=== PATIENT | male | born 1965 | race Caucasian/White ===

== ENCOUNTER 2024-10-17 13:21 | Outpatient (OUT) | payer OTHER, SELFPAY ==
--- NOTE | 2024-10-17 | CONS_ITS ---
CONSULTATION DATE: 10/17/2024 CHIEF COMPLAINT: Includes severe neck pain, worse on the left than the right side. HISTORY OF PRESENT ILLNESS: Review of systems, past medical/surgical history were obtained and documented on the health questionnaire and is available upon request. He is a 59-year-old male, reports having had pain for at least the last 10 years. It occurred spontaneously and increased gradually to its present state, where he now complains of at least 6-8/10 pain in his neck bilaterally, worse on the left than the right side. Described as a severe dull aching pain with a sharp component, and exacerbated primarily with activities such as cervical extension, performing lifting maneuvers and pushing/pulling maneuvers. He feels most comfortable in the semi-recumbent position. Denies any change in bowel and bladder habits, or new sensorimotor changes in his upper extremities. CURRENT MEDICATION: Includes ibuprofen 800 mg b.i.d. He has been using this for at least the last six months, with only marginal relief. He has tried Celebrex in the past, which caused him to feel dizzy. He has completed physical therapy in September 2024, which offered him only moderate reduction in pain symptoms. He did undergo an EMG nerve conduction velocity study of his upper extremities, which was negative for radiculopathy. His DELMY on today?s visit was 56%. EXAM: His examination today is notable for patient having no clinical radiculopathy or myelopathy on today?s visit. The patient did have significant pain with cervical facet joint loading maneuvers occurring bilaterally, worse on the left than the right side. It was difficult to determine which level was most painful. It appeared to be possibly related to the C4-5 level, but could have been at C3-4 or even the C5-6 level. This is accompanied with significant myofascial spasm and myalgia of the cervical paravertebral muscles occurring bilaterally, worse on the left than the right side. IMPRESSION Our impression is appear to have chronic pain secondary to cervical spondylosis, worse on the left than the right side, with myalgia and myofascial spasm of the cervical paravertebral muscles. RECOMMENDATIONS: I have asked him to trial Zonegran 50 mg pills, 1-2 at h.s.; baclofen 10 mg pills, half to one b.i.d. Obtain cervical spine films, PA and lateral views. Will have them place a skin marker over the most painful area to help determine which levels to consider proceeding with the medial branch block. Clinically, it appears to be at approximately the C4-5 level. Gone over the details of the procedure, a diagnostic two level bilateral medial branch block, under fluoroscopic guidance. We have gone over the details of the procedure with the patient. All of his questions were answered. He agrees to proceed with the outlined plan. As part of providing excellent, safe, comprehensive care, the following was completed at our patient's visit: 1. A medication reconciliation and review to ensure accurate knowledge of current/active medications, including asking our patients to inform us about any [id number] medications or herbal remedies/nutritional supplements/alternative remedies. 2. A review to specifically ensure our patients have had annual screening for: elevated body mass index (BMI, see intake chart for exact total), tobacco use, screening for depression, and screening for unhealthy alcohol use. When screening is concerning, patients are provided with education and the specific recommendation to discuss the concerning health issue and treatment options with their primary care provider. JON
== END 2024-10-17 13:22 | disposition home or self-care (01) ==
PROVIDERS: PCP Nurse Practitioner; Visit Provider Anesthesiology Pain Medicine
DX: M47.812 Spondylosis without myelopathy or radiculopathy, cervical region (principal); M79.18 Myalgia, other site
CPT/HCPCS: 72050; G0463

== ENCOUNTER 2024-10-17 14:58 | Outpatient (OUT) | payer OTHER, SELFPAY ==
--- NOTE | 2024-10-17 15:03 | XR_ITS ---
[facility] [place] [id number] Patient Name: JENNIFER PEDRAZA MRN: [id number] date: 1965 Sex: M Assigned Patient Location: [facility] Current Patient Location: PM Accession/Order Number: [id number] Exam Date: 10/17/2024 16:55 Report Date: 10/17/2024 16:55 At the request of: SAGE SAHNI MD Procedure: XR cervical spine 5V CERVICAL SPINE 6 views: CLINICAL HISTORY: Chronic neck pain. COMPARISON: None FINDINGS: Moderate spondylosis C4-C7 with endplate, uncovertebral and facet joint degenerative changes. Vertebral body heights appear maintained. No prevertebral soft tissue swelling. XR/XR cervical spine 5V IMPRESSION: MODERATE SPONDYLOSIS C4-C7. Impression dictated by: Xavier Joseph Jr., [email or web address]/17/2024 4:55 PM Dictation Location: [place] [id number] Electronically authenticated by: [id number] Date: 10/17/2024 16:55
== END 2024-10-17 14:59 | disposition home or self-care (01) ==
LOC: RAD 15:00
PROVIDERS: PCP Nurse Practitioner; Visit Provider Anesthesiology Pain Medicine
DX: M47.812 Spondylosis without myelopathy or radiculopathy, cervical region (principal)
CPT/HCPCS: 72050

== ENCOUNTER 2024-11-14 06:33 | Day surgery (SDC) | payer OTHER, SELFPAY ==
--- OUTSIDE RECORDS SUMMARY | 2024-11-14 06:36 | XMS_ITS | CCD ---
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 Role Phone JOZEF ROSA ISELA Referring Unavailable HASKINS, ROSA ISELA Primary Care Unavailable HASKINS, ROSA ISELA Referring Unavailable HASKINS, ROSA ISELA Primary Care Unavailable MD Pa San Attending Provider Pa San Attending Unavailable Pa San Admitting Unavailable Rosa Isela Ortega Unavailable [phone] Hermelindo GROVE Christpayaler Unavailable Jozef MEDICAL LANGUAGE SPECIALIST-Rosa Isela SOMMERS Primary Care Provid er LISBETH GRIMES Attending Unavailable ANICETO CASAREZ Attending Unavailable ROSA ISELA HASKINS Referring Unavailable LUDY CROWLEY Attending Unavailable ANICETO CASAREZ Referring Unavailable TATTERSNANDINI CASTANEDA Attending Unavailable ANICETO CASAREZ Referring Unavailable HERMELINDOANICETO BLUM Attending Unavailable LISBETH GRIMES Attending Unavailable TATTERSNANDINI CASTANEDA Attending Unavailable ANICETO CASAREZ Referring Unavailable TATNANDINI CARMEN Attending Unavailable ANICETO CASAREZ Referring Unavailable PA MATHEWS Attending Unavailable LISBETH GRIMES Referring Unavailable TATTERSNANDINI CASTANEDA Attending Unavailable ANICETO CASAREZ Referring Unavailable CARLINELUDY AGEE Attending Unavailable ANICETO CASAREZ Referring Unavailable CARLINELUDY NAVARRO Attending Unavailable ANICETO CASAREZ Referring Unavailable DANNI LUNA Attending Unavailable HERMELINDO, CHRISTINGE Referring Unavailable TATTERSNANDINI CASTANEDA Attending Unavailable ANICETO CASAREZ Referring Unavailable CARLINELUDY AGEE Attending Unavailable ANICETO CASAREZ Referring Unavailable ROSA ISELA HASKINS Attending Unavailable ROSA ISELA HASKINS Referring Unavailable HASKINS, ROSA ISELA J Primary Care Unavailable ROSA ISELA HASKINS J Attending Unavailable ROSA ISELA HASKINS Referring Unavailable ROSA ISELA HASKINS Primary Care Unavailable ROSA ISELA HASKINS Attending Unavailable ROSA ISELA HASKINS Referring Unavailable ROSA ISELA HASKINS Primary Care Unavailable ROSA ISELA HASKINS Attending Unavailable ROSA ISELA HASKINS Referring Unavailable ROSA ISELA HASKINS Primary Care Unavailable PA MATHEWS Dia Referring Unavailable ROSA ISELA HASKINS Primary Care Unavailable LISBETH GRIMES Referring Unavailable ROSA ISELA HASKINS Primary Care Unavailable LISBETH GRIMES Referring Unavailable ROSA ISELA HASKINS Primary Care Unavailable ROSA ISELA HASKINS Referring Unavailable ROSA ISELA HASKINS Primary Care Unavailable Allergies Allergy Classification Reported Allergen(s) Allergy Type Date of Onset Reaction(s) Facility (9 sources) BEE VENOM PROTEIN (HONEY BEE); Translations: [BEE VENOM PROTEIN (HONEY BEE)] Propensity to adverse reactions to drug (disorder) 1 Shortness Of Breath, Swelling [facility] (20 sources) Honey bee venom Propensity to adverse reactions 1 Shortness of breath, Swelling [facility] Medications Current Medications Medication Drug Class(es) Dates Sig (Normalized) Sig (Original) celecoxib 200 mg oral capsule (14 sources) Nonsteroidal Anti-inflammatory Drug Start: 07-20-2024 End: 09-18-2024 take 1 capsule by mouth once daily at mealtime celecoxib (CeleBREX) 200 MG capsule Indications: Polyarthralgia Take 1 capsule (200 mg) by mouth Daily Take with food 30 capsule 1 07/20/2024 09/18/2024 Active etodolac 500 mg oral tablet (20 sources) Nonsteroidal Anti-inflammatory Drug Start: 06-07-2024 take 1 tablet by mouth in the morning etodolac (Lodine) 500 MG tablet Take 500 mg by mouth in the morning and 500 mg before bedtime. 06/07/2024 Active ibuprofen 800 mg oral tablet (5 sources) Nonsteroidal Anti-inflammatory Drug Start: 11-26-2020 End: 10-19-2024 take 1 tablet by mouth every eight hours as needed for pain ibuprofen (MOTRIN) 800 mg tablet Indications: Pain in other joint Take 1 tablet (800 mg total) by mouth every 8 (eight) hours as needed for pain. Take with food 90 tablet 1 12/30/2023 10/19/2024 Discontinued (Therapy completed) metroNIDAZOLE 7.5 mg/ml topical cream (2 sources) Nitroimidazole Antimicrobial Start: 04-01-2024 End: 10-19-2024 metroNIDAZOLE (METROCREAM) 0.75 % cream APPLY TO THE FACE 1-2 TIMES DAILY 04/01/2024 10/19/2024 Discontinued (Therapy completed) predniSONE 20 mg oral tablet (5 sources) Start: 05-10-2024 End: 10-19-2024 predniSONE (DELTASONE) 20 mg tablet Indications: Pain in joints Take 1 tablet (20 mg total) by mouth See Admin Instructions. 1 tab 2x daily x3 days, 1 tab daily x3 days, 1/2 tablet daily x4 days 11 tablet 05/10/2024 10/19/2024 Discontinued (Therapy completed) Start: 10-11-2021 End: 02-01-2024 predniSONE (DELTASONE) 20 mg tablet Indications: Positive CATHY (antinuclear antibody) , Pain in other joint , Joint swelling Take 1 tablet (20 mg total) by mouth See Admin Instructions. 1 tab 2x daily x3 days, 1 tab daily x3 days, 1/2 tablet daily x4 days 11 tablet 12/30/2023 02/01/2024 Discontinued (Therapy completed) tiZANidine 4 mg oral tablet (2 sources) Central alpha-2 Adrenergic Agonist Start: 05-05-2024 End: 10-19-2024 tiZANidine (ZANAFLEX) 4 mg tablet 05/05/2024 10/19/2024 Discontinued (Therapy completed) Completed/Discontinued Medications Medication Drug Class(es) Dates Sig (Normalized) Sig (Original) [id number] 0.3 ml EPINEPHrine 1 mg/ml auto-injector (1 source) alpha-Adrenergic Agonist, beta-Adrenergic Agonist, Catecholamine Start: 12-14-2020 End: 12-30-2023 EPINEPHrine (EPIPEN) 0.3 mg/0.3 mL auto-injector Indications: Bee sting allergy , History of systemic reaction to bee sting Inject 0.3 mL (0.3 mg total) into the appropriate muscle as needed (bee sting). 1 each 1 12/14/2020 12/30/2023 Discontinued (Therapy completed) omeprazole 40 mg delayed release oral capsule (1 source) Proton Pump Inhibitor Start: 12-14-2020 End: 12-30-2023 take 1 capsule by mouth once daily before breakfast omeprazole (PriLOSEC) 40 mg capsule Indications: GERD without esophagitis Take 1 capsule (40 mg total) by mouth every morning before breakfast. 90 capsule 1 12/14/2020 12/30/2023 Discontinued (Therapy completed) Problems Active Problems Problem Classification Problem Date Documented Date Episodic/Chronic Lymphadenitis (4 sources) Lymphadenopathy of head AND/OR neck; Translations: [Localized enlarged lymph nodes] Onset: 10-19-2024 10-19-2024 Episodic Other connective tissue disease (1 source) Ganglion cyst of tendon sheath of left hand; Translations: [Ganglion, left hand] 10-19-2024 Episodic Other nervous system disorders (5 sources) Bilateral ulnar nerve disorder; Translations: [Lesion of ulnar nerve, bilateral upper limbs] 07-05-2024 Chronic Other nervous system disorders (2 sources) Bilateral carpal tunnel syndrome; Translations: [Carpal tunnel syndrome, bilateral upper limbs] 07-06-2024 Chronic Other nervous system disorders (1 source) Chronic pain syndrome; Translations: [Chronic pain syndrome] 05-10-2024 Chronic Other nervous system disorders (3 sources) Paresthesia of skin; Translations: [Disturbance of skin sensation] Onset: 09-23-2024 07-19-2024 Episodic Spondylosis; intervertebral disc disorders; other back problems (20 sources) Neck pain; Translations: [Cervicalgia] Onset: 06-20-2024 06-20-2024 Episodic Unclassified (2 sources) Pain in other specified joint; Translations: [Pain in other specified joint] Onset: 12-30-2023 Unclassified (1 source) pain in the joints- pain scale 6 Onset: 05-10-2024 Unclassified (1 source) Annual Exam Onset: 02-01-2024 Unclassified (1 source) New Patient Onset: 12-30-2023 Unclassified (1 source) Low back pain, unspecified; Translations: [Low back pain, unspecified] Onset: 11-03-2024 Past or Other Problems Problem Classification Problem Date Documented Date Episodic/Chronic Immunizations and screening for infectious disease (4 sources) Other specified abnormal immunological findings in serum; Translations: [Raised antibody titer] Onset: 12-30-2023 12-30-2023 Episodic Mood disorders (4 sources) Mood disorders Onset: 12-30-2023 Resolved: 10-19-2024 12-30-2023 Other nervous system disorders (20 sources) Paresthesia; Translations: [Paresthesia of skin] Onset: 06-20-2024 06-09-2024 Episodic Other non-traumatic joint disorders (20 sources) Multiple joint pain; Translations: [Pain in unspecified joint] Onset: 06-20-2024 06-20-2024 Episodic Other non-traumatic joint disorders (1 source) Joint pain; Translations: [Pain in other joint] 12-30-2023 Episodic Other non-traumatic joint disorders (1 source) Joint swelling; Translations: [Effusion, unspecified joint] 12-30-2023 Episodic Other non-traumatic joint disorders (2 sources) Pain in unspecified joint; Translations: [Pain in unspecified joint] Onset: 05-10-2024 Episodic Other non-traumatic joint disorders (1 source) Effusion, unspecified joint; Translations: [Effusion, unspecified joint] Onset: 12-30-2023 Episodic Other screening for suspected conditions (not mental disorders or infectious disease) (8 sources) Encounter for screening for malignant neoplasm of prostate; Translations: [Encounter for screening for diabetes mellitus] Onset: 12-30-2023 12-30-2023 Episodic Unclassified (4 sources) Onset: 12-30-2023 Resolved: 10-19-2024 12-30-2023 Results Test Name Value Interpretation Reference Range Facility CT NECK SOFT TISSUE WO CONTo n 11-06-2024 CT NECK SOFT TISSUE WO CONT CT NECK SOFT TISSUE WO CONT EXAM: CT NECK WITHOUT CONTRAST CLINICAL INFORMATION: Enlarged lymph node in neck. TECHNIQUE: CT neck without contrast was performed utilizing 5 mm axial reconstructions. Coronal and sagittal reformatted images were obtained and reviewed. Automated exposure control was utilized. COMPARISON: MRI of the cervical spine dated 09/23/2024 FINDINGS: There is symmetric soft tissue fullness in the vallecula, most compatible with reactive lingual tonsils. The mucosal and submucosal spaces of the neck are otherwise unremarkable. There are scattered relatively symmetric non and borderline enlarged lymph nodes on both sides of the neck. These are suspected reactive. No pathologically enlarged lymph nodes are identified. There is no evidence for a mass in the neck. The thyroid gland is unremarkable. The parotid and submandibular glands are symmetric and unremarkable. The carotid arteries and jugular veins are unremarkable. The limited visualized intracranial contents are unremarkable. The visualized paranasal sinuses and mastoids are clear and well aerated. The limited visualized lung apices are unremarkable. IMPRESSION: 1. Scattered relatively symmetric non and borderline enlarged lymph nodes on both sides of the neck, suspected reactive. No pathologically enlarged lymph nodes or masses are identified within the neck. 2. Soft tissue fullness in the vallecula, suspected reactive lingual tonsils. All CT scans at this facility use dose modulation, iterative reconstruction, and/or weight based dosing when appropriate to reduce radiation dose to as low as reasonably achievable. Finalized by Ole Richardson MD on 11/06/2024 6:08 AM Normal [facility] MR LUMBAR SPINE WO CONTon MR LUMBAR SPINE WO CONT MR LUMBAR SPINE WO CONT CLINICAL INFORMATION: Lumbosacral radiculopathy; Low back pain at multiple sites TECHNIQUE: MR LUMBAR SPINE WO CONT Multisequence multiplanar imaging of the lumbar spine was obtained utilizing a routine lumbar protocol. There is no significant lumbar malalignment or evidence of acute compression. Disc spaces are narrowed throughout. No obvious abnormalities sacral ala or SI joints. Conus tip at T12 without cord signal characteristic abnormality. There is a partially lumbarized S1 vertebral body. At the L5-S1 level disc osteophyte complex appreciated which produces mild to moderate neural foraminal narrowing. Central component of the disc protrusion potentially contact the left S1 nerve root. There is, however no significant central canal stenosis. At the L4-5 level left lateral disc protrusion potentially contact the left L4 nerve root. No significant stenosis, however. Mild degenerative changes present at L3-4 without significant central canal or neural foraminal compromise. The L1-2 and L2-3 levels are unremarkable. IMPRESSION: Lower lumbar degenerative changes without high-grade stenosis. Left lateral disc protrusion at L4-5 potentially contacts the left L4 nerve root. Finalized by Mil Mcdonnell MD on 11/04/2024 11:30 AM Normal [facility] MR CERVICAL SPINE WO CONTon 09-26-2024 MR CERVICAL SPINE WO CONT MR CERVICAL SPINE WO CONT STUDY: MR CERVICAL SPINE WO CONT HISTORY: Neck pain; Paresthesias TECHNIQUE: * Routine multiplanar multisequence MR imaging of the cervical spine was performed without intravenous contrast. FINDINGS: Vertebral body heights and alignment are maintained. Moderate multilevel intervertebral disc space narrowing most significant at C4-C7 with additional degenerative endplate changes. Prominent Schmorl's node at the C4 inferior endplate. Modic type I degenerative endplate changes at C5-C6. T2 vertebral body hemangioma. Visualized posterior fossa and cervical cord signal appear unremarkable. Mildly enlarged right level 2/3 lymph node (series 10, image 10). C2-C3: No significant spinal canal or neural foraminal narrowing. C3-C4: Mild facet arthropathy without significant spinal canal or neuroforaminal stenosis. C4-C5: Mild broad-based disc osteophyte complex, facet and uncovertebral arthropathy results in moderate right greater than left neuroforaminal stenosis. Mild spinal canal stenosis. C5-C6: Mild broad-based disc osteophyte complex, ligamentum flavum hypertrophy and facet and uncovertebral arthropathy results in moderate to severe right and severe left neuroforaminal stenosis. Mild to moderate spinal canal stenosis. C6-C7: Mild broad-based disc osteophyte complex with moderate to severe left neuroforaminal stenosis. Mild spinal canal stenosis. C7-T1: No significant spinal canal or neural foraminal narrowing. IMPRESSION: * Multilevel degenerative changes most significant at C4-C5, C5-C6 and C6-C7 where there is bilateral neuroforaminal stenosis as described. * Mildly enlarged right level 2/3 lymph node. Recommend follow-up with CT Soft tissue neck for complete characterization. THIS REPORT CONTAINS AN UNEXPECTED RESULT AND/OR RECOMMENDATION, WHICH REQUIRES THE ATTENTION OF THE LICENSED CAREGIVER RESPONSIBLE FOR THIS PATIENT. THEREFORE, I SPECIFICALLY DESIGNATED THIS REPORT TO BE TELEPHONED BY THE RADIOLOGY DEPARTMENT. FINDINGS WERE INSTRUCTED TO BE CALLED TO THE CLINICAL SERVICE ON 09/26/2024 1:28 PM Finalized by Cristhian Lilly on 09/26/2024 1:29 PM Normal [facility] B. burgdorferi IgG+IgM Qn (S )on 07-21-2024 LYME TOTAL <0.2 Normal <0.9 [facility] Comment on above: Result Comment: Interpretation-------- <0.9 Negative 0.9 - 1.0 Equivocal >1.0 Positive No serological evidence of Borrelia infection.A non-reactive result does not exclude the possibility of Borrelia infection and cannot exclude early infection with B.burgdorferi. If Lyme borreliosis is suspected, a second sample should be collected and tested 2-4 weeks later. Performed By: #### 8 2477-, 1987-12, 3, 19604-5 #### [facility] ([id number]) [address], [address] [place] [address] CRP [Mass/Vol]on 07-21-2024 C REACTIVE PROTEIN 0.9 mg/dL High 0.000-0.744 [facility] Comment on above: Performed By: #### 8 2477-, 1987-12, 2638-10, 34796-2 #### [facility] ([id number]) [address], [address] [place] [address] ESR (Bld) [Velocity]on 07-21 [facility] ESR Photometric method (Bld) [Velocity]on 07-21-2024 ESR, ERYTHROCYTE SEDIMENTATION RATE 10 mm/h Normal 0-20 [facility] Comment on above: Performed By: #### 8 2477-, 1987-12, 2638-10, 11649-1 #### [facility] ([id number]) [address], [address] [place] [address] Myoglobin [Mass/Vol]on 07-21 SERUM MYOGLOBIN 25.3 ng/mL Normal 17.4-105.7 [facility] Comment on above: Performed By: #### 8 2477-1, 1987-12, 2638-10, 77765-3 #### [facility] ([id number]) [address], [address] [place] [address] Sedimentation rate, automate don 07-21-2024 ESR (Bld) [Velocity] 10 mm/h 0 - 20 mm/h [facility] Comment on above: PERFORMED AT [facility] [address],[place] [address] EMG 2 Extremitieson 07-05-20 24 Ulnar neuropathy bilateral, axonal loss, non localizable Carpal tunnel, minimal bilaterally [facility] NVC 11-12 Nerveson 4 Ulnar neuropathy bilateral, axonal loss, non localizable Carpal tunnel syndrome bilaterally, minimal bilaterally [facility] CATHY Antinuclear Antibodieson 03-17-2024 Antinuclear Abs, IFA Negative Normal . [facility] Comment on above: Result Comment: Nega tive <1:80 Borderline 1:80 Positive >1:80 ICAP nomenclature: AC-0 For more information about Hep-2 cell patterns use ANApatterns.org, the official website for the International Consensus on Antinuclear Antibody (CATHY) Patterns (ICAP). Performed at: - [facility] [id number] Vessel Manager: Mil Guzman PhD, Phone: [phone] Performed By: #### T SH3, PP, ESR, CBC, CMP, CK, ADDONUAPLUS, CRP, T4F #### [facility] [address] #### HBCAB, RPR W RFX, HBSAG, HCV RX PCR, HBSAB, ALDOLASE #### [facility] , Activated partial thrombopla stin time (aPTT) in platelet poor plasma by coagulation aOrdered By: Pa San on 03-17-2024 aPTT Coag (PPP) [Time] 34.1 s 25.1-36.5 [facility] Comment on above: A hematocrit value g reater than 55% may lead to inaccurate results in coagulation testing. Patients having hematocrit values >55% require a special collection tube for coagulation studies. Please contact the laboratory at [phone] for redraw instructions. Alanine aminotransferase [En zymatic activity/volume] in Serum or PlasmaOrdered By: Pa San on 03-17-2024 ALT [Catalytic activity/Vol] 39 U/L Normal 7-52 [facility] Comment on above: Performed By: #### T SH3, PP, ESR, CBC, CMP, CK, ADDONUAPLUS, CRP, T4F #### [facility] [address] [place] [address] #### HBCAB, RPR W RFX, HBSAG, HCV RX PCR, HBSAB, ALDOLASE #### [facility] , Albumin [Mass/volume] in Ser um or Plasma by Bromocresol green (BCG) dye binding methoOrdered By: Pa San on 03-17-2024 Albumin BCG dye [Mass/Vol] 4.6 g/dL 3.5-5.7 [facility] Aldolaseon 03-17-2024 Aldolase 4.7 U/L Normal 3.3-10.3 [facility] Comment on above: Result Comment: Perf ormed at: - [facility] [address] [id number] Vessel Manager: Mil Guzman PhD, Phone: [phone] PERFORMED BY: [place] [address] PATHOLOGIST ELECTRONICS REPAIR TECHNICIAN JOSE ROGERS M.D. Performed By: #### T SH3, PP, ESR, CBC, CMP, CK, ADDONUAPLUS, CRP, T4F #### [address] #### HBCAB, RPR W RFX, HBSAG, HCV RX PCR, HBSAB, ALDOLASE #### [facility] , Alkaline phosphatase [Enzyma tic activity/volume] in Serum or PlasmaOrdered By: Pa San on 03-17-2024 ALP [Catalytic activity/Vol] 73 U/L Normal 34-104 [facility] Comment on above: Performed By: #### T SH3, PP, ESR, CBC, CMP, CK, ADDONUAPLUS, CRP, T4F #### [place] [address] [place] #### HBCAB, RPR W RFX, HBSAG, HCV RX PCR, HBSAB, ALDOLASE #### [facility] , Antithyroglobulin Abon 03-17 Antithyroglobulin Ab <1.0 Normal 0.0-0.9 [facility] Comment on above: Result Comment: Thyr oglobulin Antibody measured by [facility] [place] Method[employer] It should be noted that the presence of thyroglobulin antibodies may not be pathogenic nor diagnostic, especially at very low levels. The assay central supply aide has found that four percent of individuals without evidence of thyroid disease or autoimmunity will have positive TgAb levels up to 4 IU/mL. Performed at: [address] [id number] Vessel Manager: Mil Guzman PhD, Phone: [phone] Performed By: #### T SH3, PP, ESR, CBC, CMP, CK, ADDONUAPLUS, CRP, T4F #### [address] #### HBCAB, RPR W RFX, HBSAG, HCV RX PCR, HBSAB, ALDOLASE #### [facility] , Aspartate aminotransferase [ Enzymatic activity/volume] in Serum or PlasmaOrdered By: Pa San on 03-17-2024 AST [Catalytic activity/Vol] 28 U/L Normal 13-39 [facility] Comment on above: Performed By: #### T SH3, PP, ESR, CBC, CMP, CK, ADDONUAPLUS, CRP, T4F #### [address] #### HBCAB, RPR W RFX, HBSAG, HCV RX PCR, HBSAB, ALDOLASE #### [facility] , Automated basophil %Ordered By: Pa San on 03-17-2024 Basophils/100 WBC (Bld) 1.1 % Normal . [facility] Comment on above: Performed By: #### T SH3, PP, ESR, CBC, CMP, CK, ADDONUAPLUS, CRP, T4F #### [place] [address] [place] #### HBCAB, RPR W RFX, HBSAG, HCV RX PCR, HBSAB, ALDOLASE #### [facility] , Automated basophil countOrde red By: Pa San on 03-17-2024 Basophils (Bld) [#/Vol] 0.1 10*3/uL Normal 0.0-0.2 [facility] Comment on above: Performed By: #### T SH3, PP, ESR, CBC, CMP, CK, ADDONUAPLUS, CRP, T4F #### [address] #### HBCAB, RPR W RFX, HBSAG, HCV RX PCR, HBSAB, ALDOLASE #### [facility] , Automated blood monocyte cou ntOrdered By: Pa Blackmanrow on 03-17-2024 Monocytes (Bld) [#/Vol] 0.6 10*3/uL Normal 0.0-0.8 [facility] Comment on above: Performed By: #### T SH3, PP, ESR, CBC, CMP, CK, ADDONUAPLUS, CRP, T4F #### [place] [address] [place] #### HBCAB, RPR W RFX, HBSAG, HCV RX PCR, HBSAB, ALDOLASE #### [facility] , Automated eosinophil %Ordere d By: Pa Blackmanrow on 03-17-2024 Eosinophils/100 WBC (Bld) 2.4 % Normal . [facility] Comment on above: Performed By: #### T SH3, PP, ESR, CBC, CMP, CK, ADDONUAPLUS, CRP, T4F #### [place] [address] [place] #### HBCAB, RPR W RFX, HBSAG, HCV RX PCR, HBSAB, ALDOLASE #### [facility] , Automated eosinophil countOr dered By: Pa Blackmanrow on 03-17-2024 Eosinophils (Bld) [#/Vol] 0.2 10*3/uL Normal 0.0-0.45 [facility] Comment on above: Performed By: #### T SH3, PP, ESR, CBC, CMP, CK, ADDONUAPLUS, CRP, T4F #### [place] [address] [place] #### HBCAB, RPR W RFX, HBSAG, HCV RX PCR, HBSAB, ALDOLASE #### [facility] , Automated epithelial cells c ount in urine sediment (number/area)Ordered By: Pa Blackmanrow on 03-17-2024 Epithelial cells Auto (Urine sed) [#/Area] None seen [HPF] 0-2 [facility] Automated monocyte %Ordered By: Padewayne San on 03-17-2024 Monocytes/100 WBC (Bld) 9.3 % Normal . [facility] Comment on above: Performed By: #### T SH3, PP, ESR, CBC, CMP, CK, ADDONUAPLUS, CRP, T4F #### [facility] [address] [place] [address] #### HBCAB, RPR W RFX, HBSAG, HCV RX PCR, HBSAB, ALDOLASE #### [facility] , Automated neutrophil %Ordere d By: Pa San on 03-17-2024 Neutrophils/100 WBC (Bld) 62.7 % Normal . [facility] Comment on above: Performed By: #### T SH3, PP, ESR, CBC, CMP, CK, ADDONUAPLUS, CRP, T4F #### [facility] [address] [place] [address] #### HBCAB, RPR W RFX, HBSAG, HCV RX PCR, HBSAB, ALDOLASE #### [facility] , Bacteria [Presence] in Urine by AutomatedOrdered By: Pa San on 03-17-2024 Bacteria Auto Ql (U) None seen [HPF] None Seen [facility] Bilirubin Test strip Ql (U)O rdered By: Pa San on 03-17-2024 Bilirubin Ql (U) Negative Negative [facility] Bilirubin.total [Mass/volume ] in Serum or PlasmaOrdered By: Pa San on 03-17-2024 Bilirubin [Mass/Vol] 0.4 mg/dL Normal 0.3-1.0 [facility] Comment on above: Performed By: #### T SH3, PP, ESR, CBC, CMP, CK, ADDONUAPLUS, CRP, T4F #### [facility] [address] [place] [address] #### HBCAB, RPR W RFX, HBSAG, HCV RX PCR, HBSAB, ALDOLASE #### [facility] , C reactive protein [Mass/vol ume] in Serum or PlasmaOrdered By: Pa San on 03-17-2024 CRP [Mass/Vol] < 0.5 mg/dL 0.0-0.5 [facility] C-Reactive Proteinon CRP [Mass/Vol] mg/L Normal 0.0-0.5 [facility] Comment on above: Performed By: #### T SH3, PP, ESR, CBC, CMP, CK, ADDONUAPLUS, CRP, T4F #### [address] #### HBCAB, RPR W RFX, HBSAG, HCV RX PCR, HBSAB, ALDOLASE #### [facility] , Calcium [Mass/volume] in Ser um or PlasmaOrdered By: Pa San on 03-17-2024 Calcium [Mass/Vol] 9.1 mg/dL Normal 8.6-10.3 [facility] Comment on above: Performed By: #### T SH3, PP, ESR, CBC, CMP, CK, ADDONUAPLUS, CRP, T4F #### [facility] [address] [place] [address] [place] #### HBCAB, RPR W RFX, HBSAG, HCV RX PCR, HBSAB, ALDOLASE #### [facility] , Carbon dioxide, total [Moles /volume] in Serum or PlasmaOrdered By: Pa San on 03-17-2024 CO2 [Moles/Vol] 26.0 mmol/L Normal 21.0-31.0 [facility] Comment on above: Performed By: #### T SH3, PP, ESR, CBC, CMP, CK, ADDONUAPLUS, CRP, T4F #### [address] #### HBCAB, RPR W RFX, HBSAG, HCV RX PCR, HBSAB, ALDOLASE #### [facility] , Chloride [Moles/volume] in S caity or PlasmaOrdered By: Pa San on 03-17-2024 Chloride [Moles/Vol] 106 mmol/L Normal 98-107 [facility] Comment on above: Performed By: #### T SH3, PP, ESR, CBC, CMP, CK, ADDONUAPLUS, CRP, T4F #### [facility] [address] [place] [address] #### HBCAB, RPR W RFX, HBSAG, HCV RX PCR, HBSAB, ALDOLASE #### [facility] , Chromatin Antibodyon 024 Chromatin Antibody <0.2 Normal 0.0-0.9 [facility] Comment on above: Result Comment: Perf ormed at: - [facility] [address] [id number] Vessel Manager: Mil Guzman PhD, Phone: [phone] PERFORMED BY: [place] [address] PATHOLOGIST ELECTRONICS REPAIR TECHNICIAN JOSE ROGERS M.D. Performed By: #### T SH3, PP, ESR, CBC, CMP, CK, ADDONUAPLUS, CRP, T4F #### [address] #### HBCAB, RPR W RFX, HBSAG, HCV RX PCR, HBSAB, ALDOLASE #### [facility] , Coagulation Profileon 2023 aPTT Coag (Bld) [Time] 34.1 s Normal 25.1-36.5 [facility] Comment on above: Result Comment: A he matocrit value greater than 55% may lead to inaccurate results in coagulation testing. Patients having hematocrit values >55% require a special collection tube for coagulation studies. Please contact the laboratory at [phone] for redraw instructions. PERFORMED BY: [place] [address] PATHOLOGIST ELECTRONICS REPAIR TECHNICIAN JOSE ROGERS M.D. Performed By: #### T SH3, PP, ESR, CBC, CMP, CK, ADDONUAPLUS, CRP, T4F #### [address] #### HBCAB, RPR W RFX, HBSAG, HCV RX PCR, HBSAB, ALDOLASE #### [facility] , Color of Urine by AutoOrdere d By: Pa San on 03-17-2024 Color (U) Yellow Normal Yellow [facility] Comment on above: Order Comment: Name Collection Type:: Clean-Voided Midstream Performed By: #### T SH3, PP, ESR, CBC, CMP, CK, ADDONUAPLUS, CRP, T4F #### [address] #### HBCAB, RPR W RFX, HBSAG, HCV RX PCR, HBSAB, ALDOLASE #### [facility] , Complement C3on 03-17-2024 Complement C3 132 mg/dL Normal 82-167 [facility] Comment on above: Result Comment: Perf ormed at: - [facility] [address] [id number] Vessel Manager: Mil Guzman PhD, Phone: [phone] Performed By: #### T SH3, PP, ESR, CBC, CMP, CK, ADDONUAPLUS, CRP, T4F #### [address] #### HBCAB, RPR W RFX, HBSAG, HCV RX PCR, HBSAB, ALDOLASE #### [facility] , Complement C4on 03-17-2024 Complement C4 26 mg/dL Normal 12-38 [facility] Comment on above: Performed By: #### T SH3, PP, ESR, CBC, CMP, CK, ADDONUAPLUS, CRP, T4F #### [place] [address] [place] #### HBCAB, RPR W RFX, HBSAG, HCV RX PCR, HBSAB, ALDOLASE #### [facility] , Complement Total (CH50)on Complement Total (CH50) >60 Normal >41 [facility] Comment on above: Result Comment: Age Male Female 1 - 30 days Not Estab. Not Estab. 31 days - 6 months >32 >20 7 months - 17 years >39 >39 >17 years >41 >41 NOTE: The adult ( >17 years ) reference interval range is used to flag abnormals on this report. If the patient is 17 years old or younger, use the table above to determine out of range values. Performed at: - [facility] [id number] Vessel Manager: Mil Guzman PhD, Phone: [phone] PERFORMED BY: [place] [address] PATHOLOGIST ELECTRONICS REPAIR TECHNICIAN JOSE ROGERS M.D. Performed By: #### T SH3, PP, ESR, CBC, CMP, CK, ADDONUAPLUS, CRP, T4F #### [address] #### HBCAB, RPR W RFX, HBSAG, HCV RX PCR, HBSAB, ALDOLASE #### [facility] , Complete Blood Count Auto Di ffon 03-17-2024 Mean Corpuscular HGB Conc 34.2 g/dL Normal 32.5-35.6 [facility] Comment on above: Performed By: #### T SH3, PP, ESR, CBC, CMP, CK, ADDONUAPLUS, CRP, T4F #### [facility] [address] [place] [address] #### HBCAB, RPR W RFX, HBSAG, HCV RX PCR, HBSAB, ALDOLASE #### [facility] , NRBC% 0.2 /100{WBC} Normal 0-0.5 [facility] Comment on above: Performed By: #### T SH3, PP, ESR, CBC, CMP, CK, ADDONUAPLUS, CRP, T4F #### [facility] [address] [place] [address] [place] #### HBCAB, RPR W RFX, HBSAG, HCV RX PCR, HBSAB, ALDOLASE #### [facility] , Comprehensive Metabolic Pane solomon 03-17-2024 Albumin [Mass/Vol] 4.6 g/dL Normal 3.5-5.7 [facility] Comment on above: Performed By: #### T SH3, PP, ESR, CBC, CMP, CK, ADDONUAPLUS, CRP, T4F #### [facility] [address] [place] [address] [place] #### HBCAB, RPR W RFX, HBSAG, HCV RX PCR, HBSAB, ALDOLASE #### [facility] , GFR/1.73 sq M.predicted MDRD (S/P/Bld) [Vol rate/Area] mL/min/{1.73_m2} Normal [facility] Comment on above: Performed By: #### T SH3, PP, ESR, CBC, CMP, CK, ADDONUAPLUS, CRP, T4F #### [place] [address] [place] #### HBCAB, RPR W RFX, HBSAG, HCV RX PCR, HBSAB, ALDOLASE #### [facility] , Creatine kinase [Enzymatic a ctivity/volume] in Serum or PlasmaOrdered By: Pa San on 03-17-2024 CK [Catalytic activity/Vol] 79 U/L Normal 30-223 [facility] Comment on above: Result Comment: PERF ORMED BY: [place] [address] PATHOLOGIST ELECTRONICS REPAIR TECHNICIAN JOSE ROGERS M.D. Performed By: #### T SH3, PP, ESR, CBC, CMP, CK, ADDONUAPLUS, CRP, T4F #### [facility] [address] [place] [address] [place] #### HBCAB, RPR W RFX, HBSAG, HCV RX PCR, HBSAB, ALDOLASE #### [facility] , Creatinine [Mass/volume] in Serum or PlasmaOrdered By: Pa San on 03-17-2024 Creatinine [Mass/Vol] 0.85 mg/dL Normal 0.70-1.30 [facility] Comment on above: Performed By: #### T SH3, PP, ESR, CBC, CMP, CK, ADDONUAPLUS, CRP, T4F #### [address] #### HBCAB, RPR W RFX, HBSAG, HCV RX PCR, HBSAB, ALDOLASE #### [facility] , Dipstick and Microscopicon 0 03-17-2024 Appearance (U) Clear Normal Clear [facility] Comment on above: Order Comment: Name Collection Type:: Clean-Voided Midstream Performed By: #### T SH3, PP, ESR, CBC, CMP, CK, ADDONUAPLUS, CRP, T4F #### [address] #### HBCAB, RPR W RFX, HBSAG, HCV RX PCR, HBSAB, ALDOLASE #### [facility] , Bacteria,Urine None Seen Normal None Seen [facility] Comment on above: Order Comment: Name Collection Type:: Clean-Voided Midstream Performed By: #### T SH3, PP, ESR, CBC, CMP, CK, ADDONUAPLUS, CRP, T4F #### [address] #### HBCAB, RPR W RFX, HBSAG, HCV RX PCR, HBSAB, ALDOLASE #### [facility] , Bilirubin,Urine Negative Normal Negative [facility] Comment on above: Order Comment: Name Collection Type:: Clean-Voided Midstream Performed By: #### T SH3, PP, ESR, CBC, CMP, CK, ADDONUAPLUS, CRP, T4F #### [address] #### HBCAB, RPR W RFX, HBSAG, HCV RX PCR, HBSAB, ALDOLASE #### [facility] , Glucose Ql (U) Normal Normal Normal [facility] Comment on above: Order Comment: Name Collection Type:: Clean-Voided Midstream Performed By: #### T SH3, PP, ESR, CBC, CMP, CK, ADDONUAPLUS, CRP, T4F #### [address] #### HBCAB, RPR W RFX, HBSAG, HCV RX PCR, HBSAB, ALDOLASE #### [facility] , Hyaline Casts,Urine None Seen Normal 0-8 [facility] Comment on above: Order Comment: Name Collection Type:: Clean-Voided Midstream Result Comment: PERF ORMED BY: [place] [address] PATHOLOGIST ELECTRONICS REPAIR TECHNICIAN JOSE ROGERS M.D. Performed By: #### T SH3, PP, ESR, CBC, CMP, CK, ADDONUAPLUS, CRP, T4F #### [address] #### HBCAB, RPR W RFX, HBSAG, HCV RX PCR, HBSAB, ALDOLASE #### [facility] , Ketones Ql (U) Negative Normal Negative [facility] Comment on above: Order Comment: Name Collection Type:: Clean-Voided Midstream Performed By: #### T SH3, PP, ESR, CBC, CMP, CK, ADDONUAPLUS, CRP, T4F #### [address] #### HBCAB, RPR W RFX, HBSAG, HCV RX PCR, HBSAB, ALDOLASE #### [facility] , Leukocyte esterase Test strip Ql (U) Negative Normal Negative [facility] Comment on above: Order Comment: Name Collection Type:: Clean-Voided Midstream Performed By: #### T SH3, PP, ESR, CBC, CMP, CK, ADDONUAPLUS, CRP, T4F #### [address] [place] [address] [place] #### HBCAB, RPR W RFX, HBSAG, HCV RX PCR, HBSAB, ALDOLASE #### [facility] , Nitrite,Urine Negative Normal Negative [facility] Comment on above: Order Comment: Name Collection Type:: Clean-Voided Midstream Performed By: #### T SH3, PP, ESR, CBC, CMP, CK, ADDONUAPLUS, CRP, T4F #### [address] #### HBCAB, RPR W RFX, HBSAG, HCV RX PCR, HBSAB, ALDOLASE #### [facility] , Occult Blood,Urine Negative Normal Negative [facility] Comment on above: Order Comment: Name Collection Type:: Clean-Voided Midstream Performed By: #### T SH3, PP, ESR, CBC, CMP, CK, ADDONUAPLUS, CRP, T4F #### [address] #### HBCAB, RPR W RFX, HBSAG, HCV RX PCR, HBSAB, ALDOLASE #### [facility] , Protein,Urine Negative Normal Negative [facility] Comment on above: Order Comment: Name Collection Type:: Clean-Voided Midstream Performed By: #### T SH3, PP, ESR, CBC, CMP, CK, ADDONUAPLUS, CRP, T4F #### [address] #### HBCAB, RPR W RFX, HBSAG, HCV RX PCR, HBSAB, ALDOLASE #### [facility] , RBC LM.HPF (Urine sed) [#/Area] 0 /[HPF] Normal 0-4 [facility] Comment on above: Order Comment: Name Collection Type:: Clean-Voided Midstream Performed By: #### T SH3, PP, ESR, CBC, CMP, CK, ADDONUAPLUS, CRP, T4F #### [address] #### HBCAB, RPR W RFX, HBSAG, HCV RX PCR, HBSAB, ALDOLASE #### [facility] , Specificy [place],Urine 1.014 Normal 1.001-1.030 [facility] Comment on above: Order Comment: Name Collection Type:: Clean-Voided Midstream Performed By: #### T SH3, PP, ESR, CBC, CMP, CK, ADDONUAPLUS, CRP, T4F #### [address] #### HBCAB, RPR W RFX, HBSAG, HCV RX PCR, HBSAB, ALDOLASE #### [facility] , Squamous Epithelial Cell,Urine None Seen Normal 0-2 [facility] Comment on above: Order Comment: Name Collection Type:: Clean-Voided Midstream Performed By: #### T SH3, PP, ESR, CBC, CMP, CK, ADDONUAPLUS, CRP, T4F #### [address] #### HBCAB, RPR W RFX, HBSAG, HCV RX PCR, HBSAB, ALDOLASE #### [facility] , Urobilinogen,Urine Normal Normal Normal [facility] Comment on above: Order Comment: Name Collection Type:: Clean-Voided Midstream Performed By: #### T SH3, PP, ESR, CBC, CMP, CK, ADDONUAPLUS, CRP, T4F #### [address] #### HBCAB, RPR W RFX, HBSAG, HCV RX PCR, HBSAB, ALDOLASE #### [facility] , WBC,Urine None Seen Normal 0-4 [facility] Comment on above: Order Comment: Name Collection Type:: Clean-Voided Midstream Performed By: #### T SH3, PP, ESR, CBC, CMP, CK, ADDONUAPLUS, CRP, T4F #### [address] #### HBCAB, RPR W RFX, HBSAG, HCV RX PCR, HBSAB, ALDOLASE #### [facility] , Erythrocyte Sedimentation Ra elijah 03-17-2024 ESR (Bld) [Velocity] 32 mm/h High 0-19 [facility] Comment on above: Result Comment: PERF ORMED BY: [place] [address] PATHOLOGIST ELECTRONICS REPAIR TECHNICIAN JOSE ROGERS M.D. Performed By: #### T SH3, PP, ESR, CBC, CMP, CK, ADDONUAPLUS, CRP, T4F #### [facility] [address] [place] [address] #### HBCAB, RPR W RFX, HBSAG, HCV RX PCR, HBSAB, ALDOLASE #### [facility] , Erythrocyte distribution wid th [Ratio] by Automated countOrdered By: Pa San on 03-17-2024 Erythrocyte distribution width (RBC) [Ratio] 13.5 % Normal 12.0-14.8 [facility] Comment on above: Performed By: #### T SH3, PP, ESR, CBC, CMP, CK, ADDONUAPLUS, CRP, T4F #### [facility] [address] [place] [address] #### HBCAB, RPR W RFX, HBSAG, HCV RX PCR, HBSAB, ALDOLASE #### [facility] , Erythrocyte sedimentation ra te by Photometric methodOrdered By: Pa San on 03-17-2024 ESR Photometric method (Bld) [Velocity] 32 mm/hr High 0-19 [facility] Erythrocytes [#/area] in Uri ne sediment by Automated countOrdered By: Pa San on 03-17-2024 RBC Auto (Urine sed) [#/Area] 0-1 [HPF] 0-4 [facility] Erythrocytes [#/volume] in B lood by Automated countOrdered By: Pa San on 03-17-2024 RBC (Bld) [#/Vol] 4.88 10*6/uL Normal 3.90-5.60 [facility] Comment on above: Performed By: #### T SH3, PP, ESR, CBC, CMP, CK, ADDONUAPLUS, CRP, T4F #### [facility] [address] [place] [address] #### HBCAB, RPR W RFX, HBSAG, HCV RX PCR, HBSAB, ALDOLASE #### [facility] , Glucose [Mass/volume] in Ser um or PlasmaOrdered By: Pa San on 03-17-2024 Glucose [Mass/Vol] 88 mg/dL Normal 70-100 [facility] Comment on above: ADA recommended refe rence rangeRandom Glucose Reference Range is dependent on time and content of last meal. Glucose of more than 200 mg/dL in a nonstressed, ambulatory subject supports the diagnosis of Diabetes Mellitus. Result Comment: [place] om Glucose Reference Range is dependent on time and content of last meal. Glucose of more than 200 mg/dL in a nonstressed, ambulatory subject supports the diagnosis of Diabetes Mellitus. ADA recommended reference range Performed By: #### T SH3, PP, ESR, CBC, CMP, CK, ADDONUAPLUS, CRP, T4F #### [address] #### HBCAB, RPR W RFX, HBSAG, HCV RX PCR, HBSAB, ALDOLASE #### [facility] , Hematocrit [Volume Fraction] of Blood by Automated countOrdered By: Pa San on 03-17-2024 Hematocrit (Bld) [Volume fraction] 46.7 % Normal 38.8-50.0 [facility] Comment on above: Performed By: #### T SH3, PP, ESR, CBC, CMP, CK, ADDONUAPLUS, CRP, T4F #### [place] [address] [place] #### HBCAB, RPR W RFX, HBSAG, HCV RX PCR, HBSAB, ALDOLASE #### [facility] , Hemoglobin [Mass/volume] in BloodOrdered By: Pa San on 03-17-2024 Hemoglobin (Bld) [Mass/Vol] 16.0 g/dL Normal 13.0-17.0 [facility] Comment on above: Performed By: #### T SH3, PP, ESR, CBC, CMP, CK, ADDONUAPLUS, CRP, T4F #### [facility] [address] [place] [address] [place] #### HBCAB, RPR W RFX, HBSAG, HCV RX PCR, HBSAB, ALDOLASE #### [facility] , Hep C Ab wRfx to Qnt PCRon 0 03-17-2024 Hepatitis C Virus Antibody Non-Reactive Normal Non Reactive [facility] Comment on above: Performed By: #### T SH3, PP, ESR, CBC, CMP, CK, ADDONUAPLUS, CRP, T4F #### [address] #### HBCAB, RPR W RFX, HBSAG, HCV RX PCR, HBSAB, ALDOLASE #### [facility] , Interpretation Hepatitis C Comment Normal . [facility] Comment on above: Result Comment: Not infected with HCV unless early or acute infection is suspected (which may be delayed in an immunocompromised individual), or other evidence exists to indicate HCV infection. Performed By: #### T SH3, PP, ESR, CBC, CMP, CK, ADDONUAPLUS, CRP, T4F #### [place] [address] [place] #### HBCAB, RPR W RFX, HBSAG, HCV RX PCR, HBSAB, ALDOLASE #### [facility] , Hepatitis B Core Antibodyon 03-17-2024 Hepatitis B Core Antibody Negative Normal Negative [facility] Comment on above: Result Comment: Perf ormed at: - [facility] [id number] Vessel Manager: Mil Guzman PhD, Phone: [phone] Performed By: #### T SH3, PP, ESR, CBC, CMP, CK, ADDONUAPLUS, CRP, T4F #### [place] [address] [place] #### HBCAB, RPR W RFX, HBSAG, HCV RX PCR, HBSAB, ALDOLASE #### [facility] , Hepatitis B Surface Antibody on 03-17-2024 Hepatitis B Surface Antibody Non-Reactive Normal . [facility] Comment on above: Result Comment: Non Reactive: Inconsistent with immunity, less than 10 mIU/mL Reactive: Consistent with immunity, greater than 9.9 mIU/mL Performed By: #### T SH3, PP, ESR, CBC, CMP, CK, ADDONUAPLUS, CRP, T4F #### [facility] [address] #### HBCAB, RPR W RFX, HBSAG, HCV RX PCR, HBSAB, ALDOLASE #### [facility] , Hepatitis B Surface Antigeno n 03-17-2024 HBsAg Screen Negative Normal Negative [facility] Comment on above: Result Comment: PERF ORMED BY: [place] [address] PATHOLOGIST ELECTRONICS REPAIR TECHNICIAN JOSE ROGERS M.D. Performed By: #### T SH3, PP, ESR, CBC, CMP, CK, ADDONUAPLUS, CRP, T4F #### [facility] [address] [place] [address] #### HBCAB, RPR W RFX, HBSAG, HCV RX PCR, HBSAB, ALDOLASE #### [facility] , INR in Platelet poor plasma by Coagulation assayOrdered By: Pa San on 03-17-2024 INR Coag (PPP) [Relative time] 1.0 {INR} Normal [facility] Comment on above: INR Therapeutic Rang e A) Pre- and Peroperative OAT started two weeks before surgery. NOT HIP SURGERY: 1.5 - 2.5 HIP SURGERY: 2 - 3B) Primary and secondary prevention of venous THROMBOSIS: 2 - 3C) Active venous thrombosis, pulmonary embolismand prevention of recurrent venous thrombosis: 2 - 3D) Prevention of arterial thromboembolismincluding patients with mechanical heart valves: 3 - 4.5 Result Comment: INR Therapeutic Range A) Pre- and Peroperative OAT started two weeks before surgery. NOT HIP SURGERY: 1.5 - 2.5 HIP SURGERY: 2 - 3 B) Primary and secondary prevention of venous THROMBOSIS: 2 - 3 C) Active venous thrombosis, pulmonary embolism and prevention of recurrent venous thrombosis: 2 - 3 D) Prevention of arterial thromboembolism including patients with mechanical heart valves: 3 - 4.5 Performed By: #### T SH3, PP, ESR, CBC, CMP, CK, ADDONUAPLUS, CRP, T4F #### [facility] [address] [place] [address] [place] #### HBCAB, RPR W RFX, HBSAG, HCV RX PCR, HBSAB, ALDOLASE #### [facility] , Ketones Auto test strip (U) [Mass/Vol]Ordered By: Pa San on 03-17-2024 Ketones (U) [Mass/Vol] Negative Negative [facility] - UrinalysisOrder ed By: Pa San on 03-17-2024 Hyaline casts LM Ql (Urine sed) None seen [LPF] 0-8 [facility] Leukocytes [#/area] in Urine sediment by Automated countOrdered By: Pa San on 03-17-2024 WBC Auto (Urine sed) [#/Area] None seen [HPF] 0-4 [facility] Leukocytes [#/volume] correc ameya for nucleated erythrocytes in Blood by Automated counOrdered By: Pa San on 03-17-2024 WBC corrected for nucl RBC Auto (Bld) [#/Vol] 6.5 10*3/uL 4.1-10.5 [facility] Leukocytes [#/volume] in Blo od by Automated countOrdered By: Pa San on 03-17-2024 WBC (Bld) [#/Vol] 6.5 10*3/uL Normal 4.1-10.5 [facility] Comment on above: Performed By: #### T SH3, PP, ESR, CBC, CMP, CK, ADDONUAPLUS, CRP, T4F #### [facility] [address] [place] [address] [place] #### HBCAB, RPR W RFX, HBSAG, HCV RX PCR, HBSAB, ALDOLASE #### [facility] , Lupus Anticoagulant Compon 0 03-17-2024 Dilute Prothrombin Time (dPt) 35.0 Normal 0.0-47.6 [facility] Comment on above: Performed By: #### T SH3, PP, ESR, CBC, CMP, CK, ADDONUAPLUS, CRP, T4F #### [address] #### HBCAB, RPR W RFX, HBSAG, HCV RX PCR, HBSAB, ALDOLASE #### [facility] , dPT Confirm Ratio 1.04 Normal 0.00-1.34 [facility] Comment on above: Performed By: #### T SH3, PP, ESR, CBC, CMP, CK, ADDONUAPLUS, CRP, T4F #### [address] #### HBCAB, RPR W RFX, HBSAG, HCV RX PCR, HBSAB, ALDOLASE #### [facility] , DRVVT Lupus 31.6 Normal 0.0-47.0 [facility] Comment on above: Performed By: #### T SH3, PP, ESR, CBC, CMP, CK, ADDONUAPLUS, CRP, T4F #### [address] #### HBCAB, RPR W RFX, HBSAG, HCV RX PCR, HBSAB, ALDOLASE #### [facility] , Interpretation Comment: Normal . [facility] Comment on above: Result Comment: No l upus anticoagulant was detected. Performed at: - [facility] [id number] Vessel Manager: Elvira Barajas MD, Phone: [phone] PERFORMED BY: [place] [address] PATHOLOGIST ELECTRONICS REPAIR TECHNICIAN JOSE ROGERS M.D. Performed By: #### T SH3, PP, ESR, CBC, CMP, CK, ADDONUAPLUS, CRP, T4F #### [address] #### HBCAB, RPR W RFX, HBSAG, HCV RX PCR, HBSAB, ALDOLASE #### [facility] , PTT-LA 37.6 Normal 0.0-43.5 [facility] Comment on above: Performed By: #### T SH3, PP, ESR, CBC, CMP, CK, ADDONUAPLUS, CRP, T4F #### [address] #### HBCAB, RPR W RFX, HBSAG, HCV RX PCR, HBSAB, ALDOLASE #### [facility] , Thrombin Time 17.0 Normal 0.0-23.0 [facility] Comment on above: Performed By: #### T SH3, PP, ESR, CBC, CMP, CK, ADDONUAPLUS, CRP, T4F #### [address] #### HBCAB, RPR W RFX, HBSAG, HCV RX PCR, HBSAB, ALDOLASE #### [facility] , Lymphocytes [#/volume] in Bl ood by Automated countOrdered By: Pa San on 03-17-2024 Lymphocytes (Bld) [#/Vol] 1.6 10*3/uL Normal 1.00-4.8 [facility] Comment on above: Performed By: #### T SH3, PP, ESR, CBC, CMP, CK, ADDONUAPLUS, CRP, T4F #### [address] #### HBCAB, RPR W RFX, HBSAG, HCV RX PCR, HBSAB, ALDOLASE #### [facility] , Lymphocytes/100 leukocytes i n Blood by Automated countOrdered By: Pa San on 03-17-2024 Lymphocytes/100 WBC (Bld) 24.5 % Normal . [facility] Comment on above: Performed By: #### T SH3, PP, ESR, CBC, CMP, CK, ADDONUAPLUS, CRP, T4F #### [address] [place] [address] [place] #### HBCAB, RPR W RFX, HBSAG, HCV RX PCR, HBSAB, ALDOLASE #### [facility] , MCH [Entitic mass] by Automa ameya countOrdered By: Pa Mena on 03-17-2024 MCH (RBC) [Entitic mass] 32.7 pg Normal 27.5-35.2 [facility] Comment on above: Performed By: #### T SH3, PP, ESR, CBC, CMP, CK, ADDONUAPLUS, CRP, T4F #### [address] #### HBCAB, RPR W RFX, HBSAG, HCV RX PCR, HBSAB, ALDOLASE #### [facility] , MCHC Auto (RBC) [Mass/Vol]Or dered By: Pa San on 03-17-2024 MCHC (RBC) [Mass/Vol] 34.2 g/dL 32.5-35.6 [facility] MCV [Entitic volume] by Auto mated countOrdered By: Pa San on 03-17-2024 MCV (RBC) [Entitic vol] 95.7 fL Normal 83.5-101 [facility] Comment on above: Performed By: #### T SH3, PP, ESR, CBC, CMP, CK, ADDONUAPLUS, CRP, T4F #### [facility] [address] [place] [address] #### HBCAB, RPR W RFX, HBSAG, HCV RX PCR, HBSAB, ALDOLASE #### [facility] , Neutrophils [#/volume] in Bl ood by Automated countOrdered By: Pa San on 03-17-2024 Neutrophils (Bld) [#/Vol] 4.1 10*3/uL Normal 1.8-7.7 [facility] Comment on above: Performed By: #### T SH3, PP, ESR, CBC, CMP, CK, ADDONUAPLUS, CRP, T4F #### [facility] [address] [place] [address] [place] #### HBCAB, RPR W RFX, HBSAG, HCV RX PCR, HBSAB, ALDOLASE #### [facility] , Nitrite Test strip Ql (U)Ord ered By: Pa San on 03-17-2024 Nitrite Ql (U) Negative Negative [facility] No Panel InformationOrdered By: Pa Blackmanrow on 03-17-2024 Estimated GFR (CKD-EPI) > 60.0 mL/Min [facility] Creatinine Clearance (Chem N/A [facility] Nucleated erythrocytes [Pres ence] in Blood by Automated countOrdered By: Pa Blackmanrow on 03-17-2024 Nucleated RBC Auto Ql (Bld) 0.2 /100{WBC} 0-0.5 [facility] Platelet mean volume [Entiti c volume] in Blood by Automated countOrdered By: Pa Mena on 03-17-2024 Platelet mean volume (Bld) [Entitic vol] 8.9 fL Normal 6.6-10.1 [facility] Comment on above: Performed By: #### T SH3, PP, ESR, CBC, CMP, CK, ADDONUAPLUS, CRP, T4F #### [facility] [address] [place] [address] [place] #### HBCAB, RPR W RFX, HBSAG, HCV RX PCR, HBSAB, ALDOLASE #### [facility] , Platelets [#/volume] in Bloo d by Automated countOrdered By: Pa Mena on 03-17-2024 Platelets (Bld) [#/Vol] 258 10*3/uL Normal 150-450 [facility] Comment on above: Performed By: #### T SH3, PP, ESR, CBC, CMP, CK, ADDONUAPLUS, CRP, T4F #### [facility] [address] [place] [address] [place] #### HBCAB, RPR W RFX, HBSAG, HCV RX PCR, HBSAB, ALDOLASE #### [facility] , Potassium [Moles/volume] in Serum or PlasmaOrdered By: Pa San on 03-17-2024 Potassium [Moles/Vol] 4.8 mmol/L Normal 3.5-5.1 [facility] Comment on above: Performed By: #### T SH3, PP, ESR, CBC, CMP, CK, ADDONUAPLUS, CRP, T4F #### [facility] [address] #### HBCAB, RPR W RFX, HBSAG, HCV RX PCR, HBSAB, ALDOLASE #### [facility] , Protein Auto test strip (U) [Mass/Vol]Ordered By: Pa San on 03-17-2024 Protein (U) [Mass/Vol] Negative Negative [facility] Protein [Mass/volume] in Ser um or PlasmaOrdered By: Pa Blackmanrow on 03-17-2024 Protein [Mass/Vol] 7.6 g/dL Normal 6.4-8.9 [facility] Comment on above: Performed By: #### T SH3, PP, ESR, CBC, CMP, CK, ADDONUAPLUS, CRP, T4F #### [facility] [address] #### HBCAB, RPR W RFX, HBSAG, HCV RX PCR, HBSAB, ALDOLASE #### [facility] , Prothrombin time (PT)Ordered By: Pa Blackmanrow on 03-17-2024 PT Coag (PPP) [Time] 11.3 s Normal 9.0-12.9 [facility] Comment on above: A hematocrit value g reater than 55% may lead to inaccurate results in coagulation testing. Patients having hematocrit values >55% require a special collection tube for coagulation studies. Please contact the laboratory at [phone] for redraw instructions. Result Comment: A he matocrit value greater than 55% may lead to inaccurate results in coagulation testing. Patients having hematocrit values >55% require a special collection tube for coagulation studies. Please contact the laboratory at [phone] for redraw instructions. Performed By: #### T SH3, PP, ESR, CBC, CMP, CK, ADDONUAPLUS, CRP, T4F #### [facility] [address] [place] [address] #### HBCAB, RPR W RFX, HBSAG, HCV RX PCR, HBSAB, ALDOLASE #### [facility] , RPR w/rfx to Quant TP Abson 03-17-2024 RPR, Rfx Quant RPR Non-Reactive Normal Non Reactive [facility] Comment on above: Result Comment: Perf ormed at: CB - [facility] [address] [id number] Vessel Manager: Mil Guzman PhD, Phone: [phone] PERFORMED BY: [place] [address] PATHOLOGIST ELECTRONICS REPAIR TECHNICIAN JOSE ROGERS M.D. Performed By: #### T SH3, PP, ESR, CBC, CMP, CK, ADDONUAPLUS, CRP, T4F #### [address] #### HBCAB, RPR W RFX, HBSAG, HCV RX PCR, HBSAB, ALDOLASE #### [facility] , Serum globulin measurement b y calculation (mass/volume)Ordered By: Pa San on 03-17-2024 Globulin (S) [Mass/Vol] 3.0 g/dL [facility] Comment on above: Performed By: #### T SH3, PP, ESR, CBC, CMP, CK, ADDONUAPLUS, CRP, T4F #### [address] #### HBCAB, RPR W RFX, HBSAG, HCV RX PCR, HBSAB, ALDOLASE #### [facility] , Serum or plasma albumin/glob ulin mass ratioOrdered By: Pa San on 03-17-2024 Albumin/Globulin [Mass ratio] 1.5 {ratio} Normal [facility] Comment on above: Performed By: #### T SH3, PP, ESR, CBC, CMP, CK, ADDONUAPLUS, CRP, T4F #### [address] #### HBCAB, RPR W RFX, HBSAG, HCV RX PCR, HBSAB, ALDOLASE #### [facility] , Serum or plasma anion gap de terminationOrdered By: Pa San on 03-17-2024 Anion gap [Moles/Vol] 12.8 mmol/L Normal 6.0-15.0 [facility] Comment on above: Performed By: #### T SH3, PP, ESR, CBC, CMP, CK, ADDONUAPLUS, CRP, T4F #### [facility] [address] [place] [address] #### HBCAB, RPR W RFX, HBSAG, HCV RX PCR, HBSAB, ALDOLASE #### [facility] , Sodium [Moles/volume] in Ser um or PlasmaOrdered By: Pa San on 03-17-2024 Sodium [Moles/Vol] 140 mmol/L Normal 136-145 [facility] Comment on above: Performed By: #### T SH3, PP, ESR, CBC, CMP, CK, ADDONUAPLUS, CRP, T4F #### [facility] [address] [place] [address] #### HBCAB, RPR W RFX, HBSAG, HCV RX PCR, HBSAB, ALDOLASE #### [facility] , Specific gravity Auto test s trip (U) [Rel density]Ordered By: Pa San on 03-17-2024 Specific gravity (U) [Rel density] 1.014 1.001-1.030 [facility] Thyroid Peroxidase Antibodie son 03-17-2024 Thyroid Peroxidase Antibodies <9 Normal 0-34 [facility] Comment on above: Result Comment: Perf ormed at: - [facility] [address] [id number] Vessel Manager: Mil Guzman PhD, Phone: [phone] Performed By: #### T SH3, PP, ESR, CBC, CMP, CK, ADDONUAPLUS, CRP, T4F #### [facility] [address] [place] [address] [place] #### HBCAB, RPR W RFX, HBSAG, HCV RX PCR, HBSAB, ALDOLASE #### [facility] , Thyrotropin [Units/volume] i n Serum or PlasmaOrdered By: Pa San on 03-17-2024 TSH Qn 3.54 m[IU]/L Normal 0.45-5.33 [facility] Comment on above: Result Comment: PERF ORMED BY: [place] [address] PATHOLOGIST ELECTRONICS REPAIR TECHNICIAN JOSE ROGERS M.D. Performed By: #### T SH3, PP, ESR, CBC, CMP, CK, ADDONUAPLUS, CRP, T4F #### [address] #### HBCAB, RPR W RFX, HBSAG, HCV RX PCR, HBSAB, ALDOLASE #### [facility] , Thyroxine (T4) free [Mass/vo lume] in Serum or PlasmaOrdered By: Pa San on 03-17-2024 Free T4 [Mass/Vol] 0.78 ng/dL Normal 0.61-1.12 [facility] Comment on above: Performed By: #### T SH3, PP, ESR, CBC, CMP, CK, ADDONUAPLUS, CRP, T4F #### [facility] [address] [place] [address] #### HBCAB, RPR W RFX, HBSAG, HCV RX PCR, HBSAB, ALDOLASE #### [facility] , Urea nitrogen [Mass/volume] in Serum or PlasmaOrdered By: Pa San on 03-17-2024 Urea nitrogen [Mass/Vol] 11 mg/dL Normal 7-25 [facility] Comment on above: Performed By: #### T SH3, PP, ESR, CBC, CMP, CK, ADDONUAPLUS, CRP, T4F #### [address] #### HBCAB, RPR W RFX, HBSAG, HCV RX PCR, HBSAB, ALDOLASE #### [facility] , Urine clarity by refractomet ry automatedOrdered By: Pa Mena on 03-17-2024 Clarity Refractometry automated (U) Clear Clear [facility] Urine glucose measurement by automated test strip (mass/volume)Ordered By: Pa Mena on 03-17-2024 Glucose Auto test strip (U) [Mass/Vol] Normal mg/dL Normal [facility] Urine hemoglobin detection b y automated test stripOrdered By: Pa Mena on 03-17-2024 Hemoglobin Auto test strip Ql (U) Negative Negative [facility] Urine leukocyte esterase det ection by automated test stripOrdered By: Pa Mena on 03-17-2024 Leukocyte esterase Auto test strip Ql (U) Negative Negative [facility] Urine pH measurement by auto mated test stripOrdered By: Pa San on 03-17-2024 pH (U) 5.5 [pH] Normal 5.0-9.0 [facility] Comment on above: Order Comment: Name Collection Type:: Clean-Voided Midstream Performed By: #### T SH3, PP, ESR, CBC, CMP, CK, ADDONUAPLUS, CRP, T4F #### [facility] [address] #### HBCAB, RPR W RFX, HBSAG, HCV RX PCR, HBSAB, ALDOLASE #### [facility] , Urobilinogen Auto test strip (U) [Mass/Vol]Ordered By: Pa San on 03-17-2024 Urobilinogen (U) [Mass/Vol] Normal mg/dL Normal [facility] Lipid 1996 panelon 4 Cholesterol [Mass/Vol] 179 mg/dL Normal 150-200 [facility] Comment on above: Performed By: #### C BCA, 99062-4, 06145-5, CMP, 3084-1, HA1C, 13837-6, 21092-0, 5130-0, 63879-1, 46893-7, 09682-5 #### [facility] ([id number]) [address], [address] [place] [address] Cholesterol in HDL [Mass/Vol] 55 mg/dL Normal >39 [facility] Comment on above: Result Comment: HDL <40 mg/dL - High Risk HDL > or = 40mg/dL- Desirable HDL >60 mg/dL - Negative Risk Performed By: #### C BCA, 63135-4, 88038-3, CMP, 3084-1, HA1C, 17057-6, 94327-3, 5130-0, 73616-0, 01538-1, 47440-1 #### [facility] ([id number]) [address], [address] [place] [address] Cholesterol in LDL [Mass/Vol] 107 mg/dL Normal <130 [facility] Comment on above: Result Comment: LDL <100 mg/dL - Desirable LDL >160 mg/dL - High Risk Performed By: #### C BCA, 10746-8, 75854-6, CMP, 3084-1, HA1C, 07839-3, 16272-6, 5130-0, 24039-2, 78608-2, 45156-8 #### [facility] ([id number]) [address], [address] [place] [address] Cholesterol in VLDL [Mass/Vol] 17 mg/dL Normal 0-30 [facility] Comment on above: Performed By: #### C BCA, 18265-4, 21329-2, CMP, 3084-1, HA1C, 66296-1, 40978-7, 5130-0, 01815-9, 63517-5, 64500-4 #### [facility] ([id number]) [address] [place] [address], [facility] [address] [place] [address] CHOLESTEROL:HDL 3.3 Normal 1.0-5.0 [facility] Comment on above: Performed By: #### C BCA, 00469-2, 56069-1, CMP, 3084-1, HA1C, 35535-8, 80087-0, 5130-0, 58377-4, 02419-7, 19496-2 #### [facility] ([id number]) [address] [place] [address], [address] [address] Triglyceride [Mass/Vol] 87 mg/dL Normal 27-150 [facility] Comment on above: Performed By: #### C BCA, 40351-7, 06453-9, CMP, 3084-1, HA1C, 77679-6, 31850-2, 5130-0, 27265-0, 33581-5, 51555-8 #### [facility] ([id number]) [address] [place] [address], [address] [address] Prostate specific Ag [Mass/V ol]on 02-01-2024 PSA SCREEN 0.57 ng/mL Normal 0.00-4.00 [facility] Comment on above: Result Comment: The method used for this test is Eliud [place] DXI chemiluminescent immunoassay. Values obtained by different assay methods cannot be used interchangeably. Performed By: #### C BCA, 17356-3, 11902-1, CMP, 3084-1, HA1C, 17087-2, 97663-2, 5130-0, 88440-3, 96421-4, 94613-6 #### [facility] ([id number]) [address] [place] [address] CBC AND AUTO DIFFon 12-30-19 24 ABSOLUTE BASOPHIL 0.1 X10E9/L Normal 0.0-0.2 [facility] Comment on above: Performed By: #### C BCA, 20539-3, 85471-3, CMP, 3084-1, HA1C, 92189-2, 34467-4, 5130-0, 08642-0, 99651-8, 88458-4 #### [facility] ([id number]) [address] [place] [address] ABSOLUTE NEUTROPHIL 3.7 X10E9/L Normal 1.5-6.6 [facility] Comment on above: Performed By: #### C BCA, 46519-4, 86236-5, CMP, 3084-1, HA1C, 31289-4, 50833-2, 5130-0, 76638-4, 45063-3, 47916-7 #### [facility] ([id number]) [address] [place] [address] Basophils/100 WBC (Bld) 1.0 % Normal [facility] Comment on above: Performed By: #### C BCA, 14317-1, 13405-6, CMP, 3084-1, HA1C, 41480-3, 85841-3, 5130-0, 73439-7, 37763-1, 47877-3 #### [facility] ([id number]) [address] [place] [address] Eosinophils (Bld) [#/Vol] 0.1 10*3/uL Normal 0.0-0.4 [facility] Comment on above: Performed By: #### C BCA, 05741-1, 81364-4, CMP, 3084-1, HA1C, 54799-3, 73692-7, 5130-0, 93371-8, 54859-7, 75843-9 #### [facility] ([id number]) [address] [place] [address] Eosinophils/100 WBC (Bld) 2.3 % Normal [facility] Comment on above: Performed By: #### C BCA, 55909-1, 01816-1, CMP, 3084-1, HA1C, 27638-1, 82157-1, 5130-0, 36912-7, 42607-2, 61262-2 #### [facility] ([id number]) [address] [place] [address] Erythrocyte distribution width (RBC) [Ratio] 14.1 % Normal 11.5-15.0 [facility] Comment on above: Performed By: #### C GARRY, 94203-2, 33832-4, CMP, 3084-1, HA1C, 94228-6, 87815-3, 5130-0, 51552-3, 98141-4, 38150-5 #### [facility] ([id number]) [address] [place] [address] Hematocrit (Bld) [Volume fraction] 46.5 % Normal 39-49 [facility] Comment on above: Performed By: #### C GARRY, 76231-8, 50961-1, CMP, 3084-1, HA1C, 96917-4, 64235-6, 5130-0, 86039-1, 82758-2, 65749-4 #### [facility] ([id number]) [address] [place] [address] Hemoglobin (Bld) [Mass/Vol] 15.8 g/dL Normal 13.0-17.0 [facility] Comment on above: Performed By: #### C BCA, 23770-5, 02641-9, CMP, 3084-1, HA1C, 57140-3, 57559-9, 5130-0, 42193-6, 13360-0, 51258-8 #### [facility] ([id number]) [address] [place] [address] Lymphocytes (Bld) [#/Vol] 1.5 10*3/uL Normal 1.0-3.5 [facility] Comment on above: Performed By: #### C BCA, 17614-3, 81985-3, CMP, 3084-1, HA1C, 83874-8, 72691-7, 5130-0, 27260-9, 93365-8, 14694-3 #### [facility] ([id number]) [address], [address] [place] [address] Lymphocytes/100 WBC (Bld) 25.1 % Normal [facility] Comment on above: Performed By: #### C BCA, 67650-5, 37433-0, CMP, 3084-1, HA1C, 23159-8, 05391-6, 5130-0, 10084-0, 20831-5, 41007-5 #### [facility] ([id number]) [address], [address] [place] [address] MCH (RBC) [Entitic mass] 32.2 pg Normal 27-34 [facility] Comment on above: Performed By: #### C BCA, 88430-4, 05156-6, CMP, 3084-1, HA1C, 24864-5, 77897-9, 5130-0, 27649-5, 27409-0, 48598-5 #### [facility] ([id number]) [address], [address] [place] [address] MCHC (RBC) [Mass/Vol] 33.9 g/dL Normal 32-36 [facility] Comment on above: Performed By: #### C BCA, 46307-9, 97515-8, CMP, 3084-1, HA1C, 07780-3, 76779-2, 5130-0, 55821-3, 95043-2, 53977-8 #### [facility] ([id number]) [address], [address] [place] [address] MCV (RBC) [Entitic vol] 95 fL Normal 80-100 [facility] Comment on above: Performed By: #### C BCA, 12420-2, 29030-1, CMP, 3084-1, HA1C, 74650-4, 93548-9, 5130-0, 97204-8, 22593-1, 15301-5 #### [facility] ([id number]) [address], [address] [place] [address] Monocytes (Bld) [#/Vol] 0.4 10*3/uL Normal 0-0.9 [facility] Comment on above: Performed By: #### C BCA, 23229-8, 31782-2, CMP, 3084-1, HA1C, 42929-0, 72587-0, 5130-0, 62224-5, 40259-1, 84575-7 #### [facility] ([id number]) [address], [address] [place] [address] Monocytes/100 WBC (Bld) 7.6 % Normal [facility] Comment on above: Performed By: #### C BCA, 38754-4, 40451-8, CMP, 3084-1, HA1C, 30675-3, 10941-2, 5130-0, 58003-3, 54963-7, 70022-2 #### [facility] ([id number]) [address] [place] [address] Neutrophils/100 WBC (Bld) 64.0 % Normal [facility] Comment on above: Performed By: #### C BCA, 97276-8, 23052-1, CMP, 3084-1, HA1C, 64768-2, 01903-0, 5130-0, 98957-7, 57839-7, 61321-3 #### [facility] ([id number]) [address], [address] [place] [address] Platelet mean volume (Bld) [Entitic vol] 8.8 fL Normal 7-12 [facility] Comment on above: Performed By: #### C BCA, 07452-3, 36797-6, CMP, 3084-1, HA1C, 15997-2, 34505-6, 5130-0, 58733-6, 63086-6, 03352-8 #### [facility] ([id number]) [address] [place] [address], [address] [place] [address] Platelets (Bld) [#/Vol] 265 10*3/uL Normal 150-450 [facility] Comment on above: Performed By: #### C BCA, 06155-0, 96012-6, CMP, 3084-1, HA1C, 13725-9, 49530-6, 5130-0, 96483-5, 79513-3, 06222-5 #### [facility] ([id number]) [address] [place] [address], [facility] [address] [place] [address] RBC COUNT 4.90 X10E12/L Normal 4.10-5.70 [facility] Comment on above: Performed By: #### C BCA, 57100-4, 54846-2, CMP, 3084-1, HA1C, 77789-8, 38611-8, 5130-0, 85769-8, 22604-7, 03888-5 #### [facility] ([id number]) [address] [place] [address], [facility] [address] [place] [address] WBC (Bld) [#/Vol] 5.8 10*3/uL Normal 4.0-11.0 [facility] Comment on above: Performed By: #### C BCA, 21903-7, 59429-9, CMP, 3084-1, HA1C, 22033-0, 09479-0, 5130-0, 97784-5, 10434-0, 81583-0 #### [facility] ([id number]) [address] [place] [address], [facility] [address] [place] [address] CBC auto differentialon 05-2 Basophils (Bld) [#/Vol] 0.1 10*3/uL [facility] Basophils/100 WBC (Bld) 1.0 % [facility] Eosinophils (Bld) [#/Vol] 0.1 10*3/uL [facility] Eosinophils/100 WBC (Bld) 2.3 % [facility] Erythrocyte distribution width (RBC) [Ratio] 14.1 % 11.5 - 15.0 % [facility] Hematocrit (Bld) [Volume fraction] 46.5 % 39 - 49 % [facility] Hemoglobin (Bld) [Mass/Vol] 15.8 g/dL 13.0 - 17.0 g/dL [facility] Lymphocytes (Bld) [#/Vol] 1.5 10*3/uL [facility] Lymphocytes/100 WBC (Bld) 25.1 % [facility] MCH (RBC) [Entitic mass] 32.2 pg 27 - 34 pg [facility] MCHC (RBC) [Mass/Vol] 33.9 g/dL 32 - 3 6 g/dL [facility] MCV (RBC) [Entitic vol] 95 fL 80 - 100 fL [facility] Monocytes (Bld) [#/Vol] 0.4 10*3/uL [facility] Monocytes/100 WBC (Bld) 7.6 % [facility] Neutrophils (Bld) [#/Vol] 3.7 10*3/uL [facility] Neutrophils/100 WBC (Bld) 64.0 % [facility] Platelet mean volume (Bld) [Entitic vol] 8.8 fL 7 - 12 fL [facility] Platelets (Bld) [#/Vol] 265 10*3/uL [facility] RBC (Bld) [#/Vol] 4.90 10*6/uL [facility] WBC corrected for nucl RBC Auto (Bld) [#/Vol] 5.8 [facility] COMPREHENSIVE METABOLIC PANE Solomon 12-30-2023 Albumin [Mass/Vol] 4.3 g/dL Normal 3.2-5.3 [facility] Comment on above: Performed By: #### C BCA, 45660-0, 82256-0, CMP, 3084-1, HA1C, 45701-1, 58852-1, 5130-0, 90789-4, 21555-9, 75685-1 #### [facility] ([id number]) [address], [address] [place] [address] ALP [Catalytic activity/Vol] 73 U/L Normal 39-130 [facility] Comment on above: Performed By: #### C BCA, 50879-0, 24850-7, CMP, 3084-1, HA1C, 39541-8, 24333-1, 5130-0, 60661-4, 08592-7, 55350-2 #### [facility] ([id number]) [address], [address] [place] [address] ALT [Catalytic activity/Vol] 49 U/L High 0-40 [facility] Comment on above: Performed By: #### C BCA, 62630-5, 73325-0, CMP, 3084-1, HA1C, 47376-4, 21283-6, 5130-0, 20595-0, 18828-1, 03069-8 #### [facility] ([id number]) [address], [address] [place] [address] Anion gap [Moles/Vol] 11 mmol/L Normal 5-15 [facility] Comment on above: Performed By: #### C BCA, 93655-6, 06031-9, CMP, 3084-1, HA1C, 18961-5, 55284-6, 5130-0, 76888-5, 07432-0, 29910-7 #### [facility] ([id number]) [address], [address] [place] [address] AST [Catalytic activity/Vol] 38 U/L Normal 0-41 [facility] Comment on above: Performed By: #### C BCA, 41406-2, 48844-7, CMP, 3084-1, HA1C, 06343-0, 78463-1, 5130-0, 40012-7, 48333-7, 62659-1 #### [facility] ([id number]) [address], [address] [place] [address] Bilirubin [Mass/Vol] 0.7 mg/dL Normal 0.3-1.2 [facility] Comment on above: Performed By: #### C BCA, 11197-9, 55592-8, CMP, 3084-1, HA1C, 51876-3, 09936-7, 5130-0, 29326-2, 74139-6, 39282-5 #### [facility] ([id number]) [address], [address] [place] [address] Calcium [Mass/Vol] 9.2 mg/dL Normal 8.5-10.5 [facility] Comment on above: Performed By: #### C BCA, 43040-0, 03298-6, CMP, 3084-1, HA1C, 51179-5, 65484-4, 5130-0, 13230-1, 37936-0, 42508-8 #### [facility] ([id number]) [address], [address] [place] [address] Chloride [Moles/Vol] 102 mmol/L Normal 98-109 [facility] Comment on above: Performed By: #### C BCA, 02970-3, 20199-0, CMP, 3084-1, HA1C, 07095-2, 67087-1, 5130-0, 51602-5, 83670-9, 75060-9 #### [facility] ([id number]) [address] [place] [address] CO2 [Moles/Vol] 26 mmol/L Normal 22-32 [facility] Comment on above: Performed By: #### C BCA, 06727-5, 76848-6, CMP, 3084-1, HA1C, 18985-0, 78912-9, 5130-0, 34224-0, 49271-5, 40695-9 #### [facility] ([id number]) [address] [place] [address] Creatinine [Mass/Vol] 0.91 mg/dL Normal 0.60-1.30 [facility] Comment on above: Result Comment: METH OD TRACEABLE TO IDMS STANDARD Performed By: #### C BCA, 91568-5, 69119-7, CMP, 3084-1, HA1C, 21703-7, 45806-8, 5130-0, 48547-9, 08149-7, 03709-8 #### [facility] ([id number]) [address], [address] [address] eGFR (CKD-EPI) NON-RACE DEPENDENT >90 Normal >59 [facility] Comment on above: Result Comment: Reported eGFR is based on the CKD-EPI 2020 equation that does not use a race coefficient. Performed By: #### C BCA, 00329-6, 06107-2, CMP, 3084-1, HA1C, 32856-0, 10634-7, 5130-0, 93586-1, 98149-6, 76627-9 #### [facility] ([id number]) [address], [address] [address] Glucose [Mass/Vol] 93 mg/dL Normal 65-99 [facility] Comment on above: Performed By: #### C BCA, 43686-7, 24195-3, CMP, 3084-1, HA1C, 33650-4, 59130-1, 5130-0, 54586-8, 29112-7, 78707-7 #### [facility] ([id number]) [address], [facility] [address] [place] [address] Potassium [Moles/Vol] 4.0 mmol/L Normal 3.5-5.0 [facility] Comment on above: Performed By: #### C BCA, 96680-9, 76942-9, CMP, 3084-1, HA1C, 79010-2, 38165-2, 5130-0, 93076-5, 45157-4, 21330-4 #### [facility] ([id number]) [address], [address] [place] [address] Protein [Mass/Vol] 7.8 g/dL Normal 6.0-8.0 [facility] Comment on above: Performed By: #### C BCA, 15065-4, 11192-8, CMP, 3084-1, HA1C, 73266-1, 25660-8, 5130-0, 50825-5, 21079-8, 88366-4 #### [facility] ([id number]) [address], [address] [place] [address] Sodium [Moles/Vol] 139 mmol/L Normal 134-146 [facility] Comment on above: Performed By: #### C BCA, 19144-1, 10228-1, CMP, 3084-1, HA1C, 94139-5, 44279-2, 5130-0, 32857-7, 56286-4, 45786-8 #### [facility] ([id number]) [address] [place] [address] Urea nitrogen [Mass/Vol] 11 mg/dL Normal 5-23 [facility] Comment on above: Performed By: #### C BCA, 67525-7, 95956-2, CMP, 3084-1, HA1C, 45987-1, 73128-0, 5130-0, 77461-0, 26143-1, 82224-3 #### [facility] ([id number]) [address], [address] [place] [address] Chromatin Ab Qlon 12-30-2023 CHROMATIN AB IGG <0.2 Normal <1.0 [facility] Comment on above: Performed By: #### C BCA, 88287-5, 51592-8, CMP, 3084-1, HA1C, 38941-6, 67023-7, 5130-0, 13087-3, 61777-7, 02246-7 #### [facility] ([id number]) [address] [place] [address] Comprehensive metabolic pane solomon 12-30-2023 Albumin [Mass/Vol] 4.3 g/dL 3.2 - 5.3 g/dL [facility] ALP [Catalytic activity/Vol] 73 U/L 39 - 130 U/L [facility] ALT No additional P-5'-P [Catalytic activity/Vol] 49 U/L High 0 - 40 U/L [facility] Anion gap [Moles/Vol] 11 mmol/L 5 - 15 mmol/L [facility] AST [Catalytic activity/Vol] 38 U/L 0 - 41 U/L [facility] Bilirubin [Mass/Vol] 0.7 mg/dL 0.3 - 1 .2 mg/dL [facility] Calcium [Mass/Vol] 9.2 mg/dL 8.5 - 10. 5 mg/dL [facility] Chloride [Moles/Vol] 102 mmol/L 98 - 10 9 mmol/L [facility] CO2 [Moles/Vol] 26 mmol/L 22 - 32 mmol/L [facility] Creatinine [Mass/Vol] 0.91 mg/dL 0.60 - 1.30 mg/dL [facility] Comment on above: METHOD TRACEABLE TO [facility] STANDARD eGFR (CKD-EPI)non-race dependent - PINF [facility] Comment on above: Reported eGFR is based on the CKD-EPI 2020 equation that does not use a race coefficient. Glucose [Mass/Vol] 93 mg/dL 65 - 99 mg/dL [facility] Interpretation and review of laboratory results Abnormal [facility] Potassium [Moles/Vol] 4.0 mmol/L 3.5 - 5.0 mmol/L [facility] Protein [Mass/Vol] 7.8 g/dL 6.0 - 8.0 g/dL [facility] Sodium [Moles/Vol] 139 mmol/L 134 - 146 mmol/L [facility] Urea nitrogen [Mass/Vol] 11 mg/dL 5 - 23 mg/dL [facility] DNA double strand Ab Qn (S)o n 12-30-2023 DOUBLE STRANDED DNA 1 IU/ML Normal <[address] [facility] Comment on above: Result Comment: Interpretation-------- <5 Negative 5-9 Indeterminate >9 Positive Performed By: #### C BCA, 81640-4, 94677-3, CMP, 3084-1, HA1C, 23644-0, 32618-7, 5130-0, 60586-1, 16944-6, 29932-7 #### [facility] ([id number]) [address] [place] [address] ESR Photometric method (Bld) [Velocity]on 12-30-2023 Interpretation and review of laboratory results Abnormal [facility] ESR, ERYTHROCYTE SEDIMENTATION RATE 32 mm/h High 0-20 [facility] Comment on above: Performed By: #### C BCA, 75978-0, 92711-6, CMP, 3084-1, HA1C, 92418-3, 07834-0, 5130-0, 17513-9, 13567-6, 91812-9 #### [facility] ([id number]) [address] [id number] Erythrocyte Sedimentation Ra te (ESR)on 12-30-2023 ESR Photometric method (Bld) [Velocity] 32 mm/h High 0 - 20 mm/h [facility] HGB A1C (GLYCO-HGB)on 2023 Glucose [Mass/Vol] 114 mg/dL Normal [facility] Comment on above: Performed By: #### C BCA, 75437-7, 27572-3, CMP, 3084-1, HA1C, 86276-7, 21244-9, 5130-0, 59290-3, 45967-7, 25289-8 #### [facility] ([id number]) [address], [address] [place] [address] HbA1c (Bld) [Mass fraction] 5.6 % Normal 4.4-5.6 [facility] Comment on above: Result Comment: NOTE ADA Guidelines Result HgbA1c Normal : less than 5.7 % Prediabetes : 5.7 % to 6.4 % Diabetes : > 6.4 % Use with caution in patients with abnormal hemoglobin variants as the half-life of red blood cells and in vivo glycation rates are affected. Performed By: #### C BCA, 41777-2, 22647-0, CMP, 3084-1, HA1C, 26006-2, 92072-1, 5130-0, 17660-7, 64177-9, 70225-9 #### [facility] ([id number]) [address] [place] [address], [address] [address] No Panel Informationon 12-29 [facility] Nuclear Ab IA Ql (S)on 12-29 CATHY Screen w/reflex Positive Abnormal NEG [facility] Comment on above: Result Comment: Testing performed using multiplex flow immunoassay. Eleven different antigens associated with systemic autoimmune diseases (dsDNA,Sm,Sm/BARBED WIRE MACHINE OPERATOR,BARBED WIRE MACHINE OPERATOR,Chromatin, SSA,SSB,Claritza-1,Scl70,Ribo P,Centromere B) are included in this screening test. Performed By: #### C BCA, 92944-5, 15721-4, CMP, 3084-1, HA1C, 93432-1, 86555-8, 5130-0, 04083-0, 44101-7, 43651-0 #### [facility] ([id number]) [address] [place] [address], [address] [address] Rheumatoid factoron 12-30-19 Rheumatoid factor Nephelometry Qn (S) NINF [facility] Rheumatoid factor Nephelomet ry Qn (S)on 12-30-2023 [facility] RHEUMATOID FACTOR <10 Normal <20 [facility] Comment on above: Performed By: #### C BCA, 92647-8, 20427-1, CMP, 3084-1, HA1C, 20218-2, 96786-4, 5130-0, 05038-3, 66930-1, 30516-7 #### [facility] ([id number]) [address], [address] [place] [address] Ribonucleoprotein extractabl e nuclear IgG Qn (S)on 12-30-2023 BARBED WIRE MACHINE OPERATOR ANTIBODY IGG 1.8 AI High <1.0 [facility] Comment on above: Performed By: #### C BCA, 03142-3, 27139-7, CMP, 3084-1, HA1C, 27064-5, 81858-9, 5130-0, 68155-5, 20803-0, 02256-1 #### [facility] ([id number]) [address] [place] [address] Nunez extractable nuclear Ab +Ribonucleoprotein extractable nuclear IgG Qn (S)on 12-30-2023 NUNEZ/BARBED WIRE MACHINE OPERATOR AB IGG <0.2 Normal <1.0 [facility] Comment on above: Performed By: #### C BCA, 88543-6, 05645-9, CMP, 3084-1, HA1C, 66966-8, 53012-7, 5130-0, 48467-1, 38268-7, 70016-2 #### [facility] ([id number]) [address], [address] [place] [address] Nunez extractable nuclear Ig G Qn (S)on 12-30-2023 ANTI-NUNEZ AB IGG <0.2 Normal <1.0 [facility] Comment on above: Performed By: #### C BCA, 78100-6, 27020-9, CMP, 3084-1, HA1C, 88182-1, 76948-3, 5130-0, 21273-3, 19140-5, 61839-4 #### [facility] ([id number]) [address], [address] [place] [address] URIC ACIDon 12-30-2023 Urate [Mass/Vol] 6.8 mg/dL Normal 2.6-7.2 [facility] Comment on above: Performed By: #### C BCA, 38680-6, 73461-9, CMP, 3084-1, HA1C, 48119-2, 64363-2, 5130-0, 74823-6, 91600-6, 09041-9 #### [facility] ([id number]) [address], [address] [place] [address] Uric acidon 12-30-2023 Urate [Mass/Vol] 6.8 mg/dL 2.6 - 7.2 mg/dL [facility] Vital Signs Date Time Vital Sign Value Performing Clinician Faci lity 10-19-2024 10:53-0400 Body height 182.9 cm Rosa Isela Haskins MEDICAL LANGUAGE SPECIALIST-[employer]PECTOR [employer] Work Phone: [facility] 10-19-2024 10:53-0400 Body mass index (BMI) [Ratio] 47.14 kg/m2 Rosa Iselacarlie Loyaillo MEDICAL LANGUAGE SPECIALIST-INSPECTOR [employer] Work Phone: [facility] 10-19-2024 10:53-0400 Body temperature 98.49 [degF] Rosa Isela Loyaillo MEDICAL LANGUAGE SPECIALIST-INSPECTOR [employer] Work Phone: [facility] 10-19-2024 10:53-0400 Body weight 157.67 kg Rosa Isela Haskins MEDICAL LANGUAGE SPECIALIST-INSPECTOR [employer] Work Phone: [facility] 10-19-2024 10:53-0400 Diastolic blood pressure 70 mm[Hg] Rosa Isela Haskins MEDICAL LANGUAGE SPECIALIST-INSPECTOR [employer] Work Phone: [facility] 10-19-2024 10:53-0400 Heart rate 77 /min Rosa Isela Haskins MEDICAL LANGUAGE SPECIALIST-INSPECTOR [employer] Work Phone: [facility] 10-19-2024 10:53-0400 Respiratory rate 18 /min Rosa Isela Haskins MEDICAL LANGUAGE SPECIALIST-INSPECTOR [employer] Work Phone: [facility] 10-19-2024 10:53-0400 SaO2% (BldA) [Mass fraction] 98 % Rosa Isela Haskins APRN-INSPECTOR [employer] Work Phone: [facility] 10-19-2024 10:53-0400 Systolic blood pressure 100 mm[Hg] Rosa Isela Haskins APRN-INSPECTOR [employer] Work Phone: [facility] 07-20-2024 11:34-0500 Body height 182.9 cm Pa Mathews PA Work Phone: [facility] 07-20-2024 11:34-0500 Body mass index (BMI) [Ratio] 44.08 kg/m2 Pa Mathews PA Work Phone: [facility] 07-20-2024 11:34-0500 Body weight 147.42 kg Pa Mathews PA Work Phone: [facility] 07-06-2024 08:38-0500 Body mass index (BMI) [Ratio] 47.33 kg/m2 Lisbeth Grimes SUBSTATION MANAGER Work Phone: [facility] 07-06-2024 08:38-0500 Body weight 158.31 kg Lisbeth Grimes SUBSTATION MANAGER Work Phone: [facility] 07-06-2024 08:38-0500 Diastolic blood pressure 88 mm[Hg] Lisbeth Grimes SUBSTATION MANAGER Work Phone: [facility] 07-06-2024 08:38-0500 Heart rate 88 /min Lisbeth Grimes SUBSTATION MANAGER Work Phone: [facility] 07-06-2024 08:38-0500 SaO2% (BldA) [Mass fraction] 94 % Lisbeth Grimes SUBSTATION MANAGER Work Phone: [facility] 07-06-2024 08:38-0500 Systolic blood pressure 142 mm[Hg] Lisbeth Grimes SUBSTATION MANAGER Work Phone: [facility] 06-09-2024 10:50-0500 Body height 182.9 cm Christopher Hermelindo DO Work Phone: [facility] 06-09-2024 10:50-0500 Body mass index (BMI) [Ratio] 46.52 kg/m2 Christopher Hermelindo DO Work Phone: [facility] 06-09-2024 10:50-0500 Body weight 155.58 kg Memeopher Hermelindo DO Work Phone: [facility] 06-09-2024 10:50-0500 Diastolic blood pressure 83 mm[Hg] Memeopher Hermelindo DO Work Phone: [facility] 06-09-2024 10:50-0500 Heart rate 73 /min Christopher Hermelindo DO Work Phone: [facility] 06-09-2024 10:50-0500 SaO2% (BldA) [Mass fraction] 94 % Christpayaler Hermelindo DO Work Phone: [facility] 06-09-2024 10:50-0500 Systolic blood pressure 131 mm[Hg] Mauriceer Hermelindo DO Work Phone: [facility] 05-10-2024 12:53-0400 Body height 182.9 cm Rosa Isela Haskins MEDICAL LANGUAGE SPECIALIST-INSPECTOR [employer] Work Phone: [facility] 05-10-2024 12:53-0400 Body mass index (BMI) [Ratio] 45.79 kg/m2 Rosa Isela Haskins MEDICAL LANGUAGE SPECIALIST-INSPECTOR [employer] Work Phone: [facility] 05-10-2024 12:53-0400 Body temperature 98.71 [degF] Rosa Isela Haskins MEDICAL LANGUAGE SPECIALIST-INSPECTOR [employer] Work Phone: [facility] 05-10-2024 12:53-0400 Body weight 153.13 kg Rosa Isela Haskins MEDICAL LANGUAGE SPECIALIST-INSPECTOR [employer] Work Phone: [facility] 05-10-2024 12:53-0400 Diastolic blood pressure 60 mm[Hg] Rosa Iselarylie Haskins MEDICAL LANGUAGE SPECIALIST-INSPECTOR [employer] Work Phone: [facility] 05-10-2024 12:53-0400 Heart rate 74 /min Rosa Isela Haskins APRN-INSPECTOR [employer] Work Phone: [facility] 05-10-2024 12:53-0400 Respiratory rate 18 /min Rosa Isela Haskins MEDICAL LANGUAGE SPECIALIST-INSPECTOR [employer] Work Phone: [facility] 05-10-2024 12:53-0400 SaO2% (BldA) [Mass fraction] 96 % Rosa Isela Haskins APRN-INSPECTOR [employer] Work Phone: [facility] 05-10-2024 12:53-0400 Systolic blood pressure 124 mm[Hg] Rosa Isela Haskins MEDICAL LANGUAGE SPECIALIST-INSPECTOR [employer] Work Phone: [facility] 02-01-2024 16:06-0400 Body height 182.9 cm Rosa Isela Haskins APRN-INSPECTOR [employer] Work Phone: [facility] 02-01-2024 16:06-0400 Body mass index (BMI) [Ratio] 45.87 kg/m2 Rosa Isela Haskins APRN-INSPECTOR [employer] Work Phone: [facility] 02-01-2024 16:06-0400 Body temperature 98.2 [degF] Rosa Isela Haskins APRN-INSPECTOR [employer] Work Phone: [facility] 02-01-2024 16:06-0400 Body weight 153.41 kg Rosa Isela Haskins MEDICAL LANGUAGE SPECIALIST-INSPECTOR [employer] Work Phone: [facility] 02-01-2024 16:06-0400 Diastolic blood pressure 70 mm[Hg] Rosa Iselacarlie Haskins MEDICAL LANGUAGE SPECIALIST-INSPECTOR [employer] Work Phone: [facility] 02-01-2024 16:06-0400 Heart rate 72 /min Rosa Isela Haskins MEDICAL LANGUAGE SPECIALIST-INSPECTOR [employer] Work Phone: [facility] 02-01-2024 16:06-0400 Respiratory rate 18 /min Rosa Isela Haskins MEDICAL LANGUAGE SPECIALIST-INSPECTOR [employer] Work Phone: [facility] 02-01-2024 16:06-0400 SaO2% (BldA) [Mass fraction] 98 % Rosa Isela Haskins APRN-INSPECTOR [employer] Work Phone: [facility] 02-01-2024 16:06-0400 Systolic blood pressure 120 mm[Hg] Rosa Isela Haskins APRN-INSPECTOR [employer] Work Phone: [facility] 12-30-2023 13:57-0400 Body height 177.8 cm Rosa Isela Haskins APRN-INSPECTOR [employer] Work Phone: [facility] 12-30-2023 13:57-0400 Body mass index (BMI) [Ratio] 48.24 kg/m2 Rosa Isela Haskins APRN-INSPECTOR [employer] Work Phone: [facility] 12-30-2023 13:57-0400 Body weight 152.5 kg Rosa Isela Haskins APRN-INSPECTOR [employer] Work Phone: [facility] 12-30-2023 13:57-0400 Diastolic blood pressure 72 mm[Hg] oRsa Isela Haskins MEDICAL LANGUAGE SPECIALIST-INSPECTOR [employer] Work Phone: [facility] 12-30-2023 13:57-0400 Heart rate 83 /min Rosa Isela Haskins APRN-INSPECTOR [employer] Work Phone: [facility] 12-30-2023 13:57-0400 Respiratory rate 20 /min Rosa Isela Haskins APRN-INSPECTOR [employer] Work Phone: [facility] 12-30-2023 13:57-0400 SaO2% (BldA) [Mass fraction] 95 % Rosa Isela Haskins APRN-INSPECTOR [employer] Work Phone: [facility] 12-30-2023 13:57-0400 Systolic blood pressure 136 mm[Hg] Rosa Isela Haskins MEDICAL LANGUAGE SPECIALIST-INSPECTOR [employer] Work Phone: [facility] Encounters Encounter Date Encounter Type Care Provider Facility Start: 11-03-2024 End: 11-03-2024 ambulatory ROSA ISELA J [facility] Start: 10-19-2024 End: 10-19-2024 Office outpatient visit 15 minutes [facility] MEDICAL LANGUAGE SPECIALIST-INSPECTOR [employer] Work Phone: [facility] Comment on above: Enlarged lymph node in neck (Primary Dx); Ganglion cyst of tendon sheath of left hand Start: 10-19-2024 End: 10-19-2024 ambulatory [facility] Start: 10-04-2024 End: 10-04-2024 Bamboo flowsheet Lisbeth Grimes SUBSTATION MANAGER Work Phone: [facility] Start: 10-04-2024 End: 10-04-2024 Bamboo flowsheet Lisbeth Grimes SUBSTATION MANAGER Work Phone: [facility] Start: 10-04-2024 End: 10-04-2024 ambulatory LISBETH GRIMES Not Available Start: 09-23-2024 End: 09-23-2024 ambulatory LISBETH GRIMES [facility] Start: 08-18-2024 End: 08-18-2024 Bamboo flowsheet Ludy Crowley PT Work Phone: [facility] Start: 08-18-2024 End: 08-18-2024 Bamboo flowsheet Ludy Alvares Carline PT Work Phone: [facility] Start: 08-18-2024 End: 08-18-2024 ambulatory Ludy Crowley PT Work Phone: [facility] Comment on above: Neck pain (Primary D x); Chronic midline low back pain without sciatica; Multiple joint pain; Paresthesia Start: 08-16-2024 End: 08-16-2024 Bamboo flowsheet Nandini Tattersall COMMUNICATION LECTURER [facility] Start: 08-16-2024 End: 08-16-2024 Bamboo flowsheet Nandini Tattersall COMMUNICATION LECTURER [facility] Start: 08-16-2024 End: 08-16-2024 ambulatory Nandini Tattersall COMMUNICATION LECTURER [facility] Comment on above: Neck pain (Primary D x); Chronic midline low back pain without sciatica; Multiple joint pain; Paresthesia Start: 08-11-2024 End: 08-11-2024 ambulatory Danni Luna COMMUNICATION LECTURER Work Phone: [facility] Comment on above: Neck pain (Primary D x); Chronic midline low back pain without sciatica; Multiple joint pain; Paresthesia Start: 08-08-2024 End: 08-18-2024 Telephone encounter Lisbeth Delongoll SUBSTATION MANAGER Work Phone: [facility] Start: 08-02-2024 End: 08-02-2024 Bamboo flowsheet Ludy J Carline PT Work Phone: [facility] Start: 08-02-2024 End: 08-02-2024 Bamboo flowsheet Ludy J Carline PT Work Phone: [facility] Start: 08-02-2024 End: 08-02-2024 ambulatory Ludy J Carline PT Work Phone: [facility] Comment on above: Neck pain (Primary D x); Chronic midline low back pain without sciatica; Multiple joint pain; Paresthesia Start: 07-25-2024 End: 07-25-2024 Bamboo flowsheet Ludy J Carline PT Work Phone: [facility] Start: 07-25-2024 End: 07-25-2024 Bamboo flowsheet Ludy J Carline PT Work Phone: [facility] Start: 07-25-2024 End: 07-25-2024 ambulatory Ludy J Carline PT Work Phone: [facility] Comment on above: Neck pain (Primary D x); Chronic midline low back pain without sciatica Start: 07-21-2024 End: 07-21-2024 External Result Encounter Pa WINTER Work Phone: [facility] Unsolicited Start: 07-21-2024 End: 07-21-2024 External Result Encounter Pa WINTER Work Phone: [facility] Unsolicited Start: 07-21-2024 End: 07-21-2024 ambulatory Nandini Tattersall COMMUNICATION LECTURER [facility] Comment on above: Neck pain (Primary D x); Chronic midline low back pain without sciatica; Multiple joint pain; Paresthesia Start: 07-20-2024 End: 07-20-2024 Bamboo flowsheet Pa Mathews PA Work Phone: [facility] Start: 07-20-2024 End: 07-20-2024 Bamboo flowsheet Pa Mathews PA Work Phone: [facility] Start: 07-20-2024 End: 07-20-2024 Office outpatient new 45 minutes Pa Mathews PA Work Phone: [facility] Comment on above: Paresthesia of hand, bilateral (Primary Dx); Polyarthralgia; Neck pain Start: 07-20-2024 End: 07-20-2024 ambulatory PA MATHEWS Not Available Start: 07-14-2024 End: 07-14-2024 Telephone encounter Ludy Crowley PT Work Phone: [facility] Start: 07-12-2024 End: 07-12-2024 Bamboo flowsheet Nandini Tattersall COMMUNICATION LECTURER [facility] Start: 07-12-2024 End: 07-12-2024 Bamboo flowsheet Nandini Tattersall COMMUNICATION LECTURER [facility] Start: 07-12-2024 End: 07-12-2024 ambulatory Nandini Tattersall COMMUNICATION LECTURER [facility] Comment on above: Neck pain (Primary D x); Chronic midline low back pain without sciatica; Multiple joint pain; Paresthesia Start: 07-07-2024 End: 07-07-2024 Bamboo flowsheet Nandini Tattersall COMMUNICATION LECTURER [facility] Start: 07-07-2024 End: 07-07-2024 Bamboo flowsheet Nandini Tattersall COMMUNICATION LECTURER [facility] Start: 07-07-2024 End: 07-07-2024 ambulatory Nandini Tattersall COMMUNICATION LECTURER [facility] Comment on above: Neck pain (Primary D x); Chronic midline low back pain without sciatica; Multiple joint pain; Paresthesia Start: 07-06-2024 End: 07-06-2024 Office outpatient visit 25 minutes Lisbeth Grimes SUBSTATION MANAGER Work Phone: [facility] [employer] [facility] Comment on above: Neck pain (Primary D x); Paresthesias; Bilateral carpal tunnel syndrome; Ulnar neuropathy of both upper extremities Start: 07-06-2024 End: 07-06-2024 ambulatory LISBETH GRIMES Not Available Start: 07-05-2024 End: 07-05-2024 Bamboo flowsheet Memepayalsabas Hermelindo DO Work Phone: [facility] [employer] [facility] Start: 07-05-2024 End: 07-05-2024 Bamboo flowsheet Aniceto Hermelindo DO Work Phone: [facility] [employer] [facility] Start: 07-05-2024 End: 07-05-2024 Patient encounter procedure Aniceto Casarez DO Work Phone: [facility] [employer] [facility] Comment on above: Ulnar neuropathy of both upper extremities (Primary Dx) Start: 07-05-2024 End: 07-05-2024 ambulatory MEMEINGE CASAREZ Not Available Start: 06-23-2024 End: 06-23-2024 Bamboo flowsheet Nandini Tattersall COMMUNICATION LECTURER [facility] Start: 06-23-2024 End: 06-23-2024 Bamboo flowsheet Nandini Tattersall COMMUNICATION LECTURER [facility] Start: 06-23-2024 End: 06-23-2024 ambulatory Nandini Tattersall COMMUNICATION LECTURER [facility] Comment on above: Neck pain (Primary D x); Chronic midline low back pain without sciatica; Multiple joint pain; Paresthesia Start: 06-20-2024 End: 06-20-2024 Bamboo flowsheet Ludy J Carline PT Work Phone: [facility] Start: 06-20-2024 End: 06-20-2024 Bamboo flowsheet Ludy J Carline PT Work Phone: [facility] Start: 06-20-2024 End: 06-20-2024 ambulatory Ludy J Carline PT Work Phone: [facility] Comment on above: Neck pain (Primary D x); Chronic midline low back pain without sciatica; Multiple joint pain; Paresthesia Start: 06-09-2024 End: 06-09-2024 Bamboo flowsheet Christopher [facility]indo [facility] Start: 06-09-2024 End: 06-09-2024 Bamboo flowsheet Christopher Hermelindo DO Work Phone: [facility] Start: 06-09-2024 End: 06-09-2024 Office outpatient new 45 minutes Christopher Hermelindo DO Work Phone: [facility] Comment on above: Paresthesia (Primary Dx) Start: 06-09-2024 End: 06-09-2024 ambulatory ANICETO CASAREZ Not Available Start: 05-10-2024 End: 05-10-2024 Office outpatient visit 15 minutes Rosa Isela Haskins MEDICAL LANGUAGE SPECIALIST-INSPECTOR [employer] Work Phone: [facility] Comment on above: Chronic pain syndrom e (Primary Dx); Pain in joints Start: 05-10-2024 End: 05-10-2024 ambulatory [facility] Start: 03-17-2024 End: 03-17-2024 Patient encounter procedure MD Pa San Work Phone: [facility] [address] Work Phone: Start: 03-17-2024 End: 03-17-2024 ambulatory Pa San [facility] Work Phone: Start: 02-01-2024 End: 02-01-2024 ambulatory [facility] Start: 02-01-2024 Encounter for genera l adult medical examination without abnormal findings [facility] Start: 02-01-2024 End: 02-01-2024 Patient encounter procedure [facility] MEDICAL LANGUAGE SPECIALIST-INSPECTOR [employer] Work Phone: [facility] Work Phone: Start: 02-01-2024 End: 02-01-2024 Periodic preventive med est patient 40-64yrs Rosa Isela Haskins MEDICAL LANGUAGE SPECIALIST-INSPECTOR [employer] Work Phone: [facility] Comment on above: Annual physical exam (Primary Dx); Blood tests for routine general physical examination; Encounter for screening for malignant neoplasm of prostate; Special screening for malignant neoplasm of colon Start: 02-01-2024 End: 02-01-2024 Physical examination Rosa Isela Haskins MEDICAL LANGUAGE SPECIALIST-[employer]PECTOR [employer] Work Phone: [facility] Start: 02-01-2024 End: 02-01-2024 ambulatory [facility] Start: 02-01-2024 Encounter for genera l adult medical examination without abnormal findings [facility] Start: 12-30-2023 End: 12-30-2023 ambulatory [facility] Start: 12-30-2023 End: 12-30-2023 Office outpatient new 45 minutes Rosa Iselarylie Haskins MEDICAL LANGUAGE SPECIALIST-[facility] Work Phone: [facility] Comment on above: Positive CATHY (antinu clear antibody) (Primary Dx); Pain in other joint; Joint swelling; Screening for diabetes mellitus (DM) Start: 12-30-2023 End: 12-30-2023 ambulatory [facility] Procedures Date Procedure Procedure Detail Performing Clinician Start: 10-19-2024 Adult depression scr eening assessment Rosa Isela [facility] MEDICAL LANGUAGE SPECIALIST-[facility] Work Phone: Start: 07-21-2024 Sedimentation rate r bc automated Pa WINTER Work Phone: Start: 07-05-2024 End: 07-05-2024 Needle emg ea extremty w/paraspinl area complete Aniceto Casarez DO Work Phone: Start: 05-10-2024 Adult depression scr eening assessment [facility] MEDICAL LANGUAGE [facility] Work Phone: Start: 02-01-2024 Adult depression scr eening assessment Rosa Isela Haskins MEDICAL LANGUAGE SPECIALIST-INSPECTOR [employer] Work Phone: Start: 12-30-2023 Adult depression scr eening assessment Rosa Isela Haskins MEDICAL LANGUAGE SPECIALIST-INSPECTOR [employer] Work Phone: Plan of Treatment Date Care Activity Detail Author Start: 10-19-2025 Adult BMI Screening Adult BMI Screen ing [facility] Start: 10-19-2025 Depression Screening Depression Scre ening [facility] Start: 10-19-2025 Tobacco Screening Tobacco Screening [facility] Start: 05-10-2025 Adult BMI Follow Up Plan Adult BMI Follow Up Plan [facility] Start: 05-10-2025 Adult BMI Screening Adult BMI Screen ing [facility] Start: 05-10-2025 Depression Screening Depression Scre ening [facility] Start: 05-10-2025 Tobacco Screening Tobacco Screening [facility] Start: 01-31-2025 Adult BMI Follow Up Plan Adult BMI Follow Up Plan [facility] Start: 01-31-2025 Adult BMI Screening Adult BMI Screen ing [facility] Start: 01-31-2025 Depression Screening Depression Scre ening [facility] Start: 01-31-2025 Tobacco Screening Tobacco Screening [facility] Start: 12-29-2024 Adult BMI Follow Up Plan Adult BMI Follow Up Plan [facility] Start: 12-29-2024 Adult BMI Screening Adult BMI Screen ing [facility] Start: 12-29-2024 Depression Screening Depression Scre ening [facility] Start: 12-29-2024 Tobacco Screening Tobacco Screening [facility] Start: 11-03-2024 End: 11-03-2024 Patient encounter procedure 11/03/2024 9:45 AM EDT Appointment [facility] [address] [place] [phone] [facility] Start: 10-19-2024 End: 10-19-2025 CT Neck WO contrast CT neck soft tissue without contrast Imaging Routine Enlarged lymph node in neck Expected: 10/19/2024, Expires: 10/19/2025 [facility] Work Phone: Comment on above: Expected: 10/19/2024 , Expires: 10/19/2025 Start: 10-04-2024 End: 10-04-2024 Patient encounter procedure 10/04/2024 1:40 PM EST Office Visit [facility] [place] [address] [facility] [place] [phone] Lisbeth Grimes NP [address] [place] [address] Arrived CATHY [place] Comment on above: Arrived Start: 09-13-2024 End: 09-13-2024 Patient encounter procedure 09/13/2024 11:20 AM EST Office Visit [facility] [address] [place] [phone] Rosa Isela Haskins, MEDICAL LANGUAGE SPECIALIST-INSPECTOR [employer] [address] [place] [phone] [facility] Start: 09-06-2024 End: 09-06-2024 Patient encounter procedure 09/06/2024 8:20 AM EST Office Visit CATHY [place] [address] [facility] [place] [phone] Lisbeth Grimes NP [address] [facility] [place] [address] CATHY [place] Start: 08-18-2024 End: 08-18-2024 ambulatory 08/18/2024 10:00 AM EST Treatment [facility] [address] [place] [phone] Ludy Crowley, PT [address] [place], [place] [id number] [facility] Start: 08-16-2024 End: 08-16-2024 ambulatory [facility] Comment on above: Arrived Start: 08-11-2024 End: 08-11-2024 ambulatory 08/11/2024 10:00 AM EST Treatment [facility] [address] [place] [phone] Danni Luna, COMMUNICATION LECTURER [address] [place] [address] [facility] Start: 08-10-2024 End: 08-10-2024 Patient encounter procedure 08/10/2024 11:00 AM EST Office Visit [facility] [address] [place] [address] Pa Mathews, PA [address] [place] [address] [place] [address] [facility] Start: 08-09-2024 End: 08-09-2024 Patient encounter procedure 08/09/2024 9:40 AM EST Office Visit [facility] [place] [address] Kane Lisbeth, SUBSTATION MANAGER [address] [place] [phone] [facility] [place] [facility] Start: 08-08-2024 End: 08-08-2024 ambulatory 08/08/2024 9:00 AM EST Treatment [facility] [address] [place] [phone] Danni Luna, COMMUNICATION LECTURER [address] [place] [address] [facility] Start: 08-05-2024 End: 08-05-2024 ambulatory 08/05/2024 8:30 AM EST Treatment [facility] [address] [place] [phone] Ludy Crowley, PT [address] [place] [address] [facility] Start: 08-02-2024 End: 08-02-2024 ambulatory 08/02/2024 8:30 AM EST Treatment [facility] [address] [place] [phone] Ludy Crowley, PT [address] [place] [address] Arrived [facility] Comment on above: Arrived Start: 07-28-2024 End: 07-28-2024 ambulatory [facility] Start: 07-25-2024 End: 07-25-2024 ambulatory [facility] Comment on above: Arrived Start: 07-21-2024 End: 07-21-2024 ambulatory 07/21/2024 9:30 AM EST Treatment [facility] [address] [place] [phone] Nandini Cox, GILBERTO [facility] Start: 07-20-2024 End: 07-20-2025 C reactive protein [Mass/volume] in Serum or Plasma C-reactive protein Lab Routine Polyarthralgia Expected: 07/20/2024 (Approximate), Expires: 07/20/2025 [facility] Comment on above: Expected: 07/20/2024 (Approximate), Expires: 07/20/2025 Start: 07-20-2024 End: 07-20-2025 Erythrocyte sedimentation rate Sedimentation rate, automated Lab Routine Polyarthralgia Expected: 07/20/2024 (Approximate), Expires: 07/20/2025 [facility] Comment on above: Expected: 07/20/2024 (Approximate), Expires: 07/20/2025 Start: 07-20-2024 End: 07-20-2025 LYME DISEASE ANTIBODY (IGG), IMMUNOBLOT LYME DISEASE ANTIBODY (IGG), IMMUNOBLOT Lab Routine Polyarthralgia Expected: 07/20/2024 (Approximate), Expires: 07/20/2025 [facility] Comment on above: Expected: 07/20/2024 (Approximate), Expires: 07/20/2025 Start: 07-20-2024 End: 07-20-2025 Myoglobin, serum Myoglobin, serum Lab Routine Polyarthralgia Expected: 07/20/2024 (Approximate), Expires: 07/20/2025 [facility] Work Phone: Comment on above: Expected: 07/20/2024 (Approximate), Expires: 07/20/2025 Start: 07-20-2024 End: 07-20-2024 Patient encounter procedure [facility] Comment on above: Paresthesia of hand, bilateral (Primary Dx); Ulnar neuropathy of both upper extremities Start: 07-19-2024 End: 07-19-2024 ambulatory 07/19/2024 10:00 AM EST Treatment [facility] [address] [place] [phone] Ludy Crowley, PT [address] [place] [address] [facility] Start: 07-14-2024 End: 07-14-2024 ambulatory 07/14/2024 9:30 AM EST Treatment [facility] [address] [place] [address] Nandini Cox, GILBERTO [facility] Start: 07-12-2024 End: 07-12-2024 ambulatory [facility] Comment on above: Neck pain (Primary D x); Chronic midline low back pain without sciatica; Multiple joint pain; Paresthesia Start: 07-07-2024 End: 07-07-2024 ambulatory [facility] Comment on above: Arrived Start: 07-06-2024 End: 07-06-2025 MR Cervical spine WO contrast MR cervical spine wo contrast Imaging Routine Neck pain Paresthesias Expected: 07/06/2024 (Approximate), Expires: 07/06/2025 [facility] Work Phone: Comment on above: Expected: 07/06/2024 (Approximate), Expires: 07/06/2025 Start: 07-06-2024 End: 07-06-2024 Patient encounter procedure 07/06/2024 8:40 AM EST Office Visit [facility] [address] [place] [phone] Lisbeth Grimes NP [address] [place] [phone] [facility] [place] [facility] Start: 07-05-2024 End: 07-05-[address] [facility] Comment on above: Arrived Start: 07-04-2024 End: 07-04-2024 ambulatory 07/04/2024 9:00 AM EST Treatment [facility] [address] [place] [phone] Danni Luna, COMMUNICATION LECTURER [address] [place] [address] [facility] Start: 06-28-2024 End: 06-28-2024 ambulatory 06/28/2024 10:30 AM EST Treatment [facility] [address] [place] [phone] Danni Luna, COMMUNICATION LECTURER [address] [place] [address] [facility] Start: 06-23-2024 End: 06-23-2024 ambulatory 06/23/2024 8:30 AM EST Treatment [facility] [address] [place] [phone] Nandini Cox, COMMUNICATION LECTURER Neck pain (Primary Dx); Chronic midline low back pain without sciatica; Multiple joint pain; Paresthesia [facility] Comment on above: Neck pain (Primary D x); Chronic midline low back pain without sciatica; Multiple joint pain; Paresthesia Start: 06-16-2024 End: 06-16-2024 Patient encounter procedure 06/16/2024 11:00 AM EST Procedure Visit [facility] [address] [place] [phone] Aniceto Casarez DO [address] [place] [address] [facility] Start: 06-09-2024 End: 06-09-2025 EMG 2 Extremities EMG 2 Extremities Neurology Routine Paresthesia Expected: 06/09/2024, Expires: 06/09/2025 [facility] Work Phone: Comment on above: Expected: 06/09/2024 , Expires: 06/09/2025 Start: 06-09-2024 End: 06-09-2024 Patient encounter procedure 06/09/2024 11:00 AM EST Office Visit [facility] [address] [place] [phone] Aniceto Casarez DO [address] [place] [address] Arrived [facility] Comment on above: Arrived Start: 04-03-2024 Influenza vaccination Influenza Vacc ine [facility] Start: 03-17-2024 Hemolytic complement CH50 level [facility] Start: 03-17-2024 Hepatitis B core antibody measurement [facility] Start: 03-17-2024 [facility] Start: 02-01-2024 End: 02-01-2024 Patient encounter procedure 02/01/2024 4:00 PM EDT [facility] [address] [place] [address] Rosa Isela Haskins, MEDICAL LANGUAGE SPECIALIST-INSPECTOR [employer] [address] [place] [address] [facility] Start: 2016 Administration of varicella zoster vaccine Zoster (Shingles) Vaccine (1 of 2) [facility] Start: 2011 Screening for malign ant neoplasm of colon Colonoscopy [facility] Start: 1985 DTaP,Tdap and Td Vaccines (1 - Tdap) DTaP,Tdap and Td Vaccines (1 - Tdap) [facility] Start: 1966 Tobacco Counseling Tobacco Counselin g [facility] Aldolase measurement [facility] End: 12-29-2024 CATHY Screen w/ Reflex CATHY Screen w/ Reflex Lab Routine Positive CATHY (antinuclear antibody) Pain in other joint 1 Occurrences starting 12/30/2023 until 12/29/2024 [facility] Work Phone: Comment on above: 1 Occurrences starti ng 12/30/2023 until 12/29/2024 Chromatin Ab [Units/volume] in Serum or Plasma [facility] Cologuard [facility] Cologuar d [facility] Lab Routine Special screening for malignant neoplasm of colon Or[facility]: [facility]01/2024 [facility] above: Ordered: 02/01/2024 Complement C3 [Mass/volume] in Serum or Plasma [facility] Complement C4 [Mass/volume] in Serum or Plasma [facility] End: 12-30-2024 Hemoglobin A1c/Hemoglobin.total in Blood Hemoglobin A1c Lab Routine Screening for diabetes mellitus (DM) 1 Occurrences starting 12/30/2023 until 12/30/2024 [facility] Comment on above: 1 Occurrences starti ng 12/30/2023 until 12/30/2024 Hemoglobin A1c/Hemoglobin.total in Blood Hemoglobin A1c Lab Routine Screening for diabetes mellitus (DM) 12/30/2023 10:10 PM EDT [facility] Hepatitis B virus surface Ab [Presence] in Serum [facility] Hepatitis B virus surface Ag [Presence] in Serum or Plasma by Immunoassay [facility] Hepatitis C virus Ig G Ab [Presence] in Serum or Plasma by Immunoassay [facility] Homogenous nuclear A b pattern [Titer] in Serum [facility] End: 01-31-2025 Lipid panel Lipid panel Lab Routine Blood tests for routine general physical examination 1 Occurrences starting 02/01/2024 until 01/31/2025 [facility] Work Phone: Comment on above: 1 Occurrences starti ng 02/01/2024 until 01/31/2025 Lupus anticoagulant [Interpretation] in Platelet poor plasma [facility] Nuclear Ab [Presence ] in Serum by Immunoassay CATHY Screen w/ Reflex Lab Routine Positive CATHY (antinuclear antibody) Pain in other joint 12/30/2023 10:10 PM EDT [email or web address] Nuclear Ab [Titer] i n Serum [facility] End: 01-31-2025 Prostatic specific antigen screen Prostatic specific antigen screen Lab Routine Encounter for screening for malignant neoplasm of prostate 1 Occurrences starting 02/01/2024 until 01/31/2025 [facility] Comment on above: 1 Occurrences starti ng 02/01/2024 until 01/31/2025 Reagin Ab [Presence] in Serum by RPR [facility] Thrombin time [facility] Thyroglobulin Ab [Units/volume] in Serum or Plasma [facility] Thyroperoxidase Ab [Units/volume] in Serum or Plasma [facility] Payers Date Payer Category Payer Self-pay 2024 Unknown [id number] 2023 Medicaid [employer] [id number] 2023 Medicaid [id number] 2023 Private Health Insurance [facility] MEDICAID [id number] 2023 Medicaid [id number] 1966 Unknown [id number] 2.16.840.1.280015.3.579.2. 1286 1966 Unknown [id number] 2.16.840.1.887113.3.579.2. 6 1966 Unknown [id number] 2.16.840.1.684221.3.579.2. 1258 1966 Unknown [id number] 2.16.840.1.759661.3.579.2. 1258 1966 Unknown [id number] 2.16.840.1.434524.3.579.2. 1258 1966 Unknown [id number] 2.16.840.1.334188.3.579.2. 1258 1966 Unknown [id number] 2.16.840.1.863392.3.579.2. 1258 1966 Unknown [id number] 2.16.840.1.862647.3.579.2. 1258 1966 Unknown [id number] 2.16.840.1.661738.3.579.2. 1258 1966 Unknown [id number] 2.16.840.1.422640.3.579.2. 1258 1966 Unknown [id number] 2.16.840.1.793670.3.579.2. 1258 1966 Unknown [id number] 2.16.840.1.011906.3.579.2. 1258 1966 Unknown [id number] 2.16.840.1.053286.3.579.2. 1258 1966 Unknown [id number] 2.16.840.1.012633.3.579.2. 1258 1966 Unknown [id number] 2.16.840.1.426677.3.579.2. 1258 1966 Unknown [id number] 2.16.840.1.831011.3.579.2. 1258 1966 Unknown [id number] 2.16.840.1.497858.3.579.2. 1259 1966 Unknown [id number] 2.16.840.1.819377.3.579.2. 1286 1966 Unknown [id number] 2.16.840.1.479838.3.579.2. 1286 1966 Unknown [id number] 2.16.840.1.763958.3.579.2. 1286 1966 Unknown [id number] 2.16.840.1.253052.3.579.2. 1286 1966 Unknown [id number] 2.16.840.1.611210.3.579.2. 1286 1966 Unknown [id number] 2.16.840.1.181607.3.579.2. 1286 1966 Unknown [id number] 2.16.840.1.106566.3.579.2. 1286 1966 Unknown [id number] 2.16.840.1.975155.3.579.2. 1286 Unknown [id number] 2.16.840.1.504718.3.579.2. 531 Social History Date Type Detail Facility Tobacco smoking stat [facility] Unknown if ever smoked [facility] Work Phone: Start: 1965 Sex Assigned At Male F [facility] consumption [facility] Start: 1966 Sex assigned at Not on file [facility] Start: 07-06-2024 End: 10-19-2024 Gender identity Not on file [facility] Start: 07-06-2024 Tobacco [facility] History of tobacco use Cigarette Smoker [facility] Start: 07-06-2024 End: 10-19-2024 Cigarettes smoked current (pack per day) - Reported 1 [facility] Start: 12-30-2023 End: 07-06-2024 Tobacco use and exposure User of smokeless tobacco [facility] History of tobacco use Snuff User [facility] Start: 07-06-2024 End: 10-19-2024 Alcoholic beverage intake Current drinker of alcohol (finding) [facility] Start: 12-30-2023 End: 07-19-2024 Tobacco smoking status NHIS Ex-smoker [facility] History of tobacco use [facility] of tobacco use [facility] Adolescent depressio n screening assessment [address] [facility] Start: 12-30-2023 Alcohol Comment weekly [facility] Start: 03-08-2015 Sex Male (finding) [facility] Clinical Notes 12-30-2023 to 10-19-2024 Rosa Isela Haskins, MEDICAL LANGUAGE SPECIALIST-INSPECTOR [employer] - 10/19/2024 11:00 AM Micah Crowley, PT - 08/18/2024 10:00 AM ESTTelephone Encounter - Lisbeth Grimes, SUBSTATION MANAGER - 08/15/2024 3:47 PM ESTPatient Instructions Note Date & Type Note Facility 10-19-2024 History of Presen t illness Narrative Images from the original note were not included. [address] [facility] [address] SUBJECTIVE: Patient ID: Jennifer Dumas is a 59 y.o. male. Chief Complaint Patient presents with lump on hand / go over results Patient presents today for follow up He recently had MRI of neck due to pain. Incidental finding of mildly enlarged right level 2/3 lymph node. Radiologist recommended follow up with CT soft tissue of neck. He is concerned about a soft lump of left palm of his hand. States is non-tender and does not interfere with activities of daily living The following portions of the patient's history were reviewed and updated as appropriate: allergies, current medications, past family history, past medical history, past social history, past surgical history and problem list. History reviewed. No pertinent surgical history. Past Medical History: Diagnosis Date Back pain Hypertension Lupus Visual impairment There is no immunization history on file for this patient. REVIEW OF SYSTEMS: Review of Systems Constitutional: Negative for chills, fatigue and fever. HENT: Negative for hearing loss and trouble swallowing. Eyes: Negative for pain and visual disturbance. Respiratory: Negative for cough, chest tightness and shortness of breath. Cardiovascular: Negative for chest pain, palpitations and leg swelling. Gastrointestinal: Negative for blood in stool. Endocrine: Negative for polydipsia, polyphagia and polyuria. Genitourinary: Negative for difficulty urinating, dysuria, flank pain, hematuria, scrotal swelling and testicular pain. Musculoskeletal: Negative. Skin: Negative. Allergic/Immunologic: Negative. Neurological: Negative for seizures, syncope and headaches. Hematological: Does not bruise/bleed easily. Psychiatric/Behavioral: Negative. PHYSICAL EXAMINATION: Vitals: 10/19/24 1053 BP: 100/70 BP Site: Left Arm BP Postition: Sitting Pulse: 77 Resp: 18 Temp: 36.9 C (98.5 F) TempSrc: Tympanic SpO2: 98% Weight: (!) 157.7 kg (347 lb 9.6 oz) Height: 182.9 cm (6') Patient noted to have elevated BMI and the following intervention(s) were applied: encouragement to exercise. Physical Exam Vitals and nursing note reviewed. Constitutional: General: He is not in acute distress. Appearance: He is well-developed. HENT: Head: Normocephalic and atraumatic. Right Ear: Tympanic membrane and external ear normal. Left Ear: Tympanic membrane and external ear normal. Nose: Nose normal. Mouth/Throat: Mouth: Mucous membranes are moist. Pharynx: No oropharyngeal exudate. Eyes: General: No scleral icterus. Right eye: No discharge. Left eye: No discharge. Conjunctiva/sclera: Conjunctivae normal. Pupils: Pupils are equal, round, and reactive to light. Neck: Vascular: No JVD. Cardiovascular: Rate and Rhythm: Normal rate and regular rhythm. Heart sounds: Normal heart sounds. No murmur heard. No friction rub. No gallop. Pulmonary: Effort: Pulmonary effort is normal. No respiratory distress. Breath sounds: Normal breath sounds. Chest: Chest wall: No tenderness. Abdominal: General: Bowel sounds are normal. There is no distension. Palpations: Abdomen is soft. There is no mass. Tenderness: There is no abdominal tenderness. There is no guarding or rebound. Hernia: No hernia is present. Musculoskeletal: General: No tenderness. Normal range of motion. Cervical back: Normal range of motion and neck supple. Comments: Left palm ganglion cyst Lymphadenopathy: Cervical: No cervical adenopathy. Skin: General: Skin is warm and dry. Capillary Refill: Capillary refill takes less than 2 seconds. Findings: No rash. Neurological: Mental Status: He is alert and oriented to person, place, and time. Deep Tendon Reflexes: Reflexes are normal and symmetric. Psychiatric: Mood and Affect: Mood normal. Behavior: Behavior normal. Thought Content: Thought content normal. Judgment: Judgment normal. ASSESSMENT/PLAN: Jennifer was seen today for lump on hand / go over results. Diagnoses and all orders for this visit: Enlarged lymph node in neck - CT neck soft tissue without contrast; Future Ganglion cyst of tendon sheath of left hand New orders for soft tissue of neck. Incidental finding of mildly enlarged right level 2/3 lymph node. Area is non tender. Ganglion cyst of palm of left hand. States is non-tender and does not interfere with activities of daily living I did discuss hand orthopedic referral. He does not think is necessary at this time. Body mass index is 47.14 kg/m . Patient noted to have elevated BMI and the following intervention(s) were applied: Discussed current weight today. Consider healthy food choices, portion control. Avoid sugary beverages and high concentrated sweets. Routine exercise regimen encouraged. ALL QUESTIONS ANSWERED Total time spent was 25 minutes: Preparing to see the patient (e.g., review of tests) Obtaining and/or reviewing separately obtained history Performing a medically appropriate examination and/or evaluation Counseling and educating the patient/family/caregiver Ordering medications, tests, or procedures Follow-up: Next scheduled ANDRESSA Guzman 10/19/24 1251 documented in this [facility] History of Presen t illness Narrative Images from the original note were not included. Physical Therapy Physical Therapy Treatment Visit Patient Name: Jennifer Dumas Today's Date: 08/18/2024 Encounter Diagnoses Name Primary? Neck pain Yes Chronic midline low back pain without sciatica Multiple joint pain Paresthesia Visit number: 3 (7 total in 2023) (10 visits total) Time In: 9:50 am Time Out: 10:35 am Supervised Time: 40 min Total Time: 45 min Subjective Jennifer Dumas 59 y.o. male presents to physical therapy w/ chief c/o pain and decreased activity tolerance. Pt c/o multiple varying areas of pain including but not limited to neck, back, hips primarily. Mechanism of Onset: ~5 year worsening hx. Current deficits: pain, decreased ROM/flexibility, impaired gait, decreased tolerance to ADL/self care Pain: at least 6/10 neck and LBP upon arrival, worst pain in mornings when first getting up. Whole back and neck and kimberly hand s/s as well. Ortho ordered blood testing for potential Lyme disease, negative. MRI denied for upper back/neck advised to continue PT. Aggravating Factors: ADLs/self care, bending, lifting, turning head, twisting back, looking up, looking down, prolonged sitting, standing, walking, driving Relieving factors: nil Imaging: Scheduled to have EMG next month. No other imaging in EMR system Occupation: not working Precautions: pt reports hx of kimberly shoulder dislocations Objective Gait: decreased ang, trunk and arm swing kimberly Posture: mod FW head, increased thoracic kyphosis and reduced lumbar lordosis Mod decreased HS flexibility kimberly. Core/hip strength grossly 4/5 MMT Lumbar mobility: mod loss all planes ERP with Ext, pulling flex and kimberly rotation. Neg spurlings kimberly, neg dural slump and SLR other than HS tightness Neck AROM: flex= min loss, ext= mod loss, kimberly rot= 40 degrees, kimberly side bend= mod loss pulling kimberly. Mod decreased flexibility kimberly Upper traps, min decreased kimberly levator scap. Min loss AROM overhead flex/scap kimberly shoulders. Back index= 50% impaired at IE Neck index= 38% impaired at IE Treatment Interventions Education: HEP education with demonstration Manual Therapy: x10 STM/IASTM to B UT and neck, trial suboccipital release and manual cervical traction fair results, great difficulty relaxing, no noted improvement is s/s. Therapeutic Exercise: x 30 min per LUISA grid, ROM, flexibility, strength demo and verbal cues for correct technique including upright posture, TA activation and keeping stretches gentle. Modalities:x declined heat vs cold end of session. Assessment/Plan Pt c/o multiple varying areas of pain including but not limited to neck, back, hips primarily causing increased difficulty with ADLs/self care, decreased QOL, also c/o n/t intermittent kimberly Ue's most noted in hands. Pt tolerates cervical and lumbar LUISA fairly well despite global pain, some exacerbation no real change for the better. Noted Increased kimberly thumb/hand pain noted especially with doorway stretch and using Ue's with Tbands. No real change in s/s neck, back or kimberly Ue's with formal PT to date over 10 visits. Pt to be placed on hold with probable MRI in future. Start of care/initial eval for PT was on 06/20/24 so 10 visit over about 8 weeks of care. Pt to talk to Dr about if they feel he has done enough to get MRI approved. documented in this encounter [facility] 08-15-2024 Telephone encounter Note Noted, thank you! [facility] Work Phone: 08-15-2024 Miscellaneous Notes Noted, thank you! Appeal request has been approved and denial has been overturned. I faxed the MRI Cervical Spine order to [facility] with updated approval information. Sending back to Lisbeth ni FYI I spoke with [facility] who confirmed that the appeal request has been received and is pending/ open. Appeal ID# [id number] Appeal request with physical therapy notes 1-7 have been faxed to [facility]. Will continue to follow Hello! The patient has reportedly been in physical therapy since 06/20/2024, so he should have completed six weeks by now. Is [id number] still an option for his MRI cervical spine denial, or are we able to file an appeal for this? documented in this encounter [facility] 08-15-2024 Telephone encounter Note Appeal request has been approved and denial has been overturned. I faxed the MRI Cervical Spine order to [facility] with updated approval information. Sending back to Lisbeth ni FYI [facility] 08-15-2024 Telephone encounter Note I spoke with [facility] who confirmed that the appeal request has been received and is pending/ open. Appeal ID# [id number] [facility] 08-09-2024 Telephone encounter Note Appeal request with physical therapy notes 1-7 have been faxed to [facility]. Will continue to follow [facility] 08-08-2024 Telephone encounter Note Hello! The patient has reportedly been in physical therapy since 06/20/2024, so he should have completed six weeks by now. Is [id number] still an option for his MRI cervical spine denial, or are we able to file an appeal for this? [facility] 08-02-2024 History of Presen t illness Narrative Images from the original note were not included. Physical Therapy Physical Therapy Treatment Visit Patient Name: Jennifer Dumas Today's Date: 08/02/2024 Encounter Diagnoses Name Primary? Neck pain Yes Chronic midline low back pain without sciatica Multiple joint pain Paresthesia Visit number: 7 Time In: 8:20 am Time Out: 9:05 am Supervised Time: 40 min Total Time: 45 min Subjective Jennifer Dumas 59 y.o. male presents to physical therapy w/ chief c/o pain and decreased activity tolerance. Pt c/o multiple varying areas of pain including but not limited to neck, back, hips primarily. Mechanism of Onset: ~5 year worsening hx. Current deficits: pain, decreased ROM/flexibility, impaired gait, decreased tolerance to ADL/self care Pain: mild pain upon arrival neck and upper back greater than low back. Ortho ordered blood testing for potential Lyme disease, negative. MRI denied for upper back/neck advised to continue PT. Location: neck, low back and hips mostly today, reports issues with shoulders and knees as well. Also c/o intermittent n/t kimberly Ues nil this a.m. currently Aggravating Factors: ADLs/self care, bending, lifting, turning head, twisting back, looking up, looking down, prolonged sitting, standing, walking, driving Relieving factors: nil Imaging: Scheduled to have EMG next month. No other imaging in EMR system Occupation: not working Precautions: pt reports hx of kimberly shoulder dislocations Objective Gait: decreased ang, trunk and arm swing kimberly Posture: mod FW head, increased thoracic kyphosis and reduced lumbar lordosis Mod decreased HS flexibility kimberly. Core/hip strength grossly 4/5 MMT Lumbar mobility: mod loss all planes ERP with Ext, pulling flex and kimberly rotation. Neg spurlings kimberly, neg dural slump and SLR other than HS tightness Neck AROM: flex= min loss, ext= mod loss, kimberly rot= 40 degrees, kimberly side bend= mod loss pulling kimberly. Mod decreased flexibility kimberly Upper traps, min decreased kimberly levator scap. Min loss AROM overhead flex/scap kimberly shoulders. Back index= 50% impaired at IE Neck index= 38% impaired at IE Treatment Interventions Education: HEP education with demonstration Manual Therapy:x 10 min STM/IASTM to B UT and neck, STM to cervical and upper thoracic paraspinals and SO muscles. Therapeutic Exercise: x 30 min per LUISA grid, ROM, flexibility, strength demo and verbal cues for correct technique, increased some reps per grid. Neuromuscular re-education: TA training/lumbar stabilization with core/hip strengthening. Modalities:x declined heat vs cold end of session. Assessment/Plan Pt c/o multiple varying areas of pain including but not limited to neck, back, hips primarily causing increased difficulty with ADLs/self care, decreased QOL, also c/o n/t intermittent kimberly Ue's most noted in hands. Pt tolerates session pretty well today despite pain. Declined heat vs cold end of session. Continue as able. documented in this encounter [facility] 07-25-2024 History of Presen t illness Narrative Images from the original note were not included. Physical Therapy Physical Therapy Treatment Visit Patient Name: Jennifer Dumas Today's Date: 07/25/2024 Encounter Diagnoses Name Primary? Neck pain Yes Chronic midline low back pain without sciatica Visit number: 6 Time In: 9:20 am Time Out: 10:00 am Supervised Time: 38 min Total Time: 40 min Subjective Jennifer Dumas 59 y.o. male presents to physical therapy w/ chief c/o pain and decreased activity tolerance. Pt c/o multiple varying areas of pain including but not limited to neck, back, hips primarily. Mechanism of Onset: ~5 year worsening hx. Current deficits: pain, decreased ROM/flexibility, impaired gait, decreased tolerance to ADL/self care Pain: 5/10 pain upon arrival neck > back. Ortho ordered blood testing for potential Lyme disease. Location: neck, low back and hips mostly today, reports issues with shoulders and knees as well. Also c/o intermittent n/t kimberly Ues nil this a.m. currently Aggravating Factors: ADLs/self care, bending, lifting, turning head, twisting back, looking up, looking down, prolonged sitting, standing, walking, driving Relieving factors: nil Imaging: Scheduled to have EMG next month. No other imaging in EMR system Occupation: not working Precautions: pt reports hx of kimberly shoulder dislocations Objective Gait: decreased ang, trunk and arm swing kimberly Posture: mod FW head, increased thoracic kyphosis and reduced lumbar lordosis Mod decreased HS flexibility kimberly. Core/hip strength grossly 4/5 MMT Lumbar mobility: mod loss all planes ERP with Ext, pulling flex and kimberly rotation. Neg spurlings kimberly, neg dural slump and SLR other than HS tightness Neck AROM: flex= min loss, ext= mod loss, kimberly rot= 40 degrees, kimberly side bend= mod loss pulling kimberly. Mod decreased flexibility kimberly Upper traps, min decreased kimberly levator scap. Min loss AROM overhead flex/scap kimberly shoulders. Back index= 50% impaired at IE Neck index= 38% impaired at IE Treatment Interventions Education: HEP education with demonstration Manual Therapy:x 15 min STM/IASTM to B UT and neck, STM to cervical and upper thoracic paraspinals and SO muscles. Therapeutic Exercise: x 23 min per LUISA grid, ROM, flexibility, strength demo and verbal cues for correct technique, increased some reps and hold time. Therapeutic Activity: Exercises to improve dynamic activities, functional tasks, functional mobility to return to prior activity level Gait Training: prn Neuromuscular re-education: TA training/lumbar stabilization with core/hip strengthening. Modalities:x PRN heat to cervical and lumbar spine in seated post session for stiffness and soreness Assessment/Plan Pt c/o multiple varying areas of pain including but not limited to neck, back, hips primarily causing increased difficulty with ADLs/self care, decreased QOL, also c/o n/t intermittent kimberly Ue's most noted in hands. Pt tolerates session well today. Discomfort with most supine LUISA. No real change in pain post session. MRI scheduled for August 04, 2024. Continue as able. documented in this encounter [facility] 07-20-2024 History of Presen t illness Narrative Images from the original note were not included. NAME: Jennifer Dumas : 1965 HISTORY OF PRESENT ILLNESS: NEW PT Jennifer Dumas is an 59 y.o. @ male. NEW PT, N/T B/L HANDS LT > RT. EMG 07/05/24 @ [facility]. [facility] REFERRAL ([facility])- SYMPTOMS FOR YRS - NO KNOWN INJURY- EMG @ [facility] 07/05/24 MRI C-SPINE SCHEDULED 08/04/24 @ [facility] NO SPLINT PT STATES HE CAN HAVE N/T ENTIRE HAND- PT STATES IT DEPENDS ON WHAT POSITION HIS ARMS ARE IN-NOTES PAINFUL ROM- ETODOLAC Acute Neurological Problem The current episode started more than 1 year ago. The problem has been unchanged. Associated symptoms include fatigue, neck pain and weakness. Pertinent negatives include no abdominal pain, chest pain, diaphoresis, fever, headaches, nausea, vertigo or vomiting. The treatment provided mild relief. PAST MEDICAL HISTORY: Past Medical History: Diagnosis Date Carpal tunnel syndrome, bilateral Dislocation, shoulder 1991 Fracture of hand 2012 Numbness Positive CATHY (antinuclear antibody) Ulnar neuropathy Weakness of limb PAST SURGICAL HISTORY: History reviewed. No pertinent surgical history. SOCIAL HISTORY: Social History Occupational History Not on file Tobacco Use Smoking status: Former Current packs/day: 1.00 Average packs/day: 1 pack/day for 40.0 years (40.0 ttl pk-yrs) Types: Cigarettes Smokeless tobacco: Current Types: Snuff Substance and Sexual Activity Alcohol use: Yes Alcohol/week: 6.0 standard drinks of alcohol Types: 6 Cans of beer per week Drug use: Never Sexual activity: Yes Partners: Female ALLERGIES: Allergies Allergen Reactions Bee Venom Shortness of breath and Swelling HOME MEDICATIONS: Current Outpatient Medications Medication Instructions celecoxib (CELEBREX) 200 mg, Oral, Daily, Take with food etodolac (LODINE) 500 mg, 2 times daily REVIEW OF SYSTEMS: Review of Systems Constitutional: Positive for fatigue. Negative for diaphoresis and fever. Respiratory: Negative for shortness of breath. Cardiovascular: Negative for chest pain and palpitations. Gastrointestinal: Negative for abdominal pain, nausea and vomiting. Musculoskeletal: Positive for back pain and neck pain. Neurological: Positive for dizziness, weakness and light-headedness. Negative for vertigo and headaches. Psychiatric/Behavioral: Negative for confusion. Vitals: Body mass index is 44.08 kg/m . Tobacco Use: High Risk (07/20/2024) Patient History Smoking Tobacco Use: Former Smokeless Tobacco Use: Current Passive Exposure: Not on file Alcohol Use: Not on file PHYSICAL EXAM: Hand/Wrist Musculoskeletal Exam Inspection Right Right hand/wrist inspection is normal. Erythema: none Ecchymosis: none Edema: none Deformity: none Left Left hand/wrist inspection is normal. Erythema: none Ecchymosis: none Edema: none Deformity: none Palpation Right Right hand palpation is normal. Left Left hand palpation is normal. Palpation additional comments: DENIES PAIN TO PALPATION OF HAND/ WRIST JOINT Range of Motion Right Hand Right hand range of motion is normal. Left Hand Left hand range of motion is normal. Range of motion additional comments: ABLE TO MAKE FULL FIST Strength Right Hand Right hand strength is normal. Left Hand Left hand strength is normal. 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 Radial pulse: normal and 2+ Capillary refill: <3 sec Left Left neurovascular exam is normal. Radial pulse: normal and 2+ Capillary refill: <3 sec Special Tests Right Phalen's: negative Elbow flexion: positive Tinel's - carpal tunnel: negative Tinel's - cubital tunnel: negative Left Phalen's: negative Elbow flexion: negative Tinel's - carpal tunnel: negative Tinel's - cubital tunnel: negative Special tests additional comments: Reflexes 2+ Symmetric Biceps, triceps and brachial radialis. General Constitutional: appears stated age Labored breathing: no Neurological: alert and oriented x3 Skin: intact Lymphadenopathy: none Shoulder Musculoskeletal Exam Inspection Right Right shoulder inspection is normal. Ecchymosis: none Peripheral edema: none Atrophy: none Masses: none Palpation Right Right shoulder palpation is normal. Crepitus: no crepitus Increased warmth: none Tenderness: present Anterior shoulder: mild Trapezius: moderate Proximal biceps: mild Lateral arm: mild Left Tenderness: present Trapezius: moderate Range of Motion Right Right shoulder range of motion is normal. Active ROM: normal. Passive ROM: normal and pain. Strength Right External rotation: 5/5. Internal rotation: 5/5. Abduction: 5/5. Biceps: 5/5. Triceps: 5/5. Neurovascular Right Radial pulse: normal and 2+ Capillary refill: <3 sec Axillary nerve sensory distribution: normal Left Radial pulse: normal and 2+ Capillary refill: <3 sec Scapula Right Right shoulder scapula is normal. Position: normal Winging: none Special Tests Right Rotator Cuff Signs Painful arc test: positive Biceps/govind Signs Upson's test: positive Instability Signs Anterior apprehension test: positive General Constitutional: appears stated age Labored breathing: no Neurological: alert and oriented x3 Skin: intact Lymphadenopathy: none IMAGING: Procedures Orders Placed This Encounter Procedures Myoglobin, serum Standing Status: Future Number of Occurrences: 1 Standing Expiration Date: 07/20/2025 Order Specific Question: Print requisition? Answer: Yes Sedimentation rate, automated Standing Status: Future Number of Occurrences: 1 Standing Expiration Date: 07/20/2025 Order Specific Question: Print requisition? Answer: Yes C-reactive protein Standing Status: Future Number of Occurrences: 1 Standing Expiration Date: 07/20/2025 Order Specific Question: Print requisition? Answer: Yes LYME DISEASE ANTIBODY (IGG), IMMUNOBLOT Standing Status: Future Number of Occurrences: 1 Standing Expiration Date: 07/20/2025 Order Specific Question: Print requisition? Answer: Yes ASSESSMENT: ICD-10-CM 1. Paresthesia of hand, bilateral R20.2 Ambulatory referral to Orthopaedic Surgery 2. Polyarthralgia M25.50 Myoglobin, serum Sedimentation rate, automated C-reactive protein LYME DISEASE ANTIBODY (IGG), IMMUNOBLOT Myoglobin, serum Sedimentation rate, automated C-reactive protein LYME DISEASE ANTIBODY (IGG), IMMUNOBLOT celecoxib (CeleBREX) 200 MG capsule Assessment & Plan 1. Polyarthralgia. His symptoms are primarily concentrated in the neck region but also extend to both shoulders. He currently reports no numbness or tingling sensations in his hands. A discussion regarding his EMG results revealed intermittent mild carpal tunnel symptoms, with no persistent manifestations. His primary concern is the generalized joint pain. Despite being under rheumatology care and on Lodine for several months, he reports no significant relief. Given [place] of [place] of [place] and potential exposure to Lyme disease through multiple tick bites, coupled with prolonged joint pain, a Lyme titer and basic blood work were proposed and agreed upon. His only reported relief has been through oral steroids. A switch to Celebrex was recommended as an alternative treatment option. A follow-up visit is planned post-MRI of the C-spine to further evaluate his shoulder condition. Pt will hold Lodine with trial of celebrex. Questions answered in laymen terms at the bedside. The diagnosis, home exercise plan and any ongoing restrictions/ recommendations reviewed. If unable to be reached in office, I recommend evaluation at nearest Emergency Room if any symptoms worsened or new symptoms develop for requiring urgent evaluation. documented in this encounter [facility] 07-14-2024 Telephone encounter Note PT office notes needed faxed to [facility] -[phone] Ty [facility] 07-14-2024 Miscellaneous Notes PT office notes needed faxed to [facility] -[phone] Ty documented in this encounter [facility] 07-06-2024 History of Presen t illness Narrative Images from the original note were not included. Chief Complaint Patient presents with Neck Pain Subjective Jennifer Dumas is a 59 y.o. male. History of Present Illness The patient presents today for follow up. He had an EMG completed for review. At the prior appointment, he was referred to physical therapy. He is going to physical therapy and states this has helped him stretch out but denies any other noticeable benefit. He states he is, always uncomfortable, due to chronic pain. The patient reports pain in the bilateral posterior neck and shoulders. This is chronic and constant. He denies preceding injury but states he did, really heavy, physical activity for his job previously. His neck pain does not radiate to the upper extremities. He describes it as achy. Severity is 5/10 to 6/10 on average. The patient also reports weakness in the bilateral upper extremities and lower extremities. He states he is not nearly as strong as he used to be years ago. He has intermittent tingling in the 3rd through 5th digits of the bilateral hand (left more severe than right). He states it feels like his hand has fallen asleep when this happens. The paresthesias can happen at any time but primarily occur when he puts external pressure on his elbow or when he flexes elbow to hold his head up while laying in bed. He denies saddle anesthesia, bowel/bladder dysfunction, imbalance, gait abnormality, or recent falls. He mentions he also has chronic low back pain. Review of Systems Constitutional: Negative for appetite change, chills, fatigue, fever and unexpected weight change. HENT: Negative for trouble swallowing and voice change. Eyes: Negative for visual change, double vision or loss of vision Respiratory: Negative for cough, shortness of breath and wheezing. Cardiovascular: Negative for chest pain and palpitations. Gastrointestinal: Negative for abdominal pain, blood in stool, nausea and vomiting. Musculoskeletal: Positive for arthralgias, back pain (low back) and neck pain. Negative for gait problem and myalgias. Neurological: Positive for weakness. Negative for dizziness, tremors, seizures, syncope, facial asymmetry, speech difficulty, light-headedness, numbness and headaches. Positive for paresthesias Psychiatric/Behavioral: Negative for confusion, hallucinations and suicidal ideas. The patient is not nervous/anxious. Home Medication List etodolac 500 MG tablet; Commonly known as: Lodine Past Medical History: Diagnosis Date Carpal tunnel syndrome, bilateral Numbness Positive CATHY (antinuclear antibody) Ulnar neuropathy Weakness of limb No past surgical history on file. No family history on file. Social History Tobacco Use Smoking status: Every Day Current packs/day: 1.00 Average packs/day: 1 pack/day for 40.0 years (40.0 ttl pk-yrs) Types: Cigarettes Smokeless tobacco: Current Types: Snuff Substance Use Topics Alcohol use: Yes Alcohol/week: 6.0 standard drinks of alcohol Types: 6 Cans of beer per week Allergies: Bee venom Vitals: 07/06/24 0838 BP: 142/88 Pulse: 88 SpO2: 94% Body mass index is 47.33 kg/m . weight: 349 lb Neurologic exam: Mental status and general appearance: Awake and alert with unlabored respirations. Oriented to person, place, and time. Recent and remote memory are intact. Speech is clear and fluent without aphasia. Speech is non-dysarthric. Attention and concentration are normal. Fund of knowledge is appropriate for level of education. Pleasant. Cranial nerves: CN II: Visual acuity is normal. Visual woodall full to confrontation. CN III, IV, : Pupils are equal, round, and reactive to light. Extraocular movements intact. No ptosis present. CN V: Facial sensation is normal. CN VII: Full and symmetric facial movement. CN VIII: Hearing is normal to finger rub bilaterally. CN IX and X: Palate elevates symmetrically. CN XI: Shoulder shrug is normal bilaterally. CN XII: Tongue is midline without atrophy or fasciculation. Motor: RUE strength deltoid , biceps , triceps , wrist extensors , wrist flexor , and political theory professor strength 5/5. LUE strength deltoid , biceps , triceps , wrist extensors , wrist flexor , and political theory professor strength 5/5. RLE strength iliopsoas, quadriceps, tibialis anterior, and plantar flexion strength 5/5. LLE strength iliopsoas, quadriceps, tibialis anterior, and plantar flexion strength 5/5. Tone and bulk are normal. Sensory: Sensation is intact to light touch throughout all four extremities. Sensation is intact to temperature in all extremities. No tenderness to palpation of the bilateral trapezius or cervical paraspinal muscles. Reflexes: RUE biceps reflex 3+ , brachioradialis reflex 3+. LUE biceps reflex 3+ , brachioradialis reflex 3+. RLE Knee reflex 2+. LLE Knee reflex 2+. Coordination: [id number] testing normal. Rapid alternating movements are normal. Gait: Normal. Review and summary of old records: EMG of the bilateral upper extremities at [facility] on 07/05/2024: Bilateral ulnar neuropathies which are axon loss in type, non localizable, and mild in the right and moderate on the left and electrically. Bilateral median neuropathies at or distal to the wrist, such as in carpal tunnel syndrome, which are minimal in degree electrically. No evidence of a cervical motor radiculopathy or brachial plexopathy. CK, RPR and aldolase on 03/18/2024: Within normal limits. Extensive antibody evaluation by rheumatology was also negative/unremarkable. Assessment/Plan Diagnoses and all orders for this visit: I reviewed EMG results with the patient. Neck pain Paresthesias The patient reports posterior neck pain with radiation to the bilateral shoulders. He also reports generalized weakness in the bilateral upper and lower extremities. He has bilateral carpal tunnel syndrome and ulnar neuropathies, however, I would not expect these conditions to explain the symptoms. The patient reports progressive symptoms and has reflex changes and dermatomal distribution of symptoms. He has failed conservative measures including physical therapy. This warrants imaging to assess for a possible compressive lesion in the cervical spine that could be debilitating if not promptly identified and treated. He did undergo rheumatology evaluation previously which was largely unremarkable per documentation from Dr. Casarez. PLAN: - MRI of the cervical spine to assess for a structural lesion including degenerative cervical spine disease which may be contributing to the patient's symptoms - Will also refer the patient to pain management for further evaluation and treatment, as the patient seems to have chronic pain in multiple locations including the neck. I believe this would be best managed by a sign writer letterer or painter Ulnar neuropathy of both upper extremities The patient has bilateral ulnar neuropathies (mild on the right and moderate on the left) as identified on [facility] EMG from 07/05/2024. He reports intermittent paresthesias in the bilateral hands (most prominent in the 3rd through 5th digits), especially with elbow flexion. He also reports generalized weakness in the upper extremities, though no focal weakness is identified on clinical exam. PLAN: - I advised the patient to avoid leaning on the elbows and avoid prolonged elbow flexion - As the sensory symptoms are quite bothersome to the patient and negatively affect his quality of life, will refer to orthopedic surgery for further evaluation and treatment Bilateral carpal tunnel syndrome The patient also has bilateral carpal tunnel syndrome (minimal) as identified on [facility] EMG from 07/05/2024. He does not seem to have many symptoms in relation to this. He does report intermittent paresthesias in the 3rd through 5th digits of the bilateral hands as detailed above. However, clinically, these symptoms seem to fit more closely with ulnar neuropathies than median neuropathies. I did not appreciate any focal weakness or atrophy of the thenar eminence on exam. PLAN: - I recommended the use of bilateral cock-up wrist splints at bedtime if symptoms present Diagnosis and treatment options discussed in detail. All questions answered. The patient verbalizes understanding and is agreeable to the plan. Discussion in layman's terms. Follow up in the office within 1 month; sooner if needed for new or worsening symptoms. Lisbeth Grimes NP [facility] Advanced Neurology documented in this encounter [facility] 07-06-2024 Instructions Lisbeth Grimes NP - 07/06/2024 8:40 AM EST - [facility] the [facility] - Referral to orthopedic surgery ([place]) - Referral to pain management ([facility]) documented in this encounter [facility] 07-05-2024 History of Presen t illness Narrative Images from the original note were not included. Reason for Appointment: EMG Patient: Jennifer Dumas : 1965 EMG Computer: [employer] Referring Physician: Dr. Aniceto Casarez EMG: ALFREDO film process operator: Christiano Castro RT(R) Office Location: [place] Reason for EMG: c/o numbness/tingling in left hand, joint pain throughout body, neck pain. No hx of DM. Not on blood thinners. Comments: Procedure was explained to the patient who expressed understanding. Patient appeared to have tolerated the test well despite some discomfort due to the nature of the test. documented in this encounter [facility] 06-20-2024 History of Presen t illness Narrative Images from the original note were not included. Physical Therapy Physical Therapy Evaluation Visit Patient Name: Jennifer Dumas Today's Date: 06/20/2024 Encounter Diagnoses Name Primary? Neck pain Yes Chronic midline low back pain without sciatica Multiple joint pain Paresthesia Visit number: 1 Subjective Jennifer Dumas 58 y.o. male presents to physical therapy w/ chief c/o pain and decreased activity tolerance. Pt c/o multiple varying areas of pain including but not limited to neck, back, hips primarily. Mechanism of Onset: ~5 year worsening hx. Current deficits: pain, decreased ROM/flexibility, impaired gait, decreased tolerance to ADL/self care Pain: ranges from nil to mod at times Location: neck, low back and hips mostly today, reports issues with shoulders and knees as well. Also c/o intermittent n/t kimberly Ues nil this a.m. currently Aggravating Factors: ADLs/self care, bending, lifting, turning head, twisting back, looking up, looking down, prolonged sitting, standing, walking, driving Relieving factors: nil Imaging: Scheduled to have EMG next month. No other imaging in EMR system Occupation: not working Precautions: pt reports hx of kimberly shoulder dislocations Objective Gait: decreased ang, trunk and arm swing kimberly Posture: mod FW head, increased thoracic kyphosis and reduced lumbar lordosis Mod decreased HS flexibility kimberly. Core/hip strength grossly 4/5 MMT Lumbar mobility: mod loss all planes ERP with Ext, pulling flex and kimberly rotation. Neg spurlings kimberly, neg dural slump and SLR other than HS tightness Neck AROM: flex= min loss, ext= mod loss, kimberly rot= 40 degrees, kimberly side bend= mod loss pulling kimberly. Mod decreased flexibility kimberly Upper traps, min decreased kimberly levator scap. Min loss AROM overhead flex/scap kimberly shoulders. Back index= 50% impaired at IE Neck index= 38% impaired at IE Treatment Interventions Education: HEP education with demonstration, Educated on Eval Findings and POC Manual Therapy: PROM, STM/massage, cervical SO release, cervical traction, MET's prn Therapeutic Exercise: per LUISA grid, ROM, flexibility, strength x 24 min sup demo and verbal cues for correct technique Therapeutic Activity: Exercises to improve dynamic activities, functional tasks, functional mobility to return to prior activity level Gait Training: prn Neuromuscular re-education: TA training/lumbar stabilization with core/hip strengthening. Modalities: heat prn. Declined today Assessment/Plan Pt c/o multiple varying areas of pain including but not limited to neck, back, hips primarily causing increased difficulty with ADLs/self care, decreased QOL, also c/o n/t intermittent kimberly Ue's most noted in hands. Patient Goals Short Term Goal #1: pt will no longer c/o n/t kimberly UEs Short Term Goal #2: pt will demo at least mod improved cervical and lumbar mobility/flexibility pain free Short Term Goal #3: pt will self report impairment less than or equal to 15% per both neck and back index's at NC Short Term Goal #4: pt will be ind with HEP for maintenance at [facility] and not feel the need for further Dx testing/intervention at [facility] Pt will benefit from skilled PT to address the above impairments for 1-3x/week for 6 weeks pending pt needs/progress I hereby deem this POC medically necessary. Please sign below. Date: documented in this encounter [facility] 06-09-2024 History of Presen t illness Narrative Images from the original note were not included. Chief complaint: Paresthesias and neck pain Subjective Jennifer Dumas, 58 y.o., male Jennifer presents today for a neurologic consult at the request of Rosa Isela Haskins CNP for chronic joint pain and degenerative disk disease. Patient states his pain is in all of his joints. He reports this has been going on for about 5 years. He states he can't sit or stand for long periods of time. He states it is difficult getting up and down. He reports intermittent numbness and tingling in bilateral hands. He also reports a redness and bumps on his face. He admits to extreme fatigue and occasional imbalance. He denies any falls but has had a few close calls. He denies any dizziness or headaches. This has been going on for about 3 years. He has seen rheumatology who ruled out any autoimmune process. He has had lab work but no imaging. He is currently taking etodolac. He was recently on a steroid which he said helped immensely. Review of Systems Constitutional: Negative for appetite change, fatigue and fever. Respiratory: Negative for cough, shortness of breath and wheezing. Cardiovascular: Negative for chest pain, palpitations and leg swelling. Gastrointestinal: Negative for abdominal pain, constipation, diarrhea and nausea. Musculoskeletal: Positive for arthralgias. Negative for gait problem and myalgias. Neurological: Negative for dizziness, tremors, numbness and headaches. No past medical history on file. No past surgical history on file. No family history on file. Social History Tobacco Use Smoking status: Not on file Smokeless tobacco: Not on file Substance Use Topics Alcohol use: Not on file Allergies: Patient has no known allergies. Vitals: 06/09/24 1050 BP: 131/83 Pulse: 73 SpO2: 94% Body mass index is 46.52 kg/m . weight: 343 lb Neurologic exam: Mental status: Awake, alert to person, place and time. Recent and remote memory are intact. Language is fluent without aphasia. Attention and concentration are normal. Fund of knowledge is appropriate for level of education. Cranial nerves: CN II: Visual acuity is normal. Visual woodall full to confrontation. CN III, IV, : pupils equal round and reactive to light. Extraocular movements intact. No ptosis present. CN V: Facial sensation is normal. CN VII: Full and symmetric facial movement. CN VIII: Hearing is normal to finger rub bilaterally: CN IX and X: Palate elevates symmetrically. CN XI: Shoulder shrug is normal bilaterally. CN XII: Tongue is midline without atrophy or fasciculation. Motor: RUE Strength deltoid, , biceps , triceps , wrist extensors , wrist flexor , political theory professor strength 5/5. LUE Strength deltoid , biceps , triceps , wrist extensors , wrist flexor , political theory professor strength 5/5. RLE Strength illopsoas, quadriceps, tibialis anterior, and gastrocnemius strength 5/5. LLE Strength illopsoas, quadriceps, tibialis anterior, and gastrocnemius strength 5/5. Normal tone x4 extremities. Bulk is normal. Sensory: Sensation is intact to light touch throughout Four extremities. Reflexes: RUE biceps reflex 2+ brachioradialis reflex 2+ . LUE biceps reflex 2+ brachioradialis reflex 2+ . RLE knee reflex 2+ . LLE knee reflex 2+ . Martin's sign negative. Coordination: [id number] testing and rapid alternating movements are normal Gait: Normal Review and summary of old records: CK, RPR and aldolase are within normal limits on 03/18/2024 Extensive antibody evaluation by Rheumatology also negative/ unremarkable Assessment/Plan Diagnoses and all orders for this visit: Paresthesia Neck pain It is my impression that the patient has paresthesias and pain in the upper extremities. This seems to be neck pain and radiation into the arms. He also mentions pain in his elbows and hands. He has had evaluation by Rheumatology wondering if this was joint more inflammatory in nature. This was essentially largely unremarkable. I wonder if this could be radicular pathology or even mononeuropathy in nature. Plan: Physical therapy EMG of the bilateral upper extremities to assess for pathology as above and determine type and severity Pending results, the patient may be a candidate for imaging of the cervical spine Also may need to consider pain management options if radicular process is identified Pt has been fully educated on their diagnosis, lab results, treatment options, follow up plan, and return instructions documented in this encounter [facility] 05-10-2024 History of Presen t illness Narrative Images from the original note were not included. [address] [place] [id number] SUBJECTIVE: Patient ID: Jennifer Dumas is a 58 y.o. male. Chief Complaint Patient presents with pain in the joints- pain scale 6 Patient presents for multiple joint pain. States is unchanged. He was recently referred to rheumatology and was evaluated for positive CATHY on two occasions. He had extensive testing done by specialist, CATHY was negative. Was informed his diagnosis is chronic musculoskeletal pain, degenerative joint disease. Was prescribed Etodolac and tizanidine but states he has not picked up the medication from the pharmacy yet. He would like to discuss referral to neurology. The following portions of the patient's history were reviewed and updated as appropriate: allergies, current medications, past family history, past medical history, past social history, past surgical history and problem list. No past surgical history on file. Past Medical History: Diagnosis Date Back pain Hypertension Lupus Visual impairment There is no immunization history on file for this patient. REVIEW OF SYSTEMS: Review of Systems Constitutional: Negative for chills, fatigue and fever. HENT: Negative for hearing loss and trouble swallowing. Eyes: Negative for pain and visual disturbance. Respiratory: Negative for cough, chest tightness and shortness of breath. Cardiovascular: Negative for chest pain, palpitations and leg swelling. Gastrointestinal: Negative for blood in stool. Endocrine: Negative for polydipsia, polyphagia and polyuria. Genitourinary: Negative for difficulty urinating, dysuria, flank pain, hematuria, scrotal swelling and testicular pain. Musculoskeletal: Positive for arthralgias and myalgias. Skin: Negative. Allergic/Immunologic: Negative. Neurological: Negative for seizures, syncope and headaches. Hematological: Does not bruise/bleed easily. Psychiatric/Behavioral: Negative. PHYSICAL EXAMINATION: Vitals: 05/10/24 1253 BP: 124/60 BP Site: Left Arm BP Postition: Sitting Pulse: 74 Resp: 18 Temp: 37.1 C (98.7 F) TempSrc: Oral SpO2: 96% Weight: (!) 153.1 kg (337 lb 9.6 oz) Height: 182.9 cm (6') Patient noted to have elevated BMI and the following intervention(s) were applied: encouragement to exercise. Physical Exam Vitals and nursing note reviewed. Constitutional: General: He is not in acute distress. Appearance: He is well-developed. HENT: Head: Normocephalic and atraumatic. Right Ear: Tympanic membrane and external ear normal. Left Ear: Tympanic membrane and external ear normal. Nose: Nose normal. Mouth/Throat: Mouth: Mucous membranes are moist. Pharynx: No oropharyngeal exudate. Eyes: General: No scleral icterus. Right eye: No discharge. Left eye: No discharge. Conjunctiva/sclera: Conjunctivae normal. Pupils: Pupils are equal, round, and reactive to light. Neck: Vascular: No JVD. Cardiovascular: Rate and Rhythm: Normal rate and regular rhythm. Heart sounds: Normal heart sounds. No murmur heard. No friction rub. No gallop. Pulmonary: Effort: Pulmonary effort is normal. No respiratory distress. Breath sounds: Normal breath sounds. Chest: Chest wall: No tenderness. Abdominal: General: Bowel sounds are normal. There is no distension. Palpations: Abdomen is soft. There is no mass. Tenderness: There is no abdominal tenderness. There is no guarding or rebound. Hernia: No hernia is present. Musculoskeletal: General: No tenderness. Normal range of motion. Cervical back: Normal range of motion and neck supple. Lymphadenopathy: Cervical: No cervical adenopathy. Skin: General: Skin is warm and dry. Capillary Refill: Capillary refill takes less than 2 seconds. Findings: No rash. Neurological: Mental Status: He is alert and oriented to person, place, and time. Deep Tendon Reflexes: Reflexes are normal and symmetric. Psychiatric: Mood and Affect: Mood normal. Behavior: Behavior normal. Thought Content: Thought content normal. Judgment: Judgment normal. ASSESSMENT/PLAN: Jennifer was seen today for pain in the joints- pain scale 6. Diagnoses and all orders for this visit: Pain in joints - Ambulatory referral to Neurology ([facility]); Future - predniSONE (DELTASONE) 20 mg tablet; Take 1 tablet (20 mg total) by mouth See Admin Instructions. 1 tab 2x daily x3 days, 1 tab daily x3 days, 1/2 tablet daily x4 days Reviewed Dr. Sim, rheumatology notes and labs. CATHY and serology was negative. SED rate 32. Discussed at length about chronic pain. Will refer to neurology for further evaluation. Start Prednisone taper. I encourage patient to start Etodolac and Zanaflex ordered by rheumatology. He next rheumatology appointment with labs is in August. Body mass index is 45.79 kg/m . Patient noted to have elevated BMI and the following intervention(s) were applied: Discussed current weight today. Consider healthy food choices, portion control. Avoid sugary beverages and high concentrated sweets. Routine exercise regimen encouraged. ALL QUESTIONS ANSWERED Total time spent was 25 minutes: Preparing to see the patient (e.g., review of tests) Obtaining and/or reviewing separately obtained history Performing a medically appropriate examination and/or evaluation Counseling and educating the patient/family/caregiver Ordering medications, tests, or procedures Follow-up: September ANDRESSA Guzman 05/10/24 1413 documented in this encounter [email or web address] 02-01-2024 History of Presen t illness Narrative Images from the original note were not included. [address] [facility] [id number] SUBJECTIVE: Patient ID: Jennifer Dumas is a 58 y.o. male. Chief Complaint Patient presents with Annual Exam Presents for annual physical exam He is single. Has grown children. Does not work due to medical illnesses. 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 Does not smoke. Was referred to rheumatology at last visit in December for possible lupus. He has not received a call yet. Annual Exam Pertinent negatives include no chest pain, chills, coughing, fatigue, fever or headaches. The following portions of the patient's history were reviewed and updated as appropriate: allergies, current medications, past family history, past medical history, past social history, past surgical history and problem list. History reviewed. No pertinent surgical history. Past Medical History: Diagnosis Date Back pain Hypertension Lupus ([facility]) Visual impairment There is no immunization history on file for this patient. REVIEW OF SYSTEMS: Review of Systems Constitutional: Negative for chills, fatigue and fever. HENT: Negative for hearing loss and trouble swallowing. Eyes: Negative for pain and visual disturbance. Respiratory: Negative for cough, chest tightness and shortness of breath. Cardiovascular: Negative for chest pain, palpitations and leg swelling. Gastrointestinal: Negative for blood in stool. Endocrine: Negative for polydipsia, polyphagia and polyuria. Genitourinary: Negative for difficulty urinating, dysuria, flank pain, hematuria, scrotal swelling and testicular pain. Musculoskeletal: Negative. Skin: Negative. Allergic/Immunologic: Negative. Neurological: Negative for seizures, syncope and headaches. Hematological: Does not bruise/bleed easily. Psychiatric/Behavioral: Negative. PHYSICAL EXAMINATION: Vitals: 02/01/24 1606 BP: 120/70 BP Site: Left Arm BP Postition: Sitting Pulse: 72 Resp: 18 Temp: 36.8 C (98.2 F) TempSrc: Oral SpO2: 98% Weight: (!) 153.4 kg (338 lb 3.2 oz) Height: 182.9 cm (6') Patient noted to have elevated BMI and the following intervention(s) were applied: encouragement to exercise. Physical Exam Vitals and nursing note reviewed. Constitutional: General: He is not in acute distress. Appearance: He is well-developed. HENT: Head: Normocephalic and atraumatic. Right Ear: Tympanic membrane and external ear normal. Left Ear: Tympanic membrane and external ear normal. Nose: Nose normal. Mouth/Throat: Mouth: Mucous membranes are moist. Pharynx: No oropharyngeal exudate. Eyes: General: No scleral icterus. Right eye: No discharge. Left eye: No discharge. Conjunctiva/sclera: Conjunctivae normal. Pupils: Pupils are equal, round, and reactive to light. Neck: Vascular: No JVD. Cardiovascular: Rate and Rhythm: Normal rate and regular rhythm. Heart sounds: Normal heart sounds. No murmur heard. No friction rub. No gallop. Pulmonary: Effort: Pulmonary effort is normal. No respiratory distress. Breath sounds: Normal breath sounds. Chest: Chest wall: No tenderness. Abdominal: General: Bowel sounds are normal. There is no distension. Palpations: Abdomen is soft. There is no mass. Tenderness: There is no abdominal tenderness. There is no guarding or rebound. Hernia: No hernia is present. Musculoskeletal: General: No tenderness. Normal range of motion. Cervical back: Normal range of motion and neck supple. Lymphadenopathy: Cervical: No cervical adenopathy. Skin: General: Skin is warm and dry. Capillary Refill: Capillary refill takes less than 2 seconds. Findings: No rash. Neurological: Mental Status: He is alert and oriented to person, place, and time. Deep Tendon Reflexes: Reflexes are normal and symmetric. Psychiatric: Mood and Affect: Mood normal. Behavior: Behavior normal. Thought Content: Thought content normal. Judgment: Judgment normal. ASSESSMENT/PLAN: Jennifer was seen today for annual exam. Diagnoses and all orders for this visit: Annual physical exam Blood tests for routine general physical examination - Lipid panel; Future Encounter for screening for malignant neoplasm of prostate - Prostatic specific antigen screen; Future Special screening for malignant neoplasm of colon - Cologuard [facility] Body mass index is 45.87 kg/m . Patient noted to have elevated BMI and the following intervention(s) were applied: Discussed current weight today. Consider healthy food choices, portion control. Avoid sugary beverages and high concentrated sweets. Routine exercise regimen encouraged. Colonoscopy screening discussed today. Risk and benefits of procedure explained. Patient declines colonoscopy but is agreeable to Cologuard. Our office will reach out to [facility], resend referral. Labs drawn in office today ALL QUESTIONS ANSWERED Total time spent was 30 minutes: Preparing to see the patient (e.g., review of tests) Obtaining and/or reviewing separately obtained history Performing a medically appropriate examination and/or evaluation Counseling and educating the patient/family/caregiver Ordering medications, tests, or procedures Follow-up: Annual physical ANDRESSA Guzman 02/01/24 1654 documented in this encounter [facility] 12-30-2023 History of Presen t illness Narrative Images from the original note were not included. [address] [facility] [id number] SUBJECTIVE: Patient ID: Jennifer Dumas is a 58 y.o. male. Chief Complaint Patient presents with New Patient Presents for new patient establishment. He was last seen by PCP in 2020. Had positive CATHY and was previously referred to rheumatology. He did not follow up as he lost his insurance coverage. States he has noticed significant increase with multiple joint pain and now has rash on his face. Overall has not felt like himself in months. New Patient Associated symptoms include arthralgias, myalgias, numbness, a rash and weakness. Pertinent negatives include no abdominal pain, anorexia, change in bowel habit, chest pain, chills, congestion, coughing, fatigue, fever, headaches, sore throat, swollen glands, urinary symptoms, vertigo, visual change or vomiting. Nothing aggravates the symptoms. He has tried relaxation, rest and NSAIDs for the symptoms. The treatment provided no relief. The following portions of the patient's history were reviewed and updated as appropriate: allergies, current medications, past family history, past medical history, past social history, past surgical history and problem list. History reviewed. No pertinent surgical history. Past Medical History: Diagnosis Date Back pain Hypertension Visual impairment There is no immunization history on file for this patient. REVIEW OF SYSTEMS: Review of Systems Constitutional: Negative for chills, fatigue and fever. HENT: Negative for congestion, hearing loss, sore throat and trouble swallowing. Eyes: Negative for pain and visual disturbance. Respiratory: Negative for cough, chest tightness and shortness of breath. Cardiovascular: Negative for chest pain, palpitations and leg swelling. Gastrointestinal: Negative for abdominal pain, anorexia, blood in stool, change in bowel habit and vomiting. Endocrine: Negative for polydipsia, polyphagia and polyuria. Genitourinary: Negative for difficulty urinating, dysuria, flank pain, hematuria, scrotal swelling and testicular pain. Musculoskeletal: Positive for arthralgias and myalgias. Skin: Positive for rash. Neurological: Positive for weakness and numbness. Negative for vertigo, seizures, syncope and headaches. Hematological: Does not bruise/bleed easily. Psychiatric/Behavioral: Negative. PHYSICAL EXAMINATION: Vitals: 12/30/23 1357 BP: 136/72 Pulse: 83 Resp: 20 SpO2: 95% Weight: (!) 152.5 kg (336 lb 3.2 oz) Height: 177.8 cm (5' 10 ) Patient noted to have elevated BMI and the following intervention(s) were applied: encouragement to exercise. Physical Exam Vitals and nursing note reviewed. Constitutional: General: He is not in acute distress. Appearance: He is well-developed. HENT: Head: Normocephalic and atraumatic. Right Ear: Tympanic membrane and external ear normal. Left Ear: Tympanic membrane and external ear normal. Nose: Nose normal. Mouth/Throat: Mouth: Mucous membranes are moist. Pharynx: No oropharyngeal exudate. Eyes: General: No scleral icterus. Right eye: No discharge. Left eye: No discharge. Conjunctiva/sclera: Conjunctivae normal. Pupils: Pupils are equal, round, and reactive to light. Neck: Vascular: No JVD. Cardiovascular: Rate and Rhythm: Normal rate and regular rhythm. Heart sounds: Normal heart sounds. No murmur heard. No friction rub. No gallop. Pulmonary: Effort: Pulmonary effort is normal. No respiratory distress. Breath sounds: Normal breath sounds. Chest: Chest wall: No tenderness. Abdominal: General: Bowel sounds are normal. There is no distension. Palpations: Abdomen is soft. There is no mass. Tenderness: There is no abdominal tenderness. There is no guarding or rebound. Hernia: No hernia is present. Musculoskeletal: General: No tenderness. Normal range of motion. Cervical back: Normal range of motion and neck supple. Lymphadenopathy: Cervical: No cervical adenopathy. Skin: General: Skin is warm and dry. Capillary Refill: Capillary refill takes less than 2 seconds. Findings: No rash. Neurological: Mental Status: He is alert and oriented to person, place, and time. Deep Tendon Reflexes: Reflexes are normal and symmetric. Psychiatric: Mood and Affect: Mood normal. Behavior: Behavior normal. Thought Content: Thought content normal. Judgment: Judgment normal. ASSESSMENT/PLAN: Jennifer was seen today for new patient. Diagnoses and all orders for this visit: Positive CATHY (antinuclear antibody) - CATHY Screen w/ Reflex; Future - Erythrocyte Sedimentation Rate (ESR); Future - Rheumatoid factor; Future - Uric acid; Future - CBC auto differential; Future - Comprehensive metabolic panel; Future - predniSONE (DELTASONE) 20 mg tablet; Take 1 tablet (20 mg total) by mouth See Admin Instructions. 1 tab 2x daily x3 days, 1 tab daily x3 days, 1/2 tablet daily x4 days - Ambulatory referral to Rheumatology (Non-[facility]); Future Pain in other joint - CATHY Screen w/ Reflex; Future - Erythrocyte Sedimentation Rate (ESR); Future - Rheumatoid factor; Future - Uric acid; Future - CBC auto differential; Future - Comprehensive metabolic panel; Future - predniSONE (DELTASONE) 20 mg tablet; Take 1 tablet (20 mg total) by mouth See Admin Instructions. 1 tab 2x daily x3 days, 1 tab daily x3 days, 1/2 tablet daily x4 days - ibuprofen (MOTRIN) 800 mg tablet; Take 1 tablet (800 mg total) by mouth every 8 (eight) hours as needed for pain. Take with food - Ambulatory referral to Rheumatology (Non-[facility]); Future Joint swelling - predniSONE (DELTASONE) 20 mg tablet; Take 1 tablet (20 mg total) by mouth See Admin Instructions. 1 tab 2x daily x3 days, 1 tab daily x3 days, 1/2 tablet daily x4 days - Ambulatory referral to Rheumatology (Non[facility]); Future Screening for diabetes mellitus (DM) - Hemoglobin A1c; Future Body mass index is 48.24 kg/m . Patient noted to have elevated BMI and the following intervention(s) were applied: Discussed current weight today. Consider healthy food choices, portion control. Avoid sugary beverages and high concentrated sweets. Routine exercise regimen encouraged. Depression: At risk (12/30/2023) PHQ-2 PHQ-2 Score: 7 Discussed depression scoring today. He does have days of sadness but this is due to his overall health. He is also going through a divorce as well. We did discuss medications today, he has declined. Positive CATHY Suspect lupus as previously discussed 3 years ago. He did not go to referral to see rheumatology due to lack of insurance coverage. He has been experiencing classic butterfly rash on face and increased multiple joint pain. Start Prednisone taper as directed Recheck CATHY, RA, uric acid, SED, CMP, CBC Check A1c, screening for DM ALL QUESTIONS ANSWERED Total time spent was 45 minutes: Preparing to see the patient (e.g., review of tests) Obtaining and/or reviewing separately obtained history Performing a medically appropriate examination and/or evaluation Counseling and educating the patient/family/caregiver Ordering medications, tests, or procedures Follow-up: Annual physical ANDRESSA Guzman 12/30/23 1634 documented in this encounter [facility] [employer] [facility] Evaluation note No assessment inform ation available [facility] Work Phone: Evaluation note Diagnosis Paresthesia- Primary Disturbance of skin sensation [facility] Diagnosis Neck pain- Primary Cervicalgia Chronic midline low back pain without sciatica Multiple joint pain Pain in joint, multiple sites Paresthesia Disturbance of skin sensation [facility] Diagnosis Neck pain- Primary Cervicalgia Chronic midline low back pain without sciatica Multiple joint pain Pain in joint, multiple sites Paresthesia Disturbance of skin sensation [facility] Diagnosis 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 [facility]* Diagnosis Neck pain- Primary Cervicalgia Paresthesias Disturbance of skin sensation Bilateral carpal tunnel syndrome Carpal tunnel syndrome Ulnar neuropathy of both upper extremities [facility] Diagnosis Neck pain- Primary Cervicalgia Chronic midline low back pain without sciatica Multiple joint pain Pain in joint, multiple sites Paresthesia Disturbance of skin sensation [facility] Diagnosis Neck pain- Primary Cervicalgia Chronic midline low back pain without sciatica Multiple joint pain Pain in joint, multiple sites Paresthesia Disturbance of skin sensation [facility] Diagnosis Paresthesia of hand, bilateral- Primary Polyarthralgia Pain in joint, multiple sites Neck pain Cervicalgia [facility]* Diagnosis Neck pain- Primary Cervicalgia Chronic midline low back pain without sciatica [facility] Diagnosis Neck pain- Primary Cervicalgia Chronic midline low back pain without sciatica Multiple joint pain Pain in joint, multiple sites Paresthesia Disturbance of skin sensation [facility] Diagnosis Neck pain- Primary Cervicalgia Chronic midline low back pain without sciatica Multiple joint pain Pain in joint, multiple sites Paresthesia Disturbance of skin sensation [facility]* Diagnosis Neck pain- Primary Cervicalgia Chronic midline low back pain without sciatica Multiple joint pain Pain in joint, multiple sites Paresthesia Disturbance of skin sensation [facility] Diagnosis Positive CATHY (antinuclear antibody)- Primary Other and unspecified nonspecific immunological findings Pain in other joint Joint swelling Effusion of joint, site unspecified Screening for diabetes mellitus (DM) Screening for diabetes mellitus [facility] Diagnosis Annual physical exam- Primary Routine general medical examination at a health care facility Blood tests for routine general physical examination Laboratory examination ordered as part of a routine general medical examination Encounter for screening for malignant neoplasm of prostate Special screening for malignant neoplasm of colon Special screening for malignant neoplasms, colon [facility] Diagnosis Chronic pain syndrome- Primary Pain in joints Pain in joint, multiple sites [facility] Diagnosis Enlarged lymph node in neck- Primary Ganglion cyst of tendon sheath of left hand [facility] Attachments The following attachments cannot be sent through Care Everywhere. * Swollen Joints ([place]) [facility] Attachments The following attachments cannot be sent through Care Everywhere. * Yearly Physical for Adults ([place]) [facility] Attachments The following attachments cannot be sent through Care Everywhere. * Joint Pain ([place]) [facility] Attachments The following attachments cannot be sent through Care Everywhere. * Ganglion cyst ([place]) [facility] (narrative)* Consultation (Routine) - Pending Review Specialty Diagnoses / Procedures Referred By Andriy lambert Referred To Contact Rheumatology Diagnoses Positive CATHY (antinuclear antibody) Pain in other joint Joint swelling Rosa Isela Haskins APRN-[employer] [address] [place] [address] Pa San MD [address] [place] [address] Referral ID Status Reason Start Date Expiration Date Visits Requested Visits Authorized [id number] Pending Review Specialty Services Required 12/30/2023 12/29/2024 1 1 [facility] for referral (narrative)* Consultation (Routine) - Pending Review Specialty Diagnoses / Procedures Referred By Andriy lambert Referred To Contact Neurology Diagnoses Pain in joints Rosa Isela Haskins APRN-[employer] [address] [place] [address] David Watts MD [address] [address] Referral ID Status Reason Start Date Expiration Date Visits Requested Visits Authorized [id number] Pending Review Specialty Services Required 05/10/2024 05/10/2025 1 1 [facility]* Consultation (Routine) - Closed Specialty Diagnoses / Procedures Referred By Contac t Referred To Contact Neurology Diagnoses Pain in unspecified joint Procedures AL OFFICE/OUTPATIENT NEW LOW MDM 30 MINUTES Rosa Isela Haskins CRNP [address] [facility] [place] [address] Phone: tel: fax: David Watts MD [address] [place] [address] Phone: tel: fax: Referral ID Status Reason Start Date Expiration Date V isits Requested Visits Authorized [id number] Closed Consult and Treat 05/12/2024 11/08/2024 1 1 [facility]* Rehabilitation - Outpatient (Routine) - Authorized Specialty Diagnoses / Procedures Referred By Contac t Referred To Contact Physical Therapy Diagnoses Paresthesia Procedures AL OFFICE/OUTPATIENT NEW HIGH MDM 60 MINUTES Aniceto Casarez DO [address] [place] [address] Phone: tel: fax: Ludy Crowley, PT [address] [place] [address] Phone: tel: fax: Referral ID Status Reason Start Date Expiration Date Visits Requested Visits Authorized [id number] Authorized Specialty Services Required 06/09/2024 12/06/2024 30 30 [facility]* Rehabilitation - Outpatient (Routine) - Authorized Specialty Diagnoses / Procedures Referred By Contac t Referred To Contact Physical Therapy Diagnoses Paresthesia Procedures AL OFFICE/OUTPATIENT NEW HIGH MDM 60 MINUTES Aniceto Casarez DO [address] [place] [address] Phone: tel: fax: Ludy Crowley, PT [address] [place] [address] Phone: tel: fax: Referral ID Status Reason Start Date Expiration Date Visits Requested Visits Authorized [id number] Authorized Specialty Services Required 06/09/2024 08/02/2024 30 30 [facility] N[facility]* Rehabilitation - Outpatient (Routine) - Authorized Specialty Diagnoses / Procedures Referred By Andriy lambert Referred To Contact Physical Therapy Diagnoses Paresthesia of skin Procedures AL THERAPEUTIC PX 1/> AREAS EACH 15 MIN EXERCISES Aniceto Casarez DO [address] [place] [address] Phone: tel: fax: Ludy Crowley, PT [address] [place] [address] Phone: tel: fax: Referral ID Status Reason Start Date Expiration Date V isits Requested Visits Authorized [id number] Authorized 08/03/2024 08/02/2025 23 23 [facility] Healthcare Summary Purpose Family History No Family History Records FoundNo Family History Records FoundNo Family History Records FoundNo Family History Records FoundNo Family History Records Found Advance Directives No Advanced Directives Records FoundNo Advanced Directives Records FoundNo Advanced Directives Records FoundNo Advanced Directives Records FoundNo Advanced Directives Records Found Additional Source Comments (unrecognized sect ion and content) No Status Records FoundNo Status Records FoundNo Status Records FoundNo Status Records FoundNo Status Records Found INFORMATION SOURCE (unrecogn ized section and content) DATE CREATED AUTHOR 02/02/2024 [facility] DATE CREATED AUTHOR AUTHOR'S ORGANIZ ATION 03/31/2024 [facility] DATE CREATED AUTHOR AUTHOR'S ORGANIZ ATION 10/06/2024 [facility] EPIC DATE CREATED AUTHOR AUTHOR'S ORGANIZ ATION 10/21/2024 [facility] DATE CREATED AUTHOR AUTHOR'S ORGANIZ ATION 11/06/2024 [facility] Care Teams (unrecognized sec tion and content) Team Status: Inactive Member Role Status Dates Pa San MD Attending Provider Active St art: March 17, 2024 End: March 17, 2024 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 Start Date End Date Rosa Isela Haskins CRNP [address] [place] [address] Referring Physician Nurse Practitioner 05/13/24 Aniceto Casarez DO [address] [address] Referring Physician Neurology 06/09/24 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 Start Date End Date Rosa Isela Haskins CRNP [address] [place] [address] Referring Physician Nurse Practitioner 05/13/24 Aniceto Casarez DO [address] [address] Referring Physician Neurology 06/09/24 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 Start Date End Date Rosa Isela Haskins CRNP [address] [place] [address] Referring Physician Nurse Practitioner 05/13/24 Aniceto Casarez DO [address] [address] Referring Physician Neurology 06/09/24 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 Start Date End Date Rosa Isela Haskins CRNP [address] [place] [address] Referring Physician Nurse Practitioner 05/13/24 Aniceto Casarez DO [address] [address] Referring Physician Neurology 06/09/24 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 Start Date End Date Rosa Isela Haskins CRNP [address] [place] [address] Referring Physician Nurse Practitioner 05/13/24 Aniceto Casarez DO [address] [place] [phone] Referring Physician Neurology 06/09/24 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 Start Date End Date Rosa Isela Haskins CRNP [address] [place] [address] Referring Physician Nurse Practitioner 05/13/24 Aniceto Casarez DO [address] [place] [phone] Referring Physician Neurology 06/09/24 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 Start Date End Date Rosa Isela Haskins CRNP [address] [place] [address] Referring Physician Nurse Practitioner 05/13/24 Aniceto Casarez DO [address] [place] [phone] Referring Physician Neurology 06/09/24 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 Start Date End Date Rosa Isela Haskins CRNP [address] [place] [address] Referring Physician Nurse Practitioner 05/13/24 Aniceto Casarez DO [address] [address] Referring Physician Neurology 06/09/24 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 Start Date End Date Rosa Isela Haskins CRNP [address] [place] [address] Referring Physician Nurse Practitioner 05/13/24 Aniceto Casarez DO [address] [place] [phone] Referring Physician Neurology 06/09/24 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 Start Date End Date Rosa Isela Haskins CRNP [address] [place] [address] Referring Physician Nurse Practitioner 05/13/24 Aniceto Casarez DO [address] [address] Referring Physician Neurology 06/09/24 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 Start Date End Date Rosa Isela Haskins CRNP [address] [place] [address] Referring Physician Nurse Practitioner 05/13/24 Aniceto Casarez DO [address] [address] Referring Physician Neurology 06/09/24 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 Start Date End Date Rosa Isela Haskins CRNP [address] [place] [address] Referring Physician Nurse Practitioner 05/13/24 Aniceto Casarez DO [address] [address] Referring Physician Neurology 06/09/24 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 Start Date End Date Rosa Isela Haskins CRNP [address] [place] [address] Referring Physician Nurse Practitioner 05/13/24 Aniceto Casarez DO [address] [address] Referring Physician Neurology 06/09/24 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 Start Date End Date Rosa Isela Haskins CRNP [address] [place] [address] Referring Physician Nurse Practitioner 05/13/24 Aniceto Casarez DO [address] [address] Referring Physician Neurology 06/09/24 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 Start Date End Date Rosa Isela Haskins CRNP [address] [place] [address] Referring Physician Nurse Practitioner 05/13/24 Aniceto Casarez DO [address] [address] Referring Physician Neurology 06/09/24 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 Start Date End Date Rosa Isela Haskins CRNP [address] [place] [address] Referring Physician Nurse Practitioner 05/13/24 Aniceto Casarez DO [address] [address] Referring Physician Neurology 06/09/24 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 Start Date End Date Rosa Isela Haskins CRNP [address] [place] [address] Referring Physician Nurse Practitioner 05/13/24 Aniceto Casarez DO [address] [address] Referring Physician Neurology 06/09/24 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 Start Date End Date Rosa Isela Hsakins CRNP [address] [place] [address] Referring Physician Nurse Practitioner 05/13/24 Aniceto Casarez DO [address] [address] Referring Physician Neurology 06/09/24 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 Start Date End Date Rosa Isela Haskins CRNP [address] [place] [address] Referring Physician Nurse Practitioner 05/13/24 Aniceto Casarez DO [address] [address] Referring Physician Neurology 06/09/24 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 Start Date End Date Rosa Isela Haskins CRNP [address] [place] [address] Referring Physician Nurse Practitioner 05/13/24 Aniceto Casarez DO [address] [place] [address] Referring Physician Neurology 06/09/24 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 Start Date End Date Rosa Isela Haskins [facility] [address] [place] [address] PCP - General Family Medicine 11/27/20 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 Start Date End Date Rosa Isela Haskins [facility] [address] [place] [address] PCP - General Family Medicine 11/27/20 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 Start Date End Date Rosa Isela Haskins [facility] [address] [place] [address] PCP - General Family Medicine 11/27/20 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 Start Date End Date Rosa Isela Haskins CRNP [address] [place] [address] Referring Physician Nurse Practitioner 05/13/24 Aniceto Casarez DO [address] [place] [address] Referring Physician Neurology 06/09/24 Goals (unrecognized section and content) Goals may be documented in a n alternate sectionNot on filedocumented as of this encounterNot on filedocumented as of this encounterNot on filedocumented as of this encounterNot on filedocumented as of this encounter Reason for Visit (unrecogniz ed section and content) Reason Comments Neck Pain Reason Comments Pain Specialty Diagnoses / Procedures Referred By Andriy t Referred To Contact Orthopaedic Surgery Diagnoses Ulnar neuropathy of both upper extremities Lisbeth Grimes, AIDAN [address] [place] [address] Phone: tel: Jr. Carson James, DO [address] [place] [address] Phone: tel: fax: Referral ID Status Reason Start Date Expiration Date V isits Requested Visits Authorized [id number] Closed Consult and Treat 07/06/2024 01/02/2025 1 1 Reason Comments New Patient Reason Comments Annual Exam Reason Comments pain in the joints- pain scale 6 Reason Comments lump on hand / go over results FOR RECORDS PERTAINING TO PATIENTS WHO ARE OR HAVE BEEN ENROLLED IN A CHEMICAL DEPENDENCY/SUBSTANCEABUSE PROGRAM, SOME INFORMATION MAY BE OMITTED. This clinical summary was aggregated from multiple sources. Caution should be exercised in using it in the provision of clinical care. This summary normalizes information from multiple sources, and as a consequence, information in this document may materially change the coding, format and clinical context of patient data. In addition, data may be omitted in some cases. CLINICAL DECISIONS SHOULD BE BASED ON THE PRIMARY CLINICAL RECORDS. [employer] provides no warranty or guarantee of the accuracy or completeness of information in this document.
[2024-11-14 06:59] VITALS: BP 130/70; PULSE 92; TEMP 36.7; O2SAT 93
[2024-11-14 07:36] VITALS: BP 145/93; BP 149/91; PULSE 90; O2SAT 96; O2SAT 97
[2024-11-14] MEDS: BUPIVACAINE HCL 0.25% PF 25 MG/10 ML VIAL 6 ML INJ (07:38)
[2024-11-14] MEDS: LIDOCAINE HCL 2% 400 MG/20 ML MDV INJ (07:39)
--- NOTE | 2024-11-14 07:42 | W.PM.PROCNOT ---
Date of procedure: 11/14/24 Pre-op diagnosis: Pain due to cervical spondylosis without myelopathy Post-op diagnosis: same as pre-op Procedure: Procedure: Bilateral C4-5, 5-6 medial branch block Medications: Bupivacaine 0.25% 6cc The patient was seen and examined in the preoperative holding area.? The informed consent was obtained and placed on the chart.? The patient was brought to the medical procedure unit and placed in the prone position.? A timeout was completed verifying correct patient, procedure site, positioning, plan, and special equipment.? Using aseptic technique, the needle was placed at left C4.? Under direct fluoroscopic visualization, a Quincke tip needle was advanced to the midpoint of the waist of the articular pillar at the respective medial branch segment. The above-mentioned injectate was placed in a 1 mL aliquot proceeded by negative aspiration.? The needle was removed.? The procedure was completed at all left C5, 6. The same procedure, at the same levels, was then completed on the right side. Insertion site was covered.? Patient was taken to the postprocedural recovery area and monitored for an appropriate length of time before found suitable for discharge in the accompaniment of a responsible adult. Anesthesia: Local Surgeon: Frank Bah Pathology: none sent Condition: stable Disposition: no change
== END 2024-11-14 07:47 | disposition home or self-care (01) ==
LOC: SURGOUT 06:34
PROVIDERS: PCP Nurse Practitioner; Visit Provider Anesthesiology
DX: M47.812 Spondylosis without myelopathy or radiculopathy, cervical region (principal); M54.2 Cervicalgia
CPT/HCPCS: 64490; 64491; J0665

== ENCOUNTER 2024-11-16 13:44 | Outpatient (OUT) | payer OTHER, SELFPAY ==
--- NOTE | 2024-11-16 14:20 | P.CN_ITS ---
Consult Note: HPI Data of Consult Patient: known to practice within the last 3 years Requesting Physician: Annie Kerr NP Primary Care Provider: ROSA ISELA FRY Consult Narrative Reason for consult: neck and back/BLE pain Narrative: Son Dumas a 59 year old male presents for evaluation of chronic neck and low back with BLE pain. pt completed 6 weeks of PT without improvement in pain, has failed to benefit from heat, ice, tylenol, nsaids. currently utilizing zonegran 50mg HS, cannot tolerate higher doses due to CLEMENS, and baclofen 5-10mg BID PRN pain/spasms. pain in neck 2/10 increasing to 10/10 with activity and ROM, pain in low back and BLE 8/10 increasing to 10/10 with standing and walking. Pt recently underwent bilateral C4-5 C5-6 MBB #1 with >80% improvement in neck pain for a few hours after the injection, preop pain up to 10/10 post op pain 1/10. cc:: CC: Annie Kerr NP Review of Systems ROS Status of ROS 10 or more systems reviewed and unremark able except as noted in history and below Musculoskeletal Reports: back pain, neck pain and extremity pain PFSH PFSH Medical History Low back pain ?M54.50 - Low back pain, unspecified (ICD-10) Neck pain ?M54.2 - Cervicalgia (ICD-10) Obesity ?E66.9 - Obesity, unspecified (ICD-10) Hypertension ?I10 - Essential (primary) hypertension (ICD-10) Smoker ?F17.200 - Nicotine dependence, unspecified, uncomplicated (ICD-10) Meds Home Medications and Allergies Home Medications ?Medication ?Instructions ?Recorded ?Confirmed ?Type baclofen 10 mg tablet 10 mg PO BID PRN muscle spasm 10/18/24 11/14/24 History zonisamide 100 mg capsule 100 mg PO .hs 10/18/24 11/14/24 History (Zonegran) Allergies Allergy/AdvReac Type Severity Reaction Status Date / Time bees Allergy Mild Unknown Uncoded 10/18/24 08:02 Exam Constitutional Documenting provider has reviewed patient's vital signs: yes Common normals: no apparent distress, oriented x3, healthy appearing, alert and well nourished General appearance: cooperative HENMT Common normals: normocephalic, hearing grossly normal bilaterally and moist oral mucous membranes Head and scalp: normocephalic Eye Common normals: PERRL Pupil: PERRL Neck & C-Spine Common normals: full ROM General: normal visual inspection Cervical spine: cervical ROM abnormal, pain with cervical ROM and cervical spine tenderness C4, C5 and C6 Other: negative spurlings sensation intact BUE strength 5/5 in BUE Chest Common normals: inspection of chest normal Respiratory Common normals: normal respiratory effort, no retractions and no use of accessory muscles Back & Pelvis Lumbar spine/lower back: ROM limited, pain with ROM, straight leg raise positive right and straight leg raise positive left Other: increased low back and BLE pain with standing and walking, improved with forward flexion decreased sensation bilateral L4,5,S1 strength 4/5 in BLE Neuro Common normals: oriented x3 Sensorium/orientation: alert Psych Common normals: mental status grossly normal, thought process normal, cooperative, affect normal, speech normal and activity/motor behavior normal Speech: normal speech Thought process: normal thought process Results Additional Findings Additional findings: If on a controlled substance or opioids, I have checked an [place]AR[place] report on this patient and there are no aberrancies noted in the prescribing history.??If on a controlled substance or opioid a drug screen was completed and reviewed within the last year, and if there has not been a drug screen completed we ordered one today to monitor higher risk, state monitored pain medication use. As part of providing excellent, safe, comprehensive care, the following was completed at our patient's visit: 1. A medication reconciliation and review to ensure accurate knowledge of current/active medications, including asking our patients to inform us about any wbqm-[id number] medications or herbal remedies/nutritional supplements/alternative remedies. 2. A review to specifically ensure our patients have had annual screening for screening for depression, screening for tobacco use, and screening for unhealthy alcohol use. For concerning screenings had a discussion with the patient, provided patient education, and recommended follow-up with primary care provider when appropriate. If patient noted with a risk of falling, they received education on strength, gait, and balance training to prevent future risk of falling. Portions of this note may have been carried over from the previous visit and updated as appropriate. Please note this office utilizes paper charting in addition to the electronic medical record. A list of current medications, vitals, and PMH is available there as the clinical staff outside of myself do not have access to [employer] charting during the clinic day operations. As part of providing quality comprehensive care the current medications, vitals, and PMH were reviewed in the paper chart. Assessment and Plan Assessment and Plan (1) Cervical spondylosis: (2) Lumbar stenosis with neurogenic claudication: Plan The patient has had over 3 months of moderate to severe axial facet mediated neck pain and bilateral low back and LE pain with functional impairment and inadequate response to conservative care including NSAIDS (unless there are contraindication such as concurrent blood thinners), multiple oral or topical pain medications, and home exercise program/physical therapy.? Patient has completed >6 weeks of guided home exercise program and/or formal physical therapy program without relief of their symptoms.? I have reviewed the imaging of the cervical spine and lumbar spine and no red flags were identified.? The imaging reveals radiographic findings consistent with facet arthropathy of the cervical spine and multilevel spondylosis and stenosis on lumbar MRI The Oswestry Disability Index was completed, and the patient scored a 53%.? The patient noted the following:?? moderate to severe pain with standing, sitting, walking, sleep, social life, and travel We discussed the risks and benefits of the procedure with the patient, and we are NOT planning on using sedation as outlined in the guidelines from Medicare unless there is a documented reason that sedation would be strongly recommended.?? ?The procedure will be completed with fluoroscopic guidance.? bilateral C4-5 C5-6 MBB #2 working towards RFA bilateral L5-S1 TFESI under fluoroscopy, may need to consider bilateral L4/5 TFESI as well based on MRI findings continue current medications f/u after each MBB and 2 weeks after TFESI
== END 2024-11-16 13:45 | disposition home or self-care (01) ==
LOC: PM 13:44
PROVIDERS: PCP Nurse Practitioner; Visit Provider Nurse Practitioner
DX: M47.812 Spondylosis without myelopathy or radiculopathy, cervical region (principal); M48.062 Spinal stenosis, lumbar region with neurogenic claudication
CPT/HCPCS: G0463

== ENCOUNTER 2024-12-12 09:37 | Day surgery (SDC) | payer OTHER, SELFPAY ==
[2024-12-12 09:57] VITALS: BP 147/98; PULSE 79; TEMP 36.5; O2SAT 94
[2024-12-12 10:33] VITALS: BP 146/92; BP 149/93; PULSE 76; O2SAT 97
[2024-12-12 10:34] VITALS: PULSE 79; O2SAT 97
[2024-12-12] MEDS: LIDOCAINE HCL 2% 400 MG/20 ML MDV 3 ML INJ (10:40)
[2024-12-12] MEDS: IOHEXOL 240 MG/ML - 10 ML VIAL 24 MG INJ (10:40)
[2024-12-12] MEDS: BUPIVACAINE HCL 0.25% PF 25 MG/10 ML VIAL INJ (10:40)
[2024-12-12] MEDS: 0.9 % SODIUM CHLORIDE 10 ML SYRINGE - SALINE FLUSH INJ (10:40)
[2024-12-12] MEDS: METHYLPREDNISOLONE ACETATE 80 MG/ML VIAL INJ (10:41)
--- NOTE | 2024-12-12 10:41 | W.PM.PROCNOT ---
Date of procedure: 12/12/24 Pre-op diagnosis: Pain due to lumbar stenosis with neurogenic claudication Post-op diagnosis: same as pre-op Procedure: Procedure: Bilateral L5-S1 transforaminal epidural steroid injection Medications: Bupivacaine 0.25% 2cc, lidocaine 2% 1cc, depomedrol 80mg The patient was seen and examined in the preoperative holding area.? Informed consent was obtained and placed on the chart.? Patient was brought to the medical procedure unit and placed in the prone position where a timeout was completed verifying the correct patient, procedure site, position, and planned special equipment using sterile aseptic technique.? Under direct fluoroscopic visualization a 25-gauge Quincke tipped spinal needle was advanced at level left L5-S1 to the designated neural foramen where contrast dye was injected to show adequate spread.? There was no evidence of vascular or adverse uptake.? Epidural spread was appreciated.? The above-mentioned injectate was then placed in a 1.5 mL aliquot preceded by negative aspiration.? The needle was removed. The same procedure, at the same level, was completed on the opposite side. ? Patient was taken to the postprocedural recovery area and monitored for an appropriate length of time before found suitable for discharge in the accompaniment of a responsible adult. Anesthesia: Local Surgeon: Frank Bah Pathology: none sent Condition: stable Disposition: no change
== END 2024-12-12 10:43 | disposition home or self-care (01) ==
LOC: SURGOUT 09:38
PROVIDERS: PCP Nurse Practitioner; Visit Provider Anesthesiology
DX: M48.062 Spinal stenosis, lumbar region with neurogenic claudication (principal); M54.50 Low back pain, unspecified
CPT/HCPCS: 64483; J0665; J1010; Q9966

== ENCOUNTER 2025-01-02 08:21 | Day surgery (SDC) | payer OTHER, SELFPAY ==
--- OUTSIDE RECORDS SUMMARY | 2025-01-02 08:23 | XMS_ITS | Encounter Summary ---
Author Organization [employer] Address [id number] [address] [place] [address] Care Team Providers Care Software Design Analyst Name Role Phone Margy Haskins DIGITAL MEDIA DIRECTOR-ENVIRONMENTAL ENGINEERING ASSISTANT Primary Care Provid er Encounter Details Date Type Department Care Team (Late st Contact Info) Description 10/20/2024 Orders Only [facility] - Family Medicine [address] [place] [phone] Ref Prov, [place] [address] Social History Tobacco Use Types Packs/Day Years Used Date Smoking Tobacco: Former Cigarettes Smokeless Tobacco: Current Chew Alcohol Use Standard Drinks/Week Comments Yes 24 (1 standard drink = 0.6 oz pu re alcohol) weekly PHQ-2 Answer Date Recorded Total Score 0 10/19/2024 Childcare Answer Date Recorded Childcare Unknown 01/12/2019 Employment Answer Date Recorded Employment Unknown 01/12/2019 Hunger Screening Answer Date Recorded Within the past 12 months we worried whether our food would run out before we got money to buy more. Never True 10/19/2024 Within the past 12 months th e food we bought just didn't last and we didn't have money to get more. Never True 10/19/2024 Sex and Gender Information Value Date Recorded Sex Assigned at Not on file Legal Sex Male 11:31 AM EDT Gender Identity Not on file Sexual Orientation Not on file documented as of this encounter Plan of Treatment Not on file documented as of this encounter Procedures Procedure Name Priority Date/Time Associated Diagnosis Comments XR SPINE CERVICAL 3 VWS OR LESS Routine 10/17/2024 10:27 AM EDT documented in this encounter Results * X-ray spine cervical 3 views or less (10/17/2024 10:27 AM EDT) Anatomical Region Laterality Modality MSK, Neuro, Spine, C-spine N/A Compu ameya Radiography us Not In System Ref Prov IMG DIAGNOSTIC IMAGING OR DERABLES Final Result documented in this encounter Visit Diagnoses Not on filedocumented in this encounter Additional Health Concerns Assessment Noted Time PHQ-9 Depression Total Score: 0 10/20/19 25 10:52 AM EDT A Body Mass Index follow-up plan has been documented for the patient 10/19/2024 12:51 PM EDT documented as of this encounter Care Teams Software Design Analyst Relationship Specialty Start Date End Date Margy Haskins, DIGITAL MEDIA DIRECTOR-ENVIRONMENTAL ENGINEERING ASSISTANT [address] [place] [address] PCP - General Family Medicine 11/27/20 documented as of this encounter
--- OUTSIDE RECORDS SUMMARY | 2025-01-02 08:23 | XMS_ITS | Encounter Summary ---
Author Organization [employer] Address [id number] [address] [place] [address] Care Team Providers Care Child Care Centre Director Name Role Phone Margy Haskins Primary Care Provid er Encounter Details Date Type Department Care Team (Late st Contact Info) Description 02/02/2024 Telephone [facility] - Family Medicine [address] [place] [phone] Gabriela Vuong CMA Social History Tobacco Use Types Packs/Day Years Used Date Smoking Tobacco: Former Cigarettes Smokeless Tobacco: Current Chew Alcohol Use Standard Drinks/Week Comments Yes 24 (1 standard drink = 0.6 oz pu re alcohol) weekly PHQ-2 Answer Date Recorded Total Score 0 02/01/2024 Childcare Answer Date Recorded Childcare Unknown 01/12/2019 Employment Answer Date Recorded Employment Unknown 01/12/2019 Hunger Screening Answer Date Recorded Within the past 12 months we worried whether our food would run out before we got money to buy more. Never True 02/01/2024 Within the past 12 months th e food we bought just didn't last and we didn't have money to get more. Never True 02/01/2024 Sex and Gender Information Value Date Recorded Sex Assigned at Not on file Legal Sex Male 11:31 AM EDT Gender Identity Not on file Sexual Orientation Not on file documented as of this encounter Miscellaneous Notes * Telephone Encounter - Gabriela Vuong CMA - 02/02/2024 8:07 AM EDT ----- Message from ANDRESSA Martin sent at 02/02/2024 7:33 AM EDT ----- Reviewed. Inform patient PSA (screening for prostate cancer) and lipid panel are normal. documented in this encounter Plan of Treatment Not on file documented as of this encounter Visit Diagnoses Not on filedocumented in this encounter Additional Health Concerns Assessment Noted Time PHQ-9 Depression Total Score: 0 02/01/20 24 4:05 PM EDT A Body Mass Index follow-up plan has been documented for the patient 02/01/2024 4:54 PM EDT documented as of this encounter Care Teams Child Care Centre Director Relationship Specialty Start Date End Date Margy Haskins, MOLECULAR BIOLOGY SCIENTIST-WHARF LABORER [address] [place] [address] PCP - General Family Medicine 11/27/20 documented as of this encounter
--- OUTSIDE RECORDS SUMMARY | 2025-01-02 08:23 | XMS_ITS | Clinical Summary ---
Author Organization [facility] [employer] [facility] tem Address [id number] [address] [place] [address] Care Team Providers Care Carrot Grader Inspector Name Role Phone Margy Haskins DECAL CUTTER-DRAFTER LANDSCAPE Primary Care Provid er Allergies Active Allergy Reactions Criticality Noted Date Comments Bee Venom Protein (Honey Bee) Shortness Of Breath,Swelling High 11/26/2020 Medications No known medications Active Problems No known active problems Encounters Date Type Department Care Team Description 11/03/2024 9:58 AM EDT - 11/03/2024 11:59 PM EDT Hospital Encounter [facility] - CT Imaging [address] [place] [address] Enlarged lymph node in neck Discharge Disposition: Home 11/03/2024 9:31 AM EDT - 11/03/2024 9:57 AM EDT Hospital Encounter [facility] - MRI Imaging [address] [facility] [place] [address] Lumbosacral radiculopathy; Low back pain at multiple sites Discharge Disposition: Home 11/03/2024 Travel 10/20/2024 [facility] [address] [place] [address] Ref Prov, Not In System 10/19/2024 11:00 AM EDT [facility] [address] [place] [address] Margy Haskins, DECAL CUTTER-DRAFTER LANDSCAPE Enlarged lymph node in neck (Primary Dx); Ganglion cyst of tendon sheath of left hand 10/19/2024 Travel 10/06/2024 Orders Only [facility] - [facility] [address] [facility] [place] [address] Ref Prov, Not In System from Last 3 Months Immunizations No known immunizations Family History Medical History Relation Name Comments Lung cancer Brother Lung cancer Father Lung cancer Mother Relation Name Status Comments Brother Father Mother Sister Alive Social History Tobacco Use Types Packs/Day Years Used Date Smoking Tobacco: Former Cigarettes Smokeless Tobacco: Current Chew Tobacco Cessation:Ready to Q uit: Not Asked; Counseling Given: Not Answered Alcohol Use Standard Drinks/Week Comments Yes 24 [...] on file Sexual Orientation Not on file Last Filed Vital Signs Vital Sign Reading Time Taken Comments Blood Pressure 100/70 10/19/2024 10:53 AM EDT Pulse 77 10/19/2024 10:53 AM EDT Temperature 36.9 C (98.5 F) 10/19/2024 10:53 AM EDT Respiratory Rate 18 10/19/2024 10:5 3 AM EDT Oxygen Saturation 98% 10/19/2024 10: 53 AM EDT Inhaled Oxygen Concentration - - Weight 157.7 kg (347 lb 9.6 oz) 025 10:53 AM EDT Height 182.9 cm (6') 10/19/2024 10:53 AM EDT Body Mass Index 47.14 10/19/2024 10:53 AM EDT Plan of Treatment Health Maintenance Due Date Last Done Comments Tobacco Counseling 1966 DTaP,Tdap and Td Vaccines (1 - Tdap) 1985 Colonoscopy 2011 Zoster (Shingles) Vaccine (1 of 2) 2016 Influenza Vaccine 04/03/2025 Adult BMI Follow Up Plan 10/19/2025 10/19/2024 Adult BMI Screening 10/19/2025 10/19/2024 Depression Screening 10/19/2025 10/19/2024 Tobacco Screening 10/19/2025 10/19/2024 Medical Devices Not on file Procedures Procedure Name Priority Date/Time Associated Diagnosis Comments CT NECK SOFT TISSUE WO CONT Routine 11/03/2024 10:04 AM EDT Enlarged lymph node in neck MR LUMBAR SPINE WO CONT Routine 11/03/2024 9:58 AM EDT Lumbosacral radiculopathy Low back pain at multiple sites XR SPINE CERVICAL 3 VWS OR LESS Routine 10/17/2024 10:27 AM EDT from Last 3 Months Results * CT neck soft tissue without contrast (11/03/2024 10:04 AM EDT) Anatomical Region Laterality Modality Neuro, Neck, Neuro Covera N/A Comput ed Tomography 11/06/2024 2:14 AM EDT Narrative 11/06/2024 6:08 AM EDT EXAM: CT NECK WITHOUT CONTRAST CLINICAL INFORMATION: [...] Ole Richardson MD on 11/06/2024 6:08 AM Procedure Note Ole Richardson MD - 11/06/2024 EXAM: CT NECK WITHOUT CONTRAST CLINICAL INFORMATION: Enlarged lymph node in neck. TECHNIQUE: CT neck without contrast was performed utilizing 5 mm axialreconstructions. Coronal and sagittal reformatted images were obtained andreviewed. Automated exposure control was utilized. COMPARISON: MRI of the cervical spine dated 09/23/2024 FINDINGS: There is symmetric soft tissue fullness in the vallecula, most compatiblewith reactive lingual tonsils. The mucosal and submucosal spaces of theneck are otherwise unremarkable. There are scattered relatively symmetricnon and borderline enlarged lymph nodes on both sides of the neck. Theseare suspected reactive. No pathologically enlarged lymph nodes are identified.There is no evidence for a mass in the neck. The thyroid gland isunremarkable. The parotid and submandibular glands are symmetric andunremarkable. The carotid arteries and jugular veins are unremarkable. Thelimited visualized intracranial contents are unremarkable. The visualizedparanasal sinuses and mastoids are clear and well aerated. The limitedvisualized lung apices are unremarkable. IMPRESSION: 1. Scattered relatively symmetric non and borderline enlarged lymph nodeson both sides of the neck, suspected reactive. No pathologically enlargedlymph nodes or masses are identified within the neck. 2. Soft tissue fullness in the vallecula, suspected reactive lingualtonsils. All CT scans at this facility use dose modulation, iterativereconstruction, and/or weight based dosing when appropriate to reduceradiation dose to as low as reasonably achievable. Finalized by Ole Richardson MD on 11/06/2024 6:08 AM Margy Haskins DECAL CUTTER-DRAFTER LANDSCAPE IMG CT ORDERABLES Fi nal Result * MR lumbar spine without contrast (11/03/2024 9:58 AM EDT) Anatomical Region Laterality Modality MSK, Neuro, Spine, L-spine, Spine Covera N/A Magnetic Resonance 11/04/2024 11:2 7 AM EDT Narrative 11/04/2024 11:30 AM EDT CLINICAL INFORMATION: Lumbosacral radiculopathy; Low back pain [...] Mil Mcdonnell MD on 11/04/2024 11:30 AM Procedure Note Mil Mcdonnell MD - 11/04/2024 CLINICAL INFORMATION: Lumbosacral radiculopathy; Low back pain at multiple sites TECHNIQUE: MR LUMBAR SPINE WO CONT Multisequence multiplanar imaging of the lumbar spine was obtainedutilizing a routine lumbar protocol. There is no significant lumbarmalalignment or evidence of acute compression. Disc spaces are narrowedthroughout. No obvious abnormalities sacral ala or SI joints. Conus tip atT12 without cord signal characteristic abnormality. There is a partially lumbarized X3xwcptvycq body. At the L5-S1 level disc osteophyte complex appreciatedwhich produces mild to moderate neural foraminal narrowing. Centralcomponent of the disc protrusion potentially contact the left S1 nerveroot. There is, however no significant central canal stenosis. At the L4-5 level leftlateral disc protrusion potentially contact the left L4 nerve root. Nosignificant stenosis, however. Mild degenerative changes present at L3-4without significant central canal or neural foraminal compromise. The L1-2and L2-3 levels are unremarkable. IMPRESSION: Lower lumbar degenerative changes without high-grade stenosis. Leftlateral disc protrusion at L4-5 potentially contacts the left L4 nerveroot. Finalized by Mil Mcdonnell MD on 11/04/2024 11:30 AM us Lisbeth Delongmayur MAY-DRAFTER LANDSCAPE IMG MRI ORDERABLES Final Result * X-ray spine cervical 3 views or less (10/17/2024 10:27 AM EDT) Anatomical Region Laterality Modality MSK, Neuro, Spine, C-spine N/A Compu ameya Radiography us Not In System Ref Prov IMG DIAGNOSTIC IMAGING OR DERABLES Final Result from Last 3 Months Insurance [employer] Care Teams Carrot Grader Inspector Relationship Specialty Start Date End Date Margy Haskins APRN-DRAFTER LANDSCAPE [address] [place] [address] PCP - General Family Medicine 11/27/20
--- OUTSIDE RECORDS SUMMARY | 2025-01-02 08:23 | XMS_ITS | Encounter Summary ---
Author Organization [employer] [facility] tem Address [id number] [place] [address] Care Team Providers Care Pump Installation And Servicer Name Role Phone Margy Haskins THEATRICAL AGENT-DIRECTOR APPAREL Primary Care Provid er Encounter Details Date Type Department Care Team (Late st Contact Info) Description 05/11/2024 Orders Only [facility] - Family Medicine [address] [place] [phone] Margy Haskins, THEATRICAL AGENT-[facility] [address] [facility] [place] [phone] Positive CATHY (antinuclear antibody); Pain in other joint; Joint swelling Social History Tobacco Use Types Packs/Day Years Used Date Smoking Tobacco: Former Cigarettes Smokeless Tobacco: Current Chew Alcohol Use Standard Drinks/Week Comments Yes 24 (1 standard drink = 0.6 oz pu re alcohol) weekly PHQ-2 Answer Date Recorded Total Score 0 05/10/2024 Childcare Answer Date Recorded Childcare Unknown 01/12/2019 Employment Answer Date Recorded Employment Unknown 01/12/2019 Hunger Screening Answer Date Recorded Within the past 12 months we worried whether our food would run out before we got money to buy more. Never True 05/10/2024 Within the past 12 months th e food we bought just didn't last and we didn't have money to get more. Never True 05/10/2024 Sex and Gender Information Value Date Recorded Sex Assigned at Not on file Legal Sex Male 11:31 AM EDT Gender Identity Not on file Sexual Orientation Not on file documented as of this encounter Plan of Treatment Not on file documented as of this encounter Procedures Procedure Name Priority Date/Time Associated Diagnosis Comments AMB REFERRAL TO RHEUMATOLOGY Routine 05/05/2024 Positive CATHY (antinuclear antibody) Pain in other joint Joint swelling documented in this encounter Results * Ambulatory referral to Rheumatology ([facility]) (05/05/2024) us Margy CRISOSTOMO OUTPATIENT REFERRAL ORDERABLES Final Result MANUALLY TRANSCRIBED RESULTS documented in this encounter Visit Diagnoses Diagnosis Positive CATHY (antinuclear antibody) Other and unspecified nonspecific immunological findings Pain in other joint Joint swelling Effusion of joint, site unspecified documented in this encounter Additional Health Concerns Assessment Noted Time PHQ-9 Depression Total Score: 0 05/10/20 24 12:52 PM EDT A Body Mass Index follow-up plan has been documented for the patient 05/10/2024 2:13 PM EDT documented as of this encounter Care Teams Pump Installation And Servicer Relationship Specialty Start Date End Date Margy Haskins APRN-CNP [address] [place] [address] PCP - General Family Medicine 11/27/20 documented as of this encounter
--- OUTSIDE RECORDS SUMMARY | 2025-01-02 08:23 | XMS_ITS | Encounter Summary ---
Author Organization [employer] tem Address [id number] [address] [place] [address] Care Team Providers Care Plant Science Professor Name Role Phone Margy Haskins SKILLS INSTRUCTOR-JUNIOR UNDERWRITER Primary Care Provid er Encounter Details Date Type Department Care Team (Late st Contact Info) Description 10/06/2024 Orders Only [facility] Internal Medicine - Family Medicine [address] [place] [phone] Ref Prov, [place] [address] Social History Tobacco Use Types Packs/Day Years [...] Procedure Name Priority Date/Time Associated Diagnosis Comments MR CERVICAL SPINE W WO CONT Routine 09/29/2024 10:18 AM EST MR CERVICAL SPINE W WO CONT Routine 09/29/2024 10:17 AM EST documented in this encounter Results * MR cervical spine with and without contrast (09/29/2024 10:18 AM EST) Anatomical Region Laterality Modality MSK, Neuro, Spine, C-spine, Spine Covera N/A Magnetic Resonance us Not In System Ref Prov IMG MRI ORDERABLES Final Result * MR cervical spine with and without contrast (09/29/2024 10:17 AM EST) Anatomical Region Laterality Modality MSK, Neuro, Spine, C-spine, Spine Covera N/A Magnetic Resonance us Not In System Ref Prov IMG MRI ORDERABLES Final Result documented in this encounter Visit Diagnoses Not on filedocumented in this encounter Additional Health Concerns Assessment Noted Time PHQ-9 Depression Total Score: 0 05/10/20 24 12:52 PM EDT A Body Mass Index follow-up plan has been documented for the patient 05/10/2024 2:13 PM EDT documented as of this encounter Care Teams Plant Science Professor Relationship Specialty Start Date End Date Margy Haskins, SKILLS INSTRUCTOR-JUNIOR UNDERWRITER [address] [place] [address] PCP - General Family Medicine 11/27/20 documented as of this encounter
--- OUTSIDE RECORDS SUMMARY | 2025-01-02 08:23 | XMS_ITS | Encounter Summary ---
Author Organization [facility] Address [address] [place] [address] Care Team Providers Care Underground Roof Bolter Name Role Phone Haskins Margy NAVARRETE Unavailable [phone] Aniket Casarez DO Unavailable [phone] Angela Estevez Unavailable Unallocated, Noms Provider Primary Care [facility] Encounter Details Date Type Department Care Team (Late st Contact Info) Description 09/26/2024 External Result Encounter CATHY DIANNA [address] [place] [address] Lisbeth Middleton NP [address] [place] [address] Social History Tobacco Use Types Packs/Day Years Used Date Smoking Tobacco: Former Cigarettes 1 40 Smokeless Tobacco: Current Snuff Alcohol Use Standard Drinks/Week Comments Yes 6 (1 standard drink = 0.6 oz pur e alcohol) Sex and Gender Information Value Date Recorded Sex Assigned at Not on file Legal Sex Male 2:55 PM EDT Gender Identity Not on file Sexual Orientation Not on file documented as of this encounter Plan of Treatment Not on file documented as of this encounter Procedures Procedure Name Priority Date/Time Associated Diagnosis Comments MR CERVICAL SPINE WO CONTRAST 09/26/2024 1:30 PM EST documented in this encounter Results * MR cervical spine wo contrast (09/26/2024 1:30 PM EST) Anatomical Region Laterality Modality Spine, C-spine Magnetic Resonan ce 09/26/2024 1:30 PM EST Narrative 09/26/2024 1:29 PM EST THIS EXAM WAS PERFORMED AT [facility] STUDY: MR CERVICAL SPINE WO CONT HISTORY: Neck pain; Paresthesias TECHNIQUE: * Routine multiplanar multisequence MR imaging of the cervical spine was performed without intravenous contrast. FINDINGS: Vertebral body heights and alignment are maintained. Moderate multilevel intervertebral disc space narrowing most significant at C4- C7 with additional degenerative endplate changes. Prominent Schmorl's [...] by Cristhian Lilly on 09/26/2024 1:29 PM Procedure Note Radiology, Radiologist, - 09/26/2024 THIS EXAM WAS PERFORMED AT [facility] STUDY: MR CERVICAL SPINE WO CONT HISTORY: Neck pain; Paresthesias TECHNIQUE: * Routine multiplanar multisequence MR imaging of the cervical spine wasperformed without intravenous contrast. FINDINGS: Vertebral body heights and alignment are maintained. Moderate multilevel intervertebral disc space narrowing most significantat C4-C7 with additional degenerative endplate changes. ProminentSchmorl's node at the C4 inferior endplate. Modic type I degenerativeendplate changes at C5-C6. T2 vertebral body hemangioma. Visualized posterior fossa and cervical cord signal appear unremarkable. Mildly enlarged right level 2/3 lymph node (series 10, image 10). C2-C3: No significant spinal canal or neural foraminal narrowing. C3-C4: Mild facet arthropathy without significant spinal canal orneuroforaminal stenosis. C4-C5: Mild broad-based disc osteophyte complex, facet and uncovertebralarthropathy results in moderate right greater than left neuroforaminalstenosis. Mild spinal canal stenosis. C5-C6: Mild broad-based disc osteophyte complex, ligamentum flavumhypertrophy and facet and uncovertebral arthropathy results in moderate tosevere right and severe left neuroforaminal stenosis. Mild to moderatespinal canal stenosis. C6-C7: Mild broad-based disc osteophyte complex with moderate to severeleft neuroforaminal stenosis. Mild spinal canal stenosis. C7-T1: No significant spinal canal or neural foraminal narrowing. IMPRESSION: * Multilevel degenerative changes most significant at C4-C5, C5-C6 andC6-C7 where there is bilateral neuroforaminal stenosis as described. * Mildly enlarged right level 2/3 lymph node. Recommend follow-up withCT Soft tissue neck for complete characterization. THIS REPORT CONTAINS AN UNEXPECTED RESULT AND/OR RECOMMENDATION, WHICHREQUIRES THE ATTENTION OF THE LICENSED CAREGIVER RESPONSIBLE FOR THISPATIENT. THEREFORE, I SPECIFICALLY DESIGNATED THIS REPORT TO BE TELEPHONEDBY THE RADIOLOGY DEPARTMENT. FINDINGS WERE INSTRUCTED TO BE CALLED TO THE CLINICAL SERVICE ON 51:28 PM Finalized by Cristhian Lilly on 09/26/2024 1:29 PM Lisbeth Middleton NP IMG MRI PROCEDURES Final Result documented in this encounter Visit Diagnoses Not on filedocumented in this encounter Care Teams Underground Roof Bolter Relationship Specialty Start Date End Date Unallocated, Noms Provider, [address] [place] [address] PCP - General Family Medicine 11/16/24 Margy Haskins CRNP Referring Physician Nurse Practitioner 05/13/24 Aniket Casarez DO [address] [facility] [address] [place], [place] [phone] Referring Physician Neurology 06/09/24 Angela Estevez PA [address] [place], [place] [id number] Physician Structural Steel Fitter Neurology 11/16/24 documented as of this encounter
--- OUTSIDE RECORDS SUMMARY | 2025-01-02 08:23 | XMS_ITS | Encounter Summary ---
Author Organization [facility] Address [address] [place] [address] Care Team Providers Care Sheriffs Name Role Phone Margy Haskins Unavailable [phone] Aniket Casarez DO Unavailable [phone] Angela Estevez Unavailable Unallocated, Noms Provider Primary Care [facility] Reason for Visit * Reason Onset Date Comments Med Refill 07/13/2024 Encounter Details Date Type Department Care Team (Late st Contact Info) Description 07/13/2024 Refill [facility] [address] [place] [address] Nandini Cox PTA Social History Tobacco Use Types Packs/Day Years Used Date Smoking Tobacco: Every Day Cigarettes 1 40 Smokeless Tobacco: Current Snuff [...] on filedocumented in this encounter Care Teams Sheriffs Relationship Specialty Start Date End Date Unallocated, Noms Provider, [address] [place] [address] PCP - General Family Medicine 11/16/24 Margy Haskins CRNP Referring Physician Nurse Practitioner 05/13/24 Aniket Casarez DO [address] [facility] [address] [place] [address] Referring Physician Neurology 06/09/24 Angela Estevez PA [address] [facility] [address] [place] [address] Physician Account Processor Neurology 11/16/24 documented as of this encounter
--- OUTSIDE RECORDS SUMMARY | 2025-01-02 08:23 | XMS_ITS | Encounter Summary ---
Author Organization [employer] Address [id number] [address] [place] [address] Care Team Providers Care Maintenance Manager Name Role Phone Margy Haskins Primary Care Provid er Encounter Details Date Type Department Care Team (Late st Contact Info) Description 03/22/2024 Telephone [facility] Internal [facility] - Family Medicine [address] [place] [phone] Gabriela Vuong CMA Social History Tobacco Use [...] Telephone Encounter - Gabriela Vuong CMA - 03/22/2024 9:57 AM EDT ----- Message from ANDRESSA Martin sent at 03/22/2024 9:39 AM EDT ----- Reviewed. Inform patient received notification from Cologuard sample could not be processed. Will need to notify cologuard for another kit. I called pt and read him the result note. Pt verbally states he understands. Was wondering if we got results from his other Doctor. I stated no. Gave him our fax number to have them send it over. documented in this encounter Plan of Treatment Not on file documented as of this encounter Visit Diagnoses Not on filedocumented in this encounter Additional Health Concerns Assessment Noted Time PHQ-9 Depression Total Score: 0 02/01/20 24 4:05 PM EDT A Body Mass Index follow-up plan has been documented for the patient 02/01/2024 4:54 PM EDT documented as of this encounter Care Teams Maintenance Manager Relationship Specialty Start Date End Date Margy Haskins, CONFERENCE CONCIERGE-DIRECTOR DIGITAL COMMUNICATIONS [address], [facility] [place] [address] PCP - General Family Medicine 11/27/20 documented as of this encounter
--- OUTSIDE RECORDS SUMMARY | 2025-01-02 08:23 | XMS_ITS | Encounter Summary ---
Author Organization [employer] [facility] tem Address [id number] [address] [place] [address] Care Team Providers Care Mail Deliverer Name Role Phone Margy Haskins [place] INTERN-TUCK POINTER HELPER Primary Care Provid er Encounter Details Date Type Department Care Team (Late st Contact Info) Description 02/02/2024 Telephone [facility] - Family Medicine [address] [place] [phone] Noy Bruno CMA Social History Tobacco Use Types Packs/Day [...] encounter Miscellaneous Notes * Telephone Encounter - Noy Bruno CMA - 02/02/2024 10:32 AM EDT I spoke with Lissa at Dr. Mackenzie office and she looked up the referral. They called him on 01/15/24 and tried to schedule but he said No thanks and hung up the phone on them He was nasty and they said they will not schedule him or see him. He is giog to have to go see someone else. * Telephone Encounter - ANDRESSA Guzman - 02/02/2024 10:32 AM EDT Make sure you notify the patient and inform. I strongly recommend him seeing a editor school photograph. Nextstep will be [place] documented in this encounter Plan of Treatment Not on file documented as of this encounter Visit Diagnoses Not on filedocumented in this encounter Additional Health Concerns Assessment Noted Time PHQ-9 Depression Total Score: 0 02/01/20 24 4:05 PM EDT A Body Mass Index follow-up plan has been documented for the patient 02/01/2024 4:54 PM EDT documented as of this encounter Care Teams Mail Deliverer Relationship Specialty Start Date End Date Margy Haskins APRN-CNP [address], [place] [address] PCP - General Family Medicine 11/27/20 documented as of this encounter
--- OUTSIDE RECORDS SUMMARY | 2025-01-02 08:23 | XMS_ITS | Clinical Summary ---
Author Organization [facility] Address [address] [place] [address] Care Team Providers Care Laundry Pricing Clerk Name Role Phone Margy Haskins Unavailable [phone] HermelindoAniket alcantara Unavailable Angela Estevez Unavailable Unallocated, Noms Provider MD Primary Care [facility] Allergies Active Allergy Reactions Criticality Noted Date Comments Bee Venom Shortness of breath,Swelling High 021 Medications etodolac (Lodine) 500 MG tablet Take 500 mg by mouth in the morning and 500 mg before bedtime. 06/07/2024 Active baclofen (Lioresal) 10 MG tablet Take 10 mg by mouth in the morning and 10 mg before bedtime. Active tiZANidine (Zanaflex) 4 MG capsule Take 4 mg by mouth at bedtime Active Active Problems Problem Noted Date Diagnosed Date Neck pain 06/20/2024 Chronic midline low back pain without sciatica 1 08/20/2023 Multiple joint pain 06/20/2024 Paresthesia 06/20/2024 Encounters Date Type Department Care Team Description 11/16/2024 11:00 AM EDT Office Visit [facility]ATHY BUSTAMANTE [address] [place] [phone] Angela Estevez PA Neck pain (Primary Dx); DDD (degenerative disc disease), cervical; Lumbosacral radiculopathy; Low back pain at multiple sites 11/16/2024 Bamboo flowsheet CATHY BUSTAMANTE [address] [phone] Angela Estevez PA 11/07/2024 Telephone [facility]ATHY BUSTAMANTE [facility] [place] [phone] Lisbeth Middleton NP 11/04/2024 External Result Encounter [facility]ATHY BUSTAMANTE [facility] [address] [place] [address] Lisbeth Middleton NP 10/04/2024 1:40 PM EST Office Visit [facility]ATHY BUSTAMANTE [facility] [address] Lisbeth Middleton NP Neck pain (Primary Dx); DDD (degenerative disc disease), cervical; Enlarged lymph node; Lumbosacral radiculopathy; Low back pain at multiple sites 10/04/2024 Bamboo flowsheet CATHY BUSTAMANTE [address] [phone] Lisbeth Middleton NP from Last 3 Months Family History Relation Name Status Comments Father Mother Social History Tobacco Use Types Packs/Day Years [...] Sign Reading Time Taken Comments Blood Pressure 130/82 11/16/2024 11:02 AM EDT Pulse 78 11/16/2024 11:02 AM EDT Temperature - - Respiratory Rate 16 11/16/2024 11:02 AM EDT Oxygen Saturation 96% 11/16/2024 11:02 AM EDT Inhaled Oxygen Concentration - - Weight 161 kg (354 lb) 11/16/2024 11:02 AM EDT Height 182.9 cm (6') 11/16/2024 11:02 AM EDT Body Mass Index 48.01 11/16/2024 11:02 AM EDT Plan of Treatment Health Maintenance Due Date Last Done Comments CT Colonography 1966 Colonoscopy 1966 FIT 1966 FOBT 1966 Sigmoidoscopy 1966 Influenza Vaccine (Season Ended) 2025 Colorectal Cancer Screening 05/03/2027 FIT-DNA 05/03/2027 05/03/2024 Procedures Procedure Name Priority Date/Time Associated Diagnosis Comments MR LUMBAR SPINE WO CONTRAST 11/04/2024 11:31 AM EDT from Last 3 Months Results * MR lumbar spine wo contrast (11/04/2024 11:31 AM EDT) Anatomical Region Laterality Modality Spine, L-spine Magnetic Resonan ce 11/04/2024 11:3 1 AM EDT Narrative 11/04/2024 11:30 AM EDT THIS EXAM WAS PERFORMED AT [facility] CLINICAL INFORMATION: Lumbosacral radiculopathy; Low back pain [...] MD on 11/04/2024 11:30 AM Procedure Note Radiology, Radiologist, - 11/04/2024 THIS EXAM WAS PERFORMED AT [facility] CLINICAL INFORMATION: Lumbosacral radiculopathy; Low back pain [...] characteristic abnormality. There is a partially lumbarized [id number] body. At the L5-S1 level disc osteophyte [...] Mil Mcdonnell MD on 11/04/2024 11:30 AM Lisbeth Middleton NP IMG MRI PROCEDURES Final Result from Last 3 Months Insurance [employer] Care Teams Laundry Pricing Clerk Relationship Specialty Start Date End Date Unallocated, Noms MD Chris [address] [place], [place] [phone] PCP - General Family Medicine 11/16/24 Margy Haskins CRNP Referring Physician Nurse Practitioner 05/13/24 Aniket Casarez DO [address] [facility] [address] [place] [address] Referring Physician Neurology 06/09/24 Angela Estevez PA [address] [facility] [address] [place] [address] Physician Insurance Territory Manager Neurology 11/16/24
--- OUTSIDE RECORDS SUMMARY | 2025-01-02 08:23 | XMS_ITS | Encounter Summary ---
Author Organization [facility] Address [address] [place] [address] Care Team Providers Care Print Binding And Finishing Worker Name Role Phone Margy Haskins Unavailable [phone] Aniket Casarez DO Unavailable [phone] Angela Estevez Unavailable Unallocated, Noms Provider Primary Care [facility] Encounter Details Date Type Department Care Team (Late st Contact Info) Description 11/04/2024 External Result Encounter CATHY DIANNA [address] [place] [address] Lisbeth Middleton NP [address] [place] [address] Social History Tobacco Use Types [...] SPINE WO CONTRAST 11/04/2024 11:31 AM EDT documented in this encounter Results * MR lumbar spine wo contrast (11/04/2024 11:31 AM EDT) Anatomical Region Laterality Modality Spine, L-spine Magnetic Resonan ce 11/04/2024 11:3 1 AM EDT Narrative 11/04/2024 11:30 AM EDT THIS EXAM WAS PERFORMED AT [facility] CLINICAL INFORMATION: Lumbosacral radiculopathy; Low back pain [...] 11/04/2024 11:30 AM Procedure Note Radiology, Radiologist, MD - 11/04/2024 THIS EXAM WAS PERFORMED AT [facility] CLINICAL INFORMATION: Lumbosacral radiculopathy; Low back pain [...] characteristic abnormality. There is a partially lumbarized [id number] body. At the L5-S1 level disc osteophyte [...] MD on 11/04/2024 11:30 AM Lisbeth Middleton DIGESTION OPERATOR IMG MRI PROCEDURES Final Result documented in this encounter Visit Diagnoses Not on filedocumented in this encounter Care Teams Print Binding And Finishing Worker Relationship Specialty Start Date End Date Unallocated, Noms Provider, [address] [place] [address] PCP - General Family Medicine 11/16/24 Margy Haskins CRNP Referring Physician Nurse Practitioner 05/13/24 Aniket Casarez DO [address] [place] [address] Referring Physician Neurology 06/09/24 Angela Estevez PA [address] [place] [address] Physician Press Hand Supervisor Neurology 11/16/24 documented as of this encounter
--- OUTSIDE RECORDS SUMMARY | 2025-01-02 08:43 | XMS_ITS | CCD ---
Author Organization [facility] Care Team Providers Care Fish Agent Name Role Phone ANG, ROSA ISELA Referring Unavailable HASKINS, ROSA ISELA Primary Care Unavailable HASKINS, ROSA ISELA Referring Unavailable HASKINS, ROSA ISELA Primary Care Unavailable MD Pa San Attending Provider Pa San Attending Unavailable Pa San Admitting Unavailable Haskins LANDON, Rosa Isela Unavailable [phone] Aniceto Casarez DO Unavailable Rosa Isela Lyn Primary Care Provid er ROSA ISELA HASKINS J Attending Unavailable HASKINSJANETROSA ISELA J Referring Unavailable HASKINS, ROSA ISELA J Primary Care Unavailable ROSA ISELA HASKINS J Attending Unavailable HASKINS, ROSA ISELA J Referring Unavailable HASKINS, ROSA ISELA J Primary Care Unavailable HASKINS, ROSA ISELA J Attending Unavailable HASKINS, ROSA ISELA J Referring Unavailable HASKINS, ROSA ISELA J Primary Care Unavailable HASKINS, ROSA ISELA J Attending Unavailable HASKINSJANET DUMONTERIE J Referring Unavailable HASKINS, ROSA ISELA J Primary Care Unavailable PA MATHEWS Referring Unavailable HASKINS, ROSA ISELA Dia Primary Care Unavailable MIDDLETON, LISBETH Referring Unavailable HASKINS, ROSA ISELA J Primary Care Unavailable MIDDLETON, LISBETH Referring Unavailable HASKINS, ROSA ISELA J Primary Care Unavailable HASKINS, ROSA ISELA J Referring Unavailable HASKINS, ROSA ISELA J Primary Care Unavailable Haskins Janet NAVARRETEerie Unavailable Angela Islas Unavailable Jahlocatjean claude HANEY, Noms Provider Primary Care Provi hung ANICETO CASAREZ Attending Unavailable HASKINS, ROSA ISELA Referring Unavailable LUDY CROWLEY Attending Unavailable ANICETO CASAREZ Referring Unavailable NANDINI COX Attending Unavailable ANICETO CASAREZ Referring Unavailable ANICETO CASAREZ Attending Unavailable LISBETH MIDDLETON Attending Unavailable NANDINI COX Attending Unavailable ANICETO CASAREZ Referring Unavailable TATTERSNANDINI CASTANEDA Attending Unavailable ANICETO CASAREZ Referring Unavailable PA MATHEWS Attending Unavailable LISBETH MIDDLETON Referring Unavailable NANDINI COX Attending Unavailable ANICETO CASAREZ Referring Unavailable CARLINELUDY NAVARRO Attending Unavailable ANICETO CASAREZ Referring Unavailable LUDY CROWLEY Attending Unavailable ANICETO CASAREZ Referring Unavailable DANNI LUNA Attending Unavailable ANICETO CASAREZ Referring Unavailable KAMRONTERSNANDINI CASTANEDA Attending Unavailable ANICETO CASAREZ Referring Unavailable LUDY CROWLEY Attending Unavailable ANICETO CASAREZ Referring Unavailable LISBETH MIDDLETON Attending Unavailable ANGELA ESTEVEZ Attending Unavailable Niurka HANEY, Frank Valverde Attending Unavailable Niurka HANEY, Frank Valverde Attending Unavailable Allergies Allergy Classification Reported Allergen(s) Allergy [...] Drug Class(es) Dates Sig (Normalized) Sig (Original) baclofen 10 mg oral tablet (2 sources) gamma-Aminobutyric Acid-ergic Agonist take 1 tablet by mouth in the morning baclofen (Lioresal) 10 MG tablet Take 10 mg by mouth in the morning and 10 mg before bedtime. Active celecoxib 200 mg oral capsule (14 sources) [...] (Therapy completed) tiZANidine 4 mg oral tablet (4 sources) Central alpha-2 Adrenergic Agonist Start: 05-05-2024 End: 10-19-2024 tiZANidine (ZANAFLEX) 4 mg tablet 05/05/2024 10/19/2024 Discontinued (Therapy completed) take 1 capsule by mouth at bedti ma tiZANidine (Zanaflex) 4 MG capsule Take 4 mg by mouth at bedtime Active Completed/Discontinued Medications Medication Drug Class(es) Dates Sig (Normalized) Sig (Original) [id number] 0.3 ml EPINEPHrine 1 mg/ml auto-injector (1 [...] Spondylosis; intervertebral disc disorders; other back problems (2 sources) Degeneration of cervical intervertebral disc; Translations: [Other cervical disc degeneration, unspecified cervical region] 11-16-2024 Chronic Spondylosis; intervertebral disc disorders; other back problems [...] Ole Richardson MD on 11/06/2024 6:08 AM [facility] MR LUMBAR SPINE WO CONTon MR LUMBAR [...] Mcdonnell MD on 11/04/2024 11:30 AM Normal [facility] MR CERVICAL SPINE WO CONTon 09-26-2024 MR [...] Cristhian Lilly on 09/26/2024 1:29 PM Normal [facility] B. burgdorferi IgG+IgM Qn (S )on 07-21-2024 LYME TOTAL <0.2 Normal <0.9 [facility] Comment on above: Result Comment: Interpretation-------- <0.9 Negative 0.9 - 1.0 Equivocal >1.0 Positive No serological evidence of Borrelia infection.A non-reactive result does not exclude the possibility of Borrelia infection and cannot exclude early infection with B.burgdorferi. If Lyme borreliosis is suspected, a second sample should be collected and tested 2-4 weeks later. Performed By: #### 8 2477-, 1987-12, 2633, 60671-2 #### [facility] ([id number]) [address], [address] [place] [address] CRP [Mass/Vol]on 07-21-2024 C REACTIVE PROTEIN 0.9 mg/dL High 0.000-0.744 [facility] Comment on above: Performed By: #### 8 2477-, 1987-12, 263-3, 28908-6 #### [facility] ([id number]) [address], [address] [place] [address] ESR (Bld) [Velocity]on 07-21 [facility] ESR Photometric method (Bld) [Velocity]on 07-21-2024 ESR, ERYTHROCYTE SEDIMENTATION RATE 10 mm/h Normal 0-20 [facility] Comment on above: Performed By: #### 8 2477-1, 1987-12, 263-3, 86699-1 #### [facility] ([id number]) [address], [address] [place] [address] Myoglobin [Mass/Vol]on 07-21 SERUM MYOGLOBIN 25.3 ng/mL Normal 17.4-105.7 [facility] Comment on above: Performed By: #### 8 2477-, 1987-12, 3, 82181-2 #### [facility] ([id number]) [address], [address] [place] [address] Sedimentation rate, automate don 07-21-2024 ESR (Bld) [Velocity] 10 mm/h 0 - 20 mm/h [facility] Comment on above: PERFORMED AT [facility] [address],[place] [address] EMG 2 Extremitieson 07-05-20 24 Ulnar neuropathy bilateral, axonal loss, non localizable Carpal tunnel, [facility]12 Nerveson 4 Ulnar neuropathy bilateral, axonal loss, non localizable Carpal tunnel syndrome bilaterally, minimal bilaterally [facility] CATHY Antinuclear Antibodieson 03-17-2024 Antinuclear Abs, IFA Negative Normal . [facility] Comment on above: Result Comment: Nega tive <1:80 Borderline 1:80 Positive >1:80 ICAP nomenclature: AC-[id number] For more information about Hep-2 cell patterns use ANApatterns.org, the official website for the International Consensus on Antinuclear Antibody (CATHY) Patterns (ICAP). Performed at: - [facility] [id number] Side Puller: Mil Guzman PhD, Phone: [phone] Performed By: #### T SH3, PP, ESR, CBC, CMP, CK, ADDONUAPLUS, CRP, T4F #### [facility] [address] [place] [address] #### HBCAB, RPR W RFX, HBSAG, HCV RX PCR, HBSAB, ALDOLASE #### [facility] , Activated partial thrombopla stin time (aPTT) in platelet poor plasma by coagulation aOrdered By: Pa San on 03-17-2024 aPTT Coag (PPP) [Time] 34.1 s 25.1-36.5 [facility] Comment on above: A hematocrit value g reater than 55% may lead to inaccurate results in coagulation testing. Patients having hematocrit values >55% require a special collection tube for coagulation studies. Please contact the laboratory at [phone] for redraw instructions. Alanine aminotransferase [En zymatic activity/volume] in Serum or PlasmaOrdered By: Pa San on 03-17-2024 ALT [Catalytic activity/Vol] 39 U/L Normal 7-52 [facility] Comment on above: Performed By: #### T SH3, PP, ESR, CBC, CMP, CK, ADDONUAPLUS, CRP, T4F #### [facility] [address] [place] [address] #### HBCAB, RPR W RFX, HBSAG, HCV RX PCR, HBSAB, ALDOLASE #### [facility] , Albumin [Mass/volume] in Ser um or Plasma by Bromocresol green (BCG) dye binding methoOrdered By: Pa San on 03-17-2024 Albumin BCG dye [Mass/Vol] 4.6 g/dL 3.5-5.7 [facility] Aldolaseon 03-17-2024 Aldolase 4.7 U/L Normal 3.3-10.3 [facility] Comment on above: Result Comment: Perf ormed at: CB - [facility] [address] [id number] Side Puller: Mil Guzman PhD, Phone: [phone] PERFORMED BY: [place] [address] PATHOLOGIST MAINTENANCE DEPARTMENT TECHNICIAN JOSE ROGERS M.D. Performed By: #### T SH3, PP, ESR, CBC, CMP, CK, ADDONUAPLUS, CRP, T4F #### [address] #### HBCAB, RPR W RFX, HBSAG, HCV RX PCR, HBSAB, ALDOLASE #### [facility] , Alkaline phosphatase [Enzyma tic activity/volume] in Serum or PlasmaOrdered By: Pa San on 03-17-2024 ALP [Catalytic activity/Vol] 73 U/L Normal 34-104 [facility] Comment on above: Performed By: #### T SH3, PP, ESR, CBC, CMP, CK, ADDONUAPLUS, CRP, T4F #### [address] #### HBCAB, RPR W RFX, HBSAG, HCV RX PCR, HBSAB, ALDOLASE #### [facility] , Antithyroglobulin Abon 03-17 Antithyroglobulin Ab <1.0 Normal 0.0-0.9 [facility] Comment on above: Result Comment: Thyr oglobulin Antibody measured by gis.to Methodology It should be noted that the presence of thyroglobulin antibodies may not be pathogenic nor diagnostic, especially at very low levels. The assay die keeper has found that four percent of individuals without evidence of thyroid disease or autoimmunity will have positive TgAb levels up to 4 IU/mL. Performed at: [address] [id number] Side Puller: Mil Guzman PhD, Phone: [phone] Performed By: #### T SH3, PP, ESR, CBC, CMP, CK, ADDONUAPLUS, CRP, T4F #### [address] #### HBCAB, RPR W RFX, HBSAG, HCV RX PCR, HBSAB, ALDOLASE #### [facility] , Aspartate aminotransferase [ Enzymatic activity/volume] in Serum or PlasmaOrdered By: Pa San on 03-17-2024 AST [Catalytic activity/Vol] 28 U/L Normal 13-39 [facility] Comment on above: Performed By: #### T SH3, PP, ESR, CBC, CMP, CK, ADDONUAPLUS, CRP, T4F #### [facility] [address] [place] [address] #### HBCAB, RPR W RFX, HBSAG, HCV RX PCR, HBSAB, ALDOLASE #### [facility] , Automated basophil %Ordered By: Pa San on 03-17-2024 Basophils/100 WBC (Bld) 1.1 % Normal . [facility] Comment on above: Performed By: #### T SH3, PP, ESR, CBC, CMP, CK, ADDONUAPLUS, CRP, T4F #### [address] #### HBCAB, RPR W RFX, HBSAG, HCV RX PCR, HBSAB, ALDOLASE #### [facility] , Automated basophil countOrde red By: Pa San on 03-17-2024 Basophils (Bld) [#/Vol] 0.1 10*3/uL Normal 0.0-0.2 [facility] Comment on above: Performed By: #### T SH3, PP, ESR, CBC, CMP, CK, ADDONUAPLUS, CRP, T4F #### [address] #### HBCAB, RPR W RFX, HBSAG, HCV RX PCR, HBSAB, ALDOLASE #### [facility] , Automated blood monocyte cou ntOrdered By: Pa San on 03-17-2024 Monocytes (Bld) [#/Vol] 0.6 10*3/uL Normal 0.0-0.8 [facility] Comment on above: Performed By: #### T SH3, PP, ESR, CBC, CMP, CK, ADDONUAPLUS, CRP, T4F #### [place] [address] [place] #### HBCAB, RPR W RFX, HBSAG, HCV RX PCR, HBSAB, ALDOLASE #### [facility] , Automated eosinophil %Ordere d By: Pa Blackmanrow on 03-17-2024 Eosinophils/100 WBC (Bld) 2.4 % Normal . [facility] Comment on above: Performed By: #### T SH3, PP, ESR, CBC, CMP, CK, ADDONUAPLUS, CRP, T4F #### [facility] [address] [place] [address] [place] #### HBCAB, RPR W RFX, HBSAG, HCV RX PCR, HBSAB, ALDOLASE #### [facility] , Automated eosinophil countOr dered By: Pa Blackmanrow on 03-17-2024 Eosinophils (Bld) [#/Vol] 0.2 10*3/uL Normal 0.0-0.45 [facility] Comment on above: Performed By: #### T SH3, PP, ESR, CBC, CMP, CK, ADDONUAPLUS, CRP, T4F #### [facility] [address] [place] [address] #### HBCAB, RPR W RFX, HBSAG, HCV RX PCR, HBSAB, ALDOLASE #### [facility] , Automated epithelial cells c ount in urine sediment (number/area)Ordered By: Padewayen San on 03-17-2024 Epithelial cells Auto (Urine sed) [#/Area] None seen [HPF] 0-2 [facility] Automated monocyte %Ordered By: Pa San on 03-17-2024 Monocytes/100 WBC (Bld) 9.3 % Normal . [facility] Comment on above: Performed By: #### T SH3, PP, ESR, CBC, CMP, CK, ADDONUAPLUS, CRP, T4F #### [facility] [address] [place] [address] [place] #### HBCAB, RPR W RFX, HBSAG, HCV RX PCR, HBSAB, ALDOLASE #### [facility] , Automated neutrophil %Ordere d By: Padewayne San on 03-17-2024 Neutrophils/100 WBC (Bld) 62.7 % Normal . [facility] Comment on above: Performed By: #### T SH3, PP, ESR, CBC, CMP, CK, ADDONUAPLUS, CRP, T4F #### [facility] [address] [place] [address] [place] #### HBCAB, RPR W RFX, HBSAG, HCV RX PCR, HBSAB, ALDOLASE #### [facility] , Bacteria [Presence] in Urine by AutomatedOrdered By: Pa San on 03-17-2024 Bacteria Auto Ql (U) None seen [HPF] None Seen [facility] Bilirubin Test strip Ql (U)O rdered By: Pa San on 03-17-2024 Bilirubin Ql (U) Negative Negative [facility] Bilirubin.total [Mass/volume ] in Serum or PlasmaOrdered By: Pa San on 03-17-2024 Bilirubin [Mass/Vol] 0.4 mg/dL Normal 0.3-1.0 [facility] Comment on above: Performed By: #### T SH3, PP, ESR, CBC, CMP, CK, ADDONUAPLUS, CRP, T4F #### [facility] [address] [place] [address] [place] #### HBCAB, RPR W RFX, HBSAG, HCV RX PCR, HBSAB, ALDOLASE #### [facility] , C reactive protein [Mass/vol ume] in Serum or PlasmaOrdered By: Pa San on 03-17-2024 CRP [Mass/Vol] < 0.5 mg/dL 0.0-0.5 [facility] C-Reactive Proteinon 024 CRP [Mass/Vol] mg/L Normal 0.0-0.5 [facility] Comment on above: Performed By: #### T SH3, PP, ESR, CBC, CMP, CK, ADDONUAPLUS, CRP, T4F #### [facility] [address] [place] [address] [place] #### HBCAB, RPR W RFX, HBSAG, HCV RX PCR, HBSAB, ALDOLASE #### [facility] , Calcium [Mass/volume] in Ser um or PlasmaOrdered By: Pa San on 03-17-2024 Calcium [Mass/Vol] 9.1 mg/dL Normal 8.6-10.3 [facility] Comment on above: Performed By: #### T SH3, PP, ESR, CBC, CMP, CK, ADDONUAPLUS, CRP, T4F #### [facility] [address] [place] [address] #### HBCAB, RPR W RFX, HBSAG, HCV RX PCR, HBSAB, ALDOLASE #### [facility] , Carbon dioxide, total [Moles /volume] in Serum or PlasmaOrdered By: Pa San on 03-17-2024 CO2 [Moles/Vol] 26.0 mmol/L Normal 21.0-31.[address] [facility] Comment on above: Performed By: #### T SH3, PP, ESR, CBC, CMP, CK, ADDONUAPLUS, CRP, T4F #### [facility] [address] [place] [address] #### HBCAB, RPR W RFX, HBSAG, HCV RX PCR, HBSAB, ALDOLASE #### [facility] , Chloride [Moles/volume] in S caity or PlasmaOrdered By: Pa San on 03-17-2024 Chloride [Moles/Vol] 106 mmol/L Normal 98-107 [facility] Comment on above: Performed By: #### T SH3, PP, ESR, CBC, CMP, CK, ADDONUAPLUS, CRP, T4F #### [facility] [address] [place] [address] [place] #### HBCAB, RPR W RFX, HBSAG, HCV RX PCR, HBSAB, ALDOLASE #### [facility] , Chromatin Antibodyon 024 Chromatin Antibody <0.2 Normal 0.0-0.9 [facility] Comment on above: Result Comment: Perf ormed at: CB - [facility] [place] [address] [place], [place] [id number] Side Puller: Mil Guzman PhD, Phone: [phone] PERFORMED BY: [place] [address] PATHOLOGIST MAINTENANCE DEPARTMENT TECHNICIAN JOSE ROGERS M.D. Performed By: #### T SH3, PP, ESR, CBC, CMP, CK, ADDONUAPLUS, CRP, T4F #### [address] #### HBCAB, RPR W RFX, HBSAG, HCV RX PCR, HBSAB, ALDOLASE #### [facility] , Coagulation Profileon 2023 aPTT Coag (Bld) [Time] 34.1 s Normal 25.1-36.5 [facility] Comment on above: Result Comment: A he matocrit value greater than 55% may lead to inaccurate results in coagulation testing. Patients having hematocrit values >55% require a special collection tube for coagulation studies. Please contact the laboratory at [phone] for redraw instructions. PERFORMED BY: [place] [address] PATHOLOGIST MAINTENANCE DEPARTMENT TECHNICIAN JOSE ROGERS M.D. Performed By: #### T SH3, PP, ESR, CBC, CMP, CK, ADDONUAPLUS, CRP, T4F #### [address] #### HBCAB, RPR W RFX, HBSAG, HCV RX PCR, HBSAB, ALDOLASE #### [facility] , Color of Urine by AutoOrdere d By: Pa San on 03-17-2024 Color (U) Yellow Normal Yellow [facility] Comment on above: Order Comment: Name Collection Type:: Clean-Voided Midstream Performed By: #### T SH3, PP, ESR, CBC, CMP, CK, ADDONUAPLUS, CRP, T4F #### [address] #### HBCAB, RPR W RFX, HBSAG, HCV RX PCR, HBSAB, ALDOLASE #### [facility] , Complement C3on 03-17-2024 Complement C3 132 mg/dL Normal 82-167 [facility] Comment on above: Result Comment: Perf ormed at: CB - [facility] [place] [address], [place], [place] [id number] Side Puller: Mil Guzman PhD, Phone: [phone] Performed By: #### T SH3, PP, ESR, CBC, CMP, CK, ADDONUAPLUS, CRP, T4F #### [address] #### HBCAB, RPR W RFX, HBSAG, HCV RX PCR, HBSAB, ALDOLASE #### [facility] , Complement C4on 03-17-2024 Complement C4 26 mg/dL Normal 12-38 [facility] Comment on above: Performed By: #### T SH3, PP, ESR, CBC, CMP, CK, ADDONUAPLUS, CRP, T4F #### [address] #### HBCAB, RPR W RFX, HBSAG, HCV RX PCR, HBSAB, ALDOLASE #### [facility] , Complement Total (CH50)on Complement Total (CH50) >60 Normal >41 [facility] Comment on above: Result Comment: [...] determine out of range values. Performed at: [facility] [id number] Side Puller: Mil Guzman PhD, Phone: [phone] PERFORMED BY: [place] [address] PATHOLOGIST MAINTENANCE DEPARTMENT TECHNICIAN JOSE ROGERS M.D. Performed By: #### T SH3, PP, ESR, CBC, CMP, CK, ADDONUAPLUS, CRP, T4F #### [address] #### HBCAB, RPR W RFX, HBSAG, HCV RX PCR, HBSAB, ALDOLASE #### [facility] , Complete Blood Count Auto Di ffon 03-17-2024 Mean Corpuscular HGB Conc 34.2 g/dL Normal 32.5-35.6 [facility] Comment on above: Performed By: #### T SH3, PP, ESR, CBC, CMP, CK, ADDONUAPLUS, CRP, T4F #### [address] #### HBCAB, RPR W RFX, HBSAG, HCV RX PCR, HBSAB, ALDOLASE #### [facility] , NRBC% 0.2 /100{WBC} Normal 0-0.5 [facility] Comment on above: Performed By: #### T SH3, PP, ESR, CBC, CMP, CK, ADDONUAPLUS, CRP, T4F #### [address] #### HBCAB, RPR W RFX, HBSAG, HCV RX PCR, HBSAB, ALDOLASE #### [facility] , Comprehensive Metabolic Pane solomon 03-17-2024 Albumin [Mass/Vol] 4.6 g/dL Normal 3.5-5.7 [facility] Comment on above: Performed By: #### T SH3, PP, ESR, CBC, CMP, CK, ADDONUAPLUS, CRP, T4F #### [place] [address] [place] #### HBCAB, RPR W RFX, HBSAG, HCV RX PCR, HBSAB, ALDOLASE #### [facility] , GFR/1.73 sq M.predicted MDRD (S/P/Bld) [Vol rate/Area] mL/min/{1.73_m2} Normal [facility] Comment on above: Performed By: #### T SH3, PP, ESR, CBC, CMP, CK, ADDONUAPLUS, CRP, T4F #### [place] [address] [place] #### HBCAB, RPR W RFX, HBSAG, HCV RX PCR, HBSAB, ALDOLASE #### [facility] , Creatine kinase [Enzymatic a ctivity/volume] in Serum or PlasmaOrdered By: Pa Mena on 03-17-2024 CK [Catalytic activity/Vol] 79 U/L Normal 30-223 [facility] Comment on above: Result Comment: PERF ORMED BY: [place] [address] PATHOLOGIST MAINTENANCE DEPARTMENT TECHNICIAN JOSE ROGERS M.D. Performed By: #### T SH3, PP, ESR, CBC, CMP, CK, ADDONUAPLUS, CRP, T4F #### [address] #### HBCAB, RPR W RFX, HBSAG, HCV RX PCR, HBSAB, ALDOLASE #### [facility] , Creatinine [Mass/volume] in Serum or PlasmaOrdered By: Pa San on 03-17-2024 Creatinine [Mass/Vol] 0.85 mg/dL Normal 0.70-1.30 [facility] Comment on above: Performed By: #### T SH3, PP, ESR, CBC, CMP, CK, ADDONUAPLUS, CRP, T4F #### [address] #### HBCAB, RPR W RFX, HBSAG, HCV RX PCR, HBSAB, ALDOLASE #### [facility] , Dipstick and Microscopicon 0 03-17-2024 Appearance (U) Clear Normal Clear [facility] Comment on above: Order Comment: Name Collection Type:: Clean-Voided Midstream Performed By: #### T SH3, PP, ESR, CBC, CMP, CK, ADDONUAPLUS, CRP, T4F #### [address] #### HBCAB, RPR W RFX, HBSAG, HCV RX PCR, HBSAB, ALDOLASE #### [facility] , Bacteria,Urine None Seen Normal None Seen [facility] Comment on above: Order Comment: Name Collection Type:: Clean-Voided Midstream Performed By: #### T SH3, PP, ESR, CBC, CMP, CK, ADDONUAPLUS, CRP, T4F #### [address] #### HBCAB, RPR W RFX, HBSAG, HCV RX PCR, HBSAB, ALDOLASE #### [facility] , Bilirubin,Urine Negative Normal Negative [facility] Comment on above: Order Comment: Name Collection Type:: Clean-Voided Midstream Performed By: #### T SH3, PP, ESR, CBC, CMP, CK, ADDONUAPLUS, CRP, T4F #### [address] #### HBCAB, RPR W RFX, HBSAG, HCV RX PCR, HBSAB, ALDOLASE #### [facility] , Glucose Ql (U) Normal Normal Normal [facility] Comment on above: Order Comment: Name Collection Type:: Clean-Voided Midstream Performed By: #### T SH3, PP, ESR, CBC, CMP, CK, ADDONUAPLUS, CRP, T4F #### [address] #### HBCAB, RPR W RFX, HBSAG, HCV RX PCR, HBSAB, ALDOLASE #### [facility] , Hyaline Casts,Urine None Seen Normal 0-8 [facility] Comment on above: Order Comment: Name Collection Type:: Clean-Voided Midstream Result Comment: PERF ORMED BY: [place] [address] PATHOLOGIST MAINTENANCE DEPARTMENT TECHNICIAN JOSE ROGERS M.D. Performed By: #### T SH3, PP, ESR, CBC, CMP, CK, ADDONUAPLUS, CRP, T4F #### [address] #### HBCAB, RPR W RFX, HBSAG, HCV RX PCR, HBSAB, ALDOLASE #### [facility] , Ketones Ql (U) Negative Normal Negative [facility] Comment on above: Order Comment: Name Collection Type:: Clean-Voided Midstream Performed By: #### T SH3, PP, ESR, CBC, CMP, CK, ADDONUAPLUS, CRP, T4F #### [address] #### HBCAB, RPR W RFX, HBSAG, HCV RX PCR, HBSAB, ALDOLASE #### [facility] , Leukocyte esterase Test strip Ql (U) Negative Normal Negative [facility] Comment on above: Order Comment: Name Collection Type:: Clean-Voided Midstream Performed By: #### T SH3, PP, ESR, CBC, CMP, CK, ADDONUAPLUS, CRP, T4F #### [address] #### HBCAB, RPR W RFX, HBSAG, HCV RX PCR, HBSAB, ALDOLASE #### [facility] , Nitrite,Urine Negative Normal Negative [facility] Comment on above: Order Comment: Name Collection Type:: Clean-Voided Midstream Performed By: #### T SH3, PP, ESR, CBC, CMP, CK, ADDONUAPLUS, CRP, T4F #### [address] #### HBCAB, RPR W RFX, HBSAG, HCV RX PCR, HBSAB, ALDOLASE #### [facility] , Occult Blood,Urine Negative Normal Negative [facility] Comment on above: Order Comment: Name Collection Type:: Clean-Voided Midstream Performed By: #### T SH3, PP, ESR, CBC, CMP, CK, ADDONUAPLUS, CRP, T4F #### [address] #### HBCAB, RPR W RFX, HBSAG, HCV RX PCR, HBSAB, ALDOLASE #### [facility] , Protein,Urine Negative Normal Negative [facility] Comment on above: Order Comment: Name Collection Type:: Clean-Voided Midstream Performed By: #### T SH3, PP, ESR, CBC, CMP, CK, ADDONUAPLUS, CRP, T4F #### [address] #### HBCAB, RPR W RFX, HBSAG, HCV RX PCR, HBSAB, ALDOLASE #### [facility] , RBC LM.HPF (Urine sed) [#/Area] 0 /[HPF] Normal 0-4 [facility] Comment on above: Order Comment: Name Collection Type:: Clean-Voided Midstream Performed By: #### T SH3, PP, ESR, CBC, CMP, CK, ADDONUAPLUS, CRP, T4F #### [address] #### HBCAB, RPR W RFX, HBSAG, HCV RX PCR, HBSAB, ALDOLASE #### [facility] , Specificy [place],Urine 1.014 Normal 1.001-1.030 [facility] Comment on above: Order Comment: Name Collection Type:: Clean-Voided Midstream Performed By: #### T SH3, PP, ESR, CBC, CMP, CK, ADDONUAPLUS, CRP, T4F #### [address] #### HBCAB, RPR W RFX, HBSAG, HCV RX PCR, HBSAB, ALDOLASE #### [facility] , Squamous Epithelial Cell,Urine None Seen Normal 0-2 [facility] Comment on above: Order Comment: Name Collection Type:: Clean-Voided Midstream Performed By: #### T SH3, PP, ESR, CBC, CMP, CK, ADDONUAPLUS, CRP, T4F #### [address] #### HBCAB, RPR W RFX, HBSAG, HCV RX PCR, HBSAB, ALDOLASE #### [facility] , Urobilinogen,Urine Normal Normal Normal [facility] Comment on above: Order Comment: Name Collection Type:: Clean-Voided Midstream Performed By: #### T SH3, PP, ESR, CBC, CMP, CK, ADDONUAPLUS, CRP, T4F #### [address] #### HBCAB, RPR W RFX, HBSAG, HCV RX PCR, HBSAB, ALDOLASE #### [facility] , WBC,Urine None Seen Normal 0-4 [facility] Comment on above: Order Comment: Name Collection Type:: Clean-Voided Midstream Performed By: #### T SH3, PP, ESR, CBC, CMP, CK, ADDONUAPLUS, CRP, T4F #### [address] #### HBCAB, RPR W RFX, HBSAG, HCV RX PCR, HBSAB, ALDOLASE #### [facility] , Erythrocyte Sedimentation Ra elijah 03-17-2024 ESR (Bld) [Velocity] 32 mm/h High 0-19 [facility] Comment on above: Result Comment: PERF ORMED BY: [place] [address] PATHOLOGIST MAINTENANCE DEPARTMENT TECHNICIAN JOSE ROGERS M.D. Performed By: #### T SH3, PP, ESR, CBC, CMP, CK, ADDONUAPLUS, CRP, T4F #### [address] #### HBCAB, RPR W RFX, HBSAG, HCV RX PCR, HBSAB, ALDOLASE #### [facility] , Erythrocyte distribution wid th [Ratio] by Automated countOrdered By: Pa San on 03-17-2024 Erythrocyte distribution width (RBC) [Ratio] 13.5 % Normal 12.0-14.8 [facility] Comment on above: Performed By: #### T SH3, PP, ESR, CBC, CMP, CK, ADDONUAPLUS, CRP, T4F #### [place] [id number] [place] #### HBCAB, RPR W RFX, HBSAG, HCV RX PCR, HBSAB, ALDOLASE #### [facility] , Erythrocyte sedimentation ra te by Photometric methodOrdered By: Pa San on 03-17-2024 ESR Photometric method (Bld) [Velocity] 32 mm/hr High 0-19 [facility] Erythrocytes [#/area] in Uri ne sediment by Automated countOrdered By: Pa San on 03-17-2024 RBC Auto (Urine sed) [#/Area] 0-1 [HPF] 0-4 [facility] Erythrocytes [#/volume] in B lood by Automated countOrdered By: Pa San on 03-17-2024 RBC (Bld) [#/Vol] 4.88 10*6/uL Normal 3.90-5.60 [facility] Comment on above: Performed By: #### T SH3, PP, ESR, CBC, CMP, CK, ADDONUAPLUS, CRP, T4F #### [facility] [address] [place] [address] #### HBCAB, RPR W RFX, HBSAG, HCV RX PCR, HBSAB, ALDOLASE #### [facility] , Glucose [Mass/volume] in Ser um or PlasmaOrdered By: Pa Blackmanrow on 03-17-2024 Glucose [Mass/Vol] 88 mg/dL Normal 70-100 [facility] Comment on above: ADA recommended refe rence rangeRandom Glucose Reference Range is dependent on time and content of last meal. Glucose of more than 200 mg/dL in a nonstressed, ambulatory subject supports the diagnosis of Diabetes Mellitus. Result Comment: [place] om Glucose Reference Range is dependent on time and content of last meal. Glucose of more than 200 mg/dL in a nonstressed, ambulatory subject supports the diagnosis of Diabetes Mellitus. ADA recommended reference range Performed By: #### T SH3, PP, ESR, CBC, CMP, CK, ADDONUAPLUS, CRP, T4F #### [facility] [address] [place] [address] [place] #### HBCAB, RPR W RFX, HBSAG, HCV RX PCR, HBSAB, ALDOLASE #### [facility] , Hematocrit [Volume Fraction] of Blood by Automated countOrdered By: Pa San on 03-17-2024 Hematocrit (Bld) [Volume fraction] 46.7 % Normal 38.8-50.0 [facility] Comment on above: Performed By: #### T SH3, PP, ESR, CBC, CMP, CK, ADDONUAPLUS, CRP, T4F #### [facility] [address] #### HBCAB, RPR W RFX, HBSAG, HCV RX PCR, HBSAB, ALDOLASE #### [facility] , Hemoglobin [Mass/volume] in BloodOrdered By: Pa San on 03-17-2024 Hemoglobin (Bld) [Mass/Vol] 16.0 g/dL Normal 13.0-17.0 [facility] Comment on above: Performed By: #### T SH3, PP, ESR, CBC, CMP, CK, ADDONUAPLUS, CRP, T4F #### [address] #### HBCAB, RPR W RFX, HBSAG, HCV RX PCR, HBSAB, ALDOLASE #### [facility] , Hep C Ab wRfx to Qnt PCRon 0 03-17-2024 Hepatitis C Virus Antibody Non-Reactive Normal Non Reactive [facility] Comment on above: Performed By: #### T SH3, PP, ESR, CBC, CMP, CK, ADDONUAPLUS, CRP, T4F #### [facility] [address] [place] [address] #### HBCAB, RPR W RFX, HBSAG, HCV RX PCR, HBSAB, ALDOLASE #### [facility] , Interpretation Hepatitis C Comment Normal . [facility] Comment on above: Result Comment: Not infected with HCV unless early or acute infection is suspected (which may be delayed in an immunocompromised individual), or other evidence exists to indicate HCV infection. Performed By: #### T SH3, PP, ESR, CBC, CMP, CK, ADDONUAPLUS, CRP, T4F #### [address] #### HBCAB, RPR W RFX, HBSAG, HCV RX PCR, HBSAB, ALDOLASE #### [facility] , Hepatitis B Core Antibodyon 03-17-2024 Hepatitis B Core Antibody Negative Normal Negative [facility] Comment on above: Result Comment: Perf ormed at: [facility] [address] [id number] Side Puller: Mil Guzman PhD, Phone: [phone] Performed By: #### T SH3, PP, ESR, CBC, CMP, CK, ADDONUAPLUS, CRP, T4F #### [address] #### HBCAB, RPR W RFX, HBSAG, HCV RX PCR, HBSAB, ALDOLASE #### [facility] , Hepatitis B Surface Antibody on 03-17-2024 Hepatitis B Surface Antibody Non-Reactive Normal . [facility] Comment on above: Result Comment: Non Reactive: Inconsistent with immunity, less than 10 mIU/mL Reactive: Consistent with immunity, greater than 9.9 mIU/mL Performed By: #### T SH3, PP, ESR, CBC, CMP, CK, ADDONUAPLUS, CRP, T4F #### [facility] [address] [place] [address] [place] #### HBCAB, RPR W RFX, HBSAG, HCV RX PCR, HBSAB, ALDOLASE #### [facility] , Hepatitis B Surface Antigeno n 03-17-2024 HBsAg Screen Negative Normal Negative [facility] Comment on above: Result Comment: PERF ORMED BY: [place] [address] PATHOLOGIST MAINTENANCE DEPARTMENT TECHNICIAN JOSE ROGERS M.D. Performed By: #### T SH3, PP, ESR, CBC, CMP, CK, ADDONUAPLUS, CRP, T4F #### [address] [place] [address] [place] #### HBCAB, RPR W RFX, HBSAG, HCV RX PCR, HBSAB, ALDOLASE #### [facility] , INR in Platelet poor plasma by Coagulation assayOrdered By: Pa San on 03-17-2024 INR Coag (PPP) [Relative time] 1.0 {INR} Normal [facility] Comment on above: INR Therapeutic Rang e [...] CBC, CMP, CK, ADDONUAPLUS, CRP, T4F #### [facility] [address] [place] [address] [place] #### HBCAB, RPR W RFX, HBSAG, HCV RX PCR, HBSAB, ALDOLASE #### [facility] , Ketones Auto test strip (U) [Mass/Vol]Ordered By: Pa San on 03-17-2024 Ketones (U) [Mass/Vol] Negative Negative [facility] - UrinalysisOrder ed By: Pa San on 03-17-2024 Hyaline casts LM Ql (Urine sed) None seen [LPF] 0-8 [facility] Leukocytes [#/area] in Urine sediment by Automated countOrdered By: Pa San on 03-17-2024 WBC Auto (Urine sed) [#/Area] None seen [HPF] 0-4 [facility] Leukocytes [#/volume] correc ameya for nucleated erythrocytes in Blood by Automated counOrdered By: Pa San on 03-17-2024 WBC corrected for nucl RBC Auto (Bld) [#/Vol] 6.5 10*3/uL 4.1-10.5 [facility] Leukocytes [#/volume] in Blo od by Automated countOrdered By: Pa San on 03-17-2024 WBC (Bld) [#/Vol] 6.5 10*3/uL Normal 4.1-10.5 [facility] Comment on above: Performed By: #### T SH3, PP, ESR, CBC, CMP, CK, ADDONUAPLUS, CRP, T4F #### [facility] [address] [place] [address] #### HBCAB, RPR W RFX, HBSAG, HCV RX PCR, HBSAB, ALDOLASE #### [facility] , Lupus Anticoagulant Compon 0 03-17-2024 Dilute Prothrombin Time (dPt) 35.0 Normal 0.0-47.6 [facility] Comment on above: Performed By: #### T SH3, PP, ESR, CBC, CMP, CK, ADDONUAPLUS, CRP, T4F #### [facility] [address] [place] [address] #### HBCAB, RPR W RFX, HBSAG, HCV RX PCR, HBSAB, ALDOLASE #### [facility] , dPT Confirm Ratio 1.04 Normal 0.00-1.34 [facility] Comment on above: Performed By: #### T SH3, PP, ESR, CBC, CMP, CK, ADDONUAPLUS, CRP, T4F #### [facility] [address] [place] [address] [place] #### HBCAB, RPR W RFX, HBSAG, HCV RX PCR, HBSAB, ALDOLASE #### [facility] , DRVVT Lupus 31.6 Normal 0.0-47.0 [facility] Comment on above: Performed By: #### T SH3, PP, ESR, CBC, CMP, CK, ADDONUAPLUS, CRP, T4F #### [place] [address] [place] #### HBCAB, RPR W RFX, HBSAG, HCV RX PCR, HBSAB, ALDOLASE #### [facility] , Interpretation Comment: Normal . [facility] Comment on above: Result Comment: No l upus anticoagulant was detected. Performed at: - [address] [id number] Side Puller: Elvira Barajas MD, Phone: [phone] PERFORMED BY: [place] [address] PATHOLOGIST MAINTENANCE DEPARTMENT TECHNICIAN JOSE ROGERS M.D. Performed By: #### T SH3, PP, ESR, CBC, CMP, CK, ADDONUAPLUS, CRP, T4F #### [address] #### HBCAB, RPR W RFX, HBSAG, HCV RX PCR, HBSAB, ALDOLASE #### [facility] , PTT-LA 37.6 Normal 0.0-43.5 [facility] Comment on above: Performed By: #### T SH3, PP, ESR, CBC, CMP, CK, ADDONUAPLUS, CRP, T4F #### [address] #### HBCAB, RPR W RFX, HBSAG, HCV RX PCR, HBSAB, ALDOLASE #### [facility] , Thrombin Time 17.0 Normal 0.0-23.0 [facility] Comment on above: Performed By: #### T SH3, PP, ESR, CBC, CMP, CK, ADDONUAPLUS, CRP, T4F #### [address] #### HBCAB, RPR W RFX, HBSAG, HCV RX PCR, HBSAB, ALDOLASE #### [facility] , Lymphocytes [#/volume] in Bl ood by Automated countOrdered By: Pa San on 03-17-2024 Lymphocytes (Bld) [#/Vol] 1.6 10*3/uL Normal 1.00-4.8 [facility] Comment on above: Performed By: #### T SH3, PP, ESR, CBC, CMP, CK, ADDONUAPLUS, CRP, T4F #### [address] #### HBCAB, RPR W RFX, HBSAG, HCV RX PCR, HBSAB, ALDOLASE #### [facility] , Lymphocytes/100 leukocytes i n Blood by Automated countOrdered By: Pa Blackmanrow on 03-17-2024 Lymphocytes/100 WBC (Bld) 24.5 % Normal . [facility] Comment on above: Performed By: #### T SH3, PP, ESR, CBC, CMP, CK, ADDONUAPLUS, CRP, T4F #### [place] [address] [place] #### HBCAB, RPR W RFX, HBSAG, HCV RX PCR, HBSAB, ALDOLASE #### [facility] , MCH [Entitic mass] by Automa ameya countOrdered By: Pa Mena on 03-17-2024 MCH (RBC) [Entitic mass] 32.7 pg Normal 27.5-35.2 [facility] Comment on above: Performed By: #### T SH3, PP, ESR, CBC, CMP, CK, ADDONUAPLUS, CRP, T4F #### [place] [address] [place] #### HBCAB, RPR W RFX, HBSAG, HCV RX PCR, HBSAB, ALDOLASE #### [facility] , MCHC Auto (RBC) [Mass/Vol]Or dered By: Pa San on 03-17-2024 MCHC (RBC) [Mass/Vol] 34.2 g/dL 32.5-35.6 [facility] MCV [Entitic volume] by Auto mated countOrdered By: Pa San on 03-17-2024 MCV (RBC) [Entitic vol] 95.7 fL Normal 83.5-101 [facility] Comment on above: Performed By: #### T SH3, PP, ESR, CBC, CMP, CK, ADDONUAPLUS, CRP, T4F #### [facility] [address] [place] [address] #### HBCAB, RPR W RFX, HBSAG, HCV RX PCR, HBSAB, ALDOLASE #### [facility] , Neutrophils [#/volume] in Bl ood by Automated countOrdered By: Pa San on 03-17-2024 Neutrophils (Bld) [#/Vol] 4.1 10*3/uL Normal 1.8-7.7 [facility] Comment on above: Performed By: #### T SH3, PP, ESR, CBC, CMP, CK, ADDONUAPLUS, CRP, T4F #### [facility] [address] [place] [address] #### HBCAB, RPR W RFX, HBSAG, HCV RX PCR, HBSAB, ALDOLASE #### [facility] , Nitrite Test strip Ql (U)Ord ered By: Pa San on 03-17-2024 Nitrite Ql (U) Negative Negative [facility] No Panel InformationOrdered By: Pa San on 03-17-2024 Estimated GFR (CKD-EPI) > 60.0 mL/Min [facility] Creatinine Clearance (Chem N/A [facility] Nucleated erythrocytes [Pres ence] in Blood by Automated countOrdered By: Pa San on 03-17-2024 Nucleated RBC Auto Ql (Bld) 0.2 /100{WBC} 0-0.5 [facility] Platelet mean volume [Entiti c volume] in Blood by Automated countOrdered By: Pa San on 03-17-2024 Platelet mean volume (Bld) [Entitic vol] 8.9 fL Normal 6.6-10.1 [facility] Comment on above: Performed By: #### T SH3, PP, ESR, CBC, CMP, CK, ADDONUAPLUS, CRP, T4F #### [facility] [address] [place] [address] [place] #### HBCAB, RPR W RFX, HBSAG, HCV RX PCR, HBSAB, ALDOLASE #### [facility] , Platelets [#/volume] in Bloo d by Automated countOrdered By: Pa San on 03-17-2024 Platelets (Bld) [#/Vol] 258 10*3/uL Normal 150-450 [facility] Comment on above: Performed By: #### T SH3, PP, ESR, CBC, CMP, CK, ADDONUAPLUS, CRP, T4F #### [facility] [address] [place] [address] #### HBCAB, RPR W RFX, HBSAG, HCV RX PCR, HBSAB, ALDOLASE #### [facility] , Potassium [Moles/volume] in Serum or PlasmaOrdered By: Pa Blackmanrow on 03-17-2024 Potassium [Moles/Vol] 4.8 mmol/L Normal 3.5-5.1 [facility] Comment on above: Performed By: #### T SH3, PP, ESR, CBC, CMP, CK, ADDONUAPLUS, CRP, T4F #### [facility] [address] [place] [address] #### HBCAB, RPR W RFX, HBSAG, HCV RX PCR, HBSAB, ALDOLASE #### [facility] , Protein Auto test strip (U) [Mass/Vol]Ordered By: Pa Blackmanrow on 03-17-2024 Protein (U) [Mass/Vol] Negative Negative [facility] Protein [Mass/volume] in Ser um or PlasmaOrdered By: Pa Blackmanrow on 03-17-2024 Protein [Mass/Vol] 7.6 g/dL Normal 6.4-8.9 [facility] Comment on above: Performed By: #### T SH3, PP, ESR, CBC, CMP, CK, ADDONUAPLUS, CRP, T4F #### [facility] [address] [place] [address] [place] #### HBCAB, RPR W RFX, HBSAG, HCV RX PCR, HBSAB, ALDOLASE #### [facility] , Prothrombin time (PT)Ordered By: Pa San on 03-17-2024 PT Coag (PPP) [Time] 11.3 s Normal 9.0-12.9 [facility] Comment on above: A hematocrit value g reater than 55% may lead to inaccurate results in coagulation testing. Patients having hematocrit values >55% require a special collection tube for coagulation studies. Please contact the laboratory at [phone] for redraw instructions. Result Comment: A he matocrit value greater than 55% may lead to inaccurate results in coagulation testing. Patients having hematocrit values >55% require a special collection tube for coagulation studies. Please contact the laboratory at [phone] for redraw instructions. Performed By: #### T SH3, PP, ESR, CBC, CMP, CK, ADDONUAPLUS, CRP, T4F #### [facility] [address] [place] [address] #### HBCAB, RPR W RFX, HBSAG, HCV RX PCR, HBSAB, ALDOLASE #### [facility] , RPR w/rfx to Quant TP Abson 03-17-2024 RPR, Rfx Quant RPR Non-Reactive Normal Non Reactive [facility] Comment on above: Result Comment: Perf ormed at: - [facility] [address] [id number] Side Puller: Mil Guzman PhD, Phone: [phone] PERFORMED BY: [place] [address] PATHOLOGIST MAINTENANCE DEPARTMENT TECHNICIAN JOSE ROGERS M.D. Performed By: #### T SH3, PP, ESR, CBC, CMP, CK, ADDONUAPLUS, CRP, T4F #### [facility] [address] [place] [address] #### HBCAB, RPR W RFX, HBSAG, HCV RX PCR, HBSAB, ALDOLASE #### [facility] , Serum globulin measurement b y calculation (mass/volume)Ordered By: Pa San on 03-17-2024 Globulin (S) [Mass/Vol] 3.0 g/dL [facility] Comment on above: Performed By: #### T SH3, PP, ESR, CBC, CMP, CK, ADDONUAPLUS, CRP, T4F #### [address] #### HBCAB, RPR W RFX, HBSAG, HCV RX PCR, HBSAB, ALDOLASE #### [facility] , Serum or plasma albumin/glob ulin mass ratioOrdered By: Pa San on 03-17-2024 Albumin/Globulin [Mass ratio] 1.5 {ratio} [facility] Comment on above: Performed By: #### T SH3, PP, ESR, CBC, CMP, CK, ADDONUAPLUS, CRP, T4F #### [address] #### HBCAB, RPR W RFX, HBSAG, HCV RX PCR, HBSAB, ALDOLASE #### [facility] , Serum or plasma anion gap de terminationOrdered By: Pa San on 03-17-2024 Anion gap [Moles/Vol] 12.8 mmol/L Normal 6.0-15.0 [facility] Comment on above: Performed By: #### T SH3, PP, ESR, CBC, CMP, CK, ADDONUAPLUS, CRP, T4F #### [facility] [address] [place] [address] [place] #### HBCAB, RPR W RFX, HBSAG, HCV RX PCR, HBSAB, ALDOLASE #### [facility] , Sodium [Moles/volume] in Ser um or PlasmaOrdered By: Pa San on 03-17-2024 Sodium [Moles/Vol] 140 mmol/L Normal 136-145 [facility] Comment on above: Performed By: #### T SH3, PP, ESR, CBC, CMP, CK, ADDONUAPLUS, CRP, T4F #### [place] [address] [place] #### HBCAB, RPR W RFX, HBSAG, HCV RX PCR, HBSAB, ALDOLASE #### [facility] , Specific gravity Auto test s trip (U) [Rel density]Ordered By: Pa San on 03-17-2024 Specific gravity (U) [Rel density] 1.014 1.001-1.030 [facility] Thyroid Peroxidase Antibodie son 03-17-2024 Thyroid Peroxidase Antibodies <9 Normal 0-34 [facility] Comment on above: Result Comment: Perf ormed at: - [facility] [address] [id number] Side Puller: Mil Guzman PhD, Phone: [phone] Performed By: #### T SH3, PP, ESR, CBC, CMP, CK, ADDONUAPLUS, CRP, T4F #### [address] #### HBCAB, RPR W RFX, HBSAG, HCV RX PCR, HBSAB, ALDOLASE #### [facility] , Thyrotropin [Units/volume] i n Serum or PlasmaOrdered By: Pa San on 03-17-2024 TSH Qn 3.54 m[IU]/L Normal 0.45-5.33 [facility] Comment on above: Result Comment: PERF ORMED BY: [place] [address] PATHOLOGIST MAINTENANCE DEPARTMENT TECHNICIAN JOSE ROGERS M.D. Performed By: #### T SH3, PP, ESR, CBC, CMP, CK, ADDONUAPLUS, CRP, T4F #### [facility] [address] [place] [address] [place] #### HBCAB, RPR W RFX, HBSAG, HCV RX PCR, HBSAB, ALDOLASE #### [facility] , Thyroxine (T4) free [Mass/vo lume] in Serum or PlasmaOrdered By: Pa San on 03-17-2024 Free T4 [Mass/Vol] 0.78 ng/dL Normal 0.61-1.12 [facility] Comment on above: Performed By: #### T SH3, PP, ESR, CBC, CMP, CK, ADDONUAPLUS, CRP, T4F #### [facility] [address] [place] [address] #### HBCAB, RPR W RFX, HBSAG, HCV RX PCR, HBSAB, ALDOLASE #### [facility] , Urea nitrogen [Mass/volume] in Serum or PlasmaOrdered By: Pa San on 03-17-2024 Urea nitrogen [Mass/Vol] 11 mg/dL Normal 7-25 [facility] Comment on above: Performed By: #### T SH3, PP, ESR, CBC, CMP, CK, ADDONUAPLUS, CRP, T4F #### [address] #### HBCAB, RPR W RFX, HBSAG, HCV RX PCR, HBSAB, ALDOLASE #### [facility] , Urine clarity by refractomet ry automatedOrdered By: Pa San on 03-17-2024 Clarity Refractometry automated (U) Clear Clear [facility] Urine glucose measurement by automated test strip (mass/volume)Ordered By: Pa San on 03-17-2024 Glucose Auto test strip (U) [Mass/Vol] Normal mg/dL Normal [facility] Urine hemoglobin detection b y automated test stripOrdered By: Pa San on 03-17-2024 Hemoglobin Auto test strip Ql (U) Negative Negative [facility] Urine leukocyte esterase det ection by automated test stripOrdered By: Pa San on 03-17-2024 Leukocyte esterase Auto test strip Ql (U) Negative Negative [facility] Urine pH measurement by auto mated test stripOrdered By: Pa San on 03-17-2024 pH (U) 5.5 [pH] Normal 5.0-9.0 [facility] Comment on above: Order Comment: Name Collection Type:: Clean-Voided Midstream Performed By: #### T SH3, PP, ESR, CBC, CMP, CK, ADDONUAPLUS, CRP, T4F #### [place] [id number] [place] #### HBCAB, RPR W RFX, HBSAG, HCV RX PCR, HBSAB, ALDOLASE #### [facility] , Urobilinogen Auto test strip (U) [Mass/Vol]Ordered By: Pa San on 03-17-2024 Urobilinogen (U) [Mass/Vol] Normal mg/dL Normal [facility] Lipid 1996 panelon Cholesterol [Mass/Vol] 179 mg/dL Normal 150-200 [facility] Comment on above: Performed By: #### C BCA, 04399-1, 37646-6, CMP, 3084-1, HA1C, 84157-7, 22070-5, 5130-0, 08408-7, 69766-0, 56001-7 #### [facility] ([id number]) [address] [facility], [address] [place] [address] Cholesterol in HDL [Mass/Vol] 55 mg/dL Normal >39 [facility] Comment on above: Result Comment: HDL <40 mg/dL - High Risk HDL > or = 40mg/dL- Desirable HDL >60 mg/dL - Negative Risk Performed By: #### C BCA, 63280-1, 42603-9, CMP, 3084-1, HA1C, 84886-1, 89938-6, 5130-0, 84837-0, 99715-6, 21491-7 #### [facility] ([id number]) [address] [facility], [address] [place] [address] Cholesterol in LDL [Mass/Vol] 107 mg/dL Normal <130 [facility] Comment on above: Result Comment: LDL <100 mg/dL - Desirable LDL >160 mg/dL - High Risk Performed By: #### C BCA, 04383-5, 89442-6, CMP, 3084-1, HA1C, 56524-0, 41715-5, 5130-0, 31082-8, 54057-1, 39144-1 #### [facility] ([id number]) [address] [facility], [address] [place] [address] Cholesterol in VLDL [Mass/Vol] 17 mg/dL Normal 0-30 [facility] Comment on above: Performed By: #### C BCA, 51389-5, 83173-9, CMP, 3084-1, HA1C, 44912-7, 75795-4, 5130-0, 63774-8, 20634-0, 32024-1 #### [facility] ([id number]) [address] [facility], [address] [place] [address] CHOLESTEROL:HDL 3.3 Normal 1.0-5.0 [facility] Comment on above: Performed By: #### C BCA, 20875-1, 64861-4, CMP, 3084-1, HA1C, 26845-3, 28100-9, 5130-0, 19249-1, 42345-0, 96160-5 #### [facility] ([id number]) [address] [facility], [address] [place] [address] Triglyceride [Mass/Vol] 87 mg/dL Normal 27-150 [facility] Comment on above: Performed By: #### C BCA, 76948-0, 00501-7, CMP, 3084-1, HA1C, 45830-9, 74328-8, 5130-0, 65851-8, 63798-1, 38791-9 #### [facility] ([id number]) [address] [facility], [address] [place] [address] Prostate specific Ag [Mass/V ol]on 02-01-2024 PSA SCREEN 0.57 ng/mL Normal 0.00-4.00 [facility] Comment on above: Result Comment: The method used for this test is Eliud Rixford DXI chemiluminescent immunoassay. Values obtained by different assay methods cannot be used interchangeably. Performed By: #### C BCA, 94775-8, 18265-6, CMP, 3084-1, HA1C, 38377-2, 91167-6, 5130-0, 57049-8, 42278-3, 42784-5 #### [facility] ([id number]) [address] [facility], [address] [place] [address] CBC AND AUTO DIFFon 12-30-19 24 ABSOLUTE BASOPHIL 0.1 X10E9/L Normal 0.0-0.2 [facility] Comment on above: Performed By: #### C GARRY, 02113-6, 11155-3, CMP, 3084-1, HA1C, 07844-3, 67418-9, 5130-0, 67752-7, 00281-7, 01228-5 #### [facility] ([id number]) [address], [address] [place] [address] ABSOLUTE NEUTROPHIL 3.7 X10E9/L Normal 1.5-6.6 [facility] Comment on above: Performed By: #### C BCA, 17492-0, 44890-6, CMP, 3084-1, HA1C, 10276-4, 53245-3, 5130-0, 17071-3, 68278-7, 01683-0 #### [facility] ([id number]) [address], [address] [place] [address] Basophils/100 WBC (Bld) 1.0 % Normal [facility] Comment on above: Performed By: #### C BCA, 39009-8, 77252-0, CMP, 3084-1, HA1C, 64694-9, 64262-1, 5130-0, 26346-4, 55783-7, 67777-5 #### [facility] ([id number]) [address] [facility], [address] [place] [address] Eosinophils (Bld) [#/Vol] 0.1 10*3/uL Normal 0.0-0.4 [facility] Comment on above: Performed By: #### C BCA, 52761-0, 97977-8, CMP, 3084-1, HA1C, 50744-6, 32367-0, 5130-0, 08674-4, 32641-3, 17519-0 #### [facility] ([id number]) [address] [facility], [address] [place] [address] Eosinophils/100 WBC (Bld) 2.3 % Normal [facility] Comment on above: Performed By: #### C BCA, 03419-4, 41376-7, CMP, 3084-1, HA1C, 08881-1, 48691-4, 5130-0, 00477-3, 94046-2, 31968-6 #### [facility] ([id number]) [address] [facility], [address] [place] [address] Erythrocyte distribution width (RBC) [Ratio] 14.1 % Normal 11.5-15.0 [facility] Comment on above: Performed By: #### C BCA, 54817-2, 59236-6, CMP, 3084-1, HA1C, 65209-0, 10953-1, 5130-0, 33707-1, 77955-9, 41051-1 #### [facility] ([id number]) [address] [facility], [address] [place] [address] Hematocrit (Bld) [Volume fraction] 46.5 % Normal 39-49 [facility] Comment on above: Performed By: #### C BCA, 35732-3, 33029-9, CMP, 3084-1, HA1C, 43793-9, 37875-5, 5130-0, 60335-6, 56259-0, 26741-9 #### [facility] ([id number]) [address], [address] [place] [address] Hemoglobin (Bld) [Mass/Vol] 15.8 g/dL Normal 13.0-17.0 [facility] Comment on above: Performed By: #### C BCA, 93335-2, 86442-3, CMP, 3084-1, HA1C, 28065-6, 78407-2, 5130-0, 83691-3, 59929-6, 45506-3 #### [facility] ([id number]) [address], [address] [place] [address] Lymphocytes (Bld) [#/Vol] 1.5 10*3/uL Normal 1.0-3.5 [facility] Comment on above: Performed By: #### C BCA, 78321-4, 19470-0, CMP, 3084-1, HA1C, 75001-6, 55852-8, 5130-0, 72854-4, 31561-9, 38466-7 #### [facility] ([id number]) [address], [address] [place] [address] Lymphocytes/100 WBC (Bld) 25.1 % Normal [facility] Comment on above: Performed By: #### C BCA, 00843-0, 29812-9, CMP, 3084-1, HA1C, 83611-4, 25312-8, 5130-0, 74852-9, 41538-4, 03941-1 #### [facility] ([id number]) [address], [address] [place] [address] MCH (RBC) [Entitic mass] 32.2 pg Normal 27-34 [facility] Comment on above: Performed By: #### C BCA, 42648-3, 60043-6, CMP, 3084-1, HA1C, 35725-4, 64780-7, 5130-0, 70600-5, 46880-1, 64969-4 #### [facility] ([id number]) [address] [facility], [address] [place] [address] MCHC (RBC) [Mass/Vol] 33.9 g/dL Normal 32-36 [facility] Comment on above: Performed By: #### C GARRY, 60835-0, 43987-6, CMP, 3084-1, HA1C, 49905-7, 97651-4, 5130-0, 76398-5, 71544-0, 89733-8 #### [facility] ([id number]) [address] [facility], [address] [place] [address] MCV (RBC) [Entitic vol] 95 fL Normal 80-100 [facility] Comment on above: Performed By: #### C GARRY, 17459-7, 42703-1, CMP, 3084-1, HA1C, 68936-8, 81429-8, 5130-0, 33085-0, 23646-1, 05376-2 #### [facility] ([id number]) [address] [facility], [address] [place] [address] Monocytes (Bld) [#/Vol] 0.4 10*3/uL Normal 0-0.9 [facility] Comment on above: Performed By: #### C GARRY, 02773-3, 69356-2, CMP, 3084-1, HA1C, 46990-3, 59897-3, 5130-0, 30038-1, 34673-9, 56629-3 #### [facility] ([id number]) [address] [facility], [address] [place] [address] Monocytes/100 WBC (Bld) 7.6 % Normal [facility] Comment on above: Performed By: #### C BCA, 27771-3, 63115-1, CMP, 3084-1, HA1C, 46405-0, 98923-7, 5130-0, 27356-4, 92308-2, 80463-4 #### [facility] ([id number]) [address], [address] [place] [address] Neutrophils/100 WBC (Bld) 64.0 % Normal [facility] Comment on above: Performed By: #### C GARRY, 04821-2, 33425-6, CMP, 3084-1, HA1C, 30782-0, 87822-4, 5130-0, 00614-8, 43144-8, 52066-0 #### [facility] ([id number]) [address] [facility], [address] [place] [address] Platelet mean volume (Bld) [Entitic vol] 8.8 fL Normal 7-12 [facility] Comment on above: Performed By: #### C GARRY, 41717-9, 08638-8, CMP, 3084-1, HA1C, 68203-4, 56706-2, 5130-0, 46485-6, 04854-4, 34336-9 #### [facility] ([id number]) [address], [address] [place] [address] Platelets (Bld) [#/Vol] 265 10*3/uL Normal 150-450 [facility] Comment on above: Performed By: #### C GARRY, 73512-7, 74038-8, CMP, 3084-1, HA1C, 05211-3, 37209-4, 5130-0, 43726-4, 61827-3, 26136-3 #### [facility] ([id number]) [address], [address] [place] [address] RBC COUNT 4.90 X10E12/L Normal 4.10-5.70 [facility] Comment on above: Performed By: #### C GARRY, 67285-6, 48283-0, CMP, 3084-1, HA1C, 77907-0, 97949-5, 5130-0, 85820-1, 64311-9, 03913-5 #### [facility] ([id number]) [address] [facility], [address] [place] [address] WBC (Bld) [#/Vol] 5.8 10*3/uL Normal 4.0-11.0 [facility] Comment on above: Performed By: #### C BCA, 76366-3, 45697-8, CMP, 3084-1, HA1C, 03439-0, 40321-7, 5130-0, 70670-1, 43223-8, 02599-5 #### [facility] ([id number]) [address] [facility], [address] [place] [address] CBC auto differentialon 12-02 Basophils (Bld) [#/Vol] 0.1 10*3/uL [facility] Basophils/100 WBC (Bld) 1.0 % [facility] Eosinophils (Bld) [#/Vol] 0.1 10*3/uL [facility] Eosinophils/100 WBC (Bld) 2.3 % [facility] Erythrocyte distribution width (RBC) [Ratio] 14.1 % 11.5 - 15.0 % [facility] Hematocrit (Bld) [Volume fraction] 46.5 % 39 - 49 % [facility] Hemoglobin (Bld) [Mass/Vol] 15.8 g/dL 13.0 - 17.0 g/dL [facility] Lymphocytes (Bld) [#/Vol] 1.5 10*3/uL [facility] Lymphocytes/100 WBC (Bld) 25.1 % [facility] MCH (RBC) [Entitic mass] 32.2 pg 27 - 34 pg [facility] MCHC (RBC) [Mass/Vol] 33.9 g/dL 32 - 3 6 g/dL [facility] MCV (RBC) [Entitic vol] 95 fL 80 - 100 fL [facility] Monocytes (Bld) [#/Vol] 0.4 10*3/uL [facility] Monocytes/100 WBC (Bld) 7.6 % [facility] Neutrophils (Bld) [#/Vol] 3.7 10*3/uL [facility] Neutrophils/100 WBC (Bld) 64.0 % [facility] Platelet mean volume (Bld) [Entitic vol] 8.8 fL 7 - 12 fL [facility] Platelets (Bld) [#/Vol] 265 10*3/uL [facility] RBC (Bld) [#/Vol] 4.90 10*6/uL [facility] WBC corrected for nucl RBC Auto (Bld) [#/Vol] 5.8 [facility] COMPREHENSIVE METABOLIC PANE Solomon 12-30-2023 Albumin [Mass/Vol] 4.3 g/dL Normal 3.2-5.3 [facility] Comment on above: Performed By: #### C BCA, 19118-1, 96863-1, CMP, 3084-1, HA1C, 67579-9, 52236-6, 5130-0, 80334-4, 15342-6, 68341-9 #### [facility] ([id number]) [address], [address] [place] [address] ALP [Catalytic activity/Vol] 73 U/L Normal 39-130 [facility] Comment on above: Performed By: #### C BCA, 02305-7, 38303-8, CMP, 3084-1, HA1C, 55237-5, 24949-5, 5130-0, 64664-9, 31443-7, 96307-6 #### [facility] ([id number]) [address], [address] [place] [address] ALT [Catalytic activity/Vol] 49 U/L High 0-40 [facility] Comment on above: Performed By: #### C BCA, 10101-2, 45023-7, CMP, 3084-1, HA1C, 44637-7, 48280-6, 5130-0, 38863-4, 63923-9, 57710-2 #### [facility] ([id number]) [address], [address] [place] [address] Anion gap [Moles/Vol] 11 mmol/L Normal 5-15 [facility] Comment on above: Performed By: #### C BCA, 55795-3, 40193-3, CMP, 3084-1, HA1C, 22969-3, 16999-4, 5130-0, 41881-4, 09310-6, 20202-5 #### [facility] ([id number]) [address], [address] [place] [address] AST [Catalytic activity/Vol] 38 U/L Normal 0-41 [facility] Comment on above: Performed By: #### C BCA, 40396-2, 27810-0, CMP, 3084-1, HA1C, 67874-1, 08862-7, 5130-0, 29123-1, 25832-4, 87822-9 #### [facility] ([id number]) [address], [address] [place] [address] Bilirubin [Mass/Vol] 0.7 mg/dL Normal 0.3-1.2 [facility] Comment on above: Performed By: #### C BCA, 17957-1, 96744-3, CMP, 3084-1, HA1C, 46907-9, 91646-3, 5130-0, 54024-3, 86479-6, 99646-6 #### [facility] ([id number]) [address], [address] [place] [address] Calcium [Mass/Vol] 9.2 mg/dL Normal 8.5-10.5 [facility] Comment on above: Performed By: #### C BCA, 55299-9, 66930-3, CMP, 3084-1, HA1C, 13830-4, 63864-8, 5130-0, 62295-9, 18889-5, 20062-7 #### [facility] ([id number]) [address], [address] [place] [address] Chloride [Moles/Vol] 102 mmol/L Normal 98-109 [facility] Comment on above: Performed By: #### C BCA, 86671-5, 66198-4, CMP, 3084-1, HA1C, 51967-1, 87846-1, 5130-0, 21815-4, 79918-5, 81700-7 #### [facility] ([id number]) [address], [address] [place] [address] CO2 [Moles/Vol] 26 mmol/L Normal 22-32 [facility] Comment on above: Performed By: #### C BCA, 41208-4, 98528-7, CMP, 3084-1, HA1C, 54917-8, 34002-9, 5130-0, 24314-2, 63748-5, 11540-6 #### [facility] ([id number]) [address], [address] [place] [address] Creatinine [Mass/Vol] 0.91 mg/dL Normal 0.60-1.30 [facility] Comment on above: Result Comment: METH OD TRACEABLE TO IDMS STANDARD Performed By: #### C BCA, 67590-2, 99612-1, CMP, 3084-1, HA1C, 23481-8, 87631-1, 5130-0, 37767-9, 54793-2, 69533-4 #### [facility] ([id number]) [address], [address] [place] [address] eGFR (CKD-EPI) NON-RACE DEPENDENT >90 Normal >59 [facility] Comment on above: Result Comment: Reported eGFR is based on the CKD-EPI 2020 equation that does not use a race coefficient. Performed By: #### C BCA, 54264-9, 43613-0, CMP, 3084-1, HA1C, 97661-9, 65799-8, 5130-0, 29632-5, 92837-5, 01742-2 #### [facility] ([id number]) [address], [address] [place] [address] Glucose [Mass/Vol] 93 mg/dL Normal 65-99 [facility] Comment on above: Performed By: #### C BCA, 56770-5, 21995-7, CMP, 3084-1, HA1C, 40616-8, 24956-0, 5130-0, 85841-1, 33316-0, 54948-1 #### [facility] ([id number]) [address] [facility], [address] [place] [address] Potassium [Moles/Vol] 4.0 mmol/L Normal 3.5-5.0 [facility] Comment on above: Performed By: #### C BCA, 97456-9, 49296-7, CMP, 3084-1, HA1C, 19444-1, 90898-2, 5130-0, 23778-0, 49341-0, 66418-8 #### [facility] ([id number]) [address] [facility], [address] [place] [address] Protein [Mass/Vol] 7.8 g/dL Normal 6.0-8.0 [facility] Comment on above: Performed By: #### C BCA, 68526-9, 85668-7, CMP, 3084-1, HA1C, 38249-3, 27717-5, 5130-0, 75881-1, 74951-9, 04892-8 #### [facility] ([id number]) [address], [address] [place] [address] Sodium [Moles/Vol] 139 mmol/L Normal 134-146 [facility] Comment on above: Performed By: #### C BCA, 07190-4, 66550-3, CMP, 3084-1, HA1C, 41226-9, 91839-2, 5130-0, 65885-1, 44687-1, 67828-9 #### [facility] ([id number]) [address], [address] [place] [address] Urea nitrogen [Mass/Vol] 11 mg/dL Normal 5-23 [facility] Comment on above: Performed By: #### C BCA, 68011-6, 03505-5, CMP, 3084-1, HA1C, 01675-0, 08243-9, 5130-0, 52682-7, 01708-7, 77571-5 #### [facility] ([id number]) [address] [facility], [address] [place] [address] Chromatin Ab Qlon 12-30-2023 CHROMATIN AB IGG <0.2 Normal <1.0 [facility] Comment on above: Performed By: #### C BCA, 21653-9, 59333-4, CMP, 3084-1, HA1C, 89586-3, 28595-4, 5130-0, 70669-0, 62159-4, 18775-7 #### [facility] ([id number]) [address] [facility], [address] [place] [address] Comprehensive metabolic pane solomon 12-30-2023 Albumin [Mass/Vol] 4.3 g/dL 3.2 - 5.3 g/dL [facility] ALP [Catalytic activity/Vol] 73 U/L 39 - 130 U/L [facility] ALT No additional P-5'-P [Catalytic activity/Vol] 49 U/L High 0 - 40 U/L [facility] Anion gap [Moles/Vol] 11 mmol/L 5 - 15 mmol/L [facility] AST [Catalytic activity/Vol] 38 U/L 0 - 41 U/L [facility] Bilirubin [Mass/Vol] 0.7 mg/dL 0.3 - 1 .2 mg/dL [facility] Calcium [Mass/Vol] 9.2 mg/dL 8.5 - 10. 5 mg/dL [facility] Chloride [Moles/Vol] 102 mmol/L 98 - 10 9 mmol/L [facility] CO2 [Moles/Vol] 26 mmol/L 22 - 32 mmol/L [facility] Creatinine [Mass/Vol] 0.91 mg/dL 0.60 - 1.30 mg/dL [facility] Comment on above: METHOD TRACEABLE TO IDIA STANDARD eGFR (CKD-EPI)non-race dependent - PINF [facility] Comment on above: Reported eGFR is based on the CKD-EPI 2020 equation that does not use a race coefficient. Glucose [Mass/Vol] 93 mg/dL 65 - 99 mg/dL [facility] Interpretation and review of laboratory results Abnormal [facility] Potassium [Moles/Vol] 4.0 mmol/L 3.5 - 5.0 mmol/L [facility] Protein [Mass/Vol] 7.8 g/dL 6.0 - 8.0 g/dL [facility] Sodium [Moles/Vol] 139 mmol/L 134 - 146 mmol/L [facility] Urea nitrogen [Mass/Vol] 11 mg/dL 5 - 23 mg/dL [facility] DNA double strand Ab Qn (S)o n 12-30-2023 DOUBLE STRANDED DNA 1 IU/ML Normal <5 [facility] Comment on above: Result Comment: Interpretation-------- <5 Negative 5-9 Indeterminate >9 Positive Performed By: #### C BCA, 03456-1, 20734-8, CMP, 3084-1, HA1C, 22759-7, 78232-9, 5130-0, 90334-2, 57531-7, 27175-2 #### [facility] ([id number]) [address] [place] [address], [address] [place] [address] ESR Photometric method (Bld) [Velocity]on 12-30-2023 Interpretation and review of laboratory results Abnormal [facility] ESR, ERYTHROCYTE SEDIMENTATION RATE 32 mm/h High 0-20 [facility] Comment on above: Performed By: #### C BCA, 46631-7, 16674-3, CMP, 3084-1, HA1C, 26888-3, 20795-1, 5130-0, 34003-0, 97382-0, 61854-9 #### [facility] ([id number]) [address], [facility] [address] [place] [address] Erythrocyte Sedimentation Ra te (ESR)on 12-30-2023 ESR Photometric method (Bld) [Velocity] 32 mm/h High 0 - 20 mm/h [facility] HGB A1C (GLYCO-HGB)on 2023 Glucose [Mass/Vol] 114 mg/dL Normal [facility] Comment on above: Performed By: #### C BCA, 96408-3, 12425-7, CMP, 3084-1, HA1C, 90803-9, 61435-4, 5130-0, 64004-4, 95918-8, 04627-8 #### [facility] ([id number]) [address], [address] [address] HbA1c (Bld) [Mass fraction] 5.6 % Normal 4.4-5.6 [facility] Comment on above: Result Comment: NOTE ADA Guidelines Result HgbA1c Normal : less than 5.7 % Prediabetes : 5.7 % to 6.4 % Diabetes : > 6.4 % Use with caution in patients with abnormal hemoglobin variants as the half-life of red blood cells and in vivo glycation rates are affected. Performed By: #### C BCA, 77791-2, 52403-2, CMP, 3084-1, HA1C, 46084-4, 69180-8, 5130-0, 88178-4, 72153-5, 29790-2 #### [facility] ([id number]) [address], [address] [address] No Panel Informationon 12-29 [facility] Nuclear Ab IA Ql (S)on 12-29 CATHY Screen w/reflex Positive Abnormal NEG [facility] Comment on above: Result Comment: Testing performed using multiplex flow immunoassay. Eleven different antigens associated with systemic autoimmune diseases (dsDNA,Sm,Sm/SHIP ENGINES OPERATING ENGINEER,SHIP ENGINES OPERATING ENGINEER,Chromatin, SSA,SSB,Claritza-1,Scl70,Ribo P,Centromere B) are included in this screening test. Performed By: #### C GARRY, 83561-4, 91443-5, CMP, 3084-1, HA1C, 93362-4, 39176-2, 5130-0, 60071-8, 12938-5, 76674-0 #### [facility] ([id number]) [address] [facility], [address] [place] [address] Rheumatoid factoron 12-30-19 Rheumatoid factor Nephelometry Qn (S) [facility] Rheumatoid factor Nephelomet ry Qn (S)on 12-30-2023 [facility] RHEUMATOID FACTOR <10 Normal <[address] [facility] Comment on above: Performed By: #### C GARRY, 52158-5, 50167-4, CMP, 3084-1, HA1C, 43086-7, 22679-2, 5130-0, 17943-7, 84232-0, 14512-5 #### [facility] ([id number]) [address] [place] [address], [address] [place] [address] Ribonucleoprotein extractabl e nuclear IgG Qn (S)on 12-30-2023 SHIP ENGINES OPERATING ENGINEER ANTIBODY IGG 1.8 AI High <1.0 [facility] Comment on above: Performed By: #### C GARRY, 99071-2, 02968-1, CMP, 3084-1, HA1C, 46837-5, 49805-7, 5130-0, 18958-1, 33377-6, 74087-4 #### [facility] ([id number]) [address] [place] [address], [address] [place] [address] Nunez extractable nuclear Ab +Ribonucleoprotein extractable nuclear IgG Qn (S)on 12-30-2023 NUNEZ/SHIP ENGINES OPERATING ENGINEER AB IGG <0.2 Normal <1.0 [facility] Comment on above: Performed By: #### C GARRY, 30596-3, 33239-0, CMP, 3084-1, HA1C, 27711-6, 59192-6, 5130-0, 52359-9, 37957-6, 28747-7 #### [facility] ([id number]) [address], [address] [place] [address] Nunez extractable nuclear Ig G Qn (S)on 12-30-2023 ANTI-NUNEZ AB IGG <0.2 Normal <1.[address] [facility] Comment on above: Performed By: #### C BCA, 04028-8, 37232-3, CMP, 3084-1, HA1C, 99632-2, 52772-2, 5130-0, 86154-5, 67268-5, 88433-1 #### [facility] ([id number]) [address], [address] [place] [address] URIC ACIDon 12-30-2023 Urate [Mass/Vol] 6.8 mg/dL Normal 2.6-7.2 [facility] Comment on above: Performed By: #### C BCA, 04456-0, 94634-5, CMP, 3084-1, HA1C, 45491-3, 43220-6, 5130-0, 05868-5, 65617-4, 48296-1 #### [facility] ([id number]) [address], [address] [place] [address] Uric acidon 12-30-2023 Urate [Mass/Vol] 6.8 mg/dL 2.6 - 7.2 mg/dL [facility] Vital Signs Date Time Vital Sign Value Performing Clinician Alejo forde 11-16-2024 11:02040 Body height 182.9 cm Angela WINTER Work Phone: [facility] 11-16-2024 11:02-040 Body mass index (BMI) [Ratio] 48.01 kg/m2 Angela WINTER Work Phone: [facility] 11-16-2024 11:02-0400 Body weight 160.57 kg Angela Estevez PA Work Phone: [facility] 11-16-2024 11:02-0400 Diastolic blood pressure 82 mm[Hg] Angela Estevez PA Work Phone: [facility] 11-16-2024 11:02-0400 Heart rate 78 /min Angela Estevez PA Work Phone: [facility] 11-16-2024 11:02-0400 Respiratory rate 16 /min Angela Estevez PA Work Phone: [facility] 11-16-2024 11:02-0400 SaO2% (BldA) [Mass fraction] 96 % Angela Estevez PA Work Phone: [facility] 11-16-2024 11:02-0400 Systolic blood pressure 130 mm[Hg] Angela Estevez PA Work Phone: [facility] 10-19-2024 10:53-0400 Body height 182.9 cm Rosa Isela Haskins WALL TAPER HELPER-STORAGE BATTERY INSPECTOR AND TESTER Work Phone: [facility] [employer] [facility] 10-19-2024 10:53-0400 Body mass index (BMI) [Ratio] 47.14 kg/m2 Rosa Isela Haskins WALL TAPER HELPER-STORAGE BATTERY INSPECTOR AND TESTER Work Phone: [facility] [employer] [facility] 10-19-2024 10:53-0400 Body temperature 98.49 [degF] Rosa Isela Haskins WALL TAPER HELPER-STORAGE BATTERY INSPECTOR AND TESTER Work Phone: [facility] 10-19-2024 10:53-0400 Body weight 157.67 kg Rosa Isela Haskins WALL TAPER HELPER-STORAGE BATTERY INSPECTOR AND TESTER Work Phone: [facility] [employer] [facility] 10-19-2024 10:53-0400 Diastolic blood pressure 70 mm[Hg] Rosa Isela Haskins WALL TAPER HELPER-STORAGE BATTERY INSPECTOR AND TESTER Work Phone: [facility] 10-19-2024 10:53-0400 Heart rate 77 /min Rosa Isela Haskins WALL TAPER HELPER-STORAGE BATTERY INSPECTOR AND TESTER Work Phone: [facility] 10-19-2024 10:53-0400 Respiratory rate 18 /min Rosa Isela Haskins APRN-STORAGE BATTERY INSPECTOR AND TESTER Work Phone: [facility] 10-19-2024 10:53-0400 SaO2% (BldA) [Mass fraction] 98 % Rosa Isela Haskins APRN-STORAGE BATTERY INSPECTOR AND TESTER Work Phone: [facility] 10-19-2024 10:53-0400 Systolic blood pressure 100 mm[Hg] Rosa Isela Haskins APRN-STORAGE BATTERY INSPECTOR AND TESTER Work Phone: [facility] 07-20-2024 11:34-0500 Body height 182.9 cm Pa WINTER Work Phone: [facility] 07-20-2024 11:34-0500 Body mass index (BMI) [Ratio] 44.08 kg/m2 Pa WINTER Work Phone: [facility] 07-20-2024 11:34-0500 Body weight 147.42 kg Pa Mathews PA Work Phone: [facility] 07-06-2024 08:38-0500 Body mass index (BMI) [Ratio] 47.33 kg/m2 Lisbeth Middleton WASHERETTE MACHINE OPERATOR Work Phone: [facility] 07-06-2024 08:38-0500 Body weight 158.31 kg Lisbeth Middleton WASHERETTE MACHINE OPERATOR Work Phone: [facility] 07-06-2024 08:38-0500 Diastolic blood pressure 88 mm[Hg] Lisbeth Middleton WASHERETTE MACHINE OPERATOR Work Phone: [facility] 07-06-2024 08:38-0500 Heart rate 88 /min Lisbeth Middleton WASHERETTE MACHINE OPERATOR Work Phone: [facility] 07-06-2024 08:38-0500 SaO2% (BldA) [Mass fraction] 94 % Lisbeth Middleton WASHERETTE MACHINE OPERATOR Work Phone: [facility] 07-06-2024 08:38-0500 Systolic blood pressure 142 mm[Hg] Lisbeth Middleton WASHERETTE MACHINE OPERATOR Work Phone: [facility] 06-09-2024 10:50-0500 Body height 182.9 cm Mauriceer Hermelindo DO Work Phone: [facility] 06-09-2024 10:50-0500 Body mass index (BMI) [Ratio] 46.52 kg/m2 Christopher Hermelindo DO Work Phone: [facility] 06-09-2024 10:50-0500 Body weight 155.58 kg Christopher Hermelindo DO Work Phone: [facility] 06-09-2024 10:50-0500 Diastolic blood pressure 83 mm[Hg] Gauravopher Hermelindo DO Work Phone: [facility] 06-09-2024 10:50-0500 Heart rate 73 /min Christopher Hermelindo DO Work Phone: [facility] 06-09-2024 10:50-0500 SaO2% (BldA) [Mass fraction] 94 % [facility] Work Phone: [facility] 06-09-2024 10:50-0500 Systolic blood pressure 131 mm[Hg] Mauriceer Hermelindo DO Work Phone: [facility] 05-10-2024 12:53-0400 Body height 182.9 cm Rosa Isela Haskins APRN-STORAGE BATTERY INSPECTOR AND TESTER Work Phone: [facility] 05-10-2024 12:53-0400 Body mass index (BMI) [Ratio] 45.79 kg/m2 Rosa Isela Haskins WALL TAPER HELPER-STORAGE BATTERY INSPECTOR AND TESTER Work Phone: [facility] 05-10-2024 12:53-0400 Body temperature 98.71 [degF] Rosa Isela Haskins WALL TAPER HELPER-STORAGE BATTERY INSPECTOR AND TESTER Work Phone: [facility] 05-10-2024 12:53-0400 Body weight 153.13 kg Rosa Isela Haskins WALL TAPER HELPER-STORAGE BATTERY INSPECTOR AND TESTER Work Phone: [facility] 05-10-2024 12:53-0400 Diastolic blood pressure 60 mm[Hg] Rosa Isela Haskins WALL TAPER HELPER-STORAGE BATTERY INSPECTOR AND TESTER Work Phone: [facility] 05-10-2024 12:53-0400 Heart rate 74 /min Rosa Isela Haskins WALL TAPER HELPER-STORAGE BATTERY INSPECTOR AND TESTER Work Phone: [facility] 05-10-2024 12:53-0400 Respiratory rate 18 /min Rosa Isela Haskins WALL TAPER HELPER-STORAGE BATTERY INSPECTOR AND TESTER Work Phone: [facility] 05-10-2024 12:53-0400 SaO2% (BldA) [Mass fraction] 96 % Rosa Isela Haskins WALL TAPER HELPER-STORAGE BATTERY INSPECTOR AND TESTER Work Phone: [facility] 05-10-2024 12:53-0400 Systolic blood pressure 124 mm[Hg] Rosa Isela Haskins WALL TAPER HELPER-STORAGE BATTERY INSPECTOR AND TESTER Work Phone: [facility] 02-01-2024 16:06-0400 Body height 182.9 cm Rosa Isela Haskins WALL TAPER HELPER-STORAGE BATTERY INSPECTOR AND TESTER Work Phone: [facility] 02-01-2024 16:06-0400 Body mass index (BMI) [Ratio] 45.87 kg/m2 Rosa Isela Haskins WALL TAPER HELPER-STORAGE BATTERY INSPECTOR AND TESTER Work Phone: [facility] 02-01-2024 16:06-0400 Body temperature 98.2 [degF] Rosa Isela Haskins WALL TAPER HELPER-STORAGE BATTERY INSPECTOR AND TESTER Work Phone: [facility] 02-01-2024 16:06-0400 Body weight 153.41 kg Rosa Isela Haskins WALL TAPER HELPER-STORAGE BATTERY INSPECTOR AND TESTER Work Phone: [facility] 02-01-2024 16:06-0400 Diastolic blood pressure 70 mm[Hg] Rosa Isela Loyaillo WALL TAPER HELPER-STORAGE BATTERY INSPECTOR AND TESTER Work Phone: [facility] 02-01-2024 16:06-0400 Heart rate 72 /min Rosa Iselarylie Haskins WALL TAPER HELPER-STORAGE BATTERY INSPECTOR AND TESTER Work Phone: [facility] 02-01-2024 16:06-0400 Respiratory rate 18 /min Rosa Isela Loyaillo WALL TAPER HELPER-STORAGE BATTERY INSPECTOR AND TESTER Work Phone: [facility] [employer] [facility] 02-01-2024 16:06-0400 SaO2% (BldA) [Mass fraction] 98 % Rosa Isela Haskins APRN-STORAGE BATTERY INSPECTOR AND TESTER Work Phone: [facility] [employer] [facility] 02-01-2024 16:06-0400 Systolic blood pressure 120 mm[Hg] Rosa Isela Haskins APRN-STORAGE BATTERY INSPECTOR AND TESTER Work Phone: [facility] 12-30-2023 13:57-0400 Body height 177.8 cm Rosa Isela Haskins APRN-STORAGE BATTERY INSPECTOR AND TESTER Work Phone: [facility] 12-30-2023 13:57-0400 Body mass index (BMI) [Ratio] 48.24 kg/m2 Rosa Isela Haskins APRN-STORAGE BATTERY INSPECTOR AND TESTER Work Phone: [facility] 12-30-2023 13:57-0400 Body weight 152.5 kg Rosa Isela Haskins APRN-STORAGE BATTERY INSPECTOR AND TESTER Work Phone: [facility] 12-30-2023 13:57-0400 Diastolic blood pressure 72 mm[Hg] Rosa Isela Haskins WALL TAPER HELPER-STORAGE BATTERY INSPECTOR AND TESTER Work Phone: [facility] 12-30-2023 13:57-0400 Heart rate 83 /min Rosa Isela Haskins APRN-STORAGE BATTERY INSPECTOR AND TESTER Work Phone: [facility] 12-30-2023 13:57-0400 Respiratory rate 20 /min Rosa Isela Haskins APRN-STORAGE BATTERY INSPECTOR AND TESTER Work Phone: [facility] 12-30-2023 13:57-0400 SaO2% (BldA) [Mass fraction] 95 % Rosa Isela Haskins APRN-STORAGE BATTERY INSPECTOR AND TESTER Work Phone: [facility] 12-30-2023 13:57-0400 Systolic blood pressure 136 mm[Hg] Rosa Isela Haskins WALL TAPER HELPER-STORAGE BATTERY INSPECTOR AND TESTER Work Phone: [facility] Encounters Encounter Date Encounter Type Care Provider Facility Start: 12-12-2024 End: 12-12-2024 ambulatory Frank Bah MD Facility: [facility] Start: 11-16-2024 End: 11-16-2024 Bamboo flowsheet Angela WINTER Work Phone: [facility] [place] Start: 11-16-2024 End: 11-16-2024 Bamboo flowsheet Angela WINTER Work Phone: [facility] [place] Start: 11-16-2024 End: 11-16-2024 Office outpatient visit 25 minutes Angela WINTER Work Phone: [facility] [place] Comment on above: Neck pain (Primary D x); DDD (degenerative disc disease), cervical; Lumbosacral radiculopathy; Low back pain at multiple sites Start: 11-16-2024 End: 11-16-2024 ambulatory ANGELA ESTEVEZ Not Available Start: 11-14-2024 End: 11-14-2024 ambulatory Frank Bah MD Facility: [facility] Start: 11-03-2024 End: 11-03-2024 ambulatory [facility] Start: 10-19-2024 End: 10-19-2024 [facility]ADIRA-STORAGE BATTERY INSPECTOR AND TESTER Work Phone: [facility] Comment on above: Enlarged lymph node in neck (Primary Dx); Ganglion cyst of tendon sheath of left hand Start: 10-19-2024 End: 10-19-2024 ambulatory [facility] Start: 10-04-2024 End: 10-04-2024 Bamboo flowsheet Lisbeth Middleton WASHERETTE MACHINE OPERATOR Work Phone: [facility] [place] Start: 10-04-2024 End: 10-04-2024 Bamboo flowsheet Lisbeth Middleton WASHERETTE MACHINE OPERATOR Work Phone: [facility] [place] Start: 10-04-2024 End: 10-04-2024 ambulatory LISBETH MIDDLETON Not Available Start: 09-23-2024 End: 09-23-2024 ambulatory [facility] Start: 08-18-2024 End: 08-18-2024 Bamboo flowsheet Ludy J Carline PT Work Phone: [facility] Start: 08-18-2024 End: 08-18-2024 Bamboo flowsheet Ludy J Carline PT Work Phone: [facility] Start: 08-18-2024 End: 08-18-2024 ambulatory Ludy J Carline PT Work Phone: [facility] Comment on above: Neck pain (Primary D x); Chronic midline low back pain without sciatica; Multiple joint pain; Paresthesia Start: 08-16-2024 End: 08-16-2024 Bamboo flowsheet Nandini Cox SALES ACCOUNT EXECUTIVE [facility] Start: 08-16-2024 End: 08-16-2024 Bamboo flowsheet Nandini Cox SALES ACCOUNT EXECUTIVE [facility] Start: 08-16-2024 End: 08-16-2024 ambulatory Nandini Cox SALES ACCOUNT EXECUTIVE [facility] Comment on above: Neck pain (Primary D x); Chronic midline low back pain without sciatica; Multiple joint pain; Paresthesia Start: 08-11-2024 End: 08-11-2024 ambulatory Danni Luna SALES ACCOUNT EXECUTIVE Work Phone: [facility] Comment on above: Neck pain (Primary D x); Chronic midline low back pain without sciatica; Multiple joint pain; Paresthesia Start: 08-08-2024 End: 08-18-2024 Telephone encounter Lisbeth Middleton WASHERETTE MACHINE OPERATOR Work Phone: [facility] [place] Start: 08-02-2024 End: 08-02-2024 Bamboo flowsheet Ludy [...] Start: 07-25-2024 End: 07-25-2024 Bamboo flowsheet Ludy Crowley PT Work Phone: [facility] Start: 07-25-2024 End: 07-25-2024 Bamboo flowsheet Ludy Crowley PT Work Phone: [facility] Start: 07-25-2024 End: 07-25-2024 ambulatory Ludy Crowley PT Work Phone: [facility] Comment on above: Neck pain (Primary D x); Chronic midline low back pain without sciatica Start: 07-21-2024 End: 07-21-2024 External Result Encounter Pa WINTER Work Phone: [facility] Unsolicited Start: 07-21-2024 End: 07-21-2024 External Result Encounter Pa WINTER Work Phone: [facility] Unsolicited Start: 07-21-2024 End: 07-21-2024 ambulatory Nandini Cox SALES ACCOUNT EXECUTIVE [facility] Comment on above: Neck pain (Primary D x); Chronic midline low back pain without sciatica; Multiple joint pain; Paresthesia Start: 07-20-2024 End: 07-20-2024 Bamboo flowsheet Pa WINTER Work Phone: [facility] Start: 07-20-2024 End: 07-20-2024 Bamboo flowsheet Pa Mathews PA Work Phone: [facility] Start: 07-20-2024 End: 07-20-2024 Office outpatient new 45 minutes Pa Mathews PA Work Phone: [facility] Comment on above: Paresthesia of hand, bilateral (Primary Dx); Polyarthralgia; Neck pain Start: 07-20-2024 End: 07-20-2024 ambulatory AP MATHEWS Not Available Start: 07-14-2024 End: 07-14-2024 Telephone encounter Ludy Crowley PT Work Phone: [facility] Start: 07-12-2024 End: 07-12-2024 Bamboo flowsheet Nandini Tattersall SALES ACCOUNT EXECUTIVE [facility] Start: 07-12-2024 End: 07-12-2024 Bamboo flowsheet Nandini Tattersall SALES ACCOUNT EXECUTIVE [facility] Start: 07-12-2024 End: 07-12-2024 ambulatory Nandini Tattersall SALES ACCOUNT EXECUTIVE [facility] Comment on above: Neck pain (Primary D x); Chronic midline low back pain without sciatica; Multiple joint pain; Paresthesia Start: 07-07-2024 End: 07-07-2024 Bamboo flowsheet Nandini Tattersall SALES ACCOUNT EXECUTIVE [facility] Start: 07-07-2024 End: 07-07-2024 Bamboo flowsheet Nandini Tattersall SALES ACCOUNT EXECUTIVE [facility] Start: 07-07-2024 End: 07-07-2024 ambulatory Nandini Montaneztersall SALES ACCOUNT EXECUTIVE [facility] Comment on above: Neck pain (Primary D x); Chronic midline low back pain without sciatica; Multiple joint pain; Paresthesia Start: 07-06-2024 End: 07-06-2024 Office outpatient visit 25 minutes Lisbeth Middleton WASHERETTE MACHINE OPERATOR Work Phone: [facility] Comment on above: Neck pain (Primary D x); Paresthesias; Bilateral carpal tunnel syndrome; Ulnar neuropathy of both upper extremities Start: 07-06-2024 End: 07-06-2024 ambulatory LISBETH MIDDLETON Not Available Start: 07-05-2024 End: 07-05-2024 Bamboo flowsheet Aniceto Casarez DO Work Phone: [facility] [employer] [address] Start: 07-05-2024 End: 07-05-2024 Bamboo flowsheet Aniceto Casarez DO Work Phone: [facility] [place] [facility] Start: 07-05-2024 End: 07-05-2024 Patient encounter procedure Aniceto Casarez DO Work Phone: [facility] [place] [facility] Comment on above: Ulnar neuropathy of both upper extremities (Primary Dx) Start: 07-05-2024 End: 07-05-2024 ambulatory ANICETO CASAREZ Not Available Start: 06-23-2024 End: 06-23-2024 Bamboo flowsheet Nandini Cox SALES ACCOUNT EXECUTIVE [facility] Start: 06-23-2024 End: 06-23-2024 Bamboo flowsheet Nandini Cox SALES ACCOUNT EXECUTIVE [facility] Start: 06-23-2024 End: 06-23-2024 ambulatory Nandini oCx SALES ACCOUNT EXECUTIVE [facility] Comment on above: Neck pain (Primary D x); Chronic midline low back pain without sciatica; Multiple joint pain; Paresthesia Start: 06-20-2024 End: 06-20-2024 Bamboo flowsheet Ludy Woodsgs PT Work Phone: [facility] Start: 06-20-2024 End: 06-20-2024 Bamboo flowsheet Ludy Alvares Carline PT Work Phone: [facility] Start: 06-20-2024 End: 06-20-2024 ambulatory Ludy Crowley PT Work Phone: [facility] Comment on above: Neck pain (Primary D x); Chronic midline low back pain without sciatica; Multiple joint pain; Paresthesia Start: 06-09-2024 End: 06-09-2024 Bamboo flowsheet Christopher Hermelindo DO Work Phone: [facility] [place] [address] Start: 06-09-2024 End: 06-09-2024 Bamboo flowsheet Christopher Hermelindo DO Work Phone: [facility] [place] [facility] Start: 06-09-2024 End: 06-09-2024 Office outpatient new 45 minutes Aniceto Glezett DO Work Phone: [facility] [place] [address] Comment on above: Paresthesia (Primary Dx) Start: 06-09-2024 End: 06-09-2024 ambulatory ANICETO CASAREZ Not Available Start: 05-10-2024 End: 05-10-2024 Office outpatient visit 15 minutes Rosa Isela Haskins APRN-STORAGE BATTERY INSPECTOR AND TESTER Work Phone: [facility] Comment on above: Chronic pain syndrom e (Primary Dx); Pain in joints Start: 05-10-2024 End: 05-10-2024 ambulatory [facility] Start: 03-17-2024 End: 03-17-2024 Patient encounter procedure MD Pa San Work Phone: [facility] [address] Work Phone: Start: 03-17-2024 End: 03-17-2024 ambulatory Pa San [facility] Work Phone: Start: 02-01-2024 End: 02-01-2024 ambulatory [facility] Start: 02-01-2024 Encounter for genera l adult medical examination without abnormal findings [facility] Start: 02-01-2024 End: 02-01-2024 Patient encounter procedure Rosa Iselarylie Haskins WALL TAPER HELPER-STORAGE BATTERY INSPECTOR AND TESTER Work Phone: [facility] Work Phone: Start: 02-01-2024 End: 02-01-2024 Periodic preventive med est patient 40-64yrs Rosa Isela Haskins WALL TAPER HELPER-STORAGE BATTERY INSPECTOR AND TESTER [facility] Phone: [facility] Comment on above: Annual physical exam (Primary Dx); Blood tests for routine general physical examination; Encounter for screening for malignant neoplasm of prostate; Special screening for malignant neoplasm of colon Start: 02-01-2024 End: 02-01-2024 Physical examination Rosa Isela Haskins WALL TAPER HELPER-STORAGE BATTERY INSPECTOR AND TESTER Work Phone: [facility] Start: 02-01-2024 End: 02-01-2024 ambulatory [facility] Start: 02-01-2024 Encounter for genera l adult medical examination without abnormal findings [facility] Start: 12-30-2023 End: 12-30-2023 ambulatory [facility] Start: 12-30-2023 End: 12-30-2023 Office outpatient new 45 minutes Rosa Isela Haskins APRNSTORAGE BATTERY INSPECTOR AND TESTER Work Phone: [facility] Comment on above: Positive CATHY (antinu clear antibody) (Primary Dx); Pain in other joint; Joint swelling; Screening for diabetes mellitus (DM) Start: 12-30-2023 End: 12-30-2023 ambulatory [facility] Procedures Date Procedure Procedure Detail Performing Clinician Start: 10-19-2024 Adult depression scr eening assessment Rosa Isela Haskins APRN-[facility] Work Phone: Start: 07-21-2024 Sedimentation rate r bc automated Pa WINTER Work Phone: Start: 07-05-2024 End: 07-05-2024 Needle emg ea extremty w/paraspinl area complete Aniceto Casarez DO Work Phone: Start: 05-10-2024 Adult depression scr eening assessment Rosa Isela Haskins APRN-[facility] Work Phone: Start: 02-01-2024 Adult depression scr eening assessment Rosa Isela Haskins APRN-[facility] Work Phone: Start: 12-30-2023 Adult depression scr eening assessment Rosa Iselarylie Haskins APRN-[facility] Work Phone: Plan of Treatment Date Care Activity Detail Author Start: 05-03-2027 Screening for malign ant neoplasm of colon [facility] Start: 10-19-2025 Adult BMI Screening Adult BMI Screen ing [facility] Start: 10-19-2025 Depression Screening Depression Scre [facility] Start: 10-19-2025 Tobacco Screening Tobacco Screening [facility] Start: 05-10-2025 Adult BMI Follow Up Plan Adult BMI Follow Up Plan [facility] Start: 05-10-2025 Adult BMI Screening Adult BMI Screen ing [facility] Start: 05-10-2025 Depression Screening Depression Scre ening [facility] Start: 05-10-2025 Tobacco Screening Tobacco Screening [facility] Start: 04-03-2025 Influenza vaccination Influenz a Vaccine (Season Ended) [facility] Start: 01-31-2025 Adult BMI Follow Up Plan Adult BMI Follow Up Plan [facility] Start: 01-31-2025 Adult BMI Screening Adult BMI Screen ing [facility] Start: 01-31-2025 Depression Screening Depression Scre ening [facility] Start: 01-31-2025 Tobacco Screening Tobacco Screening [facility] Start: 01-11-2025 End: 01-11-2025 Patient encounter procedure 01/11/2025 11:00 AM EDT Office Visit [facility] [place] [address] [place] [phone] Angela Estevez PA [address] [place] [address] [facility] [place] Start: 12-29-2024 Adult BMI Follow Up Plan Adult BMI Follow Up Plan [facility] Start: 12-29-2024 Adult BMI Screening Adult BMI Screen ing [facility] Start: 12-29-2024 Depression Screening Depression Scre ening [facility] Start: 12-29-2024 Tobacco Screening Tobacco Screening [facility] Start: 11-16-2024 End: 11-16-2024 Patient encounter procedure 11/16/2024 11:00 AM EDT Office Visit [facility] [place] [address] [place] [address] Angela Estevez PA [address] [place] [address] Arrived [facility] Comment on above: Arrived Start: 11-03-2024 End: 11-03-2024 Patient encounter procedure 11/03/2024 9:45 AM EDT Appointment [facility] [address] [place] [phone] [facility] Start: 10-19-2024 End: 10-19-2025 CT Neck WO contrast CT neck soft tissue without contrast Imaging Routine Enlarged lymph node in neck Expected: 10/19/2024, Expires: 10/19/2025 [facility] Work Phone: Comment on above: Expected: 10/19/2024 , Expires: 10/19/2025 Start: 10-04-2024 End: 10-04-2024 Patient encounter procedure 10/04/2024 1:40 PM EST Office Visit [facility] [place] [address] [place] [phone] Lisbeth Middleton NP [address] [facility] [phone] Arrived [facility] [place] Comment on above: Arrived Start: 09-13-2024 End: 09-13-2024 Patient encounter procedure 09/13/2024 11:20 AM EST Office Visit [facility] [address] [place] [phone] Rosa Isela Haskins, WALL TAPER HELPER-STORAGE BATTERY INSPECTOR AND TESTER [address] [place] [address] [facility] Start: 09-06-2024 End: 09-06-2024 Patient encounter procedure 09/06/2024 8:20 AM EST Office Visit [facility] [place] [address] [place] [address] Lisbeth Middleton NP [address] [place] [phone] [facility] Start: 08-18-2024 End: 08-18-2024 ambulatory 08/18/2024 10:00 AM EST Treatment [facility] [address] [place] [phone] Ludy Crowley, PT [address] [place], [place] [phone] [facility] Start: 08-16-2024 End: 08-16-2024 ambulatory [facility] Comment on above: Arrived Start: 08-11-2024 End: 08-11-2024 ambulatory 08/11/2024 10:00 AM EST Treatment [facility] [address] [place] [phone] Danni Luna, SALES ACCOUNT EXECUTIVE [address] [place] [address] [facility] Start: 08-10-2024 End: 08-10-2024 Patient encounter procedure 08/10/2024 11:00 AM EST Office Visit [facility] [address] [place] [phone] Pa Mathews, PA [address] [address] [place] [address] [facility] Start: 08-09-2024 End: 08-09-2024 Patient encounter procedure 08/09/2024 9:40 AM EST Office Visit [facility] [place] [address] [facility] [place] [address] MiddletonLisbeth merchant, WASHERETTE MACHINE OPERATOR [address] [place] [address] [facility] [place] [facility] Start: 08-08-2024 End: 08-08-2024 ambulatory 08/08/2024 9:00 AM EST Treatment [facility] [address] [place] [phone] Danni Luna, SALES ACCOUNT EXECUTIVE [address] [place] [address] [facility] Start: 08-05-2024 End: 08-05-2024 ambulatory 08/05/2024 8:30 AM EST Treatment [facility] [address] [place] [phone] Ludy Crowley, PT [address] [place] [address] [facility] Start: 08-02-2024 End: 08-02-2024 ambulatory 08/02/2024 8:30 AM EST Treatment [facility] [address] [place] [address] Ludy Crowley, PT [address] [place] [address] Arrived [facility] Comment on above: Arrived Start: 07-28-2024 End: 07-28-2024 ambulatory [facility] Start: 07-25-2024 End: 07-25-2024 ambulatory [facility] Comment on above: Arrived Start: 07-21-2024 End: 07-21-2024 ambulatory 07/21/2024 9:30 AM EST Treatment [facility] [address] [place] [phone] Nandini Cox PTA [facility] Start: 07-20-2024 End: 07-20-2025 C reactive protein [Mass/volume] in Serum or Plasma C-reactive protein Lab Routine Polyarthralgia Expected: 07/20/2024 (Approximate), Expires: 07/20/2025 [facility] Comment on above: Expected: 07/20/2024 (Approximate), Expires: 07/20/2025 Start: 07-20-2024 End: 07-20-2025 Erythrocyte sedimentation rate Sedimentation rate, automated Lab Routine Polyarthralgia Expected: 07/20/2024 (Approximate), Expires: 07/20/2025 [facility] Comment on above: Expected: 07/20/2024 (Approximate), Expires: 07/20/2025 Start: 07-20-2024 End: 07-20-2025 LYME DISEASE ANTIBODY (IGG), IMMUNOBLOT LYME DISEASE ANTIBODY (IGG), IMMUNOBLOT Lab Routine Polyarthralgia Expected: 07/20/2024 (Approximate), Expires: 07/20/2025 [facility] Comment on above: Expected: 07/20/2024 (Approximate), [...] EST Treatment [facility] [address] [place] [facility] [place] [address] Ludy Crowley, PT [address] [place] [address] [facility] Start: 07-14-2024 End: 07-14-2024 ambulatory 07/14/2024 9:30 AM EST Treatment [facility] [address] [place] [address] Nandini Cox, GILBERTO [facility] [...] [facility] [place] [address] [place] [phone] Lisbeth Middleton, WASHERETTE MACHINE OPERATOR [address] [place] [phone] [facility] [place] [facility] Start: 07-05-2024 End: 07-05-2024 Patient encounter procedure [facility] Comment on above: Arrived Start: 07-04-2024 End: 07-04-2024 ambulatory 07/04/2024 9:00 AM EST Treatment [facility] [address] [place] [address] Danni Luna, SALES ACCOUNT EXECUTIVE [address] [place] [address] [facility] Start: 06-28-2024 End: 06-28-2024 ambulatory 06/28/2024 10:30 AM EST Treatment [facility] [address] [place] [phone] Danni Luna, SALES ACCOUNT EXECUTIVE [address] [place] [address] [facility] Start: 06-23-2024 End: 06-23-2024 ambulatory 06/23/2024 8:30 AM EST Treatment [facility] [address] [place] [phone] Nandini Cox, SALES ACCOUNT EXECUTIVE Neck pain (Primary Dx); Chronic midline low back pain without sciatica; Multiple joint pain; Paresthesia [facility] Comment on above: Neck pain (Primary D x); Chronic midline low back pain without sciatica; Multiple joint pain; Paresthesia Start: 06-16-2024 End: 06-16-2024 Patient encounter procedure 06/16/2024 11:00 AM EST Procedure Visit [facility] [place] [facility] [address] [place] [phone] Aniceto Casarez DO [address] [place] [address] [facility] [place] [facility] Start: 06-09-2024 End: 06-09-2025 EMG 2 Extremities EMG 2 Extremities Neurology Routine Paresthesia Expected: 06/09/2024, Expires: 06/09/2025 [facility] Work Phone: Comment on above: Expected: 06/09/2024 , Expires: 06/09/2025 Start: 06-09-2024 End: 06-09-2024 Patient encounter procedure 06/09/2024 11:00 AM EST [facility] [place] [facility] [address] [place] [address] Aniceto Casarez, [address] [place] [address] Arrived [facility] Comment on above: Arrived Start: 04-03-2024 Influenza vaccination Influenza Vacc ine [facility] Start: 03-17-2024 Hemolytic complement CH50 level [facility] Start: 03-17-2024 Hepatitis B core antibody measurement [facility] Start: 03-17-2024 [facility] Start: 02-01-2024 End: 02-01-2024 Patient encounter procedure 02/01/2024 4:00 PM EDT [facility] [address] [place] [phone] Rosa Isela Haskins, WALL TAPER HELPER-STORAGE BATTERY INSPECTOR AND TESTER [address] [place] [address] [facility] Start: 2016 Administration of varicella zoster vaccine Zoster (Shingles) Vaccine (1 of 2) [facility] Start: 2011 Screening for malign ant neoplasm of colon Colonoscopy [facility] Start: 1985 DTaP,Tdap and Td Vaccines (1 - Tdap) DTaP,Tdap and Td Vaccines (1 - Tdap) [facility] Start: 1966 Screening for malign ant neoplasm of colon [facility] Start: 1966 Tobacco Counseling Tobacco Counselin g [facility] Aldolase measurement [facility] End: 12-29-2024 CATHY Screen w/ Reflex CATHY Screen w/ Reflex Lab Routine Positive CATHY (antinuclear antibody) Pain in other joint 1 Occurrences starting 12/30/2023 until 12/29/2024 [employer] Work Phone: Comment on above: 1 Occurrences starti ng 12/30/2023 until 12/29/2024 Chromatin Ab [Units/volume] in Serum or Plasma [facility] Cologuard [facility] Cologuar d [facility] Lab Routine Special screening for malignant neoplasm of colon [facility]: [facility]20[facility] Comment on above: Ordered: 02/01/2024 Complement C3 [Mass/volume] in Serum or Plasma [facility] Complement C4 [Mass/volume] in Serum or Plasma [facility] End: 12-30-2024 Hemoglobin A1c/Hemoglobin.total in Blood Hemoglobin A1c Lab Routine Screening for diabetes mellitus (DM) 1 Occurrences starting 12/30/2023 until 12/30/2024 [facility] [employer] [facility] Comment on above: 1 Occurrences starti ng 12/30/2023 until 12/30/2024 Hemoglobin A1c/Hemoglobin.total in Blood Hemoglobin A1c Lab Routine Screening for diabetes mellitus (DM) 12/30/2023 10:10 PM EDT [facility] Hepatitis B virus surface Ab [Presence] in Serum [facility] Hepatitis B virus surface Ag [Presence] in Serum or Plasma by Immunoassay [facility] Hepatitis C virus Ig G Ab [Presence] in Serum or Plasma by Immunoassay [facility] Homogenous nuclear A b pattern [Titer] in Serum [facility] End: 01-31-2025 Lipid panel Lipid panel Lab Routine Blood tests for routine general physical examination 1 Occurrences starting 02/01/2024 until 01/31/2025 [employer] Work Phone: Comment on above: 1 Occurrences starti ng 02/01/2024 until 01/31/2025 Lupus anticoagulant [Interpretation] in Platelet poor plasma [facility] Nuclear Ab [Presence ] in Serum by Immunoassay CATHY Screen w/ Reflex Lab Routine Positive CATHY (antinuclear antibody) Pain in other joint 12/30/2023 10:10 PM EDT [facility] Nuclear Ab [Titer] i n Serum [facility] End: 01-31-2025 Prostatic specific antigen screen Prostatic specific antigen screen Lab Routine Encounter for screening for malignant neoplasm of prostate 1 Occurrences starting 02/01/2024 until 01/31/2025 [employer] Comment on above: 1 Occurrences starti ng 02/01/2024 until 01/31/2025 Reagin Ab [Presence] in Serum by RPR [facility] Thrombin time [facility] Thyroglobulin Ab [Units/volume] in Serum or Plasma [facility] Thyroperoxidase Ab [Units/volume] in Serum or Plasma [facility] Payers Date Payer Category Payer Unknown 2024 Self-pay 2024 Unknown [id number] 2023 Medicaid HMO [employer] [id number] 2023 Medicaid [id number] 2023 Private Health Insurance [facility] MEDICAID [id number] 2023 Medicaid [id number] 1965 Unknown [id number] 2.16.840.1.560912.3.579.2. 1285 1966 Unknown [id number] 2.16.840.1.600327.3.579.2. 1285 1966 Unknown [id number] 2.16.840.1.894417.3.579.2. 1285 1966 Unknown [id number] 2.16.840.1.921369.3.579.2. 1285 1966 Unknown [id number] 2.16.840.1.640036.3.579.2. 1285 1966 Unknown [id number] 2.16.840.1.452733.3.579.2. 1285 1966 Unknown [id number] 2.16.840.1.882264.3.579.2. 1285 1966 Unknown [id number] 2.16.840.1.924947.3.579.2. 1285 1966 Unknown [id number] 2.16.840.1.866133.3.579.2. 1285 1966 Unknown [id number] 2.16.840.1.760204.3.579.2. 1285 1966 Unknown [id number] 2.16.840.1.323789.3.579.2. 1258 1966 Unknown [id number] 2.16.840.1.857179.3.579.2. 1258 1966 Unknown [id number] 2.16.840.1.953685.3.579.2. 1258 1966 Unknown [id number] 2.16.840.1.361773.3.579.2. 1258 1966 Unknown [id number] 2.16.840.1.593165.3.579.2. 1259 1966 Unknown [id number] 2.16.840.1.195606.3.579.2. 1258 1966 Unknown [id number] 2.16.840.1.330957.3.579.2. 1258 1966 Unknown [id number] 2.16.840.1.974051.3.579.2. 1258 1966 Unknown [id number] 2.16.840.1.823197.3.579.2. 1258 1966 Unknown [id number] 2.16.840.1.993257.3.579.2. 1258 1966 Unknown [id number] 2.16.840.1.491288.3.579.2. 1258 1966 Unknown [id number] 2.16.840.1.264014.3.579.2. 1258 1966 Unknown [id number] 2.16840.1.993844.3.579.2. 1258 1966 Unknown [id number] 2.16.840.1.797182.3.579.2. 1258 1966 Unknown [id number] 2.16.840.1.259185.3.579.2. 1258 1966 Unknown [id number] 2.16.840.1.171940.3.579.2. 1258 1966 Unknown [id number] 2.16840.1.243775.3.579.2. 196 1966 Unknown [id number] 2.16840.1.271364.3.579.2. 196 Unknown [id number] 2.16840.1.843848.3.579.2. 531 Social History Date Type Detail Facility Tobacco smoking stat [facility] Unknown if ever smoked [facility] Work Phone: Start: 1965 Sex Assigned At Male F [facility] Start: 1965 Sex assigned at Not on file [facility] Start: 07-06-2024 End: 11-16-2024 Gender identity Not on file [facility] Start: 07-06-2024 Tobacco smoking stat us [facility] Smokes tobacco daily [facility] History of tobacco use Cigarette Smoker [facility] Start: 07-06-2024 End: 11-16-2024 Cigarettes smoked current (pack per day) - Reported 1 [facility] Start: 07-06-2024 End: 07-19-2024 Tobacco use and exposure User of smokeless tobacco [facility] History of tobacco use Snuff User [facility] Start: 07-06-2024 End: 11-16-2024 Alcoholic beverage intake Current drinker of alcohol (finding) [facility] Start: 12-30-2023 End: 07-19-2024 Tobacco smoking status [facility] Ex-smoker [facility] History of tobacco use Current smoker [facility] History of tobacco use [facility]ws [facility] Adolescent depressio n [facility] Start: 12-30-2023 Alcohol Comment weekly [facility] Start: 03-08-2015 Sex Male (finding) [facility] Clinical Notes 12-30-2023 to 11-16-2024 MAGGY Gonzalez - 11/16/2024 11:00 AM ANDRESSA Davis - 10/19/2024 11:00 AM Micah Crowley, PT - 08/18/2024 10:00 AM Mirian Crowley, PT - 08/02/2024 8:30 AM ESTPatient Instructions Note Date & Type Note Facility 11-16-2024 History of Presen t illness Narrative Images from the original note were not included. Chief Complaint Patient presents with Neck Pain Subjective Son Dumas is a 59 y.o. male. History of Present Illness NECK PAIN -follows with pain management -states he had injections on Thursday -neck pain has improved -reports a lot of stiffness -denies any radiating -reports numbness and tingling in hands -states this has increased -N/T in hands is interrupting his sleep -reports he has been dropping things often BACK PAIN -MRI to review -located in low back -radiating in to buttocks and legs -right side worse than left -denies any numbness or tingling -admits to imbalance -denies any recent falls Review of Systems Constitutional: Negative for appetite [...] Musculoskeletal: Positive for arthralgias, back pain (low back), gait problem, neck pain and neck stiffness. Negative for myalgias. Neurological: Positive for weakness and numbness. Negative for dizziness, tremors, seizures, syncope, facial asymmetry, speech difficulty, light-headedness and headaches. Positive for paresthesias Psychiatric/Behavioral: Negative for confusion, hallucinations and suicidal ideas. The patient is not nervous/anxious. Home Medication List Baclofen 10mg tablet 2 times daily Tizanidine 4mg capsule nightly Etodolac 500mg tablet 2 times daily Past Medical History: Diagnosis Date Carpal tunnel syndrome, bilateral Dislocation, shoulder 1991 Fracture of hand 2012 Numbness Positive CATHY (antinuclear antibody) Ulnar neuropathy Weakness of limb Past Surgical History: Procedure Laterality Date NO PAST SURGERIES No family history on file. Social History Tobacco Use Smoking status: Former Current packs/day: 1.00 Average packs/day: 1 pack/day for 40.0 years (40.0 ttl pk-yrs) Types: Cigarettes Smokeless tobacco: Current Types: Snuff Substance Use Topics Alcohol use: Yes Alcohol/week: 6.0 standard drinks of alcohol Types: 6 Cans of beer per week Allergies: Bee venom Vitals: 11/16/24 1102 BP: 130/82 Pulse: 78 Resp: 16 SpO2: 96% Body mass index is 48.01 kg/m . weight: 354 lb Neurologic exam: Mental status and general [...] wrist extensors , wrist flexor , and shrimper strength 5/5. LUE strength deltoid , biceps , triceps , wrist extensors , wrist flexor , and shrimper strength 5/5. RLE strength iliopsoas, quadriceps, tibialis anterior, and plantar flexion strength 5/5. LLE strength iliopsoas, quadriceps, tibialis anterior, and plantar flexion strength 5/5. Tone and bulk are normal. Sensory: Sensation is intact to light touch throughout all four extremities. Sensation is intact to temperature in all extremities. Reflexes: RUE biceps reflex 3+ , brachioradialis reflex 3+. LUE biceps reflex 3+ , brachioradialis reflex 3+. RLE knee reflex 2+. LLE knee reflex 2+. Gait: Normal. Review and summary of old records: MRI of lumbar spine without contrast 11/03/2024: revealed lower lumbar degenerative changes without high-grade stenosis. Left lateral disc protrusion at L4-L5 potentially contacts the left L4 nerve root MRI of the cervical spine without contrast at [facility] on 09/26/2024: Multilevel degenerative changes most significant at C4-C5, C5-C6 and C6-C7 where there is bilateral neuroforaminal stenosis as described. Mildly enlarged right level 2/3 lymph node. Recommend follow-up with CT Soft tissue neck for complete characterization. T2 vertebral body hemangioma. Visualized posterior fossa and cervical cord signal appear unremarkable. At C4-C5, there is a mild broad-based disc osteophyte complex, facet and uncovertebral arthropathy results in moderate right greater than left neuroforaminal stenosis. Mild spinal canal stenosis. At C5-C6, there is a mild broad-based disc osteophyte complex, ligamentum flavum hypertrophy and facet and uncovertebral arthropathy results in moderate to severe right and severe left neuroforaminal stenosis. Mild to moderate spinal canal stenosis. At C6-C7, there is a mild broad-based disc osteophyte complex with moderate to severe left neuroforaminal stenosis. Mild spinal canal stenosis. [facility] total Ab on 07/21/2024: Negative. < 0.2. The patient did undergo rheumatology evaluation previously which was largely unremarkable per documentation from Dr. Casarez. EMG of the bilateral upper extremities at [facility] on 07/05/2024: Bilateral ulnar neuropathies [...] Diagnoses and all orders for this visit: Neck pain DDD (degenerative disc disease), cervical Mr. Dumas is a 59-year-old male who reports posterior neck pain with radiation to the bilateral shoulders. Also, with intermittent sensory disturbance in the bilateral hands (3rd through 5th digits) and subjective, generalized weakness. MRI of the cervical spine on 09/26/2024 identified multilevel spondylosis, most prominent at C4-C5, C5-C6 and C6-C7 where there were varying degrees of spinal canal and neural foraminal stenosis. No evidence of myelopathy or abnormal cord signal on MRI. Certainly, the MRI findings could cause cervical radiculopathy and contribute to many of the patient's symptoms. I would not expect them to explain his pinky numbness due to the lack of significant neural foraminal narrowing at C7-C8. That may be more due to his ulnar neuropathies. No focal weakness, pathologic hyperreflexia, or sensory disturbance are noted on clinical exam. He has tried and failed physical therapy for his symptoms without success. He is now following pain management for injections. PLAN: - Continue following with pain management - Could consider referral to neurosurgery in the future if symptoms worsen or fail to improve with conservative measures Enlarged lymph node MRI of the cervical spine incidentally identified a mildly enlarged right level 2/[address] of the neck soft tissues was recommended. Patient has been advised previously to follow up with PCP regarding this. PLAN: - Continue following with PCP for management Ulnar neuropathy of both upper extremities The patient has bilateral ulnar neuropathies (mild on the right and moderate on the left) as identified on [facility] EMG from 07/05/2024. These are likely contributory to his intermittent hand paresthesias affecting the 3rd through 5th digits. He has been referred to orthopedic surgery. PLAN: - Avoid leaning on the elbows and avoid prolonged elbow flexion - Follow up with orthopedic surgery for further evaluation and treatment, consideration of decompressive therapy Bilateral carpal tunnel syndrome [facility] EMG from 07/05/2024 also identified bilateral carpal tunnel syndrome (minimal). The patient does not seem to have many symptoms in relation to this. PLAN: - Monitor clinically Lumbosacral radiculopathy Low back pain It is my impression that the patient likely has lumbosacral radiculopathy. He reports symptoms clinically consistent with this. The patient reports significant low back pain with intermittent radiation in the S1 dermatomal distribution. Also, with subjective lower extremity weakness. He reports progressive symptoms despite conservative measures including therapy and has dermatomal distribution of symptoms and subjective weakness. His daily activities are being limited by his pain. Lumbar spine MRI revealed degenerative changes without high-grade stenosis. There was left lateral disc protrusion at L4-L5 potentially contacts the left L4 nerve root. PLAN: - I reviewed lumbar spine MRI - Consider epidural injections with pain management; he is currently following with them for management of neck pain - I offered patient medication for neuropathic pain; he would like to hold off for now Diagnosis and treatment options discussed in detail. All questions answered. The patient verbalizes understanding and is agreeable to the plan. Discussion in layman's terms. Follow up in the office within 2 months; sooner if needed for new or worsening symptoms. documented in this encounter [facility] 10-19-2024 History of Presen t illness Narrative Images from the original note were not included. [address] [place] [address] SUBJECTIVE: Patient ID: Son Dumas is a 59 y.o. male. Chief [...] Thought content normal. Judgment: Judgment normal. ASSESSMENT/PLAN: Son was seen today for lump on hand [...] medications, tests, or procedures Follow-up: Next scheduled Rosa IselaANDRESSA Lynch 10/19/24 1251 [facility] History of Presen t illness Narrative Images from the original note were not included. Physical Therapy Physical Therapy Treatment Visit Patient Name: Son Dumas Today's Date: 08/18/2024 Encounter Diagnoses Name Primary? Neck pain Yes Chronic midline low back pain without sciatica Multiple joint pain Paresthesia Visit number: 3 (7 total in 2023) (10 visits total) Time In: 9:50 am Time Out: 10:35 am Supervised Time: 40 min Total Time: 45 min Subjective Son Dumas 59 y.o. male presents to physical [...] get MRI approved. documented in this encounter [facility] 08-15-2024 Telephone encounter Note Noted, thank you! [facility] Work Phone: 08-15-2024 Miscellaneous Notes Noted, thank you! Appeal request has been approved and denial has been overturned. I faxed the MRI Cervical Spine order to [facility] with updated approval information. Sending back to Lisbeth for FYI I spoke with Mumtazramiro who confirmed that the appeal request has been received and is pending/ open. Appeal ID# [id number] Appeal request with physical therapy notes 1-7 have been faxed to [facility]. Will continue to follow Hello! The patient has reportedly been in physical therapy since 06/20/2024, so he should have completed six weeks by now. Is [id number] still an option for his MRI cervical spine denial, or are we able to file an appeal for this? documented in this encounter [facility] 08-15-2024 Telephone encounter Note Appeal request has been approved and denial has been overturned. I faxed the MRI Cervical Spine order to [facility] with updated approval information. Sending back to Lisbeth for FYI [facility] 08-15-2024 Telephone encounter Note I spoke with Allen who confirmed that the appeal request has been received and is pending/ open. Appeal ID# [id number] [facility] 08-09-2024 Telephone encounter Note Appeal request with physical therapy notes 1-7 have been faxed to [facility]. Will continue to follow [facility] 08-08-2024 Telephone encounter Note Hello! The patient has reportedly been in physical therapy since 06/20/2024, so he should have completed six weeks by now. Is [id number] still an option for his MRI cervical spine denial, or are we able to file an appeal for this? [facility] 08-02-2024 History of Presen t illness Narrative Images from the original note were not included. Physical Therapy Physical Therapy Treatment Visit Patient Name: Son Dumas Today's Date: 08/02/2024 Encounter Diagnoses Name Primary? Neck pain Yes Chronic midline low back pain without sciatica Multiple joint pain Paresthesia Visit number: 7 Time In: 8:20 am Time Out: 9:05 am Supervised Time: 40 min Total Time: 45 min Subjective Son Dumas 59 y.o. male presents to physical [...] Continue as able. documented in this encounter [facility] 07-25-2024 History of Presen t illness Narrative Images from the original note were not included. Physical Therapy Physical Therapy Treatment Visit Patient Name: Son Dumas Today's Date: 07/25/2024 Encounter Diagnoses Name Primary? Neck pain Yes Chronic midline low back pain without sciatica Visit number: 6 Time In: 9:20 am Time Out: 10:00 am Supervised Time: 38 min Total Time: 40 min Subjective Son Dumas 59 y.o. male presents to physical [...] Continue as able. documented in this encounter [facility] 07-20-2024 History of Presen t illness Narrative Images from the original note were not included. NAME: Son Dumas : 1965 HISTORY OF PRESENT ILLNESS: NEW PT Son Dumas is an 59 y.o. @ male. [...] Date Carpal tunnel syndrome, bilateral Dislocation, shoulder 1990 Fracture of hand 2011 Numbness Positive CATHY (antinuclear antibody) Ulnar neuropathy [...] is normal. Strength additional comments: 5/5 EQUAL [employer]Y [employer]IMMER [employer]ENGTH Neurovascular Right Right neurovascular exam is [...] Signs Painful arc test: positive Biceps/govind Signs Glenwood's test: positive Instability Signs Anterior apprehension test: [...] requiring urgent evaluation. documented in this encounter [facility] 07-14-2024 Telephone encounter Note PT office notes needed faxed to [facility] -[phone] Ty [facility] 07-14-2024 Miscellaneous Notes PT office notes needed faxed to [employer] [facility] -[phone] Ty documented in this encounter [facility] 07-06-2024 History of Presen t illness Narrative Images from the original note were not included. Chief Complaint Patient presents with Neck Pain Subjective Son Dumas is a 59 y.o. male. History [...] wrist extensors , wrist flexor , and shrimper strength 5/5. LUE strength deltoid , biceps , triceps , wrist extensors , wrist flexor , and shrimper strength 5/5. RLE strength iliopsoas, quadriceps, tibialis [...] reflex 2+. LLE Knee reflex 2+. Coordination: [id number] testing normal. Rapid alternating movements are normal. Gait: Normal. Review and summary of old records: EMG of the bilateral upper extremities at [facility] on 07/05/2024: Bilateral ulnar neuropathies [...] this would be best managed by a tumbling barrel painter Ulnar neuropathy of both upper extremities [...] needed for new or worsening symptoms. Lisbeth Middleton NP [facility] documented in this encounter [facility] 07-06-2024 Instructions Lisbeth Middleton NP - 07/06/2024 8:40 AM EST - MRI of the cervical spine ([facility]) - Referral to orthopedic surgery ([facility]) - Referral to pain management ([facility]) documented in this encounter [facility] 07-05-2024 History of Presen t illness Narrative Images from the original note were not included. Reason for Appointment: EMG Patient: Son Dumas : 1965 EMG Computer: [employer] Referring Physician: Dr. Aniceto Casarez EMG: ALFREDO field spec: Christiano KIRAN(R) Office Location: [place] Reason for EMG: c/o numbness/tingling in left hand, joint pain throughout body, neck pain. No hx of DM. Not on blood thinners. Comments: Procedure was explained to the patient who expressed understanding. Patient appeared to have tolerated the test well despite some discomfort due to the nature of the test. documented in this encounter [facility] 06-20-2024 History of Presen t illness Narrative Images from the original note were not included. Physical Therapy Physical Therapy Evaluation Visit Patient Name: Son Dumas Today's Date: 06/20/2024 Encounter Diagnoses Name Primary? Neck pain Yes Chronic midline low back pain without sciatica Multiple joint pain Paresthesia Visit number: 1 Subjective Son Dumas 58 y.o. male presents to physical [...] per both neck and back index's at [facility] Short Term Goal #4: pt will be ind with HEP for maintenance at [facility] and not feel the need for further Dx testing/intervention at [facility] Pt will benefit from skilled PT to address the above impairments for 1-3x/week for 6 weeks pending pt needs/progress I hereby deem this POC medically necessary. Please sign below. Date: documented in this encounter [facility] 06-09-2024 History of Presen t illness Narrative Images from the original note were not included. Chief complaint: Paresthesias and neck pain Subjective Son Dumas, 58 y.o., male Son presents today for a neurologic consult at [...] , wrist extensors , wrist flexor , shrimper strength 5/5. LUE Strength deltoid , biceps , triceps , wrist extensors , wrist flexor , shrimper strength 5/5. RLE Strength illopsoas, quadriceps, tibialis [...] reflex 2+ . Martin's sign negative. Coordination: Lnbvel-vn-[id number] testing and rapid alternating movements are normal [...] and return instructions documented in this encounter [facility] 05-10-2024 History of Presen t illness Narrative Images from the original note were not included. [address] [place] [address] SUBJECTIVE: Patient ID: Son Dumas is a 58 y.o. male. Chief [...] Thought content normal. Judgment: Judgment normal. ASSESSMENT/PLAN: Son was seen today for pain in the [...] Guzman 05/10/24 1413 documented in this encounter [facility] 02-01-2024 History of Presen t illness Narrative Images from the original note were not included. [address] [place] [address] SUBJECTIVE: Patient ID: Son Dumas is a 58 y.o. male. Chief [...] History: Diagnosis Date Back pain Hypertension Lupus (CMS-HCC) Visual impairment There is no immunization history [...] Thought content normal. Judgment: Judgment normal. ASSESSMENT/PLAN: Son was seen today for annual exam. Diagnoses [...] Cologuard. Our office will reach out to [facility], resend referral. Labs drawn in office today ALL QUESTIONS ANSWERED Total time spent was 30 minutes: Preparing to see the patient (e.g., review of tests) Obtaining and/or reviewing separately obtained history Performing a medically appropriate examination and/or evaluation Counseling and educating the patient/family/caregiver Ordering medications, tests, or procedures Follow-up: Annual physical ANDRESSA Guzman 02/01/24 5890 [facility] History of Presen t illness Narrative Images from the original note were not included. [address] [place] [address] SUBJECTIVE: Patient ID: Son Dumas is a 58 y.o. male. Chief [...] Thought content normal. Judgment: Judgment normal. ASSESSMENT/PLAN: Son was seen today for new patient. Diagnoses [...] Guzman 12/30/23 1634 documented in this encounter [facility] Evaluation note No assessment inform ation available [facility] Work Phone: Evaluation note Diagnosis Paresthesia- Primary [...] of skin sensation documented [facility] [facility]* Diagnosis Neck pain- Primary Cervicalgia Chronic midline low back pain without sciatica Multiple joint pain Pain in joint, multiple sites Paresthesia Disturbance of skin sensation documented in this encounter [facility] HealthcareEvaluation note* Diagnosis Positive CATHY (antinuclear antibody)- Primary Other and unspecified nonspecific immunological findings Pain in other joint Joint swelling Effusion of joint, site unspecified Screening for diabetes mellitus (DM) Screening for diabetes mellitus [facility] Diagnosis Annual physical exam- Primary Routine general medical examination at a health care facility Blood tests for routine general physical examination Laboratory examination ordered as part of a routine general medical examination Encounter for screening for malignant neoplasm of prostate Special screening for malignant neoplasm of colon Special screening for malignant neoplasms, colon [facility] Diagnosis Chronic pain syndrome- Primary Pain in joints Pain in joint, multiple sites [facility] Diagnosis Enlarged lymph node in neck- Primary Ganglion cyst of tendon sheath of left hand [facility] Diagnosis Neck pain- Primary Cervicalgia DDD (degenerative disc disease), cervical Degeneration of cervical intervertebral disc Lumbosacral radiculopathy Thoracic or lumbosacral neuritis or radiculitis, unspecified Low back pain at multiple sites documented in this encounter [facility] HealthcareInstructions* Attachments The following attachments cannot be sent through Care Everywhere. * Swollen Joints (Lao) [facility] Attachments The following attachments cannot be sent through Care Everywhere. * Yearly Physical for Adults (Lao) [facility] Attachments The following attachments cannot be sent through Care Everywhere. * Joint Pain (Lao) [facility] Attachments The following attachments cannot be sent through Care Everywhere. * Ganglion cyst (Lao) [facility] Consultation (Routine) - Pending Review Specialty Diagnoses / Procedures Referred By Andriy lambert Referred To Contact Rheumatology Diagnoses Positive CATHY (antinuclear antibody) Pain in other joint Joint swelling Rosa Isela Haskins, WALL TAPER HELPER-STORAGE BATTERY INSPECTOR AND TESTER [address] [place] [address] Pa San MD [address] [place] [address] Referral ID Status Reason Start Date Expiration Date Visits Requested Visits Authorized [id number] Pending Review Specialty Services Required 12/30/2023 12/29/2024 1 1 Critical access hospital for referral (narrative)* Consultation (Routine) - Pending Review Specialty Diagnoses / Procedures Referred By Andriy lambert Referred To Contact Neurology Diagnoses Pain in joints Rosa Isela Haskins APRNMATTHIEU [address] [place] [address] David Watts MD [address] [facility] [address] [place], [place] [id number] Referral ID Status Reason Start Date Expiration Date Visits Requested Visits Authorized [id number] Pending Review Specialty Services Required 05/10/2024 05/10/2025 1 1 Critical access hospital for visit Narrative* Consultation (Routine) - Closed Specialty Diagnoses / Procedures Referred By Andriy t Referred To Contact Neurology Diagnoses Pain in unspecified joint Procedures CA OFFICE/OUTPATIENT NEW LOW MDM 30 MINUTES Rosa Isela Haskins CRNP [address] [facility] [place] [address] Phone: tel: fax: David Watts MD [address] [place] [address] Phone: tel: fax: Referral ID Status Reason Start Date Expiration Date V isits Requested Visits Authorized [id number] Closed Consult and Treat 05/12/2024 11/08/2024 1 1 [facility] N[facility]* Rehabilitation - Outpatient (Routine) - Authorized Specialty Diagnoses / Procedures Referred By Contac t Referred To Contact Physical Therapy Diagnoses Paresthesia Procedures CA OFFICE/OUTPATIENT NEW HIGH MDM 60 MINUTES Aniceto Casarez DO [address] [place] [address] Phone: tel: fax: Ludy Crowley, PT [address] [place] [address] Phone: tel: fax: Referral ID Status Reason Start Date Expiration Date Visits Requested Visits Authorized [id number] Authorized Specialty Services Required 06/09/2024 12/06/2024 30 30 [facility] Narrative* Rehabilitation - Outpatient (Routine) - Authorized Specialty Diagnoses / Procedures Referred By Contac t Referred To Contact Physical Therapy Diagnoses Paresthesia Procedures CA OFFICE/OUTPATIENT NEW HIGH MDM 60 MINUTES Aniceto Casarez DO [address] [place] [address] Phone: tel: fax: Ludy Crowley, PT [address] [facility] [address] Phone: tel: fax: Referral ID Status Reason Start Date Expiration Date Visits Requested Visits Authorized [id number] Authorized Specialty Services Required 06/09/2024 08/02/2024 30 30 [facility]Reason for [facility] Narrative* Rehabilitation - Outpatient (Routine) - Authorized Specialty Diagnoses / Procedures Referred By Contac t Referred To Contact Physical Therapy Diagnoses Paresthesia of skin Procedures CA THERAPEUTIC PX 1/> AREAS EACH 15 MIN EXERCISES Aniceto Casarez DO [address] [address] Phone: tel: fax: Ludy Crowley, PT [address] [place] [address] Phone: tel: fax: Referral ID Status Reason Start Date Expiration Date V isits Requested Visits Authorized [id number] Authorized 08/03/2024 08/02/2025 23 23 [facility] Summary Purpose Family History No Family [...] section and content) DATE CREATED AUTHOR 02/02/2024 [facility] DATE CREATED AUTHOR AUTHOR'S ORGANIZ ATION 03/31/2024 [facility] DATE CREATED AUTHOR AUTHOR'S ORGANIZ ATION 10/21/2024 [facility] DATE CREATED AUTHOR AUTHOR'S ORGANIZ ATION 11/06/2024 [facility] DATE CREATED AUTHOR AUTHOR'S ORGANIZ ATION 11/18/2024 [facility] DATE CREATED AUTHOR AUTHOR'S ORGANIZ ATION 12/28/2024 [facility] Care Teams (unrecognized sec tion and content) Team Status: Inactive Member Role Status Dates Pa San MD Attending Provider Active St art: March 17, 2024 End: March 17, 2024 Fish Agent Relationship Specialty Start Date End Date Rosa Isela Haskins CRNP [address] [place] [address] Referring Physician Nurse Practitioner 05/13/24 Aniceto Casarez DO [address] [place] [address] Referring Physician Neurology 06/09/24 Fish Agent Relationship Specialty Start Date End Date Rosa Isela Haskins CRNP [address] [place] [address] Referring Physician Nurse Practitioner 05/13/24 Aniceto Casarez DO [address] [address] Referring Physician Neurology 06/09/24 Fish Agent Relationship Specialty Start Date End Date Rosa Isela Haskins CRNP [address] [place] [address] Referring Physician Nurse Practitioner 05/13/24 Aniceto Casarez DO [address] [place] [phone] Referring Physician Neurology 06/09/24 Fish Agent Relationship Specialty Start Date End Date Rosa Isela Haskins CRNP [address] [place] [address] Referring Physician Nurse Practitioner 05/13/24 Aniceto Casarez DO [address] [address] Referring Physician Neurology 06/09/24 Fish Agent Relationship Specialty Start Date End Date Rosa Isela Haskins CRNP [address] [place] [address] Referring Physician Nurse Practitioner 05/13/24 Aniceto Casarez DO [address] [place] [phone] Referring Physician Neurology 06/09/24 Fish Agent Relationship Specialty Start Date End Date Rosa Isela Haskins CRNP [address] [place] [address] Referring Physician Nurse Practitioner 05/13/24 Aniceto Casarez DO [address] [address] Referring Physician Neurology 06/09/24 Fish Agent Relationship Specialty Start Date End Date Rosa Isela Haskins CRNP [address] [place] [address] Referring Physician Nurse Practitioner 05/13/24 Aniceto Casarez DO [address] [address] Referring Physician Neurology 06/09/24 Fish Agent Relationship Specialty Start Date End Date Rosa Isela Haskins CRNP [address] [place] [address] Referring Physician Nurse Practitioner 05/13/24 Aniceto Casarez DO [address] [address] Referring Physician Neurology 06/09/24 Fish Agent Relationship Specialty Start Date End Date Rosa Isela Haskins CRNP [address] [place] [address] Referring Physician Nurse Practitioner 05/13/24 Aniceto Casarez DO [address] [address] Referring Physician Neurology 06/09/24 Fish Agent Relationship Specialty Start Date End Date Rosa Isela Haskins CRNP [address] [place] [address] Referring Physician Nurse Practitioner 05/13/24 Aniceto Casarez DO [address] [address] Referring Physician Neurology 06/09/24 Fish Agent Relationship Specialty Start Date End Date Rosa Isela Haskins CRNP [address] [place] [address] Referring Physician Nurse Practitioner 05/13/24 Aniceto Casarez DO [address] [address] Referring Physician Neurology 06/09/24 Fish Agent Relationship Specialty Start Date End Date Rosa Isela Haskins CRNP [address] [place] [address] Referring Physician Nurse Practitioner 05/13/24 Aniceto Casarez DO [address] [address] Referring Physician Neurology 06/09/24 Fish Agent Relationship Specialty Start Date End Date Rosa Isela Haskins CRNP [address] [place] [address] Referring Physician Nurse Practitioner 05/13/24 Aniceto Casarez DO [address] [address] Referring Physician Neurology 06/09/24 Fish Agent Relationship Specialty Start Date End Date Rosa Isela Haskins CRNP [address] [place] [address] Referring Physician Nurse Practitioner 05/13/24 Aniceto Casarez DO [address] [address] Referring Physician Neurology 06/09/24 Fish Agent Relationship Specialty Start Date End Date Rosa Isela Haskins CRNP [address] [place] [address] Referring Physician Nurse Practitioner 05/13/24 Aniceto Casarez DO [address] [address] Referring Physician Neurology 06/09/24 Fish Agent Relationship Specialty Start Date End Date Rosa Isela Haskins CRNP [address] [place] [address] Referring Physician Nurse Practitioner 05/13/24 Aniceto Casarez DO [address] [place] [phone] Referring Physician Neurology 06/09/24 Fish Agent Relationship Specialty Start Date End Date Rosa Isela Haskins CRNP [address] [place] [address] Referring Physician Nurse Practitioner 05/13/24 Aniceto Casarez DO [address] [address] Referring Physician Neurology 06/09/24 Fish Agent Relationship Specialty Start Date End Date Rosa Isela Haskins CRNP [address] [place] [address] Referring Physician Nurse Practitioner 05/13/24 Aniceto Casarez DO [address] [place] [phone] Referring Physician Neurology 06/09/24 Fish Agent Relationship Specialty Start Date End Date Rosa Isela Haskins CRNP [address] [place] [address] Referring Physician Nurse Practitioner 05/13/24 Aniceto Casarez DO [address] [place] [phone] Referring Physician Neurology 06/09/24 Fish Agent Relationship Specialty Start Date End Date Rosa Isela Haskins CRNP [address] [place] [address] Referring Physician Nurse Practitioner 05/13/24 Aniceto Casarez DO [address] [place] [phone] Referring Physician Neurology 06/09/24 Fish Agent Relationship Specialty Start Date End Date Rosa Isela Haskins APRN-CNP [address] [place] [address] PCP - General Family Medicine 11/27/20 Fish Agent Relationship Specialty Start Date End Date Rosa Isela Haskins APRN-STORAGE BATTERY INSPECTOR AND TESTER [address] [place] [address] PCP - General Family Medicine 11/27/20 Fish Agent Relationship Specialty Start Date End Date Rosa Isela Haskins WALL TAPER HELPER-STORAGE BATTERY INSPECTOR AND TESTER [address] [place] [address] PCP - General Family Medicine 11/27/20 Fish Agent Relationship Specialty Start Date End Date Rosa Isela Haskins CRNP [address] [place] [address] Referring Physician Nurse Practitioner 05/13/24 Aniceto Casarez DO [address] [address] Referring Physician Neurology 06/09/24 Fish Agent Relationship Specialty Start Date End Date Unallocated, Marino Perez MD [address] [facility] [place] [address] PCP - General Family Medicine 11/16/24 Rosa Isela Haskins CRNP Referring Physician Nurse Practitioner 05/13/24 Aniceto Casarez DO [address] [address] Referring Physician Neurology 06/09/24 Angela Estevez PA [address] [facility] [address] [place] [address] Physician Senior Cytotechnologist Neurology 11/16/24 Fish Agent Relationship Specialty Start Date End Date Unallocated, [place] [address] PCP - General Family Medicine 11/16/24 Rosa Isela Haskins CRNP Referring Physician Nurse Practitioner 05/13/24 Aniceto Casarez DO [address] [place] [phone] Referring Physician Neurology 06/09/24 Angela Estevez PA [address] [place] [phone] Physician Senior Cytotechnologist Neurology 11/16/24 Goals (unrecognized section and content) Goals may [...] Ulnar neuropathy of both upper extremities Lisbeth Middleton NP [address] [place] [address] Phone: tel: Jr. Carson James, DO [address] [place] [address] Phone: tel: fax: Referral ID Status Reason Start Date Expiration Date V isits Requested Visits Authorized [id number] Closed Consult and Treat 07/06/2024 01/02/2025 1 1 Reason Comments New Patient Reason Comments Annual Exam Reason Comments pain in the joints- pain scale 6 Reason Comments lump on hand / go over results Reason Comments Neck Pain FOR RECORDS PERTAINING TO PATIENTS WHO ARE [...] BE BASED ON THE PRIMARY CLINICAL RECORDS. [facility]. provides no warranty or guarantee of the accuracy or completeness of information in this document.
[2025-01-02 09:03] VITALS: BP 125/82; PULSE 80; TEMP 36.8; O2SAT 94
[2025-01-02 09:42] VITALS: BP 156/85; PULSE 85; O2SAT 97
[2025-01-02 09:43] VITALS: BP 152/85; PULSE 81; O2SAT 97
[2025-01-02] MEDS: LIDOCAINE HCL 2% 400 MG/20 ML MDV INJ (09:45)
[2025-01-02] MEDS: BUPIVACAINE HCL 0.25% PF 25 MG/10 ML VIAL 8 ML INJ (09:45)
--- NOTE | 2025-01-02 09:47 | W.PM.PROCNOT ---
Date of procedure: 01/02/25 Pre-op diagnosis: Pain due to cervical spondylosis without myelopathy Post-op diagnosis: same as pre-op Procedure: Procedure: Bilateral C4-5, 5-6 medial branch block Medications: Bupivacaine 0.25% 6cc The patient was seen and examined in the preoperative holding area.? The informed consent was obtained and placed on the chart.? The patient was brought to the medical procedure unit and placed in the prone position.? A timeout was completed verifying correct patient, procedure site, positioning, plan, and special equipment.? Using aseptic technique, the needle was placed at left C4.? Under direct fluoroscopic visualization, a Quincke tip needle was advanced to the midpoint of the waist of the articular pillar at the respective medial branch segment. The above-mentioned injectate was placed in a 1 mL aliquot proceeded by negative aspiration.? The needle was removed.? The procedure was completed at all left C5, 6. The same procedure, at the same levels, was then completed on the right side. Insertion site was covered.? Patient was taken to the postprocedural recovery area and monitored for an appropriate length of time before found suitable for discharge in the accompaniment of a responsible adult. Anesthesia: Local Surgeon: Frank Bah Pathology: none sent Condition: stable Disposition: no change
== END 2025-01-02 09:51 | disposition home or self-care (01) ==
LOC: SURGOUT 08:21
PROVIDERS: PCP Nurse Practitioner; Visit Provider Anesthesiology
DX: M47.812 Spondylosis without myelopathy or radiculopathy, cervical region (principal); M54.2 Cervicalgia
CPT/HCPCS: 64490; 64491; J0665

== ENCOUNTER 2025-01-12 09:37 | Outpatient (OUT) | payer OTHER, SELFPAY ==
--- OUTSIDE RECORDS SUMMARY | 2025-01-12 09:50 | XMS_ITS | CCD ---
Author Organization [facility] Care Team Providers Care Retail Sales Clerk Name Role Phone ANG, ROSA ISELA Referring Unavailable HASKINS, ROSA ISELA Primary Care Unavailable HASKINS, ROSA ISELA Referring Unavailable HASKINS, ROSA ISELA Primary Care Unavailable MD Pa San Attending Provider Pa San Attending Unavailable Pa San Admitting Unavailable Haskins LANDON, Rosa Isela Unavailable Aniceto Casarez DO Unavailable Rosa Isela Lyn [...] HASKINS, ROSA ISELA Dia Primary Care Unavailable GRIMES, LISBETH Referring Unavailable HASKINS, ROSA ISELA J Primary Care Unavailable GRIMES, LISBETH Referring Unavailable HASKINS, ROSA ISELA J [...] CASTANEDA Attending Unavailable ANICETO CASAREZ Referring Unavailable ANICETO CASAREZ Attending Unavailable LISBETH GRIMES Attending Unavailable KAMRONTERSNANDINI CASTANEDA Attending Unavailable HERMELINDOANICETO BLUM Referring Unavailable TATTERSNANDINI CASTANEDA Attending Unavailable HERMELINDOANICETO BLUM Referring Unavailable PA MATHEWS Attending Unavailable LISBETH GRIMES Referring Unavailable TATTERSNANDINI CASTANEDA Attending Unavailable ANICETO CASAREZ Referring Unavailable CARLINELUDY AGEE Attending Unavailable HERMELINDO, ANICETO Referring Unavailable CARLINELUDY AGEE Attending Unavailable ANICETO CASAREZ Referring Unavailable DANNI LUNA Attending Unavailable HERMELINDO, ANICETO Referring Unavailable TATTERSTONYA, NANDINI Attending Unavailable ANICETO CASAREZ Referring Unavailable CARLINELUDY AGEE Attending Unavailable ANICETO CASAREZ Referring Unavailable LISBETH GRIMES Attending Unavailable ANGELA ESTEVEZ Attending Unavailable Giedraitis , Frank Valverde Attending Unavailable Giedraitis , Frank Valverde Attending Unavailable Giedraitis , Frank Valverde Attending Unavailable Allergies Allergy Classification [...] take 1 capsule by mouth at bedti ms tiZANidine (Zanaflex) 4 MG capsule Take 4 mg by mouth at bedtime Active Completed/Discontinued Medications Medication Drug Class(es) Dates Sig (Normalized) Sig (Original) [id number] 0.3 ml EPINEPHrine 1 mg/ml auto-injector (1 [...] Ole Richardson MD on 11/06/2024 6:08 AM [facility] MR LUMBAR SPINE WO CONTon MR [...] Mcdonnell MD on 11/04/2024 11:30 AM Normal [facility] MR CERVICAL SPINE WO CONTon 09-26-2024 MR [...] Cristhian Lilly on 09/26/2024 1:29 PM Normal [facility] B. burgdorferi IgG+IgM Qn (S )on 07-21-2024 LYME TOTAL <0.2 Normal <0.9 [facility] Comment on above: Result Comment: Interpretation-------- <0.9 Negative 0.9 - 1.0 Equivocal >1.0 Positive No serological evidence of Borrelia infection.A non-reactive result does not exclude the possibility of Borrelia infection and cannot exclude early infection with B.burgdorferi. If Lyme borreliosis is suspected, a second sample should be collected and tested 2-4 weeks later. Performed By: #### 8 2477-, 1987-12, 2638-10, 94758-6 #### [facility] ([id number]) [address], [address] [place] [address] CRP [Mass/Vol]on 07-21-2024 C REACTIVE PROTEIN 0.9 mg/dL High 0.000-0.744 [facility] Comment on above: Performed By: #### 8 2477-, 1987-12, 2638-10, 97649-7 #### [facility] ([id number]) [address], [address] [place] [address] ESR (Bld) [Velocity]on 07-21 [facility] ESR Photometric method (Bld) [Velocity]on 07-21-2024 ESR, ERYTHROCYTE SEDIMENTATION RATE 10 mm/h Normal 0-20 [facility] Comment on above: Performed By: #### 8 2477-, 1987-12, 2639-3, 78713-7 #### [facility] ([id number]) [address], [address] [place] [address] Myoglobin [Mass/Vol]on 07-21 SERUM MYOGLOBIN 25.3 ng/mL Normal 17.4-105.7 [facility] Comment on above: Performed By: #### 8 2477-, 1987-12, 2638-3, 12613-3 #### [facility] ([id number]) [address], [address] [place] [address] Sedimentation rate, automate don 07-21-2024 ESR (Bld) [Velocity] 10 mm/h 0 - 20 mm/h [facility] Comment on above: PERFORMED AT [facility] [address],[place] [address] EMG 2 Extremitieson 07-05-20 24 Ulnar neuropathy bilateral, axonal loss, non localizable Carpal tunnel, minimal bilaterally [facility] NVC 11-12 Nerveson 4 Ulnar neuropathy bilateral, axonal loss, non localizable Carpal tunnel syndrome bilaterally, minimal bilaterally [facility] CATHY Antinuclear Antibodieson 03-17-2024 Antinuclear Abs, IFA Negative Normal . [facility] Comment on above: Result Comment: Nega tive <1:80 Borderline 1:80 Positive >1:80 ICAP nomenclature: AC-0 For more information about Hep-2 cell patterns use ANApatterns.org, the official website for the International Consensus on Antinuclear Antibody (CATHY) Patterns (ICAP). Performed at: - [facility] [id number] Code Number Stamper: Mil Guzman PhD, Phone: [phone] Performed By: #### T SH3, PP, ESR, CBC, CMP, CK, ADDONUAPLUS, CRP, T4F #### [facility] [address] [place] [address] [place] #### HBCAB, RPR W RFX, HBSAG, HCV RX PCR, HBSAB, ALDOLASE #### [facility] , Activated partial thrombopla stin time (aPTT) in platelet poor plasma by coagulation aOrdered By: Pa San on 03-17-2024 aPTT Coag (PPP) [Time] 34.1 s 25.1-36.5 [facility] Comment on above: A hematocrit value g reater than 55% may lead to inaccurate results in coagulation testing. Patients having hematocrit values >55% require a special collection tube for coagulation studies. Please contact the laboratory at [phone] for redraw instructions. Alanine aminotransferase [En zymatic activity/volume] in Serum or PlasmaOrdered By: Pa San on 03-17-2024 ALT [Catalytic activity/Vol] 39 U/L Normal 7-52 [facility] Comment on above: Performed By: #### T SH3, PP, ESR, CBC, CMP, CK, ADDONUAPLUS, CRP, T4F #### [address] #### HBCAB, RPR W RFX, HBSAG, HCV RX PCR, HBSAB, ALDOLASE #### [facility] , Albumin [Mass/volume] in Ser um or Plasma by Bromocresol green (BCG) dye binding methoOrdered By: Pa San on 03-17-2024 Albumin BCG dye [Mass/Vol] 4.6 g/dL 3.5-5.7 [facility] Aldolaseon 03-17-2024 Aldolase 4.7 U/L Normal 3.3-10.3 [facility] Comment on above: Result Comment: Perf ormed at: - [facility] [address] [id number] Code Number Stamper: Mil Guzman PhD, Phone: [phone] PERFORMED BY: [place] [address] PATHOLOGIST PROTECTIVE SERVICES OFFICER JOSE ROGERS M.D. Performed By: #### T SH3, PP, ESR, CBC, CMP, CK, ADDONUAPLUS, CRP, T4F #### [facility] [address] [place] [address] [place] #### HBCAB, RPR W RFX, HBSAG, HCV RX PCR, HBSAB, ALDOLASE #### [facility] , Alkaline phosphatase [Enzyma tic activity/volume] in Serum or PlasmaOrdered By: Pa San on 03-17-2024 ALP [Catalytic activity/Vol] 73 U/L Normal 34-104 [facility] Comment on above: Performed By: #### T SH3, PP, ESR, CBC, CMP, CK, ADDONUAPLUS, CRP, T4F #### [place] [address] [place] #### HBCAB, RPR W RFX, HBSAG, HCV RX PCR, HBSAB, ALDOLASE #### [facility] , Antithyroglobulin Abon 03-17 Antithyroglobulin Ab <1.0 Normal 0.0-0.9 [facility] Comment on above: Result Comment: Thyr oglobulin Antibody measured by [employer]ud Eva Methodology It should be noted that the presence of thyroglobulin antibodies may not be pathogenic nor diagnostic, especially at very low levels. The assay manager integrated has found that four percent of individuals without evidence of thyroid disease or autoimmunity will have positive TgAb levels up to 4 IU/mL. Performed at: [address] [id number] Code Number Stamper: Mil Guzman PhD, Phone: [phone] Performed By: #### T SH3, PP, ESR, CBC, CMP, CK, ADDONUAPLUS, CRP, T4F #### [place] [address] [place] #### HBCAB, RPR W RFX, HBSAG, HCV RX PCR, HBSAB, ALDOLASE #### [facility] , Aspartate aminotransferase [ Enzymatic activity/volume] in Serum or PlasmaOrdered By: Pa San on 03-17-2024 AST [Catalytic activity/Vol] 28 U/L Normal 13-39 [facility] Comment on above: Performed By: #### T SH3, PP, ESR, CBC, CMP, CK, ADDONUAPLUS, CRP, T4F #### [facility] [address] [place] [address] #### HBCAB, RPR W RFX, HBSAG, HCV RX PCR, HBSAB, ALDOLASE #### [facility] , Automated basophil %Ordered By: Pa Mena on 03-17-2024 Basophils/100 WBC (Bld) 1.1 % Normal . [facility] Comment on above: Performed By: #### T SH3, PP, ESR, CBC, CMP, CK, ADDONUAPLUS, CRP, T4F #### [address] #### HBCAB, RPR W RFX, HBSAG, HCV RX PCR, HBSAB, ALDOLASE #### [facility] , Automated basophil countOrde red By: Pa San on 03-17-2024 Basophils (Bld) [#/Vol] 0.1 10*3/uL Normal 0.0-0.2 [facility] Comment on above: Performed By: #### T SH3, PP, ESR, CBC, CMP, CK, ADDONUAPLUS, CRP, T4F #### [address] #### HBCAB, RPR W RFX, HBSAG, HCV RX PCR, HBSAB, ALDOLASE #### [facility] , Automated blood monocyte cou ntOrdered By: Pa San on 03-17-2024 Monocytes (Bld) [#/Vol] 0.6 10*3/uL Normal 0.0-0.8 [facility] Comment on above: Performed By: #### T SH3, PP, ESR, CBC, CMP, CK, ADDONUAPLUS, CRP, T4F #### [place] [address] [place] #### HBCAB, RPR W RFX, HBSAG, HCV RX PCR, HBSAB, ALDOLASE #### [facility] , Automated eosinophil %Ordere d By: Pa San on 03-17-2024 Eosinophils/100 WBC (Bld) 2.4 % Normal . [facility] Comment on above: Performed By: #### T SH3, PP, ESR, CBC, CMP, CK, ADDONUAPLUS, CRP, T4F #### [address] #### HBCAB, RPR W RFX, HBSAG, HCV RX PCR, HBSAB, ALDOLASE #### [facility] , Automated eosinophil countOr dered By: Pa San on 03-17-2024 Eosinophils (Bld) [#/Vol] 0.2 10*3/uL Normal 0.0-0.45 [facility] Comment on above: Performed By: #### T SH3, PP, ESR, CBC, CMP, CK, ADDONUAPLUS, CRP, T4F #### [place] [address] [place] #### HBCAB, RPR W RFX, HBSAG, HCV RX PCR, HBSAB, ALDOLASE #### [facility] , Automated epithelial cells c ount in urine sediment (number/area)Ordered By: Pa San on 03-17-2024 Epithelial cells Auto (Urine sed) [#/Area] None seen [HPF] 0-2 [facility] Automated monocyte %Ordered By: Pa San on 03-17-2024 Monocytes/100 WBC (Bld) 9.3 % Normal . [facility] Comment on above: Performed By: #### T SH3, PP, ESR, CBC, CMP, CK, ADDONUAPLUS, CRP, T4F #### [place] [address] [place] #### HBCAB, RPR W RFX, HBSAG, HCV RX PCR, HBSAB, ALDOLASE #### [facility] , Automated neutrophil %Ordere d By: Pa San on 03-17-2024 Neutrophils/100 WBC (Bld) 62.7 % Normal . [facility] Comment on above: Performed By: #### T SH3, PP, ESR, CBC, CMP, CK, ADDONUAPLUS, CRP, T4F #### [facility] [address] [place] [address] #### HBCAB, RPR W RFX, HBSAG, HCV RX PCR, HBSAB, ALDOLASE #### [facility] , Bacteria [Presence] in Urine by AutomatedOrdered By: Padewayne San on 03-17-2024 Bacteria Auto Ql (U) None seen [HPF] None Seen [facility] Bilirubin Test strip Ql (U)O rdered By: Pa Mena on 03-17-2024 Bilirubin Ql (U) Negative Negative [facility] Bilirubin.total [Mass/volume ] in Serum or PlasmaOrdered By: Pa San on 03-17-2024 Bilirubin [Mass/Vol] 0.4 mg/dL Normal 0.3-1.0 [facility] Comment on above: Performed By: #### T SH3, PP, ESR, CBC, CMP, CK, ADDONUAPLUS, CRP, T4F #### [facility] [address] [place] [address] #### HBCAB, RPR W RFX, HBSAG, HCV RX PCR, HBSAB, ALDOLASE #### [facility] , C reactive protein [Mass/vol ume] in Serum or PlasmaOrdered By: Pa San on 03-17-2024 CRP [Mass/Vol] < 0.5 mg/dL 0.0-0.5 [facility] C-Reactive Proteinon 024 CRP [Mass/Vol] mg/L Normal 0.0-0.5 [facility] Comment on above: Performed By: #### T SH3, PP, ESR, CBC, CMP, CK, ADDONUAPLUS, CRP, T4F #### [facility] [address] [place] [address] [place] #### HBCAB, RPR W RFX, HBSAG, HCV RX PCR, HBSAB, ALDOLASE #### [facility] , Calcium [Mass/volume] in Ser um or PlasmaOrdered By: Pa San on 03-17-2024 Calcium [Mass/Vol] 9.1 mg/dL Normal 8.6-10.3 [facility] Comment on above: Performed By: #### T SH3, PP, ESR, CBC, CMP, CK, ADDONUAPLUS, CRP, T4F #### [facility] [address] [place] [address] #### HBCAB, RPR W RFX, HBSAG, HCV RX PCR, HBSAB, ALDOLASE #### [facility] , Carbon dioxide, total [Moles /volume] in Serum or PlasmaOrdered By: Pa San on 03-17-2024 CO2 [Moles/Vol] 26.0 mmol/L Normal 21.0-31.0 [facility] Comment on above: Performed By: #### T SH3, PP, ESR, CBC, CMP, CK, ADDONUAPLUS, CRP, T4F #### [facility] [address] [place] [address] #### HBCAB, RPR W RFX, HBSAG, HCV RX PCR, HBSAB, ALDOLASE #### [facility] , Chloride [Moles/volume] in S caity or PlasmaOrdered By: Pa San on 03-17-2024 Chloride [Moles/Vol] 106 mmol/L Normal 98-107 [facility] Comment on above: Performed By: #### T SH3, PP, ESR, CBC, CMP, CK, ADDONUAPLUS, CRP, T4F #### [facility] [address] [place] [address] [place] #### HBCAB, RPR W RFX, HBSAG, HCV RX PCR, HBSAB, ALDOLASE #### [facility] , Chromatin Antibodyon 024 Chromatin Antibody <0.2 Normal 0.0-0.9 [facility] Comment on above: Result Comment: Perf ormed at: - [facility] [address] [id number] Code Number Stamper: Mil Guzman PhD, Phone: [phone] PERFORMED BY: [address] [place] [address] PATHOLOGIST PROTECTIVE SERVICES OFFICER JOSE ROGERS M.D. Performed By: #### T SH3, PP, ESR, CBC, CMP, CK, ADDONUAPLUS, CRP, T4F #### [address] #### HBCAB, RPR W RFX, HBSAG, HCV RX PCR, HBSAB, ALDOLASE #### [facility] , Coagulation Profileon 2023 aPTT Coag (Bld) [Time] 34.1 s Normal 25.1-36.5 [facility] Comment on above: Result Comment: A he matocrit value greater than 55% may lead to inaccurate results in coagulation testing. Patients having hematocrit values >55% require a special collection tube for coagulation studies. Please contact the laboratory at [phone] for redraw instructions. PERFORMED BY: [place] [address] PATHOLOGIST PROTECTIVE SERVICES OFFICER JOSE ROGERS M.D. Performed By: #### T SH3, PP, ESR, CBC, CMP, CK, ADDONUAPLUS, CRP, T4F #### [address] #### HBCAB, RPR W RFX, HBSAG, HCV RX PCR, HBSAB, ALDOLASE #### [facility] , Color of Urine by AutoOrdere d By: Pa San on 03-17-2024 Color (U) Yellow Normal Yellow [facility] Comment on above: Order Comment: Name Collection Type:: Clean-Voided Midstream Performed By: #### T SH3, PP, ESR, CBC, CMP, CK, ADDONUAPLUS, CRP, T4F #### [address] #### HBCAB, RPR W RFX, HBSAG, HCV RX PCR, HBSAB, ALDOLASE #### [facility] , Complement C3on 03-17-2024 Complement C3 132 mg/dL Normal 82-167 [facility] Comment on above: Result Comment: Perf ormed at: - [facility] [address] [id number] Code Number Stamper: Mil Guzman PhD, Phone: [phone] Performed By: #### T SH3, PP, ESR, CBC, CMP, CK, ADDONUAPLUS, CRP, T4F #### [address] #### HBCAB, RPR W RFX, HBSAG, HCV RX PCR, HBSAB, ALDOLASE #### [facility] , Complement C4on 03-17-2024 Complement C4 26 mg/dL Normal 12-38 [facility] Comment on above: Performed By: #### T SH3, PP, ESR, CBC, CMP, CK, ADDONUAPLUS, CRP, T4F #### [address] #### HBCAB, RPR W RFX, HBSAG, HCV RX PCR, HBSAB, ALDOLASE #### [facility] , Complement Total (CH50)on Complement Total (CH50) >60 Normal >41 [facility] Comment on above: Result Comment: [...] out of range values. Performed at: - [facility] [id number] Code Number Stamper: Mil Guzman PhD, Phone: [phone] PERFORMED BY: [place] [address] PATHOLOGIST PROTECTIVE SERVICES OFFICER JOSE ROGERS M.D. Performed By: #### T SH3, PP, ESR, CBC, CMP, CK, ADDONUAPLUS, CRP, T4F #### [place] [id number] [place] #### HBCAB, RPR W RFX, HBSAG, HCV RX PCR, HBSAB, ALDOLASE #### [facility] , Complete Blood Count Auto Di ffon 03-17-2024 Mean Corpuscular HGB Conc 34.2 g/dL Normal 32.5-35.6 [facility] Comment on above: Performed By: #### T SH3, PP, ESR, CBC, CMP, CK, ADDONUAPLUS, CRP, T4F #### [address] #### HBCAB, RPR W RFX, HBSAG, HCV RX PCR, HBSAB, ALDOLASE #### [facility] , NRBC% 0.2 /100{WBC} Normal 0-0.5 [facility] Comment on above: Performed By: #### T SH3, PP, ESR, CBC, CMP, CK, ADDONUAPLUS, CRP, T4F #### [address] #### HBCAB, RPR W RFX, HBSAG, HCV RX PCR, HBSAB, ALDOLASE #### [facility] , Comprehensive Metabolic Pane solomon 03-17-2024 Albumin [Mass/Vol] 4.6 g/dL Normal 3.5-5.7 [facility] Comment on above: Performed By: #### T SH3, PP, ESR, CBC, CMP, CK, ADDONUAPLUS, CRP, T4F #### [place] [address] [place] #### HBCAB, RPR W RFX, HBSAG, HCV RX PCR, HBSAB, ALDOLASE #### [facility] , GFR/1.73 sq M.predicted MDRD (S/P/Bld) [Vol rate/Area] mL/min/{1.73_m2} Normal [facility] Comment on above: Performed By: #### T SH3, PP, ESR, CBC, CMP, CK, ADDONUAPLUS, CRP, T4F #### [facility] [address] [place] [address] #### HBCAB, RPR W RFX, HBSAG, HCV RX PCR, HBSAB, ALDOLASE #### [facility] , Creatine kinase [Enzymatic a ctivity/volume] in Serum or PlasmaOrdered By: Pa San on 03-17-2024 CK [Catalytic activity/Vol] 79 U/L Normal 30-223 [facility] Comment on above: Result Comment: PERF ORMED BY: [place] [address] PATHOLOGIST PROTECTIVE SERVICES OFFICER JOSE ROGERS M.D. Performed By: #### T SH3, PP, ESR, CBC, CMP, CK, ADDONUAPLUS, CRP, T4F #### [address] #### HBCAB, RPR W RFX, HBSAG, HCV RX PCR, HBSAB, ALDOLASE #### [facility] , Creatinine [Mass/volume] in Serum or PlasmaOrdered By: Pa San on 03-17-2024 Creatinine [Mass/Vol] 0.85 mg/dL Normal 0.70-1.30 [facility] Comment on above: Performed By: #### T SH3, PP, ESR, CBC, CMP, CK, ADDONUAPLUS, CRP, T4F #### [address] #### HBCAB, RPR W RFX, HBSAG, HCV RX PCR, HBSAB, ALDOLASE #### [facility] , Dipstick and Microscopicon 0 03-17-2024 Appearance (U) Clear Normal Clear [facility] Comment on above: Order Comment: Name Collection Type:: Clean-Voided Midstream Performed By: #### T SH3, PP, ESR, CBC, CMP, CK, ADDONUAPLUS, CRP, T4F #### [address] #### HBCAB, RPR W RFX, HBSAG, HCV RX PCR, HBSAB, ALDOLASE #### [facility] , Bacteria,Urine None Seen Normal None Seen [facility] Comment on above: Order Comment: Name Collection Type:: Clean-Voided Midstream Performed By: #### T SH3, PP, ESR, CBC, CMP, CK, ADDONUAPLUS, CRP, T4F #### [address] #### HBCAB, RPR W RFX, HBSAG, HCV RX PCR, HBSAB, ALDOLASE #### [facility] , Bilirubin,Urine Negative Normal Negative [facility] Comment on above: Order Comment: Name Collection Type:: Clean-Voided Midstream Performed By: #### T SH3, PP, ESR, CBC, CMP, CK, ADDONUAPLUS, CRP, T4F #### [address] #### HBCAB, RPR W RFX, HBSAG, HCV RX PCR, HBSAB, ALDOLASE #### [facility] , Glucose Ql (U) Normal Normal Normal [facility] Comment on above: Order Comment: Name Collection Type:: Clean-Voided Midstream Performed By: #### T SH3, PP, ESR, CBC, CMP, CK, ADDONUAPLUS, CRP, T4F #### [address] #### HBCAB, RPR W RFX, HBSAG, HCV RX PCR, HBSAB, ALDOLASE #### [facility] , Hyaline Casts,Urine None Seen Normal 0-8 [facility] Comment on above: Order Comment: Name Collection Type:: Clean-Voided Midstream Result Comment: PERF ORMED BY: [place] [address] PATHOLOGIST PROTECTIVE SERVICES OFFICER JOSE ROGERS M.D. Performed By: #### T SH3, PP, ESR, CBC, CMP, CK, ADDONUAPLUS, CRP, T4F #### [address] #### HBCAB, RPR W RFX, HBSAG, HCV RX PCR, HBSAB, ALDOLASE #### [facility] , Ketones Ql (U) Negative Normal Negative [facility] Comment on above: Order Comment: Name Collection Type:: Clean-Voided Midstream Performed By: #### T SH3, PP, ESR, CBC, CMP, CK, ADDONUAPLUS, CRP, T4F #### [address] #### HBCAB, RPR W RFX, HBSAG, HCV RX PCR, HBSAB, ALDOLASE #### [facility] , Leukocyte esterase Test strip Ql (U) Negative Normal Negative [facility] Comment on above: Order Comment: Name Collection Type:: Clean-Voided Midstream Performed By: #### T SH3, PP, ESR, CBC, CMP, CK, ADDONUAPLUS, CRP, T4F #### [address] #### HBCAB, RPR W RFX, HBSAG, HCV RX PCR, HBSAB, ALDOLASE #### [facility] , Nitrite,Urine Negative Normal Negative [facility] Comment on above: Order Comment: Name Collection Type:: Clean-Voided Midstream Performed By: #### T SH3, PP, ESR, CBC, CMP, CK, ADDONUAPLUS, CRP, T4F #### [address] #### HBCAB, RPR W RFX, HBSAG, HCV RX PCR, HBSAB, ALDOLASE #### [facility] , Occult Blood,Urine Negative Normal Negative [facility] Comment on above: Order Comment: Name Collection Type:: Clean-Voided Midstream Performed By: #### T SH3, PP, ESR, CBC, CMP, CK, ADDONUAPLUS, CRP, T4F #### [address] #### HBCAB, RPR W RFX, HBSAG, HCV RX PCR, HBSAB, ALDOLASE #### [facility] , Protein,Urine Negative Normal Negative [facility] Comment on above: Order Comment: Name Collection Type:: Clean-Voided Midstream Performed By: #### T SH3, PP, ESR, CBC, CMP, CK, ADDONUAPLUS, CRP, T4F #### [address] #### HBCAB, RPR W RFX, HBSAG, HCV RX PCR, HBSAB, ALDOLASE #### [facility] , RBC LM.HPF (Urine sed) [#/Area] 0 /[HPF] Normal 0-4 [facility] Comment on above: Order Comment: Name Collection Type:: Clean-Voided Midstream Performed By: #### T SH3, PP, ESR, CBC, CMP, CK, ADDONUAPLUS, CRP, T4F #### [address] #### HBCAB, RPR W RFX, HBSAG, HCV RX PCR, HBSAB, ALDOLASE #### [facility] , Specificy [place],Urine 1.014 Normal 1.001-1.030 [facility] Comment on above: Order Comment: Name Collection Type:: Clean-Voided Midstream Performed By: #### T SH3, PP, ESR, CBC, CMP, CK, ADDONUAPLUS, CRP, T4F #### [address] #### HBCAB, RPR W RFX, HBSAG, HCV RX PCR, HBSAB, ALDOLASE #### [facility] , Squamous Epithelial Cell,Urine None Seen Normal 0-2 [facility] Comment on above: Order Comment: Name Collection Type:: Clean-Voided Midstream Performed By: #### T SH3, PP, ESR, CBC, CMP, CK, ADDONUAPLUS, CRP, T4F #### [address] #### HBCAB, RPR W RFX, HBSAG, HCV RX PCR, HBSAB, ALDOLASE #### [facility] , Urobilinogen,Urine Normal Normal Normal [facility] Comment on above: Order Comment: Name Collection Type:: Clean-Voided Midstream Performed By: #### T SH3, PP, ESR, CBC, CMP, CK, ADDONUAPLUS, CRP, T4F #### [address] #### HBCAB, RPR W RFX, HBSAG, HCV RX PCR, HBSAB, ALDOLASE #### [facility] , WBC,Urine None Seen Normal 0-4 [facility] Comment on above: Order Comment: Name Collection Type:: Clean-Voided Midstream Performed By: #### T SH3, PP, ESR, CBC, CMP, CK, ADDONUAPLUS, CRP, T4F #### [address] #### HBCAB, RPR W RFX, HBSAG, HCV RX PCR, HBSAB, ALDOLASE #### [facility] , Erythrocyte Sedimentation Ra elijah 03-17-2024 ESR (Bld) [Velocity] 32 mm/h High 0-19 [facility] Comment on above: Result Comment: PERF ORMED BY: [place] [address] PATHOLOGIST PROTECTIVE SERVICES OFFICER JOSE ROGERS M.D. Performed By: #### T SH3, PP, ESR, CBC, CMP, CK, ADDONUAPLUS, CRP, T4F #### [address] #### HBCAB, RPR W RFX, HBSAG, HCV RX PCR, HBSAB, ALDOLASE #### [facility] , Erythrocyte distribution wid th [Ratio] by Automated countOrdered By: Pa San on 03-17-2024 Erythrocyte distribution width (RBC) [Ratio] 13.5 % Normal 12.0-14.8 [facility] Comment on above: Performed By: #### T SH3, PP, ESR, CBC, CMP, CK, ADDONUAPLUS, CRP, T4F #### [address] #### HBCAB, RPR W RFX, HBSAG, HCV RX PCR, HBSAB, ALDOLASE #### [facility] , Erythrocyte sedimentation ra te by Photometric methodOrdered By: Pa Blackmanrow on 03-17-2024 ESR Photometric method (Bld) [Velocity] 32 mm/hr High 0-19 [facility] Erythrocytes [#/area] in Uri ne sediment by Automated countOrdered By: Pa San on 03-17-2024 RBC Auto (Urine sed) [#/Area] 0-1 [HPF] 0-4 [facility] Erythrocytes [#/volume] in B lood by Automated countOrdered By: Pa Blackmanrow on 03-17-2024 RBC (Bld) [#/Vol] 4.88 10*6/uL Normal 3.90-5.60 [facility] Comment on above: Performed By: #### T SH3, PP, ESR, CBC, CMP, CK, ADDONUAPLUS, CRP, T4F #### [address] #### HBCAB, RPR W RFX, HBSAG, HCV RX PCR, HBSAB, ALDOLASE #### [facility] , Glucose [Mass/volume] in Ser um or PlasmaOrdered By: Pa Blackmanrow on 03-17-2024 Glucose [Mass/Vol] 88 mg/dL Normal 70-100 [facility] Comment on above: ADA recommended refe rence rangeRandom Glucose Reference Range is dependent on time and content of last meal. Glucose of more than 200 mg/dL in a nonstressed, ambulatory subject supports the diagnosis of Diabetes Mellitus. Result Comment: [place] om Glucose Reference Range is dependent on time and content of last meal. Glucose of more than 200 mg/dL in a nonstressed, ambulatory subject supports the diagnosis of Diabetes Mellitus. ADA recommended reference range Performed By: #### T SH3, PP, ESR, CBC, CMP, CK, ADDONUAPLUS, CRP, T4F #### [address] [place] [address] [place] #### HBCAB, RPR W RFX, HBSAG, HCV RX PCR, HBSAB, ALDOLASE #### [facility] , Hematocrit [Volume Fraction] of Blood by Automated countOrdered By: Pa San on 03-17-2024 Hematocrit (Bld) [Volume fraction] 46.7 % Normal 38.8-50.0 [facility] Comment on above: Performed By: #### T SH3, PP, ESR, CBC, CMP, CK, ADDONUAPLUS, CRP, T4F #### [facility] [address] [place] [address] #### HBCAB, RPR W RFX, HBSAG, HCV RX PCR, HBSAB, ALDOLASE #### [facility] , Hemoglobin [Mass/volume] in BloodOrdered By: Pa San on 03-17-2024 Hemoglobin (Bld) [Mass/Vol] 16.0 g/dL Normal 13.0-17.0 [facility] Comment on above: Performed By: #### T SH3, PP, ESR, CBC, CMP, CK, ADDONUAPLUS, CRP, T4F #### [address] #### HBCAB, RPR W RFX, HBSAG, HCV RX PCR, HBSAB, ALDOLASE #### [facility] , Hep C Ab wRfx to Qnt PCRon 0 03-17-2024 Hepatitis C Virus Antibody Non-Reactive Normal Non Reactive [facility] Comment on above: Performed By: #### T SH3, PP, ESR, CBC, CMP, CK, ADDONUAPLUS, CRP, T4F #### [facility] [address] [place] [address] #### HBCAB, RPR W RFX, HBSAG, HCV RX PCR, HBSAB, ALDOLASE #### [facility] , Interpretation Hepatitis C Comment Normal . [facility] Comment on above: Result Comment: Not infected with HCV unless early or acute infection is suspected (which may be delayed in an immunocompromised individual), or other evidence exists to indicate HCV infection. Performed By: #### T SH3, PP, ESR, CBC, CMP, CK, ADDONUAPLUS, CRP, T4F #### [address] #### HBCAB, RPR W RFX, HBSAG, HCV RX PCR, HBSAB, ALDOLASE #### [facility] , Hepatitis B Core Antibodyon 03-17-2024 Hepatitis B Core Antibody Negative Normal Negative [facility] Comment on above: Result Comment: Perf ormed at: [facility] [address] [id number] Code Number Stamper: Mil Guzman PhD, Phone: [phone] Performed By: #### T SH3, PP, ESR, CBC, CMP, CK, ADDONUAPLUS, CRP, T4F #### [address] #### HBCAB, RPR W RFX, HBSAG, HCV RX PCR, HBSAB, ALDOLASE #### [facility] , Hepatitis B Surface Antibody on 03-17-2024 Hepatitis B Surface Antibody Non-Reactive Normal . [facility] Comment on above: Result Comment: Non Reactive: Inconsistent with immunity, less than 10 mIU/mL Reactive: Consistent with immunity, greater than 9.9 mIU/mL Performed By: #### T SH3, PP, ESR, CBC, CMP, CK, ADDONUAPLUS, CRP, T4F #### [address] #### HBCAB, RPR W RFX, HBSAG, HCV RX PCR, HBSAB, ALDOLASE #### [facility] , Hepatitis B Surface Antigeno n 03-17-2024 HBsAg Screen Negative Normal Negative [facility] Comment on above: Result Comment: PERF ORMED BY: [place] [address] PATHOLOGIST PROTECTIVE SERVICES OFFICER JOSE ROGERS M.D. Performed By: #### T SH3, PP, ESR, CBC, CMP, CK, ADDONUAPLUS, CRP, T4F #### [facility] [address] [place] [address] [place] #### HBCAB, RPR W RFX, HBSAG, HCV RX PCR, HBSAB, ALDOLASE #### [facility] , INR in Platelet poor plasma by Coagulation assayOrdered By: Pa San on 03-17-2024 INR Coag (PPP) [Relative time] 1.0 {INR} Normal [facility] Comment on above: INR Therapeutic Rang e [...] CBC, CMP, CK, ADDONUAPLUS, CRP, T4F #### [facility] [address] [place] [address] [place] #### HBCAB, RPR W RFX, HBSAG, HCV RX PCR, HBSAB, ALDOLASE #### [facility] , Ketones Auto test strip (U) [Mass/Vol]Ordered By: Pa San on 03-17-2024 Ketones (U) [Mass/Vol] Negative Negative [facility] - UrinalysisOrder ed By: Pa San on 03-17-2024 Hyaline casts LM Ql (Urine sed) None seen [LPF] 0-8 [facility] Leukocytes [#/area] in Urine sediment by Automated countOrdered By: Pa San on 03-17-2024 WBC Auto (Urine sed) [#/Area] None seen [HPF] 0-4 [facility] Leukocytes [#/volume] correc ameya for nucleated erythrocytes in Blood by Automated counOrdered By: Pa San on 03-17-2024 WBC corrected for nucl RBC Auto (Bld) [#/Vol] 6.5 10*3/uL 4.1-10.5 [facility] Leukocytes [#/volume] in Blo od by Automated countOrdered By: Pa San on 03-17-2024 WBC (Bld) [#/Vol] 6.5 10*3/uL Normal 4.1-10.5 [facility] Comment on above: Performed By: #### T SH3, PP, ESR, CBC, CMP, CK, ADDONUAPLUS, CRP, T4F #### [facility] [address] [place] [address] #### HBCAB, RPR W RFX, HBSAG, HCV RX PCR, HBSAB, ALDOLASE #### [facility] , Lupus Anticoagulant Compon 0 03-17-2024 Dilute Prothrombin Time (dPt) 35.0 Normal 0.0-47.6 [facility] Comment on above: Performed By: #### T SH3, PP, ESR, CBC, CMP, CK, ADDONUAPLUS, CRP, T4F #### [facility] [address] [place] [address] #### HBCAB, RPR W RFX, HBSAG, HCV RX PCR, HBSAB, ALDOLASE #### [facility] , dPT Confirm Ratio 1.04 Normal 0.00-1.34 [facility] Comment on above: Performed By: #### T SH3, PP, ESR, CBC, CMP, CK, ADDONUAPLUS, CRP, T4F #### [facility] [address] [place] [address] [place] #### HBCAB, RPR W RFX, HBSAG, HCV RX PCR, HBSAB, ALDOLASE #### [facility] , DRVVT Lupus 31.6 Normal 0.0-47.0 [facility] Comment on above: Performed By: #### T SH3, PP, ESR, CBC, CMP, CK, ADDONUAPLUS, CRP, T4F #### [address] #### HBCAB, RPR W RFX, HBSAG, HCV RX PCR, HBSAB, ALDOLASE #### [facility] , Interpretation Comment: Normal . [facility] Comment on above: Result Comment: No l upus anticoagulant was detected. Performed at: - [address] [id number] Code Number Stamper: Elvira Barajas MD, Phone: [phone] PERFORMED BY: [place] [address] PATHOLOGIST PROTECTIVE SERVICES OFFICER JOSE ROGERS M.D. Performed By: #### T SH3, PP, ESR, CBC, CMP, CK, ADDONUAPLUS, CRP, T4F #### [address] #### HBCAB, RPR W RFX, HBSAG, HCV RX PCR, HBSAB, ALDOLASE #### [facility] , PTT-LA 37.6 Normal 0.0-43.5 [facility] Comment on above: Performed By: #### T SH3, PP, ESR, CBC, CMP, CK, ADDONUAPLUS, CRP, T4F #### [address] #### HBCAB, RPR W RFX, HBSAG, HCV RX PCR, HBSAB, ALDOLASE #### [facility] , Thrombin Time 17.0 Normal 0.0-23.0 [facility] Comment on above: Performed By: #### T SH3, PP, ESR, CBC, CMP, CK, ADDONUAPLUS, CRP, T4F #### [address] #### HBCAB, RPR W RFX, HBSAG, HCV RX PCR, HBSAB, ALDOLASE #### [facility] , Lymphocytes [#/volume] in Bl ood by Automated countOrdered By: Pa San on 03-17-2024 Lymphocytes (Bld) [#/Vol] 1.6 10*3/uL Normal 1.00-4.8 [facility] Comment on above: Performed By: #### T SH3, PP, ESR, CBC, CMP, CK, ADDONUAPLUS, CRP, T4F #### [address] #### HBCAB, RPR W RFX, HBSAG, HCV RX PCR, HBSAB, ALDOLASE #### [facility] , Lymphocytes/100 leukocytes i n Blood by Automated countOrdered By: Pa San on 03-17-2024 Lymphocytes/100 WBC (Bld) 24.5 % Normal . [facility] Comment on above: Performed By: #### T SH3, PP, ESR, CBC, CMP, CK, ADDONUAPLUS, CRP, T4F #### [place] [address] [place] #### HBCAB, RPR W RFX, HBSAG, HCV RX PCR, HBSAB, ALDOLASE #### [facility] , MCH [Entitic mass] by Automa ameya countOrdered By: Pa San on 03-17-2024 MCH (RBC) [Entitic mass] 32.7 pg Normal 27.5-35.2 [facility] Comment on above: Performed By: #### T SH3, PP, ESR, CBC, CMP, CK, ADDONUAPLUS, CRP, T4F #### [place] [address] [place] #### HBCAB, RPR W RFX, HBSAG, HCV RX PCR, HBSAB, ALDOLASE #### [facility] , MCHC Auto (RBC) [Mass/Vol]Or dered By: Pa San on 03-17-2024 MCHC (RBC) [Mass/Vol] 34.2 g/dL 32.5-35.6 [facility] MCV [Entitic volume] by Auto mated countOrdered By: Pa San on 03-17-2024 MCV (RBC) [Entitic vol] 95.7 fL Normal 83.5-101 [facility] Comment on above: Performed By: #### T SH3, PP, ESR, CBC, CMP, CK, ADDONUAPLUS, CRP, T4F #### [facility] [address] [place] [address] #### HBCAB, RPR W RFX, HBSAG, HCV RX PCR, HBSAB, ALDOLASE #### [facility] , Neutrophils [#/volume] in Bl ood by Automated countOrdered By: Pa Mena on 03-17-2024 Neutrophils (Bld) [#/Vol] 4.1 10*3/uL Normal 1.8-7.7 [facility] Comment on above: Performed By: #### T SH3, PP, ESR, CBC, CMP, CK, ADDONUAPLUS, CRP, T4F #### [facility] [address] [place] [address] #### HBCAB, RPR W RFX, HBSAG, HCV RX PCR, HBSAB, ALDOLASE #### [facility] , Nitrite Test strip Ql (U)Ord ered By: Pa Blackmanrow on 03-17-2024 Nitrite Ql (U) Negative Negative [facility] No Panel InformationOrdered By: Pa San on 03-17-2024 Estimated GFR (CKD-EPI) > 60.0 mL/Min [facility] Creatinine Clearance (Chem N/A [facility] Nucleated erythrocytes [Pres ence] in Blood by Automated countOrdered By: Pa San on 03-17-2024 Nucleated RBC Auto Ql (Bld) 0.2 /100{WBC} 0-0.5 [facility] Platelet mean volume [Entiti c volume] in Blood by Automated countOrdered By: Pa San on 03-17-2024 Platelet mean volume (Bld) [Entitic vol] 8.9 fL Normal 6.6-10.1 [facility] Comment on above: Performed By: #### T SH3, PP, ESR, CBC, CMP, CK, ADDONUAPLUS, CRP, T4F #### [facility] [address] [place] [address] [place] #### HBCAB, RPR W RFX, HBSAG, HCV RX PCR, HBSAB, ALDOLASE #### [facility] , Platelets [#/volume] in Bloo d by Automated countOrdered By: Pa San on 03-17-2024 Platelets (Bld) [#/Vol] 258 10*3/uL Normal 150-450 [facility] Comment on above: Performed By: #### T SH3, PP, ESR, CBC, CMP, CK, ADDONUAPLUS, CRP, T4F #### [facility] [address] [place] [address] [place] #### HBCAB, RPR W RFX, HBSAG, HCV RX PCR, HBSAB, ALDOLASE #### [facility] , Potassium [Moles/volume] in Serum or PlasmaOrdered By: Pa Blackmanrow on 03-17-2024 Potassium [Moles/Vol] 4.8 mmol/L Normal 3.5-5.1 [facility] Comment on above: Performed By: #### T SH3, PP, ESR, CBC, CMP, CK, ADDONUAPLUS, CRP, T4F #### [address] #### HBCAB, RPR W RFX, HBSAG, HCV RX PCR, HBSAB, ALDOLASE #### [facility] , Protein Auto test strip (U) [Mass/Vol]Ordered By: Pa Blackmanrow on 03-17-2024 Protein (U) [Mass/Vol] Negative Negative [facility] Protein [Mass/volume] in Ser um or PlasmaOrdered By: Padewayne San on 03-17-2024 Protein [Mass/Vol] 7.6 g/dL Normal 6.4-8.9 [facility] Comment on above: Performed By: #### T SH3, PP, ESR, CBC, CMP, CK, ADDONUAPLUS, CRP, T4F #### [facility] [address] [place] [address] [place] #### HBCAB, RPR W RFX, HBSAG, HCV RX PCR, HBSAB, ALDOLASE #### [facility] , Prothrombin time (PT)Ordered By: Pa San on 03-17-2024 PT Coag (PPP) [Time] 11.3 s Normal 9.0-12.9 [facility] Comment on above: A hematocrit value g reater than 55% may lead to inaccurate results in coagulation testing. Patients having hematocrit values >55% require a special collection tube for coagulation studies. Please contact the laboratory at [phone] for redraw instructions. Result Comment: A he matocrit value greater than 55% may lead to inaccurate results in coagulation testing. Patients having hematocrit values >55% require a special collection tube for coagulation studies. Please contact the laboratory at [phone] for redraw instructions. Performed By: #### T SH3, PP, ESR, CBC, CMP, CK, ADDONUAPLUS, CRP, T4F #### [facility] [address] [place] [address] #### HBCAB, RPR W RFX, HBSAG, HCV RX PCR, HBSAB, ALDOLASE #### [facility] , RPR w/rfx to Quant TP Abson 03-17-2024 RPR, Rfx Quant RPR Non-Reactive Normal Non Reactive [facility] Comment on above: Result Comment: Perf ormed at: - [facility] [address] [id number] Code Number Stamper: Mil Guzman PhD, Phone: [phone] PERFORMED BY: [place] [address] PATHOLOGIST PROTECTIVE SERVICES OFFICER JOSE ROGERS M.D. Performed By: #### T SH3, PP, ESR, CBC, CMP, CK, ADDONUAPLUS, CRP, T4F #### [facility] [address] [place] [address] #### HBCAB, RPR W RFX, HBSAG, HCV RX PCR, HBSAB, ALDOLASE #### [facility] , Serum globulin measurement b y calculation (mass/volume)Ordered By: Pa Blackmanrow on 03-17-2024 Globulin (S) [Mass/Vol] 3.0 g/dL [facility] Comment on above: Performed By: #### T SH3, PP, ESR, CBC, CMP, CK, ADDONUAPLUS, CRP, T4F #### [address] #### HBCAB, RPR W RFX, HBSAG, HCV RX PCR, HBSAB, ALDOLASE #### [facility] , Serum or plasma albumin/glob ulin mass ratioOrdered By: Pa Blackmanrow on 03-17-2024 Albumin/Globulin [Mass ratio] 1.5 {ratio} [facility] Comment on above: Performed By: #### T SH3, PP, ESR, CBC, CMP, CK, ADDONUAPLUS, CRP, T4F #### [address] #### HBCAB, RPR W RFX, HBSAG, HCV RX PCR, HBSAB, ALDOLASE #### [facility] , Serum or plasma anion gap de terminationOrdered By: Pa Blackmanrow on 03-17-2024 Anion gap [Moles/Vol] 12.8 mmol/L Normal 6.0-15.0 [facility] Comment on above: Performed By: #### T SH3, PP, ESR, CBC, CMP, CK, ADDONUAPLUS, CRP, T4F #### [place] [address] [place] #### HBCAB, RPR W RFX, HBSAG, HCV RX PCR, HBSAB, ALDOLASE #### [facility] , Sodium [Moles/volume] in Ser um or PlasmaOrdered By: Padewayne San on 03-17-2024 Sodium [Moles/Vol] 140 mmol/L Normal 136-145 [facility] Comment on above: Performed By: #### T SH3, PP, ESR, CBC, CMP, CK, ADDONUAPLUS, CRP, T4F #### [address] #### HBCAB, RPR W RFX, HBSAG, HCV RX PCR, HBSAB, ALDOLASE #### [facility] , Specific gravity Auto test s trip (U) [Rel density]Ordered By: Pa San on 03-17-2024 Specific gravity (U) [Rel density] 1.014 1.001-1.030 [facility] Thyroid Peroxidase Antibodie son 03-17-2024 Thyroid Peroxidase Antibodies <9 Normal 0-34 [facility] Comment on above: Result Comment: Perf ormed at: - [facility] [address] [id number] Code Number Stamper: Mil Guzman PhD, Phone: [phone] Performed By: #### T SH3, PP, ESR, CBC, CMP, CK, ADDONUAPLUS, CRP, T4F #### [address] #### HBCAB, RPR W RFX, HBSAG, HCV RX PCR, HBSAB, ALDOLASE #### [facility] , Thyrotropin [Units/volume] i n Serum or PlasmaOrdered By: Pa San on 03-17-2024 TSH Qn 3.54 m[IU]/L Normal 0.45-5.33 [facility] Comment on above: Result Comment: PERF ORMED BY: [place] [address] PATHOLOGIST PROTECTIVE SERVICES OFFICER JOSE ROGERS M.D. Performed By: #### T SH3, PP, ESR, CBC, CMP, CK, ADDONUAPLUS, CRP, T4F #### [address] #### HBCAB, RPR W RFX, HBSAG, HCV RX PCR, HBSAB, ALDOLASE #### [facility] , Thyroxine (T4) free [Mass/vo lume] in Serum or PlasmaOrdered By: Pa San on 03-17-2024 Free T4 [Mass/Vol] 0.78 ng/dL Normal 0.61-1.12 [facility] Comment on above: Performed By: #### T SH3, PP, ESR, CBC, CMP, CK, ADDONUAPLUS, CRP, T4F #### [facility] [address] [place] [address] #### HBCAB, RPR W RFX, HBSAG, HCV RX PCR, HBSAB, ALDOLASE #### [facility] , Urea nitrogen [Mass/volume] in Serum or PlasmaOrdered By: Pa San on 03-17-2024 Urea nitrogen [Mass/Vol] 11 mg/dL Normal 7-25 [facility] Comment on above: Performed By: #### T SH3, PP, ESR, CBC, CMP, CK, ADDONUAPLUS, CRP, T4F #### [facility] [address] [place] [address] #### HBCAB, RPR W RFX, HBSAG, HCV RX PCR, HBSAB, ALDOLASE #### [facility] , Urine clarity by refractomet ry automatedOrdered By: Pa San on 03-17-2024 Clarity Refractometry automated (U) Clear Clear [facility] Urine glucose measurement by automated test strip (mass/volume)Ordered By: Pa San on 03-17-2024 Glucose Auto test strip (U) [Mass/Vol] Normal mg/dL Normal [facility] Urine hemoglobin detection b y automated test stripOrdered By: Pa San on 03-17-2024 Hemoglobin Auto test strip Ql (U) Negative Negative [facility] Urine leukocyte esterase det ection by automated test stripOrdered By: Pa San on 03-17-2024 Leukocyte esterase Auto test strip Ql (U) Negative Negative [facility] Urine pH measurement by auto mated test stripOrdered By: Pa San on 03-17-2024 pH (U) 5.5 [pH] Normal 5.0-9.0 [facility] Comment on above: Order Comment: Name Collection Type:: Clean-Voided Midstream Performed By: #### T SH3, PP, ESR, CBC, CMP, CK, ADDONUAPLUS, CRP, T4F #### [facility] [address] [place] [address] [place] #### HBCAB, RPR W RFX, HBSAG, HCV RX PCR, HBSAB, ALDOLASE #### [facility] , Urobilinogen Auto test strip (U) [Mass/Vol]Ordered By: Pa San on 03-17-2024 Urobilinogen (U) [Mass/Vol] Normal mg/dL Normal [facility] Lipid 1996 panelon Cholesterol [Mass/Vol] 179 mg/dL Normal 150-200 [facility] Comment on above: Performed By: #### C BCA, 20793-4, 73334-6, CMP, 3084-1, HA1C, 98508-8, 17529-6, 5130-0, 46664-9, 48982-0, 06716-0 #### [facility] ([id number]) [address] [place] [address], [address] [place] [address] Cholesterol in HDL [Mass/Vol] 55 mg/dL Normal >39 [facility] Comment on above: Result Comment: HDL <40 mg/dL - High Risk HDL > or = 40mg/dL- Desirable HDL >60 mg/dL - Negative Risk Performed By: #### C BCA, 02758-9, 34567-9, CMP, 3084-1, HA1C, 59815-4, 55765-4, 5130-0, 57722-9, 31428-7, 90530-8 #### [facility] ([id number]) [address], [address] [place] [address] Cholesterol in LDL [Mass/Vol] 107 mg/dL Normal <130 [facility] Comment on above: Result Comment: LDL <100 mg/dL - Desirable LDL >160 mg/dL - High Risk Performed By: #### C BCA, 62214-3, 51723-9, CMP, 3084-1, HA1C, 47637-5, 77036-9, 5130-0, 83091-6, 81979-7, 62646-0 #### [facility] ([id number]) [address], [address] [place] [address] Cholesterol in VLDL [Mass/Vol] 17 mg/dL Normal 0-30 [facility] Comment on above: Performed By: #### C BCA, 52945-5, 08948-3, CMP, 3084-1, HA1C, 55217-7, 58306-6, 5130-0, 51003-0, 17192-8, 17236-0 #### [facility] ([id number]) [address], [address] [place] [address] CHOLESTEROL:HDL 3.3 Normal 1.0-5.0 [facility] Comment on above: Performed By: #### C BCA, 32398-8, 63037-2, CMP, 3084-1, HA1C, 57834-3, 07326-4, 5130-0, 58371-6, 52800-9, 93602-1 #### [facility] ([id number]) [address], [address] [place] [address] Triglyceride [Mass/Vol] 87 mg/dL Normal 27-150 [facility] Comment on above: Performed By: #### C BCA, 61911-8, 86047-5, CMP, 3084-1, HA1C, 97185-8, 96308-9, 5130-0, 86998-3, 93818-1, 90704-4 #### [facility] ([id number]) [address], [address] [place] [address] Prostate specific Ag [Mass/V ol]on 02-01-2024 PSA SCREEN 0.57 ng/mL Normal 0.00-4.00 [facility] Comment on above: Result Comment: The method used for this test is Eliud Eva DXI chemiluminescent immunoassay. Values obtained by different assay methods cannot be used interchangeably. Performed By: #### C BCA, 45547-6, 84127-7, CMP, 3084-1, HA1C, 06970-0, 29921-6, 5130-0, 97406-1, 33964-4, 15581-4 #### [facility] ([id number]) [address], [address] [place] [address] CBC AND AUTO DIFFon 12-30-19 24 ABSOLUTE BASOPHIL 0.1 X10E9/L Normal 0.0-0.2 [facility] Comment on above: Performed By: #### C GARRY, 59162-1, 17526-2, CMP, 3084-1, HA1C, 90539-8, 03412-7, 5130-0, 57640-5, 05996-2, 60300-3 #### [facility] ([id number]) [address], [address] [place] [address] ABSOLUTE NEUTROPHIL 3.7 X10E9/L Normal 1.5-6.6 [facility] Comment on above: Performed By: #### C BCA, 39406-3, 97437-6, CMP, 3084-1, HA1C, 56721-4, 55896-6, 5130-0, 44663-0, 74876-0, 74278-4 #### [facility] ([id number]) [address], [address] [place] [address] Basophils/100 WBC (Bld) 1.0 % Normal [facility] Comment on above: Performed By: #### C BCA, 77633-6, 35986-6, CMP, 3084-1, HA1C, 64567-1, 38544-6, 5130-0, 88426-2, 18261-5, 44804-1 #### [facility] ([id number]) [address], [address] [place] [address] Eosinophils (Bld) [#/Vol] 0.1 10*3/uL Normal 0.0-0.4 [facility] Comment on above: Performed By: #### C BCA, 21505-5, 84500-0, CMP, 3084-1, HA1C, 34353-0, 72250-7, 5130-0, 84631-0, 99600-1, #### [facility] ([id number]) [address], [address] [place] [address] Eosinophils/100 WBC (Bld) 2.3 % Normal [facility] Comment on above: Performed By: #### C BCA, 12736-3, 57305-5, CMP, 3084-1, HA1C, 03576-3, 76895-9, 5130-0, 29909-1, 13855-0, #### [facility] ([id number]) [address], [address] [place] [address] Erythrocyte distribution width (RBC) [Ratio] 14.1 % Normal 11.5-15.0 [facility] Comment on above: Performed By: #### C BCA, 67077-8, 18522-7, CMP, 3084-1, HA1C, 12596-1, 71086-2, 5130-0, 51142-7, 43558-4, #### [facility] ([id number]) [address], [address] [place] [address] Hematocrit (Bld) [Volume fraction] 46.5 % Normal 39-49 [facility] Comment on above: Performed By: #### C BCA, 14366-1, 69420-2, CMP, 3084-1, HA1C, 48104-0, 36761-3, 5130-0, 75504-3, 14719-1, #### [facility] ([id number]) [address], [address] [place] [address] Hemoglobin (Bld) [Mass/Vol] 15.8 g/dL Normal 13.0-17.0 [facility] Comment on above: Performed By: #### C BCA, 39311-7, 93409-7, CMP, 3084-1, HA1C, 21281-0, 29786-4, 5130-0, 67574-8, 29808-3, #### [facility] ([id number]) [address], [address] [place] [address] Lymphocytes (Bld) [#/Vol] 1.5 10*3/uL Normal 1.0-3.5 [facility] Comment on above: Performed By: #### C BCA, 63379-4, 90768-1, CMP, 3084-1, HA1C, 34471-9, 99430-6, 5130-0, 49786-4, 46378-7, #### [facility] ([id number]) [address], [address] [place] [address] Lymphocytes/100 WBC (Bld) 25.1 % Normal [facility] Comment on above: Performed By: #### C BCA, 77191-5, 00806-2, CMP, 3084-1, HA1C, 03197-0, 37868-0, 5130-0, 64916-7, 36513-8, #### [facility] ([id number]) [address], [address] [place] [address] MCH (RBC) [Entitic mass] 32.2 pg Normal 27-34 [facility] Comment on above: Performed By: #### C BCA, 60144-4, 78995-6, CMP, 3084-1, HA1C, 68553-1, 98673-1, 5130-0, 01774-5, 97311-6, 60839-8 #### [facility] ([id number]) [address], [address] [place] [address] MCHC (RBC) [Mass/Vol] 33.9 g/dL Normal 32-36 [facility] Comment on above: Performed By: #### C BCA, 31993-7, 51239-9, CMP, 3084-1, HA1C, 57883-3, 94737-5, 5130-0, 96507-6, 90988-8, 79726-5 #### [facility] ([id number]) [address], [address] [place] [address] MCV (RBC) [Entitic vol] 95 fL Normal 80-100 [facility] Comment on above: Performed By: #### C BCA, 39145-7, 17665-1, CMP, 3084-1, HA1C, 82984-6, 95958-7, 5130-0, 64570-0, 82896-7, 35572-4 #### [facility] ([id number]) [address], [address] [place] [address] Monocytes (Bld) [#/Vol] 0.4 10*3/uL Normal 0-0.9 [facility] Comment on above: Performed By: #### C BCA, 60632-1, 47428-7, CMP, 3084-1, HA1C, 57753-8, 83450-3, 5130-0, 21685-3, 28369-1, 90436-7 #### [facility] ([id number]) [address], [address] [place] [address] Monocytes/100 WBC (Bld) 7.6 % Normal [facility] Comment on above: Performed By: #### C BCA, 48295-2, 89596-7, CMP, 3084-1, HA1C, 52686-4, 55036-4, 5130-0, 38476-1, 00965-5, #### [facility] ([id number]) [address], [address] [place] [address] Neutrophils/100 WBC (Bld) 64.0 % Normal [facility] Comment on above: Performed By: #### C GARRY, 13967-7, 31855-0, CMP, 3084-1, HA1C, 28819-0, 14779-5, 5130-0, 72793-1, 85247-0, #### [facility] ([id number]) [address], [address] [place] [address] Platelet mean volume (Bld) [Entitic vol] 8.8 fL Normal 7-12 [facility] Comment on above: Performed By: #### C GARRY, 63659-6, 46796-4, CMP, 3084-1, HA1C, 28913-6, 35537-0, 5130-0, 99887-1, 31711-6, #### [facility] ([id number]) [address], [address] [place] [address] Platelets (Bld) [#/Vol] 265 10*3/uL Normal 150-450 [facility] Comment on above: Performed By: #### C GARRY, 74023-9, 02463-5, CMP, 3084-1, HA1C, 80476-3, 23858-1, 5130-0, 28302-0, 63699-4, #### [facility] ([id number]) [address], [address] [place] [address] RBC COUNT 4.90 X10E12/L Normal 4.10-5.70 [facility] Comment on above: Performed By: #### C GARRY, 90680-5, 58569-6, CMP, 3084-1, HA1C, 12742-9, 67882-2, 5130-0, 96992-3, 68186-2, #### [facility] ([id number]) [address], [address] [place] [address] WBC (Bld) [#/Vol] 5.8 10*3/uL Normal 4.0-11.0 [facility] Comment on above: Performed By: #### C BCA, 81463-5, 14701-9, CMP, 3084-1, HA1C, 00445-8, 60146-6, 5130-0, 09908-8, 14234-3, 48921-4 #### [facility] ([id number]) [address], [address] [place] [address] CBC auto differentialon 12-02 Basophils (Bld) [#/Vol] 0.1 10*3/uL [facility] Basophils/100 WBC (Bld) 1.0 % [facility] Eosinophils (Bld) [#/Vol] 0.1 10*3/uL [facility] Eosinophils/100 WBC (Bld) 2.3 % [facility] Erythrocyte distribution width (RBC) [Ratio] 14.1 % 11.5 - 15.0 % [facility] Hematocrit (Bld) [Volume fraction] 46.5 % 39 - 49 % [facility] Hemoglobin (Bld) [Mass/Vol] 15.8 g/dL 13.0 - 17.0 g/dL [facility] Lymphocytes (Bld) [#/Vol] 1.5 10*3/uL [facility] Lymphocytes/100 WBC (Bld) 25.1 % [facility] MCH (RBC) [Entitic mass] 32.2 pg 27 - 34 pg [facility] MCHC (RBC) [Mass/Vol] 33.9 g/dL 32 - 3 6 g/dL [facility] MCV (RBC) [Entitic vol] 95 fL 80 - 100 fL [facility] Monocytes (Bld) [#/Vol] 0.4 10*3/uL [facility] Monocytes/100 WBC (Bld) 7.6 % [facility] Neutrophils (Bld) [#/Vol] 3.7 10*3/uL [facility] Neutrophils/100 WBC (Bld) 64.0 % [facility] Platelet mean volume (Bld) [Entitic vol] 8.8 fL 7 - 12 fL [facility] Platelets (Bld) [#/Vol] 265 10*3/uL [facility] RBC (Bld) [#/Vol] 4.90 10*6/uL [facility] WBC corrected for nucl RBC Auto (Bld) [#/Vol] 5.8 [facility] COMPREHENSIVE METABOLIC PANE Solomon 12-30-2023 Albumin [Mass/Vol] 4.3 g/dL Normal 3.2-5.3 [facility] Comment on above: Performed By: #### C BCA, 47320-5, 85471-4, CMP, 3084-1, HA1C, 40526-7, 94193-5, 5130-0, 41518-6, 14133-7, 51277-8 #### [facility] ([id number]) [address], [address] [place] [address] ALP [Catalytic activity/Vol] 73 U/L Normal 39-130 [facility] Comment on above: Performed By: #### C BCA, 41331-5, 99436-3, CMP, 3084-1, HA1C, 85130-6, 69728-9, 5130-0, 26352-0, 37490-4, 26812-7 #### [facility] ([id number]) [address], [address] [place] [address] ALT [Catalytic activity/Vol] 49 U/L High 0-40 [facility] Comment on above: Performed By: #### C BCA, 42587-1, 76290-8, CMP, 3084-1, HA1C, 95681-6, 38519-1, 5130-0, 83375-6, 31517-0, 84160-6 #### [facility] ([id number]) [address], [address] [place] [address] Anion gap [Moles/Vol] 11 mmol/L Normal 5-15 [facility] Comment on above: Performed By: #### C BCA, 70444-9, 86764-2, CMP, 3084-1, HA1C, 38417-5, 28080-3, 5130-0, 14794-0, 08948-9, 51290-0 #### [facility] ([id number]) [address], [address] [place] [address] AST [Catalytic activity/Vol] 38 U/L Normal 0-41 [facility] Comment on above: Performed By: #### C BCA, 87428-4, 99490-6, CMP, 3084-1, HA1C, 34728-8, 63620-8, 5130-0, 79455-5, 85510-8, 93134-9 #### [facility] ([id number]) [address], [address] [place] [address] Bilirubin [Mass/Vol] 0.7 mg/dL Normal 0.3-1.2 [facility] Comment on above: Performed By: #### C BCA, 26463-7, 75502-0, CMP, 3084-1, HA1C, 57676-4, 16761-1, 5130-0, 07673-9, 01865-2, 46744-1 #### [facility] ([id number]) [address], [address] [place] [address] Calcium [Mass/Vol] 9.2 mg/dL Normal 8.5-10.5 [facility] Comment on above: Performed By: #### C BCA, 20329-8, 41156-3, CMP, 3084-1, HA1C, 10292-9, 04282-4, 5130-0, 98227-0, 36997-8, 87837-2 #### [facility] ([id number]) [address], [address] [place] [address] Chloride [Moles/Vol] 102 mmol/L Normal 98-109 [facility] Comment on above: Performed By: #### C BCA, 45484-0, 74893-6, CMP, 3084-1, HA1C, 96596-1, 44323-5, 5130-0, 49565-5, 79090-4, 29159-5 #### [facility] ([id number]) [address], [address] [place] [address] CO2 [Moles/Vol] 26 mmol/L Normal 22-32 [facility] Comment on above: Performed By: #### C BCA, 03520-0, 08888-6, CMP, 3084-1, HA1C, 72080-3, 02768-8, 5130-0, 29980-9, 92514-3, 73874-9 #### [facility] ([id number]) [address], [address] [place] [address] Creatinine [Mass/Vol] 0.91 mg/dL Normal 0.60-1.30 [facility] Comment on above: Result Comment: METH OD TRACEABLE TO IDMS STANDARD Performed By: #### C BCA, 58425-9, 05222-6, CMP, 3084-1, HA1C, 30770-4, 94277-6, 5130-0, 55719-4, 33337-8, 70153-9 #### [facility] ([id number]) [address], [address] [place] [address] eGFR (CKD-EPI) NON-RACE DEPENDENT >90 Normal >59 [facility] Comment on above: Result Comment: Reported eGFR is based on the CKD-EPI 2020 equation that does not use a race coefficient. Performed By: #### C BCA, 71537-2, 45280-0, CMP, 3084-1, HA1C, 58344-9, 35863-7, 5130-0, 89578-0, 44104-9, 86808-4 #### [facility] ([id number]) [address], [address] [place] [address] Glucose [Mass/Vol] 93 mg/dL Normal 65-99 [facility] Comment on above: Performed By: #### C BCA, 85513-1, 86953-5, CMP, 3084-1, HA1C, 74688-2, 68762-3, 5130-0, 01430-6, 71454-2, 35894-4 #### [facility] ([id number]) [address], [address] [place] [address] Potassium [Moles/Vol] 4.0 mmol/L Normal 3.5-5.0 [facility] Comment on above: Performed By: #### C BCA, 18567-2, 87943-7, CMP, 3084-1, HA1C, 17792-0, 17767-2, 5130-0, 19683-2, 86198-0, 02891-1 #### [facility] ([id number]) [address], [address] [place] [address] Protein [Mass/Vol] 7.8 g/dL Normal 6.0-8.0 [facility] Comment on above: Performed By: #### C BCA, 56899-6, 09046-6, CMP, 3084-1, HA1C, 70055-0, 12002-1, 5130-0, 98258-7, 81386-8, 22431-2 #### [facility] ([id number]) [address], [address] [place] [address] Sodium [Moles/Vol] 139 mmol/L Normal 134-146 [facility] Comment on above: Performed By: #### C BCA, 00476-2, 73972-0, CMP, 3084-1, HA1C, 69167-9, 66214-3, 5130-0, 84610-1, 75470-8, 86474-1 #### [facility] ([id number]) [address] [place] [address], [address] [place] [address] Urea nitrogen [Mass/Vol] 11 mg/dL Normal 5-23 [facility] Comment on above: Performed By: #### C BCA, 89401-0, 66161-7, CMP, 3084-1, HA1C, 79424-2, 65288-7, 5130-0, 27162-7, 86216-2, 53371-7 #### [facility] ([id number]) [address] [place] [address], [address] [place] [address] Chromatin Ab Qlon 12-30-2023 CHROMATIN AB IGG <0.2 Normal <1.0 [facility] Comment on above: Performed By: #### C BCA, 56280-3, 45111-4, CMP, 3084-1, HA1C, 18311-0, 17457-9, 5130-0, 85439-6, 65565-1, 38715-5 #### [facility] ([id number]) [address] [place] [address], [facility] [address] [place] [address] Comprehensive metabolic pane solomon 12-30-2023 Albumin [Mass/Vol] 4.3 g/dL 3.2 - 5.3 g/dL [facility] ALP [Catalytic activity/Vol] 73 U/L 39 - 130 U/L [facility] ALT No additional P-5'-P [Catalytic activity/Vol] 49 U/L High 0 - 40 U/L [facility] Anion gap [Moles/Vol] 11 mmol/L 5 - 15 mmol/L [facility] AST [Catalytic activity/Vol] 38 U/L 0 - 41 U/L [facility] Bilirubin [Mass/Vol] 0.7 mg/dL 0.3 - 1 .2 mg/dL [facility] Calcium [Mass/Vol] 9.2 mg/dL 8.5 - 10. 5 mg/dL [facility] Chloride [Moles/Vol] 102 mmol/L 98 - 10 9 mmol/L [facility] CO2 [Moles/Vol] 26 mmol/L 22 - 32 mmol/L [facility] Creatinine [Mass/Vol] 0.91 mg/dL 0.60 - 1.30 mg/dL [facility] Comment on above: METHOD TRACEABLE TO [facility] STANDARD eGFR (CKD-EPI)non-race dependent - PINF [facility] Comment on above: Reported eGFR is based on the CKD-EPI 2020 equation that does not use a race coefficient. Glucose [Mass/Vol] 93 mg/dL 65 - 99 mg/dL [facility] Interpretation and review of laboratory results Abnormal [facility] Potassium [Moles/Vol] 4.0 mmol/L 3.5 - 5.0 mmol/L [facility] Protein [Mass/Vol] 7.8 g/dL 6.0 - 8.0 g/dL [facility] Sodium [Moles/Vol] 139 mmol/L 134 - 146 mmol/L [facility] Urea nitrogen [Mass/Vol] 11 mg/dL 5 - 23 mg/dL [facility] DNA double strand Ab Qn (S)o n 12-30-2023 DOUBLE STRANDED DNA 1 IU/ML Normal <5 [facility] Comment on above: Result Comment: Interpretation-------- <5 Negative 5-9 Indeterminate >9 Positive Performed By: #### C BCA, 67367-4, 79186-8, CMP, 3084-1, HA1C, 44844-8, 43184-3, 5130-0, 19244-3, 00308-7, 95953-2 #### [facility] ([id number]) [address], [address] [place] [address] ESR Photometric method (Bld) [Velocity]on 12-30-2023 Interpretation and review of laboratory results Abnormal [facility] ESR, ERYTHROCYTE SEDIMENTATION RATE 32 mm/h High 0-20 [facility] Comment on above: Performed By: #### C BCA, 56838-4, 53960-9, CMP, 3084-1, HA1C, 44993-5, 77193-2, 5130-0, 30821-7, 30508-8, 73989-4 #### [facility] ([id number]) [address], [address] [address] Erythrocyte Sedimentation Ra te (ESR)on 12-30-2023 ESR Photometric method (Bld) [Velocity] 32 mm/h High 0 - 20 mm/h [facility] HGB A1C (GLYCO-HGB)on 2023 Glucose [Mass/Vol] 114 mg/dL Normal [facility] Comment on above: Performed By: #### C BCA, 75803-0, 85893-7, CMP, 3084-1, HA1C, 78251-3, 25989-2, 5130-0, 03135-3, 63842-2, 43388-7 #### [facility] ([id number]) [address] [facility], [address] [address] HbA1c (Bld) [Mass fraction] 5.6 % Normal 4.4-5.6 [facility] Comment on above: Result Comment: NOTE ADA Guidelines Result HgbA1c Normal : less than 5.7 % Prediabetes : 5.7 % to 6.4 % Diabetes : > 6.4 % Use with caution in patients with abnormal hemoglobin variants as the half-life of red blood cells and in vivo glycation rates are affected. Performed By: #### C BCA, 99348-5, 81517-1, CMP, 3084-1, HA1C, 96096-1, 36906-2, 5130-0, 77527-6, 62440-3, 41375-3 #### [facility] ([id number]) [address], [facility] [address] [place] [address] No Panel Informationon 12-29 [facility] Nuclear Ab IA Ql (S)on 12-29 CATHY Screen w/reflex Positive Abnormal NEG [facility] Comment on above: Result Comment: Testing performed using multiplex flow immunoassay. Eleven different antigens associated with systemic autoimmune diseases (dsDNA,Sm,Sm/BOLOGNA MAKER,BOLOGNA MAKER,Chromatin, SSA,SSB,Claritza-1,Scl70,Ribo P,Centromere B) are included in this screening test. Performed By: #### C BCA, 56746-7, 70858-9, CMP, 3084-1, HA1C, 03552-5, 83232-3, 5130-0, 58226-5, 69040-6, 95269-9 #### [facility] ([id number]) [address], [address] [place] [address] Rheumatoid factoron 12-30-19 Rheumatoid factor Nephelometry Qn (S) NINF [facility] Rheumatoid factor Nephelomet ry Qn (S)on 12-30-2023 [facility] RHEUMATOID FACTOR <10 Normal <20 [facility] Comment on above: Performed By: #### C BCA, 76375-3, 89339-1, CMP, 3084-1, HA1C, 10633-4, 92720-1, 5130-0, 49141-1, 91975-1, 36261-8 #### [facility] ([id number]) [address], [address] [place] [address] Ribonucleoprotein extractabl e nuclear IgG Qn (S)on 12-30-2023 BOLOGNA MAKER ANTIBODY IGG 1.8 AI High <1.0 [facility] Comment on above: Performed By: #### C BCA, 74306-5, 23413-7, CMP, 3084-1, HA1C, 11549-4, 03034-7, 5130-0, 45588-3, 57698-7, 57810-6 #### [facility] ([id number]) [address], [address] [place] [address] Nunez extractable nuclear Ab +Ribonucleoprotein extractable nuclear IgG Qn (S)on 12-30-2023 NUNEZ/BOLOGNA MAKER AB IGG <0.2 Normal <1.0 [facility] Comment on above: Performed By: #### C BCA, 65383-8, 87774-5, CMP, 3084-1, HA1C, 68670-5, 31696-4, 5130-0, 04024-8, 39862-0, 98360-9 #### [facility] ([id number]) [address], [address] [place] [address] Nunez extractable nuclear Ig G Qn (S)on 12-30-2023 ANTI-NUNEZ AB IGG <0.2 Normal <1.0 [facility] Comment on above: Performed By: #### C BCA, 49104-2, 49359-4, CMP, 3084-1, HA1C, 01056-0, 04507-0, 5130-0, 07665-6, 39651-6, 01883-4 #### [facility] ([id number]) [address], [address] [place] [address] URIC ACIDon 12-30-2023 Urate [Mass/Vol] 6.8 mg/dL Normal 2.6-7.2 [facility] Comment on above: Performed By: #### C BCA, 38730-7, 43346-7, CMP, 3084-1, HA1C, 13191-3, 78500-1, 5130-0, 72254-0, 99791-7, 28998-4 #### [facility] ([id number]) [address], [address] [place] [address] Uric acidon 12-30-2023 Urate [Mass/Vol] 6.8 mg/dL 2.6 - 7.2 mg/dL [facility] Vital Signs Date Time Vital Sign Value Performing Clinician Alejo forde 11-16-2024 11:02-0400 Body height 182.9 cm Angela WINTER Work Phone: [facility] 11-16-2024 11:02-0400 Body mass index (BMI) [Ratio] 48.01 kg/m2 Angela WINTER Work Phone: [facility] 11-16-2024 11:02-0400 Body weight 160.57 kg Angela Estevez PA Work Phone: [facility] 11-16-2024 11:02-0400 Diastolic blood pressure 82 mm[Hg] Angela Estevez PA Work Phone: [facility] 11-16-2024 11:02-0400 Heart rate 78 /min Angela Estevez PA Work Phone: [facility] 11-16-2024 11:02-0400 Respiratory rate 16 /min Angela Estevez PA Work Phone: [facility] 11-16-2024 11:02-0400 SaO2% (BldA) [Mass fraction] 96 % Angela Estevez PA Work Phone: [facility] 11-16-2024 11:02-0400 Systolic blood pressure 130 mm[Hg] Angela Estevez PA Work Phone: [facility] 10-19-2024 10:53-0400 Body height 182.9 cm Rosa Isela Haskins TELEPHONE APPOINTMENT CLERK-FAN MAIL CLERK Work Phone: [facility] 10-19-2024 10:53-0400 Body mass index (BMI) [Ratio] 47.14 kg/m2 Rosa Isela Haskins TELEPHONE APPOINTMENT CLERK-FAN MAIL CLERK Work Phone: [facility] [employer] [facility] 10-19-2024 10:53-0400 Body temperature 98.49 [degF] Rosa Isela Haskins TELEPHONE APPOINTMENT CLERK-FAN MAIL CLERK Work Phone: [facility] [employer] [facility] 10-19-2024 10:53-0400 Body weight 157.67 kg Rosa Isela Haskins TELEPHONE APPOINTMENT CLERK-FAN MAIL CLERK Work Phone: [facility] 10-19-2024 10:53-0400 Diastolic blood pressure 70 mm[Hg] Rosa Isela Haskins TELEPHONE APPOINTMENT CLERK-FAN MAIL CLERK Work Phone: [facility] [employer] [facility] 10-19-2024 10:53-0400 Heart rate 77 /min Rosa Isela Haskins TELEPHONE APPOINTMENT CLERK-FAN MAIL CLERK Work Phone: [facility] 10-19-2024 10:53-0400 Respiratory rate 18 /min Rosa Isela Haskins APRN-FAN MAIL CLERK Work Phone: [facility] 10-19-2024 10:53-0400 SaO2% (BldA) [Mass fraction] 98 % Rosa Isela Haskins APRN-FAN MAIL CLERK Work Phone: [facility] 10-19-2024 10:53-0400 Systolic blood pressure 100 mm[Hg] Rosa Isela Haskins APRN-FAN MAIL CLERK Work Phone: [facility] 07-20-2024 11:34-0500 Body height 182.9 cm Pa WINTER Work Phone: [facility] 07-20-2024 11:34-0500 Body mass index (BMI) [Ratio] 44.08 kg/m2 Pa WINTER Work Phone: [facility] 07-20-2024 11:34-0500 Body weight 147.42 kg Pa Mathews PA Work Phone: [facility] 07-06-2024 08:38-0500 Body mass index (BMI) [Ratio] 47.33 kg/m2 Lisbeth Grimes BULL DRIVER Work Phone: [facility] 07-06-2024 08:38-0500 Body weight 158.31 kg Lisbeth Grimes BULL DRIVER Work Phone: [facility] 07-06-2024 08:38-0500 Diastolic blood pressure 88 mm[Hg] Lisbeth Grimes BULL DRIVER Work Phone: [facility] 07-06-2024 08:38-0500 Heart rate 88 /min Lisbeth Grimes BULL DRIVER Work Phone: [facility] 07-06-2024 08:38-0500 SaO2% (BldA) [Mass fraction] 94 % Lisbeth Grimes BULL DRIVER Work Phone: [facility] 07-06-2024 08:38-0500 Systolic blood pressure 142 mm[Hg] Lisbeth Grimes BULL DRIVER Work Phone: [facility] 06-09-2024 10:50-0500 Body height 182.9 cm Christopher Hermelindo DO Work Phone: [facility] 06-09-2024 10:50-0500 Body mass index (BMI) [Ratio] 46.52 kg/m2 Christopher Hermelindo DO Work Phone: [facility] 06-09-2024 10:50-0500 Body weight 155.58 kg Christopher Hermelindo DO Work Phone: [facility] 06-09-2024 10:50-0500 Diastolic blood pressure 83 mm[Hg] Christopher Hermelindo DO Work Phone: [facility] 06-09-2024 10:50-0500 Heart rate 73 /min Christopher Hermelindo DO Work Phone: [facility] 06-09-2024 10:50-0500 SaO2% (BldA) [Mass fraction] 94 % Christopher Hermelindo DO Work Phone: [facility] 06-09-2024 10:50-0500 Systolic blood pressure 131 mm[Hg] Christopher Hermelindo DO Work Phone: [facility] 05-10-2024 12:53-0400 Body height 182.9 cm Rosa Isela Haskins TELEPHONE APPOINTMENT CLERK-FAN MAIL CLERK Work Phone: [facility] 05-10-2024 12:53-0400 Body mass index (BMI) [Ratio] 45.79 kg/m2 Rosa Isela Haskins TELEPHONE APPOINTMENT CLERK-FAN MAIL CLERK Work Phone: [facility] 05-10-2024 12:53-0400 Body temperature 98.71 [degF] Rosa Isela Haskins TELEPHONE APPOINTMENT CLERK-FAN MAIL CLERK Work Phone: [facility] 05-10-2024 12:53-0400 Body weight 153.13 kg Rosa Isela Haskins TELEPHONE APPOINTMENT CLERK-FAN MAIL CLERK Work Phone: [facility] 05-10-2024 12:53-0400 Diastolic blood pressure 60 mm[Hg] Rosa Isela Haskins APRN-FAN MAIL CLERK Work Phone: [facility] 05-10-2024 12:53-0400 Heart rate 74 /min Rosa Isela Haskins APRN-FAN MAIL CLERK Work Phone: [facility] 05-10-2024 12:53-0400 Respiratory rate 18 /min Rosa Isela Haskins APRN-FAN MAIL CLERK Work Phone: [facility] 05-10-2024 12:53-0400 SaO2% (BldA) [Mass fraction] 96 % Rosa Isela Haskins APRN-FAN MAIL CLERK Work Phone: [facility] 05-10-2024 12:53-0400 Systolic blood pressure 124 mm[Hg] Rosa Isela Haskins APRN-FAN MAIL CLERK Work Phone: [facility] 02-01-2024 16:06-0400 Body height 182.9 cm Rosa Isela Haskins APRN-FAN MAIL CLERK Work Phone: [facility] 02-01-2024 16:06-0400 Body mass index (BMI) [Ratio] 45.87 kg/m2 Rosa Isela Haskins APRN-FAN MAIL CLERK Work Phone: [facility] 02-01-2024 16:06-0400 Body temperature 98.2 [degF] Rosa Isela Haskins APRN-FAN MAIL CLERK Work Phone: [facility] 02-01-2024 16:06-0400 Body weight 153.41 kg Rosa Isela Haskins APRN-FAN MAIL CLERK Work Phone: [facility] 02-01-2024 16:06-0400 Diastolic blood pressure 70 mm[Hg] Rosa Isela Haskins TELEPHONE APPOINTMENT CLERK-FAN MAIL CLERK Work Phone: [facility] 02-01-2024 16:06-0400 Heart rate 72 /min Rosa Isela Haskins APRN-FAN MAIL CLERK Work Phone: [facility] 02-01-2024 16:06-0400 Respiratory rate 18 /min Rosa Isela Haskins TELEPHONE APPOINTMENT CLERK-FAN MAIL CLERK Work Phone: [facility] [employer] [facility] 02-01-2024 16:06-0400 SaO2% (BldA) [Mass fraction] 98 % Rosa Isela Haskins APRN-FAN MAIL CLERK Work Phone: [facility] [employer] [facility] 02-01-2024 16:06-0400 Systolic blood pressure 120 mm[Hg] Rosa Isela Haskins TELEPHONE APPOINTMENT CLERK-FAN MAIL CLERK Work Phone: [facility] 12-30-2023 13:57-0400 Body height 177.8 cm Rosa Isela Haskins APRN-FAN MAIL CLERK Work Phone: [facility] 12-30-2023 13:57-0400 Body mass index (BMI) [Ratio] 48.24 kg/m2 Rosa Isela Haskins APRN-FAN MAIL CLERK Work Phone: [facility] 12-30-2023 13:57-0400 Body weight 152.5 kg Rosa Isela Haskins APRN-FAN MAIL CLERK Work Phone: [facility] 12-30-2023 13:57-0400 Diastolic blood pressure 72 mm[Hg] Rosa Isela Haskins APRN-FAN MAIL CLERK Work Phone: [facility] 12-30-2023 13:57-0400 Heart rate 83 /min Rosa Isela Haskins APRN-FAN MAIL CLERK Work Phone: [facility] 12-30-2023 13:57-0400 Respiratory rate 20 /min Rosa Isela Haskins APRN-FAN MAIL CLERK Work Phone: [facility] 12-30-2023 13:57-0400 SaO2% (BldA) [Mass fraction] 95 % Rosa Isela Haskins APRN-FAN MAIL CLERK Work Phone: [facility] 12-30-2023 13:57-0400 Systolic blood pressure 136 mm[Hg] Rosa Isela Haskins TELEPHONE APPOINTMENT CLERK-FAN MAIL CLERK Work Phone: [facility] Encounters Encounter Date Encounter Type Care Provider Facility Start: 01-02-2025 End: 01-02-2025 ambulatory Frank Bah MD Facility: [place] Start: 12-12-2024 End: 12-12-2024 ambulatory Frank Bah [...] End: 11-14-2024 ambulatory Frank Bah MD Facility: [place] Start: 11-03-2024 End: 11-03-2024 ambulatory [facility] Start: 10-19-2024 End: 10-19-2024 Office outpatient visit 15 minutes [facility] TELEPHONE APPOINTMENT CLERK-FAN MAIL CLERK Work Phone: [facility] Comment on above: Enlarged lymph node in neck (Primary Dx); Ganglion cyst of tendon sheath of left hand Start: 10-19-2024 End: 10-19-2024 ambulatory [facility] Start: 10-04-2024 End: 10-04-2024 Bamboo flowsheet Lisbeth Grimes BULL DRIVER Work Phone: [facility] Start: 10-04-2024 End: 10-04-2024 Bamboo flowsheet Lisbeth Grimes BULL DRIVER Work Phone: [facility] Start: 10-04-2024 End: 10-04-2024 ambulatory LISBETH GRIMES Not Available Start: 09-23-2024 End: 09-23-2024 ambulatory LISBETH GRIMES [facility] Start: 08-18-2024 End: 08-18-2024 Bamboo flowsheet Ludy J Carline PT Work Phone: [facility] Start: 08-18-2024 End: 08-18-2024 Bamboo flowsheet Ludy J Carline PT Work Phone: [facility] Start: 08-18-2024 End: 08-18-2024 ambulatory Ludy Alvares Carline PT Work Phone: [facility] Comment on above: Neck pain (Primary D x); Chronic midline low back pain without sciatica; Multiple joint pain; Paresthesia Start: 08-16-2024 End: 08-16-2024 Bamboo flowsheet Nandini Cox DIRECTORY CLERK [facility] Start: 08-16-2024 End: 08-16-2024 Bamboo flowsheet Nandini Montaneztersall DIRECTORY CLERK [facility] Start: 08-16-2024 End: 08-16-2024 ambulatory Nandini Cox DIRECTORY CLERK [facility] Comment on above: Neck pain (Primary D x); Chronic midline low back pain without sciatica; Multiple joint pain; Paresthesia Start: 08-11-2024 End: 08-11-2024 ambulatory Danni Luna DIRECTORY CLERK Work Phone: [facility] Comment on above: Neck pain (Primary D x); Chronic midline low back pain without sciatica; Multiple joint pain; Paresthesia Start: 08-08-2024 End: 08-18-2024 Telephone encounter Lisbeth Grimes BULL DRIVER Work Phone: [facility] Start: 08-02-2024 End: 08-02-2024 Bamboo flowsheet Ludy J Carline PT Work Phone: [facility] Start: 08-02-2024 End: 08-02-2024 Bamboo flowsheet Ludy J Carline PT Work Phone: [facility] Start: 08-02-2024 End: 08-02-2024 ambulatory Ludy Crowley PT Work Phone: [facility] [...] Start: 07-21-2024 End: 07-21-2024 ambulatory Nandini Cox DIRECTORY CLERK [facility] Comment on above: Neck pain (Primary D x); Chronic midline low back pain without sciatica; Multiple joint pain; Paresthesia Start: 07-20-2024 End: 07-20-2024 Bamboo flowsheet Pa WINTER Work Phone: [facility] Start: 07-20-2024 End: 07-20-2024 Bamboo flowsheet Pa WINTER Work Phone: [facility] Start: 07-20-2024 End: 07-20-2024 Office outpatient new 45 minutes Pa WINTER Work Phone: [facility] Comment on above: Paresthesia of hand, bilateral (Primary Dx); Polyarthralgia; Neck pain Start: 07-20-2024 End: 07-20-2024 ambulatory PA MATHEWS Not Available Start: 07-14-2024 End: 07-14-2024 Telephone encounter Ludy Dia Crowley PT Work Phone: [facility] Start: 07-12-2024 End: 07-12-2024 Bamboo flowsheet Nandini Tattersall DIRECTORY CLERK [facility] Start: 07-12-2024 End: 07-12-2024 Bamboo flowsheet Nandini Tattersall DIRECTORY CLERK [facility] Start: 07-12-2024 End: 07-12-2024 ambulatory Nandini Tattersall DIRECTORY CLERK [facility] Comment on above: Neck pain (Primary D x); Chronic midline low back pain without sciatica; Multiple joint pain; Paresthesia Start: 07-07-2024 End: 07-07-2024 Bamboo flowsheet Nandini Tattersall DIRECTORY CLERK [facility] Start: 07-07-2024 End: 07-07-2024 Bamboo flowsheet Nandini Tattersall DIRECTORY CLERK [facility] Start: 07-07-2024 End: 07-07-2024 ambulatory Nandini Tattersall DIRECTORY CLERK [facility] Comment on above: Neck pain (Primary D x); Chronic midline low back pain without sciatica; Multiple joint pain; Paresthesia Start: 07-06-2024 End: 07-06-2024 Office outpatient visit 25 minutes Lisbeth Grimes BULL DRIVER [facility] Comment on above: Neck pain (Primary D x); Paresthesias; Bilateral carpal tunnel syndrome; Ulnar neuropathy of both upper extremities Start: 07-06-2024 End: 07-06-2024 ambulatory LISBETH GRIMES Not Available Start: 07-05-2024 End: 07-05-2024 Bamboo flowsheet Aniceto Casarez DO Work Phone: [employer] [address] Start: 07-05-2024 End: 07-05-2024 Bamboo flowsheet Aniceto Casarez DO Work Phone: [facility] [place] [address] Start: 07-05-2024 End: 07-05-2024 Patient encounter procedure Aniceto Casarez DO Work Phone: [facility] [place] [facility] Comment on above: Ulnar neuropathy of both upper extremities (Primary Dx) Start: 07-05-2024 End: 07-05-2024 ambulatory ANICETO CASAREZ Not Available Start: 06-23-2024 End: 06-23-2024 Bamboo flowsheet Nandini Cox DIRECTORY CLERK [facility] Start: 06-23-2024 End: 06-23-2024 Bamboo flowsheet Nandini Cox DIRECTORY CLERK [facility] Start: 06-23-2024 End: 06-23-2024 ambulatory Nandini Cox DIRECTORY CLERK [facility] Comment on above: Neck pain (Primary D x); Chronic midline low back pain without sciatica; Multiple joint pain; Paresthesia Start: 06-20-2024 End: 06-20-2024 Bamboo flowsheet Ludy J Carline PT Work Phone: [facility] Start: 06-20-2024 End: 06-20-2024 Bamboo flowsheet Ludy J Carline PT Work Phone: [facility] Start: 06-20-2024 End: 06-20-2024 ambulatory Uldy Dia Carline PT Work Phone: [facility] Comment on above: Neck pain (Primary D x); Chronic midline low back pain without sciatica; Multiple joint pain; Paresthesia Start: 06-09-2024 End: 06-09-2024 Bamboo flowsheet Aniceto Casarez DO Work Phone: [facility] [place] [address] Start: 06-09-2024 End: 06-09-2024 Bamboo flowsheet Aniceto Casarez DO Work Phone: [facility] [place] [facility] Start: 06-09-2024 End: 06-09-2024 Office outpatient new 45 minutes Aniceto Casarez DO Work Phone: [facility] [place] [facility] Comment on above: Paresthesia (Primary Dx) Start: 06-09-2024 End: 06-09-2024 ambulatory ANICETO CASAREZ Not Available Start: 05-10-2024 End: 05-10-2024 Office outpatient visit 15 minutes Rosa Isela Haskins APRN-FAN MAIL CLERK Work Phone: [facility] Comment on above: Chronic pain syndrom e (Primary Dx); Pain in joints Start: 05-10-2024 End: 05-10-2024 ambulatory [facility] Start: 03-17-2024 End: 03-17-2024 Patient encounter procedure MD Pa San Work Phone: [facility] [address] Work Phone: Start: 03-17-2024 End: 03-17-2024 ambulatory Pa San [facility] Work Phone: Start: 02-01-2024 End: 02-01-2024 ambulatory [facility] Start: 02-01-2024 Encounter for genera l adult medical examination without abnormal findings [facility] Start: 02-01-2024 End: 02-01-2024 Patient encounter procedure Rosa Iselarylie Haskins APRN-FAN MAIL CLERK Work Phone: [facility] Work Phone: Start: 02-01-2024 End: 02-01-2024 Periodic preventive med est patient 40-64yrs Rosa Isela Haskins APRN-FAN MAIL CLERK Work Phone: [facility] Comment on above: Annual physical exam (Primary Dx); Blood tests for routine general physical examination; Encounter for screening for malignant neoplasm of prostate; Special screening for malignant neoplasm of colon Start: 02-01-2024 End: 02-01-2024 Physical examination Rosa Isela Haskins APRN-FAN MAIL CLERK Work Phone: [facility] Start: 02-01-2024 End: 02-01-2024 ambulatory [facility] Start: 02-01-2024 Encounter for genera l adult medical examination without abnormal findings [facility] Start: 12-30-2023 End: 12-30-2023 ambulatory [facility] Start: 12-30-2023 End: 12-30-2023 Office outpatient new 45 minutes [facility] Work Phone: [facility] Comment on above: Positive CATHY (antinu clear antibody) (Primary Dx); Pain in other joint; Joint swelling; Screening for diabetes mellitus (DM) Start: 12-30-2023 End: 12-30-2023 ambulatory [facility] Procedures Date Procedure Procedure Detail Performing Clinician Start: 10-19-2024 Adult depression scr eening assessment [facility] Work Phone: Start: 07-21-2024 Sedimentation rate r bc automated Pa WINTER Work Phone: Start: 07-05-2024 End: 07-05-2024 Needle emg ea extremty w/paraspinl area complete Aniceto Casarez DO Work Phone: Start: 05-10-2024 [facility] Work [facility]: Start: 02-01-2024 Adult depression scr eening assessment [facility] Work Phone: Start: 12-30-2023 Adult depression scr eening assessment [facility] Work Phone: Plan of Treatment Date Care Activity Detail Author Start: 05-03-2027 Screening for malign ant neoplasm [facility] Start: 10-19-2025 Adult BMI Screening Adult BMI Screen ing [facility] Start: 10-19-2025 Depression Screening Depression Scre ening [facility] Start: 10-19-2025 Tobacco Screening Tobacco Screening [facility] Start: 05-10-2025 Adult BMI Follow Up Plan Adult BMI Follow Up Plan [facility] Start: 05-10-2025 Adult BMI Screening Adult BMI Screen ing [facility] Start: 05-10-2025 Depression Screening Depression Scre ening [facility] Start: 05-10-2025 Tobacco Screening Tobacco Screening [facility] Start: 04-03-2025 Influenza vaccination Influenz a Vaccine (Season Ended) [facility] Start: 01-31-2025 Adult BMI Follow Up Plan Adult BMI Follow Up Plan [facility] Start: 01-31-2025 Adult BMI Screening Adult BMI Screen ing [facility] Start: 01-31-2025 Depression Screening Depression Scre ening [facility] Start: 01-31-2025 Tobacco Screening Tobacco Screening [facility] Start: 01-11-2025 End: 01-11-2025 Patient encounter procedure 01/11/2025 11:00 AM EDT Office Visit [facility] [address] [place] [address] Angela Estevez PA [address] [place] [address] [facility] Start: 12-29-2024 Adult BMI Follow Up Plan Adult BMI Follow Up Plan [facility] Start: 12-29-2024 Adult BMI Screening Adult BMI Screen ing [facility] Start: 12-29-2024 Depression Screening Depression Scre ening [facility] Start: 12-29-2024 Tobacco Screening Tobacco Screening [facility] Start: 11-16-2024 End: 11-16-2024 Patient encounter procedure 11/16/2024 11:00 AM EDT Office Visit [facility]ATHY [facility] [address] [place] [address] Angela Estevez PA [address] [place] [address] Arrived [facility] Comment on above: Arrived Start: 11-03-2024 End: 11-03-2024 Patient encounter procedure 11/03/2024 9:45 AM EDT Appointment [facility] [address] [place] [phone] [facility] Start: 10-19-2024 End: 10-19-2025 CT Neck WO contrast CT neck soft tissue without contrast Imaging Routine Enlarged lymph node in neck Expected: 10/19/2024, Expires: 10/19/2025 [facility] Work Phone: Comment on above: Expected: 10/19/2024 , Expires: 10/19/2025 Start: 10-04-2024 End: 10-04-2024 Patient encounter procedure 10/04/2024 1:40 PM EST Office Visit [facility] [address] [facility] [place] [phone] Lisbeth Grimes NP [address] [facility] [place] [address] Arrived [facility] Comment on above: Arrived Start: 09-13-2024 End: 09-13-2024 Patient encounter procedure 09/13/2024 11:20 AM EST [facility] [address] [place] [phone] Rosa Isela Haskins, TELEPHONE APPOINTMENT CLERK-FAN MAIL CLERK [address] [place] [phone] [facility] Start: 09-06-2024 End: 09-06-2024 Patient encounter procedure 09/06/2024 8:20 AM EST Office Visit [facility]UST[facility] [address] [facility] [place] [address] Lisbeth Grimes NP [address] [facility] [place] [phone] [facility] [place] Start: 08-18-2024 End: 08-18-2024 ambulatory 08/18/2024 10:00 AM EST Treatment [facility] [address] [place] [phone] Ludy Crowley, PT [address] [facility] [place] [address] [facility] Start: 08-16-2024 End: 08-16-2024 ambulatory [facility] Comment on above: Arrived Start: 08-11-2024 End: 08-11-2024 ambulatory 08/11/2024 10:00 AM EST Treatment [facility] [address] [place] [phone] Danni Luna, DIRECTORY CLERK [address] [place] [address] [facility] Start: 08-10-2024 End: 08-10-2024 Patient encounter procedure 08/10/2024 11:00 AM EST Office Visit [facility] [address] [place] [phone] Pa Mathews PA [address] [address] [facility] Start: 08-09-2024 End: 08-09-2024 Patient encounter procedure 08/09/2024 9:40 AM EST Office Visit [facility] [place] [address] [place] [address] Kane LisbethAIDAN [address] [place] [phone] [facility] [place] [address] Start: 08-08-2024 End: 08-08-2024 ambulatory 08/08/2024 9:00 AM EST Treatment [facility] [address] [place] [phone] Danni Luna, DIRECTORY CLERK [address] [place] [address] [facility] Start: 08-05-2024 End: 08-05-2024 ambulatory 08/05/2024 8:30 AM EST Treatment [facility] [address] [place] [phone] Ludy Crowley, PT [address] [place] [address] [facility] Start: 08-02-2024 End: 08-02-2024 ambulatory 08/02/2024 8:30 AM EST Treatment [facility] [address] [place] [address] Ludy Crowley, PT [address] [place] [address] Arrived [facility] Comment on above: Arrived Start: 07-28-2024 End: 07-28-2024 ambulatory [facility] Start: 07-25-2024 End: 07-25-2024 ambulatory [facility] Comment on above: Arrived Start: 07-21-2024 End: 07-21-2024 ambulatory 07/21/2024 9:30 AM EST Treatment [facility] [address] [place] [address] Nandini Cox, GILBERTO [facility] Start: 07-20-2024 End: 07-20-2025 C reactive protein [Mass/volume] in Serum or Plasma C-reactive protein Lab Routine Polyarthralgia Expected: 07/20/2024 (Approximate), Expires: 07/20/2025 [facility] Comment on above: Expected: 07/20/2024 (Approximate), Expires: 07/20/2025 Start: 07-20-2024 End: 07-20-2025 Erythrocyte sedimentation rate Sedimentation rate, automated Lab Routine Polyarthralgia Expected: 07/20/2024 (Approximate), Expires: 07/20/2025 [facility] Comment on above: Expected: 07/20/2024 (Approximate), Expires: 07/20/2025 Start: 07-20-2024 End: 07-20-2025 LYME DISEASE ANTIBODY (IGG), IMMUNOBLOT LYME DISEASE ANTIBODY (IGG), IMMUNOBLOT Lab Routine Polyarthralgia Expected: 07/20/2024 (Approximate), Expires: 07/20/2025 [facility] Comment on above: Expected: 07/20/2024 (Approximate), [...] Treatment [facility] [address] [place] [phone] Ludy Crowley, PT [address] [place] [address] [facility] Start: 07-14-2024 End: 07-14-2024 ambulatory 07/14/2024 9:30 AM EST Treatment [facility] [address] [place] [address] Nandini Cox, GILBERTO [facility] Start: [...] 8:40 AM EST Office Visit [facility] [place] [facility] [address] [place] [address] Kane LisbethAIDAN [address] [place] [phone] [facility] [place] [address] Start: 07-05-2024 End: 07-05-2024 Patient encounter procedure [facility] Comment on above: Arrived Start: 07-04-2024 End: 07-04-2024 ambulatory 07/04/2024 9:00 AM EST Treatment [facility] [address] [place] [phone] Danni Luna, DIRECTORY CLERK [address] [place] [address] [facility] Start: 06-28-2024 End: 06-28-2024 ambulatory 06/28/2024 10:30 AM EST Treatment [facility] [address] [place] [phone] Danni Luna, DIRECTORY CLERK [address] [place] [address] [facility] Start: 06-23-2024 End: 06-23-2024 ambulatory 06/23/2024 8:30 AM EST Treatment [facility] [address] [place] [phone] Nandini Cox, DIRECTORY CLERK Neck pain (Primary Dx); Chronic midline low back pain without sciatica; Multiple joint pain; Paresthesia [facility] Comment on above: Neck pain (Primary D x); Chronic midline low back pain without sciatica; Multiple joint pain; Paresthesia Start: 06-16-2024 End: 06-16-2024 Patient encounter procedure 06/16/2024 11:00 AM EST Procedure Visit [facility] [place] [facility] [address] [place] [address] Aniceto Casarez, DO [address] [facility] [place] [address] JUSTICE B[facility] Start: 06-09-2024 End: 06-09-2025 EMG 2 Extremities EMG 2 Extremities Neurology Routine Paresthesia Expected: 06/09/2024, Expires: 06/09/2025 [facility] Work Phone: Comment on above: Expected: 06/09/2024 , Expires: 06/09/2025 Start: 06-09-2024 End: 06-09-2024 Patient encounter procedure 06/09/2024 11:00 AM EST Office Visit [facility] [address] [facility] [place] [address] Aniceto Casarez DO [address] [facility] [place] [address] [facility]rived [facility] Comment on above: Arrived Start: 04-03-2024 Influenza vaccination Influenza Vacc ine [facility] Start: 03-17-2024 Hemolytic complement CH50 level [facility] Start: 03-17-2024 Hepatitis B core antibody measurement [facility] Start: 03-17-2024 [facility] Start: 02-01-2024 End: 02-01-2024 Patient encounter procedure 02/01/2024 4:00 PM EDT [facility] [address] [place] [address] Rosa Isela Haskins, TELEPHONE APPOINTMENT CLERK-FAN MAIL CLERK [address] [place] [address] [facility] Start: 2016 Administration of varicella zoster vaccine Zoster (Shingles) Vaccine (1 of 2) [facility] Start: 2011 Screening for malign ant neoplasm of colon Colonoscopy [facility] Start: 1985 DTaP,Tdap and Td Vaccines (1 - Tdap) DTaP,Tdap and Td Vaccines (1 - Tdap) [facility] Start: 1966 Screening for malign ant neoplasm of colon [facility] Start: 1966 Tobacco Counseling Tobacco Counselin g [facility] Aldolase measurement [facility] End: 12-29-2024 CATHY Screen w/ Reflex CATHY Screen w/ Reflex Lab Routine Positive CATHY (antinuclear antibody) Pain in other joint 1 Occurrences starting 12/30/2023 until 12/29/2024 [employer] Work Phone: Comment on above: 1 Occurrences starti ng 12/30/2023 until 12/29/2024 Chromatin Ab [Units/volume] in Serum or Plasma [facility] Cologuard [facility] Cologuar d [facility] Lab Routine Special screening for malignant neoplasm of colon Ordered: 02/01/2024 [facility] Comment on above: Ordered: 02/01/2024 Complement C3 [Mass/volume] in Serum or Plasma [facility] Complement C4 [Mass/volume] in Serum or Plasma [facility] End: 12-30-2024 Hemoglobin A1c/Hemoglobin.total in Blood Hemoglobin A1c Lab Routine Screening for diabetes mellitus (DM) 1 Occurrences starting 12/30/2023 until 12/30/2024 [facility] Comment on above: 1 Occurrences starti ng 12/30/2023 until 12/30/2024 Hemoglobin A1c/Hemoglobin.total in Blood Hemoglobin A1c Lab Routine Screening for diabetes mellitus (DM) 12/30/2023 10:10 PM EDT [facility] Hepatitis B virus surface Ab [Presence] in Serum [facility] Hepatitis B virus surface Ag [Presence] in Serum or Plasma by Immunoassay [facility] Hepatitis C virus Ig G Ab [Presence] in Serum or Plasma by Immunoassay [facility] Homogenous nuclear A b pattern [Titer] in Serum [facility] End: 01-31-2025 Lipid panel Lipid panel Lab Routine Blood tests for routine general physical examination 1 Occurrences starting 02/01/2024 until 01/31/2025 [employer] Work Phone: Comment on above: 1 Occurrences starti ng 02/01/2024 until 01/31/2025 Lupus anticoagulant [Interpretation] in Platelet poor plasma [facility] Nuclear Ab [Presence ] in Serum by Immunoassay CATHY Screen w/ Reflex Lab Routine Positive CATHY (antinuclear antibody) Pain in other joint 12/30/2023 10:10 PM EDT [facility] Nuclear Ab [Titer] i n Serum [facility] End: 01-31-2025 Prostatic specific antigen screen Prostatic specific antigen screen Lab Routine Encounter for screening for malignant neoplasm of prostate 1 Occurrences starting 02/01/2024 until 01/31/2025 [facility] Comment on above: 1 Occurrences starti ng 02/01/2024 until 01/31/2025 Reagin Ab [Presence] in Serum by RPR [facility] Thrombin time [facility] Thyroglobulin Ab [Units/volume] in Serum or Plasma [facility] Thyroperoxidase Ab [Units/volume] in Serum or Plasma [facility] Payers Date Payer Category Payer Unknown 2024 Self-pay 2024 Unknown [id number] 2023 Medicaid [facility] [id number] 2023 Medicaid [id number]. [id number] 2023 Private Health Insurance [facility] MEDICAID [id number] 2023 Medicaid [id number] 1966 Unknown [id number] 2.16840.1.301978.3.579.2. 1285 1966 Unknown [id number] 2.16.840.1.559919.3.579.2. 128 1966 Unknown [id number] 2.16.840.1.998481.3.579.2. 1285 1966 Unknown [id number] 2.16840.1.580853.3.579.2. 1285 1966 Unknown [id number] 2.16840.1.423348.3.579.2. 1285 1966 Unknown [id number] 2.16840.1.728833.3.579.2. 1285 1966 Unknown [id number] 2.16.840.1.157672.3.579.2. 1285 1966 Unknown [id number] 2.16.840.1.311259.3.579.2. 1285 1966 Unknown [id number] 2.16840.1.977818.3.579.2. 128 1966 Unknown [id number] 2.16.840.1.102360.3.579.2. 128 1966 Unknown [id number] 2.16.840.1.126931.3.579.2. 9 1966 Unknown [id number] 2.16.840.1.323561.3.579.2. 9 1966 Unknown [id number] 2.16.840.1.641748.3.579.2. 1259 1966 Unknown [id number] 2.16.840.1.103571.3.579.2. 1258 1966 Unknown [id number] 2.16.840.1.241048.3.579.2. 1258 1966 Unknown [id number] 2.16.840.1.761743.3.579.2. 1258 1966 Unknown [id number] 2.16.840.1.056339.3.579.2. 1258 1966 Unknown [id number] 2.16.840.1.662816.3.579.2. 1258 1966 Unknown [id number] 2.16.840.1.423065.3.579.2. 1258 1966 Unknown [id number] 2.16.840.1.984719.3.579.2. 1258 1966 Unknown [id number] 2.16.840.1.901317.3.579.2. 1258 1966 Unknown [id number] 2.16.840.1.183689.3.579.2. 1258 1966 Unknown [id number] 2.16.840.1.791861.3.579.2. 1258 1966 Unknown [id number] 2.16.840.1.126676.3.579.2. 1258 1966 Unknown [id number] 2.16.840.1.917720.3.579.2. 1258 1966 Unknown [id number] 2.16.840.1.813315.3.579.2. 1258 1966 Unknown [id number] 2.16.840.1.605651.3.579.2. 1966 Unknown [id number] 2.16.840.1.533814.3.579.2. 1966 Unknown [id number] 2.16.840.1.830699.3.579.2. Unknown [id number] 2.16.840.1.702857.3.579.2. 531 Social History Date Type Detail Facility Tobacco smoking stat [facility] Unknown if ever smoked [facility] Work Phone: Start: 1965 Sex Assigned At Male [facility] consumption unknown [facility] Start: 1965 Sex assigned at Not on file [facility] Start: 07-06-2024 End: 11-16-2024 Gender identity Not on file [facility] Start: 07-06-2024 [facility] daily [facility] History of tobacco use [facility]igarette [facility]oker [facility] Start: 07-06-2024 End: 11-16-2024 Cigarettes smoked current (pack per day) - Reported 1 [facility] Start: 07-06-2024 End: 07-19-2024 Tobacco use and exposure User of smokeless tobacco [facility] History of tobacco use Snuff User [facility] Start: 07-06-2024 End: 11-16-2024 Alcoholic beverage intake Current drinker of alcohol (finding) [facility] Start: 12-30-2023 End: 07-19-2024 Tobacco smoking status UTIS Ex-smoker [facility] History of tobacco use Current smoker [facility] History of tobacco use Chews Tobacco [facility] Adolescent depressio n screening assessment [facility] Start: 12-30-2023 Alcohol Comment weekly [facility] Start: 03-08-2015 Sex Male (finding) [facility] Clinical Notes 12-30-2023 to 11-16-2024 MAGGY Gonzalez - 11/16/2024 11:00 AM Raf Haskins APRN-MATTHIEU - 10/19/2024 11:00 AM Micah Crowley, PT [...] bilateral Dislocation, shoulder 1991 Fracture of hand 2011 Numbness Positive CATHY [...] wrist extensors , wrist flexor , and manager practice strength 5/5. LUE strength deltoid , biceps , triceps , wrist extensors , wrist flexor , and manager practice strength 5/5. RLE strength iliopsoas, quadriceps, tibialis [...] of the cervical spine without contrast at [facility] on 09/26/2024: Multilevel degenerative changes [...] EMG of the bilateral upper extremities at [facility] on 07/05/2024: Bilateral [...] or worsening symptoms. documented in this encounter [facility] 10-19-2024 History of Presen t illness Narrative Images from the original note were not included. [address] [place] [phone] SUBJECTIVE: Patient ID: Son Dumas is a [...] Guzman 10/19/24 1251 [facility] History of Presen t illness Narrative [...] get MRI approved. documented in this encounter [facility] 08-15-2024 Telephone encounter Note Noted, thank you! [facility] Work Phone: 08-15-2024 Miscellaneous Notes Noted, thank you! Appeal request has been approved and denial has been overturned. I faxed the MRI Cervical Spine order to [facility] with updated approval information. Sending back to Lisbeth for FYI [facility] confirmed that the appeal request has been received and is pending/ open. Appeal ID# [id number] Appeal request with physical therapy notes [facility] Will continue to follow Hello! The patient has reportedly been in physical therapy since 06/20/2024, so he should have completed six weeks by now. Is [id number] still an option for his MRI cervical spine denial, or are we able to file an appeal for this? documented in this encounter [facility] 08-15-2024 Telephone encounter Note Appeal request has been approved and denial has been overturned. I faxed the MRI Cervical Spine order to [facility] with updated approval information. Sending back to Lisbeth for FYI [facility] 08-15-2024 Telephone encounter Note [facility] confirmed that the appeal request has been received and is pending/ open. Appeal ID# [id number] [facility] 08-09-2024 Telephone encounter Note Appeal request with physical therapy notes 1-7 have been faxed to [facility]. Will continue to follow [facility] 08-08-2024 Telephone encounter Note Hello! The patient has reportedly been in physical therapy since 06/20/2024, so he should have completed six weeks by now. Is [id number] still an option for his MRI cervical spine denial, or are we able to file an appeal for this? [facility] 08-02-2024 History of Presen t illness Narrative [...] Continue as able. documented in this encounter [facility] 07-25-2024 History of Presen t [...] Continue as able. documented in this encounter [facility] 07-20-2024 History of Presen t [...] is normal. 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 documented in this encounter [facility] 07-14-2024 Telephone encounter Note PT office notes needed faxed to [facility] -[phone] Ty [facility] 07-14-2024 Miscellaneous Notes PT office notes needed faxed to [facility] -[phone] Ty documented in this encounter [facility] 07-06-2024 History of Presen t [...] wrist extensors , wrist flexor , and manager practice strength 5/5. LUE strength deltoid , biceps , triceps , wrist extensors , wrist flexor , and manager practice strength 5/5. RLE strength iliopsoas, quadriceps, tibialis [...] reflex 2+. LLE Knee reflex 2+. Coordination: Xgbcrg-[id number] testing normal. Rapid alternating movements are normal. Gait: Normal. Review and summary of old records: EMG of the bilateral upper extremities at [facility] on 07/05/2024: Bilateral [...] this would be best managed by a auto painter helper Ulnar neuropathy of both upper extremities The [...] new or worsening symptoms. Lisbeth Grimes NP [facility] documented in this encounter [facility] 07-06-2024 Instructions Lisbeth Grimes NP - 07/06/2024 8:40 AM EST - MRI of the cervical spine ([facility]) - Referral to orthopedic surgery ([place]) - Referral to pain management ([facility]) documented in this encounter [facility] 07-05-2024 History of Presen t illness Narrative Images from the original note were not included. Reason for Appointment: EMG Patient: Son Dumas : 1965 EMG Computer: [employer] Referring Physician: Dr. Aniceto Casarez EMG: ALFREDO portable sawyer: Christiano KIRAN(R) Office Location: [place] Reason for EMG: c/o numbness/tingling in left hand, joint pain throughout body, neck pain. No hx of DM. Not on blood thinners. Comments: Procedure was explained to the patient who expressed understanding. Patient appeared to have tolerated the test well despite some discomfort due to the nature of the test. documented in this encounter [facility] 06-20-2024 History of Presen t [...] per both neck and back index's at [place] Short Term Goal #4: pt will be ind with HEP for maintenance at [place] and not feel the need for further Dx testing/intervention at [place] Pt will benefit from skilled PT to address the above impairments for 1-3x/week for 6 weeks pending pt needs/progress I hereby deem this POC medically necessary. Please sign below. Date: documented in this encounter [facility] 06-09-2024 History of Presen t [...] , wrist extensors , wrist flexor , manager practice strength 5/5. LUE Strength deltoid , biceps , triceps , wrist extensors , wrist flexor , manager practice strength 5/5. RLE Strength illopsoas, quadriceps, tibialis [...] reflex 2+ . Martin's sign negative. Coordination: Yxyjdl-th-ixyj testing and rapid alternating movements are normal [...] and return instructions documented in this encounter [facility] 05-10-2024 History of Presen t illness Narrative Images from the original note were not included. [address] [place] [address] SUBJECTIVE: Patient ID: Son Dumas is a [...] Guzman 05/10/24 1413 documented in this encounter [facility] [employer] [facility] 02-01-2024 History of Presen t illness Narrative Images from the original note were not included. [address] [facility] [address] SUBJECTIVE: Patient ID: Son Dumas is a [...] History: Diagnosis Date Back pain Hypertension Lupus ([facility]) Visual impairment There is no immunization history [...] Cologuard. Our office will reach out to [facility], resend referral. Labs drawn in office today ALL QUESTIONS ANSWERED Total time spent was 30 minutes: Preparing to see the patient (e.g., review of tests) Obtaining and/or reviewing separately obtained history Performing a medically appropriate examination and/or evaluation Counseling and educating the patient/family/caregiver Ordering medications, tests, or procedures Follow-up: Annual physical ANDRESSA Guzman 02/01/24 1654 documented in this encounter [facility] [employer] 12-30-2023 History of Presen t illness Narrative Images from the original note were not included. [address] [place] [address] SUBJECTIVE: Patient ID: Son Dumas is a [...] 1634 documented in this encounter [facility] Evaluation note No assessment inform ation available [facility] Work Phone: Evaluation note Diagnosis Paresthesia- [...] pain without sciatica documented in this encounter [facility]* Diagnosis Neck pain- Primary Cervicalgia Chronic midline low back pain without sciatica Multiple joint pain Pain in joint, multiple sites Paresthesia Disturbance of skin sensation documented in this encounter [facility]* Diagnosis Neck pain- Primary Cervicalgia Chronic midline low back pain without sciatica Multiple joint pain Pain in joint, multiple sites Paresthesia Disturbance of skin sensation documented in this encounter [facility] note* Diagnosis Neck pain- Primary Cervicalgia Chronic midline low back pain without sciatica Multiple joint pain Pain in joint, multiple sites Paresthesia Disturbance of skin sensation documented in this encounter [facility] note* Diagnosis Positive CATHY (antinuclear antibody)- Primary Other and unspecified nonspecific immunological findings Pain in other joint Joint swelling Effusion of joint, site unspecified Screening for diabetes mellitus (DM) Screening for diabetes mellitus documented in this encounter [facility]* Diagnosis Annual physical exam- Primary Routine general medical examination at a health care facility Blood tests for routine general physical examination Laboratory examination ordered as part of a routine general medical examination Encounter for screening for malignant neoplasm of prostate Special screening for malignant neoplasm of colon Special screening for malignant neoplasms, colon documented in this encounter [facility]* Diagnosis Chronic pain syndrome- Primary Pain in joints Pain in joint, multiple sites documented in this encounter [facility]* Diagnosis Enlarged lymph node in neck- Primary Ganglion cyst of tendon sheath of left hand documented in this encounter [facility]* Diagnosis Neck pain- Primary Cervicalgia DDD (degenerative disc disease), cervical Degeneration of cervical intervertebral disc Lumbosacral radiculopathy Thoracic or lumbosacral neuritis or radiculitis, unspecified Low back pain at multiple sites documented in this encounter [facility] HealthcareInstructions* Attachments The following attachments cannot be sent through Care Everywhere. * Swollen Joints (Korean) [facility] Attachments The following attachments cannot be sent through Care Everywhere. * Yearly Physical for Adults (Korean) [facility] Attachments The following attachments cannot be sent through Care Everywhere. * Joint Pain (Korean) [facility] Attachments The following attachments cannot be sent through Care Everywhere. * Ganglion cyst (Korean) [facility] Consultation (Routine) - Pending Review Specialty Diagnoses / Procedures Referred By Contac t Referred To Contact Rheumatology Diagnoses Positive CATHY (antinuclear antibody) Pain in other joint Joint swelling Rosa Isela Haskins, TELEPHONE APPOINTMENT CLERK-[facility] [address] [place] [address] Pa San MD [address] [place] [address] Referral ID Status Reason Start Date Expiration Date Visits Requested Visits Authorized [id number] Pending Review Specialty Services Required 12/30/2023 12/29/2024 1 1 [facility] (narrative)* Consultation (Routine) - Pending Review Specialty Diagnoses / Procedures Referred By Andriy t Referred To Contact Neurology Diagnoses Pain in joints Rosa Isela Haskins TELEPHONE APPOINTMENT CLERK-[facility] [address] [place] [address] David Watts MD [address] [place] [address] Referral ID Status Reason Start Date Expiration Date Visits Requested Visits Authorized [id number] Pending Review Specialty Services Required 05/10/2024 05/10/2025 1 1 [facility] Narrative* Consultation (Routine) - Closed Specialty Diagnoses / Procedures Referred By Contac t Referred To Contact Neurology Diagnoses Pain in unspecified joint Procedures [place] OFFICE/OUTPATIENT NEW LOW MDM 30 MINUTES Rosa Isela Haskins CRNP [address] [place] [address] Phone: tel: fax: David Watts MD [address] [address] Phone: tel: fax: Referral ID Status Reason Start Date Expiration Date V isits Requested Visits Authorized [id number] Closed Consult and Treat 05/12/2024 11/08/2024 1 1 [facility]* Rehabilitation - Outpatient (Routine) - Authorized Specialty Diagnoses / Procedures Referred By Contac t Referred To Contact Physical Therapy Diagnoses Paresthesia Procedures [place] OFFICE/OUTPATIENT NEW HIGH MDM 60 MINUTES Aniceto Casarez DO [address] [place] [address] Phone: tel: fax: Ludy Crowley, PT [address] [place] [address] Phone: tel: fax: Referral ID Status Reason Start Date Expiration Date Visits Requested Visits Authorized [id number] Authorized Specialty Services Required 06/09/2024 12/06/2024 30 30 [facility] N[facility]* Rehabilitation - Outpatient (Routine) - Authorized Specialty Diagnoses / Procedures Referred By Contac t Referred To Contact Physical Therapy Diagnoses Paresthesia Procedures [place] OFFICE/OUTPATIENT NEW HIGH MDM 60 MINUTES Aniceto Casarez DO [address] [place] [address] Phone: tel: fax: Ludy Crowley, PT [address] [place] [address] Phone: tel: fax: Referral ID Status Reason Start Date Expiration Date Visits Requested Visits Authorized [id number] Authorized Specialty Services Required 06/09/2024 08/02/2024 30 30 [facility] N[facility]* Rehabilitation - Outpatient (Routine) - Authorized Specialty Diagnoses / Procedures Referred By Contac t Referred To Contact Physical Therapy Diagnoses Paresthesia of skin Procedures WI THERAPEUTIC PX 1/> AREAS EACH 15 MIN EXERCISES Aniceto Casarez DO [address] [place] [address] Phone: tel: fax: Ludy Crowley, PT [address] [place] [address] Phone: tel: fax: Referral ID Status Reason Start Date Expiration Date V isits Requested Visits Authorized [id number] Authorized 08/03/2024 08/02/2025 23 23 [facility] [...] section and content) DATE CREATED AUTHOR 02/02/2024 [facility] DATE CREATED AUTHOR AUTHOR'S ORGANIZ ATION 03/31/2024 [facility] DATE CREATED AUTHOR AUTHOR'S ORGANIZ ATION 10/21/2024 [facility] DATE CREATED AUTHOR AUTHOR'S ORGANIZ ATION 11/06/[address] [facility] DATE CREATED AUTHOR AUTHOR'S ORGANIZ ATION 11/18/2024 [facility] EPIC DATE CREATED AUTHOR AUTHOR'S ORGANIZ ATION 01/09/2025 [facility] Care Teams (unrecognized sec tion and content) Team Status: Inactive Member Role Status Dates Pa San MD Attending Provider Active St art: March 17, 2024 End: March 17, 2024 Retail Sales Clerk Relationship Specialty Start Date End Date Rosa Isela Haskins CRNP [address] [place] [address] Referring Physician Nurse Practitioner 05/13/24 Aniceto Casarez DO [address] [address] Referring Physician Neurology 06/09/24 Retail Sales Clerk Relationship Specialty Start Date End Date Rosa Isela Haskins CRNP [address] [place] [address] Referring Physician Nurse Practitioner 05/13/24 Aniceto Casarez DO [address] [address] Referring Physician Neurology 06/09/24 Retail Sales Clerk Relationship Specialty Start Date End Date Rosa Isela Haskins CRNP [address] [place] [address] Referring Physician Nurse Practitioner 05/13/24 Aniceto Casarez DO [address] [address] Referring Physician Neurology 06/09/24 Retail Sales Clerk Relationship Specialty Start Date End Date Rosa Isela Haskins CRNP [address] [place] [address] Referring Physician Nurse Practitioner 05/13/24 Aniceto Casarez DO [address] [address] Referring Physician Neurology 06/09/24 Retail Sales Clerk Relationship Specialty Start Date End Date Rosa Isela Haskins CRNP [address] [place] [address] Referring Physician Nurse Practitioner 05/13/24 Aniceto Casarez DO [address] [address] Referring Physician Neurology 06/09/24 Retail Sales Clerk Relationship Specialty Start Date End Date Rosa Isela Haskins CRNP [address] [place] [address] Referring Physician Nurse Practitioner 05/13/24 Aniceto Casarez DO [address] [address] Referring Physician Neurology 06/09/24 Retail Sales Clerk Relationship Specialty Start Date End Date Rosa Isela Haskins CRNP [address] [place] [address] Referring Physician Nurse Practitioner 05/13/24 Aniceto Casarez DO [address] [address] Referring Physician Neurology 06/09/24 Retail Sales Clerk Relationship Specialty Start Date End Date Rosa Isela Haskins CRNP [address] [place] [address] Referring Physician Nurse Practitioner 05/13/24 Aniceto Casarez DO [address] [address] Referring Physician Neurology 06/09/24 Retail Sales Clerk Relationship Specialty Start Date End Date Rosa Isela Haskins CRNP [address] [place] [address] Referring Physician Nurse Practitioner 05/13/24 Aniceto Casarez DO [address] [address] Referring Physician Neurology 06/09/24 Retail Sales Clerk Relationship Specialty Start Date End Date Rosa Isela Haskins CRNP [address] [place] [address] Referring Physician Nurse Practitioner 05/13/24 Aniceto Casarez DO [address] [address] Referring Physician Neurology 06/09/24 Retail Sales Clerk Relationship Specialty Start Date End Date Rosa Isela Haskins CRNP [address] [place] [address] Referring Physician Nurse Practitioner 05/13/24 Aniceto Casarez DO [address] [address] Referring Physician Neurology 06/09/24 Retail Sales Clerk Relationship Specialty Start Date End Date Rosa Isela Haskins CRNP [address] [place] [address] Referring Physician Nurse Practitioner 05/13/24 Aniceto Casarez DO [address] [address] Referring Physician Neurology 06/09/24 Retail Sales Clerk Relationship Specialty Start Date End Date Rosa Isela Haskins CRNP [address] [place] [address] Referring Physician Nurse Practitioner 05/13/24 Aniceto Casarez DO [address] [address] Referring Physician Neurology 06/09/24 Retail Sales Clerk Relationship Specialty Start Date End Date Rosa Isela Haskins CRNP [address] [place] [address] Referring Physician Nurse Practitioner 05/13/24 Aniceto Casarez DO [address] [place] [phone] Referring Physician Neurology 06/09/24 Retail Sales Clerk Relationship Specialty Start Date End Date Rosa Isela Haskins CRNP [address] [place] [address] Referring Physician Nurse Practitioner 05/13/24 Aniceto Casarez DO [address] [address] Referring Physician Neurology 06/09/24 Retail Sales Clerk Relationship Specialty Start Date End Date Rosa Isela Haskins CRNP [address] [place] [address] Referring Physician Nurse Practitioner 05/13/24 Aniceto Casarez DO [address] [place] [phone] Referring Physician Neurology 06/09/24 Retail Sales Clerk Relationship Specialty Start Date End Date Rosa Isela Haskins CRNP [address] [place] [address] Referring Physician Nurse Practitioner 05/13/24 Aniceto Casarez DO [address] [address] Referring Physician Neurology 06/09/24 Retail Sales Clerk Relationship Specialty Start Date End Date Rosa Isela Haskins CRNP [address] [place] [address] Referring Physician Nurse Practitioner 05/13/24 Aniceto Casarez DO [address] [address] Referring Physician Neurology 06/09/24 Retail Sales Clerk Relationship Specialty Start Date End Date Rosa Isela Haskins CRNP [address] [place] [address] Referring Physician Nurse Practitioner 05/13/24 Aniceto Casarez DO [address] [address] Referring Physician Neurology 06/09/24 Retail Sales Clerk Relationship Specialty Start Date End Date Rosa Isela Haskins CRNP [address] [place] [address] Referring Physician Nurse Practitioner 05/13/24 Aniceto Casarez DO [address] [address] Referring Physician Neurology 06/09/24 Retail Sales Clerk Relationship Specialty Start Date End Date Rosa Isela Haskins APRN-MATTHIEU [address] [place] [address] PCP - General Family Medicine 11/27/20 Retail Sales Clerk Relationship Specialty Start Date End Date Rosa Isela Haskins TELEPHONE APPOINTMENT CLERK-[facility] [address] [place] [address] PCP - General Family Medicine 11/27/20 Retail Sales Clerk Relationship Specialty Start Date End Date Rosa Isela Haskins TELEPHONE APPOINTMENT CLERK-[facility] [address] [place] [address] PCP - General Family Medicine 11/27/20 Retail Sales Clerk Relationship Specialty Start Date End Date Rosa Isela Haskins CRNP [address] [place] [address] Referring Physician Nurse Practitioner 05/13/24 Aniceto Casarez DO [address] [address] Referring Physician Neurology 06/09/24 Retail Sales Clerk Relationship Specialty Start Date End Date Unallocated, Noms MD Chris [address] [place] [address] PCP - General Family Medicine 11/16/24 Rosa Isela Haskins CRNP Referring Physician Nurse Practitioner 05/13/24 Aniceto Casarez DO [address] [address] Referring Physician Neurology 06/09/24 Angela Estevez PA [address] [place] [address] Physician Cadd Manager Neurology 11/16/24 Retail Sales Clerk Relationship Specialty Start Date End Date Unallocated, Noms MD Chris [address] [place] [address] PCP - General Family Medicine 11/16/24 Rosa Isela Haskins CRNP Referring Physician Nurse Practitioner 05/13/24 Aniceto Casarez DO [address] [address] Referring Physician Neurology 06/09/24 Angela Estevez PA [address] [place] [address] Physician Cadd Manager Neurology 11/16/24 Goals (unrecognized section and content) [...] Referred By Andriy lambert Referred To Contact Orthopaedic Surgery Diagnoses Ulnar neuropathy of both upper extremities Lisbeth Grimes, AIDAN [address] [address] Phone: tel: Jr. Carson James DO [address] [place] [address] Phone: tel: fax: Referral ID Status Reason Start Date Expiration Date V isits Requested Visits Authorized [id number] Closed Consult and Treat 07/06/2024 01/02/2025 1 [...] BE BASED ON THE PRIMARY CLINICAL RECORDS. [facility]. provides no warranty or guarantee of the accuracy or completeness of information in this document.
--- NOTE | 2025-01-12 10:05 | P.CN_ITS ---
Consult Note: HPI Data of Consult Patient: known to practice within the last 3 years Requesting Physician: Annie Kerr NP Primary Care Provider: ROSA ISELA FRY Consult Narrative Reason for consult: neck and back/BLE pain Narrative: Son Dumas a 59 year old male presents for evaluation of chronic neck and low back with BLE pain. pt completed 6 weeks of PT without improvement in pain, has failed to benefit from heat, ice, tylenol, nsaids. currently utilizing zonegran 50-100mg HS, and baclofen 5-10mg BID PRN pain/spasms. pain in neck 2/10 increasing to 10/10 with activity and ROM, pain in low back and BLE 4/10 increasing to 8/10 with standing and walking. Pt recently underwent bilateral C4-5 C5-6 MBB #1 and #2 with >80% improvement in neck pain for a few hours after the injection, preop pain up to 10/10 post op pain 1/10. Pt noting moderate relief from bilateral L5/S1 TFESI as well. cc:: CC: Annie Kerr NP Review of Systems ROS Status of ROS 10 or more systems reviewed and unremark able except as noted in history and below PFSH PFSH Medical History Low back pain ?M54.50 - Low back pain, unspecified (ICD-10) Neck pain ?M54.2 - Cervicalgia (ICD-10) Obesity ?E66.9 - Obesity, unspecified (ICD-10) Hypertension ?I10 - Essential (primary) hypertension (ICD-10) Smoker ?F17.200 - Nicotine dependence, unspecified, uncomplicated (ICD-10) Surgical History (Updated 12/02/24 @ 14:38 by Aundrea Castro) H/O arthroscopic knee surgery ?Z98.890 - Other specified postprocedural states (ICD-10) H/O cataract extraction ?Z98.49 - Cataract extraction status, unspecified eye (ICD-10) Meds Home Medications and Allergies Home Medications ?Medication ?Instructions ?Recorded ?Confirmed ?Type baclofen 10 mg tablet 10 mg PO BID PRN muscle spas m 10/18/24 01/02/25 History zonisamide 100 mg capsule 100 mg PO .hs 10/18/2401/02 History (Zonegran) Allergies Allergy/AdvReac Type Severity Reaction Status Date / Time bees Allergy Mild Unknown Uncoded 01/02/25 09:01 Exam Constitutional Documenting provider has reviewed patient's vital signs: yes Common normals: no apparent distress, oriented x3, healthy appearing, alert and well nourished General appearance: cooperative HENMT Common normals: normocephalic, hearing grossly normal bilaterally and moist oral mucous membranes Head and scalp: normocephalic Eye Common normals: PERRL Pupil: PERRL Neck & C-Spine Common normals: full ROM General: normal visual inspection Cervical spine: cervical ROM abnormal, pain with cervical ROM and cervical spine tenderness C4, C5 and C6 Other: negative spurlings sensation intact BUE strength 5/5 in BUE Chest Common normals: inspection of chest normal Respiratory Common normals: normal respiratory effort, no retractions and no use of accessory muscles Back & Pelvis Lumbar spine/lower back: ROM limited, pain with ROM, straight leg raise positive right and straight leg raise positive left Other: increased low back and BLE pain with standing and walking, improved with forward flexion decreased sensation bilateral L4,5 strength 4/5 in BLE Neuro Common normals: oriented x3 Sensorium/orientation: alert Psych Common normals: mental status grossly normal, thought process normal, coop erative, affect normal, speech normal and activity/motor behavior normal Speech: normal speech Thought process: normal thought process Results Additional Findings Additional findings: If on a controlled substance or opioids, I have checked an OARRS report on this patient and there are no aberrancies noted in the prescribing history.??If on a controlled substance or opioid a drug screen was completed and reviewed within the last year, and if there has not been a drug screen completed we ordered one today to monitor higher risk, state monitored pain medication use. As part of providing excellent, safe, comprehensive care, the following was completed at our patient's visit: 1. A medication reconciliation and review to ensure accurate knowledge of current/active medications, including asking our patients to inform us about any yauk-dik-kwfsqdq medications or herbal remedies/nutritional supplements/alternative remedies. 2. A review to specifically ensure our patients have had annual screening for screening for depression, screening for tobacco use, and screening for unhealthy alcohol use. For concerning screenings had a discussion with the patient, provided patient education, and recommended follow-up with primary care provider when appropriate. If patient noted with a risk of falling, they received education on strength, gait, and balance training to prevent future risk of falling. Portions of this note may have been carried over from the previous visit and updated as appropriate. Please note this office utilizes paper charting in addition to the electronic medical record. A list of current medications, vitals, and PMH is available there as the clinical staff outside of myself do not have access to [employer] charting during the clinic day operations. As part of providing quality comprehensive care the current medications, vitals, and PMH were reviewed in the paper chart. Assessment and Plan Assessment and Plan (1) Cervical spondylosis: (2) Lumbar stenosis with neurogenic claudication: (3) Myalgia, other site: Plan The patient has had over 3 months of moderate to severe axial facet mediated neck pain and bilateral low back and LE pain with functional impairment and inadequate response to conservative care including NSAIDS (unless there are contraindication such as concurrent blood thinners), multiple oral or topical pain medications, and home exercise program/physical therapy.? Patient has completed >6 weeks of guided home exercise program and/or formal physical therapy program without relief of their symptoms.? I have reviewed the imaging of the cervical spine and lumbar spine and no red flags were identified.? The imaging reveals radiographic findings consistent with facet arthropathy of the cervical spine and multilevel spondylosis and stenosis on lumbar MRI The Oswestry Disability Index was completed, and the patient scored a 42%.? The patient noted the following:?? moderate to severe pain with standing, sitting, walking, sleep, social life, and travel We discussed the risks and benefits of the procedure with the patient, and we are NOT planning on using sedation as outlined in the guidelines from Medicare unless there is a documented reason that sedation would be strongly recommended.?? ?The procedure will be completed with fluoroscopic guidance.? right then left C4/5 C5/6 facet RFA under fluoroscopy bilateral L4-5 TFESI under fluoroscopy for lumbar stenosis with NC, noting >50% improvement in NC following L5/S1 from prior injection but continues to have moderate to severe pain with standing and walking following L4/5. note prior MRI shows multilevel stenosis continue current medications, tolerating well without side effects f/u 1 month after RFAs complete and 2 weeks after TFESI
== END 2025-01-12 09:38 | disposition home or self-care (01) ==
LOC: PM 09:37
PROVIDERS: PCP Nurse Practitioner; Visit Provider Nurse Practitioner
DX: M47.812 Spondylosis without myelopathy or radiculopathy, cervical region (principal); M48.062 Spinal stenosis, lumbar region with neurogenic claudication; M79.18 Myalgia, other site
CPT/HCPCS: G0463

== ENCOUNTER 2025-02-06 08:12 | Day surgery (SDC) | payer OTHER, SELFPAY ==
[2025-02-06 08:22] VITALS: BP 145/84; PULSE 93; TEMP 36.3; O2SAT 93
[2025-02-06 08:44] VITALS: BP 162/83; PULSE 136; O2SAT 94
[2025-02-06 08:47] VITALS: PULSE 139; O2SAT 95
[2025-02-06 08:48] VITALS: BP 164/90
[2025-02-06] MEDS: LIDOCAINE HCL 2% 400 MG/20 ML MDV 8 ML INJ (08:53)
[2025-02-06] MEDS: BUPIVACAINE HCL 0.25% PF 25 MG/10 ML VIAL 2 ML INJ (08:53)
[2025-02-06] MEDS: DEXAMETHASONE SOD PHOS 10 MG/ML VIAL INJ (08:53)
--- NOTE | 2025-02-06 08:57 | P.ON_ITS ---
Date of procedure: 02/06/25 Pre-op diagnosis: Pain due to cervical spondylosis without myelopathy Post-op diagnosis: same as pre-op Procedure: Procedure: Right C4-5, 5-6 radiofrequency ablation Medications: Bupivacaine 0.25% 2cc, dexamethasone 10mg, lidocaine 2% 3cc The patient was seen and examined in the preoperative holding area.? The site was marked.? Written informed consent was obtained and placed on the chart.? The patient was brought to the medical procedure unit and placed in the prone position.? A timeout was completed verifying correct patient, procedure, positioning, and special requirements.? The skin overlying the target points, the designated medial branch, was prepped and draped in the usual sterile fashion.? The target point was achieved with a 20-gauge 15 cm with a 10 mm curved active tip radiofrequency cannula under direct fluoroscopic visualization .? The needle was inserted at level C4 on the right side. Needle tip position was confirmed with lateral fluoroscopic position.? Motor stimulation was carried out at 2 Hz up to 5 volts with the absence of extremity activity.? This was repeated at level C5, 6 on right side.?? Sensory stimulation was carried out.? Concordant pain was realized at the above- mentioned sites.? Then radiofrequency lesioning was carried out times 90 seconds at 80 degrees times 2 lesions at each level.? The radiofrequency probe was removed prior to cannula removal.? The above-mentioned injectate was placed in 1 mL increments.? The needle was removed.? Insertion sites were covered.? The patient was taken to the postoperative recovery area and monitored for an appropriate length of time before being found suitable for discharge in the company of a responsible adult. Anesthesia: Local Surgeon: Frank Bah Pathology: none sent Condition: stable Disposition: no change
== END 2025-02-06 08:59 | disposition home or self-care (01) ==
LOC: SURGOUT 08:13
PROVIDERS: PCP Nurse Practitioner; Visit Provider Anesthesiology
DX: M47.812 Spondylosis without myelopathy or radiculopathy, cervical region (principal); M54.2 Cervicalgia
CPT/HCPCS: 64633; 64634; J0665; J1100

== ENCOUNTER 2025-03-13 11:15 | Day surgery (SDC) | payer OTHER, SELFPAY ==
--- OUTSIDE RECORDS SUMMARY | 2025-03-13 11:17 | XMS_ITS | Encounter Summary ---
Author Organization [employer] tem Address [id number] [address] [place] [address] Care Team Providers Care Polymer Engineer Name Role Phone Poncho Doran PARKS WORKER-INSTRUCTOR BALLROOM DANCING Primary Care Provider + Encounter Details Date Type Department Care Team (Late st Contact Info) Description 05/11/2024 Orders Only [facility] - Family Medicine [address] [place] [address] Margy Haskins, PARKS WORKER-INSTRUCTOR BALLROOM DANCING [address] LEFT PM 01/30/25 [place] [phone] Positive CATHY (antinuclear antibody); Pain in other [...] referral to Rheumatology ([facility]) (05/05/2024) us Margy Haskins APRN-[facility] OUTPATIENT REFERRAL ORDERABLES Final Result Performing Organization Address City/State/[facility] Co de Phone Number MANUALLY TRANSCRIBED RESULTS documented in this encounter [...] documented as of this encounter Care Teams Polymer Engineer Relationship Specialty Start Date End Date Poncho Doran, YADIRA-[facility] [address] [place] [address] PCP - General Internal Medicine 02/27/25 documented as of this encounter
--- OUTSIDE RECORDS SUMMARY | 2025-03-13 11:17 | XMS_ITS | Encounter Summary ---
Author Organization [facility] Address [address] [place] [address] Care Team Providers Care Administrative Professional Name Role Phone Haskins Margy LANDON Unavailable [phone] Aniket Casarez DO Unavailable [phone] Angela Estevez Unavailable Unallocated, Noms Provider Primary Care Provi hung Encounter Details Date Type Department Care Team (Late st Contact Info) Description 11/04/2024 External Result Encounter CATHY BUSTAMANTE [address] [place] [phone] Lisbeth Middleton NP Social History Tobacco Use Types Packs/Day Years [...] AM EDT THIS EXAM WAS PERFORMED AT [facility] CLINICAL INFORMATION: Lumbosacral radiculopathy; Low back pain [...] - 11/04/2024 THIS EXAM WAS PERFORMED AT [facility] CLINICAL INFORMATION: Lumbosacral radiculopathy; Low back pain [...] characteristic abnormality. There is a partially lumbarized [id number] body. At the L5-S1 level disc osteophyte [...] MD on 11/04/2024 11:30 AM Lisbeth Middleton ORDER EXPEDITER IMG MRI PROCEDURES Final Result documented in this encounter Visit Diagnoses Not on filedocumented in this encounter Care Teams Administrative Professional Relationship Specialty Start Date End Date Unallocated, Noms Provider, [address] [place] [address] PCP - General Family Medicine 11/16/24 Margy Haskins CRNP Referring Physician Nurse Practitioner 05/13/24 Aniket Casarez DO [address] [place] [id number] Referring Physician Neurology 06/09/24 Angela Estevez PA [address] [place] [address] Physician Supervisor Boilermaking Shop Neurology 11/16/24 documented as of this encounter
--- OUTSIDE RECORDS SUMMARY | 2025-03-13 11:17 | XMS_ITS | Clinical Summary ---
Author Organization [employer] [facility] tem Address [id number] [address] [place] [address] Care Team Providers Care Bath Steward Name Role Phone Poncho Doran PROJECT PRODUCT MANAGER-WORKERS' COMPENSATION CLAIMS SUPERVISOR Primary Care Provider + Allergies Active Allergy Reactions Criticality Noted Date Comments Bee Venom Protein (Honey Bee) Shortness Of Breath,Swelling High 11/26/2020 Medications No known medications Active Problems No known active problems Immunizations No known immunizations Family History Medical [...] 10/19/2025 10/19/2024 Medical Devices Not on file Insurance [employer] Care Teams Bath Steward Relationship Specialty Start Date End Date Poncho Doran, YADIRA-WORKERS' COMPENSATION CLAIMS SUPERVISOR [address] [place] [address] PCP - General Internal Medicine 02/27/25
--- OUTSIDE RECORDS SUMMARY | 2025-03-13 11:17 | XMS_ITS | Encounter Summary ---
Author Organization [email or web address] Address [id number] [address] [place] [address] Care Team Providers Care Hydrate Control Tender Name Role Phone Poncho Doran AUTOMOTIVE PRODUCT SPECIALIST-DISTRIBUTION COLLECTION OPERATOR Primary Care Provider + Encounter Details Date Type Department Care Team (Late st Contact Info) Description 03/22/2024 Telephone [facility] Internal Medicine - Family Medicine [address] [place] [phone] Gabriela Vuong CMA Social History Tobacco Use [...] documented as of this encounter Care Teams Hydrate Control Tender Relationship Specialty Start Date End Date Poncho Doran, AUTOMOTIVE PRODUCT SPECIALIST-DISTRIBUTION COLLECTION OPERATOR [address] [place] [address] PCP - General Internal Medicine 02/27/25 documented as of this encounter
--- OUTSIDE RECORDS SUMMARY | 2025-03-13 11:17 | XMS_ITS | Encounter Summary ---
Author Organization [facility] Address [id number] [address] [place] [address] Care Team Providers Care Net Solutions Architect Name Role Phone Poncho Doran FILM CRITIC-LAP WINDER Primary Care Provider + Encounter Details Date Type Department Care Team (Late st Contact Info) Description 10/06/2024 Orders Only [facility] Internal Medicine - Family Medicine [address] [place] [address] Ref Prov, [place] [address] Social History Tobacco Use Types Packs/Day Years [...] documented as of this encounter Care Teams Net Solutions Architect Relationship Specialty Start Date End Date Poncho Doran, YADIRA-LAP WINDER [address] [place] [address] PCP - General Internal Medicine 02/27/25 documented as of this encounter
--- OUTSIDE RECORDS SUMMARY | 2025-03-13 11:17 | XMS_ITS | Encounter Summary ---
Author Organization [employer] Address [id number] [address] [place] [address] Care Team Providers Care Energy Sales Broker Name Role Phone Poncho Doran CLAIMS ANALYST-EYEGLASS FRAMES POLISHER Primary Care Provider + Encounter Details Date Type Department Care Team (Late st Contact Info) Description 02/02/2024 Telephone [facility] Internal Medicine - Family Medicine [address] [place] [address] Gabriela Vuong CMA Social History Tobacco Use [...] documented as of this encounter Care Teams Energy Sales Broker Relationship Specialty Start Date End Date Poncho Doran, CLAIMS ANALYST-EYEGLASS FRAMES POLISHER [address] [place] [address] PCP - General Internal Medicine 02/27/25 documented as of this encounter
--- OUTSIDE RECORDS SUMMARY | 2025-03-13 11:17 | XMS_ITS | Encounter Summary ---
Author Organization [facility] Address [address] [place] [address] Care Team Providers Care Residential Lawn Specialist Name Role Phone Haskins Margy LANDON Unavailable [phone] Aniket Casarez DO Unavailable [phone] Angela Estevez Unavailable Unallocated, Noms Provider Primary Care Provi hung Encounter Details Date Type Department Care Team (Late st Contact Info) Description 09/26/2024 External Result Encounter CATHY BUSTAMANTE [address] [place] [phone] Lisbeth Middleton NP Social History Tobacco [...] PM EST THIS EXAM WAS PERFORMED AT [facility]: MR CERVICAL SPINE WO CONT HISTORY: [...] - 09/26/2024 THIS EXAM WAS PERFORMED AT [facility]: MR CERVICAL SPINE WO CONT HISTORY: [...] on filedocumented in this encounter Care Teams Residential Lawn Specialist Relationship Specialty Start Date End Date Unallocated, Noms MD Chris [address] [place] [address] PCP - General Family Medicine 11/16/24 Margy Haskins CRNP Referring Physician Nurse Practitioner 05/13/24 Aniket Casarez DO [address] [place], [place] [phone] Referring Physician Neurology 06/09/24 Angela Estevez PA [address] [place] [address] Physician Air Battle Manager Neurology 11/16/24 documented as of this encounter
--- OUTSIDE RECORDS SUMMARY | 2025-03-13 11:17 | XMS_ITS | Encounter Summary ---
Author Organization [employer] Address [id number] [address] [place] [address] Care Team Providers Care Leadlighter Name Role Phone Poncho Dorna NUT SHELLER MACHINE OPERATOR-TIRE REBUILDER Primary Care Provider + Encounter Details Date Type Department Care Team (Late st Contact Info) Description 10/20/2024 Orders Only [facility] Internal Medicine - Family Medicine [address] [place] [address] Ref Prov, [place] [address] Social History Tobacco Use Types Packs/Day Years [...] Time PHQ-9 Depression Total Score: 0 10/20/19 10:52 AM EDT A Body Mass Index follow-up plan has been documented for the patient 10/19/2024 12:51 PM EDT documented as of this encounter Care Teams Leadlighter Relationship Specialty Start Date End Date Poncho Doran, NUT SHELLER MACHINE OPERATOR-TIRE REBUILDER [address] [place] [address] PCP - General Internal Medicine 02/27/25 documented as of this encounter
--- OUTSIDE RECORDS SUMMARY | 2025-03-13 11:17 | XMS_ITS | Encounter Summary ---
Author Organization [facility] Address [address] [place] [address] Care Team Providers Care Licensed Nursing Assistant Name Role Phone Margy Haskins Unavailable [phone] Aniket Casarez DO Unavailable [phone] Angela Estevez Unavailable Unallocated, Noms Provider Primary Care Provi hung Reason for Visit * Reason Onset Date Comments Med Refill 07/13/2024 Encounter Details Date Type Department Care Team (Late st Contact Info) Description 07/13/2024 Refill [facility] [address] [place] [phone] Nandini Cox PTA Social History Tobacco Use [...] on filedocumented in this encounter Care Teams Licensed Nursing Assistant Relationship Specialty Start Date End Date Unallocated, Noms Provider, [address] [place] [address] PCP - General Family Medicine 11/16/24 Margy Haskins CRNP Referring Physician Nurse Practitioner 05/13/24 Aniket Casarez DO [address] [place] [address] Referring Physician Neurology 06/09/24 Angela Estevez PA [address] [facility] [address] [place], [place] [phone] Physician Gas Regulator Repairer Helper Neurology 11/16/24 documented as of this encounter
--- OUTSIDE RECORDS SUMMARY | 2025-03-13 11:17 | XMS_ITS | Encounter Summary ---
Author Organization [employer] [facility] tem Address [id number] [address] [place] [address] Care Team Providers Care Health Occupations Instructor Name Role Phone Poncho Doran REAL PROPERTY EVALUATOR-EXTRACTING MACHINE OPERATOR Primary Care Provider + Encounter Details Date Type Department Care Team (Late st Contact Info) Description 02/02/2024 Telephone [facility] Internal Medicine - Family Medicine [address] [place] [phone] Noy Bruno CMA Social History Tobacco Use [...] see someone else. * Telephone Encounter - NADRESSA Guzman - 02/02/2024 10:32 AM EDT Make sure you notify the patient and inform. I strongly recommend him seeing a club licensee. [facility] will be [place] documented in this [...] documented as of this encounter Care Teams Health Occupations Instructor Relationship Specialty Start Date End Date Poncho Doran, YADIRA-MATTHIEU [address] [place] [address] PCP - General Internal Medicine 02/27/25 documented as of this encounter
[2025-03-13 11:33] VITALS: BP 149/101; PULSE 82; TEMP 36.3; O2SAT 97
[2025-03-13 12:10] VITALS: BP 133/84; PULSE 76; O2SAT 92
[2025-03-13 12:14] VITALS: BP 137/85; PULSE 78; O2SAT 94
[2025-03-13] MEDS: LIDOCAINE HCL 2% 400 MG/20 ML MDV 9 ML INJ (12:20)
[2025-03-13] MEDS: DEXAMETHASONE SOD PHOS 10 MG/ML VIAL INJ (12:20)
[2025-03-13] MEDS: BUPIVACAINE HCL 0.25% PF 25 MG/10 ML VIAL 2 ML INJ (12:20)
--- NOTE | 2025-03-13 12:25 | P.ON_ITS ---
Date of procedure: 03/13/25 Pre-op diagnosis: Pain due to cervical spondylosis without myelopathy Post-op diagnosis: same as pre-op Procedure: Procedure: Left C4-5, 5-6 radiofrequency ablation Medications: Bupivacaine 0.25% 2cc, dexamethasone 10mg, lidocaine 2% 3cc The patient was seen and examined in the preoperative holding area.? The site was marked.? Written informed consent was obtained and placed on the chart.? The patient was brought to the medical procedure unit and placed in the prone position.? A timeout was completed verifying correct patient, procedure, positioning, and special requirements.? The skin overlying the target points, the designated medial branch, was prepped and draped in the usual sterile fashion.? The target point was achieved with a 20-gauge 15 cm with a 10 mm curved active tip radiofrequency cannula under direct fluoroscopic visualization.? The needle was inserted at level C4 on the left side. Needle tip position was confirmed with lateral fluoroscopic position.? Motor stimulation was carried out at 2 Hz up to 5 volts with the absence of extremity activity.? This was repeated at level C5, 6 on left side.?? Sensory stimulation was carried out.? Concordant pain was realized at the above- mentioned sites.? Then radiofrequency lesioning was carried out times 90 seconds at 80 degrees times 2 lesions at each level.? The radiofrequency probe was removed prior to cannula removal.? The above-mentioned injectate was placed in 1 mL increments.? The needle was removed.? Insertion sites were covered.? The patient was taken to the postoperative recovery area and monitored for an appropriate length of time before being found suitable for discharge in the company of a responsible adult. Anesthesia: Local Surgeon: Frank Bah Pathology: none sent Condition: stable Disposition: no change
== END 2025-03-13 12:26 | disposition home or self-care (01) ==
PROVIDERS: PCP Nurse Practitioner; Visit Provider Anesthesiology
DX: M47.812 Spondylosis without myelopathy or radiculopathy, cervical region (principal); M54.2 Cervicalgia
CPT/HCPCS: 64633; 64634; J0665; J1100

== ENCOUNTER 2025-03-27 07:52 | Day surgery (SDC) | payer OTHER, SELFPAY ==
--- OUTSIDE RECORDS SUMMARY | 2025-03-27 07:58 | XMS_ITS | CCD ---
Author Organization [facility] Care Team Providers Care Transmission Inspector Name Role Phone ANG, ROSA ISELA Referring Unavailable HASKINS, ROSA ISELA Primary Care Unavailable HASKINS, ROSA ISELA Referring Unavailable HASKINS, ROSA ISELA Primary Care Unavailable MD Pa San Attending Provider Pa San Attending Unavailable Pa San Admitting Unavailable Haskins LANDON, Rosa Isela Unavailable Aniceto Casarez DO Unavailable Rosa Isela Lyn Primary Care Provid er ORSA ISELA HASKINS J Attending Unavailable HASKINSJANETROSA ISELA [...] ISELA Referring Unavailable LUDY CROWLEY Attending Unavailable HERMELINDOANICETO BLUM Referring Unavailable TATTERSNANDINI CASTANEDA Attending Unavailable HERMELINDO, ANICETO Referring Unavailable HERMELINDO, ANICETO Attending Unavailable GRIMESLISBETH NUNEZ Attending Unavailable TATTERSRAPHAEL, NANDINI Attending Unavailable HERMELINDO, CHRISTADAM Referring Unavailable TATTERSALL, NANDINI Attending Unavailable HERMELINDO, CHRISTADAM Referring Unavailable PA MATHEWS Attending Unavailable GRIMESLISBETH NUNEZ Referring Unavailable TATTERSNANDINI CASTANEDA Attending Unavailable HERMELINDO, ANICETO Referring Unavailable CARLINELUDY AGEE Attending Unavailable HERMELINDO, ANICETO Referring Unavailable CARLINELUDY AGEE Attending Unavailable HERMELINDO, CHRISTADAM Referring Unavailable DANNI LUNA Attending Unavailable HERMELINDO, CHRISTPAYALER Referring Unavailable TATTERSALL, NANDINI Attending Unavailable HERMELINDO, ANICETO Referring Unavailable CARLINE, LUDY Alvares Attending Unavailable HERMELINDO, ANICETO Referring Unavailable GRIMESLISBETH Attending Unavailable ANGELA ESTEVEZ Attending Unavailable Giedraitis , Andrius Vsaleem Attending Unavailable Giedraitis , Andrius Vytvirginie Attending Unavailable Giedraitis , Andrius Vytautelina Attending Unavailable Giedraitis , Andrius Vytautas Attending Unavailable Giedraitis , Andrius Vytautelina Attending Unavailable Allergies Allergy Classification Reported Allergen(s) [...] take 1 capsule by mouth at bedti me tiZANidine (Zanaflex) 4 MG capsule Take 4 mg by mouth at bedtime Active Completed/Discontinued Medications Medication Drug Class(es) Dates Sig (Normalized) Sig (Original) [id number] 0.3 ml EPINEPHrine 1 mg/ml auto-injector (1 [...] Ole Richardson MD on 11/06/2024 6:08 AM [facility] MR LUMBAR SPINE WO CONTon [...] Mcdonnell MD on 11/04/2024 11:30 AM Normal [facility] MR CERVICAL SPINE WO CONTon 09-26-2024 [...] Cristhian Lilly on 09/26/2024 1:29 PM Normal [facility] B. burgdorferi IgG+IgM Qn (S )on 07-21-2024 LYME TOTAL <0.2 Normal <0.9 [facility] Comment on above: Result Comment: Interpretation-------- <0.9 Negative 0.9 - 1.0 Equivocal >1.0 Positive No serological evidence of Borrelia infection.A non-reactive result does not exclude the possibility of Borrelia infection and cannot exclude early infection with B.burgdorferi. If Lyme borreliosis is suspected, a second sample should be collected and tested 2-4 weeks later. Performed By: #### 8 2477, 1987-12, 2638-10, 80021-6 #### [facility] ([id number]) [address], [address] [place] [address] CRP [Mass/Vol]on 07-21-2024 C REACTIVE PROTEIN 0.9 mg/dL High 0.000-0.744 [facility] Comment on above: Performed By: #### 8 2477-, 1987-12, 2638-10, 03048-3 #### [facility] ([id number]) [address], [address] [place] [address] ESR (Bld) [Velocity]on 07-21 [facility] ESR Photometric method (Bld) [Velocity]on 07-21-2024 ESR, ERYTHROCYTE SEDIMENTATION RATE 10 mm/h Normal 0-20 [facility] Comment on above: Performed By: #### 8 2477-1, 1987-12, 263-3, 06131-0 #### [facility] ([id number]) [address], [address] [place] [address] Myoglobin [Mass/Vol]on 07-21 SERUM MYOGLOBIN 25.3 ng/mL Normal 17.4-105.7 [facility] Comment on above: Performed By: #### 8 2477-, 1987-12, 2638-10, 40908-1 #### [facility] ([id number]) [address], [address] [place] [address] Sedimentation rate, automate don 07-21-2024 ESR (Bld) [Velocity] 10 mm/h 0 - 20 mm/h [facility] Comment on above: PERFORMED AT [facility] [address],[place] [address] EMG 2 Extremitieson 07-05-20 24 Ulnar neuropathy bilateral, axonal loss, non localizable Carpal tunnel, minimal bilaterally [facility] NVC 11-12 Nerveson 4 Ulnar neuropathy bilateral, axonal loss, non localizable Carpal tunnel syndrome bilaterally, minimal bilaterally [facility] CATHY Antinuclear Antibodieson 03-17-2024 Antinuclear Abs, IFA Negative Normal . [facility] Comment on above: Result Comment: Nega tive <1:80 Borderline 1:80 Positive >1:80 ICAP nomenclature: AC-[id number] For more information about Hep-2 cell patterns use ANApatterns.org, the official website for the International Consensus on Antinuclear Antibody (CATHY) Patterns (ICAP). Performed at: - [facility] [id number] Knot Saw Operator: Mil Guzman PhD, Phone: [phone] Performed By: #### T SH3, PP, ESR, CBC, CMP, CK, ADDONUAPLUS, CRP, T4F #### [facility] [address] [place] [address] #### HBCAB, RPR W RFX, HBSAG, HCV RX PCR, HBSAB, ALDOLASE #### [facility] , Activated partial thrombopla stin time (aPTT) in platelet poor plasma by coagulation aOrdered By: Pa San on 03-17-2024 aPTT Coag (PPP) [Time] 34.1 s 25.1-36.5 [facility] Comment on above: A hematocrit value g reater than 55% may lead to inaccurate results in coagulation testing. Patients having hematocrit values >55% require a special collection tube for coagulation studies. Please contact the laboratory at [phone] for redraw instructions. Alanine aminotransferase [En zymatic activity/volume] in Serum or PlasmaOrdered By: Pa Blackmanrow on 03-17-2024 ALT [Catalytic activity/Vol] 39 U/L Normal 7-52 [facility] Comment on above: Performed By: #### T SH3, PP, ESR, CBC, CMP, CK, ADDONUAPLUS, CRP, T4F #### [facility] [address] [place] [address] [place] #### HBCAB, RPR W RFX, HBSAG, HCV RX PCR, HBSAB, ALDOLASE #### [facility] , Albumin [Mass/volume] in Ser um or Plasma by Bromocresol green (BCG) dye binding methoOrdered By: Pa San on 03-17-2024 Albumin BCG dye [Mass/Vol] 4.6 g/dL 3.5-5.7 [facility] Aldolaseon 03-17-2024 Aldolase 4.7 U/L Normal 3.3-10.3 [facility] Comment on above: Result Comment: Perf ormed at: CB - [facility] [address] [id number] Knot Saw Operator: Mil Guzman PhD, Phone: [phone] PERFORMED BY: [place] [address] PATHOLOGIST RAILROAD SWITCHMAN JOSE ROGERS M.D. Performed By: #### T SH3, PP, ESR, CBC, CMP, CK, ADDONUAPLUS, CRP, T4F #### [address] #### HBCAB, RPR W RFX, HBSAG, HCV RX PCR, HBSAB, ALDOLASE #### [facility] , Alkaline phosphatase [Enzyma tic activity/volume] in Serum or PlasmaOrdered By: Pa San on 03-17-2024 ALP [Catalytic activity/Vol] 73 U/L Normal 34-104 [facility] Comment on above: Performed By: #### T SH3, PP, ESR, CBC, CMP, CK, ADDONUAPLUS, CRP, T4F #### [address] #### HBCAB, RPR W RFX, HBSAG, HCV RX PCR, HBSAB, ALDOLASE #### [facility] , Antithyroglobulin Abon 03-17 Antithyroglobulin Ab <1.0 Normal 0.0-0.9 [facility] Comment on above: Result Comment: Thyr oglobulin Antibody measured by [place] [employer] It should be noted that the presence of thyroglobulin antibodies may not be pathogenic nor diagnostic, especially at very low levels. The assay brim molder has found that four percent of individuals without evidence of thyroid disease or autoimmunity will have positive TgAb levels up to 4 IU/mL. Performed at: [address] [id number] Knot Saw Operator: Mil Guzman PhD, Phone: [phone] Performed By: #### T SH3, PP, ESR, CBC, CMP, CK, ADDONUAPLUS, CRP, T4F #### [place] [address] [place] #### HBCAB, RPR W RFX, HBSAG, HCV RX PCR, HBSAB, ALDOLASE #### [facility] , Aspartate aminotransferase [ Enzymatic activity/volume] in Serum or PlasmaOrdered By: Pa San on 03-17-2024 AST [Catalytic activity/Vol] 28 U/L Normal 13-39 [facility] Comment on above: Performed By: #### T SH3, PP, ESR, CBC, CMP, CK, ADDONUAPLUS, CRP, T4F #### [address] #### HBCAB, RPR W RFX, HBSAG, HCV RX PCR, HBSAB, ALDOLASE #### [facility] , Automated basophil %Ordered By: Pa San on 03-17-2024 Basophils/100 WBC (Bld) 1.1 % Normal . [facility] Comment on above: Performed By: #### T SH3, PP, ESR, CBC, CMP, CK, ADDONUAPLUS, CRP, T4F #### [address] #### HBCAB, RPR W RFX, HBSAG, HCV RX PCR, HBSAB, ALDOLASE #### [facility] , Automated basophil countOrde red By: Pa San on 03-17-2024 Basophils (Bld) [#/Vol] 0.1 10*3/uL Normal 0.0-0.2 [facility] Comment on above: Performed By: #### T SH3, PP, ESR, CBC, CMP, CK, ADDONUAPLUS, CRP, T4F #### [place] [address] [place] #### HBCAB, RPR W RFX, HBSAG, HCV RX PCR, HBSAB, ALDOLASE #### [facility] , Automated blood monocyte cou ntOrdered By: Pa San on 03-17-2024 Monocytes (Bld) [#/Vol] 0.6 10*3/uL Normal 0.0-0.8 [facility] Comment on above: Performed By: #### T SH3, PP, ESR, CBC, CMP, CK, ADDONUAPLUS, CRP, T4F #### [place] [address] [place] #### HBCAB, RPR W RFX, HBSAG, HCV RX PCR, HBSAB, ALDOLASE #### [facility] , Automated eosinophil %Ordere d By: Pa San on 03-17-2024 Eosinophils/100 WBC (Bld) 2.4 % Normal . [facility] Comment on above: Performed By: #### T SH3, PP, ESR, CBC, CMP, CK, ADDONUAPLUS, CRP, T4F #### [facility] [address] [place] [address] [place] #### HBCAB, RPR W RFX, HBSAG, HCV RX PCR, HBSAB, ALDOLASE #### [facility] , Automated eosinophil countOr dered By: Pa San on 03-17-2024 Eosinophils (Bld) [#/Vol] 0.2 10*3/uL Normal 0.0-0.45 [facility] Comment on above: Performed By: #### T SH3, PP, ESR, CBC, CMP, CK, ADDONUAPLUS, CRP, T4F #### [facility] [address] [place] [address] [place] #### HBCAB, RPR W RFX, HBSAG, HCV RX PCR, HBSAB, ALDOLASE #### [facility] , Automated epithelial cells c ount in urine sediment (number/area)Ordered By: Pa San on 03-17-2024 Epithelial cells Auto (Urine sed) [#/Area] None seen [HPF] 0-2 [facility] Automated monocyte %Ordered By: Pa San on 03-17-2024 Monocytes/100 WBC (Bld) 9.3 % Normal . [facility] Comment on above: Performed By: #### T SH3, PP, ESR, CBC, CMP, CK, ADDONUAPLUS, CRP, T4F #### [facility] [address] [place] [address] [place] #### HBCAB, RPR W RFX, HBSAG, HCV RX PCR, HBSAB, ALDOLASE #### [facility] , Automated neutrophil %Ordere d By: Pa Blackmanrow on 08-15-2024 Neutrophils/100 WBC (Bld) 62.7 % Normal . [facility] Comment on above: Performed By: #### T SH3, PP, ESR, CBC, CMP, CK, ADDONUAPLUS, CRP, T4F #### [facility] [address] [place] [address] [place] #### HBCAB, RPR W RFX, HBSAG, HCV RX PCR, HBSAB, ALDOLASE #### [facility] , Bacteria [Presence] in Urine by AutomatedOrdered By: Pa San on 03-17-2024 Bacteria Auto Ql (U) None seen [HPF] None Seen [facility] Bilirubin Test strip Ql (U)O rdered By: Pa San on 03-17-2024 Bilirubin Ql (U) Negative Negative [facility] Bilirubin.total [Mass/volume ] in Serum or PlasmaOrdered By: Pa San on 03-17-2024 Bilirubin [Mass/Vol] 0.4 mg/dL Normal 0.3-1.0 [facility] Comment on above: Performed By: #### T SH3, PP, ESR, CBC, CMP, CK, ADDONUAPLUS, CRP, T4F #### [facility] [address] [place] [address] [place] #### HBCAB, RPR W RFX, HBSAG, HCV RX PCR, HBSAB, ALDOLASE #### [facility] , C reactive protein [Mass/vol ume] in Serum or PlasmaOrdered By: Pa San on 03-17-2024 CRP [Mass/Vol] < 0.5 mg/dL 0.0-0.5 [facility] C-Reactive Proteinon 024 CRP [Mass/Vol] mg/L Normal 0.0-0.5 [facility] Comment on above: Performed By: #### T SH3, PP, ESR, CBC, CMP, CK, ADDONUAPLUS, CRP, T4F #### [facility] [address] [place] [address] [place] #### HBCAB, RPR W RFX, HBSAG, HCV RX PCR, HBSAB, ALDOLASE #### [facility] , Calcium [Mass/volume] in Ser um or PlasmaOrdered By: Pa San on 03-17-2024 Calcium [Mass/Vol] 9.1 mg/dL Normal 8.6-10.3 [facility] Comment on above: Performed By: #### T SH3, PP, ESR, CBC, CMP, CK, ADDONUAPLUS, CRP, T4F #### [facility] [address] [place] [address] #### HBCAB, RPR W RFX, HBSAG, HCV RX PCR, HBSAB, ALDOLASE #### [facility] , Carbon dioxide, total [Moles /volume] in Serum or PlasmaOrdered By: Pa San on 03-17-2024 CO2 [Moles/Vol] 26.0 mmol/L Normal 21.0-31.0 [facility] Comment on above: Performed By: #### T SH3, PP, ESR, CBC, CMP, CK, ADDONUAPLUS, CRP, T4F #### [facility] [address] [place] [address] [place] #### HBCAB, RPR W RFX, HBSAG, HCV RX PCR, HBSAB, ALDOLASE #### [facility] , Chloride [Moles/volume] in S caity or PlasmaOrdered By: Pa San on 03-17-2024 Chloride [Moles/Vol] 106 mmol/L Normal 98-107 [facility] Comment on above: Performed By: #### T SH3, PP, ESR, CBC, CMP, CK, ADDONUAPLUS, CRP, T4F #### [facility] [address] [place] [address] [place] #### HBCAB, RPR W RFX, HBSAG, HCV RX PCR, HBSAB, ALDOLASE #### [facility] , Chromatin Antibodyon 024 Chromatin Antibody <0.2 Normal 0.0-0.9 [facility] Comment on above: Result Comment: Perf ormed at: - [facility] [address] [id number] Knot Saw Operator: Mil Guzman PhD, Phone: [phone] PERFORMED BY: [place] [id number] PATHOLOGIST RAILROAD SWITCHMAN JOSE ROGERS M.D. Performed By: #### T SH3, PP, ESR, CBC, CMP, CK, ADDONUAPLUS, CRP, T4F #### [address] #### HBCAB, RPR W RFX, HBSAG, HCV RX PCR, HBSAB, ALDOLASE #### [facility] , Coagulation Profileon 2023 aPTT Coag (Bld) [Time] 34.1 s Normal 25.1-36.5 [facility] Comment on above: Result Comment: A he matocrit value greater than 55% may lead to inaccurate results in coagulation testing. Patients having hematocrit values >55% require a special collection tube for coagulation studies. Please contact the laboratory at [phone] for redraw instructions. PERFORMED BY: [place] [address] PATHOLOGIST RAILROAD SWITCHMAN JOSE ROGERS M.D. Performed By: #### T SH3, PP, ESR, CBC, CMP, CK, ADDONUAPLUS, CRP, T4F #### [address] #### HBCAB, RPR W RFX, HBSAG, HCV RX PCR, HBSAB, ALDOLASE #### [facility] , Color of Urine by AutoOrdere d By: Pa San on 03-17-2024 Color (U) Yellow Normal Yellow [facility] Comment on above: Order Comment: Name Collection Type:: Clean-Voided Midstream Performed By: #### T SH3, PP, ESR, CBC, CMP, CK, ADDONUAPLUS, CRP, T4F #### [address] #### HBCAB, RPR W RFX, HBSAG, HCV RX PCR, HBSAB, ALDOLASE #### [facility] , Complement C3on 03-17-2024 Complement C3 132 mg/dL Normal 82-167 [facility] Comment on above: Result Comment: Perf ormed at: [address] [id number] Knot Saw Operator: Mil Guzman PhD, Phone: [phone] Performed By: #### T SH3, PP, ESR, CBC, CMP, CK, ADDONUAPLUS, CRP, T4F #### [address] #### HBCAB, RPR W RFX, HBSAG, HCV RX PCR, HBSAB, ALDOLASE #### [facility] , Complement C4on 03-17-2024 Complement C4 26 mg/dL Normal 12-38 [facility] Comment on above: Performed By: #### T SH3, PP, ESR, CBC, CMP, CK, ADDONUAPLUS, CRP, T4F #### [address] #### HBCAB, RPR W RFX, HBSAG, HCV RX PCR, HBSAB, ALDOLASE #### [facility] , Complement Total (CH50)on Complement Total (CH50) >60 Normal >41 [facility] Comment on above: Result Comment: [...] determine out of range values. Performed at: [address] [id number] Knot Saw Operator: Mil Guzman PhD, Phone: [phone] PERFORMED BY: [place] [id number] PATHOLOGIST RAILROAD SWITCHMAN JOSE ROGERS M.D. Performed By: #### T SH3, PP, ESR, CBC, CMP, CK, ADDONUAPLUS, CRP, T4F #### [facility] [address] [place] [address] [place] #### HBCAB, RPR W RFX, HBSAG, HCV RX PCR, HBSAB, ALDOLASE #### [facility] , Complete Blood Count Auto Di ffon 03-17-2024 Mean Corpuscular HGB Conc 34.2 g/dL Normal 32.5-35.6 [facility] Comment on above: Performed By: #### T SH3, PP, ESR, CBC, CMP, CK, ADDONUAPLUS, CRP, T4F #### [place] [address] [place] #### HBCAB, RPR W RFX, HBSAG, HCV RX PCR, HBSAB, ALDOLASE #### [facility] , NRBC% 0.2 /100{WBC} Normal 0-0.5 [facility] Comment on above: Performed By: #### T SH3, PP, ESR, CBC, CMP, CK, ADDONUAPLUS, CRP, T4F #### [place] [address] [place] #### HBCAB, RPR W RFX, HBSAG, HCV RX PCR, HBSAB, ALDOLASE #### [facility] , Comprehensive Metabolic Pane solomon 03-17-2024 Albumin [Mass/Vol] 4.6 g/dL Normal 3.5-5.7 [facility] Comment on above: Performed By: #### T SH3, PP, ESR, CBC, CMP, CK, ADDONUAPLUS, CRP, T4F #### [place] [address] [place] #### HBCAB, RPR W RFX, HBSAG, HCV RX PCR, HBSAB, ALDOLASE #### [facility] , GFR/1.73 sq M.predicted MDRD (S/P/Bld) [Vol rate/Area] mL/min/{1.73_m2} Normal [facility] Comment on above: Performed By: #### T SH3, PP, ESR, CBC, CMP, CK, ADDONUAPLUS, CRP, T4F #### [facility] [address] [place] [address] #### HBCAB, RPR W RFX, HBSAG, HCV RX PCR, HBSAB, ALDOLASE #### [facility] , Creatine kinase [Enzymatic a ctivity/volume] in Serum or PlasmaOrdered By: Pa San on 03-17-2024 CK [Catalytic activity/Vol] 79 U/L Normal 30-223 [facility] Comment on above: Result Comment: PERF ORMED BY: [place] [address] PATHOLOGIST RAILROAD SWITCHMAN JOSE ROGERS M.D. Performed By: #### T SH3, PP, ESR, CBC, CMP, CK, ADDONUAPLUS, CRP, T4F #### [address] #### HBCAB, RPR W RFX, HBSAG, HCV RX PCR, HBSAB, ALDOLASE #### [facility] , Creatinine [Mass/volume] in Serum or PlasmaOrdered By: Pa San on 03-17-2024 Creatinine [Mass/Vol] 0.85 mg/dL Normal 0.70-1.30 [facility] Comment on above: Performed By: #### T SH3, PP, ESR, CBC, CMP, CK, ADDONUAPLUS, CRP, T4F #### [place] [address] [place] #### HBCAB, RPR W RFX, HBSAG, HCV RX PCR, HBSAB, ALDOLASE #### [facility] , Dipstick and Microscopicon 0 03-17-2024 Appearance (U) Clear Normal Clear [facility] Comment on above: Order Comment: Name Collection Type:: Clean-Voided Midstream Performed By: #### T SH3, PP, ESR, CBC, CMP, CK, ADDONUAPLUS, CRP, T4F #### [address] #### HBCAB, RPR W RFX, HBSAG, HCV RX PCR, HBSAB, ALDOLASE #### [facility] , Bacteria,Urine None Seen Normal None Seen [facility] Comment on above: Order Comment: Name Collection Type:: Clean-Voided Midstream Performed By: #### T SH3, PP, ESR, CBC, CMP, CK, ADDONUAPLUS, CRP, T4F #### [address] #### HBCAB, RPR W RFX, HBSAG, HCV RX PCR, HBSAB, ALDOLASE #### [facility] , Bilirubin,Urine Negative Normal Negative [facility] Comment on above: Order Comment: Name Collection Type:: Clean-Voided Midstream Performed By: #### T SH3, PP, ESR, CBC, CMP, CK, ADDONUAPLUS, CRP, T4F #### [address] #### HBCAB, RPR W RFX, HBSAG, HCV RX PCR, HBSAB, ALDOLASE #### [facility] , Glucose Ql (U) Normal Normal Normal [facility] Comment on above: Order Comment: Name Collection Type:: Clean-Voided Midstream Performed By: #### T SH3, PP, ESR, CBC, CMP, CK, ADDONUAPLUS, CRP, T4F #### [address] #### HBCAB, RPR W RFX, HBSAG, HCV RX PCR, HBSAB, ALDOLASE #### [facility] , Hyaline Casts,Urine None Seen Normal 0-8 [facility] Comment on above: Order Comment: Name Collection Type:: Clean-Voided Midstream Result Comment: PERF ORMED BY: [place] [id number] PATHOLOGIST RAILROAD SWITCHMAN JOSE ROGERS M.D. Performed By: #### T SH3, PP, ESR, CBC, CMP, CK, ADDONUAPLUS, CRP, T4F #### [place] [address] [place] #### HBCAB, RPR W RFX, HBSAG, HCV RX PCR, HBSAB, ALDOLASE #### [facility] , Ketones Ql (U) Negative Normal Negative [facility] Comment on above: Order Comment: Name Collection Type:: Clean-Voided Midstream Performed By: #### T SH3, PP, ESR, CBC, CMP, CK, ADDONUAPLUS, CRP, T4F #### [address] #### HBCAB, RPR W RFX, HBSAG, HCV RX PCR, HBSAB, ALDOLASE #### [facility] , Leukocyte esterase Test strip Ql (U) Negative Normal Negative [facility] Comment on above: Order Comment: Name Collection Type:: Clean-Voided Midstream Performed By: #### T SH3, PP, ESR, CBC, CMP, CK, ADDONUAPLUS, CRP, T4F #### [address] #### HBCAB, RPR W RFX, HBSAG, HCV RX PCR, HBSAB, ALDOLASE #### [facility] , Nitrite,Urine Negative Normal Negative [facility] Comment on above: Order Comment: Name Collection Type:: Clean-Voided Midstream Performed By: #### T SH3, PP, ESR, CBC, CMP, CK, ADDONUAPLUS, CRP, T4F #### [place] [address] [place] #### HBCAB, RPR W RFX, HBSAG, HCV RX PCR, HBSAB, ALDOLASE #### [facility] , Occult Blood,Urine Negative Normal Negative [facility] Comment on above: Order Comment: Name Collection Type:: Clean-Voided Midstream Performed By: #### T SH3, PP, ESR, CBC, CMP, CK, ADDONUAPLUS, CRP, T4F #### [place] [address] [place] #### HBCAB, RPR W RFX, HBSAG, HCV RX PCR, HBSAB, ALDOLASE #### [facility] , Protein,Urine Negative Normal Negative [facility] Comment on above: Order Comment: Name Collection Type:: Clean-Voided Midstream Performed By: #### T SH3, PP, ESR, CBC, CMP, CK, ADDONUAPLUS, CRP, T4F #### [address] #### HBCAB, RPR W RFX, HBSAG, HCV RX PCR, HBSAB, ALDOLASE #### [facility] , RBC LM.HPF (Urine sed) [#/Area] 0 /[HPF] Normal 0-4 [facility] Comment on above: Order Comment: Name Collection Type:: Clean-Voided Midstream Performed By: #### T SH3, PP, ESR, CBC, CMP, CK, ADDONUAPLUS, CRP, T4F #### [address] #### HBCAB, RPR W RFX, HBSAG, HCV RX PCR, HBSAB, ALDOLASE #### [facility] , Specificy [place],Urine 1.014 Normal 1.001-1.030 [facility] Comment on above: Order Comment: Name Collection Type:: Clean-Voided Midstream Performed By: #### T SH3, PP, ESR, CBC, CMP, CK, ADDONUAPLUS, CRP, T4F #### [address] #### HBCAB, RPR W RFX, HBSAG, HCV RX PCR, HBSAB, ALDOLASE #### [facility] , Squamous Epithelial Cell,Urine None Seen Normal 0-2 [facility] Comment on above: Order Comment: Name Collection Type:: Clean-Voided Midstream Performed By: #### T SH3, PP, ESR, CBC, CMP, CK, ADDONUAPLUS, CRP, T4F #### [address] #### HBCAB, RPR W RFX, HBSAG, HCV RX PCR, HBSAB, ALDOLASE #### [facility] , Urobilinogen,Urine Normal Normal Normal [facility] [facility] Comment on above: Order Comment: Name Collection Type:: Clean-Voided Midstream Performed By: #### T SH3, PP, ESR, CBC, CMP, CK, ADDONUAPLUS, CRP, T4F #### [address] #### HBCAB, RPR W RFX, HBSAG, HCV RX PCR, HBSAB, ALDOLASE #### [facility] , WBC,Urine None Seen Normal 0-4 [facility] Comment on above: Order Comment: Name Collection Type:: Clean-Voided Midstream Performed By: #### T SH3, PP, ESR, CBC, CMP, CK, ADDONUAPLUS, CRP, T4F #### [address] #### HBCAB, RPR W RFX, HBSAG, HCV RX PCR, HBSAB, ALDOLASE #### [facility] , Erythrocyte Sedimentation Ra elijah 03-17-2024 ESR (Bld) [Velocity] 32 mm/h High 0-19 [facility] Comment on above: Result Comment: PERF ORMED BY: [place] [address] PATHOLOGIST RAILROAD SWITCHMAN JOSE ROGERS M.D. Performed By: #### T SH3, PP, ESR, CBC, CMP, CK, ADDONUAPLUS, CRP, T4F #### [address] #### HBCAB, RPR W RFX, HBSAG, HCV RX PCR, HBSAB, ALDOLASE #### [facility] , Erythrocyte distribution wid th [Ratio] by Automated countOrdered By: Pa San on 03-17-2024 Erythrocyte distribution width (RBC) [Ratio] 13.5 % Normal 12.0-14.8 [facility] Comment on above: Performed By: #### T SH3, PP, ESR, CBC, CMP, CK, ADDONUAPLUS, CRP, T4F #### [facility] [address] [place] [address] #### HBCAB, RPR W RFX, HBSAG, HCV RX PCR, HBSAB, ALDOLASE #### [facility] , Erythrocyte sedimentation ra te by Photometric methodOrdered By: Pa San on 03-17-2024 ESR Photometric method (Bld) [Velocity] 32 mm/hr High 0-19 [facility] Erythrocytes [#/area] in Uri ne sediment by Automated countOrdered By: Pa San on 03-17-2024 RBC Auto (Urine sed) [#/Area] 0-1 [HPF] 0-4 [facility] Erythrocytes [#/volume] in B lood by Automated countOrdered By: Pa San on 03-17-2024 RBC (Bld) [#/Vol] 4.88 10*6/uL Normal 3.90-5.60 [facility] Comment on above: Performed By: #### T SH3, PP, ESR, CBC, CMP, CK, ADDONUAPLUS, CRP, T4F #### [address] #### HBCAB, RPR W RFX, HBSAG, [...] the diagnosis of Diabetes Mellitus. Result Comment: [place] om Glucose Reference Range is dependent on time and content of last meal. Glucose of more than 200 mg/dL in a nonstressed, ambulatory subject supports the diagnosis of Diabetes Mellitus. ADA recommended reference range Performed By: #### T SH3, PP, ESR, CBC, CMP, CK, ADDONUAPLUS, CRP, T4F #### [facility] [address] [place] [address] #### HBCAB, RPR W RFX, HBSAG, HCV RX PCR, HBSAB, ALDOLASE #### [facility] , Hematocrit [Volume Fraction] of Blood by Automated countOrdered By: Pa San on 03-17-2024 Hematocrit (Bld) [Volume fraction] 46.7 % Normal 38.8-50.0 [facility] Comment on above: Performed By: #### T SH3, PP, ESR, CBC, CMP, CK, ADDONUAPLUS, CRP, T4F #### [address] #### HBCAB, RPR W RFX, HBSAG, HCV RX PCR, HBSAB, ALDOLASE #### [facility] , Hemoglobin [Mass/volume] in BloodOrdered By: Pa San on 03-17-2024 Hemoglobin (Bld) [Mass/Vol] 16.0 g/dL Normal 13.0-17.0 [facility] Comment on above: Performed By: #### T SH3, PP, ESR, CBC, CMP, CK, ADDONUAPLUS, CRP, T4F #### [address] #### HBCAB, RPR W RFX, HBSAG, HCV RX PCR, HBSAB, ALDOLASE #### [facility] , Hep C Ab wRfx to Qnt PCRon 0 03-17-2024 Hepatitis C Virus Antibody Non-Reactive Normal Non Reactive [facility] Comment on above: Performed By: #### T SH3, PP, ESR, CBC, CMP, CK, ADDONUAPLUS, CRP, T4F #### [facility] [address] [place] [address] #### HBCAB, RPR W RFX, HBSAG, HCV RX PCR, HBSAB, ALDOLASE #### [facility] , Interpretation Hepatitis C Comment Normal . [facility] Comment on above: Result Comment: Not infected with HCV unless early or acute infection is suspected (which may be delayed in an immunocompromised individual), or other evidence exists to indicate HCV infection. Performed By: #### T SH3, PP, ESR, CBC, CMP, CK, ADDONUAPLUS, CRP, T4F #### [address] #### HBCAB, RPR W RFX, HBSAG, HCV RX PCR, HBSAB, ALDOLASE #### [facility] , Hepatitis B Core Antibodyon 03-17-2024 Hepatitis B Core Antibody Negative Normal Negative [facility] Comment on above: Result Comment: Perf ormed at: [facility] [id number] Knot Saw Operator: Mil Guzman PhD, Phone: [phone] Performed By: #### T SH3, PP, ESR, CBC, CMP, CK, ADDONUAPLUS, CRP, T4F #### [address] #### HBCAB, RPR W RFX, HBSAG, HCV RX PCR, HBSAB, ALDOLASE #### [facility] , Hepatitis B Surface Antibody on 03-17-2024 Hepatitis B Surface Antibody Non-Reactive Normal . [facility] Comment on above: Result Comment: Non Reactive: Inconsistent with immunity, less than 10 mIU/mL Reactive: Consistent with immunity, greater than 9.9 mIU/mL Performed By: #### T SH3, PP, ESR, CBC, CMP, CK, ADDONUAPLUS, CRP, T4F #### [address] #### HBCAB, RPR W RFX, HBSAG, HCV RX PCR, HBSAB, ALDOLASE #### [facility] , Hepatitis B Surface Antigeno n 03-17-2024 HBsAg Screen Negative Normal Negative [facility] Comment on above: Result Comment: PERF ORMED BY: [place] [address] PATHOLOGIST RAILROAD SWITCHMAN JOSE ROGERS M.D. Performed By: #### T SH3, PP, ESR, CBC, CMP, CK, ADDONUAPLUS, CRP, T4F #### [facility] [address] [place] [address] [place] #### HBCAB, RPR W RFX, HBSAG, HCV RX PCR, HBSAB, ALDOLASE #### [facility] , INR in Platelet poor plasma by Coagulation assayOrdered By: Pa San on 03-17-2024 INR Coag (PPP) [Relative time] 1.0 {INR} Normal [facility] Comment on above: INR Therapeutic Rang [...] CBC, CMP, CK, ADDONUAPLUS, CRP, T4F #### [facility] [address] [place] [address] [place] #### HBCAB, RPR W RFX, HBSAG, HCV RX PCR, HBSAB, ALDOLASE #### [facility] , Ketones Auto test strip (U) [Mass/Vol]Ordered By: Pa San on 03-17-2024 Ketones (U) [Mass/Vol] Negative Negative [facility] - UrinalysisOrder ed By: Pa San on 03-17-2024 Hyaline casts LM Ql (Urine sed) None seen [LPF] 0-8 [facility] Leukocytes [#/area] in Urine sediment by Automated countOrdered By: Pa San on 03-17-2024 WBC Auto (Urine sed) [#/Area] None seen [HPF] 0-4 [facility] Leukocytes [#/volume] correc ameya for nucleated erythrocytes in Blood by Automated counOrdered By: Pa San on 03-17-2024 WBC corrected for nucl RBC Auto (Bld) [#/Vol] 6.5 10*3/uL 4.1-10.5 [facility] Leukocytes [#/volume] in Blo od by Automated countOrdered By: Pa San on 03-17-2024 WBC (Bld) [#/Vol] 6.5 10*3/uL Normal 4.1-10.5 [facility] Comment on above: Performed By: #### T SH3, PP, ESR, CBC, CMP, CK, ADDONUAPLUS, CRP, T4F #### [facility] [address] [place] [address] [place] #### HBCAB, RPR W RFX, HBSAG, HCV RX PCR, HBSAB, ALDOLASE #### [facility] , Lupus Anticoagulant Compon 0 03-17-2024 Dilute Prothrombin Time (dPt) 35.0 Normal 0.0-47.6 [facility] Comment on above: Performed By: #### T SH3, PP, ESR, CBC, CMP, CK, ADDONUAPLUS, CRP, T4F #### [facility] [address] [place] [address] [place] #### HBCAB, RPR W RFX, HBSAG, HCV RX PCR, HBSAB, ALDOLASE #### [facility] , dPT Confirm Ratio 1.04 Normal 0.00-1.34 [facility] Comment on above: Performed By: #### T SH3, PP, ESR, CBC, CMP, CK, ADDONUAPLUS, CRP, T4F #### [facility] [address] [place] [address] [place] #### HBCAB, RPR W RFX, HBSAG, HCV RX PCR, HBSAB, ALDOLASE #### [facility] , DRVVT Lupus 31.6 Normal 0.0-47.0 [facility] Comment on above: Performed By: #### T SH3, PP, ESR, CBC, CMP, CK, ADDONUAPLUS, CRP, T4F #### [address] #### HBCAB, RPR W RFX, HBSAG, HCV RX PCR, HBSAB, ALDOLASE #### [facility] , Interpretation Comment: Normal . [facility] Comment on above: Result Comment: No l upus anticoagulant was detected. Performed at: - [facility] [id number] Knot Saw Operator: Elvira Barajas MD, Phone: [phone] PERFORMED BY: [place] [address] PATHOLOGIST RAILROAD SWITCHMAN JOSE ROGERS M.D. Performed By: #### T SH3, PP, ESR, CBC, CMP, CK, ADDONUAPLUS, CRP, T4F #### [address] #### HBCAB, RPR W RFX, HBSAG, HCV RX PCR, HBSAB, ALDOLASE #### [facility] , PTT-LA 37.6 Normal 0.0-43.5 [facility] Comment on above: Performed By: #### T SH3, PP, ESR, CBC, CMP, CK, ADDONUAPLUS, CRP, T4F #### [address] #### HBCAB, RPR W RFX, HBSAG, HCV RX PCR, HBSAB, ALDOLASE #### [facility] , Thrombin Time 17.0 Normal 0.0-23.0 [facility] Comment on above: Performed By: #### T SH3, PP, ESR, CBC, CMP, CK, ADDONUAPLUS, CRP, T4F #### [place] [address] [place] #### HBCAB, RPR W RFX, HBSAG, HCV RX PCR, HBSAB, ALDOLASE #### [facility] , Lymphocytes [#/volume] in Bl ood by Automated countOrdered By: Pa Blackmanrow on 03-17-2024 Lymphocytes (Bld) [#/Vol] 1.6 10*3/uL Normal 1.00-4.8 [facility] Comment on above: Performed By: #### T SH3, PP, ESR, CBC, CMP, CK, ADDONUAPLUS, CRP, T4F #### [facility] [address] [place] [address] #### HBCAB, RPR W RFX, HBSAG, HCV RX PCR, HBSAB, ALDOLASE #### [facility] , Lymphocytes/100 leukocytes i n Blood by Automated countOrdered By: Pa San on 03-17-2024 Lymphocytes/100 WBC (Bld) 24.5 % Normal . [facility] Comment on above: Performed By: #### T SH3, PP, ESR, CBC, CMP, CK, ADDONUAPLUS, CRP, T4F #### [place] [address] [place] #### HBCAB, RPR W RFX, HBSAG, HCV RX PCR, HBSAB, ALDOLASE #### [facility] , MCH [Entitic mass] by Automa ameya countOrdered By: Pa San on 03-17-2024 MCH (RBC) [Entitic mass] 32.7 pg Normal 27.5-35.2 [facility] Comment on above: Performed By: #### T SH3, PP, ESR, CBC, CMP, CK, ADDONUAPLUS, CRP, T4F #### [place] [address] [place] #### HBCAB, RPR W RFX, HBSAG, HCV RX PCR, HBSAB, ALDOLASE #### [facility] , MCHC Auto (RBC) [Mass/Vol]Or dered By: Pa San on 03-17-2024 MCHC (RBC) [Mass/Vol] 34.2 g/dL 32.5-35.6 [facility] MCV [Entitic volume] by Auto mated countOrdered By: Pa San on 03-17-2024 MCV (RBC) [Entitic vol] 95.7 fL Normal 83.5-101 [facility] Comment on above: Performed By: #### T SH3, PP, ESR, CBC, CMP, CK, ADDONUAPLUS, CRP, T4F #### [facility] [address] [place] [address] [place] #### HBCAB, RPR W RFX, HBSAG, HCV RX PCR, HBSAB, ALDOLASE #### [facility] , Neutrophils [#/volume] in Bl ood by Automated countOrdered By: Pa San on 03-17-2024 Neutrophils (Bld) [#/Vol] 4.1 10*3/uL Normal 1.8-7.7 [facility] Comment on above: Performed By: #### T SH3, PP, ESR, CBC, CMP, CK, ADDONUAPLUS, CRP, T4F #### [facility] [address] [place] [address] [place] #### HBCAB, RPR W RFX, HBSAG, HCV RX PCR, HBSAB, ALDOLASE #### [facility] , Nitrite Test strip Ql (U)Ord ered By: Pa San on 03-17-2024 Nitrite Ql (U) Negative Negative [facility] No Panel InformationOrdered By: Pa San on 03-17-2024 Estimated GFR (CKD-EPI) > 60.0 mL/Min [facility] Creatinine Clearance (Chem N/A [facility] Nucleated erythrocytes [Pres ence] in Blood by Automated countOrdered By: Pa San on 03-17-2024 Nucleated RBC Auto Ql (Bld) 0.2 /100{WBC} 0-0.5 [facility] Platelet mean volume [Entiti c volume] in Blood by Automated countOrdered By: Pa San on 03-17-2024 Platelet mean volume (Bld) [Entitic vol] 8.9 fL Normal 6.6-10.1 [facility] Comment on above: Performed By: #### T SH3, PP, ESR, CBC, CMP, CK, ADDONUAPLUS, CRP, T4F #### [facility] [address] [place] [address] [place] #### HBCAB, RPR W RFX, HBSAG, HCV RX PCR, HBSAB, ALDOLASE #### [facility] , Platelets [#/volume] in Bloo d by Automated countOrdered By: Pa San on 03-17-2024 Platelets (Bld) [#/Vol] 258 10*3/uL Normal 150-450 [facility] Comment on above: Performed By: #### T SH3, PP, ESR, CBC, CMP, CK, ADDONUAPLUS, CRP, T4F #### [facility] [address] [place] [address] #### HBCAB, RPR W RFX, HBSAG, HCV RX PCR, HBSAB, ALDOLASE #### [facility] , Potassium [Moles/volume] in Serum or PlasmaOrdered By: Pa San on 03-17-2024 Potassium [Moles/Vol] 4.8 mmol/L Normal 3.5-5.1 [facility] Comment on above: Performed By: #### T SH3, PP, ESR, CBC, CMP, CK, ADDONUAPLUS, CRP, T4F #### [facility] [address] [place] [address] [place] #### HBCAB, RPR W RFX, HBSAG, HCV RX PCR, HBSAB, ALDOLASE #### [facility] , Protein Auto test strip (U) [Mass/Vol]Ordered By: Pa San on 03-17-2024 Protein (U) [Mass/Vol] Negative Negative [facility] Protein [Mass/volume] in Ser um or PlasmaOrdered By: Pa San on 03-17-2024 Protein [Mass/Vol] 7.6 g/dL Normal 6.4-8.9 [facility] Comment on above: Performed By: #### T SH3, PP, ESR, CBC, CMP, CK, ADDONUAPLUS, CRP, T4F #### [facility] [address] [place] [address] #### HBCAB, RPR W RFX, HBSAG, HCV RX PCR, HBSAB, ALDOLASE #### [facility] , Prothrombin time (PT)Ordered By: Pa San on 03-17-2024 PT Coag (PPP) [Time] 11.3 s Normal 9.0-12.9 [facility] Comment on above: A hematocrit value g reater than 55% may lead to inaccurate results in coagulation testing. Patients having hematocrit values >55% require a special collection tube for coagulation studies. Please contact the laboratory at [phone] for redraw instructions. Result Comment: A he matocrit value greater than 55% may lead to inaccurate results in coagulation testing. Patients having hematocrit values >55% require a special collection tube for coagulation studies. Please contact the laboratory at [phone] for redraw instructions. Performed By: #### T SH3, PP, ESR, CBC, CMP, CK, ADDONUAPLUS, CRP, T4F #### [place] [id number] [facility] #### HBCAB, RPR W RFX, HBSAG, HCV RX PCR, HBSAB, ALDOLASE #### [facility] , RPR w/rfx to Quant TP Abson 03-17-2024 RPR, Rfx Quant RPR Non-Reactive Normal Non Reactive [facility] Comment on above: Result Comment: Perf ormed at: CB - [facility] [address] [id number] Knot Saw Operator: Mil Guzman PhD, Phone: [phone] PERFORMED BY: [place] [address] PATHOLOGIST RAILROAD SWITCHMAN JOSE ROGERS M.D. Performed By: #### T SH3, PP, ESR, CBC, CMP, CK, ADDONUAPLUS, CRP, T4F #### [place] [address] [place] #### HBCAB, RPR W RFX, HBSAG, HCV RX PCR, HBSAB, ALDOLASE #### [facility] , Serum globulin measurement b y calculation (mass/volume)Ordered By: Pa San on 03-17-2024 Globulin (S) [Mass/Vol] 3.0 g/dL [facility] Comment on above: Performed By: #### T SH3, PP, ESR, CBC, CMP, CK, ADDONUAPLUS, CRP, T4F #### [facility] [address] [place] [address] #### HBCAB, RPR W RFX, HBSAG, HCV RX PCR, HBSAB, ALDOLASE #### [facility] , Serum or plasma albumin/glob ulin mass ratioOrdered By: Pa Blackmanrow on 03-17-2024 Albumin/Globulin [Mass ratio] 1.5 {ratio} [facility] Comment on above: Performed By: #### T SH3, PP, ESR, CBC, CMP, CK, ADDONUAPLUS, CRP, T4F #### [address] #### HBCAB, RPR W RFX, HBSAG, HCV RX PCR, HBSAB, ALDOLASE #### [facility] , Serum or plasma anion gap de terminationOrdered By: Pa Mena on 03-17-2024 Anion gap [Moles/Vol] 12.8 mmol/L Normal 6.0-15.0 [facility] Comment on above: Performed By: #### T SH3, PP, ESR, CBC, CMP, CK, ADDONUAPLUS, CRP, T4F #### [facility] [address] [place] [address] [place] #### HBCAB, RPR W RFX, HBSAG, HCV RX PCR, HBSAB, ALDOLASE #### [facility] , Sodium [Moles/volume] in Ser um or PlasmaOrdered By: Pa San on 03-17-2024 Sodium [Moles/Vol] 140 mmol/L Normal 136-145 [facility] Comment on above: Performed By: #### T SH3, PP, ESR, CBC, CMP, CK, ADDONUAPLUS, CRP, T4F #### [facility] [address] [place] [address] #### HBCAB, RPR W RFX, HBSAG, HCV RX PCR, HBSAB, ALDOLASE #### [facility] , Specific gravity Auto test s trip (U) [Rel density]Ordered By: Pa San on 03-17-2024 Specific gravity (U) [Rel density] 1.014 1.001-1.030 [facility] Thyroid Peroxidase Antibodie son 03-17-2024 Thyroid Peroxidase Antibodies <9 Normal 0-34 [facility] Comment on above: Result Comment: Perf ormed at: [address] [id number] Knot Saw Operator: Mil Guzman PhD, Phone: [phone] Performed By: #### T SH3, PP, ESR, CBC, CMP, CK, ADDONUAPLUS, CRP, T4F #### [address] #### HBCAB, RPR W RFX, HBSAG, HCV RX PCR, HBSAB, ALDOLASE #### [facility] , Thyrotropin [Units/volume] i n Serum or PlasmaOrdered By: Pa San on 03-17-2024 TSH Qn 3.54 m[IU]/L Normal 0.45-5.33 [facility] Comment on above: Result Comment: PERF ORMED BY: [place] [address] PATHOLOGIST RAILROAD SWITCHMAN JOSE ROGERS M.D. Performed By: #### T SH3, PP, ESR, CBC, CMP, CK, ADDONUAPLUS, CRP, T4F #### [facility] [address] [place] [address] #### HBCAB, RPR W RFX, HBSAG, HCV RX PCR, HBSAB, ALDOLASE #### [facility] , Thyroxine (T4) free [Mass/vo lume] in Serum or PlasmaOrdered By: Pa San on 03-17-2024 Free T4 [Mass/Vol] 0.78 ng/dL Normal 0.61-1.12 [facility] Comment on above: Performed By: #### T SH3, PP, ESR, CBC, CMP, CK, ADDONUAPLUS, CRP, T4F #### [facility] [address] [place] [address] #### HBCAB, RPR W RFX, HBSAG, HCV RX PCR, HBSAB, ALDOLASE #### [facility] , Urea nitrogen [Mass/volume] in Serum or PlasmaOrdered By: Pa San on 03-17-2024 Urea nitrogen [Mass/Vol] 11 mg/dL Normal 7-25 [facility] Comment on above: Performed By: #### T SH3, PP, ESR, CBC, CMP, CK, ADDONUAPLUS, CRP, T4F #### [facility] [address] [place] [address] [place] #### HBCAB, RPR W RFX, HBSAG, HCV RX PCR, HBSAB, ALDOLASE #### [facility] , Urine clarity by refractomet ry automatedOrdered By: Pa San on 03-17-2024 Clarity Refractometry automated (U) Clear Clear [facility] Urine glucose measurement by automated test strip (mass/volume)Ordered By: Pa San on 03-17-2024 Glucose Auto test strip (U) [Mass/Vol] Normal mg/dL Normal [facility] Urine hemoglobin detection b y automated test stripOrdered By: Pa San on 03-17-2024 Hemoglobin Auto test strip Ql (U) Negative Negative [facility] Urine leukocyte esterase det ection by automated test stripOrdered By: Pa San on 03-17-2024 Leukocyte esterase Auto test strip Ql (U) Negative Negative [facility] Urine pH measurement by auto mated test stripOrdered By: Pa San on 03-17-2024 pH (U) 5.5 [pH] Normal 5.0-9.0 [facility] Comment on above: Order Comment: Name Collection Type:: Clean-Voided Midstream Performed By: #### T SH3, PP, ESR, CBC, CMP, CK, ADDONUAPLUS, CRP, T4F #### [facility] [address] #### HBCAB, RPR W RFX, HBSAG, HCV RX PCR, HBSAB, ALDOLASE #### [facility] , Urobilinogen Auto test strip (U) [Mass/Vol]Ordered By: Pa San on 03-17-2024 Urobilinogen (U) [Mass/Vol] Normal mg/dL Normal [facility] Lipid 1996 panelon Cholesterol [Mass/Vol] 179 mg/dL Normal 150-200 [facility] Comment on above: Performed By: #### C BCA, 23926-3, 49650-0, CMP, 3084-1, HA1C, 96327-1, 17571-5, 5130-0, 21050-4, 04063-4, 39722-9 #### [facility] ([id number]) [address], [address] [place] [address] Cholesterol in HDL [Mass/Vol] 55 mg/dL Normal >39 [facility] Comment on above: Result Comment: HDL <40 mg/dL - High Risk HDL > or = 40mg/dL- Desirable HDL >60 mg/dL - Negative Risk Performed By: #### C BCA, 89978-1, 72560-7, CMP, 3084-1, HA1C, 80024-4, 20127-8, 5130-0, 25154-0, 75267-1, 24108-2 #### [facility] ([id number]) [address], [address] [place] [address] Cholesterol in LDL [Mass/Vol] 107 mg/dL Normal <130 [facility] Comment on above: Result Comment: LDL <100 mg/dL - Desirable LDL >160 mg/dL - High Risk Performed By: #### C BCA, 62646-8, 76849-5, CMP, 3084-1, HA1C, 50454-5, 56028-9, 5130-0, 84431-7, 02841-1, 89623-0 #### [facility] ([id number]) [address], [address] [place] [address] Cholesterol in VLDL [Mass/Vol] 17 mg/dL Normal 0-30 [facility] Comment on above: Performed By: #### C BCA, 70726-2, 82974-1, CMP, 3084-1, HA1C, 63600-4, 10796-6, 5130-0, 94651-2, 85621-3, 38658-3 #### [facility] ([id number]) [address], [address] [place] [address] CHOLESTEROL:HDL 3.3 Normal 1.0-5.0 [facility] Comment on above: Performed By: #### C BCA, 04669-9, 86689-6, CMP, 3084-1, HA1C, 90841-8, 61365-7, 5130-0, 35914-1, 10025-6, 37289-7 #### [facility] ([id number]) [address], [address] [place] [address] Triglyceride [Mass/Vol] 87 mg/dL Normal 27-150 [facility] Comment on above: Performed By: #### C BCA, 56090-2, 40074-0, CMP, 3084-1, HA1C, 74228-7, 05103-1, 5130-0, 34128-4, 48235-3, 75019-9 #### [facility] ([id number]) [address], [address] [place] [address] Prostate specific Ag [Mass/V ol]on 02-01-2024 PSA SCREEN 0.57 ng/mL Normal 0.00-4.00 [facility] Comment on above: Result Comment: The method used for this test is [employer] DXI chemiluminescent immunoassay. Values obtained by different assay methods cannot be used interchangeably. Performed By: #### C BCA, 91119-7, 98403-3, CMP, 3084-1, HA1C, 04456-2, 50637-1, 5130-0, 20430-7, 37944-2, 79301-5 #### [facility] ([id number]) [address] [facility] [address], [address] [address] CBC AND AUTO DIFFon 12-30-19 24 ABSOLUTE BASOPHIL 0.1 X10E9/L Normal 0.0-0.2 [facility] Comment on above: Performed By: #### C BCA, 91445-0, 29120-4, CMP, 3084-1, HA1C, 85530-7, 11477-4, 5130-0, 98122-2, 72733-2, 65395-3 #### [facility] ([id number]) [address], [address] [place] [address] ABSOLUTE NEUTROPHIL 3.7 X10E9/L Normal 1.5-6.6 [facility] Comment on above: Performed By: #### C BCA, 33443-2, 67662-0, CMP, 3084-1, HA1C, 73978-0, 17980-2, 5130-0, 91666-5, 28604-6, 65245-2 #### [facility] ([id number]) [address], [address] [place] [address] Basophils/100 WBC (Bld) 1.0 % Normal [facility] Comment on above: Performed By: #### C BCA, 07633-7, 68644-6, CMP, 3084-1, HA1C, 60506-3, 47053-7, 5130-0, 97453-2, 44080-1, 71084-6 #### [facility] ([id number]) [address] [facility], [address] [place] [address] Eosinophils (Bld) [#/Vol] 0.1 10*3/uL Normal 0.0-0.4 [facility] Comment on above: Performed By: #### C BCA, 78476-6, 27941-4, CMP, 3084-1, HA1C, 71116-3, 31479-6, 5130-0, 08957-6, 72821-6, 01766-3 #### [facility] ([id number]) [address] [facility], [address] [place] [address] Eosinophils/100 WBC (Bld) 2.3 % Normal [facility] Comment on above: Performed By: #### C BCA, 02214-2, 09122-5, CMP, 3084-1, HA1C, 01015-0, 42345-8, 5130-0, 37200-7, 53355-8, 31817-0 #### [facility] ([id number]) [address] [facility], [address] [place] [address] Erythrocyte distribution width (RBC) [Ratio] 14.1 % Normal 11.5-15.0 [facility] Comment on above: Performed By: #### C BCA, 29841-6, 25670-9, CMP, 3084-1, HA1C, 89494-3, 50336-1, 5130-0, 29271-5, 84086-9, 14476-0 #### [facility] ([id number]) [address], [address] [place] [address] Hematocrit (Bld) [Volume fraction] 46.5 % Normal 39-49 [facility] Comment on above: Performed By: #### C BCA, 13937-8, 32027-6, CMP, 3084-1, HA1C, 96288-9, 72111-7, 5130-0, 20597-1, 13017-9, 52192-6 #### [facility] ([id number]) [address], [address] [place] [address] Hemoglobin (Bld) [Mass/Vol] 15.8 g/dL Normal 13.0-17.0 [facility] Comment on above: Performed By: #### C BCA, 97666-7, 67887-8, CMP, 3084-1, HA1C, 23498-7, 43761-7, 5130-0, 61481-3, 59345-7, 29898-7 #### [facility] ([id number]) [address] [facility], [address] [place] [address] Lymphocytes (Bld) [#/Vol] 1.5 10*3/uL Normal 1.0-3.5 [facility] Comment on above: Performed By: #### C BCA, 64143-9, 67475-3, CMP, 3084-1, HA1C, 01279-2, 02656-3, 5130-0, 35825-2, 11315-6, 28420-4 #### [facility] ([id number]) [address], [address] [place] [address] Lymphocytes/100 WBC (Bld) 25.1 % Normal [facility] Comment on above: Performed By: #### C BCA, 66896-2, 05539-0, CMP, 3084-1, HA1C, 94615-7, 98593-4, 5130-0, 83598-2, 63347-2, 48990-5 #### [facility] ([id number]) [address], [address] [place] [address] MCH (RBC) [Entitic mass] 32.2 pg Normal 27-34 [facility] Comment on above: Performed By: #### C BCA, 56821-2, 95115-9, CMP, 3084-1, HA1C, 99954-4, 82742-2, 5130-0, 98749-2, 57030-0, 83972-0 #### [facility] ([id number]) [address], [address] [place] [address] MCHC (RBC) [Mass/Vol] 33.9 g/dL Normal 32-36 [facility] Comment on above: Performed By: #### C BCA, 63129-5, 45320-9, CMP, 3084-1, HA1C, 27101-8, 35928-9, 5130-0, 39281-2, 63012-7, 12698-9 #### [facility] ([id number]) [address] [place] [address], [address] [place] [address] MCV (RBC) [Entitic vol] 95 fL Normal 80-100 [facility] Comment on above: Performed By: #### C BCA, 54494-2, 09787-6, CMP, 3084-1, HA1C, 07570-0, 05848-3, 5130-0, 56201-2, 09257-0, 69003-1 #### [facility] ([id number]) [address], [address] [place] [address] Monocytes (Bld) [#/Vol] 0.4 10*3/uL Normal 0-0.9 [facility] Comment on above: Performed By: #### C BCA, 96290-8, 82334-7, CMP, 3084-1, HA1C, 46868-8, 60604-9, 5130-0, 36239-0, 70899-3, 56676-1 #### [facility] ([id number]) [address] [place] [address], [address] [place] [address] Monocytes/100 WBC (Bld) 7.6 % Normal [facility] Comment on above: Performed By: #### C BCA, 70411-9, 84346-3, CMP, 3084-1, HA1C, 76336-2, 34558-1, 5130-0, 03603-2, 88260-5, 95202-3 #### [facility] ([id number]) [address], [address] [place] [address] Neutrophils/100 WBC (Bld) 64.0 % Normal [facility] Comment on above: Performed By: #### C GARRY, 85449-2, 31490-7, CMP, 3084-1, HA1C, 38243-9, 42201-7, 5130-0, 49827-6, 55525-9, 69160-4 #### [facility] ([id number]) [address], [address] [place] [address] Platelet mean volume (Bld) [Entitic vol] 8.8 fL Normal 7-12 [facility] Comment on above: Performed By: #### C GARRY, 63332-6, 28361-8, CMP, 3084-1, HA1C, 01796-5, 13765-7, 5130-0, 90086-7, 25706-9, 57129-0 #### [facility] ([id number]) [address], [address] [place] [address] Platelets (Bld) [#/Vol] 265 10*3/uL Normal 150-450 [facility] Comment on above: Performed By: #### C GARRY, 12855-0, 24030-9, CMP, 3084-1, HA1C, 16987-9, 99395-8, 5130-0, 02965-7, 50554-8, 33839-1 #### [facility] ([id number]) [address], [address] [place] [address] RBC COUNT 4.90 X10E12/L Normal 4.10-5.70 [facility] Comment on above: Performed By: #### C BCA, 02377-3, 92467-4, CMP, 3084-1, HA1C, 06518-6, 32964-7, 5130-0, 81466-2, 20737-7, 32749-2 #### [facility] ([id number]) [address], [address] [place] [address] WBC (Bld) [#/Vol] 5.8 10*3/uL Normal 4.0-11.0 [facility] Comment on above: Performed By: #### C BCA, 54673-0, 14504-7, CMP, 3084-1, HA1C, 21346-5, 07449-6, 5130-0, 65344-9, 65608-8, 80714-7 #### [facility] ([id number]) [address], [address] [place] [address] CBC auto differentialon 05-2 Basophils (Bld) [#/Vol] 0.1 10*3/uL [facility] Basophils/100 WBC (Bld) 1.0 % [facility] Eosinophils (Bld) [#/Vol] 0.1 10*3/uL [facility] Eosinophils/100 WBC (Bld) 2.3 % [facility] Erythrocyte distribution width (RBC) [Ratio] 14.1 % 11.5 - 15.0 % [facility] Hematocrit (Bld) [Volume fraction] 46.5 % 39 - 49 % [facility] Hemoglobin (Bld) [Mass/Vol] 15.8 g/dL 13.0 - 17.0 g/dL [facility] Lymphocytes (Bld) [#/Vol] 1.5 10*3/uL [facility] Lymphocytes/100 WBC (Bld) 25.1 % [facility] MCH (RBC) [Entitic mass] 32.2 pg 27 - 34 pg [facility] MCHC (RBC) [Mass/Vol] 33.9 g/dL 32 - 3 6 g/dL [facility] MCV (RBC) [Entitic vol] 95 fL 80 - 100 fL [facility] Monocytes (Bld) [#/Vol] 0.4 10*3/uL [facility] Monocytes/100 WBC (Bld) 7.6 % [facility] Neutrophils (Bld) [#/Vol] 3.7 10*3/uL [facility] Neutrophils/100 WBC (Bld) 64.0 % [facility] Platelet mean volume (Bld) [Entitic vol] 8.8 fL 7 - 12 fL [facility] Platelets (Bld) [#/Vol] 265 10*3/uL [facility] RBC (Bld) [#/Vol] 4.90 10*6/uL [facility] WBC corrected for nucl RBC Auto (Bld) [#/Vol] 5.[address] [facility] COMPREHENSIVE METABOLIC PANE Solomon 12-30-2023 Albumin [Mass/Vol] 4.3 g/dL Normal 3.2-5.3 [facility] Comment on above: Performed By: #### C BCA, 00760-0, 47534-4, CMP, 3084-1, HA1C, 66345-1, 88247-3, 5130-0, 70340-8, 38986-2, 97772-7 #### [facility] ([id number]) [address], [address] [place] [address] ALP [Catalytic activity/Vol] 73 U/L Normal 39-130 [facility] Comment on above: Performed By: #### C BCA, 86297-7, 92633-2, CMP, 3084-1, HA1C, 57648-4, 91928-3, 5130-0, 56951-2, 96633-7, 51895-4 #### [facility] ([id number]) [address], [address] [place] [address] ALT [Catalytic activity/Vol] 49 U/L High 0-40 [facility] Comment on above: Performed By: #### C BCA, 59460-6, 59875-4, CMP, 3084-1, HA1C, 82870-6, 65785-7, 5130-0, 48984-3, 46002-8, 50008-0 #### [facility] ([id number]) [address], [address] [place] [address] Anion gap [Moles/Vol] 11 mmol/L Normal 5-15 [facility] Comment on above: Performed By: #### C BCA, 25280-8, 67499-2, CMP, 3084-1, HA1C, 79922-6, 89682-4, 5130-0, 70578-5, 25092-7, 20632-1 #### [facility] ([id number]) [address] [facility] [facility], [address] [place] [address] AST [Catalytic activity/Vol] 38 U/L Normal 0-41 [facility] Comment on above: Performed By: #### C BCA, 86626-9, 75244-6, CMP, 3084-1, HA1C, 85796-9, 20632-0, 5130-0, 32399-2, 08368-0, 03866-8 #### [facility] ([id number]) [address] [facility] [facility], [address] [place] [address] Bilirubin [Mass/Vol] 0.7 mg/dL Normal 0.3-1.2 [facility] Comment on above: Performed By: #### C BCA, 92275-3, 10417-6, CMP, 3084-1, HA1C, 89319-6, 05127-1, 5130-0, 75687-9, 47023-1, 09215-0 #### [facility] ([id number]) [address] [facility], [address] [place] [address] Calcium [Mass/Vol] 9.2 mg/dL Normal 8.5-10.5 [facility] Comment on above: Performed By: #### C BCA, 28660-5, 95087-1, CMP, 3084-1, HA1C, 99236-9, 15380-1, 5130-0, 89023-4, 75991-3, 97292-5 #### [facility] ([id number]) [address], [address] [place] [address] Chloride [Moles/Vol] 102 mmol/L Normal 98-109 [facility] Comment on above: Performed By: #### C BCA, 29258-7, 09756-0, CMP, 3084-1, HA1C, 85462-3, 66242-6, 5130-0, 07141-8, 47325-4, 54114-8 #### [facility] ([id number]) [address] [facility] [facility], [address] [place] [address] CO2 [Moles/Vol] 26 mmol/L Normal 22-32 [facility] Comment on above: Performed By: #### C BCA, 75106-7, 98877-9, CMP, 3084-1, HA1C, 24794-4, 26441-6, 5130-0, 96787-6, 92695-4, 08554-5 #### [facility] ([id number]) [address] [facility] [facility], [address] [place] [address] Creatinine [Mass/Vol] 0.91 mg/dL Normal 0.60-1.30 [facility] Comment on above: Result Comment: METH OD TRACEABLE TO IDMS STANDARD Performed By: #### C BCA, 03106-2, 91216-6, CMP, 3084-1, HA1C, 98470-7, 86810-2, 5130-0, 39377-6, 17977-8, 05972-9 #### [facility] ([id number]) [address], [address] [place] [address] eGFR (CKD-EPI) NON-RACE DEPENDENT >90 Normal >59 [facility] Comment on above: Result Comment: Reported eGFR is based on the CKD-EPI 2020 equation that does not use a race coefficient. Performed By: #### C BCA, 03481-3, 07216-0, CMP, 3084-1, HA1C, 45410-9, 27574-2, 5130-0, 57459-0, 38466-0, 09158-6 #### [facility] ([id number]) [address] [facility], [address] [place] [address] Glucose [Mass/Vol] 93 mg/dL Normal 65-99 [facility] Comment on above: Performed By: #### C BCA, 15015-2, 90736-1, CMP, 3084-1, HA1C, 05683-7, 95225-2, 5130-0, 38003-6, 69829-4, 67031-9 #### [facility] ([id number]) [address] [facility], [address] [place] [address] Potassium [Moles/Vol] 4.0 mmol/L Normal 3.5-5.0 [facility] Comment on above: Performed By: #### C BCA, 75032-2, 68839-8, CMP, 3084-1, HA1C, 76329-2, 34233-9, 5130-0, 42501-3, 46208-4, 41397-9 #### [facility] ([id number]) [address], [address] [place] [address] Protein [Mass/Vol] 7.8 g/dL Normal 6.0-8.0 [facility] Comment on above: Performed By: #### C BCA, 00216-1, 07097-4, CMP, 3084-1, HA1C, 97958-8, 62048-8, 5130-0, 78713-4, 44287-8, 77566-4 #### [facility] ([id number]) [address] [facility], [address] [place] [address] Sodium [Moles/Vol] 139 mmol/L Normal 134-146 [facility] Comment on above: Performed By: #### C BCA, 64352-4, 39160-2, CMP, 3084-1, HA1C, 95369-8, 37632-4, 5130-0, 31545-7, 78643-3, 59331-5 #### [facility] ([id number]) [address] [facility], [address] [place] [address] Urea nitrogen [Mass/Vol] 11 mg/dL Normal 5-23 [facility] Comment on above: Performed By: #### C BCA, 67851-0, 68077-0, CMP, 3084-1, HA1C, 03426-6, 47627-1, 5130-0, 28517-4, 07459-4, 14058-3 #### [facility] ([id number]) [address] [facility], [address] [place] [address] Chromatin Ab Qlon 12-30-2023 CHROMATIN AB IGG <0.2 Normal <1.0 [facility] Comment on above: Performed By: #### C BCA, 61026-9, 34375-3, CMP, 3084-1, HA1C, 59801-5, 71327-1, 5130-0, 27481-9, 33634-4, 10004-1 #### [facility] ([id number]) [address], [address] [place] [address] Comprehensive metabolic pane solomon 12-30-2023 Albumin [Mass/Vol] 4.3 g/dL 3.2 - 5.3 g/dL [facility] ALP [Catalytic activity/Vol] 73 U/L 39 - 130 U/L [facility] ALT No additional P-5'-P [Catalytic activity/Vol] 49 U/L High 0 - 40 U/L [facility] Anion gap [Moles/Vol] 11 mmol/L 5 - 15 mmol/L [facility] AST [Catalytic activity/Vol] 38 U/L 0 - 41 U/L [facility] Bilirubin [Mass/Vol] 0.7 mg/dL 0.3 - 1 .2 mg/dL [facility] Calcium [Mass/Vol] 9.2 mg/dL 8.5 - 10. 5 mg/dL [facility] Chloride [Moles/Vol] 102 mmol/L 98 - 10 9 mmol/L [facility] CO2 [Moles/Vol] 26 mmol/L 22 - 32 mmol/L [facility] Creatinine [Mass/Vol] 0.91 mg/dL 0.60 - 1.30 mg/dL [facility] Comment on above: METHOD TRACEABLE TO [facility] STANDARD eGFR (CKD-EPI)non-race dependent - PINF [facility] Comment on above: Reported eGFR is based on the CKD-EPI 2020 equation that does not use a race coefficient. Glucose [Mass/Vol] 93 mg/dL 65 - 99 mg/dL [facility] Interpretation and review of laboratory results Abnormal [facility] Potassium [Moles/Vol] 4.0 mmol/L 3.5 - 5.0 mmol/L [facility] Protein [Mass/Vol] 7.8 g/dL 6.0 - 8.0 g/dL [facility] Sodium [Moles/Vol] 139 mmol/L 134 - 146 mmol/L [facility] Urea nitrogen [Mass/Vol] 11 mg/dL 5 - 23 mg/dL [facility] DNA double strand Ab Qn (S)o n 12-30-2023 DOUBLE STRANDED DNA 1 IU/ML Normal <5 [facility] Comment on above: Result Comment: Interpretation-------- <5 Negative 5-9 Indeterminate >9 Positive Performed By: #### C BCA, 80301-7, 27468-2, CMP, 3084-1, HA1C, 77862-3, 04579-3, 5130-0, 65720-6, 68730-1, 61217-1 #### [facility] ([id number]) [address] [place] [address] ESR Photometric method (Bld) [Velocity]on 12-30-2023 Interpretation and review of laboratory results Abnormal [facility] ESR, ERYTHROCYTE SEDIMENTATION RATE 32 mm/h High 0-20 [facility] Comment on above: Performed By: #### C BCA, 32439-5, 09043-8, CMP, 3084-1, HA1C, 74834-8, 49048-2, 5130-0, 31761-2, 49383-6, 34833-9 #### [facility] ([id number]) [address], [address] [place] [address] Erythrocyte Sedimentation Ra te (ESR)on 12-30-2023 ESR Photometric method (Bld) [Velocity] 32 mm/h High 0 - 20 mm/h [facility] HGB A1C (GLYCO-HGB)on 2023 Glucose [Mass/Vol] 114 mg/dL Normal [facility] Comment on above: Performed By: #### C BCA, 07646-6, 97121-4, CMP, 3084-1, HA1C, 10089-6, 08757-8, 5130-0, 83868-8, 55363-5, #### [facility] ([id number]) [address], [address] [place] [address] HbA1c (Bld) [Mass fraction] 5.6 % Normal 4.4-5.6 [facility] Comment on above: Result Comment: NOTE ADA Guidelines Result HgbA1c Normal : less than 5.7 % Prediabetes : 5.7 % to 6.4 % Diabetes : > 6.4 % Use with caution in patients with abnormal hemoglobin variants as the half-life of red blood cells and in vivo glycation rates are affected. Performed By: #### C BCA, 86122-1, 77477-2, CMP, 3084-1, HA1C, 04082-7, 33582-2, 5130-0, 85227-3, 97007-6, 03929-5 #### [facility] ([id number]) [address], [address] [place] [address] No Panel Informationon 12-29 [facility] Nuclear Ab IA Ql (S)on 12-29 CATHY Screen w/reflex Positive Abnormal NEG [facility] Comment on above: Result Comment: Testing performed using multiplex flow immunoassay. Eleven different antigens associated with systemic autoimmune diseases (dsDNA,Sm,Sm/FAMILY ENGAGEMENT SPECIALIST,FAMILY ENGAGEMENT SPECIALIST,Chromatin, SSA,SSB,Claritza-1,Scl70,Ribo P,Centromere B) are included in this screening test. Performed By: #### C BCA, 87054-5, 08697-7, CMP, 3084-1, HA1C, 72382-1, 16652-1, 5130-0, 60414-7, 63433-2, 53614-1 #### [facility] ([id number]) [address], [address] [place] [address] Rheumatoid factoron 12-30-19 Rheumatoid factor Nephelometry Qn (S) NINF [facility] Rheumatoid factor Nephelomet ry Qn (S)on 12-30-2023 [facility] RHEUMATOID FACTOR <10 Normal <20 [facility] Comment on above: Performed By: #### C BCA, 46350-9, 10679-5, CMP, 3084-1, HA1C, 81977-0, 05618-6, 5130-0, 13989-9, 38671-2, 79516-1 #### [facility] ([id number]) [address], [address] [place] [address] Ribonucleoprotein extractabl e nuclear IgG Qn (S)on 12-30-2023 [employer] ANTIBODY IGG 1.8 AI High <1.0 [facility] Comment on above: Performed By: #### C BCA, 44978-5, 24646-7, CMP, 3084-1, HA1C, 38819-9, 66739-3, 5130-0, 68389-9, 15340-4, 33742-4 #### [facility] ([id number]) [address], [address] [place] [address] Nunez extractable nuclear Ab +Ribonucleoprotein extractable nuclear IgG Qn (S)on 12-30-2023 NUNEZ/FAMILY ENGAGEMENT SPECIALIST AB IGG <0.2 Normal <1.0 [facility] Comment on above: Performed By: #### C BCA, 47476-5, 45560-0, CMP, 3084-1, HA1C, 63464-3, 16050-3, 5130-0, 51509-1, 45665-0, 03429-8 #### [facility] ([id number]) [address], [address] [place] [address] Nunez extractable nuclear Ig G Qn (S)on 12-30-2023 ANTI-NUNEZ AB IGG <0.2 Normal <1.0 [facility] Comment on above: Performed By: #### C BCA, 42995-8, 97085-5, CMP, 3084-1, HA1C, 17081-6, 36168-1, 5130-0, 67644-1, 49707-7, 28414-7 #### [facility] ([id number]) [address], [address] [place] [address] URIC ACIDon 12-30-2023 Urate [Mass/Vol] 6.8 mg/dL Normal 2.6-7.2 [facility] Comment on above: Performed By: #### C BCA, 48122-6, 62659-5, CMP, 3084-1, HA1C, 80714-4, 73901-9, 5130-0, 26576-2, 33729-5, 78740-1 #### [facility] ([id number]) [address] [facility], [address] [place] [address] Uric acidon 12-30-2023 Urate [Mass/Vol] 6.8 mg/dL 2.6 - 7.2 mg/dL [facility] Vital Signs Date Time Vital Sign Value Performing Clinician Alejo arguelloy 11-16-2024 11:02-0400 Body height 182.9 cm Angela WINTER Work Phone: [facility] 11-16-2024 11:02-0400 Body mass index (BMI) [Ratio] 48.01 kg/m2 Angela Estevez PA Work Phone: [facility] 11-16-2024 11:02-0400 Body weight 160.57 kg Angela Estevez PA Work Phone: [facility] 11-16-2024 11:02-0400 Diastolic blood pressure 82 mm[Hg] Angela Estevez PA Work Phone: [facility] 11-16-2024 11:02-0400 Heart rate 78 /min Angela Estevez PA Work Phone: [facility] 11-16-2024 11:02-0400 Respiratory rate 16 /min Angela Estevez PA Work Phone: [facility] 11-16-2024 11:02-0400 SaO2% (BldA) [Mass fraction] 96 % Angela Estevez PA Work Phone: [facility] 11-16-2024 11:02-0400 Systolic blood pressure 130 mm[Hg] Angela Estevez PA Work Phone: [facility] 10-19-2024 10:53-0400 Body height 182.9 cm Rosa Isela Haskins ELECTRICAL CONSTRUCTION PROJECT MANAGER-HEARING AND SPEECH ASSISTANT Work Phone: [facility] 10-19-2024 10:53-0400 Body mass index (BMI) [Ratio] 47.14 kg/m2 Rosa Isela Haskins ELECTRICAL CONSTRUCTION PROJECT MANAGER-HEARING AND SPEECH ASSISTANT Work Phone: [facility] 10-19-2024 10:53-0400 Body temperature 98.49 [degF] Rosa Isela Haskins ELECTRICAL CONSTRUCTION PROJECT MANAGER-HEARING AND SPEECH ASSISTANT Work Phone: [facility] 10-19-2024 10:53-0400 Body weight 157.67 kg Rosa Isela Haskins ELECTRICAL CONSTRUCTION PROJECT MANAGER-HEARING AND SPEECH ASSISTANT Work Phone: [facility] 10-19-2024 10:53-0400 Diastolic blood pressure 70 mm[Hg] Rosa Isela Haskins ELECTRICAL CONSTRUCTION PROJECT MANAGER-HEARING AND SPEECH ASSISTANT Work Phone: [facility] 10-19-2024 10:53-0400 Heart rate 77 /min Rosa Isela Haskins APRN-HEARING AND SPEECH ASSISTANT Work Phone: [facility] 10-19-2024 10:53-0400 Respiratory rate 18 /min Rosa Isela Haskins APRN-HEARING AND SPEECH ASSISTANT Work Phone: [facility] 10-19-2024 10:53-0400 SaO2% (BldA) [Mass fraction] 98 % Rosa Isela Haskins APRN-HEARING AND SPEECH ASSISTANT Work Phone: [facility] 10-19-2024 10:53-0400 Systolic blood pressure 100 mm[Hg] Rosa Isela Haskins APRN-HEARING AND SPEECH ASSISTANT Work Phone: [facility] 07-20-2024 11:34-0500 Body height 182.9 cm Pa Mathews PA Work Phone: [facility] 07-20-2024 11:34-0500 Body mass index (BMI) [Ratio] 44.08 kg/m2 Pa Mathews PA Work Phone: [facility] 07-20-2024 11:34-0500 Body weight 147.42 kg Pa Mathews PA Work Phone: [facility] 07-06-2024 08:38-0500 Body mass index (BMI) [Ratio] 47.33 kg/m2 Lisbeth Grimes LINE INSTALLATION SUPERVISOR Work Phone: [facility] 07-06-2024 08:38-0500 Body weight 158.31 kg Lisbeth Grimes LINE INSTALLATION SUPERVISOR Work Phone: [facility] 07-06-2024 08:38-0500 Diastolic blood pressure 88 mm[Hg] Lisbeth Grimes LINE INSTALLATION SUPERVISOR Work Phone: [facility] 07-06-2024 08:38-0500 Heart rate 88 /min Lisbeth Grimes LINE INSTALLATION SUPERVISOR Work Phone: [facility] 07-06-2024 08:38-0500 SaO2% (BldA) [Mass fraction] 94 % Lisbeth Grimes LINE INSTALLATION SUPERVISOR Work Phone: [facility] 07-06-2024 08:38-0500 Systolic blood pressure 142 mm[Hg] Lisbeth Grimes LINE INSTALLATION SUPERVISOR Work Phone: [facility] 06-09-2024 10:50-0500 Body height 182.9 cm Christadam Casarez DO Work Phone: [facility] 06-09-2024 10:50-0500 Body mass index (BMI) [Ratio] 46.52 kg/m2 Christopher Hermelindo DO Work Phone: [facility] 06-09-2024 10:50-0500 Body weight 155.58 kg Christopher Hermelindo DO Work Phone: [facility] 06-09-2024 10:50-0500 Diastolic blood pressure 83 mm[Hg] Christopher Hermelindo DO Work Phone: [facility] 06-09-2024 10:50-0500 Heart rate 73 /min Christopher Hermelindo DO Work Phone: [facility] 06-09-2024 10:50-0500 SaO2% (BldA) [Mass fraction] 94 % Christpayaler Hermelindo DO Work Phone: [facility] 06-09-2024 10:50-0500 Systolic blood pressure 131 mm[Hg] Gauravopher Hermelindo DO Work Phone: [facility] 05-10-2024 12:53-0400 Body height 182.9 cm Rosa Isela Haskins APRN-HEARING AND SPEECH ASSISTANT Work Phone: [facility] 05-10-2024 12:53-0400 Body mass index (BMI) [Ratio] 45.79 kg/m2 Rosa Isela Haskins ELECTRICAL CONSTRUCTION PROJECT MANAGER-HEARING AND SPEECH ASSISTANT Work Phone: [facility] 05-10-2024 12:53-0400 Body temperature 98.71 [degF] Rosa Isela Haskins ELECTRICAL CONSTRUCTION PROJECT MANAGER-HEARING AND SPEECH ASSISTANT Work Phone: [facility] 05-10-2024 12:53-0400 Body weight 153.13 kg Rosa Isela Haskins ELECTRICAL CONSTRUCTION PROJECT MANAGER-HEARING AND SPEECH ASSISTANT Work Phone: [facility] 05-10-2024 12:53-0400 Diastolic blood pressure 60 mm[Hg] Rosa Isela Haskins ELECTRICAL CONSTRUCTION PROJECT MANAGER-HEARING AND SPEECH ASSISTANT Work Phone: [facility] 05-10-2024 12:53-0400 Heart rate 74 /min Rosa Isela Haskins ELECTRICAL CONSTRUCTION PROJECT MANAGER-HEARING AND SPEECH ASSISTANT Work Phone: [facility] 05-10-2024 12:53-0400 Respiratory rate 18 /min Rosa Isela Haskins ELECTRICAL CONSTRUCTION PROJECT MANAGER-HEARING AND SPEECH ASSISTANT Work Phone: [facility] 05-10-2024 12:53-0400 SaO2% (BldA) [Mass fraction] 96 % Rosa Isela Haskins ELECTRICAL CONSTRUCTION PROJECT MANAGER-HEARING AND SPEECH ASSISTANT Work Phone: [facility] 05-10-2024 12:53-0400 Systolic blood pressure 124 mm[Hg] Rosa Isela Haskins ELECTRICAL CONSTRUCTION PROJECT MANAGER-HEARING AND SPEECH ASSISTANT Work Phone: [facility] 02-01-2024 16:06-0400 Body height 182.9 cm Rosa Isela Haskins ELECTRICAL CONSTRUCTION PROJECT MANAGER-HEARING AND SPEECH ASSISTANT Work Phone: [facility] 02-01-2024 16:06-0400 Body mass index (BMI) [Ratio] 45.87 kg/m2 Rosa Isela Haskins ELECTRICAL CONSTRUCTION PROJECT MANAGER-HEARING AND SPEECH ASSISTANT Work Phone: [facility] 02-01-2024 16:06-0400 Body temperature 98.2 [degF] Rosa Isela Haskins ELECTRICAL CONSTRUCTION PROJECT MANAGER-HEARING AND SPEECH ASSISTANT Work Phone: [facility] 02-01-2024 16:06-0400 Body weight 153.41 kg Rosa Isela Haskins ELECTRICAL CONSTRUCTION PROJECT MANAGER-HEARING AND SPEECH ASSISTANT Work Phone: [facility] 02-01-2024 16:06-0400 Diastolic blood pressure 70 mm[Hg] Rosa Isela Haskins ELECTRICAL CONSTRUCTION PROJECT MANAGER-HEARING AND SPEECH ASSISTANT Work Phone: [facility] 02-01-2024 16:06-0400 Heart rate 72 /min Rosa Isela Haskins ELECTRICAL CONSTRUCTION PROJECT MANAGER-HEARING AND SPEECH ASSISTANT Work Phone: [facility] 02-01-2024 16:06-0400 Respiratory rate 18 /min Rosa Isela Haskins APRN-HEARING AND SPEECH ASSISTANT Work Phone: [facility] 02-01-2024 16:06-0400 SaO2% (BldA) [Mass fraction] 98 % Rosa Isela Haskins APRN-HEARING AND SPEECH ASSISTANT Work Phone: [facility] 02-01-2024 16:06-0400 Systolic blood pressure 120 mm[Hg] Rosa Isela Haskins APRN-HEARING AND SPEECH ASSISTANT Work Phone: [facility] 12-30-2023 13:57-0400 Body height 177.8 cm Rosa Isela Haskins APRN-HEARING AND SPEECH ASSISTANT Work Phone: [facility] 12-30-2023 13:57-0400 Body mass index (BMI) [Ratio] 48.24 kg/m2 Rosa Isela Haskins APRN-HEARING AND SPEECH ASSISTANT Work Phone: [facility] 12-30-2023 13:57-0400 Body weight 152.5 kg Rosa Isela Haskins APRN-HEARING AND SPEECH ASSISTANT Work Phone: [facility] 12-30-2023 13:57-0400 Diastolic blood pressure 72 mm[Hg] Rosa Isela Haskins APRN-HEARING AND SPEECH ASSISTANT Work Phone: [facility] 12-30-2023 13:57-0400 Heart rate 83 /min Rosa Isela Haskins APRN-HEARING AND SPEECH ASSISTANT Work Phone: [facility] 12-30-2023 13:57-0400 Respiratory rate 20 /min Rosa Isela Haskins ELECTRICAL CONSTRUCTION PROJECT MANAGER-HEARING AND SPEECH ASSISTANT Work Phone: [facility] 12-30-2023 13:57-0400 SaO2% (BldA) [Mass fraction] 95 % Rosa Isela Haskins APRN-HEARING AND SPEECH ASSISTANT Work Phone: [facility] 12-30-2023 13:57-0400 Systolic blood pressure 136 mm[Hg] Rosa Isela Haskins ELECTRICAL CONSTRUCTION PROJECT MANAGER-HEARING AND SPEECH ASSISTANT Work Phone: [facility] Encounters Encounter Date Encounter Type Care Provider Facility Start: 03-13-2025 End: 03-13-2025 ambulatory Frank Bah MD Facility:[facility] Start: 02-06-2025 End: 02-06-2025 ambulatory Frank Bah MD Facility:[facility] Start: 01-02-2025 End: 01-02-2025 ambulatory Frank Bah MD Facility:[facility] Start: 12-12-2024 End: 12-12-2024 ambulatory Frank Bah MD Facility:[facility] Start: 11-16-2024 End: 11-16-2024 Bamboo flowsheet [...] Facility: [facility] Start: 11-03-2024 End: 11-03-2024 ambulatory ROSA ISELABarb HASKINS [facility] Start: 10-19-2024 End: 10-19-2024 Office outpatient visit 15 minutes Rosa Isela Haskins ELECTRICAL CONSTRUCTION PROJECT MANAGER-HEARING AND SPEECH ASSISTANT Work Phone: [facility] Comment on above: Enlarged lymph node in neck (Primary Dx); Ganglion cyst of tendon sheath of left hand Start: 10-19-2024 End: 10-19-2024 ambulatory [facility] Start: 10-04-2024 End: 10-04-2024 Bamboo flowsheet Lisbeth Grimes LINE INSTALLATION SUPERVISOR Work Phone: [facility] Start: 10-04-2024 End: 10-04-2024 Bamboo flowsheet Lisbeth Griems LINE INSTALLATION SUPERVISOR Work Phone: [facility] [place] Start: 10-04-2024 End: 10-04-2024 ambulatory LISBETH GRIMES Not Available Start: 09-23-2024 End: 09-23-2024 ambulatory LISBETH GRIMES [facility] Start: 08-18-2024 End: 08-18-2024 Bamboo flowsheet [...] 08-16-2024 End: 08-16-2024 Bamboo flowsheet Nandini Cox MANUFACTURING ENGINEERING TECHNOLOGIST [facility] Start: 08-16-2024 End: 08-16-2024 Bamboo flowsheet Nandini Montaneztersall MANUFACTURING ENGINEERING TECHNOLOGIST [facility] Start: 08-16-2024 End: 08-16-2024 ambulatory Nandini Cox MANUFACTURING ENGINEERING TECHNOLOGIST [facility] Comment on above: Neck pain (Primary D x); Chronic midline low back pain without sciatica; Multiple joint pain; Paresthesia Start: 08-11-2024 End: 08-11-2024 ambulatory Danni Luna MANUFACTURING ENGINEERING TECHNOLOGIST Work Phone: [facility] Comment on above: Neck pain (Primary D x); Chronic midline low back pain without sciatica; Multiple joint pain; Paresthesia Start: 08-08-2024 End: 08-18-2024 Telephone encounter Lisbeth Grimes LINE INSTALLATION SUPERVISOR Work Phone: [facility] [place] Start: 08-02-2024 End: 08-02-2024 Bamboo flowsheet Ludy J Carline PT Work Phone: [facility] Start: 08-02-2024 End: 08-02-2024 Bamboo flowsheet Ludy Alvares Carline PT Work Phone: [facility] Start: 08-02-2024 End: 08-02-2024 ambulatory Ludy Alvares Carline PT Work Phone: [facility] Comment on above: Neck pain (Primary D x); Chronic midline low back pain without sciatica; Multiple joint pain; Paresthesia Start: 07-25-2024 End: 07-25-2024 Bamboo flowsheet Ludy Alvares Carline PT Work Phone: [facility] Start: 07-25-2024 End: 07-25-2024 Bamboo flowsheet Ludy Alvares Carline PT Work Phone: [facility] Start: 07-25-2024 End: 07-25-2024 ambulatory Lduy Crowley PT Work Phone: [facility] Comment on above: Neck pain (Primary D x); Chronic midline low back pain without sciatica Start: 07-21-2024 End: 07-21-2024 External Result Encounter Pa WINTER Work Phone: [facility] Unsolicited Start: 07-21-2024 End: 07-21-2024 External Result Encounter Pa WINTER Work Phone: [facility] Unsolicited Start: 07-21-2024 End: 07-21-2024 ambulatory Nandini Cox MANUFACTURING ENGINEERING TECHNOLOGIST [facility] Comment on above: Neck [...] 07-12-2024 End: 07-12-2024 Bamboo flowsheet Nandini Tattersall MANUFACTURING ENGINEERING TECHNOLOGIST [facility] Start: 07-12-2024 End: 07-12-2024 Bamboo flowsheet Nandini Tattersall MANUFACTURING ENGINEERING TECHNOLOGIST [facility] Start: 07-12-2024 End: 07-12-2024 ambulatory Nandini Tattersall MANUFACTURING ENGINEERING TECHNOLOGIST [facility] Comment on above: Neck pain (Primary D x); Chronic midline low back pain without sciatica; Multiple joint pain; Paresthesia Start: 07-07-2024 End: 07-07-2024 Bamboo flowsheet Nandini Tattersall MANUFACTURING ENGINEERING TECHNOLOGIST [facility] Start: 07-07-2024 End: 07-07-2024 Bamboo flowsheet Nandini Tattersall MANUFACTURING ENGINEERING TECHNOLOGIST [facility] Start: 07-07-2024 End: 07-07-2024 ambulatory Nandini Tattersall MANUFACTURING ENGINEERING TECHNOLOGIST [facility] Comment on above: Neck pain (Primary D x); Chronic midline low back pain without sciatica; Multiple joint pain; Paresthesia Start: 07-06-2024 End: 07-06-2024 Office outpatient visit 25 minutes Lisbeth Grimes LINE INSTALLATION SUPERVISOR Work Phone: [facility] [address] Comment on above: Neck pain (Primary D x); Paresthesias; Bilateral carpal tunnel syndrome; Ulnar neuropathy of both upper extremities Start: 07-06-2024 End: 07-06-2024 ambulatory LISBETH GRIMES Not Available Start: 07-05-2024 End: 07-05-2024 Bamboo flowsheet Aniceto Casarez DO Work Phone: [facility] [place] [address] Start: 07-05-2024 End: 07-05-2024 Bamboo flowsheet Aniceto Casarez DO Work Phone[facility] [address] Start: 07-05-2024 End: 07-05-2024 Patient encounter procedure Aniceto Casarez DO Work Phone: [facility] [place] [facility] Comment on above: Ulnar neuropathy of both upper extremities (Primary Dx) Start: 07-05-2024 End: 07-05-2024 ambulatory ANICETO CASAREZ Not Available Start: 06-23-2024 End: 06-23-2024 Bamboo flowsheet Nandini Cardozaraphael MANUFACTURING ENGINEERING TECHNOLOGIST [facility] Start: 06-23-2024 End: 06-23-2024 Bamboo flowsheet Nandini Montaneztersall MANUFACTURING ENGINEERING TECHNOLOGIST [facility] Start: 06-23-2024 End: 06-23-2024 ambulatory Nandini Cox MANUFACTURING ENGINEERING TECHNOLOGIST [facility] Comment on above: Neck [...] Bamboo flowsheet Aniceto Casarez DO Work Phone: [facility] Start: 06-09-2024 End: 06-09-2024 Bamboo flowsheet Aniceto Casarez DO Work Phone: [facility] Start: 06-09-2024 End: 06-09-2024 Office outpatient new 45 minutes Aniceto Casarez DO Work Phone: [facility] Comment on above: Paresthesia (Primary Dx) Start: 06-09-2024 End: 06-09-2024 ambulatory ANICETO CASAREZ Not Available Start: 05-10-2024 End: 05-10-2024 Office outpatient visit 15 minutes Rosa Isela Haskins ELECTRICAL CONSTRUCTION PROJECT MANAGER-HEARING AND SPEECH ASSISTANT [facility] Comment on above: Chronic pain syndrom e (Primary Dx); Pain in joints Start: 05-10-2024 End: 05-10-2024 ambulatory [facility] Start: 03-17-2024 End: 03-17-2024 Patient encounter procedure MD Pa San Work Phone: [facility] [address] Work Phone: Start: 03-17-2024 End: 03-17-2024 ambulatory Pa San [facility] Work Phone: Start: 02-01-2024 End: 02-01-2024 ambulatory [facility] Start: 02-01-2024 Encounter for genera l adult medical examination without abnormal findings [facility] Start: 02-01-2024 End: 02-01-2024 Patient encounter procedure Rosa Iselabarb Haskins ELECTRICAL CONSTRUCTION PROJECT MANAGER-HEARING AND SPEECH ASSISTANT Work Phone: [facility] [employer] Work Phone: Start: 02-01-2024 End: 02-01-2024 Periodic preventive med est patient 40-64yrs Rosa Isela Haskins ELECTRICAL CONSTRUCTION PROJECT MANAGER-HEARING AND SPEECH ASSISTANT Work Phone: [facility] - [facility] Comment on above: Annual physical exam (Primary Dx); Blood tests for routine general physical examination; Encounter for screening for malignant neoplasm of prostate; Special screening for malignant neoplasm of colon Start: 02-01-2024 End: 02-01-2024 Physical examination Rosa Iselawin Haskins [facility] Work Phone: [facility] Start: 02-01-2024 End: 02-01-2024 ambulatory [facility] Start: 02-01-2024 Encounter for genera l adult medical examination without abnormal findings [facility] Start: 12-30-2023 End: 12-30-2023 ambulatory [facility] Start: 12-30-2023 End: 12-30-2023 Office outpatient new 45 minutes Rosa Iselabarb Haskins [facility] Work Phone: [facility] Comment on above: Positive CATHY (antinu clear antibody) (Primary Dx); Pain in other joint; Joint swelling; Screening for diabetes mellitus (DM) Start: 12-30-2023 End: 12-30-2023 ambulatory [facility] Procedures Date Procedure Procedure Detail Performing Clinician Start: 10-19-2024 Adult depression scr eening assessment Rosa Isela Haskins [facility] Work Phone: Start: 07-21-2024 Sedimentation rate r bc automated Pa WINTER Work Phone: Start: 07-05-2024 End: 07-05-2024 Needle emg ea extremty w/paraspinl area complete Aniceto Casarez DO Work Phone: Start: 05-10-2024 Adult depression scr eening assessment Rosa Isela [facility] Work Phone: Start: 02-01-2024 Adult depression scr eening assessment [facility] Work Phone: Start: 12-30-2023 Adult depression scr eening assessment [facility] Work Phone: Plan of Treatment Date Care Activity Detail Author Start: 05-03-2027 Screening for malign ant neoplasm of colon [facility] Start: 10-19-2025 Adult BMI Screening Adult BMI Screen ing [facility] Start: 10-19-2025 Depression Screening Depression Scre ening [facility] Start: 10-19-2025 Tobacco Screening Tobacco Screening [facility] Start: 05-10-2025 Adult BMI Follow Up Plan Adult BMI Follow Up Plan [facility] Start: 05-10-2025 Adult BMI Screening Adult BMI Screen ing [facility] Start: 05-10-2025 Depression Screening Depression Scre ening [facility] Start: 05-10-2025 Tobacco Screening Tobacco Screening [facility] Start: 04-03-2025 Influenza vaccination Influenz a Vaccine (Season Ended) [facility] Start: 01-31-2025 Adult BMI Follow Up Plan Adult BMI Follow Up Plan [facility] Start: 01-31-2025 Adult BMI Screening Adult BMI Screen ing [facility] Start: 01-31-2025 Depression Screening Depression Scre ening [facility] Start: 01-31-2025 Tobacco Screening Tobacco Screening [facility] Start: 01-11-2025 End: 01-11-2025 Patient encounter procedure 01/11/2025 11:00 AM EDT Office Visit [facility] [address] [place] [phone] Angela Estevez [place] [address] [place] [address] [facility] Start: 12-29-2024 Adult BMI Follow Up Plan Adult BMI Follow Up Plan [facility] Start: 12-29-2024 Adult BMI Screening Adult BMI Screen ing [facility] Start: 12-29-2024 [facility] Start: 12-29-2024 Tobacco Screening Tobacco Screening [facility] Start: 11-16-2024 End: 11-16-2024 Patient encounter procedure 11/16/2024 11:00 AM EDT Office Visit [facility] [address] [place] [phone] Angela Estevez PA [address] [place] [address] Arrived [facility] Comment on above: Arrived Start: 11-03-2024 End: 11-03-2024 Patient encounter procedure 11/03/2024 9:45 AM EDT Appointment [facility] [address] [place] [phone] [facility] Start: 10-19-2024 End: 10-19-2025 CT Neck WO contrast CT neck soft tissue without contrast Imaging Routine Enlarged lymph node in neck Expected: 10/19/2024, Expires: 10/19/2025 [facility] Work Phone: Comment on above: Expected: 10/19/2024 , Expires: 10/19/2025 Start: 10-04-2024 End: 10-04-2024 Patient encounter procedure 10/04/2024 1:40 PM EST Office Visit [facility]ATHY [facility]ESMAEVUE [address] [facility] [place] [phone] Lisbeth Grimes NP [address] [place] [address] Arrived [facility] Comment on above: Arrived Start: 09-13-2024 End: 09-13-2024 Patient encounter procedure 09/13/2024 11:20 AM EST Office Visit [facility] [address] [place] [phone] Rosa Isela Haskins, ELECTRICAL CONSTRUCTION PROJECT MANAGER-HEARING AND SPEECH ASSISTANT [address] [place] [phone] [facility] Start: 09-06-2024 End: 09-06-2024 Patient encounter procedure 09/06/2024 8:20 AM EST Office Visit [facility]ATHY LEDESMAEVUE [address] [facility] [place] [address] Lisbeth Grimes NP [address] [place] [phone] [facility] [place] Start: 08-18-2024 End: 08-18-2024 ambulatory 08/18/2024 10:00 AM EST Treatment [facility] [address] [place] [phone] Ludy Crowley, PT [address] [place], [place] [phone] [facility] Start: 08-16-2024 End: 08-16-2024 ambulatory [facility] Comment on above: Arrived Start: 08-11-2024 End: 08-11-2024 ambulatory 08/11/2024 10:00 AM EST Treatment [facility] [address] [place] [phone] Danni Luna, MANUFACTURING ENGINEERING TECHNOLOGIST [address] [place], [place] [phone] [facility] Start: 08-10-2024 End: 08-10-2024 Patient encounter procedure 08/10/2024 11:00 AM EST Office Visit [facility] [address] [place] [phone] Pa Mathews, PA [address] [place] [address] [place] [address] [facility] Start: 08-09-2024 End: 08-09-2024 Patient encounter procedure 08/09/2024 9:40 AM EST Office Visit [facility] [place] [address] [place] [phone] Lisbeth Grimes NP [address] [place] [phone] [facility] [place] [address] [facility] Start: 08-08-2024 End: 08-08-2024 ambulatory 08/08/2024 9:00 AM EST Treatment [facility] [address] [place] [phone] Danni Luna, MANUFACTURING ENGINEERING TECHNOLOGIST [address] [place] [address] [facility] Start: 08-05-2024 End: 08-05-2024 ambulatory 08/05/2024 8:30 AM EST Treatment [facility] [address] [place] [phone] Ludy Crowley, PT [address] [place] [address] [facility] Start: 08-02-2024 End: 08-02-2024 ambulatory 08/02/2024 8:30 AM EST Treatment [facility] [address] [place] [phone] Ludy Crowley, PT [address] [place] [address] Arrived [facility] Comment on above: Arrived Start: 07-28-2024 End: 07-28-2024 ambulatory [facility] Start: 07-25-2024 End: 07-25-2024 ambulatory [facility] Comment on above: Arrived Start: 07-21-2024 End: 07-21-2024 ambulatory 07/21/2024 9:30 AM EST Treatment [facility] [address] [place] [phone] Nandini Cox, MANUFACTURING ENGINEERING TECHNOLOGIST [facility] Start: 07-20-2024 End: 07-20-2025 C reactive protein [Mass/volume] in Serum or Plasma C-reactive protein Lab Routine Polyarthralgia Expected: 07/20/2024 (Approximate), Expires: 07/20/2025 [facility] Comment on above: Expected: 07/20/2024 (Approximate), Expires: 07/20/2025 Start: 07-20-2024 End: 07-20-2025 Erythrocyte sedimentation rate Sedimentation rate, automated Lab Routine Polyarthralgia Expected: 07/20/2024 (Approximate), Expires: 07/20/2025 [facility] Comment on above: Expected: 07/20/2024 (Approximate), Expires: 07/20/2025 Start: 07-20-2024 End: 07-20-2025 LYME DISEASE ANTIBODY (IGG), IMMUNOBLOT LYME DISEASE ANTIBODY (IGG), IMMUNOBLOT Lab Routine Polyarthralgia Expected: 07/20/2024 (Approximate), Expires: 07/20/2025 [facility] Comment on above: Expected: 07/20/2024 (Approximate), Expires: 07/20/2025 Start: 07-20-2024 End: 07-20-2025 Myoglobin, serum Myoglobin, serum Lab Routine Polyarthralgia Expected: 07/20/2024 (Approximate), Expires: 07/20/2025 [facility] Work Phone: Comment on above: Expected: 07/20/2024 (Approximate), Expires: 07/20/2025 Start: 07-20-2024 End: 07-20-2024 Patient encounter procedure [facility] Comment on above: Paresthesia of hand, bilateral (Primary Dx); Ulnar neuropathy of both upper extremities Start: 07-19-2024 End: 07-19-2024 ambulatory 07/19/2024 10:00 AM EST Treatment [facility] [address] [place] [address] Ludy Crowley, PT [address] [place] [address] [facility] Start: 07-14-2024 End: 07-14-2024 ambulatory 07/14/2024 9:30 AM EST Treatment [facility] [address] [place] [address] Nandini Cox PTA [facility] Start: 07-12-2024 End: 07-12-2024 [...] 07/06/2024 8:40 AM EST Office Visit [facility] [address] [place] [phone] Lisbeth Grimes NP [address] [place] [phone] [facility] Start: 07-05-2024 End: 07-05-2024 Patient encounter procedure [facility] Comment on above: Arrived Start: 07-04-2024 End: 07-04-2024 ambulatory 07/04/2024 9:00 AM EST Treatment [facility] [address] [place] [phone] aDnni Luna, MANUFACTURING ENGINEERING TECHNOLOGIST [address] [place] [address] [facility] Start: 06-28-2024 End: 06-28-2024 ambulatory 06/28/2024 10:30 AM EST Treatment [facility] [address] [place] [address] Danni Luna, MANUFACTURING ENGINEERING TECHNOLOGIST [address] [place] [address] [facility] Start: 06-23-2024 End: 06-23-2024 ambulatory 06/23/2024 8:30 AM EST Treatment [facility] [address] [place] [phone] Nandini Cox, MANUFACTURING ENGINEERING TECHNOLOGIST Neck pain (Primary Dx); Chronic midline low back pain without sciatica; Multiple joint pain; Paresthesia [facility] Comment on above: Neck pain (Primary D x); Chronic midline low back pain without sciatica; Multiple joint pain; Paresthesia Start: 06-16-2024 End: 06-16-2024 Patient encounter procedure 06/16/2024 11:00 AM EST [facility] [address] [facility] [place] [address] Aniceto Casarez DO [address] [place] [address] [facility] [address] Start: 06-09-2024 End: 06-09-2025 EMG 2 Extremities EMG 2 Extremities Neurology Routine Paresthesia Expected: 06/09/2024, Expires: 06/09/2025 [facility] Work Phone: Comment on above: Expected: 06/09/2024 , Expires: 06/09/2025 Start: 06-09-2024 End: 06-09-2024 Patient encounter procedure 06/09/2024 11:00 AM EST Office Visit [facility] [address] [facility] [place] [address] Aniceto Casarez DO [address] [facility] [place] [address] Arrived [facility] Comment on above: Arrived Start: 04-03-2024 Influenza vaccination Influenza Vacc ine [facility] Start: 03-17-2024 Hemolytic complement CH50 level [facility] Start: 03-17-2024 Hepatitis B core antibody measurement [facility] Start: 03-17-2024 [facility] Start: 02-01-2024 End: 02-01-2024 Patient encounter procedure 02/01/2024 4:00 PM EDT Office Visit [facility] [address] [place] [address] Rosa Isela Haskins, ELECTRICAL CONSTRUCTION PROJECT MANAGER-HEARING AND SPEECH ASSISTANT [address] [place] [address] [facility] Start: 2016 Administration of varicella zoster vaccine Zoster (Shingles) Vaccine (1 of 2) [facility] Start: 2011 Screening for malign ant neoplasm of colon Colonoscopy [facility] Start: 1985 DTaP,Tdap and Td Vaccines (1 - Tdap) DTaP,Tdap and Td Vaccines (1 - Tdap) [facility] Start: 1966 Screening for malign ant neoplasm of colon [facility] Start: 1966 Tobacco Counseling Tobacco Counselin g [facility] Aldolase measurement [facility] End: 12-29-2024 CATHY Screen w/ Reflex CATHY Screen w/ Reflex Lab Routine Positive CATHY (antinuclear antibody) Pain in other joint 1 Occurrences starting 12/30/2023 until 12/29/2024 [facility] Work Phone: Comment on above: 1 Occurrences starti ng 12/30/2023 until 12/29/2024 Chromatin Ab [Units/volume] in Serum or Plasma [facility] Cologuard [facility] d [facility] Routine Special screening for malignant neoplasm of colon Ordered: 02/01/2024 [facility] Comment on above: Ordered: 02/01/2024 Complement C3 [Mass/volume] in Serum or Plasma [facility] Complement C4 [Mass/volume] in Serum or Plasma [facility] End: 12-30-2024 Hemoglobin A1c/Hemoglobin.total in Blood Hemoglobin A1c Lab Routine Screening for diabetes mellitus (DM) 1 Occurrences starting 12/30/2023 until 12/30/2024 [facility] Comment on above: 1 Occurrences starti ng 12/30/2023 until 12/30/2024 Hemoglobin A1c/Hemoglobin.total in Blood Hemoglobin A1c Lab Routine Screening for diabetes mellitus (DM) 12/30/2023 10:10 PM EDT [facility] Hepatitis B virus surface Ab [Presence] in Serum [facility] Hepatitis B virus surface Ag [Presence] in Serum or Plasma by Immunoassay [facility] Hepatitis C virus Ig G Ab [Presence] in Serum or Plasma by Immunoassay [facility] Homogenous nuclear A b pattern [Titer] in Serum [facility] End: 01-31-2025 Lipid panel Lipid panel Lab Routine Blood tests for routine general physical examination 1 Occurrences starting 02/01/2024 until 01/31/2025 [employer] Phone: Comment on above: 1 Occurrences starti ng 02/01/2024 until 01/31/2025 Lupus anticoagulant [Interpretation] in Platelet poor plasma [facility] Nuclear Ab [Presence ] in Serum by Immunoassay [facility] Screen w/ Reflex Lab Routine Positive CATHY (antinuclear antibody) Pain in other joint 12/30/2023 10:10 PM EDT [facility] Nuclear Ab [Titer] i n Serum [facility] End: 01-31-2025 Prostatic specific antigen screen Prostatic specific antigen screen Lab Routine Encounter for screening for malignant neoplasm of prostate 1 Occurrences starting 02/01/2024 until 01/31/2025 [facility] Comment on above: 1 Occurrences starti ng 02/01/2024 until 01/31/2025 Reagin Ab [Presence] in Serum by RPR [facility] Thrombin time [facility] Thyroglobulin Ab [Units/volume] in Serum or Plasma [facility] Thyroperoxidase Ab [Units/volume] in Serum or Plasma [facility] Payers Date Payer Category Payer Unknown 2024 Self-pay 2024 Unknown [id number] 2023 Medicaid [facility] MEDIC AID [id number] 2023 Medicaid [id number] 2023 Private Health Insurance [facility] MEDICAID [id number] 2023 Medicaid [id number] 1965 Unknown [id number] 2.16840.1.005419.3.579.2. 1285 1966 Unknown [id number] 2.16840.1.205304.3.579.2. 1285 1966 Unknown [id number] 2.16840.1.799853.3.579.2. 1285 1966 Unknown [id number] 2.16840.1.919433.3.579.2. 1285 1966 Unknown [id number] 2.16.840.1.305521.3.579.2. 1285 1966 Unknown [id number] 2.16840.1.432631.3.579.2. 1285 1966 Unknown [id number] 2.16.840.1.741700.3.579.2. 1285 1966 Unknown [id number] 2.16.840.1.020818.3.579.2. 1285 1966 Unknown [id number] 2.16840.1.437176.3.579.2. 1285 1966 Unknown [id number] 2.16.840.1.387699.3.579.2. 1285 1966 Unknown [id number] 2.16.840.1.360177.3.579.2. 1258 1966 Unknown [id number] 2.16.840.1.316502.3.579.2. 1258 1966 Unknown [id number] 2.16.840.1.722666.3.579.2. 1258 1966 Unknown [id number] 2.16.840.1.376017.3.579.2. 1258 1966 Unknown [id number] 2.16.840.1.815173.3.579.2. 1258 1966 Unknown [id number] 2.16.840.1.928060.3.579.2. 1258 1966 Unknown [id number] 2.16.840.1.367683.3.579.2. 1258 1966 Unknown [id number] 2.16.840.1.860393.3.579.2. 1258 1966 Unknown [id number] 2.16.840.1.441655.3.579.2. 1258 1966 Unknown [id number] 2.16.840.1.239239.3.579.2. 1258 1966 Unknown [id number] 2.16.840.1.330317.3.579.2. 1258 1966 Unknown [id number] 2.16.840.1.259299.3.579.2. 1258 1966 Unknown [id number] 2.16.840.1.751543.3.579.2. 1258 1966 Unknown [id number] 2.16.840.1.639788.3.579.2. 1258 1966 Unknown [id number] 2.16.840.1.428749.3.579.2. 1258 1966 Unknown [id number] 2.16.840.1.322245.3.579.2. 1258 1966 Unknown [id number] 2.16.840.1.586095.3.579.2. 196 1966 Unknown [id number] 2.16.840.1.370978.3.579.2. 196 1966 Unknown [id number] 2.16.840.1.196649.3.579.2. 196 1966 Unknown [id number] 2.16.840.1.709088.3.579.2. 196 1966 Unknown [id number] 2.16.840.1.527407.3.579.2. 196 Unknown [id number] 2.16.840.1.375618.3.579.2. 531 Social History Date Type Detail Facility Tobacco smoking stat [facility] Unknown if ever smoked [facility] Work Phone: Start: 1965 Sex Assigned At Male F [facility] Tobacco smoking stat [facility] Tobacco smoking consumption unknown [facility] Start: 1965 Sex assigned at Not on file [facility] Start: 07-06-2024 End: 11-16-2024 Gender identity Not on file [facility] Start: 07-06-2024 [facility] daily [facility] History of tobacco use Cigarette Smoker [facility] Start: 07-06-2024 End: 11-16-2024 Cigarettes smoked current (pack per day) - Reported 1 [facility] Start: 07-06-2024 End: 07-19-2024 Tobacco use and exposure User of smokeless tobacco [facility] History of tobacco use Snuff User [facility] Start: 07-06-2024 End: 11-16-2024 Alcoholic beverage intake Current drinker of alcohol (finding) [facility] Start: 12-30-2023 End: 07-19-2024 Tobacco smoking status NHIS Ex-smoker [facility] History of tobacco use Current smoker [facility] History of tobacco use Chews Tobacco [facility] Adolescent depressio n screening assessment 7 [facility] Start: 12-30-2023 Alcohol Comment weekly [facility] Start: 03-08-2015 Sex Male (finding) [facility] Clinical Notes 12-30-2023 to 11-16-2024 MAGGY Gonzalez - 11/16/2024 11:00 AM Raf Haskisn APRN-MATTHIEU - 10/19/2024 11:00 AM Micah Crowley, [...] wrist extensors , wrist flexor , and horticultural services supervisor strength 5/5. LUE strength deltoid , biceps , triceps , wrist extensors , wrist flexor , and horticultural services supervisor strength 5/5. RLE strength iliopsoas, quadriceps, tibialis [...] of the cervical spine without contrast at [facility] on 09/26/2024: Multilevel degenerative changes most significant [...] or worsening symptoms. documented in this encounter [facility] 10-19-2024 History of Presen t illness Narrative Images from the original note were not included. [address] [place] [address] SUBJECTIVE: Patient ID: Son Dumas is a [...] Guzman 10/19/24 1251 documented in this encounter [facility] 08-18-2024 History of Presen t illness Narrative [...] get MRI approved. documented in this encounter [facility] 08-15-2024 Telephone encounter Note Noted, thank you! [facility] Work Phone: 08-15-2024 Miscellaneous Notes Noted, thank you! Appeal request has been approved and denial has been overturned. I faxed the MRI Cervical Spine order to [facility] with updated approval information. Sending back to Lisbeth GUERRA I spoke with [facility] who confirmed that the appeal request has been received and is pending/ open. Appeal ID# [id number] Appeal request with physical therapy notes 1-7 have been faxed to [facility]. Will continue to follow Hello! The patient has reportedly been in physical therapy since 06/20/2024, so he should have completed six weeks by now. Is [id number] still an option for his MRI cervical spine denial, or are we able to file an appeal for this? documented in this encounter [facility] 08-15-2024 Telephone encounter Note Appeal request has been approved and denial has been overturned. I faxed the MRI Cervical Spine order to [facility] with updated approval information. Sending back to Lisbeth GUERRA [facility] 08-15-2024 Telephone encounter Note I spoke with [facility] who confirmed that the appeal request has been received and is pending/ open. Appeal ID# [id number] [facility] 08-09-2024 Telephone encounter Note Appeal request with physical therapy notes 1-7 have been faxed to [facility]. Will continue to follow [facility] 08-08-2024 Telephone encounter Note Hello! The patient has reportedly been in physical therapy since 06/20/2024, so he should have completed six weeks by now. Is [id number] still an option for his MRI cervical spine denial, or are we able to file an appeal for this? [facility] 08-02-2024 History of Presen t [...] Continue as able. documented in this encounter [facility] 07-25-2024 History of Presen t illness Narrative [...] Continue as able. documented in this encounter [facility] 07-20-2024 History of Presen t illness Narrative Images from the original note were not included. NAME: Son Dumas : 1965 HISTORY OF PRESENT ILLNESS: NEW PT Son Dumas is an 59 y.o. @ male. NEW PT, N/T B/L HANDS LT > RT. EMG 07/05/24 @ [facility]. LISBETH BROWNE REFERRAL (ACTHY)- SYMPTOMS FOR YRS - NO KNOWN INJURY- [...] is normal. Strength additional comments: 5/5 EQUAL SEXTON HELPER STRENGTH Neurovascular Right Right neurovascular exam is [...] Signs Painful arc test: positive Biceps/govind Signs Kabetogama's test: positive Instability Signs Anterior apprehension test: [...] requiring urgent evaluation. documented in this encounter [facility] 07-14-2024 Telephone encounter Note PT office notes needed faxed to [facility] -[phone] Ty [facility] 07-14-2024 Miscellaneous Notes PT office notes needed faxed to [facility] -[phone] Ty documented in this encounter [facility] 07-06-2024 History of Presen t illness Narrative [...] wrist extensors , wrist flexor , and horticultural services supervisor strength 5/5. LUE strength deltoid , biceps , triceps , wrist extensors , wrist flexor , and horticultural services supervisor strength 5/5. RLE strength iliopsoas, quadriceps, tibialis [...] reflex 2+. LLE Knee reflex 2+. Coordination: [id number] testing normal. Rapid alternating movements are normal. [...] this would be best managed by a roof cement and paint maker Ulnar neuropathy of both upper extremities The [...] HOSPITAL Advanced Neurology documented in this encounter [facility] 07-06-2024 Instructions Lisbeth Grimes NP - 07/06/2024 8:40 AM EST - MRI of the cervical spine ([facility]) - Referral to orthopedic surgery ([facility]) - Referral to pain management ([facility]) documented in this encounter [facility] 07-05-2024 History of Presen t illness Narrative Images from the original note were not included. Reason for Appointment: EMG Patient: Son Dumas : 1965 EMG Computer: [employer] Referring Physician: Dr. Aniceto Casarez EMG: BUE retail department manager: Christiano Castro RT(R) Office Location: [place] Reason for EMG: c/o numbness/tingling in left hand, joint pain throughout body, neck pain. No hx of DM. Not on blood thinners. Comments: Procedure was explained to the patient who expressed understanding. Patient appeared to have tolerated the test well despite some discomfort due to the nature of the test. documented in this encounter [facility] 06-20-2024 History of Presen t illness Narrative [...] per both neck and back index's at [facility] Short Term Goal #4: pt will be ind with HEP for maintenance at [facility] and not feel the need for further Dx testing/intervention at [facility] Pt will benefit from skilled PT to address the above impairments for 1-3x/week for 6 weeks pending pt needs/progress I hereby deem this POC medically necessary. Please sign below. Date: documented in this encounter [facility] 06-09-2024 History of Presen t illness Narrative [...] , wrist extensors , wrist flexor , horticultural services supervisor strength 5/5. LUE Strength deltoid , biceps , triceps , wrist extensors , wrist flexor , horticultural services supervisor strength 5/5. RLE Strength illopsoas, quadriceps, tibialis [...] reflex 2+ . Martin's sign negative. Coordination: [id number] testing and rapid alternating movements are normal [...] and return instructions documented in this encounter [facility] 05-10-2024 History of Presen t illness Narrative Images from the original note were not included. [address] [place] [id number] SUBJECTIVE: Patient ID: Son Dumas is a [...] 1/2 tablet daily x4 days Reviewed Dr. Smi, rheumatology notes and labs. CATHY and serology [...] Guzman 05/10/24 1413 documented in this encounter [facility] [employer] 02-01-2024 History of Presen t illness Narrative Images from the original note were not included. [address] [place] [address] SUBJECTIVE: Patient ID: Son Dumas is a [...] office will reach out to [facility], josefa referral. Labs drawn in office today ALL QUESTIONS ANSWERED Total time spent was 30 minutes: Preparing to see the patient (e.g., review of tests) Obtaining and/or reviewing separately obtained history Performing a medically appropriate examination and/or evaluation Counseling and educating the patient/family/caregiver Ordering medications, tests, or procedures Follow-up: Annual physical ANDRESSA Guzman 02/01/24 1654 documented in this encounter [facility] 12-30-2023 History of Presen t illness Narrative Images from the original note were not included. [address] [facility] [address] SUBJECTIVE: Patient ID: Son Dumas is [...] Guzman 12/30/23 1634 documented in this encounter [facility] Evaluation note No assessment inform ation available [facility] Work Phone: Evaluation note Diagnosis Paresthesia- Primary Disturbance of skin sensation documented in this encounter [facility]* Diagnosis Neck pain- Primary Cervicalgia Chronic midline low back pain without sciatica Multiple joint pain Pain in joint, multiple sites Paresthesia Disturbance of skin sensation documented in this encounter [facility]* Diagnosis Neck pain- Primary Cervicalgia Chronic midline low back pain without sciatica Multiple joint pain Pain in joint, multiple sites Paresthesia Disturbance of skin sensation [facility] Diagnosis 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 documented in this encounter [facility]* Diagnosis Neck pain- Primary Cervicalgia [...] of skin sensation documented in this encounter [facility]* Diagnosis Positive CATHY (antinuclear antibody)- Primary Other and unspecified nonspecific immunological findings Pain in other joint Joint swelling Effusion of joint, site unspecified Screening for diabetes mellitus (DM) Screening for diabetes mellitus [facility] Diagnosis Annual physical exam- Primary Routine general medical examination at a health care facility Blood tests for routine general physical examination Laboratory examination ordered as part of a routine general medical examination Encounter for screening for malignant neoplasm of prostate Special screening for malignant neoplasm of colon Special screening for malignant neoplasms, colon [facility] Diagnosis Chronic pain syndrome- Primary Pain in joints Pain in joint, multiple sites [facility] Diagnosis Enlarged lymph node in neck- Primary Ganglion cyst of tendon sheath of left hand [facility]* Diagnosis Neck pain- Primary Cervicalgia DDD (degenerative disc disease), cervical Degeneration of cervical intervertebral disc Lumbosacral radiculopathy Thoracic or lumbosacral neuritis or radiculitis, unspecified Low back pain at multiple sites documented in this encounter [facility]* Attachments The following attachments cannot be sent through Care Everywhere. * Swollen Joints (Micronesian) [facility] Attachments The following attachments cannot be sent through Care Everywhere. * Yearly Physical for Adults (Micronesian) [facility] Attachments The following attachments cannot be sent through Care Everywhere. * Joint Pain (Micronesian) [facility]* Attachments The following attachments cannot be sent through Care Everywhere. * Ganglion cyst (Micronesian) [facility] (n[facility])* Consultation (Routine) - Pending Review Specialty Diagnoses / Procedures Referred By Andriy lambert Referred To Contact Rheumatology Diagnoses Positive CATHY (antinuclear antibody) Pain in other joint Joint swelling Rosa Isela Haskins APRN-MATTHIEU [address] [place] [address] Pa San MD [address] [place] [address] Referral ID Status Reason Start Date Expiration Date Visits Requested Visits Authorized [id number] Pending Review Specialty Services Required 12/30/2023 12/29/2024 1 1 [facility] for referral (narrative)* Consultation (Routine) - Pending Review Specialty Diagnoses / Procedures Referred By Contemily Referred To Contact Neurology Diagnoses Pain in joints Rosa Isela Haskins APRN-MATTHIEU [address] [place] [address] David Watts MD [address] [address] Referral ID Status Reason Start Date Expiration Date Visits Requested Visits Authorized [id number] Pending Review Specialty Services Required 05/10/2024 05/10/2025 1 1 [facility]* Consultation (Routine) - Closed Specialty Diagnoses / Procedures Referred By Contac t Referred To Contact Neurology Diagnoses Pain in unspecified joint Procedures NV OFFICE/OUTPATIENT NEW LOW MDM 30 MINUTES Rosa Isela Haskins CRNP [address], [place] [address] Phone: tel: fax: David Watts MD [address] [place] [address] Phone: tel: fax: Referral ID Status Reason Start Date Expiration Date V isits Requested Visits Authorized [id number] Closed Consult and Treat 05/12/2024 11/08/2024 1 1 [facility]* Rehabilitation - Outpatient (Routine) - Authorized Specialty Diagnoses / Procedures Referred By Contac t Referred To Contact Physical Therapy Diagnoses Paresthesia Procedures NV OFFICE/OUTPATIENT NEW HIGH MDM 60 MINUTES Aniceto Casarez DO [address] [place] [address] Phone: tel: fax: Ludy Crowley, PT [address] [place] [address] Phone: tel: fax: Referral ID Status Reason Start Date Expiration Date Visits Requested Visits Authorized [id number] Authorized Specialty Services Required 06/09/2024 12/06/2024 30 30 [facility] N[facility]* Rehabilitation - Outpatient (Routine) - Authorized Specialty Diagnoses / Procedures Referred By Contac t Referred To Contact Physical Therapy Diagnoses Paresthesia Procedures NV OFFICE/OUTPATIENT NEW HIGH MDM 60 MINUTES Aniceto Casarez DO [address] [place] [address] Phone: tel: fax: Ludy Crowley, PT [address] [place] [address] Phone: tel: fax: Referral ID Status Reason Start Date Expiration Date Visits Requested Visits Authorized [id number] Authorized Specialty Services Required 06/09/2024 08/02/2024 30 30 [facility] N[facility]* Rehabilitation - Outpatient (Routine) - Authorized Specialty Diagnoses / Procedures Referred By Andriy lambert Referred To Contact Physical Therapy Diagnoses Paresthesia of skin Procedures NV THERAPEUTIC PX 1/> AREAS EACH 15 MIN EXERCISES Aniceto Casarez DO [address] [place] [address] Phone: tel: fax: Ludy Crowley, PT [address] [place] [address] Phone: tel: fax: Referral ID Status Reason Start Date Expiration Date V isits Requested Visits Authorized [id number] Authorized 08/03/2024 08/02/2025 23 23 [facility] [...] section and content) DATE CREATED AUTHOR 02/02/2024 [facility] DATE CREATED AUTHOR AUTHOR'S ORGANIZ ATION 03/31/2024 [facility] DATE CREATED AUTHOR AUTHOR'S ORGANIZ ATION 10/21/2024 [facility] DATE CREATED AUTHOR AUTHOR'S ORGANIZ ATION 11/06/2024 [facility] DATE CREATED AUTHOR AUTHOR'S ORGANIZ ATION 11/18/2024 [facility] EPIC DATE CREATED AUTHOR AUTHOR'S ORGANIZ ATION 03/22/2025 [facility] Care Teams (unrecognized sec tion and content) Team Status: Inactive Member Role Status Dates Pa San MD Attending Provider Active St art: March 17, 2024 End: March 17, 2024 Transmission Inspector Relationship Specialty Start Date End Date Rosa Isela Haskins CRNP [address] [place] [address] Referring Physician Nurse Practitioner 05/13/24 Aniceto Casarez DO [address] [address] Referring Physician Neurology 06/09/24 Transmission Inspector Relationship Specialty Start Date End Date Rosa Isela Haskins CRNP [address] [place] [address] Referring Physician Nurse Practitioner 05/13/24 Aniceto Casarez DO [address] [address] Referring Physician Neurology 06/09/24 Transmission Inspector Relationship Specialty Start Date End Date Rosa Isela Haskins CRNP [address] [place] [address] Referring Physician Nurse Practitioner 05/13/24 Aniceto Casarez DO [address] [address] Referring Physician Neurology 06/09/24 Transmission Inspector Relationship Specialty Start Date End Date Rosa Isela Haskins CRNP [address] [place] [address] Referring Physician Nurse Practitioner 05/13/24 Aniceto Casarez DO [address] [address] Referring Physician Neurology 06/09/24 Transmission Inspector Relationship Specialty Start Date End Date Rosa Isela Haskins CRNP [address] [place] [address] Referring Physician Nurse Practitioner 05/13/24 Aniceto Casarez DO [address] [place] [id number] Referring Physician Neurology 06/09/24 Transmission Inspector Relationship Specialty Start Date End Date Rosa Isela Haskins CRNP [address] [place] [address] Referring Physician Nurse Practitioner 05/13/24 Aniceto Casarez DO [address] [address] Referring Physician Neurology 06/09/24 Transmission Inspector Relationship Specialty Start Date End Date Rosa Isela Haskins CRNP [address] [place] [address] Referring Physician Nurse Practitioner 05/13/24 Aniceto Casarez DO [address] [address] Referring Physician Neurology 06/09/24 Transmission Inspector Relationship Specialty Start Date End Date Rosa Isela Haskins CRNP [address] [place] [address] Referring Physician Nurse Practitioner 05/13/24 Aniceto Casarez DO [address] [address] Referring Physician Neurology 06/09/24 Transmission Inspector Relationship Specialty Start Date End Date Rosa Isela Haskins CRNP [address] [place] [address] Referring Physician Nurse Practitioner 05/13/24 Aniceto Casarez DO [address] [address] Referring Physician Neurology 06/09/24 Transmission Inspector Relationship Specialty Start Date End Date Rosa Isela Haskins CRNP [address] [place] [address] Referring Physician Nurse Practitioner 05/13/24 Aniceto Csaarez DO [address] [address] Referring Physician Neurology 06/09/24 Transmission Inspector Relationship Specialty Start Date End Date Rosa Isela Haskins CRNP [address] [place] [address] Referring Physician Nurse Practitioner 05/13/24 Aniceto Casarez DO [address] [address] Referring Physician Neurology 06/09/24 Transmission Inspector Relationship Specialty Start Date End Date Rosa Isela Haskins CRNP [address] [place] [address] Referring Physician Nurse Practitioner 05/13/24 Aniceto Casarez DO [address] [address] Referring Physician Neurology 06/09/24 Transmission Inspector Relationship Specialty Start Date End Date Rosa Isela Haskins CRNP [address] [place] [address] Referring Physician Nurse Practitioner 05/13/24 Aniceto Casarez DO [address] [address] Referring Physician Neurology 06/09/24 Transmission Inspector Relationship Specialty Start Date End Date Rosa Isela Haskins CRNP [address] [place] [address] Referring Physician Nurse Practitioner 05/13/24 Aniceto Casarez DO [address] [address] Referring Physician Neurology 06/09/24 Transmission Inspector Relationship Specialty Start Date End Date Rosa Isela Haskins CRNP [address] [place] [address] Referring Physician Nurse Practitioner 05/13/24 Aniceto Casarez DO [address] [address] Referring Physician Neurology 06/09/24 Transmission Inspector Relationship Specialty Start Date End Date Rosa Isela Haskins CRNP [address] [place] [address] Referring Physician Nurse Practitioner 05/13/24 Aniceto Casarez DO [address] [address] Referring Physician Neurology 06/09/24 Transmission Inspector Relationship Specialty Start Date End Date Rosa Isela Haskins CRNP [address] [place] [address] Referring Physician Nurse Practitioner 05/13/24 Aniceto Casarez DO [address] [place] [id number] Referring Physician Neurology 06/09/24 Transmission Inspector Relationship Specialty Start Date End Date Rosa Isela Haskins CRNP [address] [place] [address] Referring Physician Nurse Practitioner 05/13/24 Aniceto Casarez DO [address] [place] [id number] Referring Physician Neurology 06/09/24 Transmission Inspector Relationship Specialty Start Date End Date Rosa Isela Haskins CRNP [address] [place] [address] Referring Physician Nurse Practitioner 05/13/24 Aniceto Casarez DO [address] [address] Referring Physician Neurology 06/09/24 Transmission Inspector Relationship Specialty Start Date End Date Rosa Isela Haskins CRNP [address] [place] [address] Referring Physician Nurse Practitioner 05/13/24 Aniceto Casarez DO [address] [address] Referring Physician Neurology 06/09/24 Transmission Inspector Relationship Specialty Start Date End Date Rosa Isela Haskins ELECTRICAL CONSTRUCTION PROJECT MANAGER-[facility] [address] [place] [address] PCP - General Family Medicine 11/27/20 Transmission Inspector Relationship Specialty Start Date End Date Rosa Isela Haskins ELECTRICAL CONSTRUCTION PROJECT [facility] [address] [place] [address] PCP - General Family Medicine 11/27/20 Transmission Inspector Relationship Specialty Start Date End Date Rosa Isela Haskins [facility] [address] [place] [address] PCP - General Family Medicine 11/27/20 Transmission Inspector Relationship Specialty Start Date End Date Rosa Isela Haskins CRNP [address] [place] [address] Referring Physician Nurse Practitioner 05/13/24 Aniceto Casarez DO [address] [address] Referring Physician Neurology 06/09/24 Transmission Inspector Relationship Specialty Start Date End Date Unallocated, Justice Perez MD [address] [place] [address] PCP - General Family Medicine 11/16/24 Rosa Isela Haskins CRNP Referring Physician Nurse Practitioner 05/13/24 Aniceto Casarez DO [address] [place] [address] Referring Physician Neurology 06/09/24 Angela sEtevez PA [address] [place] [address] Physician Resident Program Specialist Neurology 11/16/24 Transmission Inspector Relationship Specialty Start Date End Date Unallocated, Justice Perez MD [address] [place] [address] PCP - General Family Medicine 11/16/24 Rosa Isela Haskins CRNP Referring Physician Nurse Practitioner 05/13/24 Aniceto Casarez DO [address] [place] [address] Referring Physician Neurology 06/09/24 Angela Estevez PA [address] [place] [address] Physician Resident Program Specialist Neurology 11/16/24 Goals (unrecognized section and content) Goals may be documented in a n alternate sectionNot on filedocumented as of this encounterNot on filedocumented as of this encounterNot on filedocumented as of this encounterNot on filedocumented as of this encounter Reason for Visit (unrecogniz ed section and content) Reason Comments Neck Pain Reason Comments Pain Specialty Diagnoses / Procedures Referred By Contemily t Referred To Contact Orthopaedic Surgery Diagnoses Ulnar neuropathy of both upper extremities Lisbeth Grimes, AIDAN [address] [place] [address] Phone: tel: Jr. Carson James, [address] [place] [address] Phone: tel: fax: Referral ID Status Reason Start Date Expiration Date V isits Requested Visits Authorized [id number] Closed Consult and Treat 07/06/2024 01/02/2025 1 [...] BE BASED ON THE PRIMARY CLINICAL RECORDS. [employer] provides no warranty or guarantee of the accuracy or completeness of information in this document.
[2025-03-27 08:01] VITALS: BP 126/82; PULSE 88; TEMP 36.3; O2SAT 94
[2025-03-27 08:21] VITALS: BP 163/110; BP 163/96; PULSE 93; O2SAT 95; O2SAT 96
[2025-03-27] MEDS: 0.9 % SODIUM CHLORIDE 10 ML SYRINGE - SALINE FLUSH INJ (08:23)
[2025-03-27] MEDS: METHYLPREDNISOLONE ACETATE 80 MG/ML VIAL INJ (08:24)
[2025-03-27] MEDS: LIDOCAINE HCL 2% 400 MG/20 ML MDV 4 ML INJ (08:24)
[2025-03-27] MEDS: IOHEXOL 240 MG/ML - 10 ML VIAL 24 MG INJ (08:24)
[2025-03-27] MEDS: BUPIVACAINE HCL 0.25% PF 25 MG/10 ML VIAL INJ (08:24)
--- NOTE | 2025-03-27 08:24 | W.PM.PROCNOT ---
Date of procedure: 03/27/25 Pre-op diagnosis: Pain due to lumbar stenosis with neurogenic claudication Post-op diagnosis: same as pre-op Procedure: Procedure: Bilateral L4-5 transforaminal epidural steroid injection Medications: Bupivacaine 0.25% 2cc, lidocaine 2% 1cc, depomedrol 80mg The patient was seen and examined in the preoperative holding area.? Informed consent was obtained and placed on the chart.? Patient was brought to the medical procedure unit and placed in the prone position where a timeout was completed verifying the correct patient, procedure site, position, and planned special equipment using sterile aseptic technique.? Under direct fluoroscopic visualization a 25-gauge Quincke tipped spinal needle was advanced at level left L4-5 to the designated neural foramen where contrast dye was injected to show adequate spread.? There was no evidence of vascular or adverse uptake.? Epidural spread was appreciated.? The above-mentioned injectate was then placed in a 1.5 mL aliquot preceded by negative aspiration.? The needle was removed. The same procedure, at the same level, was completed on the opposite side. ? Patient was taken to the postprocedural recovery area and monitored for an appropriate length of time before found suitable for discharge in the accompaniment of a responsible adult. Anesthesia: Local Surgeon: Frank Bah Pathology: none sent Condition: stable Disposition: no change
== END 2025-03-27 08:29 | disposition home or self-care (01) ==
LOC: SURGOUT 07:53
PROVIDERS: PCP Nurse Practitioner; Visit Provider Anesthesiology
DX: M48.062 Spinal stenosis, lumbar region with neurogenic claudication (principal)
CPT/HCPCS: 64483; J0665; J1010; Q9966

== ENCOUNTER 2025-04-27 10:14 | Outpatient (OUT) | payer OTHER, SELFPAY ==
--- OUTSIDE RECORDS SUMMARY | 2025-04-27 10:17 | XMS_ITS | Encounter Summary ---
Author Organization [facility] Address [address] [place] [address] Care Team Providers Care Market Development Executive Name Role Phone Haskins Margy LANDON Unavailable [phone] Aniket Casarez DO Unavailable [phone] Angela Estevez Unavailable Unallocated, Noms Provider Primary Care Provi hung Encounter Details Date Type Department Care Team (Late st Contact Info) Description 11/04/2024 External Result Encounter CATHY BUSTAMANTE [address] [place] [phone] Lisbeth Middleton NP Social History Tobacco [...] characteristic abnormality. There is a partially lumbarized [id number] body. At the L5-S1 level disc osteophyte [...] MD on 11/04/2024 11:30 AM Lisbeth Middleton OFFAL ROLLER IMG MRI PROCEDURES Final Result documented in this encounter Visit Diagnoses Not on filedocumented in this encounter Care Teams Market Development Executive Relationship Specialty Start Date End Date Unallocated, Noms Provider, [address] [place] [address] PCP - General Family Medicine 11/16/24 Margy Haskins CRNP Referring Physician Nurse Practitioner 05/13/24 Aniket Casarez DO [address] [place] [phone] Referring Physician Neurology 06/09/24 Angela Estevez PA [address] [place] [address] Physician Senior C Software Developer Neurology 11/16/24 documented as of this encounter
--- OUTSIDE RECORDS SUMMARY | 2025-04-27 10:17 | XMS_ITS | Encounter Summary ---
Author Organization [facility] Address [address] [place] [address] Care Team Providers Care Athletics Teacher Name Role Phone Haskins Margy LANDON Unavailable [phone] Aniket Casarez DO Unavailable [phone] Angela Estevez Unavailable Unallocated, Noms Provider Primary Care Provi hung Encounter Details Date Type Department Care Team (Late st Contact Info) Description 09/26/2024 External Result Encounter CATHY BUSTAMANTE [address] [place] [phone] Lisbeth Middleton NP Social History Tobacco [...] PM EST THIS EXAM WAS PERFORMED AT [facility] STUDY: MR CERVICAL SPINE WO CONT [...] on filedocumented in this encounter Care Teams Athletics Teacher Relationship Specialty Start Date End Date Unallocated, Noms MD Chris [address] [place] [address] PCP - General Family Medicine 11/16/24 Margy Haskins CRNP Referring Physician Nurse Practitioner 05/13/24 Aniket Casarez DO [address] [place], [place] [phone] Referring Physician Neurology 06/09/24 Angela Estevez PA [address] [place] [address] Physician Embroidery Specialist Neurology 11/16/24 documented as of this encounter
--- OUTSIDE RECORDS SUMMARY | 2025-04-27 10:17 | XMS_ITS | Encounter Summary ---
Author Organization [employer] Address [id number] [address] [place] [address] Care Team Providers Care Commercial Artist Name Role Phone Poncho Doran TEACHER HOME THERAPY-BOILER OUT Primary Care Provider + Encounter Details Date Type Department Care Team (Late st Contact Info) Description 10/06/2024 Orders Only [facility] Internal Medicine - Family Medicine [address] [place] [address] Ref Prov, [place] [address] Social History Tobacco Use Types Packs/Day Years [...] documented as of this encounter Care Teams Commercial Artist Relationship Specialty Start Date End Date Poncho Doran, YADIRA-BOILER OUT [address] [place] [address] PCP - General Internal Medicine 02/27/25 documented as of this encounter
--- OUTSIDE RECORDS SUMMARY | 2025-04-27 10:17 | XMS_ITS | Clinical Summary ---
Author Organization [facility] Address [address] [place] [address] Care Team Providers Care Metal Patternmaker Apprentice Name Role Phone Margy Haskins LANDON Unavailable [phone] Aniket Casarez DO Unavailable [phone] Angela Estevez Unavailable Unallocated, Noms Provider MD [...] 08/20/2023 Multiple joint pain 06/20/2024 Paresthesia 06/20/2024 Family History Relation Name Status Comments Father [...] 1966 FOBT 1966 Sigmoidoscopy 1966 Influenza Vaccine (#1) 2025 Colorectal Cancer Screening 05/03/2027 FIT-DNA 05/03/2027 05/03/2024 Insurance [employer] Care Teams Metal Patternmaker Apprentice Relationship Specialty Start Date End Date Unallocated, Noms Provider, [address] [place], [place] [phone] PCP - General Family Medicine 11/16/24 Margy Haskins CRNP Referring Physician Nurse Practitioner 05/13/24 Aniket Casarez DO [address] [place] [address] Referring Physician Neurology 06/09/24 Angela Estevez PA [address] [facility] [address] [place] [address] Physician Exchange Trouble Shooter Neurology 11/16/24
--- OUTSIDE RECORDS SUMMARY | 2025-04-27 10:18 | XMS_ITS | Encounter Summary ---
Author Organization [employer] Address [id number] [address] [place] [address] Care Team Providers Care Wine Bottle Inspector Name Role Phone Poncho Doran CERTIFIED MEETING PROFESSIONAL-REGULATOR ASSEMBLER Primary Care Provider + Encounter Details Date Type Department Care Team (Late st Contact Info) Description 10/20/2024 Orders Only [facility] Internal Medicine - Family Medicine [address] [place] [address] Ref Prov, [place] [address] Social History Tobacco Use Types Packs/Day Years [...] documented as of this encounter Care Teams Wine Bottle Inspector Relationship Specialty Start Date End Date Poncho Doran, CERTIFIED MEETING PROFESSIONAL-REGULATOR ASSEMBLER [address] [place] [address] PCP - General Internal Medicine 02/27/25 documented as of this encounter
--- OUTSIDE RECORDS SUMMARY | 2025-04-27 10:18 | XMS_ITS | Encounter Summary ---
Author Organization [employer] Address [id number] [address] [place] [address] Care Team Providers Care Developmental Writing Instructor Name Role Phone Poncho Doran MARKETING AGENT-INVENTORY ADMINISTRATOR Primary Care Provider + Encounter Details Date Type Department Care Team (Late st Contact Info) Description 05/11/2024 Orders Only [facility] Internal Medicine - Family Medicine [address] [place] [address] Margy Haskins, MARKETING AGENT-INVENTORY ADMINISTRATOR [address] [place] [address] Positive CATHY (antinuclear antibody); Pain in other [...] to Rheumatology ([facility]) (05/05/2024) us Margy Haskins APRN-INVENTORY ADMINISTRATOR OUTPATIENT REFERRAL ORDERABLES Final Result MANUALLY TRANSCRIBED [...] documented as of this encounter Care Teams Developmental Writing Instructor Relationship Specialty Start Date End Date Poncho Doran, YADIRA-INVENTORY ADMINISTRATOR [address] [place] [address] PCP - General Internal Medicine 02/27/25 documented as of this encounter
--- OUTSIDE RECORDS SUMMARY | 2025-04-27 10:18 | XMS_ITS | Encounter Summary ---
Author Organization [employer] Address [facility] [id number] [address] [place] [address] Care Team Providers Care Dry Color Mixer Name Role Phone Poncho Doran ROVING INSPECTOR-BAG PRESSER Primary Care Provider + Encounter Details Date Type Department Care Team (Late st Contact Info) Description 02/02/2024 Telephone [facility] Internal Medicine - Family Medicine [address] [place] [address] Gabriela Vunog CMA Social History Tobacco Use Types Packs/Day [...] documented as of this encounter Care Teams Dry Color Mixer Relationship Specialty Start Date End Date Poncho Doran, ROVING INSPECTOR-BAG PRESSER [address] [place] [address] PCP - General Internal Medicine 02/27/25 documented as of this encounter
--- OUTSIDE RECORDS SUMMARY | 2025-04-27 10:18 | XMS_ITS | Encounter Summary ---
Author Organization [employer] [facility] tem Address [id number] [address] [place] [address] Care Team Providers Care Workday Consultant Name Role Phone Poncho Doran DIRECTOR OF DEMENTIA OPERATIONS-FLATWORK PRESSER Primary Care Provider + Encounter Details Date Type Department Care Team (Late st Contact Info) Description 02/02/2024 Telephone [facility] Internal Medicine - Family Medicine [address] [place] [address] Noy Bruno CMA Social History Tobacco Use [...] inform. I strongly recommend him seeing a cement finisher apprentice. Nextstep will be [place] documented in this [...] documented as of this encounter Care Teams Workday Consultant Relationship Specialty Start Date End Date Poncho Doran, YADIRA-MATTHIEU [address] [place] [address] PCP - General Internal Medicine 02/27/25 documented as of this encounter
--- OUTSIDE RECORDS SUMMARY | 2025-04-27 10:18 | XMS_ITS | Clinical Summary ---
Author Organization [employer] [facility] tem Address [id number] [address] [place] [address] Care Team Providers Care Answering Service Operator Name Role Phone Poncho Doran AUDIT ANALYST-PARACHUTE MENDER Primary Care Provider + Allergies Active Allergy [...] on file Insurance [employer] Care Teams Answering Service Operator Relationship Specialty Start Date End Date Poncho Doran, YADIRA-PARACHUTE MENDER [address] [place] [address] PCP - General Internal Medicine 02/27/25
--- OUTSIDE RECORDS SUMMARY | 2025-04-27 10:18 | XMS_ITS | Encounter Summary ---
Author Organization [facility] Address [address] [place] [address] Care Team Providers Care Landscape Contractor Name Role Phone Margy Haskins Unavailable [phone] Aniket Casarez DO Unavailable [phone] Angela Estevez Unavailable Unallocated, Noms Provider Primary Care Provi hung Reason for Visit * Reason Onset Date Comments Med Refill 07/13/2024 Encounter Details Date Type Department Care Team (Late st Contact Info) Description 07/13/2024 Refill [facility] [address] [place] [address] Nandini Cox PTA Social History Tobacco Use [...] on filedocumented in this encounter Care Teams Landscape Contractor Relationship Specialty Start Date End Date Unallocated, Noms Provider, [address] [place] [address] PCP - General Family Medicine 11/16/24 Margy Haskins CRNP Referring Physician Nurse Practitioner 05/13/24 Aniket Casarez DO [address] [place] [address] Referring Physician Neurology 06/09/24 Angela Estevez PA 5433 [facility] [address] [place], [place] [id number] Physician Underwater Roboticist Neurology 11/16/24 documented as of this encounter
--- OUTSIDE RECORDS SUMMARY | 2025-04-27 10:18 | XMS_ITS | Encounter Summary ---
Author Organization [employer] Address [id number] [address] [place] [address] Care Team Providers Care Pivot End Polisher Name Role Phone Poncho Doran DIRECTOR CAREER SERVICES-NAPPER FIXER Primary Care Provider + Encounter Details Date Type Department Care Team (Late st Contact Info) Description 03/22/2024 Telephone [facility] Internal Medicine - Family Medicine [address] [place] [phone] Gabriela Vuong CMA Social History Tobacco Use [...] documented as of this encounter Care Teams Pivot End Polisher Relationship Specialty Start Date End Date Poncho Doran, DIRECTOR CAREER SERVICES-NAPPER FIXER [address] [place] [address] PCP - General Internal Medicine 02/27/25 documented as of this encounter
--- OUTSIDE RECORDS SUMMARY | 2025-04-27 10:19 | XMS_ITS | CCD ---
Author Organization [facility] Care Team Providers Care Senior Engineering Team Leader Name Role Phone ANG, ROSA ISELA Referring [...] CASAREZ Referring Unavailable TATTERSNANDINI CASTANEDA Attending Unavailable HERMELINDO, ANICETO Referring Unavailable HERMELINDO, ANICETO Attending Unavailable GRIMESLISBETH NUNEZ Attending Unavailable TATTERSNANDINI CASTANEDA Attending Unavailable HERMELINDO, CHRISTJMER Referring Unavailable TATTERSALL, NANDINI Attending Unavailable HERMELINDO, CHRISTINGE Referring Unavailable PA MATHEWS Attending Unavailable GRIMESLISBETH NUNEZ Referring Unavailable TATTERSNANDINI CASTANEDA Attending Unavailable HERMELINDO, ANICETO Referring Unavailable CARLINELUDY AGEE Attending Unavailable HERMELINDO, ANICETO Referring Unavailable CARLINELUDY AGEE Attending Unavailable HERMELINDO, ANICETO Referring Unavailable DANNI LUNA Attending Unavailable HERMELINDO, CHRISTJMER Referring Unavailable TATTERSALL, NANDINI Attending Unavailable HERMELINDO, CHRISTINGE Referring Unavailable CARLINE, LUDY Alvares Attending Unavailable HERMELINDO, MAURICEER Referring Unavailable GRIMESLISBETH NUNEZ Attending Unavailable ANGELA ESTEVEZ Attending Unavailable Giedraitis , Andrius Vytvirginie Attending Unavailable Giedraitis MD, Andrius Vytautelina Attending Unavailable Giedraitis MD, Andrius Vytautelina Attending Unavailable Giedraitis MD, Andrius Vytautas Attending Unavailable Giedraitis MD, Andrius Vytautas Attending Unavailable Giedraitis MD, Andrius Vytautelina Attending Unavailable Allergies Allergy Classification [...] Drug Class(es) Dates Sig (Normalized) Sig (Original) [id number] 0.3 ml EPINEPHrine 1 mg/ml auto-injector (1 [...] Ole Richardson MD on 11/06/2024 6:08 AM [facility] MR LUMBAR SPINE WO CONTon MR LUMBAR [...] Mcdonnell MD on 11/04/2024 11:30 AM Normal [facility] MR CERVICAL SPINE WO CONTon 09-26-2024 [...] Cristhian Lilly on 09/26/2024 1:29 PM Normal [facility] B. burgdorferi IgG+IgM Qn (S )on 07-21-2024 LYME TOTAL <0.2 Normal <0.9 [facility] Comment on above: [...] Performed By: #### 8 2477-, 1987-12, 2638-10, 72934-1 #### [facility] ([id number]) [address], [address] [place] [address] CRP [Mass/Vol]on 07-21-2024 C REACTIVE PROTEIN 0.9 mg/dL High 0.000-0.744 [facility] Comment on above: Performed By: #### 8 2477-, 1987-12, 2638-3, 59526-3 #### [facility] ([id number]) [address] [place] [address] ESR (Bld) [Velocity]on 07-21 [facility] ESR Photometric method (Bld) [Velocity]on 07-21-2024 ESR, ERYTHROCYTE SEDIMENTATION RATE 10 mm/h Normal 0-20 [facility] Comment on above: Performed By: #### 8 2477-1, 1987-12, 2639-3, 53062-0 #### [facility] ([id number]) [address], [address] [place] [address] Myoglobin [Mass/Vol]on 07-21 SERUM MYOGLOBIN 25.3 ng/mL Normal 17.4-105.7 [facility] Comment on above: Performed By: #### 8 2477-, 1987-12, 2638-3, 98416-7 #### [facility] ([id number]) [address], [address] [place] [address] Sedimentation rate, automate don 07-21-2024 ESR (Bld) [Velocity] 10 mm/h 0 - 20 mm/h [facility] Comment on above: PERFORMED AT [facility] [address],[place] [address] EMG 2 Extremitieson 07-05-20 24 Ulnar neuropathy bilateral, axonal loss, non localizable Carpal tunnel, minimal bilaterally [facility] NVC 11-12 Nerveson 4 Ulnar neuropathy bilateral, axonal loss, non localizable Carpal tunnel syndrome bilaterally, minimal bilaterally [facility] Antinuclear Antibodieson 03-17-2024 Antinuclear Abs, IFA Negative Normal . [facility] Comment on above: Result Comment: Nega tive <1:80 Borderline 1:80 Positive >1:80 ICAP nomenclature: [id number] For more information about Hep-2 cell patterns use ANApatterns.org, the official website for the International Consensus on Antinuclear Antibody (CATHY) Patterns (ICAP). Performed at: [facility] [id number] Collar Packer: Mil Guzman PhD, Phone: [phone] Performed By: #### T SH3, PP, ESR, CBC, CMP, CK, ADDONUAPLUS, CRP, T4F #### [facility] [address] [place] [address] #### HBCAB, RPR W RFX, HBSAG, HCV RX PCR, HBSAB, ALDOLASE #### [facility] , Activated partial thrombopla stin time (aPTT) in platelet poor plasma by coagulation aOrdered By: Pa San on 03-17-2024 aPTT Coag (PPP) [Time] 34.1 s 25.1-36.5 [facility] Comment on above: A hematocrit value g reater than 55% may lead to inaccurate results in coagulation testing. Patients having hematocrit values >55% require a special collection tube for coagulation studies. Please contact the laboratory at [phone] for redraw instructions. Alanine aminotransferase [En zymatic activity/volume] in Serum or PlasmaOrdered By: Pa San on 03-17-2024 ALT [Catalytic activity/Vol] 39 U/L Normal 7-52 [facility] Comment on above: Performed By: #### T SH3, PP, ESR, CBC, CMP, CK, ADDONUAPLUS, CRP, T4F #### [facility] [address] [place] [address] #### HBCAB, RPR W RFX, HBSAG, HCV RX PCR, HBSAB, ALDOLASE #### [facility] , Albumin [Mass/volume] in Ser um or Plasma by Bromocresol green (BCG) dye binding methoOrdered By: Pa San on 03-17-2024 Albumin BCG dye [Mass/Vol] 4.6 g/dL 3.5-5.7 [facility] Aldolaseon 03-17-2024 Aldolase 4.7 U/L Normal 3.3-10.3 [facility] Comment on above: Result Comment: Perf ormed at: CB - [facility] [address] [id number] Collar Packer: Mil Guzman PhD, Phone: [phone] PERFORMED BY: [place] [phone] PATHOLOGIST FERRY TERMINAL AGENT JOSE ROGERS M.D. Performed By: #### T SH3, PP, ESR, CBC, CMP, CK, ADDONUAPLUS, CRP, T4F #### [place] [address] [place] #### HBCAB, RPR W RFX, HBSAG, HCV RX PCR, HBSAB, ALDOLASE #### [facility] , Alkaline phosphatase [Enzyma tic activity/volume] in Serum or PlasmaOrdered By: Pa San on 03-17-2024 ALP [Catalytic activity/Vol] 73 U/L Normal 34-104 [facility] Comment on above: Performed By: #### T SH3, PP, ESR, CBC, CMP, CK, ADDONUAPLUS, CRP, T4F #### [place] [address] [place] #### HBCAB, RPR W RFX, HBSAG, HCV RX PCR, HBSAB, ALDOLASE #### [facility] , Antithyroglobulin Abon 03-17 Antithyroglobulin Ab <1.0 Normal 0.0-0.9 [facility] Comment on above: Result Comment: Thyr oglobulin Antibody measured by [employer] It should be noted that the presence of thyroglobulin antibodies may not be pathogenic nor diagnostic, especially at very low levels. The assay fleet maintenance foreman has found that four percent of individuals without evidence of thyroid disease or autoimmunity will have positive TgAb levels up to 4 IU/mL. Performed at: [address] [id number] Collar Packer: Mil Guzman PhD, Phone: [phone] Performed By: #### T SH3, PP, ESR, CBC, CMP, CK, ADDONUAPLUS, CRP, T4F #### [place] [address] [place] #### HBCAB, RPR W RFX, HBSAG, HCV RX PCR, HBSAB, ALDOLASE #### [facility] , Aspartate aminotransferase [ Enzymatic activity/volume] in Serum or PlasmaOrdered By: Pa San on 03-17-2024 AST [Catalytic activity/Vol] 28 U/L Normal 13-39 [facility] Comment on above: Performed By: #### T SH3, PP, ESR, CBC, CMP, CK, ADDONUAPLUS, CRP, T4F #### [address] #### HBCAB, RPR W RFX, HBSAG, HCV RX PCR, HBSAB, ALDOLASE #### [facility] , Automated basophil %Ordered By: Pa San on 03-17-2024 Basophils/100 WBC (Bld) 1.1 % Normal . [facility] Comment on above: Performed By: #### T SH3, PP, ESR, CBC, CMP, CK, ADDONUAPLUS, CRP, T4F #### [address] #### HBCAB, RPR W RFX, HBSAG, HCV RX PCR, HBSAB, ALDOLASE #### [facility] , Automated basophil countOrde red By: Pa San on 03-17-2024 Basophils (Bld) [#/Vol] 0.1 10*3/uL Normal 0.0-0.2 [facility] Comment on above: Performed By: #### T SH3, PP, ESR, CBC, CMP, CK, ADDONUAPLUS, CRP, T4F #### [place] [address] [place] #### HBCAB, RPR W RFX, HBSAG, HCV RX PCR, HBSAB, ALDOLASE #### [facility] , Automated blood monocyte cou ntOrdered By: Pa Blackmanrow on 03-17-2024 Monocytes (Bld) [#/Vol] 0.6 10*3/uL Normal 0.0-0.8 [facility] Comment on above: Performed By: #### T SH3, PP, ESR, CBC, CMP, CK, ADDONUAPLUS, CRP, T4F #### [place] [address] [place] #### HBCAB, RPR W RFX, HBSAG, HCV RX PCR, HBSAB, ALDOLASE #### [facility] , Automated eosinophil %Ordere d By: Padewayne San on 03-17-2024 Eosinophils/100 WBC (Bld) 2.4 % Normal . [facility] Comment on above: Performed By: #### T SH3, PP, ESR, CBC, CMP, CK, ADDONUAPLUS, CRP, T4F #### [facility] [address] #### HBCAB, RPR W RFX, HBSAG, HCV RX PCR, HBSAB, ALDOLASE #### [facility] , Automated eosinophil countOr dered By: Padewayne San on 03-17-2024 Eosinophils (Bld) [#/Vol] 0.2 10*3/uL Normal 0.0-0.45 [facility] Comment on above: Performed By: #### T SH3, PP, ESR, CBC, CMP, CK, ADDONUAPLUS, CRP, T4F #### [facility] [address] [place] [address] #### HBCAB, RPR W RFX, HBSAG, HCV RX PCR, HBSAB, ALDOLASE #### [facility] , Automated epithelial cells c ount in urine sediment (number/area)Ordered By: Pa San on 03-17-2024 Epithelial cells Auto (Urine sed) [#/Area] None seen [HPF] 0-2 [facility] Automated monocyte %Ordered By: Pa San on 03-17-2024 Monocytes/100 WBC (Bld) 9.3 % Normal . [facility] Comment on above: Performed By: #### T SH3, PP, ESR, CBC, CMP, CK, ADDONUAPLUS, CRP, T4F #### [facility] [address] [place] [address] [place] #### HBCAB, RPR W RFX, HBSAG, HCV RX PCR, HBSAB, ALDOLASE #### [facility] , Automated neutrophil %Ordere d By: Pa San on 03-17-2024 Neutrophils/100 WBC (Bld) 62.7 % Normal . [facility] Comment on above: Performed By: #### T SH3, PP, ESR, CBC, CMP, CK, ADDONUAPLUS, CRP, T4F #### [place] [address] [place] #### HBCAB, RPR W RFX, HBSAG, HCV RX PCR, HBSAB, ALDOLASE #### [facility] , Bacteria [Presence] in Urine by AutomatedOrdered By: Pa San on 03-17-2024 Bacteria Auto Ql (U) None seen [HPF] None Seen [facility] Bilirubin Test strip Ql (U)O rdered By: Pa San on 03-17-2024 Bilirubin Ql (U) Negative Negative [facility] Bilirubin.total [Mass/volume ] in Serum or PlasmaOrdered By: Pa San on 03-17-2024 Bilirubin [Mass/Vol] 0.4 mg/dL Normal 0.3-1.0 [facility] Comment on above: Performed By: #### T SH3, PP, ESR, CBC, CMP, CK, ADDONUAPLUS, CRP, T4F #### [facility] [address] [place] [address] [place] #### HBCAB, RPR W RFX, HBSAG, HCV RX PCR, HBSAB, ALDOLASE #### [facility] , C reactive protein [Mass/vol ume] in Serum or PlasmaOrdered By: Pa Blackmanrow on 03-17-2024 CRP [Mass/Vol] < 0.5 mg/dL 0.0-0.5 [facility] C-Reactive Proteinon 024 CRP [Mass/Vol] mg/L Normal 0.0-0.5 [facility] Comment on above: Performed By: #### T SH3, PP, ESR, CBC, CMP, CK, ADDONUAPLUS, CRP, T4F #### [facility] [address] [place] [address] [place] #### HBCAB, RPR W RFX, HBSAG, HCV RX PCR, HBSAB, ALDOLASE #### [facility] , Calcium [Mass/volume] in Ser um or PlasmaOrdered By: Pa San on 03-17-2024 Calcium [Mass/Vol] 9.1 mg/dL Normal 8.6-10.3 [facility] Comment on above: Performed By: #### T SH3, PP, ESR, CBC, CMP, CK, ADDONUAPLUS, CRP, T4F #### [facility] [address] [place] [address] [place] #### HBCAB, RPR W RFX, HBSAG, HCV RX PCR, HBSAB, ALDOLASE #### [facility] , Carbon dioxide, total [Moles /volume] in Serum or PlasmaOrdered By: Pa San on 03-17-2024 CO2 [Moles/Vol] 26.0 mmol/L Normal 21.0-31.0 [facility] Comment on above: Performed By: #### T SH3, PP, ESR, CBC, CMP, CK, ADDONUAPLUS, CRP, T4F #### [facility] [address] [place] [address] [place] #### HBCAB, RPR W RFX, HBSAG, HCV RX PCR, HBSAB, ALDOLASE #### [facility] , Chloride [Moles/volume] in S caity or PlasmaOrdered By: Pa San on 03-17-2024 Chloride [Moles/Vol] 106 mmol/L Normal 98-107 [facility] Comment on above: Performed By: #### T SH3, PP, ESR, CBC, CMP, CK, ADDONUAPLUS, CRP, T4F #### [facility] [address] [place] [address] [place] #### HBCAB, RPR W RFX, HBSAG, HCV RX PCR, HBSAB, ALDOLASE #### [facility] , Chromatin Antibodyon 024 Chromatin Antibody <0.2 Normal 0.0-0.9 [facility] Comment on above: Result Comment: Perf ormed at: - [facility] [id number] [place], [place] [id number] Collar Packer: Mil Guzman PhD, Phone: [phone] PERFORMED BY: [place] [address] PATHOLOGIST FERRY TERMINAL AGENT JOSE ROGERS M.D. Performed By: #### T SH3, PP, ESR, CBC, CMP, CK, ADDONUAPLUS, CRP, T4F #### [address] #### HBCAB, RPR W RFX, HBSAG, HCV RX PCR, HBSAB, ALDOLASE #### [facility] , Coagulation Profileon 2023 aPTT Coag (Bld) [Time] 34.1 s Normal 25.1-36.5 [facility] Comment on above: Result Comment: A he matocrit value greater than 55% may lead to inaccurate results in coagulation testing. Patients having hematocrit values >55% require a special collection tube for coagulation studies. Please contact the laboratory at [phone] for redraw instructions. PERFORMED BY: [place] [address] PATHOLOGIST FERRY TERMINAL AGENT JOSE ROGERS M.D. Performed By: #### T SH3, PP, ESR, CBC, CMP, CK, ADDONUAPLUS, CRP, T4F #### [address] #### HBCAB, RPR W RFX, HBSAG, HCV RX PCR, HBSAB, ALDOLASE #### [facility] , Color of Urine by AutoOrdere d By: Pa San on 03-17-2024 Color (U) Yellow Normal Yellow [facility] Comment on above: Order Comment: Name Collection Type:: Clean-Voided Midstream Performed By: #### T SH3, PP, ESR, CBC, CMP, CK, ADDONUAPLUS, CRP, T4F #### [place] [address] [place] #### HBCAB, RPR W RFX, HBSAG, HCV RX PCR, HBSAB, ALDOLASE #### [facility] , Complement C3on 03-17-2024 Complement C3 132 mg/dL Normal 82-167 [facility] Comment on above: Result Comment: Perf ormed at: - [facility] [id number] Collar Packer: Mil Guzman PhD, Phone: [phone] Performed By: #### T SH3, PP, ESR, CBC, CMP, CK, ADDONUAPLUS, CRP, T4F #### [address] #### HBCAB, RPR W RFX, HBSAG, HCV RX PCR, HBSAB, ALDOLASE #### [facility] , Complement C4on 03-17-2024 Complement C4 26 mg/dL Normal 12-38 [facility] Comment on above: Performed By: #### T SH3, PP, ESR, CBC, CMP, CK, ADDONUAPLUS, CRP, T4F #### [address] #### HBCAB, RPR W RFX, HBSAG, HCV RX PCR, HBSAB, ALDOLASE #### [facility] , Complement Total (CH50)on Complement Total (CH50) >60 Normal >41 [facility] Comment on above: Result Comment: [...] determine out of range values. Performed at: [facility] [id number] Collar Packer: Mil Guzman PhD, Phone: [phone] PERFORMED BY: [place] [address] PATHOLOGIST FERRY TERMINAL AGENT JOSE ROGERS M.D. Performed By: #### T SH3, PP, ESR, CBC, CMP, CK, ADDONUAPLUS, CRP, T4F #### [place] [address] [place] #### HBCAB, RPR W RFX, HBSAG, HCV RX PCR, HBSAB, ALDOLASE #### [facility] , Complete Blood Count Auto Di ffon 03-17-2024 Mean Corpuscular HGB Conc 34.2 g/dL Normal 32.5-35.6 [facility] Comment on above: Performed By: #### T SH3, PP, ESR, CBC, CMP, CK, ADDONUAPLUS, CRP, T4F #### [place] [address] [place] #### HBCAB, RPR W RFX, HBSAG, HCV RX PCR, HBSAB, ALDOLASE #### [facility] , NRBC% 0.2 /100{WBC} Normal 0-0.5 [facility] Comment on above: Performed By: #### T SH3, PP, ESR, CBC, CMP, CK, ADDONUAPLUS, CRP, T4F #### [place] [address] [place] #### HBCAB, RPR W RFX, HBSAG, HCV RX PCR, HBSAB, ALDOLASE #### [facility] , Comprehensive Metabolic Pane solomon 03-17-2024 Albumin [Mass/Vol] 4.6 g/dL Normal 3.5-5.7 [facility] Comment on above: Performed By: #### T SH3, PP, ESR, CBC, CMP, CK, ADDONUAPLUS, CRP, T4F #### [place] [address] [place] #### HBCAB, RPR W RFX, HBSAG, HCV RX PCR, HBSAB, ALDOLASE #### [facility] , GFR/1.73 sq M.predicted MDRD (S/P/Bld) [Vol rate/Area] mL/min/{1.73_m2} Normal [facility] Comment on above: Performed By: #### T SH3, PP, ESR, CBC, CMP, CK, ADDONUAPLUS, CRP, T4F #### [address] #### HBCAB, RPR W RFX, HBSAG, HCV RX PCR, HBSAB, ALDOLASE #### [facility] , Creatine kinase [Enzymatic a ctivity/volume] in Serum or PlasmaOrdered By: Pa San on 03-17-2024 CK [Catalytic activity/Vol] 79 U/L Normal 30-223 [facility] Comment on above: Result Comment: PERF ORMED BY: [place] [address] PATHOLOGIST FERRY TERMINAL AGENT JOSE ROGERS M.D. Performed By: #### T SH3, PP, ESR, CBC, CMP, CK, ADDONUAPLUS, CRP, T4F #### [address] #### HBCAB, RPR W RFX, HBSAG, HCV RX PCR, HBSAB, ALDOLASE #### [facility] , Creatinine [Mass/volume] in Serum or PlasmaOrdered By: Pa San on 03-17-2024 Creatinine [Mass/Vol] 0.85 mg/dL Normal 0.70-1.30 [facility] Comment on above: Performed By: #### T SH3, PP, ESR, CBC, CMP, CK, ADDONUAPLUS, CRP, T4F #### [address] #### HBCAB, RPR W RFX, HBSAG, HCV RX PCR, HBSAB, ALDOLASE #### [facility] , Dipstick and Microscopicon 0 03-17-2024 Appearance (U) Clear Normal Clear [facility] Comment on above: Order Comment: Name Collection Type:: Clean-Voided Midstream Performed By: #### T SH3, PP, ESR, CBC, CMP, CK, ADDONUAPLUS, CRP, T4F #### [address] #### HBCAB, RPR W RFX, HBSAG, HCV RX PCR, HBSAB, ALDOLASE #### [facility] , Bacteria,Urine None Seen Normal None Seen [facility] Comment on above: Order Comment: Name Collection Type:: Clean-Voided Midstream Performed By: #### T SH3, PP, ESR, CBC, CMP, CK, ADDONUAPLUS, CRP, T4F #### [address] #### HBCAB, RPR W RFX, HBSAG, HCV RX PCR, HBSAB, ALDOLASE #### [facility] , Bilirubin,Urine Negative Normal Negative [facility] Comment on above: Order Comment: Name Collection Type:: Clean-Voided Midstream Performed By: #### T SH3, PP, ESR, CBC, CMP, CK, ADDONUAPLUS, CRP, T4F #### [address] #### HBCAB, RPR W RFX, HBSAG, HCV RX PCR, HBSAB, ALDOLASE #### [facility] , Glucose Ql (U) Normal Normal Normal [facility] Comment on above: Order Comment: Name Collection Type:: Clean-Voided Midstream Performed By: #### T SH3, PP, ESR, CBC, CMP, CK, ADDONUAPLUS, CRP, T4F #### [address] #### HBCAB, RPR W RFX, HBSAG, HCV RX PCR, HBSAB, ALDOLASE #### [facility] , Hyaline Casts,Urine None Seen Normal 0-8 [facility] Comment on above: Order Comment: Name Collection Type:: Clean-Voided Midstream Result Comment: PERF ORMED BY: [place] [address] PATHOLOGIST FERRY TERMINAL AGENT JOSE ROGERS M.D. Performed By: #### T SH3, PP, ESR, CBC, CMP, CK, ADDONUAPLUS, CRP, T4F #### [address] #### HBCAB, RPR W RFX, HBSAG, HCV RX PCR, HBSAB, ALDOLASE #### [facility] , Ketones Ql (U) Negative Normal Negative [facility] Comment on above: Order Comment: Name Collection Type:: Clean-Voided Midstream Performed By: #### T SH3, PP, ESR, CBC, CMP, CK, ADDONUAPLUS, CRP, T4F #### [address] #### HBCAB, RPR W RFX, HBSAG, HCV RX PCR, HBSAB, ALDOLASE #### [facility] , Leukocyte esterase Test strip Ql (U) Negative Normal Negative [facility] Comment on above: Order Comment: Name Collection Type:: Clean-Voided Midstream Performed By: #### T SH3, PP, ESR, CBC, CMP, CK, ADDONUAPLUS, CRP, T4F #### [address] #### HBCAB, RPR W RFX, HBSAG, HCV RX PCR, HBSAB, ALDOLASE #### [facility] , Nitrite,Urine Negative Normal Negative [facility] Comment on above: Order Comment: Name Collection Type:: Clean-Voided Midstream Performed By: #### T SH3, PP, ESR, CBC, CMP, CK, ADDONUAPLUS, CRP, T4F #### [address] #### HBCAB, RPR W RFX, HBSAG, HCV RX PCR, HBSAB, ALDOLASE #### [facility] , Occult Blood,Urine Negative Normal Negative [facility] Comment on above: Order Comment: Name Collection Type:: Clean-Voided Midstream Performed By: #### T SH3, PP, ESR, CBC, CMP, CK, ADDONUAPLUS, CRP, T4F #### [address] #### HBCAB, RPR W RFX, HBSAG, HCV RX PCR, HBSAB, ALDOLASE #### [facility] , Protein,Urine Negative Normal Negative [facility] Comment on above: Order Comment: Name Collection Type:: Clean-Voided Midstream Performed By: #### T SH3, PP, ESR, CBC, CMP, CK, ADDONUAPLUS, CRP, T4F #### [facility] [address] [place] [address] #### HBCAB, RPR W RFX, HBSAG, HCV RX PCR, HBSAB, ALDOLASE #### [facility] , RBC LM.HPF (Urine sed) [#/Area] 0 /[HPF] Normal 0-4 [facility] Comment on above: Order Comment: Name Collection Type:: Clean-Voided Midstream Performed By: #### T SH3, PP, ESR, CBC, CMP, CK, ADDONUAPLUS, CRP, T4F #### [address] #### HBCAB, RPR W RFX, HBSAG, HCV RX PCR, HBSAB, ALDOLASE #### [facility] , Specificy [place],Urine 1.014 Normal 1.001-1.030 [facility] Comment on above: Order Comment: Name Collection Type:: Clean-Voided Midstream Performed By: #### T SH3, PP, ESR, CBC, CMP, CK, ADDONUAPLUS, CRP, T4F #### [address] #### HBCAB, RPR W RFX, HBSAG, HCV RX PCR, HBSAB, ALDOLASE #### [facility] , Squamous Epithelial Cell,Urine None Seen Normal 0-2 [facility] Comment on above: Order Comment: Name Collection Type:: Clean-Voided Midstream Performed By: #### T SH3, PP, ESR, CBC, CMP, CK, ADDONUAPLUS, CRP, T4F #### [address] #### HBCAB, RPR W RFX, HBSAG, HCV RX PCR, HBSAB, ALDOLASE #### [facility] , Urobilinogen,Urine Normal Normal Normal [facility] Comment on above: Order Comment: Name Collection Type:: Clean-Voided Midstream Performed By: #### T SH3, PP, ESR, CBC, CMP, CK, ADDONUAPLUS, CRP, T4F #### [address] #### HBCAB, RPR W RFX, HBSAG, HCV RX PCR, HBSAB, ALDOLASE #### [facility] , WBC,Urine None Seen Normal 0-4 [facility] Comment on above: Order Comment: Name Collection Type:: Clean-Voided Midstream Performed By: #### T SH3, PP, ESR, CBC, CMP, CK, ADDONUAPLUS, CRP, T4F #### [address] #### HBCAB, RPR W RFX, HBSAG, HCV RX PCR, HBSAB, ALDOLASE #### [facility] , Erythrocyte Sedimentation Ra elijah 03-17-2024 ESR (Bld) [Velocity] 32 mm/h High 0-19 [facility] Comment on above: Result Comment: PERF ORMED BY: [place] [id number] PATHOLOGIST FERRY TERMINAL AGENT JOSE ROGERS M.D. Performed By: #### T SH3, PP, ESR, CBC, CMP, CK, ADDONUAPLUS, CRP, T4F #### [address] #### HBCAB, RPR W RFX, HBSAG, HCV RX PCR, HBSAB, ALDOLASE #### [facility] , Erythrocyte distribution wid th [Ratio] by Automated countOrdered By: Pa San on 03-17-2024 Erythrocyte distribution width (RBC) [Ratio] 13.5 % Normal 12.0-14.8 [facility] Comment on above: Performed By: #### T SH3, PP, ESR, CBC, CMP, CK, ADDONUAPLUS, CRP, T4F #### [facility] [address] [place] [address] #### HBCAB, RPR W RFX, HBSAG, HCV RX PCR, HBSAB, ALDOLASE #### [facility] , Erythrocyte sedimentation ra te by Photometric methodOrdered By: Pa San on 03-17-2024 ESR Photometric method (Bld) [Velocity] 32 mm/hr High 0-19 [facility] Erythrocytes [#/area] in Uri ne sediment by Automated countOrdered By: Pa San on 03-17-2024 RBC Auto (Urine sed) [#/Area] 0-1 [HPF] 0-4 [facility] Erythrocytes [#/volume] in B lood by Automated countOrdered By: Pa San on 03-17-2024 RBC (Bld) [#/Vol] 4.88 10*6/uL Normal 3.90-5.60 [facility] Comment on above: Performed By: #### T SH3, PP, ESR, CBC, CMP, CK, ADDONUAPLUS, CRP, T4F #### [facility] [address] [place] [address] #### HBCAB, RPR W RFX, HBSAG, HCV RX PCR, HBSAB, ALDOLASE #### [facility] , Glucose [Mass/volume] in Ser um or PlasmaOrdered By: Pa San on 03-17-2024 Glucose [Mass/Vol] 88 mg/dL Normal 70-100 [facility] Comment on above: ADA recommended refe rence rangeRandom Glucose Reference Range is dependent on time and content of last meal. Glucose of more than 200 mg/dL in a nonstressed, ambulatory subject supports the diagnosis of Diabetes Mellitus. Result Comment: [place] om Glucose Reference Range is dependent on time and content of last meal. Glucose of more than 200 mg/dL in a nonstressed, ambulatory subject supports the diagnosis of Diabetes Mellitus. ADA recommended reference range Performed By: #### T SH3, PP, ESR, CBC, CMP, CK, ADDONUAPLUS, CRP, T4F #### [facility] [address] [place] [address] #### HBCAB, RPR W RFX, HBSAG, HCV RX PCR, HBSAB, ALDOLASE #### [facility] , Hematocrit [Volume Fraction] of Blood by Automated countOrdered By: Pa San on 03-17-2024 Hematocrit (Bld) [Volume fraction] 46.7 % Normal 38.8-50.0 [facility] Comment on above: Performed By: #### T SH3, PP, ESR, CBC, CMP, CK, ADDONUAPLUS, CRP, T4F #### [address] #### HBCAB, RPR W RFX, HBSAG, HCV RX PCR, HBSAB, ALDOLASE #### [facility] , Hemoglobin [Mass/volume] in BloodOrdered By: Pa San on 03-17-2024 Hemoglobin (Bld) [Mass/Vol] 16.0 g/dL Normal 13.0-17.0 [facility] Comment on above: Performed By: #### T SH3, PP, ESR, CBC, CMP, CK, ADDONUAPLUS, CRP, T4F #### [address] #### HBCAB, RPR W RFX, HBSAG, HCV RX PCR, HBSAB, ALDOLASE #### [facility] , Hep C Ab wRfx to Qnt PCRon 0 03-17-2024 Hepatitis C Virus Antibody Non-Reactive Normal Non Reactive [facility] Comment on above: Performed By: #### T SH3, PP, ESR, CBC, CMP, CK, ADDONUAPLUS, CRP, T4F #### [address] #### HBCAB, RPR W RFX, HBSAG, HCV RX PCR, HBSAB, ALDOLASE #### [facility] , Interpretation Hepatitis C Comment Normal . [facility] Comment on above: Result Comment: Not infected with HCV unless early or acute infection is suspected (which may be delayed in an immunocompromised individual), or other evidence exists to indicate HCV infection. Performed By: #### T SH3, PP, ESR, CBC, CMP, CK, ADDONUAPLUS, CRP, T4F #### [address] #### HBCAB, RPR W RFX, HBSAG, HCV RX PCR, HBSAB, ALDOLASE #### [facility] , Hepatitis B Core Antibodyon 03-17-2024 Hepatitis B Core Antibody Negative Normal Negative [facility] Comment on above: Result Comment: Perf ormed at: [address] [id number] Collar Packer: Mil Guzman PhD, Phone: [phone] Performed By: #### T SH3, PP, ESR, CBC, CMP, CK, ADDONUAPLUS, CRP, T4F #### [address] #### HBCAB, RPR W RFX, HBSAG, HCV RX PCR, HBSAB, ALDOLASE #### [facility] , Hepatitis B Surface Antibody on 03-17-2024 Hepatitis B Surface Antibody Non-Reactive Normal . [facility] Comment on above: Result Comment: Non Reactive: Inconsistent with immunity, less than 10 mIU/mL Reactive: Consistent with immunity, greater than 9.9 mIU/mL Performed By: #### T SH3, PP, ESR, CBC, CMP, CK, ADDONUAPLUS, CRP, T4F #### [address] #### HBCAB, RPR W RFX, HBSAG, HCV RX PCR, HBSAB, ALDOLASE #### [facility] , Hepatitis B Surface Antigeno n 03-17-2024 HBsAg Screen Negative Normal Negative [facility] Comment on above: Result Comment: PERF ORMED BY: [place] [address] PATHOLOGIST [employer]ENT JOSE ROGERS M.D. Performed By: #### T SH3, PP, ESR, CBC, CMP, CK, ADDONUAPLUS, CRP, T4F #### [place] [address] [place] #### HBCAB, RPR W RFX, HBSAG, HCV RX PCR, HBSAB, ALDOLASE #### [facility] , INR in Platelet poor plasma by Coagulation assayOrdered By: Pa San on 03-17-2024 INR Coag (PPP) [Relative time] 1.0 {INR} Normal [facility] Comment on above: INR Therapeutic Rang [...] CBC, CMP, CK, ADDONUAPLUS, CRP, T4F #### [place] [address] [place] #### HBCAB, RPR W RFX, HBSAG, HCV RX PCR, HBSAB, ALDOLASE #### [facility] , Ketones Auto test strip (U) [Mass/Vol]Ordered By: Pa San on 03-17-2024 Ketones (U) [Mass/Vol] Negative Negative [facility] - UrinalysisOrder ed By: Pa San on 03-17-2024 Hyaline casts LM Ql (Urine sed) None seen [LPF] 0-8 [facility] Leukocytes [#/area] in Urine sediment by Automated countOrdered By: Pa San on 03-17-2024 WBC Auto (Urine sed) [#/Area] None seen [HPF] 0-4 [facility] Leukocytes [#/volume] correc ameya for nucleated erythrocytes in Blood by Automated counOrdered By: Pa San on 03-17-2024 WBC corrected for nucl RBC Auto (Bld) [#/Vol] 6.5 10*3/uL 4.1-10.5 [facility] Leukocytes [#/volume] in Blo od by Automated countOrdered By: Pa San on 03-17-2024 WBC (Bld) [#/Vol] 6.5 10*3/uL Normal 4.1-10.5 [facility] Comment on above: Performed By: #### T SH3, PP, ESR, CBC, CMP, CK, ADDONUAPLUS, CRP, T4F #### [facility] [address] [place] [address] [place] #### HBCAB, RPR W RFX, HBSAG, HCV RX PCR, HBSAB, ALDOLASE #### [facility] , Lupus Anticoagulant Compon 0 03-17-2024 Dilute Prothrombin Time (dPt) 35.0 Normal 0.0-47.6 [facility] Comment on above: Performed By: #### T SH3, PP, ESR, CBC, CMP, CK, ADDONUAPLUS, CRP, T4F #### [facility] [address] [place] [address] [place] #### HBCAB, RPR W RFX, HBSAG, HCV RX PCR, HBSAB, ALDOLASE #### [facility] , dPT Confirm Ratio 1.04 Normal 0.00-1.34 [facility] Comment on above: Performed By: #### T SH3, PP, ESR, CBC, CMP, CK, ADDONUAPLUS, CRP, T4F #### [facility] [address] [place] [address] [place] #### HBCAB, RPR W RFX, HBSAG, HCV RX PCR, HBSAB, ALDOLASE #### [facility] , DRVVT Lupus 31.6 Normal 0.0-47.0 [facility] Comment on above: Performed By: #### T SH3, PP, ESR, CBC, CMP, CK, ADDONUAPLUS, CRP, T4F #### [address] #### HBCAB, RPR W RFX, HBSAG, HCV RX PCR, HBSAB, ALDOLASE #### [facility] , Interpretation Comment: Normal . [facility] Comment on above: Result Comment: No l upus anticoagulant was detected. Performed at: - [address] [id number] Collar Packer: Elvira Barajas MD, Phone: [phone] PERFORMED BY: [place] [address] PATHOLOGIST [employer] JOSE ROGERS M.D. Performed By: #### T SH3, PP, ESR, CBC, CMP, CK, ADDONUAPLUS, CRP, T4F #### [address] #### HBCAB, RPR W RFX, HBSAG, HCV RX PCR, HBSAB, ALDOLASE #### [facility] , PTT-LA 37.6 Normal 0.0-43.5 [facility] Comment on above: Performed By: #### T SH3, PP, ESR, CBC, CMP, CK, ADDONUAPLUS, CRP, T4F #### [place] [address] [place] #### HBCAB, RPR W RFX, HBSAG, HCV RX PCR, HBSAB, ALDOLASE #### [facility] , Thrombin Time 17.0 Normal 0.0-23.0 [facility] Comment on above: Performed By: #### T SH3, PP, ESR, CBC, CMP, CK, ADDONUAPLUS, CRP, T4F #### [place] [address] [place] #### HBCAB, RPR W RFX, HBSAG, HCV RX PCR, HBSAB, ALDOLASE #### [facility] , Lymphocytes [#/volume] in Bl ood by Automated countOrdered By: Pa Blackmanrow on 03-17-2024 Lymphocytes (Bld) [#/Vol] 1.6 10*3/uL Normal 1.00-4.8 [facility] Comment on above: Performed By: #### T SH3, PP, ESR, CBC, CMP, CK, ADDONUAPLUS, CRP, T4F #### [facility] [address] [place] [address] #### HBCAB, RPR W RFX, HBSAG, HCV RX PCR, HBSAB, ALDOLASE #### [facility] , Lymphocytes/100 leukocytes i n Blood by Automated countOrdered By: Pa San on 03-17-2024 Lymphocytes/100 WBC (Bld) 24.5 % Normal . [facility] Comment on above: Performed By: #### T SH3, PP, ESR, CBC, CMP, CK, ADDONUAPLUS, CRP, T4F #### [facility] [address] [place] [address] #### HBCAB, RPR W RFX, HBSAG, HCV RX PCR, HBSAB, ALDOLASE #### [facility] , MCH [Entitic mass] by Automa ameya countOrdered By: Pa San on 03-17-2024 MCH (RBC) [Entitic mass] 32.7 pg Normal 27.5-35.2 [facility] Comment on above: Performed By: #### T SH3, PP, ESR, CBC, CMP, CK, ADDONUAPLUS, CRP, T4F #### [facility] [address] [place] [address] [place] #### HBCAB, RPR W RFX, HBSAG, HCV RX PCR, HBSAB, ALDOLASE #### [facility] , MCHC Auto (RBC) [Mass/Vol]Or dered By: Pa San on 03-17-2024 MCHC (RBC) [Mass/Vol] 34.2 g/dL 32.5-35.6 [facility] MCV [Entitic volume] by Auto mated countOrdered By: Pa San on 03-17-2024 MCV (RBC) [Entitic vol] 95.7 fL Normal 83.5-101 [facility] Comment on above: Performed By: #### T SH3, PP, ESR, CBC, CMP, CK, ADDONUAPLUS, CRP, T4F #### [facility] [address] [place] [address] [place] #### HBCAB, RPR W RFX, HBSAG, HCV RX PCR, HBSAB, ALDOLASE #### [facility] , Neutrophils [#/volume] in Bl ood by Automated countOrdered By: Pa San on 03-17-2024 Neutrophils (Bld) [#/Vol] 4.1 10*3/uL Normal 1.8-7.7 [facility] Comment on above: Performed By: #### T SH3, PP, ESR, CBC, CMP, CK, ADDONUAPLUS, CRP, T4F #### [facility] [address] [place] [address] [place] #### HBCAB, RPR W RFX, HBSAG, HCV RX PCR, HBSAB, ALDOLASE #### [facility] , Nitrite Test strip Ql (U)Ord ered By: Pa San on 03-17-2024 Nitrite Ql (U) Negative Negative [facility] No Panel InformationOrdered By: Pa San on 03-17-2024 Estimated GFR (CKD-EPI) > 60.0 mL/Min [facility] Creatinine Clearance (Chem N/A [facility] Nucleated erythrocytes [Pres ence] in Blood by Automated countOrdered By: Pa San on 03-17-2024 Nucleated RBC Auto Ql (Bld) 0.2 /100{WBC} 0-0.5 [facility] Platelet mean volume [Entiti c volume] in Blood by Automated countOrdered By: Pa San on 03-17-2024 Platelet mean volume (Bld) [Entitic vol] 8.9 fL Normal 6.6-10.1 [facility] Comment on above: Performed By: #### T SH3, PP, ESR, CBC, CMP, CK, ADDONUAPLUS, CRP, T4F #### [facility] [address] [place] [address] #### HBCAB, RPR W RFX, HBSAG, HCV RX PCR, HBSAB, ALDOLASE #### [facility] , Platelets [#/volume] in Bloo d by Automated countOrdered By: Pa San on 03-17-2024 Platelets (Bld) [#/Vol] 258 10*3/uL Normal 150-450 [facility] Comment on above: Performed By: #### T SH3, PP, ESR, CBC, CMP, CK, ADDONUAPLUS, CRP, T4F #### [facility] [address] [place] [address] #### HBCAB, RPR W RFX, HBSAG, HCV RX PCR, HBSAB, ALDOLASE #### [facility] , Potassium [Moles/volume] in Serum or PlasmaOrdered By: Pa San on 03-17-2024 Potassium [Moles/Vol] 4.8 mmol/L Normal 3.5-5.1 [facility] Comment on above: Performed By: #### T SH3, PP, ESR, CBC, CMP, CK, ADDONUAPLUS, CRP, T4F #### [facility] [address] [place] [address] [place] #### HBCAB, RPR W RFX, HBSAG, HCV RX PCR, HBSAB, ALDOLASE #### [facility] , Protein Auto test strip (U) [Mass/Vol]Ordered By: Pa San on 03-17-2024 Protein (U) [Mass/Vol] Negative Negative [facility] Protein [Mass/volume] in Ser um or PlasmaOrdered By: Pa San on 03-17-2024 Protein [Mass/Vol] 7.6 g/dL Normal 6.4-8.9 [facility] Comment on above: Performed By: #### T SH3, PP, ESR, CBC, CMP, CK, ADDONUAPLUS, CRP, T4F #### [address] #### HBCAB, RPR W RFX, HBSAG, HCV RX PCR, HBSAB, ALDOLASE #### [facility] , Prothrombin time (PT)Ordered By: Pa San on 03-17-2024 PT Coag (PPP) [Time] 11.3 s Normal 9.0-12.9 [facility] Comment on above: A hematocrit value g reater than 55% may lead to inaccurate results in coagulation testing. Patients having hematocrit values >55% require a special collection tube for coagulation studies. Please contact the laboratory at [phone] for redraw instructions. Result Comment: A he matocrit value greater than 55% may lead to inaccurate results in coagulation testing. Patients having hematocrit values >55% require a special collection tube for coagulation studies. Please contact the laboratory at [phone] for redraw instructions. Performed By: #### T SH3, PP, ESR, CBC, CMP, CK, ADDONUAPLUS, CRP, T4F #### [address] #### HBCAB, RPR W RFX, HBSAG, HCV RX PCR, HBSAB, ALDOLASE #### [facility] , RPR w/rfx to Quant TP Abson 03-17-2024 RPR, Rfx Quant RPR Non-Reactive Normal Non Reactive [facility] Comment on above: Result Comment: Perf ormed at: - [facility] [address] [id number] Collar Packer: Mil Guzman PhD, Phone: [phone] PERFORMED BY: [place] [address] PATHOLOGIST [employer]ENT JOSE ROGERS M.D. Performed By: #### T SH3, PP, ESR, CBC, CMP, CK, ADDONUAPLUS, CRP, T4F #### [place] [address] [place] #### HBCAB, RPR W RFX, HBSAG, HCV RX PCR, HBSAB, ALDOLASE #### [facility] , Serum globulin measurement b y calculation (mass/volume)Ordered By: Pa Blackmanrow on 03-17-2024 Globulin (S) [Mass/Vol] 3.0 g/dL [facility] Comment on above: Performed By: #### T SH3, PP, ESR, CBC, CMP, CK, ADDONUAPLUS, CRP, T4F #### [facility] [address] [place] [address] #### HBCAB, RPR W RFX, HBSAG, HCV RX PCR, HBSAB, ALDOLASE #### [facility] , Serum or plasma albumin/glob ulin mass ratioOrdered By: Pa San on 03-17-2024 Albumin/Globulin [Mass ratio] 1.5 {ratio} [facility] Comment on above: Performed By: #### T SH3, PP, ESR, CBC, CMP, CK, ADDONUAPLUS, CRP, T4F #### [facility] [address] [place] [address] #### HBCAB, RPR W RFX, HBSAG, HCV RX PCR, HBSAB, ALDOLASE #### [facility] , Serum or plasma anion gap de terminationOrdered By: Padewayne San on 03-17-2024 Anion gap [Moles/Vol] 12.8 mmol/L Normal 6.0-15.0 [facility] Comment on above: Performed By: #### T SH3, PP, ESR, CBC, CMP, CK, ADDONUAPLUS, CRP, T4F #### [facility] [address] [place] [address] [place] #### HBCAB, RPR W RFX, HBSAG, HCV RX PCR, HBSAB, ALDOLASE #### [facility] , Sodium [Moles/volume] in Ser um or PlasmaOrdered By: Pa San on 03-17-2024 Sodium [Moles/Vol] 140 mmol/L Normal 136-145 [facility] Comment on above: Performed By: #### T SH3, PP, ESR, CBC, CMP, CK, ADDONUAPLUS, CRP, T4F #### [facility] [address] [place] [address] #### HBCAB, RPR W RFX, HBSAG, HCV RX PCR, HBSAB, ALDOLASE #### [facility] , Specific gravity Auto test s trip (U) [Rel density]Ordered By: Pa San on 03-17-2024 Specific gravity (U) [Rel density] 1.014 1.001-1.030 [facility] Thyroid Peroxidase Antibodie son 03-17-2024 Thyroid Peroxidase Antibodies <9 Normal 0-34 [facility] Comment on above: Result Comment: Perf ormed at: [facility] [address] [id number] Collar Packer: Mil Guzman PhD, Phone: [phone] Performed By: #### T SH3, PP, ESR, CBC, CMP, CK, ADDONUAPLUS, CRP, T4F #### [facility] [address] [place] [address] #### HBCAB, RPR W RFX, HBSAG, HCV RX PCR, HBSAB, ALDOLASE #### [facility] , Thyrotropin [Units/volume] i n Serum or PlasmaOrdered By: Pa Blackmanrow on 03-17-2024 TSH Qn 3.54 m[IU]/L Normal 0.45-5.33 [facility] Comment on above: Result Comment: PERF ORMED BY: [place] [address] PATHOLOGIST [employer] JOSE ROGERS M.D. Performed By: #### T SH3, PP, ESR, CBC, CMP, CK, ADDONUAPLUS, CRP, T4F #### [facility] [address] [place] [address] #### HBCAB, RPR W RFX, HBSAG, HCV RX PCR, HBSAB, ALDOLASE #### [facility] , Thyroxine (T4) free [Mass/vo lume] in Serum or PlasmaOrdered By: Pa San on 03-17-2024 Free T4 [Mass/Vol] 0.78 ng/dL Normal 0.61-1.12 [facility] Comment on above: Performed By: #### T SH3, PP, ESR, CBC, CMP, CK, ADDONUAPLUS, CRP, T4F #### [facility] [address] [place] [address] #### HBCAB, RPR W RFX, HBSAG, HCV RX PCR, HBSAB, ALDOLASE #### [facility] , Urea nitrogen [Mass/volume] in Serum or PlasmaOrdered By: Pa San on 03-17-2024 Urea nitrogen [Mass/Vol] 11 mg/dL Normal 7-25 [facility] Comment on above: Performed By: #### T SH3, PP, ESR, CBC, CMP, CK, ADDONUAPLUS, CRP, T4F #### [facility] [address] [place] [address] [place] #### HBCAB, RPR W RFX, HBSAG, HCV RX PCR, HBSAB, ALDOLASE #### [facility] , Urine clarity by refractomet ry automatedOrdered By: Pa San on 03-17-2024 Clarity Refractometry automated (U) Clear Clear [facility] Urine glucose measurement by automated test strip (mass/volume)Ordered By: aP San on 03-17-2024 Glucose Auto test strip (U) [Mass/Vol] Normal mg/dL Normal [facility] Urine hemoglobin detection b y automated test stripOrdered By: Pa San on 03-17-2024 Hemoglobin Auto test strip Ql (U) Negative Negative [facility] Urine leukocyte esterase det ection by automated test stripOrdered By: Pa San on 03-17-2024 Leukocyte esterase Auto test strip Ql (U) Negative Negative [facility] Urine pH measurement by auto mated test stripOrdered By: Pa San on 03-17-2024 pH (U) 5.5 [pH] Normal 5.0-9.0 [facility] Comment on above: Order Comment: Name Collection Type:: Clean-Voided Midstream Performed By: #### T SH3, PP, ESR, CBC, CMP, CK, ADDONUAPLUS, CRP, T4F #### [facility] [address] #### HBCAB, RPR W RFX, HBSAG, HCV RX PCR, HBSAB, ALDOLASE #### [facility] , Urobilinogen Auto test strip (U) [Mass/Vol]Ordered By: Pa San on 03-17-2024 Urobilinogen (U) [Mass/Vol] Normal mg/dL Normal [facility] Lipid 1996 panelon Cholesterol [Mass/Vol] 179 mg/dL Normal 150-200 [facility] Comment on above: Performed By: #### C BCA, 70880-1, 02040-1, CMP, 3084-1, HA1C, 60408-3, 08176-8, 5130-0, 80157-1, 46811-4, 39401-5 #### [facility] ([id number]) [address] [place] [address] Cholesterol in HDL [Mass/Vol] 55 mg/dL Normal >39 [facility] Comment on above: Result Comment: HDL <40 mg/dL - High Risk HDL > or = 40mg/dL- Desirable HDL >60 mg/dL - Negative Risk Performed By: #### C BCA, 74659-5, 47377-2, CMP, 3084-1, HA1C, 18475-2, 81811-1, 5130-0, 42502-3, 52567-9, 53181-4 #### [facility] ([id number]) [address] [place] [address] Cholesterol in LDL [Mass/Vol] 107 mg/dL Normal <130 [facility] Comment on above: Result Comment: LDL <100 mg/dL - Desirable LDL >160 mg/dL - High Risk Performed By: #### C BCA, 73052-0, 58086-2, CMP, 3084-1, HA1C, 25621-9, 60004-4, 5130-0, 44812-5, 89606-8, 35245-5 #### [facility] ([id number]) [address] [place] [address] Cholesterol in VLDL [Mass/Vol] 17 mg/dL Normal 0-30 [facility] Comment on above: Performed By: #### C BCA, 31230-4, 51873-2, CMP, 3084-1, HA1C, 30685-3, 66037-4, 5130-0, 17220-1, 54107-7, 79620-9 #### [facility] ([id number]) [address] [place] [address] CHOLESTEROL:HDL 3.3 Normal 1.0-5.0 [facility] Comment on above: Performed By: #### C BCA, 91011-9, 11183-8, CMP, 3084-1, HA1C, 92177-3, 39260-0, 5130-0, 25650-3, 88849-1, 09531-5 #### [facility] ([id number]) [address], [address] [place] [address] Triglyceride [Mass/Vol] 87 mg/dL Normal 27-150 [facility] Comment on above: Performed By: #### C BCA, 15152-4, 11021-2, CMP, 3084-1, HA1C, 05060-5, 99980-4, 5130-0, 21617-1, 89758-6, 16239-1 #### [facility] ([id number]) [address], [address] [place] [address] Prostate specific Ag [Mass/V ol]on 02-01-2024 PSA SCREEN 0.57 ng/mL Normal 0.00-4.00 [facility] Comment on above: Result Comment: The method used for this test is Eliud Leta DXI chemiluminescent immunoassay. Values obtained by different assay methods cannot be used interchangeably. Performed By: #### C BCA, 58586-9, 21492-6, CMP, 3084-1, HA1C, 38341-6, 95160-9, 5130-0, 53910-3, 85872-6, #### [facility] ([id number]) [address], [address] [place] [address] CBC AND AUTO DIFFon 12-30-19 ABSOLUTE BASOPHIL 0.1 X10E9/L Normal 0.0-0.2 [facility] Comment on above: Performed By: #### C BCA, 72233-2, 24997-8, CMP, 3084-1, HA1C, 13331-3, 40830-7, 5130-0, 38519-8, 26805-7, #### [facility] ([id number]) [address], [address] [place] [address] ABSOLUTE NEUTROPHIL 3.7 X10E9/L Normal 1.5-6.6 [facility] Comment on above: Performed By: #### C BCA, 87590-6, 26007-9, CMP, 3084-1, HA1C, 11802-9, 12463-9, 5130-0, 43036-7, 94039-1, #### [facility] ([id number]) [address], [address] [place] [address] Basophils/100 WBC (Bld) 1.0 % Normal [facility] Comment on above: Performed By: #### C BCA, 63006-0, 08833-6, CMP, 3084-1, HA1C, 92375-5, 91390-1, 5130-0, 86519-7, 02052-0, 21595-5 #### [facility] ([id number]) [address], [address] [place] [address] Eosinophils (Bld) [#/Vol] 0.1 10*3/uL Normal 0.0-0.4 [facility] Comment on above: Performed By: #### C BCA, 50827-3, 45674-5, CMP, 3084-1, HA1C, 26285-6, 99335-9, 5130-0, 72419-7, 19408-8, #### [facility] ([id number]) [address], [address] [place] [address] Eosinophils/100 WBC (Bld) 2.3 % Normal [facility] Comment on above: Performed By: #### C BCA, 20601-7, 26509-1, CMP, 3084-1, HA1C, 24482-8, 76442-1, 5130-0, 46686-9, 68135-4, 95368-6 #### [facility] ([id number]) [address], [address] [place] [address] Erythrocyte distribution width (RBC) [Ratio] 14.1 % Normal 11.5-15.0 [facility] Comment on above: Performed By: #### C BCA, 15601-2, 66708-1, CMP, 3084-1, HA1C, 09057-3, 97408-9, 5130-0, 45164-9, 68191-9, 78019-0 #### [facility] ([id number]) [address], [address] [place] [address] Hematocrit (Bld) [Volume fraction] 46.5 % Normal 39-49 [facility] Comment on above: Performed By: #### C BCA, 76122-3, 51699-1, CMP, 3084-1, HA1C, 40793-6, 74677-3, 5130-0, 58987-5, 13299-7, 84620-9 #### [facility] ([id number]) [address], [address] [place] [address] Hemoglobin (Bld) [Mass/Vol] 15.8 g/dL Normal 13.0-17.0 [facility] Comment on above: Performed By: #### C BCA, 38881-2, 06335-7, CMP, 3084-1, HA1C, 34501-7, 35884-8, 5130-0, 82818-7, 62348-4, 59703-6 #### [facility] ([id number]) [address], [address] [place] [address] Lymphocytes (Bld) [#/Vol] 1.5 10*3/uL Normal 1.0-3.5 [facility] Comment on above: Performed By: #### C BCA, 87746-4, 35523-1, CMP, 3084-1, HA1C, 82346-8, 75209-3, 5130-0, 64773-8, 09475-2, 66649-6 #### [facility] ([id number]) [address], [address] [place] [address] Lymphocytes/100 WBC (Bld) 25.1 % Normal [facility] Comment on above: Performed By: #### C BCA, 95650-8, 71703-4, CMP, 3084-1, HA1C, 58466-0, 38036-8, 5130-0, 49179-2, 27218-3, 73622-9 #### [facility] ([id number]) [address], [address] [place] [address] MCH (RBC) [Entitic mass] 32.2 pg Normal 27-34 [facility] Comment on above: Performed By: #### C BCA, 09953-5, 66401-6, CMP, 3084-1, HA1C, 86677-1, 02959-2, 5130-0, 47425-6, 10744-9, 79922-1 #### [facility] ([id number]) [address], [address] [place] [address] MCHC (RBC) [Mass/Vol] 33.9 g/dL Normal 32-36 [facility] Comment on above: Performed By: #### C BCA, 45215-5, 65108-6, CMP, 3084-1, HA1C, 97235-3, 40007-8, 5130-0, 18938-2, 53076-5, 56167-2 #### [facility] ([id number]) [address], [address] [place] [address] MCV (RBC) [Entitic vol] 95 fL Normal 80-100 [facility] Comment on above: Performed By: #### C BCA, 32850-1, 77080-2, CMP, 3084-1, HA1C, 26654-6, 52007-3, 5130-0, 54641-1, 97186-5, 08604-4 #### [facility] ([id number]) [address], [address] [place] [address] Monocytes (Bld) [#/Vol] 0.4 10*3/uL Normal 0-0.9 [facility] Comment on above: Performed By: #### C BCA, 13915-7, 19811-7, CMP, 3084-1, HA1C, 28121-5, 32665-2, 5130-0, 10616-3, 01963-0, 65555-4 #### [facility] ([id number]) [address] [facility] [facility] [place] [address] Monocytes/100 WBC (Bld) 7.6 % Normal [facility] Comment on above: Performed By: #### C BCA, 95866-8, 52605-8, CMP, 3084-1, HA1C, 53447-5, 31430-3, 5130-0, 47318-1, 54522-6, 44765-3 #### [facility] ([id number]) [address] [facility] [place] [address] Neutrophils/100 WBC (Bld) 64.0 % Normal [facility] Comment on above: Performed By: #### C BCA, 94217-3, 87135-3, CMP, 3084-1, HA1C, 23178-1, 34935-9, 5130-0, 07857-9, 25247-3, 46872-1 #### [facility] ([id number]) [address] [facility] [place] [address] Platelet mean volume (Bld) [Entitic vol] 8.8 fL Normal 7-12 [facility] Comment on above: Performed By: #### C BCA, 13502-5, 80312-2, CMP, 3084-1, HA1C, 31218-7, 37618-9, 5130-0, 36419-8, 91954-3, 10671-5 #### [facility] ([id number]) [address] [facility], [address] [place] [address] Platelets (Bld) [#/Vol] 265 10*3/uL Normal 150-450 [facility] Comment on above: Performed By: #### C BCA, 61209-2, 84534-0, CMP, 3084-1, HA1C, 95134-6, 49356-1, 5130-0, 77888-2, 29551-6, 03664-7 #### [facility] ([id number]) [address] [facility] [facility] [place] [address] RBC COUNT 4.90 X10E12/L Normal 4.10-5.70 [facility] Comment on above: Performed By: #### C BCA, 08178-5, 20716-7, CMP, 3084-1, HA1C, 51399-0, 84023-8, 5130-0, 91835-4, 68751-1, 10439-2 #### [facility] ([id number]) [address], [address] [place] [address] WBC (Bld) [#/Vol] 5.8 10*3/uL Normal 4.0-11.0 [facility] Comment on above: Performed By: #### C BCA, 72306-1, 06594-4, CMP, 3084-1, HA1C, 78289-8, 72130-2, 5130-0, 71871-1, 01699-9, 58939-1 #### [facility] ([id number]) [address] [facility] [place] [address] CBC auto differentialon 05-2 Basophils (Bld) [#/Vol] 0.1 10*3/uL [facility] Basophils/100 WBC (Bld) 1.0 % [facility] Eosinophils (Bld) [#/Vol] 0.1 10*3/uL [facility] Eosinophils/100 WBC (Bld) 2.3 % [facility] Erythrocyte distribution width (RBC) [Ratio] 14.1 % 11.5 - 15.0 % [facility] Hematocrit (Bld) [Volume fraction] 46.5 % 39 - 49 % [facility] Hemoglobin (Bld) [Mass/Vol] 15.8 g/dL 13.0 - 17.0 g/dL [facility] Lymphocytes (Bld) [#/Vol] 1.5 10*3/uL [facility] Lymphocytes/100 WBC (Bld) 25.1 % [facility] MCH (RBC) [Entitic mass] 32.2 pg 27 - 34 pg [facility] MCHC (RBC) [Mass/Vol] 33.9 g/dL 32 - 3 6 g/dL [facility] MCV (RBC) [Entitic vol] 95 fL 80 - 100 fL [facility] Monocytes (Bld) [#/Vol] 0.4 10*3/uL [facility] Monocytes/100 WBC (Bld) 7.6 % [facility] Neutrophils (Bld) [#/Vol] 3.7 10*3/uL [facility] Neutrophils/100 WBC (Bld) 64.0 % [facility] Platelet mean volume (Bld) [Entitic vol] 8.8 fL 7 - 12 fL [facility] Platelets (Bld) [#/Vol] 265 10*3/uL [facility] RBC (Bld) [#/Vol] 4.90 10*6/uL [facility] WBC corrected for nucl RBC Auto (Bld) [#/Vol] 5.8 [facility] COMPREHENSIVE METABOLIC PANE Solomon 12-30-2023 Albumin [Mass/Vol] 4.3 g/dL Normal 3.2-5.3 [facility] Comment on above: Performed By: #### C BCA, 10310-7, 47063-2, CMP, 3084-1, HA1C, 55814-5, 62197-0, 5130-0, 19813-5, 53464-3, 35246-4 #### [facility] ([id number]) [address] [facility] [place] [address] ALP [Catalytic activity/Vol] 73 U/L Normal 39-130 [facility] Comment on above: Performed By: #### C BCA, 90086-8, 67043-8, CMP, 3084-1, HA1C, 03828-3, 53557-9, 5130-0, 38131-5, 87635-4, 83584-8 #### [facility] ([id number]) [address] [facility] [place] [address] ALT [Catalytic activity/Vol] 49 U/L High 0-40 [facility] Comment on above: Performed By: #### C BCA, 32278-9, 93075-2, CMP, 3084-1, HA1C, 17897-3, 14826-9, 5130-0, 49423-4, 40412-7, 70869-8 #### [facility] ([id number]) [address], [address] [place] [address] Anion gap [Moles/Vol] 11 mmol/L Normal 5-15 [facility] Comment on above: Performed By: #### C BCA, 67289-3, 85822-9, CMP, 3084-1, HA1C, 53338-7, 83681-7, 5130-0, 65474-0, 61360-9, 30904-5 #### [facility] ([id number]) [address], [address] [place] [address] AST [Catalytic activity/Vol] 38 U/L Normal 0-41 [facility] Comment on above: Performed By: #### C BCA, 97333-3, 80467-0, CMP, 3084-1, HA1C, 97258-3, 64397-0, 5130-0, 75353-5, 65385-6, 28717-4 #### [facility] ([id number]) [address], [address] [place] [address] Bilirubin [Mass/Vol] 0.7 mg/dL Normal 0.3-1.2 [facility] Comment on above: Performed By: #### C BCA, 55904-9, 18086-5, CMP, 3084-1, HA1C, 74258-4, 60462-3, 5130-0, 96744-3, 58708-1, 93519-4 #### [facility] ([id number]) [address], [address] [place] [address] Calcium [Mass/Vol] 9.2 mg/dL Normal 8.5-10.5 [facility] Comment on above: Performed By: #### C BCA, 87681-8, 47648-5, CMP, 3084-1, HA1C, 53744-4, 11276-9, 5130-0, 40666-1, 41865-5, 92150-1 #### [facility] ([id number]) [address], [address] [place] [address] Chloride [Moles/Vol] 102 mmol/L Normal 98-109 [facility] Comment on above: Performed By: #### C BCA, 65562-1, 52728-0, CMP, 3084-1, HA1C, 93782-5, 15160-6, 5130-0, 82230-4, 54197-6, 77776-1 #### [facility] ([id number]) [address] [facility] [place] [address] CO2 [Moles/Vol] 26 mmol/L Normal 22-32 [facility] Comment on above: Performed By: #### C BCA, 02081-6, 02491-2, CMP, 3084-1, HA1C, 87558-2, 24381-7, 5130-0, 11400-1, 61793-7, 27944-2 #### [facility] ([id number]) [address] [facility] [place] [address] Creatinine [Mass/Vol] 0.91 mg/dL Normal 0.60-1.30 [facility] Comment on above: Result Comment: METH OD TRACEABLE TO IDMS STANDARD Performed By: #### C BCA, 25051-0, 75734-9, CMP, 3084-1, HA1C, 76454-9, 47477-8, 5130-0, 94058-4, 90694-5, 91473-3 #### [facility] ([id number]) [address], [address] [place] [address] eGFR (CKD-EPI) NON-RACE DEPENDENT >90 Normal >59 [facility] Comment on above: Result Comment: Reported eGFR is based on the CKD-EPI 2020 equation that does not use a race coefficient. Performed By: #### C BCA, 94906-7, 82408-5, CMP, 3084-1, HA1C, 87315-0, 96331-1, 5130-0, 40039-0, 05476-0, 48251-4 #### [facility] ([id number]) [address], [address] [place] [address] Glucose [Mass/Vol] 93 mg/dL Normal 65-99 [facility] Comment on above: Performed By: #### C BCA, 93309-6, 10992-0, CMP, 3084-1, HA1C, 67913-8, 41346-5, 5130-0, 93513-2, 08265-6, 46221-7 #### [facility] ([id number]) [address] [facility] [place] [address] Potassium [Moles/Vol] 4.0 mmol/L Normal 3.5-5.0 [facility] Comment on above: Performed By: #### C BCA, 85344-0, 27257-5, CMP, 3084-1, HA1C, 04336-1, 20477-0, 5130-0, 55143-8, 95850-8, 69290-0 #### [facility] ([id number]) [address] [facility] [place] [address] Protein [Mass/Vol] 7.8 g/dL Normal 6.0-8.0 [facility] Comment on above: Performed By: #### C BCA, 03533-8, 29882-0, CMP, 3084-1, HA1C, 18298-2, 25254-1, 5130-0, 56543-7, 92779-7, 90239-1 #### [facility] ([id number]) [address], [address] [place] [address] Sodium [Moles/Vol] 139 mmol/L Normal 134-146 [facility] Comment on above: Performed By: #### C BCA, 15683-7, 68885-6, CMP, 3084-1, HA1C, 62310-4, 41905-8, 5130-0, 13595-5, 93727-5, 85780-1 #### [facility] ([id number]) [address] [place] [address], [address] [place] [address] Urea nitrogen [Mass/Vol] 11 mg/dL Normal 5-23 [facility] Comment on above: Performed By: #### C BCA, 68335-2, 75727-3, CMP, 3084-1, HA1C, 51261-5, 13101-7, 5130-0, 80722-9, 57356-7, 03787-7 #### [facility] ([id number]) [address] [place] [address], [address] [place] [address] Chromatin Ab Qlon 12-30-2023 CHROMATIN AB IGG <0.2 Normal <1.0 [facility] Comment on above: Performed By: #### C BCA, 12993-8, 76338-1, CMP, 3084-1, HA1C, 85467-7, 35587-4, 5130-0, 98803-9, 36594-1, 12828-5 #### [facility] ([id number]) [address] [place] [address], [address] [place] [address] Comprehensive metabolic pane solomon 12-30-2023 Albumin [Mass/Vol] 4.3 g/dL 3.2 - 5.3 g/dL [facility] ALP [Catalytic activity/Vol] 73 U/L 39 - 130 U/L [facility] ALT No additional P-5'-P [Catalytic activity/Vol] 49 U/L High 0 - 40 U/L [facility] Anion gap [Moles/Vol] 11 mmol/L 5 - 15 mmol/L [facility] AST [Catalytic activity/Vol] 38 U/L 0 - 41 U/L [facility] Bilirubin [Mass/Vol] 0.7 mg/dL 0.3 - 1 .2 mg/dL [facility] Calcium [Mass/Vol] 9.2 mg/dL 8.5 - 10. 5 mg/dL [facility] Chloride [Moles/Vol] 102 mmol/L 98 - 10 9 mmol/L [facility] CO2 [Moles/Vol] 26 mmol/L 22 - 32 mmol/L [facility] Creatinine [Mass/Vol] 0.91 mg/dL 0.60 - 1.30 mg/dL [facility] Comment on above: METHOD TRACEABLE TO [facility] STANDARD eGFR (CKD-EPI)non-race dependent - PINF [facility] Comment on above: Reported eGFR is based on the CKD-EPI 2020 equation that does not use a race coefficient. Glucose [Mass/Vol] 93 mg/dL 65 - 99 mg/dL [facility] Interpretation and review of laboratory results Abnormal [facility] Potassium [Moles/Vol] 4.0 mmol/L 3.5 - 5.0 mmol/L [facility] Protein [Mass/Vol] 7.8 g/dL 6.0 - 8.0 g/dL [facility] Sodium [Moles/Vol] 139 mmol/L 134 - 146 mmol/L [facility] Urea nitrogen [Mass/Vol] 11 mg/dL 5 - 23 mg/dL [facility] DNA double strand Ab Qn (S)o n 12-30-2023 DOUBLE STRANDED DNA 1 IU/ML Normal <5 [facility] Comment on above: Result Comment: Interpretation-------- <5 Negative 5-9 Indeterminate >9 Positive Performed By: #### C BCA, 87721-4, 36659-9, CMP, 3084-1, HA1C, 88513-9, 23034-1, 5130-0, 97905-3, 59623-5, 32193-4 #### [facility] ([id number]) [address] [facility], [address] [place] [address] ESR Photometric method (Bld) [Velocity]on 12-30-2023 Interpretation and review of laboratory results Abnormal [facility] ESR, ERYTHROCYTE SEDIMENTATION RATE 32 mm/h High 0-20 [facility] Comment on above: Performed By: #### C BCA, 95500-3, 89388-7, CMP, 3084-1, HA1C, 62747-6, 87077-2, 5130-0, 90967-9, 52086-1, 18896-2 #### [facility] ([id number]) [address], [address] [place] [address] Erythrocyte Sedimentation Ra te (ESR)on 12-30-2023 ESR Photometric method (Bld) [Velocity] 32 mm/h High 0 - 20 mm/h [facility] HGB A1C (GLYCO-HGB)on 2023 Glucose [Mass/Vol] 114 mg/dL Normal [facility] Comment on above: Performed By: #### C GARRY, 89614-4, 32761-1, CMP, 3084-1, HA1C, 87096-5, 66730-1, 5130-0, 56300-2, 95173-9, 40447-5 #### [facility] ([id number]) [address], [address] [place] [address] HbA1c (Bld) [Mass fraction] 5.6 % Normal 4.4-5.6 [facility] Comment on above: Result Comment: NOTE ADA Guidelines Result HgbA1c Normal : less than 5.7 % Prediabetes : 5.7 % to 6.4 % Diabetes : > 6.4 % Use with caution in patients with abnormal hemoglobin variants as the half-life of red blood cells and in vivo glycation rates are affected. Performed By: #### C BCA, 94556-7, 92206-3, CMP, 3084-1, HA1C, 87532-7, 52962-4, 5130-0, 85684-8, 89731-0, 66632-5 #### [facility] ([id number]) [address], [address] [place] [address] No Panel Informationon 12-29 [facility] Nuclear Ab IA Ql (S)on 12-29 CATHY Screen w/reflex Positive Abnormal NEG [facility] Comment on above: Result Comment: Testing performed using multiplex flow immunoassay. Eleven different antigens associated with systemic autoimmune diseases (dsDNA,Sm,Sm/E MAIL SYSTEM ADMINISTRATOR,E MAIL SYSTEM ADMINISTRATOR,Chromatin, SSA,SSB,Claritza-1,Scl70,Ribo P,Centromere B) are included in this screening test. Performed By: #### C BCA, 04000-3, 73603-5, CMP, 3084-1, HA1C, 90933-8, 77792-5, 5130-0, 63144-6, 98856-5, 34437-4 #### [facility] ([id number]) [address], [address] [place] [address] Rheumatoid factoron 12-30-19 Rheumatoid factor Nephelometry Qn (S) NINF [facility] Rheumatoid factor Nephelomet ry Qn (S)on 12-30-2023 [facility] RHEUMATOID FACTOR <10 Normal <20 [facility] Comment on above: Performed By: #### C BCA, 15817-9, 81196-0, CMP, 3084-1, HA1C, 92122-2, 19783-1, 5130-0, 20687-5, 91083-3, 83021-9 #### [facility] ([id number]) [address], [address] [place] [address] Ribonucleoprotein extractabl e nuclear IgG Qn (S)on 12-30-2023 E MAIL SYSTEM ADMINISTRATOR ANTIBODY IGG 1.8 AI High <1.0 [facility] Comment on above: Performed By: #### C BCA, 15503-6, 36015-3, CMP, 3084-1, HA1C, 17120-5, 75343-2, 5130-0, 55084-6, 69416-9, 10665-0 #### [facility] ([id number]) [address], [address] [place] [address] Nunez extractable nuclear Ab +Ribonucleoprotein extractable nuclear IgG Qn (S)on 12-30-2023 NUNEZ/E MAIL SYSTEM ADMINISTRATOR AB IGG <0.2 Normal <1.0 [facility] Comment on above: Performed By: #### C BCA, 61718-2, 90177-7, CMP, 3084-1, HA1C, 22908-4, 78146-3, 5130-0, 26068-7, 34765-4, 22384-4 #### [facility] ([id number]) [address] [facility], [address] [place] [address] Nunez extractable nuclear Ig G Qn (S)on 12-30-2023 ANTI-NUNEZ AB IGG <0.2 Normal <1.0 [facility] Comment on above: Performed By: #### C BCA, 48959-6, 57849-4, CMP, 3084-1, HA1C, 94557-0, 82210-5, 5130-0, 37381-2, 57298-7, 44343-3 #### [facility] ([id number]) [address] [facility], [address] [place] [address] URIC ACIDon 12-30-2023 Urate [Mass/Vol] 6.8 mg/dL Normal 2.6-7.2 [facility] Comment on above: Performed By: #### C BCA, 55926-4, 39394-1, CMP, 3084-1, HA1C, 90612-1, 55761-8, 5130-0, 16771-7, 10262-9, 66107-2 #### [facility] ([id number]) [address] [facility] [place] [address] Uric acidon 12-30-2023 Urate [Mass/Vol] 6.8 mg/dL 2.6 - 7.2 mg/dL [facility] Vital Signs Date Time Vital Sign Value Performing Clinician Alejo forde 11-16-2024 11:02-0400 Body height 182.9 cm Angela WINTER Work Phone: [facility] 11-16-2024 11:02-0400 Body mass index (BMI) [Ratio] 48.01 kg/m2 Angela Estevez PA Work Phone: [facility] 11-16-2024 11:02-0400 Body weight 160.57 kg Angela Estevez PA Work Phone: [facility] 11-16-2024 11:02-0400 Diastolic blood pressure 82 mm[Hg] Angela Estevez PA Work Phone: [facility] 11-16-2024 11:02-0400 Heart rate 78 /min Angela Estevez PA Work Phone: [facility] 11-16-2024 11:02-0400 Respiratory rate 16 /min Angela Estevez PA Work Phone: [facility] 11-16-2024 11:02-0400 SaO2% (BldA) [Mass fraction] 96 % Angela Estevez PA Work Phone: [facility] 11-16-2024 11:02-0400 Systolic blood pressure 130 mm[Hg] Angela Estevez PA Work Phone: [facility] 10-19-2024 10:53-0400 Body height 182.9 cm Rosa Isela Haskins APRN-DIRECTOR IT PROJECT Work Phone: [facility] 10-19-2024 10:53-0400 Body mass index (BMI) [Ratio] 47.14 kg/m2 Rosa Isela Haskins APRN-DIRECTOR IT PROJECT Work Phone: [facility] 10-19-2024 10:53-0400 Body temperature 98.49 [degF] Rosa Isela Haskins 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 Phone: [facility] [employer] [facility] 10-19-2024 10:53-0400 Body weight 157.67 kg Rosa Isela Haskins 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 Phone: [facility] 10-19-2024 10:53-0400 Diastolic blood pressure 70 mm[Hg] Rosa Isela Haskins 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 Phone: [facility] 10-19-2024 10:53-0400 Heart rate 77 /min Rosa Isela Haskins APRN-DIRECTOR IT PROJECT Work Phone: [facility] 10-19-2024 10:53-0400 Respiratory rate 18 /min Rosa Isela Haskins APRN-DIRECTOR IT PROJECT Work Phone: [facility] 10-19-2024 10:53-0400 SaO2% (BldA) [Mass fraction] 98 % Rosa Isela Haskins APRN-DIRECTOR IT PROJECT Work Phone: [facility] 10-19-2024 10:53-0400 Systolic blood pressure 100 mm[Hg] Rosa Isela Haskins APRN-DIRECTOR IT PROJECT Work Phone: [facility] 07-20-2024 11:34-0500 Body height 182.9 cm Pa Mathews PA Work Phone: [facility] 07-20-2024 11:34-0500 Body mass index (BMI) [Ratio] 44.08 kg/m2 Pa Mathews PA Work Phone: [facility] 07-20-2024 11:34-0500 Body weight 147.42 kg Pa Mathews PA Work Phone: [facility] 07-06-2024 08:38-0500 Body mass index (BMI) [Ratio] 47.33 kg/m2 Lisbeth Grimes EXPORT TRAFFIC DEPARTMENT MANAGER Work Phone: [facility] 07-06-2024 08:38-0500 Body weight 158.31 kg Lisbeth Grimes EXPORT TRAFFIC DEPARTMENT MANAGER Work Phone: [facility] 07-06-2024 08:38-0500 Diastolic blood pressure 88 mm[Hg] Lisbeth Grimes EXPORT TRAFFIC DEPARTMENT MANAGER Work Phone: [facility] 07-06-2024 08:38-0500 Heart rate 88 /min Lisbeth Grimes EXPORT TRAFFIC DEPARTMENT MANAGER Work Phone: [facility] 07-06-2024 08:38-0500 SaO2% (BldA) [Mass fraction] 94 % Lisbeth Grimes EXPORT TRAFFIC DEPARTMENT MANAGER Work Phone: [facility] 07-06-2024 08:38-0500 Systolic blood pressure 142 mm[Hg] Lisbeth Grimes EXPORT TRAFFIC DEPARTMENT MANAGER Work Phone: [facility] 06-09-2024 10:50-0500 Body height 182.9 cm Christopher Hermelindo DO Work Phone: [facility] 06-09-2024 10:50-0500 Body mass index (BMI) [Ratio] 46.52 kg/m2 Christopher Hermelindo DO Work Phone: [facility] 06-09-2024 10:50-0500 Body weight 155.58 kg Christopher Hermelindo DO Work Phone: [facility] 06-09-2024 10:50-0500 Diastolic blood pressure 83 mm[Hg] Christopher Hermelindo DO Work Phone: [facility] 06-09-2024 10:50-0500 Heart rate 73 /min Christopher Hermelindo DO Work Phone: [facility] 06-09-2024 10:50-0500 SaO2% (BldA) [Mass fraction] 94 % Christopher Hermelindo DO Work Phone: [facility] 06-09-2024 10:50-0500 Systolic blood pressure 131 mm[Hg] Christopher Hermelindo DO Work Phone: [facility] 05-10-2024 12:53-0400 Body height 182.9 cm Rosa Isela Haskins APRN-DIRECTOR IT PROJECT Work Phone: [facility] 05-10-2024 12:53-0400 Body mass index (BMI) [Ratio] 45.79 kg/m2 Rosa Isela Haskins 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 Phone: [facility] 05-10-2024 12:53-0400 Body temperature 98.71 [degF] Rosa Isela Haskins 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 Phone: [facility] 05-10-2024 12:53-0400 Body weight 153.13 kg Rosa Isela Haskins APRN-DIRECTOR IT PROJECT Work Phone: [facility] [employer] [facility] 05-10-2024 12:53-0400 Diastolic blood pressure 60 mm[Hg] Rosa Isela Haskins APRN-DIRECTOR IT PROJECT Work Phone: [facility] 05-10-2024 12:53-0400 Heart rate 74 /min Rosa Isela Haskins APRN-DIRECTOR IT PRO[employer] Work Phone: [facility] 05-10-2024 12:53-0400 Respiratory rate 18 /min Rosa Isela Haskins APRN-DIRECTOR IT PRO[employer] Work Phone: [facility] 05-10-2024 12:53-0400 SaO2% (BldA) [Mass fraction] 96 % Rosa Isela Haskins APRN-DIRECTOR IT PROJECT Work Phone: [facility] [employer] [facility] 05-10-2024 12:53-0400 Systolic blood pressure 124 mm[Hg] Rosa Isela Haskins APRN-DIRECTOR IT PROJECT Work Phone: [facility] 02-01-2024 16:06-0400 Body height 182.9 cm Rosa Isela Haskins APRN-MATTHIEU Work Phone: [facility] 02-01-2024 16:06-0400 Body mass index (BMI) [Ratio] 45.87 kg/m2 Rosa Isela Haskins APRN-DIRECTOR IT PRO[employer] Work Phone: [facility] 02-01-2024 16:06-0400 Body temperature 98.2 [degF] Rosa Isela Haskins APRN-DIRECTOR IT PRO[employer] Work Phone: [facility] 02-01-2024 16:06-0400 Body weight 153.41 kg Rosa Isela Haskins APRN-DIRECTOR IT PRO[employer] Work Phone: [facility] 02-01-2024 16:06-0400 Diastolic blood pressure 70 mm[Hg] Rosa Isela Haskins APRN-DIRECTOR IT PRO[employer] Work Phone: [facility] 02-01-2024 16:06-0400 Heart rate 72 /min Rosa Isela Haskins 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 Phone: [facility] 02-01-2024 16:06-0400 Respiratory rate 18 /min Rosa Isela Haskins 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 Phone: [facility] 02-01-2024 16:06-0400 SaO2% (BldA) [Mass fraction] 98 % Rosa Isela Haskins 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 Phone: [facility] 02-01-2024 16:06-0400 Systolic blood pressure 120 mm[Hg] Rosa Isela Haskins 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 Phone: [facility] 12-30-2023 13:57-0400 Body height 177.8 cm Rosa Isela Haskins 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 Phone: [facility] 12-30-2023 13:57-0400 Body mass index (BMI) [Ratio] 48.24 kg/m2 Rosa Isela Haskins 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 Phone: [facility] 12-30-2023 13:57-0400 Body weight 152.5 kg Rosa Isela Haskins 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 Phone: [facility] 12-30-2023 13:57-0400 Diastolic blood pressure 72 mm[Hg] Rosa Isela Haskins 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 Phone: [facility] 12-30-2023 13:57-0400 Heart rate 83 /min Rosa Isela Haskins 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 Phone: [facility] 12-30-2023 13:57-0400 Respiratory rate 20 /min Rosa Isela Haskins 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 Phone: [facility] 12-30-2023 13:57-0400 SaO2% (BldA) [Mass fraction] 95 % Rosa Isela Haskins 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 Phone: [facility] 12-30-2023 13:57-3602 Systolic blood pressure 136 mm[Hg] Rosa Isela Haskins APRN-DIRECTOR IT PROJECT Work Phone: [facility] Encounters Encounter Date Encounter Type Care Provider Facility Start: 03-27-2025 End: 03-27-2025 ambulatory Frank Bah MD Facility:[facility] Start: 03-13-2025 End: 03-13-2025 ambulatory Frank Bah MD Facility:[facility] Start: 02-06-2025 End: 02-06-2025 ambulatory Frank Bah MD Facility:[facility] Start: 01-02-2025 End: 01-02-2025 ambulatory Frank Bah MD Facility:[facility] Start: 12-12-2024 End: 12-12-2024 ambulatory Frank Bah MD Facility:[facility] Start: 11-16-2024 End: 11-16-2024 Bamboo flowsheet Angela WINTER Work Phone: [facility] Start: 11-16-2024 End: 11-16-2024 Danish WINTER Work Phone: [facility] [place] Start: 11-16-2024 [...] [facility] Start: 11-03-2024 End: 11-03-2024 ambulatory ROSA ISELA HASKINS [facility] Start: 10-19-2024 End: 10-19-2024 Office outpatient visit 15 minutes Rosa Isela Haskins APRN-DIRECTOR IT PROJECT Work Phone: [facility] Comment on above: Enlarged lymph node in neck (Primary Dx); Ganglion cyst of tendon sheath of left hand Start: 10-19-2024 End: 10-19-2024 [facility] ROSA ISELA Alvares [facility] Start: 10-04-2024 End: 10-04-2024 Bamboo flowsheet Lisbeth Grimes EXPORT TRAFFIC DEPARTMENT MANAGER Work Phone: [facility] [place] Start: 10-04-2024 End: 10-04-2024 Bamboo flowsheet Lisbeth Grimes EXPORT TRAFFIC DEPARTMENT MANAGER Work Phone: [facility] [place] Start: 10-04-2024 End: 10-04-2024 ambulatory LISBETH GRIMES Not Available Start: 09-23-2024 End: 09-23-2024 ambulatory LISBETH GRIMES [facility] Start: 08-18-2024 End: 08-18-2024 Bamboo flowsheet Ludy Crowley PT Work Phone: [facility] Start: 08-18-2024 End: 08-18-2024 Bamboo flowsheet Ludy Alvares Carline PT Work Phone: [facility] Start: 08-18-2024 End: 08-18-2024 ambulatory Ludy Woodsgs PT Work Phone: [facility] Comment on above: Neck pain (Primary D x); Chronic midline low back pain without sciatica; Multiple joint pain; Paresthesia Start: 08-16-2024 End: 08-16-2024 Bamboo flowsheet Nandini Tattersall AUTOMATION TECH [facility] Start: 08-16-2024 End: 08-16-2024 Bamboo flowsheet Nandini Tattersall AUTOMATION TECH [facility] Start: 08-16-2024 End: 08-16-2024 ambulatory Nandini Tattersall AUTOMATION TECH [facility] Comment on above: Neck pain (Primary D x); Chronic midline low back pain without sciatica; Multiple joint pain; Paresthesia Start: 08-11-2024 End: 08-11-2024 ambulatory Danni Luna AUTOMATION TECH Work Phone: [facility] Comment on above: Neck pain (Primary D x); Chronic midline low back pain without sciatica; Multiple joint pain; Paresthesia Start: 08-08-2024 End: 08-18-2024 Telephone encounter Lisbeth Grimes EXPORT TRAFFIC DEPARTMENT MANAGER Work Phone: [facility] Start: 08-02-2024 End: [...] Start: 07-21-2024 End: 07-21-2024 ambulatory Nandini Cox AUTOMATION TECH [facility] Comment on above: Neck [...] 07-12-2024 End: 07-12-2024 Bamboo flowsheet Nandini Tattersall AUTOMATION TECH [facility] Start: 07-12-2024 End: 07-12-2024 Bamboo flowsheet Nandini Tattersall AUTOMATION TECH [facility] Start: 07-12-2024 End: 07-12-2024 ambulatory Nandini Tattersall AUTOMATION TECH [facility] Comment on above: Neck pain (Primary D x); Chronic midline low back pain without sciatica; Multiple joint pain; Paresthesia Start: 07-07-2024 End: 07-07-2024 Bamboo flowsheet Nandini Tattersall AUTOMATION TECH [facility] Start: 07-07-2024 End: 07-07-2024 Bamboo flowsheet Nandini Tattersall AUTOMATION TECH [facility] Start: 07-07-2024 End: 07-07-2024 ambulatory Nandini Tattersall AUTOMATION TECH [facility] Comment on above: Neck pain (Primary D x); Chronic midline low back pain without sciatica; Multiple joint pain; Paresthesia Start: 07-06-2024 End: 07-06-2024 Office outpatient visit 25 minutes Lisbeth Grimes EXPORT TRAFFIC DEPARTMENT MANAGER Work Phone: [facility] Comment on above: Neck pain (Primary D x); Paresthesias; Bilateral carpal tunnel syndrome; Ulnar neuropathy of both upper extremities Start: 07-06-2024 End: 07-06-2024 ambulatory LISBETH GRIMES Not Available Start: 07-05-2024 End: 07-05-2024 Bamboo flowsheet Aniceto Casarez DO [facility] Start: 07-05-2024 End: 07-05-2024 Bamboo flowsheet Aniceto Casarez DO Work Phone: [facility] Start: 07-05-2024 End: 07-05-2024 Patient encounter procedure Aniceto Casarez DO Work Phone: [facility] Comment on above: Ulnar neuropathy of both upper extremities (Primary Dx) Start: 07-05-2024 End: 07-05-2024 ambulatory ANICETO CASAREZ Not Available Start: 06-23-2024 End: 06-23-2024 Bamboo flowsheet Nandini Tattersall AUTOMATION TECH [facility] Start: 06-23-2024 End: 06-23-2024 Bamboo flowsheet Nandini Tattersall AUTOMATION TECH [facility] Start: 06-23-2024 End: 06-23-2024 ambulatory Nandini Tattersall AUTOMATION TECH [facility] Comment on above: Neck pain (Primary D x); Chronic midline low back pain without sciatica; Multiple joint pain; Paresthesia Start: 06-20-2024 End: 06-20-2024 Bamboo flowsheet Ludy Dia Carline PT Work Phone: [facility] [...] Bamboo flowsheet Aniceto Casarez DO Work Phone: [facility] Start: 06-09-2024 End: 06-09-2024 Bamboo flowsheet Aniceto Glezett DO Work Phone: [facility] [facility] Start: 06-09-2024 End: 06-09-2024 Office outpatient new 45 minutes Mauricesabas Glezett DO Work Phone: [facility] [facility] Comment on above: Paresthesia (Primary Dx) Start: 06-09-2024 End: 06-09-2024 ambulatory ANICETO CASAREZ Not Available Start: 05-10-2024 End: 05-10-2024 Office outpatient visit 15 minutes Rosa Isela Haskins 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 Phone: [facility] Comment on above: Chronic pain syndrom e (Primary Dx); Pain in joints Start: 05-10-2024 End: 05-10-2024 ambulatory [facility] Start: 03-17-2024 End: 03-17-2024 Patient encounter procedure MD Pa San Work Phone: [facility] [address] Work Phone: Start: 03-17-2024 End: 03-17-[address] [facility] Work Phone: Start: 02-01-2024 End: 02-01-2024 ambulatory [facility] Start: 02-01-2024 Encounter for genera l adult medical examination without abnormal findings [facility] Start: 02-01-2024 End: 02-01-2024 Patient encounter procedure [facility] 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 Phone: [facility] Work Phone: Start: 02-01-2024 End: 02-01-2024 Periodic preventive med est patient 40-64yrs Rosa Isela Haskins APRN-DIRECTOR IT PROJECT Work Phone: [facility] Comment on above: Annual physical exam (Primary Dx); Blood tests for routine general physical examination; Encounter for screening for malignant neoplasm of prostate; Special screening for malignant neoplasm of colon Start: 02-01-2024 End: 02-01-2024 Physical examination Rosa Isela Haskins [facility] Work Phone: [facility] Start: 02-01-2024 End: 02-01-2024 ambulatory [facility] Start: 02-01-2024 Encounter for genera l adult medical examination without abnormal findings [facility] Start: 12-30-2023 End: 12-30-2023 ambulatory [facility] Start: 12-30-2023 End: 12-30-2023 Office outpatient new 45 minutes [facility] Work Phone: [facility] Comment on above: Positive CATHY (antinu clear antibody) (Primary Dx); Pain in other joint; Joint swelling; Screening for diabetes mellitus (DM) Start: 12-30-2023 End: 12-30-2023 ambulatory [facility] Procedures Date Procedure Procedure Detail Performing Clinician Start: 10-19-2024 Adult depression scr eening assessment Rosa Isela Haskins [facility] Work Phone: Start: 07-21-2024 Sedimentation rate r bc automated Pa WINTER Work Phone: Start: 07-05-2024 End: 07-05-2024 Needle emg ea extremty w/paraspinl area complete Aniceto Casarez DO Work Phone: Start: 05-10-2024 [facility] Work Phone: Start: 02-01-2024 Adult depression scr eening assessment [facility] Work Phone: Start: 12-30-2023 Adult depression scr eening assessment Rosa Isela Haskins 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 Phone: Plan of Treatment Date Care Activity Detail Author Start: 05-03-2027 Screening for malign ant neoplasm of colon [facility] Start: 10-19-2025 Adult BMI Screening Adult BMI Screen ing [facility] Start: 10-19-2025 Depression Screening Depression Scre ening [facility] Start: 10-19-2025 Tobacco Screening Tobacco Screening [facility] Start: 05-10-2025 Adult BMI Follow Up Plan Adult BMI Follow Up Plan [facility] Start: 05-10-2025 Adult BMI Screening Adult BMI Screen ing [facility] Start: 05-10-2025 Depression Screening Depression Scre ening [facility] Start: 05-10-2025 Tobacco Screening Tobacco Screening [facility] Start: 04-03-2025 Influenza vaccination Influenz a Vaccine (Season Ended) [facility] Start: 01-31-2025 Adult BMI Follow Up Plan Adult BMI Follow Up Plan [facility] Start: 01-31-2025 Adult BMI Screening Adult BMI Screen ing [facility] Start: 01-31-2025 Depression Screening Depression Scre ening [facility] Start: 01-31-2025 Tobacco Screening Tobacco Screening [facility] Start: 01-11-2025 End: 01-11-2025 Patient encounter procedure 01/11/2025 11:00 AM EDT Office Visit [facility] [address] [place] [phone] Angela Estevez PA [address] [place] [address] [facility] Start: 12-29-2024 Adult BMI Follow Up Plan Adult BMI Follow Up Plan [facility] Start: 12-29-2024 Adult BMI Screening Adult BMI Screen ing [facility] Start: 12-29-2024 Depression Screening Depression Scre ening [facility] Start: 12-29-2024 Tobacco Screening Tobacco Screening [facility] Start: 11-16-2024 End: 11-16-2024 Patient encounter procedure 11/16/2024 11:00 AM EDT Office Visit [facility] [address] [place] [phone] Angela Estevez PA [address] [place] [id number] Arrived [facility] Comment on above: Arrived Start: 11-03-2024 End: 11-03-2024 Patient encounter procedure 11/03/2024 9:45 AM EDT Appointment [facility] [address] [place] [phone] [facility] Start: 10-19-2024 End: 10-19-2025 CT Neck WO contrast CT neck soft tissue without contrast Imaging Routine Enlarged lymph node in neck Expected: 10/19/2024, Expires: 10/19/2025 [facility] Work Phone: Comment on above: Expected: 10/19/2024 , Expires: 10/19/2025 Start: 10-04-2024 End: 10-04-2024 Patient encounter procedure 10/04/2024 1:40 PM EST Office Visit [facility] [address] [facility] [place] [phone] Lisbeth Grimes NP [address] [place] [phone] Arrived [facility] Comment on above: Arrived Start: 09-13-2024 End: 09-13-2024 Patient encounter procedure 09/13/2024 11:20 AM EST Office Visit [facility] [address] [place] [phone] Rosa Isela Haskins, WANIGAN CLERK-DIRECTOR IT PROJECT [address] [place] [phone] [facility] Start: 09-06-2024 End: 02-04-2025 Patient encounter procedure 09/06/2024 8:20 AM EST Office Visit [facility] [place] [address] [place] [phone] Lisbeth Grimes NP [address] [place] [phone] [facility] [place] Start: 08-18-2024 End: 08-18-2024 ambulatory 08/18/2024 10:00 AM EST Treatment [facility] [address] [place] [phone] Ludy Crowley, PT [address] [place] [address] [facility] Start: 08-16-2024 End: 08-16-2024 ambulatory [facility] Comment on above: Arrived Start: 08-11-2024 End: 08-11-2024 ambulatory 08/11/2024 10:00 AM EST Treatment [facility] [address] [place] [phone] Danni Luna, AUTOMATION TECH [address] [place] [address] [facility] Start: 08-10-2024 End: 08-10-2024 Patient encounter procedure 08/10/2024 11:00 AM EST Office Visit [facility] [address] [place] [phone] Pa Mathews, PA [address] [address] [facility] Start: 08-09-2024 End: 08-09-2024 Patient encounter procedure 08/09/2024 9:40 AM EST Office Visit [facility] [place] [address] [place] [phone] Lisbeth Grimes NP [address] [place] [address] [facility] [place] [facility] Start: 08-08-2024 End: 08-08-2024 ambulatory 08/08/2024 9:00 AM EST Treatment [facility] [address] [place] [phone] Danni Luna, AUTOMATION TECH [address] [place] [address] [facility] Start: 08-05-2024 End: 08-05-2024 ambulatory 08/05/2024 8:30 AM EST Treatment [facility] [address] [place] [phone] Ludy Crowley, PT [address] [place] [address] [facility] Start: 08-02-2024 End: 08-02-2024 ambulatory 08/02/2024 8:30 AM EST Treatment [facility] [address] [place] [phone] Ludy Crowley, PT [address] [place] [address] Arrived [facility] Comment on above: Arrived Start: 07-28-2024 End: 07-28-2024 ambulatory [facility] Start: 07-25-2024 End: 07-25-2024 ambulatory [facility] Comment on above: Arrived Start: 07-21-2024 End: 07-21-2024 ambulatory 07/21/2024 9:30 AM EST Treatment [facility] [address] [place] [phone] Nandini Cox, AUTOMATION TECH [facility] Start: 07-20-2024 End: 07-20-2025 C reactive protein [Mass/volume] in Serum or Plasma C-reactive protein Lab Routine Polyarthralgia Expected: 07/20/2024 (Approximate), Expires: 07/20/2025 [facility] Comment on above: Expected: 07/20/2024 (Approximate), Expires: 07/20/2025 Start: 07-20-2024 End: 07-20-2025 Erythrocyte sedimentation rate Sedimentation rate, automated Lab Routine Polyarthralgia Expected: 07/20/2024 (Approximate), Expires: 07/20/2025 [facility] Comment on above: Expected: 07/20/2024 (Approximate), Expires: 07/20/2025 Start: 07-20-2024 End: 07-20-2025 LYME DISEASE ANTIBODY (IGG), IMMUNOBLOT LYME DISEASE ANTIBODY (IGG), IMMUNOBLOT Lab Routine Polyarthralgia Expected: 07/20/2024 (Approximate), Expires: 07/20/2025 [facility] Comment on above: Expected: 07/20/2024 (Approximate), Expires: 07/20/2025 Start: 07-20-2024 End: 07-20-2025 Myoglobin, serum Myoglobin, serum Lab Routine Polyarthralgia Expected: 07/20/2024 (Approximate), Expires: 07/20/2025 [facility] Work Phone: Comment on above: Expected: 07/20/2024 (Approximate), Expires: 07/20/2025 Start: 07-20-2024 End: 07-20-2024 Patient encounter procedure [facility] Comment on above: Paresthesia of hand, bilateral (Primary Dx); Ulnar neuropathy of both upper extremities Start: 07-19-2024 End: 07-19-2024 ambulatory 07/19/2024 10:00 AM EST Treatment [facility] [address] [place] [phone] Ludy Crowley, PT [address] [place] [address] [facility] Start: 07-14-2024 End: 07-14-2024 ambulatory 07/14/2024 9:30 AM EST Treatment [facility] [address] [place] [phone] Nandini Cox, GILBERTO [facility] Start: [...] procedure 07/06/2024 8:40 AM EST Office Visit [facility] [address] [place] [phone] Lisbeth Grimes NP [address] [place] [phone] [facility] [address] Start: 07-05-2024 End: 07-05-2024 Patient encounter procedure [facility] Comment on above: Arrived Start: 07-04-2024 End: 07-04-2024 ambulatory 07/04/2024 9:00 AM EST Treatment [facility] [address] [place] [phone] Danni Luna, AUTOMATION TECH [address] [place] [address] [facility] Start: 06-28-2024 End: 06-28-2024 ambulatory 06/28/2024 10:30 AM EST Treatment [facility] [address] [place] [phone] Danni Luna, AUTOMATION TECH [address] [place] [address] [facility] Start: 06-23-2024 End: 06-23-2024 ambulatory 06/23/2024 8:30 AM EST Treatment [facility] [address] [place] [address] SonyraphaelNandiniGILBERTO Neck pain (Primary Dx); Chronic midline low back pain without sciatica; Multiple joint pain; Paresthesia [facility] Comment on above: Neck pain (Primary D x); Chronic midline low back pain without sciatica; Multiple joint pain; Paresthesia Start: 06-16-2024 End: 06-16-2024 Patient encounter procedure 06/16/2024 11:00 AM EST Procedure Visit [facility] [address] [phone] Aniceto Casarez DO [address] [phone] [facility] Start: 06-09-2024 End: 06-09-2025 EMG 2 Extremities EMG 2 Extremities Neurology Routine Paresthesia Expected: 06/09/2024, Expires: 06/09/2025 [facility] Work Phone: Comment on above: Expected: 06/09/2024 , Expires: 06/09/2025 Start: 06-09-2024 End: 06-09-2024 Patient encounter procedure 06/09/2024 11:00 AM EST Office Visit [facility] [address] [phone] Aniceto Casarez DO [address] [phone] Arrived [facility] Comment on above: Arrived Start: 04-03-2024 Influenza vaccination Influenza Vacc ine [facility] Start: 03-17-2024 Hemolytic complement CH50 level [facility] Start: 03-17-2024 Hepatitis B core antibody measurement [facility] Start: 03-17-2024 [facility] Start: 02-01-2024 End: 02-01-2024 Patient encounter procedure 02/01/2024 4:00 PM EDT Office Visit [facility] [address] [place] [address] Rosa Isela Haskins, WANIGAN CLERK-DIRECTOR IT PROJECT [address] [place] [phone] [facility] Start: 2016 Administration of varicella zoster vaccine Zoster (Shingles) Vaccine (1 of 2) [facility] Start: 2011 Screening for malign ant neoplasm of colon Colonoscopy [facility] Start: 1985 DTaP,Tdap and Td Vaccines (1 - Tdap) DTaP,Tdap and Td Vaccines (1 - Tdap) [facility] Start: 1966 Screening for malign ant neoplasm of colon [facility] Start: 1966 Tobacco Counseling Tobacco Counselin g [facility] Aldolase measurement [facility] End: 12-29-2024 CATHY Screen w/ Reflex CATHY Screen w/ Reflex Lab Routine Positive CATHY (antinuclear antibody) Pain in other joint 1 Occurrences starting 12/30/2023 until 12/29/2024 [facility] Work Phone: Comment on above: 1 Occurrences starti ng 12/30/2023 until 12/29/2024 Chromatin Ab [Units/volume] in Serum or Plasma [facility] Cologuard [facility] Cologuar d [facility] Lab Routine Special screening for malignant neoplasm of colon Ordered: 02/01/2024 [facility] Comment on above: Ordered: 02/01/2024 Complement C3 [Mass/volume] in Serum or Plasma [facility] Complement C4 [Mass/volume] in Serum or Plasma [facility] End: 12-30-2024 Hemoglobin A1c/Hemoglobin.total in Blood Hemoglobin A1c Lab Routine Screening for diabetes mellitus (DM) 1 Occurrences starting 12/30/2023 until 12/30/2024 [facility] Comment on above: 1 Occurrences starti ng 12/30/2023 until 12/30/2024 Hemoglobin A1c/Hemoglobin.total in Blood Hemoglobin A1c Lab Routine Screening for diabetes mellitus (DM) 12/30/2023 10:10 PM EDT [facility] Hepatitis B virus surface Ab [Presence] in Serum [facility] Hepatitis B virus surface Ag [Presence] in Serum or Plasma by Immunoassay [facility] Hepatitis C virus Ig G Ab [Presence] in Serum or Plasma by Immunoassay [facility] Homogenous nuclear A b pattern [Titer] in Serum [facility] End: 01-31-2025 Lipid panel Lipid panel Lab Routine Blood tests for routine general physical examination 1 Occurrences starting 02/01/2024 until 01/31/2025 [facility] Phone: Comment on above: 1 Occurrences starti ng 02/01/2024 until 01/31/2025 Lupus anticoagulant [Interpretation] in Platelet poor plasma [facility] Nuclear Ab [Presence ] in Serum by Immunoassay CATHY Screen w/ Reflex Lab Routine Positive CATHY (antinuclear antibody) Pain in other joint 12/30/2023 10:10 PM EDT [facility] [Titer] i n Serum [facility] End: 01-31-2025 Prostatic specific antigen screen Prostatic specific antigen screen Lab Routine Encounter for screening for malignant neoplasm of prostate 1 Occurrences starting 02/01/2024 until 01/31/2025 [employer] Comment on above: 1 Occurrences starti ng 02/01/2024 until 01/31/2025 Reagin Ab [Presence] in Serum by RPR [facility] Thrombin time [facility] Thyroglobulin Ab [Units/volume] in Serum or Plasma [facility] Thyroperoxidase Ab [Units/volume] in Serum or Plasma [facility] Payers Date Payer Category Payer Unknown 2024 Self-pay 2024 Unknown [id number] 2023 [facility] [id number] 2023 Medicaid [id number] 2023 Private Health Insurance [facility] MEDICAID [id number] 2023 Medicaid [id number] 1966 Unknown [id number] 2.840.1.573307.3.579.2. 1285 1966 Unknown [id number] 2.840.1.959911.3.579.2. 1285 1966 Unknown [id number] 2.840.1.462753.3.579.2. 1285 1966 Unknown [id number] 2.840.1.599569.3.579.2. 1285 1966 Unknown [id number] 2.16840.1.703631.3.579.2. 1285 1966 Unknown [id number] 2.16840.1.022506.3.579.2. 1285 1966 Unknown [id number] 2.16840.1.837630.3.579.2. 1285 1966 Unknown [id number] 2.16840.1.624491.3.579.2. 1285 1966 Unknown [id number] 2.16.840.1.959002.3.579.2. 1286 1966 Unknown [id number] 2.16.840.1.401956.3.579.2. 1286 1966 Unknown [id number] 2.16.840.1.715679.3.579.2. 9 1966 Unknown [id number] 2.16.840.1.591487.3.579.2. 1258 1966 Unknown [id number] 2.16.840.1.678595.3.579.2. 1258 1966 Unknown [id number] 2.16.840.1.257276.3.579.2. 1258 1966 Unknown [id number] 2.16.840.1.573328.3.579.2. 1258 1966 Unknown [id number] 2.16.840.1.954429.3.579.2. 1258 1966 Unknown [id number] 2.16.840.1.150362.3.579.2. 1258 1965 Unknown [id number] 2.16.840.1.148269.3.579.2. 1258 1965 Unknown [id number] 2.16.840.1.100954.3.579.2. 1258 1966 Unknown [id number] 2.16.840.1.277196.3.579.2. 1258 1966 Unknown [id number] 2.16.840.1.293057.3.579.2. 1258 1966 Unknown [id number] 2.16.840.1.888542.3.579.2. 1258 1966 Unknown [id number] 2.16.840.1.606477.3.579.2. 1258 1966 Unknown [id number] 2.16.840.1.972286.3.579.2. 1258 1966 Unknown [id number] 2.16.840.1.912727.3.579.2. 1259 1966 Unknown [id number] 2.16.840.1.064543.3.579.2. 1259 1966 Unknown [id number] 2.16.840.1.156931.3.579.2. 196 1966 Unknown [id number] 2.16.840.1.985065.3.579.2. 196 1966 Unknown [id number] 2.16.840.1.328651.3.579.2. 196 1966 Unknown [id number] 2.16.840.1.407467.3.579.2. 196 1966 Unknown [id number] 2.16.840.1.292917.3.579.2. 196 1966 Unknown [id number] 2.16.840.1.048100.3.579.2. Unknown [id number] 2.16.840.1.171141.3.579.2. 531 Social History Date Type Detail Facility Tobacco smoking stat [email or web address]IS Unknown if ever smoked [facility] Work Phone: Start: 1965 Sex Assigned At Male F [facility] Tobacco smoking stat [email or web address]IS Tobacco smoking consumption unknown [facility] Start: 1965 Sex assigned at Not on file [facility] Start: 07-06-2024 End: 11-16-2024 Gender identity Not on file [facility] Start: 07-06-2024 Tobacco smoking stat [email or web address]IS Smokes tobacco daily [facility] History of tobacco use Cigarette Smoker [facility] Start: 07-06-2024 End: 11-16-2024 Cigarettes smoked current (pack per day) - Reported 1 [facility] Start: 07-06-2024 End: 07-19-2024 Tobacco use and exposure User of smokeless tobacco [facility] History of tobacco use Snuff User [facility] Start: 07-06-2024 End: 11-16-2024 Alcoholic beverage intake Current drinker of alcohol (finding) [facility] Start: 12-30-2023 End: 07-19-2024 Tobacco smoking status NHIS Ex-smoker [facility] History of tobacco use Current smoker [facility] History of tobacco use Chews Tobacco [facility] Adolescent depressio n screening assessment 7 [facility] Start: 12-30-2023 Alcohol Comment weekly [facility] Start: 03-08-2015 Sex Male (finding) [facility] Clinical Notes 12-30-2023 to 11-16-2024 MAGGY [...] wrist extensors , wrist flexor , and licensed psychologist strength 5/5. LUE strength deltoid , biceps , triceps , wrist extensors , wrist flexor , and licensed psychologist strength 5/5. RLE strength iliopsoas, quadriceps, tibialis [...] of the cervical spine without contrast at [facility] on 09/26/2024: Multilevel degenerative changes most significant [...] EMG of the bilateral upper extremities at [facility] on 07/05/2024: Bilateral ulnar [...] worsening symptoms. documented in this encounter [facility] 10-19-2024 History of Presen t illness Narrative Images from the original note were not included. [address] [place] [address] SUBJECTIVE: Patient ID: Son Dumas is a [...] Guzman 10/19/24 1251 documented in this encounter [facility] 08-18-2024 History of Presen t illness Narrative [...] MRI approved. documented in this encounter [facility] 08-15-2024 Telephone encounter Note Noted, thank you! [facility] Work Phone: 08-15-2024 Miscellaneous Notes Noted, thank you! Appeal request has been approved and denial has been overturned. I faxed the MRI Cervical Spine order to [facility] with updated approval information. Sending back to Lisbeth MARIOI I spoke with [facility] who confirmed that the appeal request has been received and is pending/ open. Appeal ID# [id number] Appeal request with physical therapy notes 1-7 have been faxed to [facility]. Will continue to follow Hello! The patient has reportedly been in physical therapy since 06/20/2024, so he should have completed six weeks by now. Is [id number] still an option for his MRI cervical spine denial, or are we able to file an appeal for this? documented in this encounter [facility] 08-15-2024 Telephone encounter Note Appeal request has been approved and denial has been overturned. I faxed the MRI Cervical Spine order to [facility] with updated approval information. Sending back to Lisbeth ni FYI [facility] 08-15-2024 Telephone encounter Note I spoke with [facility] who confirmed that the appeal request has been received and is pending/ open. Appeal ID# [id number] [facility] 08-09-2024 Telephone encounter Note Appeal request with physical therapy notes 1-7 have been faxed to [facility]. Will continue to follow [facility] 08-08-2024 Telephone encounter Note Hello! The patient has reportedly been in physical therapy since 06/20/2024, so he should have completed six weeks by now. Is [id number] still an option for his MRI cervical spine denial, or are we able to file an appeal for this? [facility] 08-02-2024 History of Presen t illness Narrative [...] as able. documented in this encounter [facility] 07-25-2024 History of Presen t illness Narrative [...] as able. documented in this encounter [facility] 07-20-2024 History of Presen t illness Narrative [...] is normal. Strength additional comments: 5/5 EQUAL CHECKERER HAND STRENGTH Neurovascular Right Right neurovascular exam is [...] Signs Painful arc test: positive Biceps/govind Signs Flagler's test: positive Instability Signs Anterior apprehension test: [...] urgent evaluation. documented in this encounter [facility] 07-14-2024 Telephone encounter Note PT office notes needed faxed to [facility] -[phone] Ty [facility] 07-14-2024 Miscellaneous Notes PT office notes needed faxed to [facility] -[phone] Ty documented in this encounter [facility] 07-06-2024 History of Presen t illness Narrative [...] wrist extensors , wrist flexor , and licensed psychologist strength 5/5. LUE strength deltoid , biceps , triceps , wrist extensors , wrist flexor , and licensed psychologist strength 5/5. RLE strength iliopsoas, quadriceps, tibialis [...] reflex 2+. LLE Knee reflex 2+. Coordination: Brxskq-be-dghu testing normal. Rapid alternating movements are normal. Gait: Normal. Review and summary of old records: EMG of the bilateral upper extremities at [facility] on 07/05/2024: Bilateral ulnar [...] this would be best managed by a maintenance painter Ulnar neuropathy of both upper extremities [...] new or worsening symptoms. Lisbeth Grimes NP [facility] documented in this encounter [facility] 07-06-2024 Instructions Lisbeth Grimes NP - 07/06/2024 8:40 AM EST - MRI [facility] the cervical spine ([facility]) - Referral to orthopedic surgery ([place]) - Referral to pain management ([facility]) documented in this encounter [facility] 07-05-2024 History of Presen t illness Narrative Images from the original note were not included. Reason for Appointment: EMG Patient: Son Dumas : 1965 EMG Computer: One[employer] Referring Physician: Dr. Aniceto Casarez EMG: BUE juke box mechanic: Christiano Castro RT(R) Office Location: [place] Reason for EMG: c/o numbness/tingling in left hand, joint pain throughout body, neck pain. No hx of DM. Not on blood thinners. Comments: Procedure was explained to the patient who expressed understanding. Patient appeared to have tolerated the test well despite some discomfort due to the nature of the test. documented in this encounter [facility] 06-20-2024 History of Presen t illness Narrative [...] per both neck and back index's at [place] Short Term Goal #4: pt will be ind with HEP for maintenance at [place] and not feel the need for further Dx testing/intervention at [place] Pt will benefit from skilled PT to address the above impairments for 1-3x/week for 6 weeks pending pt needs/progress I hereby deem this POC medically necessary. Please sign below. Date: documented in this encounter [facility] 06-09-2024 History of Presen t illness Narrative [...] , wrist extensors , wrist flexor , licensed psychologist strength 5/5. LUE Strength deltoid , biceps , triceps , wrist extensors , wrist flexor , licensed psychologist strength 5/5. RLE Strength illopsoas, quadriceps, tibialis [...] reflex 2+ . Martin's sign negative. Coordination: Baietf-ea-vvfj testing and rapid alternating movements are normal [...] return instructions documented in this encounter [facility] 05-10-2024 History of Presen t illness Narrative Images from the original note were not included. [address] [place] [address] SUBJECTIVE: Patient ID: Son Dumas is a [...] Guzman 05/10/24 1413 documented in this encounter [facility] 02-01-2024 History of Presen t illness Narrative Images from the original note were not included. [address] [facility] [id number] SUBJECTIVE: Patient ID: Son Dumas is a [...] Guzman 02/01/24 1654 documented in this encounter [facility] 12-30-2023 History of Presen t illness Narrative Images from the original note were not included. [facility] [address] SUBJECTIVE: Patient ID: Son Dumas is a [...] Guzman 12/30/23 1634 documented in this encounter [facility] Evaluation note No assessment inform ation available [facility] Work Phone: Evaluation note Diagnosis Paresthesia- Primary Disturbance of skin sensation documented in this encounter [facility]* Diagnosis Neck pain- Primary [...] for diabetes mellitus [facility] Diagnosis Annual physical exam- Primary Routine general medical examination at a health care facility Blood tests for routine general physical examination Laboratory examination ordered as part of a routine general medical examination Encounter for screening for malignant neoplasm of prostate Special screening for malignant neoplasm of colon Special screening for malignant neoplasms, colon [facility] Diagnosis Chronic pain syndrome- Primary Pain in joints Pain in joint, multiple sites [facility] Diagnosis Enlarged lymph node in neck- Primary Ganglion cyst of tendon sheath of left hand [facility] Diagnosis Neck pain- Primary Cervicalgia DDD (degenerative disc disease), cervical Degeneration of cervical intervertebral disc Lumbosacral radiculopathy Thoracic or lumbosacral neuritis or radiculitis, unspecified Low back pain at multiple sites documented [facility]* Attachments The following attachments cannot be sent through Care Everywhere. * Swollen Joints ([place]ri [place]ankan) [facility]* Attachments The following attachments cannot be sent through Care Everywhere. * Yearly Physical for Adults ([place]ri Lankan) [facility]* Attachments The following attachments cannot be sent through Care Everywhere. * Joint Pain ([place]ri Lankan) [facility]* Attachments The following attachments cannot be sent through Care Everywhere. * Ganglion cyst ([place]ri Lankan) documented in this encounterN[facility] HospitalReha for referral (narrative)* Consultation (Routine) - Pending Review Specialty Diagnoses / Procedures Referred By Andriy lambert Referred To Contact Rheumatology Diagnoses Positive CATHY (antinuclear antibody) Pain in other joint Joint swelling Rosa Isela Haskins APRN-CNP [address] [place] [address] Pa San MD [address] [place] [address] Referral ID Status Reason Start Date Expiration Date Visits Requested Visits Authorized [id number] Pending Review Specialty Services Required 12/30/2023 12/29/2024 1 1 [facility] (narrative)* Consultation (Routine) - Pending Review Specialty Diagnoses / Procedures Referred By Andriy lambert Referred To Contact Neurology Diagnoses Pain in joints Rosa Isela Haskins APRN-CNP [address] [place] [address] David Watts MD [address] [facility] [address] [place] [address] Referral ID Status Reason Start Date Expiration Date Visits Requested Visits Authorized [id number] Pending Review Specialty Services Required 05/10/2024 05/10/2025 1 1 [facility] N[facility]ative* Consultation (Routine) - Closed Specialty Diagnoses / Procedures Referred By Andriy lambert Referred To Contact Neurology Diagnoses Pain in unspecified joint Procedures FL OFFICE/OUTPATIENT NEW LOW MDM 30 MINUTES Rosa Isela Haskins CRNP [address] [facility] [place] [address] Phone: tel: fax: David Watts MD [address] [place] [address] Phone: tel: fax: Referral ID Status Reason Start Date Expiration Date V isits Requested Visits Authorized [id number] Closed Consult and Treat 05/12/2024 11/08/2024 1 1 [facility] Narrative* Rehabilitation - Outpatient (Routine) - Authorized Specialty Diagnoses / Procedures Referred By Andriy lambert Referred To Contact Physical Therapy Diagnoses Paresthesia Procedures FL OFFICE/OUTPATIENT NEW HIGH MDM 60 MINUTES Aniceto Casarez DO [address] [place] [address] Phone: tel: fax: Ludy Crowley, PT [address] [place] [address] Phone: tel: fax: Referral ID Status Reason Start Date Expiration Date Visits Requested Visits Authorized [id number] Authorized Specialty Services Required 06/09/2024 12/06/2024 30 30 [facility] Narrative* Rehabilitation - Outpatient (Routine) - Authorized Specialty Diagnoses / Procedures Referred By Contac t Referred To Contact Physical Therapy Diagnoses Paresthesia Procedures FL OFFICE/OUTPATIENT NEW HIGH MDM 60 MINUTES Aniceto Casarez DO [address] [place] [address] Phone: tel: fax: Ludy Crowley, PT [address] [facility] [address] Phone: tel: fax: Referral ID Status Reason Start Date Expiration Date Visits Requested Visits Authorized [id number] Authorized Specialty Services Required 06/09/2024 08/02/2024 30 30 [facility] Narrative* Rehabilitation - Outpatient (Routine) - Authorized Specialty Diagnoses / Procedures Referred By Contemily t Referred To Contact Physical Therapy Diagnoses Paresthesia of skin Procedures FL THERAPEUTIC PX 1/> AREAS EACH 15 MIN EXERCISES Aniceto Casarez DO [address] [place] [address] Phone: tel: fax: Ludy Crowley, PT [address] [place] [address] Phone: tel: fax: Referral ID Status Reason Start Date Expiration Date V isits Requested Visits Authorized [id number] Authorized 08/03/2024 08/02/2025 23 23 [facility] [...] section and content) DATE CREATED AUTHOR 02/02/2024 [facility] DATE CREATED AUTHOR AUTHOR'S ORGANIZ ATION 03/31/2024 [facility] DATE CREATED AUTHOR AUTHOR'S ORGANIZ ATION 10/21/2024 [facility] DATE CREATED AUTHOR AUTHOR'S ORGANIZ ATION 11/06/2024 [facility] DATE CREATED AUTHOR AUTHOR'S ORGANIZ ATION 11/18/2024 [facility] EPIC DATE CREATED AUTHOR AUTHOR'S ORGANIZ ATION 04/01/2025 [facility] Teams (unrecognized sec tion and content) Team Status: Inactive Member Role Status Dates Pa San MD Attending Provider Active St art: March 17, 2024 End: March 17, 2024 Senior Engineering Team Leader Relationship Specialty Start Date End Date Rosa Isela Haskins CRNP [address] [place] [address] Referring Physician Nurse Practitioner 05/13/24 Aniceto Casarez DO [address] [address] Referring Physician Neurology 06/09/24 Senior Engineering Team Leader Relationship Specialty Start Date End Date Rosa Isela Haskins CRNP [address] [place] [address] Referring Physician Nurse Practitioner 05/13/24 Aniceto Casarez DO [address] [address] Referring Physician Neurology 06/09/24 Senior Engineering Team Leader Relationship Specialty Start Date End Date Rosa Isela Haskins CRNP [address] [place] [address] Referring Physician Nurse Practitioner 05/13/24 Aniceto Casarez DO [address] [address] Referring Physician Neurology 06/09/24 Senior Engineering Team Leader Relationship Specialty Start Date End Date Rosa Isela Haskins CRNP [address] [place] [address] Referring Physician Nurse Practitioner 05/13/24 Aniceto Casarez DO [address] [address] Referring Physician Neurology 06/09/24 Senior Engineering Team Leader Relationship Specialty Start Date End Date Rosa Isela Haskins CRNP [address] [place] [address] Referring Physician Nurse Practitioner 05/13/24 Aniceto Casarez DO [address] [address] Referring Physician Neurology 06/09/24 Senior Engineering Team Leader Relationship Specialty Start Date End Date Rosa Isela Haskins CRNP [address] [place] [address] Referring Physician Nurse Practitioner 05/13/24 Aniceto Casarez DO [address] [address] Referring Physician Neurology 06/09/24 Senior Engineering Team Leader Relationship Specialty Start Date End Date Rosa Isela Haskins CRNP [address] [place] [address] Referring Physician Nurse Practitioner 05/13/24 Aniceto Casarez DO [address] [address] Referring Physician Neurology 06/09/24 Senior Engineering Team Leader Relationship Specialty Start Date End Date Rosa Isela Haskins CRNP [address] [place] [address] Referring Physician Nurse Practitioner 05/13/24 Aniceto Casarez DO [address] [address] Referring Physician Neurology 06/09/24 Senior Engineering Team Leader Relationship Specialty Start Date End Date Rosa Isela Haskins CRNP [address] [place] [address] Referring Physician Nurse Practitioner 05/13/24 Aniceto Casarez DO [address] [address] Referring Physician Neurology 06/09/24 Senior Engineering Team Leader Relationship Specialty Start Date End Date Rosa Isela Haskins CRNP [address] [place] [address] Referring Physician Nurse Practitioner 05/13/24 Aniceto Casarez DO [address] [address] Referring Physician Neurology 06/09/24 Senior Engineering Team Leader Relationship Specialty Start Date End Date Rosa Isela Haskins CRNP [address] [place] [address] Referring Physician Nurse Practitioner 05/13/24 Aniceto Casarez DO [address] [address] Referring Physician Neurology 06/09/24 Senior Engineering Team Leader Relationship Specialty Start Date End Date Rosa Isela Haskins CRNP [address] [place] [address] Referring Physician Nurse Practitioner 05/13/24 Aniceto Casarez DO [address] [address] Referring Physician Neurology 06/09/24 Senior Engineering Team Leader Relationship Specialty Start Date End Date Rosa Isela Haskins CRNP [address] [place] [address] Referring Physician Nurse Practitioner 05/13/24 Aniceto Casarez DO [address] [address] Referring Physician Neurology 06/09/24 Senior Engineering Team Leader Relationship Specialty Start Date End Date Rosa Isela Haskins CRNP [address] [place] [address] Referring Physician Nurse Practitioner 05/13/24 Aniceto Casarez DO [address] [address] Referring Physician Neurology 06/09/24 Senior Engineering Team Leader Relationship Specialty Start Date End Date Rosa Isela Haskins CRNP [address] [place] [address] Referring Physician Nurse Practitioner 05/13/24 Aniceto Casarez DO [address] [address] Referring Physician Neurology 06/09/24 Senior Engineering Team Leader Relationship Specialty Start Date End Date Rosa Isela Haskins CRNP [address] [place] [address] Referring Physician Nurse Practitioner 05/13/24 Aniceto Casarez DO [address] [place] [phone] Referring Physician Neurology 06/09/24 Senior Engineering Team Leader Relationship Specialty Start Date End Date Rosa Isela Haskins CRNP [address] [place] [address] Referring Physician Nurse Practitioner 05/13/24 Aniceto Casarez DO [address] [address] Referring Physician Neurology 06/09/24 Senior Engineering Team Leader Relationship Specialty Start Date End Date Rosa Isela Haskins CRNP [address] [place] [address] Referring Physician Nurse Practitioner 05/13/24 Aniceto Casarez DO [address] [address] Referring Physician Neurology 06/09/24 Senior Engineering Team Leader Relationship Specialty Start Date End Date Rosa Isela Haskins CRNP [address] [place] [address] Referring Physician Nurse Practitioner 05/13/24 Aniceto Casarez DO [address] [address] Referring Physician Neurology 06/09/24 Senior Engineering Team Leader Relationship Specialty Start Date End Date Rosa Isela Haskins CRNP [address] [place] [address] Referring Physician Nurse Practitioner 05/13/24 Aniceto Casarez DO [address] [address] Referring Physician Neurology 06/09/24 Senior Engineering Team Leader Relationship Specialty Start Date End Date Rosa Isela Haskins, [facility]IGAN CL[facility] [address] [place] [address] PCP - General Family Medicine 11/27/20 Senior Engineering Team Leader Relationship Specialty Start Date End Date Rosa Isela Haskins WANIGAN CLERK-[employer]OR [employer] [address] [place] [address] PCP - General Family Medicine 11/27/20 Senior Engineering Team Leader Relationship Specialty Start Date End Date Rosa Isela Haskins WANIGAN CLERK-[employer]OR [employer] [address] [place] [address] PCP - General Family Medicine 11/27/20 Senior Engineering Team Leader Relationship Specialty Start Date End Date Rosa Isela Haskins CRNP [address] [place] [address] Referring Physician Nurse Practitioner 05/13/24 Aniceto Casarez DO [address] [place] [address] Referring Physician Neurology 06/09/24 Senior Engineering Team Leader Relationship Specialty Start Date End Date Unallocated, Marino Perez MD [address] [place] [address] PCP - General Family Medicine 11/16/24 Rosa Isela Haskins CRNP Referring Physician Nurse Practitioner 05/13/24 Aniceto Casarez DO [address] [place] [address] Referring Physician Neurology 06/09/24 Angela Estevez PA [address] [place] [address] Physician Bath Mixer Neurology 11/16/24 Senior Engineering Team Leader Relationship Specialty Start Date End Date Unallocated, Marino Perez MD [address] [place] [address] PCP - General Family Medicine 11/16/24 Rosa Isela Haskins CRNP Referring Physician Nurse Practitioner 05/13/24 Aniceto Casarez DO [address] [address] Referring Physician Neurology 06/09/24 Angela Estevez PA [address] [place] [address] Physician Bath Mixer Neurology 11/16/24 Goals (unrecognized section and content) Goals may be documented in a n alternate sectionNot on filedocumented as of this encounterNot on filedocumented as of this encounterNot on filedocumented as of this encounterNot on filedocumented as of this encounter Reason for Visit (unrecogniz ed section and content) Reason Comments Neck Pain Reason Comments Pain Specialty Diagnoses / Procedures Referred By Contac t Referred To Contact Orthopaedic Surgery Diagnoses Ulnar neuropathy of both upper extremities Lisbeth Grimes, AIDAN [address] [place] [address] Phone: tel: Jr. Carson James, [address] [place] [address] Phone: tel: fax: Referral ID Status Reason Start Date Expiration Date V isits Requested Visits Authorized [id number] Closed Consult and Treat 07/06/2024 01/02/2025 1 [...] BE BASED ON THE PRIMARY CLINICAL RECORDS. [employer] provides no warranty or guarantee of the accuracy or completeness of information in this document.
--- NOTE | 2025-04-27 10:36 | PM.CN ---
Consult Note: HPI Data of Consult Patient: known to practice within the last 3 years Consult date: 04/27/25 Requesting Physician: Annie Kerr NP Primary Care Provider: ROSA ISELA FRY Consult Narrative Reason for consult: neck and back pain Narrative: Son Dumas a 59 year old male presents for evaluation of chronic neck and low back pain. pt completed 6 weeks of PT without improvement in pain, has failed to benefit from heat, ice, tylenol, nsaids. currently utilizing zonegran 50-100mg HS, and baclofen 5-10mg BID PRN pain/spasms. pain in neck 0/10 increasing to 1/10 with activity and ROM, pain in low back 4/10 increasing to 8/10 with standing and walking. Pt recently underwent right and left C4/5 C5/6 facet RFA with significant improvement, >80% improvement ongoing. pt noting mild relief from bilateral L4-5 TFESI however noting 100% low back pain vs LE. cc:: CC: Annie Kerr NP Review of Systems ROS Musculoskeletal Reports: back pain PFSH PFSH Medical History Low back pain ?M54.50 - Low back pain, unspecified (ICD-10) Neck pain ?M54.2 - Cervicalgia (ICD-10) Obesity ?E66.9 - Obesity, unspecified (ICD-10) Hypertension ?I10 - Essential (primary) hypertension (ICD-10) Smoker ?F17.200 - Nicotine dependence, unspecified, uncomplicated (ICD-10) Surgical History (Updated 12/02/24 @ 14:38 by Aundrea Castro) H/O arthroscopic knee surgery ?Z98.890 - Other specified postprocedural states (ICD-10) H/O cataract extraction ?Z98.49 - Cataract extraction status, unspecified eye (ICD-10) Meds Home Medications and Allergies Home Medications ?Medication ?Instructions ?Recorded ?Confirmed ?Type baclofen 10 mg tablet 10 mg PO BID PRN muscle spasm 10/18/24 03/27/25 History zonisamide 100 mg capsule 100 mg PO .hs 10/18/24 03/27/25 History (Zonegran) Allergies Allergy/AdvReac Type Severity Reaction Status Date / Time bees Allergy Mild Unknown Uncoded 03/27/25 08:03 Exam Constitutional Documenting provider has reviewed patient's vital signs: yes Common normals: no apparent distress, oriented x3, healthy appearing, alert and well nourished General appearance: cooperative HENMT Common normals: normocephalic, hearing grossly normal bilaterally and moist oral mucous membranes Head and scalp: normocephalic Eye Common normals: PERRL Pupil: PERRL Neck & C-Spine Common normals: full ROM General: normal visual inspection Cervical spine: cervical ROM normal; no pain with cervical ROM and no cervical spine tenderness Chest Common normals: inspection of chest normal Respiratory Common normals: normal respiratory effort, no retractions and no use of accessory muscles Back & Pelvis Lumbar spine/lower back: ROM limited, pain with ROM, lumbar spinal tenderness and straight leg raise negative bilaterally Other: bilateral L3-S1 facet loading sensation 5/5 in BLE strength 5/5 in BLE Neuro Common normals: oriented x3 Sensorium/orientation: alert Psych Common normals: mental status grossly normal, thought process normal, cooperative, affect normal, speech normal and activity/motor behavior normal Speech: normal speech Thought process: normal thought process Results Additional Findings Additional findings: If on a controlled substance or opioids, I have checked an [place]AR[place] report on this patient and there are no aberrancies noted in the prescribing history.??If on a controlled substance or opioid a drug screen was completed and reviewed within the last year, and if there has not been a drug screen completed we ordered one today to monitor higher risk, state monitored pain medication use. As part of providing excellent, safe, comprehensive care, the following was completed at our patient's visit: 1. A medication reconciliation and review to ensure accurate knowledge of current/active medications, including asking our patients to inform us about any faez-jpa-blovijf medications or herbal remedies/nutritional supplements/alternative remedies. 2. A review to specifically ensure our patients have had annual screening for screening for depression, screening for tobacco use, and screening for unhealthy alcohol use. For concerning screenings had a discussion with the patient, provided patient education, and recommended follow-up with primary care provider when appropriate. If patient noted with a risk of falling, they received education on strength, gait, and balance training to prevent future risk of falling. Portions of this note may have been carried over from the previous visit and updated as appropriate. Please note this office utilizes paper charting in addition to the electronic medical record. A list of current medications, vitals, and PMH is available there as the clinical staff outside of [facility] do not have access to [employer] charting during the clinic day operations. As part of providing quality comprehensive care the current medications, vitals, and PMH were reviewed in the paper chart. Assessment and Plan Assessment and Plan (1) Lumbar spondylosis: (2) Cervical spondylosis: Assessment and Plan: significant ongoing improvement post cervical RFAs (3) Lumbar stenosis with neurogenic claudication: (4) Myalgia, other site: Plan The patient has had over 3 months of moderate to severe neck and low back pain with functional impairment and inadequate response to conservative care including NSAIDS (unless there are contraindication such as concurrent blood thinners), multiple oral or topical pain medications, and home exercise program/physical therapy.? Patient has completed >6 weeks of guided home exercise program and/or formal physical therapy program without relief of their symptoms.? I have reviewed the imaging of the cervical/lumbar spine and no red flags were identified.? The Oswestry Disability Index was completed, and the patient scored a 42%.? bilateral L4-5 L5-S1 mbb x2 for facet mediated pain in consideration of RFA continue HEP as tolerated continue current medications f/u after each injection
== END 2025-04-27 10:15 | disposition home or self-care (01) ==
LOC: PM 10:14
PROVIDERS: PCP Nurse Practitioner; Visit Provider Nurse Practitioner
DX: M47.816 Spondylosis without myelopathy or radiculopathy, lumbar region (principal); M47.812 Spondylosis without myelopathy or radiculopathy, cervical region; M48.062 Spinal stenosis, lumbar region with neurogenic claudication; M79.18 Myalgia, other site
CPT/HCPCS: G0463

== ENCOUNTER 2025-07-17 10:08 | Day surgery (SDC) | payer OTHER, SELFPAY ==
[2025-07-17 10:43] VITALS: BP 144/87; PULSE 78; TEMP 36.3; O2SAT 97
[2025-07-17 11:32] VITALS: BP 148/92; PULSE 101; O2SAT 97
[2025-07-17 11:33] VITALS: BP 138/84; PULSE 65; O2SAT 95
[2025-07-17] MEDS: LIDOCAINE HCL 2% 400 MG/20 ML MDV INJ (11:34)
[2025-07-17] MEDS: BUPIVACAINE HCL 0.25% PF 25 MG/10 ML VIAL 8 ML INJ (11:34)
--- NOTE | 2025-07-17 11:39 | W.PM.PROCNOT ---
Date of procedure: 07/17/25 Pre-op diagnosis: Pain due to lumbar spondylosis without myelopathy Post-op diagnosis: same as pre-op Procedure: Procedure: Bilateral L4-5, L5-S1 medial branch block Medications: Bupivacaine 0.25% 6cc The patient was seen and examined in the preoperative holding area.? An informed consent was obtained and placed on the chart.? The patient was brought to the medical procedure unit and placed in the prone position.? A timeout was completed verifying correct patient, procedure site, positioning, plan, and special equipment.? Using aseptic technique, the needle was placed at left L4. Under direct fluoroscopic visualization a Quincke-tipped spinal needle was advanced to the junction of the superior articulating process with the transverse process at the designated medial branch segment.? Preceded by negative aspiration, the above-mentioned injectate was placed in 1 mL aliquots.? The procedure was repeated at left l5, S1.? The needle was removed and insertion site was covered. The same procedure, at the same levels, was completed on the right side. The patient was taken to the postprocedural recovery area and monitored for an appropriate length of time before found suitable for discharge in the company of a responsible adult. Anesthesia: Local Surgeon: Frank Bah Pathology: none sent Condition: stable Disposition: no change
== END 2025-07-17 11:41 | disposition home or self-care (01) ==
PROVIDERS: PCP Nurse Practitioner; Visit Provider Anesthesiology
DX: M47.816 Spondylosis without myelopathy or radiculopathy, lumbar region (principal); G89.29 Other chronic pain
CPT/HCPCS: 64493; 64494; J0665

== ENCOUNTER 2025-07-20 12:48 | Outpatient (OUT) | payer MEDICARE, SELFPAY ==
--- NOTE | 2025-07-20 13:17 | PM.CN ---
Consult Note: HPI Data of Consult Patient: known to practice within the last 3 years Consult date: 04/27/25 Requesting Physician: Annie Kerr NP Primary Care Provider: ROSA ISELA FRY Consult Narrative Reason for consult: neck and back pain Narrative: Son Dumas a 59 year old male presents for evaluation of chronic neck and low back pain. pt completed 6 weeks of PT without improvement in pain, has failed to benefit from heat, ice, tylenol, nsaids. currently utilizing baclofen 5-10mg BID PRN pain/spasms with mild drowsiness. has stopped zonegran since last visit as it was causing fatigue with baclofen. pain in low back 6/10 cramping tight pain increasing to 8/10 with standing, lifting, bending, and walking. pt underwent bilateral L4-5 L5-S1 medial branch block #1 with >80% improvement while anesthetized, preop pain up to 8/10 post op pain 0-1/10 with twisting, lifting, walking, standing for greater than 2 hours. cc:: CC: Annie Kerr NP Review of Systems ROS Musculoskeletal Reports: back pain PFSH PFSH Medical History Low back pain ?M54.50 - Low back pain, unspecified (ICD-10) Neck pain ?M54.2 - Cervicalgia (ICD-10) Obesity ?E66.9 - Obesity, unspecified (ICD-10) Hypertension ?I10 - Essential (primary) hypertension (ICD-10) Smoker ?F17.200 - Nicotine dependence, unspecified, uncomplicated (ICD-10) Surgical History H/O arthroscopic knee surgery ?Z98.890 - Other specified postprocedural states (ICD-10) H/O cataract extraction ?Z98.49 - Cataract extraction status, unspecified eye (ICD-10) Meds Home Medications and Allergies Home Medications ?Medication ?Instructions ?Recorded ?Confirmed ?Type baclofen 10 mg tablet 10 mg PO BID PRN muscle spasm 10/18/24 07/17/25 History zonisamide 100 mg capsule 100 mg PO .hs 10/18/24 07/17/25 History (Zonegran) Allergies Allergy/AdvReac Type Severity Reaction Status Date / Time bees Allergy Mild Unknown Uncoded 07/17/25 10:50 Exam Constitutional Documenting provider has reviewed patient's vital signs: yes Common normals: no apparent distress, oriented x3 and alert General appearance: cooperative HENMT Common normals: normocephalic, hearing grossly normal bilaterally and moist oral mucous membranes Head and scalp: normocephalic Eye Common normals: PERRL Pupil: PERRL Neck & C-Spine Common normals: full ROM General: normal visual inspection Cervical spine: cervical ROM normal; no pain with cervical ROM and no cervical spine tenderness Chest Common normals: inspection of chest normal Respiratory Common normals: normal respiratory effort, no retractions and no use of accessory muscles Back & Pelvis Lumbar spine/lower back: ROM limited, pain with ROM, lumbar spinal tenderness and straight leg raise negative bilaterally Other: bilateral L3-S1 facet loading sensation 5/5 in BLE strength 5/5 in BLE Neuro Common normals: oriented x3 Sensorium/orientation: alert Psych Common normals: mental status grossly normal, thought process normal, cooperative, affect normal, speech normal and activity/motor behavior normal Speech: normal speech Thought process: normal thought process Results Additional Findings Additional findings: If on a controlled substance or opioids, I have checked an OARRS report on this patient and there are no aberrancies noted in the prescribing history.??If on a controlled substance or opioid a drug screen was completed and reviewed within the last year, and if there has not been a drug screen completed we ordered one today to monitor higher risk, state monitored pain medication use. As part of providing excellent, safe, comprehensive care, the following was completed at our patient's visit: 1. A medication reconciliation and review to ensure accurate knowledge of current/active medications, including asking our patients to inform us about any jixe-kwy-xgzbqzt medications or herbal remedies/nutritional supplements/alternative remedies. 2. A review to specifically ensure our patients have had annual screening for screening for depression, screening for tobacco use, and screening for unhealthy alcohol use. For concerning screenings had a discussion with the patient, provided patient education, and recommended follow-up with primary care provider when appropriate. If patient noted with a risk of falling, they received education on strength, gait, and balance training to prevent future risk of falling. Portions of this note may have been carried over from the previous visit and updated as appropriate. Please note this office utilizes paper charting in addition to the electronic medical record. A list of current medications, vitals, and PMH is available there as the clinical staff outside of myself do not have access to [facility] charting during the clinic day operations. As part of providing quality comprehensive care the current medications, vitals, and PMH were reviewed in the paper chart. Assessment and Plan Assessment and Plan (1) Lumbar spondylosis: (2) Cervical spondylosis: Assessment and Plan: significant ongoing improvement post cervical RFAs (3) Lumbar stenosis with neurogenic claudication: (4) Myalgia, other site: Plan The patient has had over 3 months of moderate to severe neck and low back pain with functional impairment and inadequate response to conservative care including NSAIDS (unless there are contraindication such as concurrent blood thinners), multiple oral or topical pain medications, and home exercise program/physical therapy.? Patient has completed >6 weeks of guided home exercise program and/or formal physical therapy program without relief of their symptoms.? I have reviewed the imaging of the cervical/lumbar spine and no red flags were identified.? The Oswestry Disability Index was completed, and the patient scored a 46%.? bilateral L4-5 L5-S1 mbb #2 for facet mediated pain in consideration of RFA continue HEP as tolerated dc zonegran, continue baclofen 10mg bid prn pain/spasms f/u after each injection
== END 2025-07-20 12:49 | disposition home or self-care (01) ==
PROVIDERS: PCP Nurse Practitioner; Visit Provider Nurse Practitioner
DX: M47.816 Spondylosis without myelopathy or radiculopathy, lumbar region (principal); M47.812 Spondylosis without myelopathy or radiculopathy, cervical region; M48.062 Spinal stenosis, lumbar region with neurogenic claudication; M79.18 Myalgia, other site
CPT/HCPCS: G0463